=== PATIENT | female | born 1950 | race Caucasian/White ===

== ENCOUNTER 2020-03-12 23:58 | Inpatient (IN) | payer OTHER ==
--- OUTSIDE RECORDS SUMMARY | 2020-03-13 00:08 | XMS REPORT | Clinical Summary ---
:1950 Author Organization [facility] Address [address] [place] [address] Care Team Providers Name Role Phone Asked, Pcp Primary Care Provider Unavailable Allergies Active Allergy Reactions Severity Noted Date Comments Albuterol Unknown Reaction High 03/28/2019 Nausea, fee ls really sick Amoxicillin-Pot Itching Medium 12/10/2014 Clavulanate Medications Medication Sig Dispensed Refills Start End Status Date Date cholecalciferol, Take 2,000 Units 0 Active vitamin D3, by mouth daily. (VITAMIN D3) 1,000 unit tablet ipratropium-albute Take 3 mL by 0 Active rol (DUO-NEB) nebulization 4 0.5-2.5 mg/3 mL (four) times a nebulizer day as needed for wheezing. Lactobacillus Take 1 tablet by 0 Active acidoph-L.bulgar mouth daily. (FLORANEX) 1 million cell tablet aspirin (ECOTRIN) Take 81 mg by 0 Active 81 MG enteric mouth daily. coated tablet ferrous sulfate Take 325 mg by 0 Active 325 (65 FE) MG mouth 3 (three) tablet times a day with meals. melatonin 3 mg Take 3 mg by 0 Ac tive tablet mouth nightly. capecitabine Take 2 tabs po 120 tablet 0 A ctive (XELODA) 500 mg bid on Wednesday 0 021 chemo thru Wednesday on tabletIndications: days of Rectal radiation adenocarcinoma therapy (HCC) amLODIPine Take 10 mg by 2 Disco ntinued (NORVASC) 10 mg mouth daily. 7 019 ( Med List tablet Cleanup) carvedilol (COREG) Take 3.125 mg by 1 03/06/ Discontinued 3.125 MG tablet mouth every 12 7 019 (Med List (twelve) hours. [place] nup) clopidogrel Take 75 mg by 0 Disc ontinued (PLAVIX) 75 mg mouth daily. 7 019 (M ed List tablet Cleanup) MULTAQ 400 mg Take 400 mg by 1 D iscontinued tablet mouth 2 (two) 7 019 (Med L ist times a day. Cleanup ) levalbuterol Inhale 2 puffs 0 Di scontinued (XOPENEX HFA) 45 every 4 (four) 7 019 (Stop Taking at mcg/actuation hours as needed. Discharge) inhaler omeprazole Take 20 mg by 3 Disco ntinued (PriLOSEC) 20 MG mouth daily 7 020 ( Stop Taking at capsule before lunch. Discha rge) valsartan (DIOVAN) Take 320 mg by 2 Discontinued 320 MG tablet mouth nightly. 7 019 ( Stop Taking at Discharge) amLODIPine Take 5 mg by 0 Discon tinued (NORVASC) 5 mg mouth 2 (two) 019 ( Stop Taking at tablet times a day. Dischar ge) carvedilol (COREG) Take 3.125 mg by 0 03/06 03/06 Discontinued 6.25 MG tablet mouth 2 (two) 019 ( Stop Taking at times a day with Dis charge) meals. predniSONE Take 10 mg by 0 Disco ntinued (DELTASONE) 10 mg mouth See Admin 9 019 (Stop Taking at tablet Instructions. Discha rge) Take 4 tablet daily for 3 days,starting on 03/26/2019, then 3 tablet daily for 3 days, then 2 tablet daily for 3 days,then 1 tablet daily for 3 days. pitavastatin Take 2 mg by 0 Disc ontinued calcium (LIVALO) 2 mouth nightly. 019 mg tablet aspirin (ECOTRIN) Take 162 mg by 0 Discontinued 81 MG enteric mouth daily. 019 (St op Taking at coated tablet Discha rge) diazePAM (VALIUM) Take 5 mg by 0 Discontinued 5 MG tablet mouth daily as 020 (St op Taking at needed for Discharge ) anxiety. clonIDINE Take 0.1 mg by 0 Disco ntinued (CATAPRES) 0.1 MG mouth every 6 020 (Stop Taking at tablet (six) hours as Disch arge) needed for high blood pressure (SBP>160). carvedilol (COREG) Take 1 tablet 60 tablet 1 6.25 MG tablet (6.25 mg total) 9 019 by mouth every 12 (twelve) hours for 60 days. valsartan (DIOVAN) Take 1 tablet 60 tablet 1 Discontinued 160 MG tablet (160 mg total) 9 019 ( Stop Taking at by mouth every Disch arge) 12 (twelve) hours for 60 days. arformoterol Take 2 mL (15 120 mL 2 Dis continued (BROVANA) 15 mcg/2 mcg total) by 9 019 mL solution for nebulization 2 nebulization (two) times a day for 90 days. budesonide Take 2 mL (0.5 60 mL 2 Disc ontinued (PULMICORT) 0.5 mg total) by 9 019 mg/2 mL nebulizer nebulization solution once daily for 90 days. pantoprazole Take 1 tablet 60 tablet 2 Dis continued (PROTONIX) 40 MG (40 mg total) by 9 019 EC tablet mouth 2 (two) times a day for 90 days. NIFEdipine XL Take 1 tablet 60 tablet 2 Ex pired (PROCARDIA XL) 30 (30 mg total) by 9 019 MG 24 hr tablet mouth 2 (two) times a day for 90 days. rosuvastatin Take 1 tablet (5 30 tablet 2 (CRESTOR) 5 MG mg total) by 9 019 tablet mouth nightly for 90 days. ipratropium Take 2.5 mL (0.5 675 mL 0 E xpired (ATROVENT) 0.02 % mg total) by 9 019 nebulizer solution nebulization every 6 (six) hours while awake for 90 days. predniSONE Take 3 tablets 7 tablet 0 Expi red (DELTASONE) 10 mg daily for 1 day, 9 019 tablet 2 tablets daily for 3 days, 1 tablet daily for 3 days azithromycin Take 2 tablets 6 tablet 0 Di scontinued (ZITHROMAX) 250 MG (500 mg total) 9 019 (Stop Taking at tablet by mouth daily Disch arge) for 5 days. Take 2 tablets the first day, then 1 tablet daily for 4 days. predniSONE Take 2 tablets 10 tablet 0 Disc ontinued (DELTASONE) 20 mg (40 mg total) by 9 (Stop Taking at tablet mouth daily for Disc harge) 5 days. fluticasone-umecli Inhale 100 mcg 1 each 4 din-vilanter daily for 30 (TRELEGY ELLIPTA) days. 100-62.5-25 mcg blister with device furosemide (LASIX) Take 1 tablet 30 tablet 11 Discontinued 40 mg tablet (40 mg total) by 9 (Stop Taking at mouth daily. Dischar ge) guaiFENesin Take 1 tablet 30 tablet 0 Disc ontinued (MUCINEX) 600 mg (600 mg total) 9 019 tablet extended by mouth 2 (two) release 12hr times a day. arformoterol Take 15 mcg by 0 Di scontinued (BROVANA) 15 mcg/2 nebulization 2 019 (Stop Taking at mL solution for (two) times a Discharge) nebulization day. budesonide Take 0.5 mg by 0 Disc ontinued (PULMICORT) 0.5 nebulization 019 ( Stop Taking at mg/2 mL nebulizer once daily. Discharge) solution Unknown dose doxycycline Take 1 tablet 14 tablet 0 Expi red (VIBRA-TABS) 100 (100 mg total) 9 019 MG tablet by mouth 2 (two) times a day for 7 days. predniSONE Take 4 tabs 55 tablet 0 (DELTASONE) 10 mg (40mg) once 9 019 tablet daily X5 days, then take 3 tabs X5 days, then take 2 tabs X5 days, then take 1 tab X5 days aspirin (ECOTRIN) Take 1 tablet 30 tablet 0 81 MG enteric (81 mg total) by 9 019 coated tablet mouth daily for 30 days. L. Take 2 capsules 60 each 0 Expi red acidophilus,casei, by mouth daily 9 019 rhamnosus (BIO K for 30 days. PLUS) 50 billion cell capsule,delayed release(DR/EC) capsule HYDROcodone-acetam Take 1 tablet by 20 tablet 0 04/05 3/2 inophen (NORCO) mouth every 6 9 019 5-325 mg per (six) hours as tabletIndications: needed for acute pain severe pain for up to 5 days .Acute Pain. Max Daily Amount: 4 tablets BROVANA 15 mcg/2 15 mcg 2 (two) 0 Discontinued mL solution for times a day as 9 020 (Stop Taking at nebulization needed. Dischar ge) aspirin-calcium Take 81 mg by 0 carbonate 81 mouth. 9 019 mg-300 mg calcium(777 mg) tablet furosemide (LASIX) 40 mg daily. 1 Discontinued 20 mg tablet 9 020 (Stop T aking at Discharge) levalbuterol 2 puffs by Other 0 Discontinued (XOPENEX HFA) 45 route every 4 020 (Stop Taking at mcg/actuation (four) hours as Discharge) inhaler needed. XARELTO 20 mg Take 20 mg by 3 Di scontinued tablet mouth every 9 020 (Stop Ta clare at evening. Discharge) valsartan (DIOVAN) Take 320 mg by 3 Discontinued 320 MG tablet mouth daily. 9 020 (St op Taking at Discharge) azithromycin Take first 2 6 tablet 0 Expi red (ZITHROMAX) 250 MG tablets 9 019 tablet together, then 1 every day until finished. famotidine Take 40 mg by 0 Disco ntinued (PEPCID) 40 MG mouth daily. 020 (S top Taking at tablet Discharge) acetaminophen Take 325 mg by 0 D iscontinued (TYLENOL) 325 MG mouth every 4 020 (Stop Taking at tablet (four) hours as Disc harge) needed for mild pain or fever. oxyCODone-acetamin Take 1 tablet by 0 08/06 01/03 Discontinued ophen (PERCOCET) mouth every 4 020 (Stop Taking at 5-325 mg per (four) hours as D ischarge) tabletIndications: needed for acute pain moderate pain (pain score of 4-6) .acute pain. atorvastatin Take 20 mg by 0 Dis continued (LIPITOR) 20 MG mouth daily. 020 ( Stop Taking at tablet Default OP ins Disch arge) benzonatate Take 100 mg by 0 Dis continued (TESSALON) 100 MG mouth 3 (three) 020 (Stop Taking at capsule times a day as Disch arge) needed for cough. budesonide Take 0.5 mg by 0 Disc ontinued (PULMICORT) 0.5 nebulization 020 ( Stop Taking at mg/2 mL nebulizer once daily. Discharge) solution budesonide-formote Inhale 2 puffs 2 0 08/06 01/03 Discontinued rol (SYMBICORT) (two) times a 020 (Stop Taking at 160-4.5 day. Discharge) mcg/actuation inhaler carvedilol (COREG) Take 12.5 mg by 0 08/31 Discontinued 12.5 MG tablet mouth 2 (two) 020 ( Stop Taking at times a day with Dis charge) meals. ciprofloxacin Take 500 mg by 0 D iscontinued (CIPRO) 500 MG mouth every 12 020 (Stop Taking at tablet (twelve) hours. Disc harge) insulin lispro Inject under the 0 Discontinued (HumaLOG) 100 skin 3 (three) 020 ( Stop Taking at unit/mL injection times a day Discharge) before meals. Sliding scale ipratropium Take 500 mcg by 0 Di scontinued (ATROVENT) 0.02 % nebulization 4 020 (Stop Taking at nebulizer solution (four) times a Discharge) day as needed for wheezing or shortness of breath. predniSONE Take 20 mg by 0 Disco ntinued (DELTASONE) 20 mg mouth daily. 020 (Stop Taking at tablet Discharge) tiotropium Place 1 puff (1 30 capsule 0 Ex pired (SPIRIVA) 18 mcg capsule total) 0 020 per inhalation into inhaler and capsule inhale once daily for 30 days. sucralfate Take 10 mL (1 g 1200 mL 0 Exp ired (CARAFATE) 100 total) by mouth 0 020 mg/mL suspension 4 (four) times a day before meals and nightly for 30 days. sodium chloride 1 spray into 0.61 mL 0 E xpired (OCEAN) 0.65 % each nostril 2 0 020 nasal spray (two) times a day for 30 days. potassium chloride Take 2 capsules 120 capsule 0 01/09 (MICRO-K) 10 MEQ (20 mEq total) 0 020 CR capsule by mouth 2 (two) times a day for 30 days. pantoprazole Take 1 tablet 60 tablet 0 Exp ired (PROTONIX) 40 MG (40 mg total) by 0 020 EC tablet mouth 2 (two) times a day for 30 days. losartan (COZAAR) Take 0.5 tablets 30 tablet 0 09/29 25 MG tablet (12.5 mg total) 0 020 by mouth 2 (two) times a day for 30 days. lactulose 20 Take 30 mL (20 g 900 mL gram/30 mL total) by mouth 0 020 solution daily for 30 days. isosorbide Take 1 tablet (5 60 tablet 0 Ex pired dinitrate mg total) by 0 020 (ISORDIL) 5 MG mouth 2 (two) tablet times a day for 30 days. hydrocortisone Insert into the 28 g 0 (ANUSOL-HC) 2.5 % rectum 2 (two) 0 020 rectal cream times a day for 30 days. guaiFENesin Take 1 tablet 60 tablet 0 Expi red (MUCINEX) 600 mg (600 mg total) 0 020 tablet extended by mouth 2 (two) release 12hr times a day for 30 days. docusate sodium Take 1 capsule 60 capsule 0 (COLACE) 100 MG (100 mg total) 0 020 capsule by mouth 2 (two) times a day for 30 days. clopidogreL Take 1 tablet 30 tablet 0 Expi red (PLAVIX) 75 mg (75 mg total) by 0 020 tablet mouth daily for 30 days. amLODIPine Take 1 tablet 60 tablet 0 Expir ed (NORVASC) 2.5 mg (2.5 mg total) 0 020 tablet by mouth 2 (two) times a day for 30 days. amIODarone Take 1 tablet 30 tablet 0 Expir ed (PACERONE) 200 MG (200 mg total) 0 020 tablet by mouth daily for 30 days. furosemide (LASIX) Take 1 tablet 60 tablet 0 40 mg tablet (40 mg total) by 0 020 mouth 2 (two) times a day for 30 days. carvediloL (COREG) Take 1 tablet 60 tablet 0 6.25 MG tablet (6.25 mg total) 0 020 by mouth 2 (two) times a day for 30 days. budesonide Take 2 mL (0.5 120 mL 0 Expi red (PULMICORT) 0.5 mg total) by 0 020 mg/2 mL nebulizer nebulization 2 solutionIndication (two) times a s: Acute on day for 30 days. chronic respiratory failure with hypercapnia (HCC), Acute on chronic combined systolic and diastolic congestive heart failure (HCC) arformoteroL Take 2 mL (15 60 mL 0 Exp ired (BROVANA) 15 mcg/2 mcg total) by 0 020 mL solution for nebulization 2 nebulization (two) times a day as needed (shortness of breath) for up to 30 days. atorvastatin Take 1 tablet 30 tablet 0 Exp ired (LIPITOR) 20 MG (20 mg total) by 0 020 tablet mouth daily for 30 days. Default OP ins ipratropium Take 2.5 mL (0.5 300 mL 0 E xpired (ATROVENT) 0.02 % mg total) by 0 020 nebulizer nebulization solutionIndication every 6 (six) s: Acute on hours for 30 chronic days. respiratory failure with hypercapnia (HCC), Acute on chronic combined systolic and diastolic congestive heart failure (HCC) capecitabine Take 2 tabs po 120 tablet 0 D iscontinued (XELODA) 500 mg bid on Wednesday 0 020 (Reorder) chemo tablet thru Wednesday on days of radiation therapy ondansetron Take 1 tablet (8 30 tablet 5 E xpired (ZOFRAN) 8 MG mg total) by 0 020 tablet mouth every 8 (eight) hours as needed for nausea or vomiting for up to 30 days. Active Problems Problem Noted Date Rectal cancer 09/13/2019 Hypercapnic respiratory failure 04/15/2019 Respiratory distress 03/28/2019 Accelerated hypertension 12/31/2016 HTN (hypertension) 12/27/2016 COPD (chronic obstructive pulmonary disease) 7 HLD (hyperlipidemia) 12/27/2016 History of CEA (carotid endarterectomy) 12/27/2016 SAH (subarachnoid hemorrhage) 12/26/2016 Resolved Problems Problem Noted Date Resolved Date Acute on chronic combined systolic and diastolic congestive 07/12/2019 08/31/2019 heart failure Acute decompensated heart failure 07/12/20192019 Chest pain 07/11/2019 08/31/2019 Overview: Added automatically from request for jameson shoemaker [id number] Hyponatremia 12/31/2016 08/31/2019 Encounters Date Type Specialty Care Team Description 02/22/20 Orders Only Pulmonology Nickolas Astudillo Shortness of br eath (Primary Dx); 20 MD Yakov Chronic respira tory failure with hypoxia (HCC); Centrilobular e mphysema (HCC); Former heavy to bacco smoker 11/14/19 Telephone Radiation Oncology Mayi 20 Vipin Andrea MD 10/23/19 Telephone Consult Oncology Barros, Rectal can cer (HCC) (Primary 20 MD Stacey Dx) Ivan Booker MD 10/23/19 Orders Only Oncology Barros, 20 MD Stacey 10/23/19 Travel 10/18/19 Travel 10/17/19 Telephone Oncology Ivan Booker MD 20 10/05/19 Telephone Oncology Xavier, 20 MARQUITA Christopher 10/04/19 [facility] Radiation Oncology [facility], Encounter Vipin Andrea MD 10/03/19 Travel 10/02/19 Telephone Oncology Xavier, 20 MARQUITA Christopher 09/28/19 Telephone Radiation Oncology Castelan, 20 MARQUITA Gutierres 09/22/19 Travel 09/22/19 Telephone Oncology Ivan Booker MD 20 09/20/19 Telephone Oncology Xavier, 20 MARQUITA Christopher 09/15/19 Orders Only Nephrology Estee, Rod Lobato MD 09/13/19 [facility] Radiation Oncology [facility], Encounter Vipin Andrea MD 09/13/19 [facility] Radiation Oncology [facility], Rectal ca ncer (HCC) (Primary 20 Encounter Vipin Andrea, Dx) Jacqui Mcclain, MARQUITA 09/13/19 Travel 09/12/19 Telephone Radiation Oncology [facility], 20 Vipin Andrea MD 09/12/19 Documentation Oncology Ajmagdy, 20 Chantell Cagle [facility] 09/06/19 Orders Only Oncology Xavier, 20 MARQUITA Christopher 09/06/19 Orders Only Oncology Xavier, Rectal adenocar cinoma (HCC) 20 MARQUITA Christopher (Primary Dx) 09/06/19 Telephone Oncology Ivan Booker MD 20 09/06/19 Telephone Oncology Jaswinder, 20 MELECIO Lee 09/06/19 Orders Only Oncology Barros, 20 MD Stacey 09/05/19 Telephone Radiation Oncology [facility], 20 Vpiin Andrea MD 09/04/19 [facility] Radiation Oncology [facility], - Encounter Vipin Andrea 09/05/19 MD Lomeli 08/24/19 Anesthesia Event Gastroenterology Kain, 20 MD Noe Nguyen Teri, NP 08/24/19 Surgery Gastroenterology Arcadio, COLONOSCOPY with biopsies and 20 MD Baron polypectomy 08/21/19 Surgery Procedural Kris Parrish CARDIOVERSIO N [[id number] 20 Cardiology MD Isi (CPT)] 08/21/19 Anesthesia Event Procedural Scott Yon 20 Cardiology WMD Cullen Morales Myra N., COOPERER 08/14/19 Surgery Procedural Carson, Carotid artery stent w 20 Cardiology Tello Khan, embolic protect ion [66811 (CPT)] 08/11/19 Surgery Procedural Kris Parrish CV PCI PERCUTAN EOUS CARDIAC 20 Ned Snowden MD ANGIOPLASTY [[id number] (CPT)] 08/08/19 Surgery Gastroenterology Arcadio, ESOPHAGOGAS TRODUODENOSCOPY MD Baron (EGD)/clip x1/g old probe 08/08/19 Anesthesia Event Gastroenterology Bebo 20 MD Paresh 07/29/19 [facility], 20 Encounter Facility Shailesh Andrea MD 07/20/19 Surgery Gastroenterology Arcadio, ESOPHAGOGAS TRODUODENOSCOPY MD Baron (EGD) WITH BIOP SIES with clips x2 07/20/19 Anesthesia Event Gastroenterology Traci Aponte 20 07/18/19 Surgery Procedural HustKris CV LEFT HEART C ATH LV GRAM Ned Snowden MD WITH CORS [[id number] (CPT)] 07/17/19 Telephone Cardiovascular Romero, 20 Gwen Milton MA 07/12/19 [facility] Internal [facility], Centrilobul ar emphysema (HCC) (Primary Dx); 20 - Encounter Medicine Shailesh Andrea, Chest pain, uns pecified type; 08/31/19 Bilateral carot id artery occlusion; 20 Hyponatremia; Acute on chroni c respiratory failure with hypercapnia (HCC); Acute on chroni c combined systolic and diastolic congestive heart failure (HCC); Athscl heart di sease of [place] cor art w oth ang pctrs (HCC); Coronary artery disease involving [place] coronary artery of [place] heart, angina presence unspecified; Paroxysmal atri al fibrillation (HCC) 07/11/19 Intake Access 20 05/19/20 Emergency Emergency Medicine Deangelo Yen-Te Nasal con gestion (Primary Dx); 19 Luis Fernando, Fever, unspecif ied fever cause 05/17/20 Office Visit Pulmonology [place], Chronic respira tory failure with hypoxia (HCC) (Primary Dx); 19 MD Gayle Centrilobular e mphysema (HCC) 04/16/20 Anesthesia Event General Surgery Roberto, 19 MD Darcy Garza Renea B., COOPERER 04/16/20 Surgery General Surgery Reynaldo, EXPLORATION OF BRACHIAL 19 Maria Fernanda Rodriguez MD ARTERY, OPEN TH ROMBECTOMY, AND PATCH ANGIO PLASTY. 04/15/20 Anesthesia Event General Surgery Roberto, 19 MD Darcy Garza Renea B., COOPERER 04/15/20 Surgery General Surgery Reynaldo, ARTERIOGRAM, REMOVAL OF 19 Maria Fernanda Rodriguez MD ARTERIAL FOREIG N BODY, AND BALLOON ANGIOP LASTY OF RIGHT SUBCLAVIAN TOM RY. 04/15/20 Hospital General Internal Da Silva, Acute on ch ronic respiratory 19 - Encounter Medicine Jostin Garcia, failure with hy percapnia 04/21/20 ([facility]) (Primary Dx) 19 Agustín Mckeon MD Lapsia, MD Amaury Mahmood, MD Samm 04/13/20 Orders Only Pulmonology El, 19 Mando Valerio MD 04/13/20 Orders Only Pulmonology El, 19 Mando Valerio MD 03/28/20 [facility] General Internal Rehrer, Mercer Respiratory distress (Primary Dx); 19 - Encounter Medicine DO Ray Hypertensive emergency; 04/02/20 Santos, COPD with acute exacerbation ([facility]); 19 MD Annika Anxiety; Espinoza, Hyperlipidemia, unspecified hyperlipidemia type Patrick Chambers MD after 03/13/2019 Social History Tobacco Use Types Packs/Day Years Used Date Former Smoker Quit: 2008 Smokeless Tobacco: Never Used Alcohol Use Drinks/Week oz/Week Comments No Sex Assigned at Date Recorded Not on file Job Start Date Occupation Industry Not on file Not on file Not on file Travel History Travel Start Travel End No recent travel history available. Last Filed Vital Signs Vital Sign Reading Time Taken Comments Blood Pressure 160/70 09/13/2019 2:39 PM CDT Pulse 78 09/13/2019 2:39 PM CDT Temperature 36.8 C (98.2 F) 09/13/2019 2:39 PM CDT Respiratory Rate 19 09/13/2019 2:39 PM CDT Oxygen Saturation 95% 09/13/2019 2:39 PM CDT Inhaled Oxygen Concentration - - Weight 78 kg (171 lb 14.4 oz) 09/13/2019 2:39 PM CDT Height 149.9 cm (4' 11") 09/13/2019 2:39 PM CDT Body Mass Index 34.72 09/13/2019 2:39 PM CDT Plan of Treatment Health Maintenance Due Date Last Done Comments BREAST CANCER SCREENING 1998 COLONOSCOPY SCREENING 1998 SHINGLES VACCINES (#1) 1998 65+ PNEUMOCOCCAL VACCINE (1 of 2 - PCV13) 2013 INFLUENZA VACCINE 04/04/2020 Implants Implanted Type Area Global Logistics Manager Device Shelf Model / Identifier Expiration Serial / Date Lot Device Vasclr Clsr Vasoactive Intstnl Peptd 6fr Angio- Seal - [id number] Cardiovascular N/A: N/A 09/01/2017 [id number] / Implanted: 12/28/2016 at [facility] [address] (Quantity not on file) Implants / [id number] Stent System 3.0 X 15mm Resolute Cipriano Otw Coronary - [id number] Coronary Stents N/A: N/A [employer] Lantern [id number] / Implanted: 08/11/2019 at [facility] [address] (Quantity not on file) - CARDIAC / RYHTYM MGMT Clip Resolution 360 235cm 2.8mm (10/Bx) - [id number] Medical Cli ps for N/A: N/A [facility] ENDOSCOPY [id number] / Implanted: 07/20/2019 at [facility] [address] (Quantity not on file) Internal Use / Clip Resolution 360 235cm 2.8mm (10/Bx) - [id number] Medical Cli ps for N/A: N/A [facility] ENDOSCOPY [id number] / Implanted: 07/20/2019 at [facility] [address] (Quantity not on file) Internal Use / Clip Resolution 360 235cm 2.8mm (10/Bx) - [id number] Medical Cli ps for N/A: N/A [facility] ENDOSCOPY [id number] / Implanted: 08/08/2019 at [facility] (Quantity not on file) Internal Use / Clip Resolution 360 235cm 2.8mm (10/Bx) - [id number] Medical Cli ps for N/A: N/A [facility] ENDOSCOPY [id number] / Implanted: 08/24/2019 at [facility] [address] (Quantity not on file) Internal Use / Clip Resolution 360 235cm 2.8mm () - [id number] Medical Cli ps for N/A: N/A [facility] ENDOSCOPY [id number] / Implanted: 08/24/2019 at [facility] (Quantity not on file) Internal Use / Stent Crtd Xact Slf-Xpndbl Tprd Estrada 7-9x30mm - [id number] Pe ripheral or N/A: N/A PICHARDO 02/01/2022 [id number] / Implanted: 08/14/2019 at [facility] (Quantity not on file) Rodger iary Stents VASCULAR / DEVICES [id number] Catheter Angio Mechanical Intern Ii 5fr 100cm Selc Braidd Torque [place] - [id number] Surgical N/A: N/A [facility] PERIPHERAL [id number] / Implanted: 12/28/2016 at [facility] [address] (Quantity not on file) Imp lants; INTERVENTION / Expanders; VASCULAR JAMESON Extenders; Surgical Wires System Clsr Sut Meditd 6fr Perclose Proglide - [id number] Surgic al N/A: N/A PICHARDO 01/01/2021 [id number] / Implanted: 04/15/2019 at [facility] (Quantity not on file) Im plants; VASCULAR / Expanders; DEVICES [id number] Extenders; Surgical Wires System Clsr Sut Meditd 6fr Perclose Proglide - [id number] Surgic al N/A: N/A PICHARDO 12/02/2020 [id number] / Implanted: 04/15/2019 at [facility] (Quantity not on file) Im plants; VASCULAR / Expanders; DEVICES [id number] Extenders; Surgical Wires Patch Vasclr Perph 0.8x8cm Vascu-Guard - [id number] Vascular Gra ft Right: MONTEZ 10/19/2023 [id number] / Implanted: Qty: 1 on 04/16/2019 by Maria Fernanda Jacobs MD a t [facility] Arm, BIOSCIENCE / Upper [id number] Procedures Procedure Name Priority Date/Time Associated Comments Diagnosis B NATRIURETIC PEPTIDE Routine 08/31/2019 6:20 Re sults for this AM SENIOR CORPORATE ACCOUNTANT procedure are i n the results section. HC COMPLETE BLD COUNT Routine 08/31/2019 6:20 Re sults for this W/AUTO DIFF AM SENIOR CORPORATE ACCOUNTANT procedure are i n the results section. ESTIMATED GFR Routine 08/31/2019 4:00 Results fo r this AM SENIOR CORPORATE ACCOUNTANT procedure are i n the results section. MAGNESIUM LEVEL Routine 08/31/2019 4:00 Results for this AM SENIOR CORPORATE ACCOUNTANT procedure are i n the results section. BASIC METABOLIC PANEL Routine 08/31/2019 4:00 Re sults for this AM SENIOR CORPORATE ACCOUNTANT procedure are i n the results section. XR CHEST 1 VW PORTABLE STAT 08/31/2019 12:34 R esults for this AM SENIOR CORPORATE ACCOUNTANT procedure are i n the results section. MRI RECTAL W WO CONTRAST Routine 08/30/2019 7:35 Results for this PM SENIOR CORPORATE ACCOUNTANT procedure are i n the results section. CT ABDOMEN PELVIS WO Routine 08/30/2019 8:24 Res ults for this CONTRAST AM [employer]IOR [employer]PORATE ACCOUNTANT procedure are i n the results section. HC COMPLETE BLD COUNT Routine 08/30/2019 6:00 Re sults for this W/AUTO DIFF AM S[employer]IOR CORPORATE ACCOUNTANT procedure are i n the results section. ESTIMATED GFR Routine 08/30/2019 4:00 Results fo r this AM SENIOR CORPORATE ACCOUNTANT procedure are i n the results section. BASIC METABOLIC PANEL Routine 08/30/2019 4:00 Re sults for this AM [employer]IOR [employer]PORATE ACCOUNTANT procedure are i n the results section. HC COMPLETE BLD COUNT Routine 08/29/2019 5:45 Re sults for this W/AUTO DIFF AM [employer]IOR [employer]PORATE ACCOUNTANT procedure are i n the results section. ESTIMATED GFR Routine 08/29/2019 4:00 Results fo r this AM [employer]IOR [employer]PORATE ACCOUNTANT procedure are i n the results section. BASIC METABOLIC PANEL Routine 08/29/2019 4:00 Re sults for this AM [employer]IOR [employer]PORATE ACCOUNTANT procedure are i n the results section. ESTIMATED GFR Routine 08/28/2019 4:50 Results fo r this AM [employer]IOR [employer]PORATE ACCOUNTANT procedure are i n the results section. BASIC METABOLIC PANEL Routine 08/28/2019 4:50 Re sults for this AM [employer]IOR [employer]PORATE ACCOUNTANT procedure are i n the results section. HC COMPLETE BLD COUNT Routine 08/28/2019 4:50 Re sults for this W/AUTO DIFF AM [employer]IOR [employer]PORATE ACCOUNTANT procedure are i n the results section. HC COMPLETE BLD COUNT Timed 08/27/2019 2:15 Re sults for this W/AUTO DIFF PM [employer]ENIOR CORPORATE ACCOUNTANT procedure are i n the results section. ESTIMATED GFR Timed 08/27/2019 2:00 Results fo r this PM [employer]IOR [employer]PORATE ACCOUNTANT procedure are i n the results section. BASIC METABOLIC PANEL Timed 08/27/2019 2:00 Re sults for this PM [employer]IOR [employer]PORATE ACCOUNTANT procedure are i n the results section. HEMOGLOBIN & HEMATOCRIT STAT 08/26/2019 11:20 Results for this PM [employer]IOR [employer]PORATE ACCOUNTANT procedure are i n the results section. SODIUM LEVEL Routine 08/26/2019 3:20 Results for this PM [employer]IOR [employer]PORATE ACCOUNTANT procedure are i n the results section. MANUAL DIFFERENTIAL Routine 08/26/2019 5:40 Resu lts for this AM [employer]IOR [employer]PORATE ACCOUNTANT procedure are i n the results section. PARTIAL THROMBOPLASTIN Routine 08/26/2019 5:40 R esults for this TIME (PTT) AM [employer]IOR [employer]PORATE ACCOUNTANT procedure are i n the results section. PROTHROMBIN TIME WITH Routine 08/26/2019 5:40 Re sults for this INR AM [employer]IOR [employer]PORATE ACCOUNTANT procedure are i n the results section. CBC WITH PLATELET AND Routine 08/26/2019 5:40 Re sults for this DIFFERENTIAL AM [employer]IOR [employer]PORATE ACCOUNTANT procedure are i n the results section. ESTIMATED GFR Routine 08/26/2019 5:40 Results fo r this AM [employer]IOR [employer]PORATE ACCOUNTANT procedure are i n the results section. MAGNESIUM LEVEL Routine 08/26/2019 5:40 Results for this AM SENIOR [employer]PORATE ACCOUNTANT procedure are i n the results section. B NATRIURETIC PEPTIDE Routine 08/26/2019 5:40 Re sults for this AM SENIOR [employer]PORATE ACCOUNTANT procedure are i n the results section. BASIC METABOLIC PANEL Routine 08/26/2019 5:40 Re sults for this AM S[employer]IOR [employer]PORATE ACCOUNTANT procedure are i n the results section. ESTIMATED GFR Routine 08/25/2019 5:38 Results fo r this AM S[employer]IOR [employer]PORATE ACCOUNTANT procedure are i n the results section. CARCINOEMBRYONIC ANTIGEN Routine 08/25/2019 5:38 Results for this (CEA) AM [employer]IOR [employer]PORATE ACCOUNTANT procedure are i n the results section. MAGNESIUM LEVEL Routine 08/25/2019 5:38 Results for this AM [employer]IOR [employer]PORATE ACCOUNTANT procedure are i n the results section. B NATRIURETIC PEPTIDE Routine 08/25/2019 5:38 Re sults for this AM SENIOR [employer]PORATE ACCOUNTANT procedure are i n the results section. BASIC METABOLIC PANEL Routine 08/25/2019 5:38 Re sults for this AM S[employer]IOR [employer]PORATE ACCOUNTANT procedure are i n the results section. HC COMPLETE BLD COUNT Routine 08/25/2019 5:38 Re sults for this W/AUTO DIFF AM [employer]IOR [employer]PORATE [employer]ANT procedure are i n the results section. THYROID PEROXIDASE Routine 08/25/2019 5:38 Resul ts for this ANTIBODY AM [employer]ATE [employer]ANT procedure are i n the results section. SURGICAL PATHOLOGY Routine 08/24/2019 10:11 Resul ts for this REQUEST AM [employer]IOR [employer]PORATE ACCOUNTANT procedure are i n the results section. SURGICAL PATHOLOGY Routine 08/24/2019 10:11 Resul ts for this REQUEST AM [employer]IOR [employer]PORATE [employer]ANT procedure are i n the results section. SURGICAL PATHOLOGY Routine 08/24/2019 9:11 Resul ts for this REQUEST AM [employer]IOR [employer]PORATE ACC[employer]ANT procedure are i n the results section. COLONOSCOPY 08/24/2019 7:53 Chest pain, AM S[employer]IOR CORPORATE ACCOUNTANT unspecified type B NATRIURETIC PEPTIDE Routine 08/24/2019 4:45 Re sults for this AM S[employer]IOR CORPORATE ACCOUNTANT procedure are i n the results section. HC COMPLETE BLD COUNT Routine 08/24/2019 4:45 Re sults for this W/AUTO DIFF AM [employer]IOR [employer]PORATE ACCOUNTANT procedure are i n the results section. ESTIMATED GFR Routine 08/24/2019 4:00 Results fo r this AM [employer]IOR [employer]PORATE ACCOUNTANT procedure are i n the results section. MAGNESIUM LEVEL Routine 08/24/2019 4:00 Results for this AM [employer]IOR [employer]PORATE ACCOUNTANT procedure are i n the results section. BASIC METABOLIC PANEL Routine 08/24/2019 4:00 Re sults for this AM S[employer]IOR [employer]PORATE ACCOUNTANT procedure are i n the results section. US THYROID Routine 08/23/2019 9:30 Results for this AM S[employer]IOR [employer]PORATE ACCOUNTANT procedure are i n the results section. B NATRIURETIC PEPTIDE Routine 08/23/2019 6:05 Re sults for this AM SENIOR CORPORATE ACCOUNTANT procedure are i n the results section. HC COMPLETE BLD COUNT Routine 08/23/2019 6:05 Re sults for this W/AUTO DIFF AM S[employer]IOR [employer]PORATE ACCOUNTANT procedure are i n the results section. ESTIMATED GFR Routine 08/23/2019 4:00 Results fo r this AM [employer]IOR [employer]PORATE ACCOUNTANT procedure are i n the results section. T3 Routine 08/23/2019 4:00 Results for this AM S[employer]IOR CORPORATE ACCOUNTANT procedure are i n the results section. T4, FREE Routine 08/23/2019 4:00 Results for this AM [employer]IOR CORPORATE ACCOUNTANT procedure are i n the results section. THYROID STIMULATING Routine 08/23/2019 4:00 Resu lts for this HORMONE AM [employer]IOR [employer]PORATE ACCOUNTANT procedure are i n the results section. MAGNESIUM LEVEL Routine 08/23/2019 4:00 Results for this AM SENIOR CORPORATE ACCOUNTANT procedure are i n the results section. BASIC METABOLIC PANEL Routine 08/23/2019 4:00 Re sults for this AM S[employer]IOR CORPORATE ACCOUNTANT procedure are i n the results section. MANUAL DIFFERENTIAL Routine 08/22/2019 6:05 Resu lts for this AM S[employer]IOR CORPORATE ACCOUNTANT procedure are i n the results section. B NATRIURETIC PEPTIDE Routine 08/22/2019 6:05 Re sults for this AM SENIOR CORPORATE ACCOUNTANT procedure are i n the results section. CBC WITH PLATELET AND Routine 08/22/2019 6:05 Re sults for this DIFFERENTIAL AM [employer]IOR [employer]PORATE ACCOUNTANT procedure are i n the results section. ESTIMATED GFR Routine 08/22/2019 4:00 Results fo r this AM SENIOR CORPORATE ACCOUNTANT procedure are i n the results section. MAGNESIUM LEVEL Routine 08/22/2019 4:00 Results for this AM S[employer]IOR CORPORATE ACCOUNTANT procedure are i n the results section. BASIC METABOLIC PANEL Routine 08/22/2019 4:00 Re sults for this AM S[employer]IOR CORPORATE ACCOUNTANT procedure are i n the results section. CT HEAD WO CONTRAST Routine 08/21/2019 11:33 Resu lts for this AM [employer]IOR CORPORATE ACCOUNTANT procedure are i n the results section. ECG 12-LEAD Routine 08/21/2019 9:38 Results for this AM S[employer]IOR CORPORATE ACCOUNTANT procedure are i n the results section. EP CARDIOVERSION Routine 08/21/2019 9:33 Paroxysmal atrial AM [employer]IOR CORPORATE ACCOUNTANT fibrillation (HCC) Procedure Note - Nic Parrish MD - 08/30/2019 4:48 PM SENIOR CORPORATE ACCOUNTANT B NATRIURETIC PEPTIDE Routine 08/21/2019 Result s for 4:48 AM SENIOR CORPORATE ACCOUNTANT this procedure are in the results section. HC COMPLETE BLD COUNT W/AUTO Routine 08/21/2019 Results for DIFF 4:48 AM SENIOR CORPORATE ACCOUNTANT this procedure are in the results section. POC GLUCOSE Routine 08/21/2019 Results for 4:45 AM SENIOR CORPORATE ACCOUNTANT this procedure are in the results section. ESTIMATED GFR Routine 08/21/2019 Results for 4:00 AM SENIOR CORPORATE ACCOUNTANT this procedure are in the results section. MAGNESIUM LEVEL Routine 08/21/2019 Results for 4:00 AM SENIOR CORPORATE ACCOUNTANT this procedure are in the results section. PHOSPHORUS LEVEL Routine 08/21/2019 Results for 4:00 AM SENIOR CORPORATE ACCOUNTANT this procedure are in the results section. BASIC METABOLIC PANEL Routine 08/21/2019 Result s for 4:00 AM SENIOR CORPORATE ACCOUNTANT this procedure are in the results section. PREPARE RBC Routine 08/20/2019 Results for 9:35 AM SENIOR CORPORATE ACCOUNTANT this procedure are in the results section. TYPE AND SCREEN Routine 08/20/2019 Results for 9:35 AM SENIOR CORPORATE ACCOUNTANT this procedure are in the results section. CBC HEMOGRAM Timed 08/20/2019 Results for 5:49 AM SENIOR CORPORATE ACCOUNTANT this procedure are in the results section. ANTI XA, UNFRACTIONATED Routine 08/20/2019 Resu lts for 5:49 AM SENIOR CORPORATE ACCOUNTANT this procedure are in the results section. ANTI XA, UNFRACTIONATED Routine 08/19/2019 Resu lts for 5:20 AM SENIOR CORPORATE ACCOUNTANT this procedure are in the results section. ESTIMATED GFR Routine 08/19/2019 Results for 5:20 AM SENIOR CORPORATE ACCOUNTANT this procedure are in the results section. MAGNESIUM LEVEL Routine 08/19/2019 Results for 5:20 AM SENIOR CORPORATE ACCOUNTANT this procedure are in the results section. B NATRIURETIC PEPTIDE Routine 08/19/2019 Result s for 5:20 AM SENIOR CORPORATE ACCOUNTANT this procedure are in the results section. BASIC METABOLIC PANEL Routine 08/19/2019 Result s for 5:20 AM SENIOR CORPORATE ACCOUNTANT this procedure are in the results section. HC COMPLETE BLD COUNT W/AUTO Routine 08/19/2019 Results for DIFF 5:20 AM SENIOR CORPORATE ACCOUNTANT this procedure are in the results section. ANTI XA, UNFRACTIONATED Routine 08/18/2019 Resu lts for 10:10 PM SENIOR CORPORATE ACCOUNTANT this procedure are in the results section. ANTI XA, UNFRACTIONATED Timed 08/18/2019 Resu lts for 3:50 PM SENIOR CORPORATE ACCOUNTANT this procedure are in the results section. ANTI XA, UNFRACTIONATED Timed 08/18/2019 Resu lts for 5:49 AM SENIOR CORPORATE ACCOUNTANT this procedure are in the results section. ESTIMATED GFR Routine 08/18/2019 Results for 4:00 AM SENIOR CORPORATE ACCOUNTANT this procedure are in the results section. MAGNESIUM LEVEL Routine 08/18/2019 Results for 4:00 AM SENIOR CORPORATE ACCOUNTANT this procedure are in the results section. B NATRIURETIC PEPTIDE Routine 08/18/2019 Result s for 4:00 AM SENIOR CORPORATE ACCOUNTANT this procedure are in the results section. BASIC METABOLIC PANEL Routine 08/18/2019 Result s for 4:00 AM SENIOR CORPORATE ACCOUNTANT this procedure are in the results section. HC COMPLETE BLD COUNT W/AUTO Routine 08/18/2019 Results for DIFF 4:00 AM SENIOR CORPORATE ACCOUNTANT this procedure are in the results section. ANTI XA, UNFRACTIONATED Routine 08/17/2019 Resu lts for 11:23 PM SENIOR CORPORATE ACCOUNTANT this procedure are in the results section. ANTI XA, UNFRACTIONATED Routine 08/17/2019 Resu lts for 3:24 PM SENIOR CORPORATE ACCOUNTANT this procedure are in the results section. XR CHEST 1 VW PORTABLE Routine 08/17/2019 Resul ts for 10:20 AM SENIOR CORPORATE ACCOUNTANT this procedure are in the results section. ANTI XA, UNFRACTIONATED Routine 08/17/2019 Resu lts for 8:27 AM SENIOR CORPORATE ACCOUNTANT this procedure are in the results section. ESTIMATED GFR Routine 08/17/2019 Results for 4:24 AM SENIOR CORPORATE ACCOUNTANT this procedure are in the results section. TOTAL IRON BINDING CAPACITY Routine 08/17/2019 Results for 4:24 AM SENIOR CORPORATE ACCOUNTANT this procedure are in the results section. FERRITIN LEVEL Routine 08/17/2019 Results for 4:24 AM SENIOR CORPORATE ACCOUNTANT this procedure are in the results section. MAGNESIUM LEVEL Routine 08/17/2019 Results for 4:24 AM SENIOR CORPORATE ACCOUNTANT this procedure are in the results section. B NATRIURETIC PEPTIDE Routine 08/17/2019 Result s for 4:24 AM SENIOR CORPORATE ACCOUNTANT this procedure are in the results section. BASIC METABOLIC PANEL Routine 08/17/2019 Result s for 4:24 AM SENIOR CORPORATE ACCOUNTANT this procedure are in the results section. HC COMPLETE BLD COUNT W/AUTO Routine 08/17/2019 Results for DIFF 4:24 AM SENIOR CORPORATE ACCOUNTANT this procedure are in the results section. PROTHROMBIN TIME WITH INR STAT 08/16/2019 Re sults for 11:38 PM SENIOR CORPORATE ACCOUNTANT this procedure are in the results section. PARTIAL THROMBOPLASTIN TIME STAT 08/16/2019 Results for (PTT) 11:38 PM SENIOR CORPORATE ACCOUNTANT this procedure are in the results section. ANTI XA, UNFRACTIONATED STAT 08/16/2019 Resu lts for 11:38 PM SENIOR CORPORATE ACCOUNTANT this procedure are in the results section. ESTIMATED GFR Timed 08/16/2019 Results for 12:55 PM SENIOR CORPORATE ACCOUNTANT this procedure are in the results section. MAGNESIUM LEVEL Timed 08/16/2019 Results for 12:55 PM SENIOR CORPORATE ACCOUNTANT this procedure are in the results section. BASIC METABOLIC PANEL Timed 08/16/2019 Result s for 12:55 PM SENIOR CORPORATE ACCOUNTANT this procedure are in the results section. ESTIMATED GFR Routine 08/16/2019 Results for 5:15 AM SENIOR CORPORATE ACCOUNTANT this procedure are in the results section. MAGNESIUM LEVEL Routine 08/16/2019 Results for 5:15 AM SENIOR CORPORATE ACCOUNTANT this procedure are in the results section. BASIC METABOLIC PANEL Routine 08/16/2019 Result s for 5:15 AM SENIOR CORPORATE ACCOUNTANT this procedure are in the results section. HC COMPLETE BLD COUNT W/AUTO Routine 08/16/2019 Results for DIFF 5:15 AM SENIOR CORPORATE ACCOUNTANT this procedure are in the results section. XR CHEST 1 VW PORTABLE Routine 08/15/2019 Resul ts for 10:24 AM SENIOR CORPORATE ACCOUNTANT this procedure are in the results section. HC COMPLETE BLD COUNT W/AUTO Routine 08/15/2019 Results for DIFF 5:00 AM SENIOR CORPORATE ACCOUNTANT this procedure are in the results section. LACTIC ACID LEVEL, SEPSIS - NOW Routine 08/15/2019 Results for AND REPEAT 2X EVERY 3 HOURS 4:00 AM SENIOR CORPORATE ACCOUNTANT this procedure are in the results section. ESTIMATED GFR Routine 08/15/2019 Results for 4:00 AM SENIOR CORPORATE ACCOUNTANT this procedure are in the results section. HEPATIC FUNCTION PANEL Routine 08/15/2019 Resul ts for 4:00 AM SENIOR CORPORATE ACCOUNTANT this procedure are in the results section. BASIC METABOLIC PANEL Routine 08/15/2019 Result s for 4:00 AM SENIOR CORPORATE ACCOUNTANT this procedure are in the results section. ARTERIAL BLOOD GAS STAT 08/14/2019 Results f or 11:46 PM SENIOR CORPORATE ACCOUNTANT this procedure are in the results section. BLOOD CULTURE, AEROBIC & Routine 08/14/2019 Res ults for ANAEROBIC 11:45 PM SENIOR CORPORATE ACCOUNTANT this procedure are in the results section. RESPIRATORY PATHOGEN PANEL Routine 08/14/2019 R esults for 11:45 PM SENIOR CORPORATE ACCOUNTANT this procedure are in the results section. LACTIC ACID LEVEL, SEPSIS - NOW Timed 08/14/2019 Results for AND REPEAT 2X EVERY 3 HOURS 11:21 PM SENIOR CORPORATE ACCOUNTANT this procedure are in the results section. BLOOD CULTURE, AEROBIC & Routine 08/14/2019 Res ults for ANAEROBIC 11:10 PM SENIOR CORPORATE ACCOUNTANT this procedure are in the results section. XR CHEST 1 VW PORTABLE STAT 08/14/2019 Resul ts for 8:25 PM SENIOR CORPORATE ACCOUNTANT this procedure are in the results section. HC COMPLETE BLD COUNT W/AUTO STAT 08/14/2019 Results for DIFF 8:15 PM SENIOR CORPORATE ACCOUNTANT this procedure are in the results section. ARTERIAL BLOOD GAS STAT 08/14/2019 Results f or 8:10 PM SENIOR CORPORATE ACCOUNTANT this procedure are in the results section. TROPONIN STAT 08/14/2019 Results for 8:05 PM SENIOR CORPORATE ACCOUNTANT this procedure are in the results section. LACTIC ACID LEVEL STAT 08/14/2019 Results fo r 7:54 PM SENIOR CORPORATE ACCOUNTANT this procedure are in the results section. MAGNESIUM LEVEL STAT 08/14/2019 Results for 7:54 PM SENIOR CORPORATE ACCOUNTANT this procedure are in the results section. PHOSPHORUS LEVEL STAT 08/14/2019 Results for 7:54 PM SENIOR CORPORATE ACCOUNTANT this procedure are in the results section. ESTIMATED GFR STAT 08/14/2019 Results for 7:54 PM SENIOR CORPORATE ACCOUNTANT this procedure are in the results section. BASIC METABOLIC PANEL STAT 08/14/2019 Result s for 7:54 PM SENIOR CORPORATE ACCOUNTANT this procedure are in the results section. ECG 12-LEAD STAT 08/14/2019 Results for 7:51 PM SENIOR CORPORATE ACCOUNTANT this procedure are in the results section. CV CAROTID ARTERY STENT W Routine 08/14/2019 Re sults for EMBOLIC PROTECTION 4:43 PM SENIOR CORPORATE ACCOUNTANT this procedure are in the results section. ACTIVATED CLOTTING TIME Routine 08/14/2019 Resu lts for 4:19 PM SENIOR CORPORATE ACCOUNTANT this procedure are in the results section. ESTIMATED GFR Routine 08/14/2019 Results for 4:15 AM SENIOR CORPORATE ACCOUNTANT this procedure are in the results section. PROTHROMBIN TIME WITH INR Routine 08/14/2019 Re sults for 4:15 AM SENIOR CORPORATE ACCOUNTANT this procedure are in the results section. MAGNESIUM LEVEL Routine 08/14/2019 Results for 4:15 AM SENIOR CORPORATE ACCOUNTANT this procedure are in the results section. B NATRIURETIC PEPTIDE Routine 08/14/2019 Result s for 4:15 AM SENIOR CORPORATE ACCOUNTANT this procedure are in the results section. BASIC METABOLIC PANEL Routine 08/14/2019 Result s for 4:15 AM SENIOR CORPORATE ACCOUNTANT this procedure are in the results section. HC COMPLETE BLD COUNT W/AUTO Routine 08/14/2019 Results for DIFF 4:15 AM SENIOR CORPORATE ACCOUNTANT this procedure are in the results section. PREPARE RBC Routine 08/13/2019 Results for 12:18 PM SENIOR CORPORATE ACCOUNTANT this procedure are in the results section. TYPE AND SCREEN Routine 08/13/2019 Results for 12:18 PM SENIOR CORPORATE ACCOUNTANT this procedure are in the results section. ESTIMATED GFR Routine 08/13/2019 Results for 4:00 AM SENIOR CORPORATE ACCOUNTANT this procedure are in the results section. MAGNESIUM LEVEL Routine 08/13/2019 Results for 4:00 AM SENIOR CORPORATE ACCOUNTANT this procedure are in the results section. B NATRIURETIC PEPTIDE Routine 08/13/2019 Result s for 4:00 AM SENIOR CORPORATE ACCOUNTANT this procedure are in the results section. BASIC METABOLIC PANEL Routine 08/13/2019 Result s for 4:00 AM SENIOR CORPORATE ACCOUNTANT this procedure are in the results section. HC COMPLETE BLD COUNT W/AUTO Routine 08/13/2019 Results for DIFF 4:00 AM SENIOR CORPORATE ACCOUNTANT this procedure are in the results section. GRAM STAIN Routine 08/12/2019 Results for 2:00 PM SENIOR CORPORATE ACCOUNTANT this procedure are in the results section. XR CHEST 1 VW PORTABLE Routine 08/12/2019 Resul ts for 8:20 AM SENIOR CORPORATE ACCOUNTANT this procedure are in the results section. ESTIMATED GFR Routine 08/12/2019 Results for 6:06 AM SENIOR CORPORATE ACCOUNTANT this procedure are in the results section. MAGNESIUM LEVEL Routine 08/12/2019 Results for 6:06 AM SENIOR CORPORATE ACCOUNTANT this procedure are in the results section. B NATRIURETIC PEPTIDE Routine 08/12/2019 Result s for 6:06 AM SENIOR CORPORATE ACCOUNTANT this procedure are in the results section. BASIC METABOLIC PANEL Routine 08/12/2019 Result s for 6:06 AM SENIOR CORPORATE ACCOUNTANT this procedure are in the results section. HC COMPLETE BLD COUNT W/AUTO Routine 08/12/2019 Results for DIFF 6:06 AM SENIOR CORPORATE ACCOUNTANT this procedure are in the results section. POC GLUCOSE Routine 08/11/2019 Results for 1:04 PM SENIOR CORPORATE ACCOUNTANT this procedure are in the results section. ECG PRE/POST OP Routine 08/11/2019 Results for 11:28 AM SENIOR CORPORATE ACCOUNTANT this procedure are in the results section. CV SELECTIVE CORONARY Routine 08/11/2019 Athscl heart Result s for ANGIOGRAPHY 11:06 AM SENIOR CORPORATE ACCOUNTANT disease of [place] this cor art w oth ang procedure are pctrs (HCC) in the results section. CV PCI Routine 08/11/2019 Athscl heart Results for 11:06 AM SENIOR CORPORATE ACCOUNTANT disease of [place] this cor art w oth ang procedure are pctrs (HCC) in the results section. ACTIVATED CLOTTING TIME Routine 08/11/2019 Resu lts for 10:29 AM SENIOR CORPORATE ACCOUNTANT this procedure are in the results section. PARTIAL THROMBOPLASTIN TIME Routine 08/11/2019 Results for (PTT) 4:10 AM SENIOR CORPORATE ACCOUNTANT this procedure are in the results section. B NATRIURETIC PEPTIDE Routine 08/11/2019 Result s for 4:10 AM SENIOR CORPORATE ACCOUNTANT this procedure are in the results section. HC COMPLETE BLD COUNT W/AUTO Routine 08/11/2019 Results for DIFF 4:10 AM SENIOR CORPORATE ACCOUNTANT this procedure are in the results section. ESTIMATED GFR Routine 08/11/2019 Results for 4:00 AM SENIOR CORPORATE ACCOUNTANT this procedure are in the results section. MAGNESIUM LEVEL Routine 08/11/2019 Results for 4:00 AM SENIOR CORPORATE ACCOUNTANT this procedure are in the results section. BASIC METABOLIC PANEL Routine 08/11/2019 Result s for 4:00 AM SENIOR CORPORATE ACCOUNTANT this procedure are in the results section. XR CHEST 1 VW PORTABLE Routine 08/10/2019 Resul ts for 12:07 PM SENIOR CORPORATE ACCOUNTANT this procedure are in the results section. B NATRIURETIC PEPTIDE Routine 08/10/2019 Result s for 6:00 AM SENIOR CORPORATE ACCOUNTANT this procedure are in the results section. HC COMPLETE BLD COUNT W/AUTO Routine 08/10/2019 Results for DIFF 6:00 AM SENIOR CORPORATE ACCOUNTANT this procedure are in the results section. HC COMPLETE BLD COUNT W/AUTO Routine 08/10/2019 Results for DIFF 4:00 AM SENIOR CORPORATE ACCOUNTANT this procedure are in the results section. PARTIAL THROMBOPLASTIN TIME Routine 08/10/2019 Results for (PTT) 4:00 AM SENIOR CORPORATE ACCOUNTANT this procedure are in the results section. MAGNESIUM LEVEL Routine 08/10/2019 Results for 4:00 AM SENIOR CORPORATE ACCOUNTANT this procedure are in the results section. ESTIMATED GFR Routine 08/10/2019 Results for 4:00 AM SENIOR CORPORATE ACCOUNTANT this procedure are in the results section. COMPREHENSIVE METABOLIC PANEL Routine 08/10/2019 Results for 4:00 AM SENIOR CORPORATE ACCOUNTANT this procedure are in the results section. PARTIAL THROMBOPLASTIN TIME Routine 08/09/2019 Results for (PTT) 2:10 PM SENIOR CORPORATE ACCOUNTANT this procedure are in the results section. PARTIAL THROMBOPLASTIN TIME Routine 08/09/2019 Results for (PTT) 8:00 AM SENIOR CORPORATE ACCOUNTANT this procedure are in the results section. ESTIMATED GFR Routine 08/09/2019 Results for 4:00 AM SENIOR CORPORATE ACCOUNTANT this procedure are in the results section. MAGNESIUM LEVEL Routine 08/09/2019 Results for 4:00 AM SENIOR CORPORATE ACCOUNTANT this procedure are in the results section. B NATRIURETIC PEPTIDE Routine 08/09/2019 Result s for 4:00 AM SENIOR CORPORATE ACCOUNTANT this procedure are in the results section. BASIC METABOLIC PANEL Routine 08/09/2019 Result s for 4:00 AM SENIOR CORPORATE ACCOUNTANT this procedure are in the results section. HC COMPLETE BLD COUNT W/AUTO Routine 08/09/2019 Results for DIFF 4:00 AM SENIOR CORPORATE ACCOUNTANT this procedure are in the results section. 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 PARTIAL THROMBOPLASTIN TIME Timed 08/08/2019 Results for (PTT) 10:00 AM SENIOR CORPORATE ACCOUNTANT this procedure are in the results section. ESTIMATED GFR Routine 08/08/2019 Results for 3:00 AM SENIOR CORPORATE ACCOUNTANT this procedure are in the results section. PARTIAL THROMBOPLASTIN TIME Routine 08/08/2019 Results for (PTT) 3:00 AM SENIOR CORPORATE ACCOUNTANT this procedure are in the results section. BASIC METABOLIC PANEL Routine 08/08/2019 Result s for 3:00 AM SENIOR CORPORATE ACCOUNTANT this procedure are in the results section. PARTIAL THROMBOPLASTIN TIME Routine 2019 Results for (PTT) 5:07 PM SENIOR CORPORATE ACCOUNTANT this procedure are in the results section. PARTIAL THROMBOPLASTIN TIME STAT 2019 Results for (PTT) 2:30 PM SENIOR CORPORATE ACCOUNTANT this procedure are in the results section. CT HEAD WO CONTRAST Routine 2019 Results for 12:55 PM SENIOR CORPORATE ACCOUNTANT this procedure are in the results section. ARTERIAL BLOOD GAS Routine 2019 Results f or 11:40 AM SENIOR CORPORATE ACCOUNTANT this procedure are in the results section. ESTIMATED GFR Routine 2019 Results for 4:10 AM SENIOR CORPORATE ACCOUNTANT this procedure are in the results section. PARTIAL THROMBOPLASTIN TIME Routine 2019 Results for (PTT) 4:10 AM SENIOR CORPORATE ACCOUNTANT this procedure are in the results section. PROTHROMBIN TIME WITH INR Routine 2019 Re sults for 4:10 AM SENIOR CORPORATE ACCOUNTANT this procedure are in the results section. MAGNESIUM LEVEL Routine 2019 Results for 4:10 AM SENIOR CORPORATE ACCOUNTANT this procedure are in the results section. HC COMPLETE BLD COUNT W/AUTO Routine 2019 Results for DIFF 4:10 AM SENIOR CORPORATE ACCOUNTANT this procedure are in the results section. B NATRIURETIC PEPTIDE Routine 2019 Result s for 4:10 AM SENIOR CORPORATE ACCOUNTANT this procedure are in the results section. BASIC METABOLIC PANEL Routine 2019 Result s for 4:10 AM SENIOR CORPORATE ACCOUNTANT this procedure are in the results section. PARTIAL THROMBOPLASTIN TIME Routine 08/06/2019 Results for (PTT) 1:15 PM SENIOR CORPORATE ACCOUNTANT this procedure are in the results section. PARTIAL THROMBOPLASTIN TIME Routine 08/06/2019 Results for (PTT) 11:40 AM SENIOR CORPORATE ACCOUNTANT this procedure are in the results section. ESTIMATED GFR Routine 08/06/2019 Results for 4:00 AM SENIOR CORPORATE ACCOUNTANT this procedure are in the results section. PHOSPHORUS LEVEL Routine 08/06/2019 Results for 4:00 AM SENIOR CORPORATE ACCOUNTANT this procedure are in the results section. MAGNESIUM LEVEL Routine 08/06/2019 Results for 4:00 AM SENIOR CORPORATE ACCOUNTANT this procedure are in the results section. BASIC METABOLIC PANEL Routine 08/06/2019 Result s for 4:00 AM SENIOR CORPORATE ACCOUNTANT this procedure are in the results section. PARTIAL THROMBOPLASTIN TIME Routine 08/06/2019 Results for (PTT) 3:55 AM SENIOR CORPORATE ACCOUNTANT this procedure are in the results section. POC GLUCOSE Routine 08/05/2019 Results for 11:46 AM SENIOR CORPORATE ACCOUNTANT this procedure are in the results section. ESTIMATED GFR Routine 08/05/2019 Results for 11:32 AM SENIOR CORPORATE ACCOUNTANT this procedure are in the results section. BASIC METABOLIC PANEL Routine 08/05/2019 Result s for 11:32 AM SENIOR CORPORATE ACCOUNTANT this procedure are in the results section. PARTIAL THROMBOPLASTIN TIME Routine 08/05/2019 Results for (PTT) 8:50 AM SENIOR CORPORATE ACCOUNTANT this procedure are in the results section. POC GLUCOSE Routine 08/05/2019 Results for 7:46 AM SENIOR CORPORATE ACCOUNTANT this procedure are in the results section. PARTIAL THROMBOPLASTIN TIME Routine 08/05/2019 Results for (PTT) 1:50 AM SENIOR CORPORATE ACCOUNTANT this procedure are in the results section. POC GLUCOSE Routine 08/04/2019 Results for 8:37 PM SENIOR CORPORATE ACCOUNTANT this procedure are in the results section. POC GLUCOSE Routine 08/04/2019 Results for 6:34 PM SENIOR CORPORATE ACCOUNTANT this procedure are in the results section. PARTIAL THROMBOPLASTIN TIME STAT 08/04/2019 Results for (PTT) 5:50 PM SENIOR CORPORATE ACCOUNTANT this procedure are in the results section. POC GLUCOSE Routine 08/04/2019 Results for 4:58 PM SENIOR CORPORATE ACCOUNTANT this procedure are in the results section. PARTIAL THROMBOPLASTIN TIME Routine 08/04/2019 Results for (PTT) 3:30 PM SENIOR CORPORATE ACCOUNTANT this procedure are in the results section. POC GLUCOSE Routine 08/04/2019 Results for 2:02 PM SENIOR CORPORATE ACCOUNTANT this procedure are in the results section. POC GLUCOSE Routine 08/04/2019 Results for 8:21 AM SENIOR CORPORATE ACCOUNTANT this procedure are in the results section. PARTIAL THROMBOPLASTIN TIME Timed 08/04/2019 Results for (PTT) 6:45 AM SENIOR CORPORATE ACCOUNTANT this procedure are in the results section. B NATRIURETIC PEPTIDE Routine 08/04/2019 Result s for 6:45 AM SENIOR CORPORATE ACCOUNTANT this procedure are in the results section. HC COMPLETE BLD COUNT W/AUTO Routine 08/04/2019 Results for DIFF 6:45 AM SENIOR CORPORATE ACCOUNTANT this procedure are in the results section. ESTIMATED GFR Routine 08/04/2019 Results for 4:00 AM SENIOR CORPORATE ACCOUNTANT this procedure are in the results section. PHOSPHORUS LEVEL Routine 08/04/2019 Results for 4:00 AM SENIOR CORPORATE ACCOUNTANT this procedure are in the results section. MAGNESIUM LEVEL Routine 08/04/2019 Results for 4:00 AM SENIOR CORPORATE ACCOUNTANT this procedure are in the results section. BASIC METABOLIC PANEL Routine 08/04/2019 Result s for 4:00 AM SENIOR CORPORATE ACCOUNTANT this procedure are in the results section. POC GLUCOSE Routine 08/03/2019 Results for 11:25 PM SENIOR CORPORATE ACCOUNTANT this procedure are in the results section. PARTIAL THROMBOPLASTIN TIME Routine 08/03/2019 Results for (PTT) 10:30 PM SENIOR CORPORATE ACCOUNTANT this procedure are in the results section. POC GLUCOSE Routine 08/03/2019 Results for 5:35 PM SENIOR CORPORATE ACCOUNTANT this procedure are in the results section. PARTIAL THROMBOPLASTIN TIME Timed 08/03/2019 Results for (PTT) 3:30 PM SENIOR CORPORATE ACCOUNTANT this procedure are in the results section. POC GLUCOSE Routine 08/03/2019 Results for 10:57 AM SENIOR CORPORATE ACCOUNTANT this procedure are in the results section. PARTIAL THROMBOPLASTIN TIME STAT 08/03/2019 Results for (PTT) 8:46 AM SENIOR CORPORATE ACCOUNTANT this procedure are in the results section. POC GLUCOSE Routine 08/03/2019 Results for 7:07 AM SENIOR CORPORATE ACCOUNTANT this procedure are in the results section. ARTERIAL BLOOD GAS Routine 08/03/2019 Results f or 5:36 AM SENIOR CORPORATE ACCOUNTANT this procedure are in the results section. XR CHEST 1 VW PORTABLE Routine 08/03/2019 Resul ts for 5:31 AM SENIOR CORPORATE ACCOUNTANT this procedure are in the results section. MANUAL DIFFERENTIAL Routine 08/03/2019 Results for 4:00 AM SENIOR CORPORATE ACCOUNTANT this procedure are in the results section. PARTIAL THROMBOPLASTIN TIME Timed 08/03/2019 Results for (PTT) 4:00 AM SENIOR CORPORATE ACCOUNTANT this procedure are in the results section. ESTIMATED GFR Routine 08/03/2019 Results for 4:00 AM SENIOR CORPORATE ACCOUNTANT this procedure are in the results section. PHOSPHORUS LEVEL Routine 08/03/2019 Results for 4:00 AM SENIOR CORPORATE ACCOUNTANT this procedure are in the results section. MAGNESIUM LEVEL Routine 08/03/2019 Results for 4:00 AM SENIOR CORPORATE ACCOUNTANT this procedure are in the results section. CBC WITH PLATELET AND Routine 08/03/2019 Result s for DIFFERENTIAL 4:00 AM SENIOR CORPORATE ACCOUNTANT this procedure are in the results section. BASIC METABOLIC PANEL Routine 08/03/2019 Result s for 4:00 AM SENIOR CORPORATE ACCOUNTANT this procedure are in the results section. ESTIMATED GFR Routine 08/02/2019 Results for 10:36 PM SENIOR CORPORATE ACCOUNTANT this procedure are in the results section. PARTIAL THROMBOPLASTIN TIME Routine 08/02/2019 Results for (PTT) 10:36 PM SENIOR CORPORATE ACCOUNTANT this procedure are in the results section. MAGNESIUM LEVEL Routine 08/02/2019 Results for 10:36 PM SENIOR CORPORATE ACCOUNTANT this procedure are in the results section. BASIC METABOLIC PANEL Routine 08/02/2019 Result s for 10:36 PM SENIOR CORPORATE ACCOUNTANT this procedure are in the results section. POC GLUCOSE Routine 08/02/2019 Results for 8:58 PM SENIOR CORPORATE ACCOUNTANT this procedure are in the results section. POC GLUCOSE Routine 08/02/2019 Results for 5:10 PM SENIOR CORPORATE ACCOUNTANT this procedure are in the results section. PARTIAL THROMBOPLASTIN TIME STAT 08/02/2019 Results for (PTT) 2:20 PM SENIOR CORPORATE ACCOUNTANT this procedure are in the results section. PROTHROMBIN TIME WITH INR STAT 08/02/2019 Re sults for 2:20 PM SENIOR CORPORATE ACCOUNTANT this procedure are in the results section. POC GLUCOSE Routine 08/02/2019 Results for 1:27 PM SENIOR CORPORATE ACCOUNTANT this procedure are in the results section. US DUPLEX VENOUS LOWER Routine 08/02/2019 Resul ts for EXTREMITY BILATERAL 10:30 AM SENIOR CORPORATE ACCOUNTANT this procedure are in the results section. POC GLUCOSE Routine 08/02/2019 Results for 9:13 AM SENIOR CORPORATE ACCOUNTANT this procedure are in the results section. XR CHEST 1 VW PORTABLE Routine 08/02/2019 Resul ts for 5:50 AM SENIOR CORPORATE ACCOUNTANT this procedure are in the results section. POC GLUCOSE Routine 08/02/2019 Results for 5:11 AM SENIOR CORPORATE ACCOUNTANT this procedure are in the results section. ARTERIAL BLOOD GAS Routine 08/02/2019 Results f or 4:03 AM SENIOR CORPORATE ACCOUNTANT this procedure are in the results section. ESTIMATED GFR Routine 08/02/2019 Results for 3:41 AM SENIOR CORPORATE ACCOUNTANT this procedure are in the results section. PHOSPHORUS LEVEL Routine 08/02/2019 Results for 3:41 AM SENIOR CORPORATE ACCOUNTANT this procedure are in the results section. B NATRIURETIC PEPTIDE Routine 08/02/2019 Result s for 3:41 AM SENIOR CORPORATE ACCOUNTANT this procedure are in the results section. MAGNESIUM LEVEL Routine 08/02/2019 Results for 3:41 AM SENIOR CORPORATE ACCOUNTANT this procedure are in the results section. COMPREHENSIVE METABOLIC PANEL Routine 08/02/2019 Results for 3:41 AM SENIOR CORPORATE ACCOUNTANT this procedure are in the results section. HC COMPLETE BLD COUNT W/AUTO Routine 08/02/2019 Results for DIFF 3:41 AM SENIOR CORPORATE ACCOUNTANT this procedure are in the results section. POC GLUCOSE Routine 08/02/2019 Results for 12:41 AM SENIOR CORPORATE ACCOUNTANT this procedure are in the results section. POC GLUCOSE Routine 08/01/2019 Results for 8:36 PM SENIOR CORPORATE ACCOUNTANT this procedure are in the results section. PHOSPHORUS LEVEL Routine 08/01/2019 Results for 7:50 PM SENIOR CORPORATE ACCOUNTANT this procedure are in the results section. ESTIMATED GFR Routine 08/01/2019 Results for 7:50 PM SENIOR CORPORATE ACCOUNTANT this procedure are in the results section. MAGNESIUM LEVEL Routine 08/01/2019 Results for 7:50 PM SENIOR CORPORATE ACCOUNTANT this procedure are in the results section. BASIC METABOLIC PANEL Routine 08/01/2019 Result s for 7:50 PM SENIOR CORPORATE ACCOUNTANT this procedure are in the results section. POC GLUCOSE Routine 08/01/2019 Results for 4:59 PM SENIOR CORPORATE ACCOUNTANT this procedure are in the results section. POC GLUCOSE Routine 08/01/2019 Results for 1:04 PM SENIOR CORPORATE ACCOUNTANT this procedure are in the results section. POC GLUCOSE Routine 08/01/2019 Results for 9:04 AM SENIOR CORPORATE ACCOUNTANT this procedure are in the results section. POC GLUCOSE Routine 08/01/2019 Results for 4:35 AM SENIOR CORPORATE ACCOUNTANT this procedure are in the results section. XR CHEST 1 VW PORTABLE Routine 08/01/2019 Resul ts for 4:20 AM SENIOR CORPORATE ACCOUNTANT this procedure are in the results section. ARTERIAL BLOOD GAS Routine 08/01/2019 Results f or 3:53 AM SENIOR CORPORATE ACCOUNTANT this procedure are in the results section. ESTIMATED GFR Routine 08/01/2019 Results for 3:43 AM SENIOR CORPORATE ACCOUNTANT this procedure are in the results section. PHOSPHORUS LEVEL Routine 08/01/2019 Results for 3:43 AM SENIOR CORPORATE ACCOUNTANT this procedure are in the results section. MAGNESIUM LEVEL Routine 08/01/2019 Results for 3:43 AM SENIOR CORPORATE ACCOUNTANT this procedure are in the results section. COMPREHENSIVE METABOLIC PANEL Routine 08/01/2019 Results for 3:43 AM SENIOR CORPORATE ACCOUNTANT this procedure are in the results section. HC COMPLETE BLD COUNT W/AUTO Routine 08/01/2019 Results for DIFF 3:43 AM SENIOR CORPORATE ACCOUNTANT this procedure are in the results section. POC GLUCOSE Routine 08/01/2019 Results for 12:54 AM SENIOR CORPORATE ACCOUNTANT this procedure are in the results section. POC GLUCOSE Routine 07/31/2019 Results for 8:46 PM SENIOR CORPORATE ACCOUNTANT this procedure are in the results section. GRAM STAIN Routine 07/31/2019 Results for 8:09 PM SENIOR CORPORATE ACCOUNTANT this procedure are in the results section. SPUTUM CULTURE Routine 07/31/2019 Results for 8:09 PM SENIOR CORPORATE ACCOUNTANT this procedure are in the results section. POC GLUCOSE Routine 07/31/2019 Results for 4:57 PM SENIOR CORPORATE ACCOUNTANT this procedure are in the results section. US THYROID Routine 07/31/2019 Results for 2:19 PM SENIOR CORPORATE ACCOUNTANT this procedure are in the results section. POC GLUCOSE Routine 07/31/2019 Results for 1:04 PM SENIOR CORPORATE ACCOUNTANT this procedure are in the results section. POTASSIUM LEVEL Routine 07/31/2019 Results for 11:35 AM SENIOR CORPORATE ACCOUNTANT this procedure are in the results section. POC GLUCOSE Routine 07/31/2019 Results for 8:46 AM SENIOR CORPORATE ACCOUNTANT this procedure are in the results section. POC GLUCOSE Routine 07/31/2019 Results for 4:58 AM SENIOR CORPORATE ACCOUNTANT this procedure are in the results section. XR CHEST 1 VW PORTABLE Routine 07/31/2019 Resul ts for 4:05 AM SENIOR CORPORATE ACCOUNTANT this procedure are in the results section. MANUAL DIFFERENTIAL Routine 07/31/2019 Results for 4:00 AM SENIOR CORPORATE ACCOUNTANT this procedure are in the results section. ESTIMATED GFR Routine 07/31/2019 Results for 4:00 AM SENIOR CORPORATE ACCOUNTANT this procedure are in the results section. ARTERIAL BLOOD GAS Routine 07/31/2019 Results f or 4:00 AM SENIOR CORPORATE ACCOUNTANT this procedure are in the results section. MAGNESIUM LEVEL Routine 07/31/2019 Results for 4:00 AM SENIOR CORPORATE ACCOUNTANT this procedure are in the results section. COMPREHENSIVE METABOLIC PANEL Routine 07/31/2019 Results for 4:00 AM SENIOR CORPORATE ACCOUNTANT this procedure are in the results section. CBC WITH PLATELET AND Routine 07/31/2019 Result s for DIFFERENTIAL 4:00 AM SENIOR CORPORATE ACCOUNTANT this procedure are in the results section. POC GLUCOSE Routine 07/31/2019 Results for 1:23 AM SENIOR CORPORATE ACCOUNTANT this procedure are in the results section. POC GLUCOSE Routine 07/30/2019 Results for 8:43 PM SENIOR CORPORATE ACCOUNTANT this procedure are in the results section. VENOUS BLOOD GAS STAT 07/30/2019 Results for 8:38 PM SENIOR CORPORATE ACCOUNTANT this procedure are in the results section. POC GLUCOSE Routine 07/30/2019 Results for 6:09 PM SENIOR CORPORATE ACCOUNTANT this procedure are in the results section. POC GLUCOSE Routine 07/30/2019 Results for 5:04 PM SENIOR CORPORATE ACCOUNTANT this procedure are in the results section. POC GLUCOSE Routine 07/30/2019 Results for 1:14 PM SENIOR CORPORATE ACCOUNTANT this procedure are in the results section. LEGIONELLA URINARY ANTIGEN Routine 07/30/2019 R esults for 11:31 AM SENIOR CORPORATE ACCOUNTANT this procedure are in the results section. STREPTOCOCCUS PNEUMONIAE Routine 07/30/2019 Res ults for URINARY ANTIGEN 11:31 AM SENIOR CORPORATE ACCOUNTANT this procedure are in the results section. BLOOD CULTURE, AEROBIC & Routine 07/30/2019 Res ults for ANAEROBIC 10:40 AM SENIOR CORPORATE ACCOUNTANT this procedure are in the results section. BLOOD CULTURE, AEROBIC & Routine 07/30/2019 Res ults for ANAEROBIC 10:30 AM SENIOR CORPORATE ACCOUNTANT this procedure are in the results section. NV INSERT NON-TUNNEL CV CATH Routine 07/30/2019 Acute on chr onic Results for 10:11 AM SENIOR CORPORATE ACCOUNTANT respiratory this failure with procedure are hypercapnia (HCC) in the results section. XR CHEST 1 VW PORTABLE STAT 07/30/2019 Resul ts for 10:11 AM SENIOR CORPORATE ACCOUNTANT this procedure are in the results section. POC GLUCOSE Routine 07/30/2019 Results for 9:03 AM SENIOR CORPORATE ACCOUNTANT this procedure are in the results section. HC COMPLETE BLD COUNT W/AUTO Routine 07/30/2019 Results for DIFF 8:00 AM SENIOR CORPORATE ACCOUNTANT this procedure are in the results section. POC GLUCOSE Routine 07/30/2019 Results for 6:20 AM SENIOR CORPORATE ACCOUNTANT this procedure are in the results section. XR ABDOMEN 1 VW PORTABLE STAT 07/30/2019 Res ults for 6:13 AM SENIOR CORPORATE ACCOUNTANT this procedure are in the results section. XR CHEST 1 VW PORTABLE STAT 07/30/2019 Resul ts for 6:12 AM SENIOR CORPORATE ACCOUNTANT this procedure are in the results section. ARTERIAL BLOOD GAS STAT 07/30/2019 Results f or 6:00 AM SENIOR CORPORATE ACCOUNTANT this procedure are in the results section. PHOSPHORUS LEVEL Routine 07/30/2019 Results for 5:38 AM SENIOR CORPORATE ACCOUNTANT this procedure are in the results section. LACTIC ACID LEVEL Routine 07/30/2019 Results fo r 5:38 AM SENIOR CORPORATE ACCOUNTANT this procedure are in the results section. ECG 12-LEAD Routine 07/30/2019 Results for 5:28 AM SENIOR CORPORATE ACCOUNTANT this procedure are in the results section. ECG 12-LEAD Routine 07/30/2019 Results for 5:01 AM SENIOR CORPORATE ACCOUNTANT this procedure are in the results section. POC BLOOD GAS, ARTERIAL AND Routine 07/30/2019 Results for LYTES 4:35 AM SENIOR CORPORATE ACCOUNTANT this procedure are in the results section. ESTIMATED GFR Routine 07/30/2019 Results for 4:30 AM SENIOR CORPORATE ACCOUNTANT this procedure are in the results section. ALBUMIN LEVEL Routine 07/30/2019 Results for 4:30 AM SENIOR CORPORATE ACCOUNTANT this procedure are in the results section. MAGNESIUM LEVEL Routine 07/30/2019 Results for 4:30 AM SENIOR CORPORATE ACCOUNTANT this procedure are in the results section. PHOSPHORUS LEVEL Routine 07/30/2019 Results for 4:30 AM SENIOR CORPORATE ACCOUNTANT this procedure are in the results section. BASIC METABOLIC PANEL Routine 07/30/2019 Result s for 4:30 AM SENIOR CORPORATE ACCOUNTANT this procedure are in the results section. CBC WITH PLATELET AND Routine 07/30/2019 Result s for DIFFERENTIAL 4:30 AM SENIOR CORPORATE ACCOUNTANT this procedure are in the results section. POC GLUCOSE Routine 07/30/2019 Results for 4:27 AM SENIOR CORPORATE ACCOUNTANT this procedure are in the results section. POC GLUCOSE Routine 07/29/2019 Results for 11:30 PM SENIOR CORPORATE ACCOUNTANT this procedure are in the results section. POC GLUCOSE Routine 07/29/2019 Results for 5:41 PM SENIOR CORPORATE ACCOUNTANT this procedure are in the results section. RESPIRATORY PATHOGEN PANEL Routine 07/29/2019 R esults for 2:58 PM SENIOR CORPORATE ACCOUNTANT this procedure are in the results section. POC GLUCOSE Routine 07/29/2019 Results for 12:22 PM SENIOR CORPORATE ACCOUNTANT this procedure are in the results section. XR CHEST 1 VW PORTABLE Routine 07/29/2019 Resul ts for 12:04 PM SENIOR CORPORATE ACCOUNTANT this procedure are in the results section. POC GLUCOSE Routine 07/29/2019 Results for 8:18 AM SENIOR CORPORATE ACCOUNTANT this procedure are in the results section. ESTIMATED GFR Routine 07/29/2019 Results for 5:00 AM SENIOR CORPORATE ACCOUNTANT this procedure are in the results section. B NATRIURETIC PEPTIDE Routine 07/29/2019 Result s for 5:00 AM SENIOR CORPORATE ACCOUNTANT this procedure are in the results section. HC COMPLETE BLD COUNT W/AUTO Routine 07/29/2019 Results for DIFF 5:00 AM SENIOR CORPORATE ACCOUNTANT this procedure are in the results section. COMPREHENSIVE METABOLIC PANEL Routine 07/29/2019 Results for 5:00 AM SENIOR CORPORATE ACCOUNTANT this procedure are in the results section. POC GLUCOSE Routine 07/28/2019 Results for 10:14 PM SENIOR CORPORATE ACCOUNTANT this procedure are in the results section. POC GLUCOSE Routine 07/28/2019 Results for 5:44 PM SENIOR CORPORATE ACCOUNTANT this procedure are in the results section. POC GLUCOSE Routine 07/28/2019 Results for 12:46 PM SENIOR CORPORATE ACCOUNTANT this procedure are in the results section. POC GLUCOSE Routine 07/28/2019 Results for 9:41 AM SENIOR CORPORATE ACCOUNTANT this procedure are in the results section. SMEAR REVIEW Routine 07/28/2019 Results for 5:00 AM SENIOR CORPORATE ACCOUNTANT this procedure are in the results section. B NATRIURETIC PEPTIDE Routine 07/28/2019 Result s for 5:00 AM SENIOR CORPORATE ACCOUNTANT this procedure are in the results section. HC COMPLETE BLD COUNT W/AUTO Routine 07/28/2019 Results for DIFF 5:00 AM SENIOR CORPORATE ACCOUNTANT this procedure are in the results section. ESTIMATED GFR Routine 07/28/2019 Results for 4:00 AM SENIOR CORPORATE ACCOUNTANT this procedure are in the results section. PHOSPHORUS LEVEL Routine 07/28/2019 Results for 4:00 AM SENIOR CORPORATE ACCOUNTANT this procedure are in the results section. MAGNESIUM LEVEL Routine 07/28/2019 Results for 4:00 AM SENIOR CORPORATE ACCOUNTANT this procedure are in the results section. COMPREHENSIVE METABOLIC PANEL Routine 07/28/2019 Results for 4:00 AM SENIOR CORPORATE ACCOUNTANT this procedure are in the results section. POC GLUCOSE Routine 07/27/2019 Results for 8:54 PM SENIOR CORPORATE ACCOUNTANT this procedure are in the results section. POC GLUCOSE Routine 07/27/2019 Results for 5:33 PM SENIOR CORPORATE ACCOUNTANT this procedure are in the results section. XR CHEST 1 VW PORTABLE Routine 07/27/2019 Resul ts for 1:16 PM SENIOR CORPORATE ACCOUNTANT this procedure are in the results section. POC GLUCOSE Routine 07/27/2019 Results for 1:15 PM SENIOR CORPORATE ACCOUNTANT this procedure are in the results section. RESPIRATORY PATHOGEN PANEL Routine 07/27/2019 R esults for 11:48 AM SENIOR CORPORATE ACCOUNTANT this procedure are in the results section. POC GLUCOSE Routine 07/26/2019 Results for 9:46 PM SENIOR CORPORATE ACCOUNTANT this procedure are in the results section. SPIROMETRY, DIFFUSION Routine 07/26/2019 Centrilobular Resul ts for 1:16 PM SENIOR CORPORATE ACCOUNTANT emphysema (HCC) this procedure are in the results section. POC GLUCOSE Routine 07/26/2019 Results for 12:30 PM SENIOR CORPORATE ACCOUNTANT this procedure are in the results section. POC GLUCOSE Routine 07/26/2019 Results for 8:33 AM SENIOR CORPORATE ACCOUNTANT this procedure are in the results section. HC COMPLETE BLD COUNT W/AUTO Routine 07/26/2019 Results for DIFF 5:20 AM SENIOR CORPORATE ACCOUNTANT this procedure are in the results section. ESTIMATED GFR Routine 07/26/2019 Results for 4:00 AM SENIOR CORPORATE ACCOUNTANT this procedure are in the results section. BASIC METABOLIC PANEL Routine 07/26/2019 Result s for 4:00 AM SENIOR CORPORATE ACCOUNTANT this procedure are in the results section. POC GLUCOSE Routine 07/25/2019 Results for 5:03 PM SENIOR CORPORATE ACCOUNTANT this procedure are in the results section. POC GLUCOSE Routine 07/25/2019 Results for 12:44 PM SENIOR CORPORATE ACCOUNTANT this procedure are in the results section. NM GI BLEEDING STUDY Routine 07/25/2019 Results for 11:34 AM SENIOR CORPORATE ACCOUNTANT this procedure are in the results section. POC GLUCOSE Routine 07/25/2019 Results for 8:58 AM SENIOR CORPORATE ACCOUNTANT this procedure are in the results section. ESTIMATED GFR Routine 07/25/2019 Results for 4:00 AM SENIOR CORPORATE ACCOUNTANT this procedure are in the results section. B NATRIURETIC PEPTIDE Routine 07/25/2019 Result s for 4:00 AM SENIOR CORPORATE ACCOUNTANT this procedure are in the results section. MAGNESIUM LEVEL Routine 07/25/2019 Results for 4:00 AM SENIOR CORPORATE ACCOUNTANT this procedure are in the results section. BASIC METABOLIC PANEL Routine 07/25/2019 Result s for 4:00 AM SENIOR CORPORATE ACCOUNTANT this procedure are in the results section. HC COMPLETE BLD COUNT W/AUTO Routine 07/25/2019 Results for DIFF 4:00 AM SENIOR CORPORATE ACCOUNTANT this procedure are in the results section. POC GLUCOSE Routine 07/24/2019 Results for 9:02 PM SENIOR CORPORATE ACCOUNTANT this procedure are in the results section. POC GLUCOSE Routine 07/24/2019 Results for 4:01 PM SENIOR CORPORATE ACCOUNTANT this procedure are in the results section. POC GLUCOSE Routine 07/24/2019 Results for 12:37 PM SENIOR CORPORATE ACCOUNTANT this procedure are in the results section. POC GLUCOSE Routine 07/24/2019 Results for 9:22 AM SENIOR CORPORATE ACCOUNTANT this procedure are in the results section. ESTIMATED GFR Routine 07/24/2019 Results for 5:30 AM SENIOR CORPORATE ACCOUNTANT this procedure are in the results section. B NATRIURETIC PEPTIDE Routine 07/24/2019 Result s for 5:30 AM SENIOR CORPORATE ACCOUNTANT this procedure are in the results section. MAGNESIUM LEVEL Routine 07/24/2019 Results for 5:30 AM SENIOR CORPORATE ACCOUNTANT this procedure are in the results section. BASIC METABOLIC PANEL Routine 07/24/2019 Result s for 5:30 AM SENIOR CORPORATE ACCOUNTANT this procedure are in the results section. HC COMPLETE BLD COUNT W/AUTO Routine 07/24/2019 Results for DIFF 5:30 AM SENIOR CORPORATE ACCOUNTANT this procedure are in the results section. POC GLUCOSE Routine 07/23/2019 Results for 11:51 PM SENIOR CORPORATE ACCOUNTANT this procedure are in the results section. POC GLUCOSE Routine 07/23/2019 Results for 7:46 PM SENIOR CORPORATE ACCOUNTANT this procedure are in the results section. POC GLUCOSE Routine 07/23/2019 Results for 2:41 PM SENIOR CORPORATE ACCOUNTANT this procedure are in the results section. POC GLUCOSE Routine 07/23/2019 Results for 10:08 AM SENIOR CORPORATE ACCOUNTANT this procedure are in the results section. ECG 12-LEAD Routine 07/23/2019 Results for 9:40 AM SENIOR CORPORATE ACCOUNTANT this procedure are in the results section. ESTIMATED GFR Routine 07/23/2019 Results for 5:00 AM SENIOR CORPORATE ACCOUNTANT this procedure are in the results section. B NATRIURETIC PEPTIDE Routine 07/23/2019 Result s for 5:00 AM SENIOR CORPORATE ACCOUNTANT this procedure are in the results section. BASIC METABOLIC PANEL Routine 07/23/2019 Result s for 5:00 AM SENIOR CORPORATE ACCOUNTANT this procedure are in the results section. HC COMPLETE BLD COUNT W/AUTO Routine 07/23/2019 Results for DIFF 5:00 AM SENIOR CORPORATE ACCOUNTANT this procedure are in the results section. MAGNESIUM LEVEL Routine 07/23/2019 Results for 5:00 AM SENIOR CORPORATE ACCOUNTANT this procedure are in the results section. POC GLUCOSE Routine 07/22/2019 Results for 8:27 PM SENIOR CORPORATE ACCOUNTANT this procedure are in the results section. POC GLUCOSE Routine 07/22/2019 Results for 5:14 PM SENIOR CORPORATE ACCOUNTANT this procedure are in the results section. POC GLUCOSE Routine 07/22/2019 Results for 12:59 PM SENIOR CORPORATE ACCOUNTANT this procedure are in the results section. POC GLUCOSE Routine 07/22/2019 Results for 8:38 AM SENIOR CORPORATE ACCOUNTANT this procedure are in the results section. ESTIMATED GFR Routine 07/22/2019 Results for 4:25 AM SENIOR CORPORATE ACCOUNTANT this procedure are in the results section. COMPREHENSIVE METABOLIC PANEL Routine 07/22/2019 Results for 4:25 AM SENIOR CORPORATE ACCOUNTANT this procedure are in the results section. B NATRIURETIC PEPTIDE Routine 07/22/2019 Result s for 4:25 AM SENIOR CORPORATE ACCOUNTANT this procedure are in the results section. POC GLUCOSE Routine 07/21/2019 Results for 10:52 PM SENIOR CORPORATE ACCOUNTANT this procedure are in the results section. POC GLUCOSE Routine 07/21/2019 Results for 7:21 PM SENIOR CORPORATE ACCOUNTANT this procedure are in the results section. POC GLUCOSE Routine 07/21/2019 Results for 1:15 PM SENIOR CORPORATE ACCOUNTANT this procedure are in the results section. XR CHEST 1 VW PORTABLE Routine 07/21/2019 Resul ts for 10:01 AM SENIOR CORPORATE ACCOUNTANT this procedure are in the results section. POC GLUCOSE Routine 07/21/2019 Results for 8:39 AM SENIOR CORPORATE ACCOUNTANT this procedure are in the results section. B NATRIURETIC PEPTIDE Routine 07/21/2019 Result s for 6:05 AM SENIOR CORPORATE ACCOUNTANT this procedure are in the results section. ESTIMATED GFR Routine 07/21/2019 Results for 4:00 AM SENIOR CORPORATE ACCOUNTANT this procedure are in the results section. MAGNESIUM LEVEL Routine 07/21/2019 Results for 4:00 AM SENIOR CORPORATE ACCOUNTANT this procedure are in the results section. BASIC METABOLIC PANEL Routine 07/21/2019 Result s for 4:00 AM SENIOR CORPORATE ACCOUNTANT this procedure are in the results section. ECG 12-LEAD Routine 07/21/2019 Results for 1:08 AM SENIOR CORPORATE ACCOUNTANT this procedure are in the results section. POC GLUCOSE Routine 07/20/2019 Results for 9:35 PM SENIOR CORPORATE ACCOUNTANT this procedure are in the results section. POC GLUCOSE Routine 07/20/2019 Results for 5:23 PM SENIOR CORPORATE ACCOUNTANT this procedure are in the results section. POC GLUCOSE Routine 07/20/2019 Results for 1:55 PM SENIOR CORPORATE ACCOUNTANT this procedure are in the results section. ESOPHAGOGASTRODUODENOSCOPY 07/20/2019 Hyponatremia (EGD) 12:53 PM SENIOR CORPORATE ACCOUNTANT HC COMPLETE BLD COUNT W/AUTO Routine 07/20/2019 Results for DIFF 10:50 AM SENIOR CORPORATE ACCOUNTANT this procedure are in the results section. POC GLUCOSE Routine 07/20/2019 Results for 8:45 AM SENIOR CORPORATE ACCOUNTANT this procedure are in the results section. SURGICAL PATHOLOGY REQUEST Routine 07/20/2019 R esults for 8:41 AM SENIOR CORPORATE ACCOUNTANT this procedure are in the results section. B NATRIURETIC PEPTIDE Routine 07/20/2019 Result s for 6:00 AM SENIOR CORPORATE ACCOUNTANT this procedure are in the results section. CBC WITH PLATELET AND Routine 07/20/2019 Result s for DIFFERENTIAL 6:00 AM SENIOR CORPORATE ACCOUNTANT this procedure are in the results section. ESTIMATED GFR Routine 07/20/2019 Results for 4:00 AM SENIOR CORPORATE ACCOUNTANT this procedure are in the results section. MAGNESIUM LEVEL Routine 07/20/2019 Results for 4:00 AM SENIOR CORPORATE ACCOUNTANT this procedure are in the results section. BASIC METABOLIC PANEL Routine 07/20/2019 Result s for 4:00 AM SENIOR CORPORATE ACCOUNTANT this procedure are in the results section. POC GLUCOSE Routine 07/19/2019 Results for 11:25 PM SENIOR CORPORATE ACCOUNTANT this procedure are in the results section. POC GLUCOSE Routine 07/19/2019 Results for 5:56 PM SENIOR CORPORATE ACCOUNTANT this procedure are in the results section. POC GLUCOSE Routine 07/19/2019 Results for 2:37 PM SENIOR CORPORATE ACCOUNTANT this procedure are in the results section. POC GLUCOSE Routine 07/19/2019 Results for 9:40 AM SENIOR CORPORATE ACCOUNTANT this procedure are in the results section. ESTIMATED GFR Routine 07/19/2019 Results for 4:30 AM SENIOR CORPORATE ACCOUNTANT this procedure are in the results section. MAGNESIUM LEVEL Routine 07/19/2019 Results for 4:30 AM SENIOR CORPORATE ACCOUNTANT this procedure are in the results section. BASIC METABOLIC PANEL Routine 07/19/2019 Result s for 4:30 AM SENIOR CORPORATE ACCOUNTANT this procedure are in the results section. B NATRIURETIC PEPTIDE Routine 07/19/2019 Result s for 4:30 AM SENIOR CORPORATE ACCOUNTANT this procedure are in the results section. HC COMPLETE BLD COUNT W/AUTO Routine 07/19/2019 Results for DIFF 4:30 AM SENIOR CORPORATE ACCOUNTANT this procedure are in the results section. OCCULT BLOOD, STOOL Routine 07/19/2019 Results for 4:00 AM SENIOR CORPORATE ACCOUNTANT this procedure are in the results section. POC GLUCOSE Routine 07/18/2019 Results for 5:11 PM SENIOR CORPORATE ACCOUNTANT this procedure are in the results section. POC GLUCOSE Routine 07/18/2019 Results for 12:29 PM SENIOR CORPORATE ACCOUNTANT this procedure are in the results section. 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 POC GLUCOSE Routine 07/18/2019 Results for 11:01 AM SENIOR CORPORATE ACCOUNTANT this procedure are in the results section. POC GLUCOSE Routine 07/18/2019 Results for 8:45 AM SENIOR CORPORATE ACCOUNTANT this procedure are in the results section. ESTIMATED GFR Routine 07/18/2019 Results for 4:00 AM SENIOR CORPORATE ACCOUNTANT this procedure are in the results section. B NATRIURETIC PEPTIDE Routine 07/18/2019 Result s for 4:00 AM SENIOR CORPORATE ACCOUNTANT this procedure are in the results section. HC COMPLETE BLD COUNT W/AUTO Routine 07/18/2019 Results for DIFF 4:00 AM SENIOR CORPORATE ACCOUNTANT this procedure are in the results section. COMPREHENSIVE METABOLIC PANEL Routine 07/18/2019 Results for 4:00 AM SENIOR CORPORATE ACCOUNTANT this procedure are in the results section. POC GLUCOSE Routine 07/17/2019 Results for 11:36 PM SENIOR CORPORATE ACCOUNTANT this procedure are in the results section. POC GLUCOSE Routine 07/17/2019 Results for 5:17 PM SENIOR CORPORATE ACCOUNTANT this procedure are in the results section. POC GLUCOSE Routine 07/17/2019 Results for 1:05 PM SENIOR CORPORATE ACCOUNTANT this procedure are in the results section. POC GLUCOSE Routine 07/17/2019 Results for 8:24 AM SENIOR CORPORATE ACCOUNTANT this procedure are in the results section. ESTIMATED GFR Routine 07/17/2019 Results for 3:30 AM SENIOR CORPORATE ACCOUNTANT this procedure are in the results section. COMPREHENSIVE METABOLIC PANEL Routine 07/17/2019 Results for 3:30 AM SENIOR CORPORATE ACCOUNTANT this procedure are in the results section. B NATRIURETIC PEPTIDE Routine 07/17/2019 Result s for 3:30 AM SENIOR CORPORATE ACCOUNTANT this procedure are in the results section. MAGNESIUM LEVEL Routine 07/17/2019 Results for 3:30 AM SENIOR CORPORATE ACCOUNTANT this procedure are in the results section. POC GLUCOSE Routine 07/16/2019 Results for 5:29 PM SENIOR CORPORATE ACCOUNTANT this procedure are in the results section. POC GLUCOSE Routine 07/16/2019 Results for 12:55 PM SENIOR CORPORATE ACCOUNTANT this procedure are in the results section. XR CHEST 1 VW PORTABLE Routine 07/16/2019 Resul ts for 8:55 AM SENIOR CORPORATE ACCOUNTANT this procedure are in the results section. POC GLUCOSE Routine 07/16/2019 Results for 8:37 AM SENIOR CORPORATE ACCOUNTANT this procedure are in the results section. ESTIMATED GFR Routine 07/16/2019 Results for 5:40 AM SENIOR CORPORATE ACCOUNTANT this procedure are in the results section. PARTIAL THROMBOPLASTIN TIME Routine 07/16/2019 Results for (PTT) 5:40 AM SENIOR CORPORATE ACCOUNTANT this procedure are in the results section. PROTHROMBIN TIME WITH INR Routine 07/16/2019 Re sults for 5:40 AM SENIOR CORPORATE ACCOUNTANT this procedure are in the results section. DIGOXIN LEVEL Routine 07/16/2019 Results for 5:40 AM SENIOR CORPORATE ACCOUNTANT this procedure are in the results section. COMPREHENSIVE METABOLIC PANEL Routine 07/16/2019 Results for 5:40 AM SENIOR CORPORATE ACCOUNTANT this procedure are in the results section. B NATRIURETIC PEPTIDE Routine 07/16/2019 Result s for 5:40 AM SENIOR CORPORATE ACCOUNTANT this procedure are in the results section. MAGNESIUM LEVEL Routine 07/16/2019 Results for 5:40 AM SENIOR CORPORATE ACCOUNTANT this procedure are in the results section. HC COMPLETE BLD COUNT W/AUTO Routine 07/16/2019 Results for DIFF 5:40 AM SENIOR CORPORATE ACCOUNTANT this procedure are in the results section. POC GLUCOSE Routine 07/15/2019 Results for 11:29 PM SENIOR CORPORATE ACCOUNTANT this procedure are in the results section. OCCULT BLOOD, STOOL Routine 07/15/2019 Results for 6:40 PM SENIOR CORPORATE ACCOUNTANT this procedure are in the results section. POC GLUCOSE Routine 07/15/2019 Results for 5:30 PM SENIOR CORPORATE ACCOUNTANT this procedure are in the results section. POC GLUCOSE Routine 07/15/2019 Results for 12:49 PM SENIOR CORPORATE ACCOUNTANT this procedure are in the results section. POC GLUCOSE Routine 07/15/2019 Results for 8:47 AM SENIOR CORPORATE ACCOUNTANT this procedure are in the results section. ESTIMATED GFR Routine 07/15/2019 Results for 6:00 AM SENIOR CORPORATE ACCOUNTANT this procedure are in the results section. B NATRIURETIC PEPTIDE Routine 07/15/2019 Result s for 6:00 AM SENIOR CORPORATE ACCOUNTANT this procedure are in the results section. MAGNESIUM LEVEL Routine 07/15/2019 Results for 6:00 AM SENIOR CORPORATE ACCOUNTANT this procedure are in the results section. HC COMPLETE BLD COUNT W/AUTO Routine 07/15/2019 Results for DIFF 6:00 AM SENIOR CORPORATE ACCOUNTANT this procedure are in the results section. BASIC METABOLIC PANEL Routine 07/15/2019 Result s for 6:00 AM SENIOR CORPORATE ACCOUNTANT this procedure are in the results section. POC GLUCOSE Routine 07/14/2019 Results for 10:36 PM SENIOR CORPORATE ACCOUNTANT this procedure are in the results section. POC GLUCOSE Routine 07/14/2019 Results for 6:00 PM SENIOR CORPORATE ACCOUNTANT this procedure are in the results section. POC GLUCOSE Routine 07/14/2019 Results for 12:23 PM SENIOR CORPORATE ACCOUNTANT this procedure are in the results section. VENOUS BLOOD GAS Routine 07/14/2019 Results for 5:30 AM SENIOR CORPORATE ACCOUNTANT this procedure are in the results section. ESTIMATED GFR Routine 07/14/2019 Results for 4:40 AM SENIOR CORPORATE ACCOUNTANT this procedure are in the results section. PHOSPHORUS LEVEL Routine 07/14/2019 Results for 4:40 AM SENIOR CORPORATE ACCOUNTANT this procedure are in the results section. MAGNESIUM LEVEL Routine 07/14/2019 Results for 4:40 AM SENIOR CORPORATE ACCOUNTANT this procedure are in the results section. HC COMPLETE BLD COUNT W/AUTO Routine 07/14/2019 Results for DIFF 4:40 AM SENIOR CORPORATE ACCOUNTANT this procedure are in the results section. BASIC METABOLIC PANEL Routine 07/14/2019 Result s for 4:40 AM SENIOR CORPORATE ACCOUNTANT this procedure are in the results section. POC GLUCOSE Routine 07/13/2019 Results for 7:33 PM SENIOR CORPORATE ACCOUNTANT this procedure are in the results section. POC GLUCOSE Routine 07/13/2019 Results for 5:22 PM SENIOR CORPORATE ACCOUNTANT this procedure are in the results section. GRAM STAIN Routine 07/13/2019 Results for 3:50 PM SENIOR CORPORATE ACCOUNTANT this procedure are in the results section. SPUTUM CULTURE Routine 07/13/2019 Results for 3:50 PM SENIOR CORPORATE ACCOUNTANT this procedure are in the results section. SPIROMETRY PRE AND POST WITH Routine 07/13/2019 Centrilobula r Results for BRONCHILATOR, DIFFUSION, LUNG 2:51 PM SENIOR CORPORATE ACCOUNTANT emphysema ( HCC) this VOLUMES procedure are in the results section. POC GLUCOSE Routine 07/13/2019 Results for 12:05 PM SENIOR CORPORATE ACCOUNTANT this procedure are in the results section. RESPIRATORY PATHOGEN PANEL Routine 07/13/2019 R esults for 11:55 AM SENIOR CORPORATE ACCOUNTANT this procedure are in the results section. ECG 12-LEAD Routine 07/13/2019 Results for 11:43 AM SENIOR CORPORATE ACCOUNTANT this procedure are in the results section. TTE COMPLETE, WO CONTRAST, W Routine 07/13/2019 Results for DOPPLER ([id number]) 11:20 AM SENIOR CORPORATE ACCOUNTANT this procedure are in the results section. CT CHEST WO CONTRAST Routine 07/13/2019 Results for 11:05 AM SENIOR CORPORATE ACCOUNTANT this procedure are in the results section. US CAROTID DUPLEX BILATERAL Routine 07/13/2019 Results for 9:15 AM SENIOR CORPORATE ACCOUNTANT this procedure are in the results section. ARTERIAL BLOOD GAS Routine 07/13/2019 Results f or 6:10 AM SENIOR CORPORATE ACCOUNTANT this procedure are in the results section. ESTIMATED GFR Routine 07/13/2019 Results for 2:30 AM SENIOR CORPORATE ACCOUNTANT this procedure are in the results section. LIPID PANEL Routine 07/13/2019 Results for 2:30 AM SENIOR CORPORATE ACCOUNTANT this procedure are in the results section. LIPID PANEL Routine 07/13/2019 Results for 2:30 AM SENIOR CORPORATE ACCOUNTANT this procedure are in the results section. T4, FREE Routine 07/13/2019 Results for 2:30 AM SENIOR CORPORATE ACCOUNTANT this procedure are in the results section. THYROID STIMULATING HORMONE Routine 07/13/2019 Results for 2:30 AM SENIOR CORPORATE ACCOUNTANT this procedure are in the results section. HEMOGLOBIN A1C Routine 07/13/2019 Results for 2:30 AM SENIOR CORPORATE ACCOUNTANT this procedure are in the results section. MAGNESIUM LEVEL Routine 07/13/2019 Results for 2:30 AM SENIOR CORPORATE ACCOUNTANT this procedure are in the results section. B NATRIURETIC PEPTIDE Routine 07/13/2019 Result s for 2:30 AM SENIOR CORPORATE ACCOUNTANT this procedure are in the results section. BASIC METABOLIC PANEL Routine 07/13/2019 Result s for 2:30 AM SENIOR CORPORATE ACCOUNTANT this procedure are in the results section. HC COMPLETE BLD COUNT W/AUTO Routine 07/13/2019 Results for DIFF 2:30 AM SENIOR CORPORATE ACCOUNTANT this procedure are in the results section. GRAM STAIN Routine 07/13/2019 Results for 12:08 AM SENIOR CORPORATE ACCOUNTANT this procedure are in the results section. URINE CULTURE Routine 07/13/2019 Results for 12:08 AM SENIOR CORPORATE ACCOUNTANT this procedure are in the results section. URINALYSIS SCREEN AND Routine 07/12/2019 Result s for MICROSCOPY, WITH REFLEX TO 11:15 PM SENIOR CORPORATE ACCOUNTANT t his CULTURE procedure are in the results section. CHLORIDE LEVEL, URINE, RANDOM Routine 07/12/2019 Results for 11:15 PM SENIOR CORPORATE ACCOUNTANT this procedure are in the results section. CREATININE LEVEL, URINE, RANDOM Routine 07/12/2019 Results for 11:15 PM SENIOR CORPORATE ACCOUNTANT this procedure are in the results section. MICROALBUMIN, URINE, RANDOM Routine 07/12/2019 Results for 11:15 PM SENIOR CORPORATE ACCOUNTANT this procedure are in the results section. PROTEIN, URINE, RANDOM Routine 07/12/2019 Resul ts for 11:15 PM SENIOR CORPORATE ACCOUNTANT this procedure are in the results section. SODIUM LEVEL, URINE, RANDOM Routine 07/12/2019 Results for 11:15 PM SENIOR CORPORATE ACCOUNTANT this procedure are in the results section. ECG 12-LEAD STAT 07/12/2019 Results for 10:33 PM SENIOR CORPORATE ACCOUNTANT this procedure are in the results section. POC GLUCOSE Routine 07/12/2019 Results for 9:09 PM SENIOR CORPORATE ACCOUNTANT this procedure are in the results section. XR CHEST 1 VW PORTABLE Routine 07/12/2019 Resul ts for 8:06 PM SENIOR CORPORATE ACCOUNTANT this procedure are in the results section. ESTIMATED GFR STAT 07/12/2019 Results for 5:02 PM SENIOR CORPORATE ACCOUNTANT this procedure are in the results section. PARTIAL THROMBOPLASTIN TIME STAT 07/12/2019 Results for (PTT) 5:02 PM SENIOR CORPORATE ACCOUNTANT this procedure are in the results section. PROTHROMBIN TIME WITH INR STAT 07/12/2019 Re sults for 5:02 PM SENIOR CORPORATE ACCOUNTANT this procedure are in the results section. BASIC METABOLIC PANEL STAT 07/12/2019 Result s for 5:02 PM SENIOR CORPORATE ACCOUNTANT this procedure are in the results section. ESTIMATED GFR STAT 05/19/2019 Results for 5:30 PM SENIOR CORPORATE ACCOUNTANT this procedure are in the results section. PARTIAL THROMBOPLASTIN TIME STAT 05/19/2019 Results for (PTT) 5:30 PM SENIOR CORPORATE ACCOUNTANT this procedure are in the results section. PROTHROMBIN TIME WITH INR STAT 05/19/2019 Re sults for 5:30 PM SENIOR CORPORATE ACCOUNTANT this procedure are in the results section. TYPE AND SCREEN Routine 05/19/2019 Results for 5:30 PM SENIOR CORPORATE ACCOUNTANT this procedure are in the results section. B NATRIURETIC PEPTIDE STAT 05/19/2019 Result s for 5:30 PM SENIOR CORPORATE ACCOUNTANT this procedure are in the results section. TROPONIN STAT 05/19/2019 Results for 5:30 PM SENIOR CORPORATE ACCOUNTANT this procedure are in the results section. LACTIC ACID LEVEL, SEPSIS - NOW STAT 05/19/2019 Results for AND REPEAT 2X EVERY 3 HOURS 5:30 PM SENIOR CORPORATE ACCOUNTANT this procedure are in the results section. COMPREHENSIVE METABOLIC PANEL STAT 05/19/2019 Results for 5:30 PM SENIOR CORPORATE ACCOUNTANT this procedure are in the results section. HC COMPLETE BLD COUNT W/AUTO STAT 05/19/2019 Results for DIFF 5:30 PM SENIOR CORPORATE ACCOUNTANT this procedure are in the results section. XR CHEST 1 VW PORTABLE STAT 05/19/2019 Resul ts for 5:15 PM SENIOR CORPORATE ACCOUNTANT this procedure are in the results section. URINALYSIS SCREEN AND STAT 05/19/2019 Result s for MICROSCOPY, WITH REFLEX TO 4:10 PM SENIOR CORPORATE ACCOUNTANT t his CULTURE procedure are in the results section. URINE CULTURE STAT 05/19/2019 Results for 4:10 PM SENIOR CORPORATE ACCOUNTANT this procedure are in the results section. BLOOD CULTURE, AEROBIC & Routine 05/19/2019 Res ults for ANAEROBIC 4:10 PM SENIOR CORPORATE ACCOUNTANT this procedure are in the results section. RESPIRATORY PATHOGEN PANEL Routine 05/19/2019 R esults for 3:30 PM SENIOR CORPORATE ACCOUNTANT this procedure are in the results section. INFLUENZA ANTIGEN TEST, REFLEX Routine 05/19/2019 Results for NEGATIVE TO RPP 3:30 PM SENIOR CORPORATE ACCOUNTANT this procedure are in the results section. ECG 12-LEAD STAT 05/19/2019 Results for 2:32 PM SENIOR CORPORATE ACCOUNTANT this procedure are in the results section. ESTIMATED GFR Routine 04/21/2019 Results for 5:30 AM CDT this procedure are in the results section. CBC HEMOGRAM Routine 04/21/2019 Results for 5:30 AM CDT this procedure are in the results section. BASIC METABOLIC PANEL Routine 04/21/2019 Result s for 5:30 AM CDT this procedure are in the results section. CT CHEST WO CONTRAST Routine 04/20/2019 Results for 11:31 AM CDT this procedure are in the results section. XR CHEST 1 VW PORTABLE Routine 04/20/2019 Resul ts for 6:06 AM CDT this procedure are in the results section. ESTIMATED GFR Routine 04/20/2019 Results for 5:30 AM CDT this procedure are in the results section. CBC HEMOGRAM Routine 04/20/2019 Results for 5:30 AM CDT this procedure are in the results section. BASIC METABOLIC PANEL Routine 04/20/2019 Result s for 5:30 AM CDT this procedure are in the results section. ESTIMATED GFR Routine 04/19/2019 Results for 5:57 AM CDT this procedure are in the results section. BASIC METABOLIC PANEL Routine 04/19/2019 Result s for 5:57 AM CDT this procedure are in the results section. HC COMPLETE BLD COUNT W/AUTO Routine 04/19/2019 Results for DIFF 5:57 AM CDT this procedure are in the results section. XR CHEST 1 VW PORTABLE Routine 04/18/2019 Resul ts for 1:46 PM CDT this procedure are in the results section. ESTIMATED GFR Routine 04/18/2019 Results for 5:30 AM CDT this procedure are in the results section. PHOSPHORUS LEVEL Routine 04/18/2019 Results for 5:30 AM CDT this procedure are in the results section. MAGNESIUM LEVEL Routine 04/18/2019 Results for 5:30 AM CDT this procedure are in the results section. IONIZED CALCIUM Routine 04/18/2019 Results for 5:30 AM CDT this procedure are in the results section. HC COMPLETE BLD COUNT W/AUTO Routine 04/18/2019 Results for DIFF 5:30 AM CDT this procedure are in the results section. BASIC METABOLIC PANEL Routine 04/18/2019 Result s for 5:30 AM CDT this procedure are in the results section. POC GLUCOSE Routine 04/17/2019 Results for 12:04 PM CDT this procedure are in the results section. POC GLUCOSE Routine 04/17/2019 Results for 4:54 AM CDT this procedure are in the results section. ESTIMATED GFR Routine 04/17/2019 Results for 3:35 AM CDT this procedure are in the results section. PHOSPHORUS LEVEL Routine 04/17/2019 Results for 3:35 AM CDT this procedure are in the results section. MAGNESIUM LEVEL Routine 04/17/2019 Results for 3:35 AM CDT this procedure are in the results section. IONIZED CALCIUM Routine 04/17/2019 Results for 3:35 AM CDT this procedure are in the results section. HC COMPLETE BLD COUNT W/AUTO Routine 04/17/2019 Results for DIFF 3:35 AM CDT this procedure are in the results section. BASIC METABOLIC PANEL Routine 04/17/2019 Result s for 3:35 AM CDT this procedure are in the results section. XR CHEST 1 VW PORTABLE Routine 04/17/2019 Resul ts for 2:06 AM CDT this procedure are in the results section. POC GLUCOSE Routine 04/17/2019 Results for 1:17 AM CDT this procedure are in the results section. POC GLUCOSE Routine 04/16/2019 Results for 8:59 PM CDT this procedure are in the results section. POC GLUCOSE Routine 04/16/2019 Results for 5:10 PM CDT this procedure are in the results section. POC GLUCOSE Routine 04/16/2019 Results for 2:12 PM CDT this procedure are in the results section. MAGNESIUM LEVEL Routine 04/16/2019 Results for 12:33 PM CDT this procedure are in the results section. IONIZED CALCIUM, ARTERIAL Routine 04/16/2019 Re sults for 12:33 PM CDT this procedure are in the results section. GLUCOSE LEVEL, SYRINGE Routine 04/16/2019 Resul ts for 12:33 PM CDT this procedure are in the results section. HEMOGLOBIN, SYRINGE Routine 04/16/2019 Results for 12:33 PM CDT this procedure are in the results section. POTASSIUM, SYRINGE Routine 04/16/2019 Results f or 12:33 PM CDT this procedure are in the results section. SODIUM LEVEL, SYRINGE Routine 04/16/2019 Result s for 12:33 PM CDT this procedure are in the results section. ARTERIAL BLOOD GAS, CORRECTED Routine 04/16/2019 Results for 12:33 PM CDT this procedure are in the results section. POC GLUCOSE Routine 04/16/2019 Results for 8:48 AM CDT this procedure are in the results section. SURGICAL PATHOLOGY REQUEST Routine 04/16/2019 R esults for 7:35 AM CDT this procedure are in the results section. ANTI XA, UNFRACTIONATED Routine 04/16/2019 Resu lts for 5:40 AM CDT this procedure are in the results section. PROTHROMBIN TIME WITH INR Routine 04/16/2019 Re sults for 5:30 AM CDT this procedure are in the results section. PARTIAL THROMBOPLASTIN TIME Routine 04/16/2019 Results for (PTT) 5:30 AM CDT this procedure are in the results section. POC GLUCOSE Routine 04/16/2019 Results for 5:07 AM CDT this procedure are in the results section. IONIZED CALCIUM STAT 04/16/2019 Results for 4:15 AM CDT this procedure are in the results section. HC COMPLETE BLD COUNT W/AUTO STAT 04/16/2019 Results for DIFF 4:15 AM CDT this procedure are in the results section. ESTIMATED GFR Routine 04/16/2019 Results for 3:45 AM CDT this procedure are in the results section. PHOSPHORUS LEVEL Routine 04/16/2019 Results for 3:45 AM CDT this procedure are in the results section. MAGNESIUM LEVEL Routine 04/16/2019 Results for 3:45 AM CDT this procedure are in the results section. BASIC METABOLIC PANEL Routine 04/16/2019 Result s for 3:45 AM CDT this procedure are in the results section. XR CHEST 1 VW PORTABLE Routine 04/16/2019 Resul ts for 2:18 AM CDT this procedure are in the results section. TROPONIN Timed 04/16/2019 Results for 12:45 AM CDT this procedure are in the results section. POC GLUCOSE Routine 04/16/2019 Results for 12:39 AM CDT this procedure are in the results section. ANTI XA, UNFRACTIONATED STAT 04/15/2019 Resu lts for 11:19 PM CDT this procedure are in the results section. US DUPLEX ARTERIAL UPPER STAT 04/15/2019 Res ults for EXTREMITY RIGHT 11:10 PM CDT this procedure are in the results section. XR CHEST 1 VW PORTABLE STAT 04/15/2019 Resul ts for 10:53 PM CDT this procedure are in the results section. POC GLUCOSE Routine 04/15/2019 Results for 9:21 PM CDT this procedure are in the results section. TROPONIN Timed 04/15/2019 Results for 8:30 PM CDT this procedure are in the results section. XR CHEST 1 VW PORTABLE STAT 04/15/2019 Resul ts for 4:38 PM CDT this procedure are in the results section. ESTIMATED GFR Routine 04/15/2019 Results for 4:25 PM CDT this procedure are in the results section. TROPONIN Timed 04/15/2019 Results for 4:25 PM CDT this procedure are in the results section. BASIC METABOLIC PANEL Routine 04/15/2019 Result s for 4:25 PM CDT this procedure are in the results section. HC COMPLETE BLD COUNT W/AUTO Routine 04/15/2019 Results for DIFF 4:25 PM CDT this procedure are in the results section. RESPIRATORY PATHOGEN PANEL Routine 04/15/2019 R esults for 4:21 PM CDT this procedure are in the results section. ECG 12-LEAD STAT 04/15/2019 Results for 4:02 PM CDT this procedure are in the results section. POC GLUCOSE Routine 04/15/2019 Results for 3:55 PM CDT this procedure are in the results section. OR FL < 1 HOUR Routine 04/15/2019 Results for 3:30 PM CDT this procedure are in the results section. MAGNESIUM LEVEL Routine 04/15/2019 Results for 2:28 PM CDT this procedure are in the results section. GLUCOSE LEVEL, SYRINGE Routine 04/15/2019 Resul ts for 2:28 PM CDT this procedure are in the results section. IONIZED CALCIUM, ARTERIAL Routine 04/15/2019 Re sults for 2:28 PM CDT this procedure are in the results section. POTASSIUM, SYRINGE Routine 04/15/2019 Results f or 2:28 PM CDT this procedure are in the results section. SODIUM LEVEL, SYRINGE Routine 04/15/2019 Result s for 2:28 PM CDT this procedure are in the results section. HEMOGLOBIN, SYRINGE Routine 04/15/2019 Results for 2:28 PM CDT this procedure are in the results section. ARTERIAL BLOOD GAS, CORRECTED Routine 04/15/2019 Results for 2:28 PM CDT this procedure are in the results section. CENTRAL LINE Routine 04/15/2019 Results for 2:21 PM CDT this procedure are in the results section. ARTERIAL LINE Routine 04/15/2019 Results for 2:21 PM CDT this procedure are in the results section. PREPARE FRESH FROZEN PLASMA Routine 04/15/2019 1:20 PM CDT PREPARE RBC Routine 04/15/2019 1:20 PM CDT TYPE AND SCREEN Routine 04/15/2019 Results for 1:20 PM CDT this procedure are in the results section. POC GLUCOSE Routine 04/15/2019 Results for 12:31 PM CDT this procedure are in the results section. BLOOD CULTURE, AEROBIC & Routine 04/15/2019 Res ults for ANAEROBIC 12:18 PM CDT this procedure are in the results section. POC GLUCOSE Routine 04/15/2019 Results for 11:24 AM CDT this procedure are in the results section. URINALYSIS SCREEN AND Routine 04/15/2019 Result s for MICROSCOPY, WITH REFLEX TO 11:15 AM CDT t his CULTURE procedure are in the results section. URINE CULTURE Routine 04/15/2019 Results for 11:15 AM CDT this procedure are in the results section. GRAM STAIN Routine 04/15/2019 Results for 11:10 AM CDT this procedure are in the results section. RESPIRATORY CULTURE, Routine 04/15/2019 Results for QUANTITATIVE 11:10 AM CDT this procedure are in the results section. XR CHEST 1 VW PORTABLE STAT 04/15/2019 Resul ts for 11:06 AM CDT this procedure are in the results section. ARTERIAL BLOOD GAS STAT 04/15/2019 Results f or 11:05 AM CDT this procedure are in the results section. ESTIMATED GFR Routine 04/15/2019 Results for 11:00 AM CDT this procedure are in the results section. ARTERIAL BLOOD GAS STAT 04/15/2019 Results f or 11:00 AM CDT this procedure are in the results section. T4, FREE Routine 04/15/2019 Results for 11:00 AM CDT this procedure are in the results section. THYROID STIMULATING HORMONE Routine 04/15/2019 Results for 11:00 AM CDT this procedure are in the results section. PHOSPHORUS LEVEL Routine 04/15/2019 Results for 11:00 AM CDT this procedure are in the results section. MAGNESIUM LEVEL Routine 04/15/2019 Results for 11:00 AM CDT this procedure are in the results section. COMPREHENSIVE METABOLIC PANEL Routine 04/15/2019 Results for 11:00 AM CDT this procedure are in the results section. PARTIAL THROMBOPLASTIN TIME Routine 04/15/2019 Results for (PTT) 11:00 AM CDT this procedure are in the results section. PROTHROMBIN TIME WITH INR Routine 04/15/2019 Re sults for 11:00 AM CDT this procedure are in the results section. HC COMPLETE BLD COUNT W/AUTO Routine 04/15/2019 Results for DIFF 11:00 AM CDT this procedure are in the results section. BLOOD CULTURE, AEROBIC & Routine 04/15/2019 Res ults for ANAEROBIC 11:00 AM CDT this procedure are in the results section. LIPID PANEL Routine 03/31/2019 Results for 4:00 AM CDT this procedure are in the results section. T4, FREE Routine 03/30/2019 Results for 4:45 AM CDT this procedure are in the results section. THYROID STIMULATING HORMONE Routine 03/30/2019 Results for 4:45 AM CDT this procedure are in the results section. TROPONIN Timed 03/30/2019 Results for 4:45 AM CDT this procedure are in the results section. TTE COMPLETE, WO CONTRAST, W Routine 03/29/2019 Results for DOPPLER ([id number]) 2:35 PM CDT this procedure are in the results section. CT ANGIOGRAM PE CHEST STAT 03/29/2019 Result s for 1:17 PM CDT this procedure are in the results section. GRAM STAIN Routine 03/29/2019 Results for 12:46 PM CDT this procedure are in the results section. SPUTUM CULTURE Routine 03/29/2019 Results for 12:46 PM CDT this procedure are in the results section. ALPHA-1 ANTITRYPSIN LEVEL Routine 03/29/2019 Re sults for 10:46 AM CDT this procedure are in the results section. TROPONIN Timed 03/29/2019 Results for 10:46 AM CDT this procedure are in the results section. ARTERIAL BLOOD GAS STAT 03/28/2019 Results f or 9:18 PM CDT this procedure are in the results section. PHOSPHORUS LEVEL STAT 03/28/2019 Results for 6:19 PM CDT this procedure are in the results section. ARTERIAL BLOOD GAS STAT 03/28/2019 Results f or 5:38 PM CDT this procedure are in the results section. XR CHEST 1 VW PORTABLE STAT 03/28/2019 Resul ts for 5:30 PM CDT this procedure are in the results section. BLOOD CULTURE, AEROBIC & Routine 03/28/2019 Res ults for ANAEROBIC 5:03 PM CDT this procedure are in the results section. BLOOD CULTURE, AEROBIC & Routine 03/28/2019 Res ults for ANAEROBIC 4:55 PM CDT this procedure are in the results section. PHOSPHORUS LEVEL STAT 03/28/2019 Results for 4:53 PM CDT this procedure are in the results section. MAGNESIUM LEVEL STAT 03/28/2019 Results for 4:53 PM CDT this procedure are in the results section. ESTIMATED GFR STAT 03/28/2019 Results for 4:53 PM CDT this procedure are in the results section. TROPONIN STAT 03/28/2019 Results for 4:53 PM CDT this procedure are in the results section. COMPREHENSIVE METABOLIC PANEL STAT 03/28/2019 Results for 4:53 PM CDT this procedure are in the results section. PARTIAL THROMBOPLASTIN TIME STAT 03/28/2019 Results for (PTT) 4:53 PM CDT this procedure are in the results section. PROTHROMBIN TIME WITH INR STAT 03/28/2019 Re sults for 4:53 PM CDT this procedure are in the results section. HC COMPLETE BLD COUNT W/AUTO STAT 03/28/2019 Results for DIFF 4:53 PM CDT this procedure are in the results section. RESPIRATORY PATHOGEN PANEL Routine 03/28/2019 R esults for 4:53 PM CDT this procedure are in the results section. INFLUENZA ANTIGEN TEST, REFLEX Routine 03/28/2019 Results for NEGATIVE TO RPP 4:53 PM CDT this procedure are in the results section. ECG ED PRELIMINARY Routine 03/28/2019 Results f or INTERPRETATION 4:48 PM CDT this procedure are in the results section. [place] CRITICAL CARE, E/M 30-74 Routine 03/28/2019 Results for MINUTES 4:48 PM CDT this procedure are in the results section. ECG 12-LEAD STAT 03/28/2019 Results for 4:43 PM CDT this procedure are in the results section. after 03/13/2019 Results CBC with platelet and differential (08/31/2019 6:20 AM SENIOR CORPORATE ACCOUNTANT)Only the most recent of54 resultswithin the time period is included. WBC 5.22 4.50 - 11.00 [facility] k/uL [facility] RBC 3.23 (L) 4.20 - 5.50 [facility] m/uL [facility] HGB 9.0 (L) 12.0 - 16.0 [facility] g/dL [facility] HCT 29.5 (L) 37.0 - 47.0 % [facility] MCV 91.3 82.0 - 100.0 [facility] MCH 27.9 27.0 - 34.0 pg [facility] MCHC 30.5 (L) 31.0 - 37.0 [facility] g/dL [facility] RDW - SD 54.4 37.0 - 55.0 fL [facility] MPV 10.2 8.8 - 13.2 fL [facility] Platelet count 299 150 - 400 k/uL [facility] Nucleated RBC 0.00 /100 WBC [facility] Neutrophils 64.1 39.0 - 69.0 % [facility] Lymphocytes 20.5 (L) 25.0 - 45.0 % [facility] Monocytes 11.7 (H) 0.0 - 10.0 % [facility] Eosinophils 2.9 0.0 - 5.0 % [facility] Basophils 0.4 0.0 - 1.0 % [facility] Immature granulocytes 0.4Comment: 0.0 - 1.0 % [facility] "Immature HOSPITAL granulocytes" (promyelocytes , myelocytes, metamyelocytes ) Specimen Blood Performing Organization Address City/[facility] Phone Number [facility] DEPARTMENT OF PATHOLOGY AND [address] [place] [address] [address] B natriuretic peptide (08/31/2019 6:20 AM SENIOR CORPORATE ACCOUNTANT)Only the most recent of34 results within the time period is included. Pathologist Sig nature BNP 234 (H) 0 - 100 pg/mL [facility] Specimen Blood Performing Organization Address [facility] Servicescoma Phone Number [facility] DEPARTMENT OF PATHOLOGY AND [address] [place] [address] [phone] [address] Estimated GFR (08/31/2019 4:00 AM SENIOR CORPORATE ACCOUNTANT)Only the most recent of63 resultswithin the time period is included. Estimated GFR 40 (A) mL/min/1.73 [facility] Comment: m2 HOSPITAL Catergory Units Interpretation G1 >=90 Normal or high G2 60-89 Mildly decreased G3a 45-59 Mildly to moderately decreas ed G3b 30-44 Moderately to severely decre ased G4 15-29 Severely decreased G5 <15 Kidney failure The eGFR was calculated using the Chronic Kidney Disea se Epidemiology Collaboration (CKD-EPI) equation. Interpretation is based on recommendations of the National Kidney Foundation-Kidney Disease Outcomes Star lity Initiative (NKF-KDOQI) published in 2014. Specimen Plasma specimen Performing Organization Address City/[facility] Servicescode Phone Number [facility] DEPARTMENT OF PATHOLOGY AND [address] [place], [place] [phone] [address] [address] Magnesium level (08/31/2019 4:00 AM SENIOR CORPORATE ACCOUNTANT)Only the most recent of48 resultswithin the time period is included. Pathologist Sig nature Magnesium 1.7 1.6 - 2.4 mg/dL [facility] L Specimen Plasma specimen Performing Organization Address City/[facility] Servicescode Phone Number [facility] DEPARTMENT OF PATHOLOGY AND [address] [place] [address] [phone] [address] Basic metabolic panel (08/31/2019 4:00 AM SENIOR CORPORATE ACCOUNTANT)Only the most recent of50 results within the time period is included. Pathologist Sig nature Sodium 136 135 - 148 mEq/L [facility] Potassium 3.5 3.5 - 5.0 mEq/L [facility] Chloride 97 (L) 98 - 112 mEq/L [facility] CO2 25 24 - 31 mEq/L [facility] Anion gap 14@ANIO 7 - 15 mEq/L [facility] BUN 17 8 - 23 mg/dL [facility] Creatinine 1.33 (H) 0.50 - 0.90 mg/dL [facility] Glucose 99 65 - 99 mg/dL [facility] Calcium 9.1 8.8 - 10.2 mg/dL [facility] Specimen Plasma specimen Performing Organization Address [facility] Servicescode Phone Number [facility] DEPARTMENT OF PATHOLOGY AND [address] [place] [phone] XR Chest 1 Vw Portable (08/31/2019 12:34 AM SENIOR CORPORATE ACCOUNTANT)Only the most recent of26 resultswithin the time period is included. Specimen Narrative Performed At EXAMINATION: XR CHEST 1 VW PORTABLE [facility] CLINICAL HISTORY: chf COMPARISON: 08/17/2019 IMPRESSION: Cardiomediastinal silhouette is within n ormal limits. No consolidations or pneumothorax. Trace bilateral pleural effusions. No acute osseous abnormalities. Moderate degenerative change of the thoracic spine. Mild degenerative change of the bilateral shoulders. [facility]-[id number] Procedure Note Hm Interface, Radiology Results Incoming - 08/31/2019 12:45 AM SENIOR CORPORATE ACCOUNTANT EXAMINATION: XR CHEST 1 VW PORTABLE CLINICAL HISTORY: chf COMPARISON: 08/17/2019 IMPRESSION: Cardiomediastinal silhouette is within n ormal limits. No consolidations or pneumothorax. Trace bilateral pleural effusions. No acute osseous abnormalities. Moderate degenerative change of the thoracic spine. Mild degenerative change of the bilateral shoulders. [facility]-[id number] Performing Organization Address City/State/Zipcode Phone Number [facility] [address] [place] [address] MRI Rectal W Wo Contrast (08/30/2019 7:35 PM SENIOR CORPORATE ACCOUNTANT) Specimen Narrative Performed At This result has an attachment that is no t available. EXAMINATION: MRI RECTAL W WO CONTRAST [facility] CLINICAL HISTORY: stage rectal cancer COMPARISON: None. TECHNIQUE: Multiplanar, multisequence MR I of the pelvis with and without contrast material with a rectal cancer protocol. High-resolution T2 images were obtained. IMPRESSION: Tumor location: low. The inferior juan in of the tumor is 3 cm from the anal verge and 0 cm from the top of the anal sphincter complex. Maximal thickness: 1.4 cm Length: 3.3 cm. Morphology: Semi annular, along the left half of the lower rectum. . Muscularis propria: Subtle extension b eyond the muscularis propria up to 2.5 mm along the left posterolateral aspect, series 8 images 8 and 9 (T3b). The tumor extends up to the top of the intersphi ncteric plane, though it does not appear to descend into it. CRM status: The extension beyond the m uscular propria remains at least 3 mm away from the mesorectal fascia, series 8 image 9. Nodes: A tiny 3 mm node in the left me sorectum anteriorly, series 8 image 11, is heterogeneous in signal intensity, though without any other malignant features. A couple other tiny nodes measuring no larger than 3 mm elsewhere within the mesorectum have no suspicious features. . Evidence of extramural vascular invasion: None. Peritoneal reflection: No evidence of involvement. Distal colonic diverticulosis partially seen. Nabothia n cysts in the cervix. Fluid and heterogeneous signal intensity within the endometrium, with measures 6 mm, which is within normal limits, if there is no postmenopausal bleeding; confirm clinically. Tiny subendometrial cysts, dubious clinical significance. Blooming artifacts in the upper right hemipelvis from surgical clips. Visualized bones show no suspicious lesion. SUMMARY: T3bN0 , CRM -, low rectal tumor as detailed above. Fluid and heterogeneous signal within th e endometrium, consideration for hysteroscopy is advised, especially if there is any postmenopausal bleeding. [facility]-[id number] Procedure Note Hm Interface, Radiology Results Incoming - 08/30/2019 8:15 PM SENIOR CORPORATE ACCOUNTANT EXAMINATION: MRI RECTAL W WO CONTRAST CLINICAL HISTORY: stage rectal cancer COMPARISON: None. TECHNIQUE: Multiplanar, multisequence MR I of the pelvis with and without contrast material with a rectal cancer protocol. High-resolution T2 images were obtained. IMPRESSION: Tumor location: low. The inferior colten n of the tumor is 3 cm from the anal verge and 0 cm from the top of the anal sphincter complex. Maximal thickness: 1.4 cm Length: 3.3 cm. Morphology: Semiannu lar, along the left half of the lower rectum. . Muscularis propria: Subtle extension be yond the muscularis propria up to 2.5 mm along the left posterolateral aspect, series 8 images 8 and 9 (T3b). The tumor extends up to the top of the intersphincteric plane, though it does not appear to descend into it. CRM status: The extension beyond the mu scular propria remains at least 3 mm away from the mesorectal fascia, series 8 image 9. Nodes: A tiny 3 mm node in the left mes orectum anteriorly, series 8 image 11, is heterogeneous in signal intensity, though without any other malignant features. A couple other tiny nodes measuring no larger than 3 mm elsewhere within the mesorectum have no suspicious features. . Evidence of extramural vascular invasion : None. Peritoneal reflection: No evidence of i nvolvement. Distal colonic diverticulosis partially seen. Nabothian cysts in the cervix. Fluid and heterogeneous signal intensity within the endometrium, with measures 6 mm, which is within normal limits, if there is no postmenopausal bleeding; confirm clinically. Tiny subendometrial cysts, dubious clinical significance. Blooming artifacts in the upper right hemipelvis from surgi amari clips. Visualized bones show no suspicious lesi on. SUMMARY: T3bN0 , CRM -, low rectal tumor as detai led above. Fluid and heterogeneous signal within th e endometrium, consideration for hysteroscopy is advised, especially if there is any postmenopausal bleeding. [id number] Performing Organization Address City/State/Zipcode Phone Number [facility] [address] [place] [address] CT Abdomen Pelvis Wo Contrast (08/30/2019 8:24 AM SENIOR CORPORATE ACCOUNTANT) Specimen Narrative Performed At EXAMINATION: CT ABDOMEN PELVIS WO CONT RAST [facility] CLINICAL HISTORY: stage rectal cancer TECHNIQUE: Multi-detector computed axial tomography (CAT) of the abdomen and pelvis was performed without IV iodinated contrast. Sagittal and coronal computerized reformatted images were creat ed at a workstation and archived for review. DOSE REDUCTION: CT imaging was performed with iterativ e reconstruction technique and/or automated exposure cont rol to reduce radiation dose. COMPARISON: None. IMPRESSION: 1.Low rectal carcinoma. 2.No evidence of metastatic disease. FINDINGS: ABDOMEN: Right kidney is small and exhibits diffuse cortical at rophy, findings consistent with chronic ischemia. Probable 1.3 cm cyst of the medial inter polar left kidney. Probable 1.3 cm adenoma of the medial li mb of the left adrenal. Liver, spleen, pancreas, and right adren al are unremarkable. Gallbladder is normal and the pancreaticobiliary syste m is nondistended. Semiannular eccentric wall thickening measuring up to 1.6 cm involving the anterior, left lateral, and posterior tai of the lower rectum concordant with the provided history of rectal carcinoma. Surgical clips in the gastric fundus and sigmoid colon . Moderately severe diverticulosis of the sigmoid colon without div erticulitis. Appendix is not visualized. Diffuse and severe atherosclerotic disease of the aort a, mesenteric, and iliofemoral arteries with luminal stenos es. Aorta is nonaneurysmal. No adenopathy, free fluid, or fluid jose ection. PELVIS: No adenopathy, free fluid, fluid collect ion. Specifically, there is no mesorectal or inferior mesen teric lymphadenopathy. Uterus is retroverted, and there is a 1 cm subserosal fibroid of the posterior fundus. Adnexa and urinary bladder are unremarkable. Tiny fat- containing umbilical hernia OTHER: Mild cardiomegaly. Mitral annular and right coronary a rtery calcifications. No pericardial effusion. Bibasilar linear subsegmental atelectasis and scarring . Trace left pleural effusion. No acute or suspicious osseous lesion is identified. M ultilevel discogenic hypertrophic osteophytosis of the thoracolumbar spine. [facility]-[id number] Procedure Note Hm Interface, Radiology Results Incoming - 08/30/2019 9:34 AM SENIOR CORPORATE ACCOUNTANT EXAMINATION: CT ABDOMEN PELVIS WO CONTRAST CLINICAL HISTORY: stage rectal cancer TECHNIQUE: Multi-detector computed axia l tomography (CAT) of the abdomen and pelvis was performed without IV iodinated contrast. Sagittal and coronal computerized reformatted images were created at a workstation and archived for review. DOSE REDUCTION: CT imaging was performed with iterative reconstruction technique and/or automated exposure control to reduce radiation dose. COMPARISON: None. IMPRESSION: 1.Low rectal carcinoma. 2.No evidence of metastatic disease. FINDINGS: ABDOMEN: Right kidney is small and exhibits diffu se cortical atrophy, findings consistent with chronic ischemia. Probable 1.3 cm cyst of the medial inter polar left kidney. Probable 1.3 cm adenoma of the medial li mb of the left adrenal. Liver, spleen, pancreas, and right adren al are unremarkable. Gallbladder is normal and the pancreatic obiliary system is nondistended. Semiannular eccentric wall thickening me asuring up to 1.6 cm involving the anterior, left lateral, and posterior tai of the lower rectum concordant with the provided history of rectal carcinoma. Surgical clips in the gastric fundus and sigmoid colon. Moderately severe diverticulosis of the sigmoid colon without diverticulitis. Appendix is not visualized. Diffuse and severe atherosclerotic disea se of the aorta, mesenteric, and iliofemoral arteries with luminal stenoses. Aorta is nonaneurysmal. No adenopathy, free fluid, or fluid jose ection. PELVIS: No adenopathy, free fluid, fluid collect ion. Specifically, there is no mesorectal or inferior mesenteric lymphadenopathy. Uterus is retroverted, and there is a 1 cm subserosal fibroid of the posterior fundus. Adnexa and urinary bladder are unremarka ble. Tiny fat-containing umbilical hernia OTHER: Mild cardiomegaly. Mitral annular and ri ght coronary artery calcifications. No pericardial effusion. Bibasilar linear subsegmental atelectasi s and scarring. Trace left pleural effusion. No acute or suspicious osseous lesion is identified. Multilevel discogenic hypertrophic osteophytosis of the thoracolumbar spine. [facility]-[id number] Performing Organization Address City/State/Zipcode Phone Number [facility] [address] [place] [address] Hemoglobin & hematocrit (08/26/2019 11:20 PM SENIOR CORPORATE ACCOUNTANT) Pathologist Sig nature HGB 10.0 (L) 12.0 - 16.0 g/dL [facility] AL HCT 31.1 (L) 37.0 - 47.0 % [facility] Specimen Blood Performing Organization Address City/State/Zipcode Phone Number [facility] DEPARTMENT OF PATHOLOGY AND [address] [place] [address] [phone] [address] Sodium level (08/26/2019 3:20 PM SENIOR CORPORATE ACCOUNTANT) Pathologist [facility] Sodium 132 (L) 135 - 148 mEq/L [facility] L Specimen Plasma specimen Performing Organization Address City/[facility] Phone Number [facility] DEPARTMENT OF PATHOLOGY AND [address] [place] [address] [address] Manual differential (08/26/2019 5:40 AM SENIOR CORPORATE ACCOUNTANT)Only the most recent of4 results within the time period is included. Pathologist [facility] Manual differential PERFORMED [facility] Neutrophils 74.0 (H) 39.0 - 69.0 % [facility] Lymphocytes 15.0 (L) 25.0 - 45.0 % [facility] Monocytes 9.0 0.0 - 10.0 % [facility] Eosinophils 2.0 0.0 - 5.0 % [facility] Basophils 0.0 0.0 - 1.0 % [facility] Metamyelocytes 0 % [facility] Promyelocytes 0 % [facility] Platelet slide review Stephen adequate [facility] Anisocytosis Moderate [facility] Polychromasia Moderate [facility] Ovalocytes Moderate [facility] Specimen Performing Organization Address [facility] Phone Number [facility] DEPARTMENT OF PATHOLOGY AND [address] [place] [address] [phone] [address] Partial thromboplastin time, activated (08/26/2019 5:40 AM SENIOR CORPORATE ACCOUNTANT)Only the most recent of31 resultswithin the time period is included. Pathologist [facility] PTT 37.7 (H) 23.0 - 36.0 [facility] Comment: [facility] HOSPITAL PTT therapeutic range for unfractionated heparin is 61.0-112.0 seconds which corresponds to Anti-Xa 0.3-0.7 U/ml. Specimen Blood Performing Organization Address City/[facility] Phone Number [facility] DEPARTMENT OF PATHOLOGY AND [address] [place], [place] [phone] [address] [address] Prothrombin time with INR (08/26/2019 5:40 AM SENIOR CORPORATE ACCOUNTANT)Only the most recent of11 resultswithin the time period is included. Pathologist [facility] Prothrombin time 15.4 (H) 11.5 - 14.5 [facility] INR 1.2 [facility] Comment: EPISCOPAL The International Normalized Ratio (INR) is a [facility] monitoring tool for patients who are stable on oral anticoagulant therapy. An INR of 2.0-3.0 is suggested for deep vein thrombosis/pulmonary embolism. Specimen Blood Performing Organization Address City/[facility] Phone Number [facility] DEPARTMENT OF PATHOLOGY AND [address] [place] [phone] Thyroperoxidase antibody (08/25/2019 5:38 AM SENIOR CORPORATE ACCOUNTANT) [facility] Thyroperoxidase Ab <0.3 0.0 - 9.0 IU/mL [facility] Specimen Serum Performing Organization Address [facility] Phone Number [facility] DEPARTMENT OF PATHOLOGY AND [address] [place], [place] [phone] Carcinoembryonic antigen (CEA) (08/25/2019 5:38 AM SENIOR CORPORATE ACCOUNTANT) [facility] CEA 3.1 0.0 - 3.8 [facility] Comment: ng/mL [facility] Reference range for heavy smokers: 0.0 - 5.5 ng/mL The JOE Genevieve 8000 CEA immunoassay was used. Results obtained with different assay methods or kits should not be used interchangeably and may be differen t. Specimen Serum Performing Organization Address [facility] Phone Number [facility] DEPARTMENT OF PATHOLOGY AND [address] [place] [address] Surgical pathology request (08/24/2019 10:11 AM SENIOR CORPORATE ACCOUNTANT)Only the most recent of5 resultswithin the time period is included. Pathologist [facility] [facility] DEPARTMENT OF PATHOLOGY AND GENOMIC MEDICINE Surgical pathology See link below for [facility] DEPARTMENT O F report PDF Lab Report PATHOLOGY AND GENOMIC MEDICINE Result status This is Supplemental [facility] DEPARTMENT OF Report for PATHOLOGY AND [id number] GENOMIC MEDICINE Specimen Performing Organization Address City/[facility]/Zipcode Phone Number [facility] DEPARTMENT OF PATHOLOGY AND [address] [place] [address] [employer] MEDICINE US Thyroid (08/23/2019 9:30 AM SENIOR CORPORATE ACCOUNTANT)Only the most recent of2 resultswithin the time period is included. Specimen Narrative Performed At EXAMINATION: US THYROID [facility] CLINICAL HISTORY: Thyroid nodule incidental on CT MR US no risk factors, Last exam had some external items that might of interfere with imaging study COMPARISON: 07/31/2019 TECHNIQUE: Transverse and longitudinal sonographic pearl ges of the thyroid gland were obtained. Grayscale and color Doppler image s were also obtained. FINDINGS: THYROID MEASUREMENTS: Right: 5.2 x 1.7 x 1.8 cm. Isthmus: 0.4 cm. Left: 5.1 x 2.0 x 1.5 cm. THYROID PARENCHYMA:Homogenous There is a 6 mm TI-RADS 3 nodule in the right thyroid lobe. There are 2 TI-RADS 3 nodules in the left thyroid lobe, both measu ring approximate 7 mm. IMPRESSION: Small bilateral TI-RADS 3 nodules. Recomme nd 1 year follow-up. [facility]-[id number] ACR TI-RADS 0 points: TR1. Benign. No FNA. 2 points: TR2. Not suspicious. No FNA. 3 points: TR3. Mildly suspicious. FNA if > or = 2.5 cm . Follow if > or = 1.5 cm. 4-6 points: TR4. Moderately suspicious. FNA if > or = 1.5 cm. Follow if > or = 1 cm. 7 or more points: TR5. Highly suspicious. FNA if > or = 1 cm. Follow if > or = 0.5 cm. Follow-up of TR3-TR5 nodules that do not meet biopsy criteria: *TR3: 1,3 and 5 years *TR4: 1,2,3 and 5 years *TR5: 1,2,3,4 and 5 years Any nodule that is stable for 5 years regardless of TI-RADS level is considered benign Any nodule whose TI-RADS level increases should have 1 year followup regardless of initial level DESCRIPTION of CRITERIA: COMPOSITION: *Spongiform (0 pts): Composed predominantly (greater t morales 50%) of small cystic spaces. Do not add further points for other categories *Mixed cystic and solid (1pt): Assign points for predo minant solid component *Solid (2 pts) *Assign 2 points if composition cannot be determined b ecause of calcification ECHOGENICITY: *Anechoic (0 pts): Applies to cystic or almost completely cystic nodules *Hyperechoic/isoechoic (1 pt) / hypoechoic (2pts): Com pared to adjacent parenchyma *Very hypoechoic (3 pts): More hypoechoi c than strap muscles *Assign 1 point if echogenicity cannot b e determined SHAPE: *Ckplbc-upcn-crnc (3pts): Should be assessed on a torres sverse image with measurements parallel to sound beam for height and per pendicular to sound beam for width. This can usually b e assessed by visual inspection. MARGIN: *Lobulated (2pts): Protrusions into uma cent tissue. *Irregular (2pts) : Jagged, spiculated, or sharp angles *Extrathyroidal extension (3 pts): Obvio us invasion equals malignancy *Assign 0 points for smooth or if margin cannot be determined ECHOGENIC FOCI: *Large, comet tail artifacts (0 pts): V-shaped, > 1 mm , in cystic components *Macrocalcifications (1 pts): Cause acou stic shadowing *Peripheral (2 pts): Complete or incompl ete along margin Punctate echogenic foci (3 pts): May have small, comet -tail Procedure Note Interface, Radiology Results Incoming - 08/23/2019 11:35 AM SENIOR CORPORATE ACCOUNTANT EXAMINATION: US THYROID CLINICAL HISTORY: Thyroid nodule incid ental on CT MR US no risk factors, Last exam had some external items that might of interfere with imaging study COMPARISON: 07/31/2019 TECHNIQUE: Transverse and longitudinal s onographic images of the thyroid gland were obtained. Grayscale and color Doppler images were also obtained. FINDINGS: THYROID MEASUREMENTS: Right: 5.2 x 1.7 x 1.8 cm. Isthmus: 0.4 cm. Left: 5.1 x 2.0 x 1.5 cm. THYROID PARENCHYMA:Homogenous There is a 6 mm TI-RADS 3 nodule in the right thyroid lobe. There are 2 TI-RADS 3 nodules in the left thyroid lobe, both measuring approximate 7 mm. IMPRESSION: Small bilateral TI-RADS 3 no dules. Recommend 1 year follow-up. [id number] ACR TI-RADS 0 points: TR1. Benign. No FNA. 2 points: TR2. Not suspicious. No FNA. 3 points: TR3. Mildly suspicious. FNA if > or = 2.5 cm. Follow if > or = 1.5 cm. 4-6 points: TR4. Moderately suspicious. FNA if > or = 1.5 cm. Follow if > or = 1 cm. 7 or more points: TR5. Highly suspicious . FNA if > or = 1 cm. Follow if > or = 0.5 cm. Follow-up of TR3-TR5 nodules that do not meet biopsy criteria: *TR3: 1,3 and 5 years *TR4: 1,2,3 and 5 years *TR5: 1,2,3,4 and 5 years Any nodule that is stable for 5 years regardless of TI-RADS level is considered benign Any nodule whose TI-RADS level increas es should have 1 year followup regardless of initial level DESCRIPTION of CRITERIA: COMPOSITION: *Spongiform (0 pts): Composed predominan tly (greater than 50%) of small cystic spaces. Do not add further points for other categories *Mixed cystic and solid (1pt): Assign po ints for predominant solid component *Solid (2 pts) *Assign 2 points if composition cannot b e determined because of calcification ECHOGENICITY: *Anechoic (0 pts): Applies to cystic or almost completely cystic nodules *Hyperechoic/isoechoic (1 pt) / hypoecho ic (2pts): Compared to adjacent parenchyma *Very hypoechoic (3 pts): More hypoechoi c than strap muscles *Assign 1 point if echogenicity cannot b e determined SHAPE: *Ttynhc-qmbe-rslo (3pts): Should be asse ssed on a transverse image with measurements parallel to sound beam for height and perpendicular to sound beam for width. This can usually be assessed by visual inspection. MARGIN: *Lobulated (2pts): Protrusions into uma cent tissue. *Irregular (2pts) : Jagged, spiculated, or sharp angles *Extrathyroidal extension (3 pts): Obvio us invasion equals malignancy *Assign 0 points for smooth or if margin cannot be determined ECHOGENIC FOCI: *Large, comet tail artifacts (0 pts): V- shaped, > 1 mm, in cystic components *Macrocalcifications (1 pts): Cause acou stic shadowing *Peripheral (2 pts): Complete or incompl ete along margin Punctate echogenic foci (3 pts): May hav e small, comet-tail Performing Organization Address [facility] Phone Number [address] [address] T3 (08/23/2019 4:00 AM SENIOR CORPORATE ACCOUNTANT) Pathologist Sig [facility] T3 88 80 - 200 ng/dL [facility] Specimen Plasma specimen Performing Organization Address [facility] Phone Number [facility] DEPARTMENT OF PATHOLOGY AND [address] [place] [address] Thyroid stimulating hormone (08/23/2019 4:00 AM SENIOR CORPORATE ACCOUNTANT)Only the most recent of4 resultswithin the time period is included. Pathologist Sig [facility] TSH 1.93 0.27 - 4.20 uIU/mL [facility] Specimen Plasma specimen Performing Organization Address [facility] Phone Number [facility] DEPARTMENT OF PATHOLOGY AND [address] [place] [phone] [place] [address] T4, free (08/23/2019 4:00 AM SENIOR CORPORATE ACCOUNTANT)Only the most recent of4 resultswithin the time period is included. Pathologist Sig [facility] T4, free 1.3 0.9 - 1.7 ng/dL [facility] L Specimen Plasma specimen Performing Organization Address [facility] Phone Number [facility] DEPARTMENT OF PATHOLOGY AND [address] [place] [phone] [place] [address] Head Wo Contrast (08/21/2019 11:33 AM SENIOR CORPORATE ACCOUNTANT)Only the most recent of2 results within the time period is included. Specimen Narrative Performed At EXAMINATION: CT HEAD WO CONTRAST HM [facility] CLINICAL HISTORY: Headache acute sev ere worst ANDRADE of life COMPARISON 2019. TECHNIQUE: Noncontrast CT of the brain w4as performed from the skull base to the vertex. Both soft tissue and bone reconstr uction algorithms are interpreted. CT imaging was performed with iterative reconstruction techniques and/or automated exposure control to reduce rad iation dose. FINDINGS: No intracranial hemorrhage, extra-axial collection, or mass-effect is seen. No acute cortical infarct is identified. No hy perdense vessel is seen. Involutional changes of the brain are ag ain noted. No air-fluid level is seen in the visualized portions of the paranasal sinuses. Mastoid air cells are clear. IMPRESSION: No acute intracranial abnormality identi fied. No significant interval change. [id number] Procedure Note Interface, Radiology Results Incoming - 08/21/2019 11:39 AM SENIOR CORPORATE ACCOUNTANT EXAMINATION: CT HEAD WO CONTRAST CLINICAL HISTORY: Headache acute sever e worst ANDRADE of life COMPARISON 2019. TECHNIQUE: Noncontrast CT of the brain w 4as performed from the skull base to the vertex. Both soft tissue and bone reconstruction algorithms are interpreted. CT imaging was performed with iterative reconstruction techniques and/or automated exposure control to reduce radiation dose. FINDINGS: No intracranial hemorrhage, extra-axial collection, or mass-effect is seen. No acute cortical infarct is identified. No hyperdense vessel is seen. Involutional changes of the brain are ag ain noted. No air-fluid level is seen in the visual ized portions of the paranasal sinuses. Mastoid air cells are clear. IMPRESSION: No acute intracranial abnormality identi fied. No significant interval change. [id number] Performing Organization Address City/State/Zipcode Phone Number [facility] [address] [place] [address] ECG 12 lead (08/21/2019 9:38 AM SENIOR CORPORATE ACCOUNTANT)Only the most recent of11 resultswithin the time period is included. Pathologist Sig nature Ventricular rate 64 [facility] Atrial rate 64 [facility] NV interval 178 [facility] QRSD interval 86 [facility] QT interval 448 [facility] QTC interval 462 [facility] P axis 1 11 [facility] QRS axis 1 -6 [facility] T wave axis 17 [facility] EKG impression Normal sinus rhythm-Low volt age QRS-Cannot rule out Anterior infarct (cited on or before 14-AUG-2019)-Abnormal ECG-In automated comparison with ECG of 14-AUG-2019 19:51,-Sinus rhythm has replaced Atrial [facility] MUSE fibrillation-Vent. rate has decreased BY 35 BPM-QT has lengthened-Electronical ly Signed By Coy Monroy MD ([id number]) on 08/21/2019 10:47:09 AM Specimen Narrative Performed At This result has an attachment that is no t available. Performing Organization Address City/State/Zipcode Phone Number [facility] MUSE [address] [place] [address] Electrophysiology procedure (08/21/2019 9:33 AM SENIOR CORPORATE ACCOUNTANT) Specimen Procedure Note Kris Parrish MD - 08/30/2019 4:48 P M SENIOR CORPORATE ACCOUNTANT POC glucose (08/21/2019 4:45 AM SENIOR CORPORATE ACCOUNTANT)Only the most recent of114 resultswithin the time period is included. Pathologist Sig nature POC glucose 103 (H) 65 - 99 mg/dL [facility] Comment: HOSPITAL [employer] Engineer Name: Cinthya Gardner Device ID: [id number] Chartable: No Action Needed Specimen Performing Organization Address City/[facility] Phone Number [facility] DEPARTMENT OF PATHOLOGY AND [address] [place] [address] [phone] [address] Phosphorus level (08/21/2019 4:00 AM SENIOR CORPORATE ACCOUNTANT)Only the most recent of18 results within the time period is included. [facility] nature Phosphorus 3.5 2.4 - 4.5 mg/dL [facility] L Specimen Plasma specimen Performing Organization Address City/[facility]/Zipcode Phone Number [facility] DEPARTMENT OF PATHOLOGY AND [address] [place] [address] [phone] [address] Prepare RBC, 2 Units (08/20/2019 9:35 AM SENIOR CORPORATE ACCOUNTANT)Only the most recent of2 results within the time period is included. Product name Red Blood Cells [facility] -1, Leukored [facility] Unit number [id number] [facility] Product code [id number] [facility] Dispense status Transfused [facility] Blood expiration date [facility] Blood type code 6200 [facility] Blood type A POSITIVE [facility] Compatibility Compatible [facility] Product name Red Blood Cells ALEX -1, Leukored [facility] Unit number [id number] [facility] Product code [id number] [facility] Dispense status Transfused [facility] Blood expiration date [facility] Blood type code 6200 [facility] Blood type A POSITIVE [facility] Compatibility Compatible [facility] Specimen Blood Performing Organization Address [facility] Phone Number [facility] DEPARTMENT OF PATHOLOGY AND [address] [place] [address] [phone] [address] Type and screen (08/20/2019 9:35 AM SENIOR CORPORATE ACCOUNTANT)Only the most recent of4 resultswithin the time period is included. Pathologist Sig nature ABO grouping A [facility] Rh type POS [facility] Antibody screen (gel) NEG [facility] Specimen Blood Performing Organization Address [facility] Phone Number [facility] DEPARTMENT OF PATHOLOGY AND [address] [place] [address] [phone] [address] Anti Xa, unfractionated (08/20/2019 5:49 AM SENIOR CORPORATE ACCOUNTANT)Only the most recent of11 resultswithin the time period is included. Anti Xa, 0.39Comment: 0.30 - 0.70 [facility] unfractionated Therapeutic Range: U/mL EPISCOPAL 0.30 - 0.70 U/mL [facility] Specimen Blood Performing Organization Address [facility] Phone Number [facility] DEPARTMENT OF PATHOLOGY AND [address] [place] [phone] [facility] [address] [address] CBC hemogram (08/20/2019 5:49 AM SENIOR CORPORATE ACCOUNTANT)Only the most recent of3 resultswithin the time period is included. Pathologist Sig nature WBC 5.10 4.50 - 11.00 k/uL [facility] RBC 2.46 (L) 4.20 - 5.50 m/uL [facility] HGB 7.2 (L) 12.0 - 16.0 g/dL [facility] HCT 23.0 (L) 37.0 - 47.0 % [facility] MCV 93.5 82.0 - 100.0 fL [facility] MCH 29.3 27.0 - 34.0 pg [facility] MCHC 31.3 31.0 - 37.0 g/dL [facility] RDW - SD 55.8 (H) 37.0 - 55.0 fL [facility] MPV 10.7 8.8 - 13.2 fL [facility] Platelet count 193 150 - 400 k/uL [facility] Nucleated RBC 0.00 /100 WBC [facility] Specimen Blood Performing Organization Address City/[facility] Phone Number [facility] DEPARTMENT OF PATHOLOGY AND [address] [place] [address] [place] [phone] Total iron binding capacity (08/17/2019 4:24 AM SENIOR CORPORATE ACCOUNTANT) Pathologist Sig nature Iron level 27 (L) 37 - 145 ug/dL [facility] Iron binding capacity 257 200 - 400 ug/dL [facility] % Saturation 10.5 (L) 15.0 - 38.0 % [facility] Specimen Plasma specimen Performing Organization Address [facility] Phone Number [facility] DEPARTMENT OF PATHOLOGY AND [address] [place] [address] [address] Ferritin level (08/17/2019 4:24 AM SENIOR CORPORATE ACCOUNTANT) Pathologist Sig nature Ferritin level 78 13 - 150 ng/mL [facility] Specimen Plasma specimen Performing Organization Address [facility] Phone Number [facility] DEPARTMENT OF PATHOLOGY AND [address] [place] [address] [phone] [address] Lactic acid level, SEPSIS - Now and repeat 2x every 3 hours (08/15/2019 4:00 AM SENIOR CORPORATE ACCOUNTANT)Only the most recent of3 resultswithin the time period is included. Pathologist Sig nature Lactic acid 0.9 0.5 - 2.2 mmol/L [facility] AL Specimen Plasma specimen Performing Organization Address City/[facility] Phone Number [facility] DEPARTMENT OF PATHOLOGY AND [address] [place] [address] [phone] [address] Hepatic function panel (08/15/2019 4:00 AM SENIOR CORPORATE ACCOUNTANT) Albumin 2.8 (L) 3.5 - 5.0 g/dL [facility] Total bilirubin 0.4 0.0 - 1.2 [facility] mg/dL [facility] Bilirubin direct <0.2 0.0 - 0.3 [facility] mg/dL [facility] Alkaline phosphatase 39 35 - 104 U/L [facility] Protein 6.0 (L) 6.3 - 8.3 g/dL [facility] Comment: HOSPITAL Fwimkdf0119.6-7.0 g/dL 1 mluy4717.4-7.6 g/dL 7 months-3wuny077.1-7.3 g/dL 1-2 abtrl008.6-7.5 g/dL >3 umget523.0-8.0 g/dL 18-3472364.3-8.3 g/dL ALT 9 5 - 50 U/L [facility] AST 10 10 - 35 U/L [facility] Specimen Plasma specimen Performing Organization Address City/[facility] Phone Number [facility] DEPARTMENT OF PATHOLOGY AND [address] [place] [address] [phone] [address] Arterial blood gas (08/14/2019 11:46 PM SENIOR CORPORATE ACCOUNTANT)Only the most recent of13 results within the time period is included. Pathologist Sig nature pH, arterial 7.41 7.35 - 7.45 [facility] pCO2, arterial 40 35 - 45 mmHg [facility] pO2, arterial 105 (H) 80 - 90 mmHg [facility] Bicarbonate, 25.0 21.0 - 28.0 [facility] mmol/L [facility]ITAL Base excess, 1 -2 - 2 mEq/L [facility] O2 saturation, 98 95 - 100 % [facility] Specimen Blood Performing Organization Address City/State/Zipcode Phone Number [facility] DEPARTMENT OF PATHOLOGY AND [address] [place] [address] [phone] [address] Respiratory pathogen panel (08/14/2019 11:45 PM SENIOR CORPORATE ACCOUNTANT)Only the most recent of7 resultswithin the time period is included. [facility] Respiratory Negative for all pathogens tested: [place] pathogen panel Negative for Adenovirus EPISCOPAL Negative for Coronavirus HKU1 HOSPITAL Negative for Coronavirus NL63 Negative for Coronavirus 229E Negative for Coronavirus OC43 Negative for Human Metapneumovirus Negative for Rhinovirus/Enterovirus Negative for Influenza A Negative for Influenza A/H1 Negative for Influenza A/H3 Negative for Influenza A/H1-2009 Negative for Influenza B Negative for Parainfluenza Virus 1 Negative for Parainfluenza Virus 2 Negative for Parainfluenza Virus 3 Negative for Parainfluenza Virus 4 Negative for Respiratory Syncytial Virus Negative for Bordetella pertussis Negative for Chlamydophila pneumoniae Negative for Mycoplasma pneumoniae This real-time PCR assay detects the presence of nucle ic acids (RNA or DNA) for the respiratory pathogens liste d. A result of "Not-detected" does not exclude the possib ility of the presence of one or more pathogens at concentrat ions less than the detectable limits of the assay. Comment: Specimen Information Specimen Source: Nares Specimen Site: Not specified Specimen Nares - Not specified Performing Organization Address [facility] Servicescode Phone Number [facility] DEPARTMENT OF PATHOLOGY AND [address] [place] [phone] Blood culture, aerobic & anaerobic (08/14/2019 11:45 PM SENIOR CORPORATE ACCOUNTANT)Only the most recent of9 resultswithin the time period is included. [facility] Blood culture No growth after 5 days of incubation. MARITZA MORILLO isolate Comment: HOSPITAL Specimen Information Specimen Source: Blood Specimen Site: Peripheral Wrist Right Specimen Blood Performing Organization Address City/[facility] Servicescode Phone Number [facility] DEPARTMENT OF PATHOLOGY AND [address] [place] [address] [place] [phone] Troponin (08/14/2019 8:05 PM SENIOR CORPORATE ACCOUNTANT)Only the most recent of8 resultswithin the time period is included. [facility] Troponin 0.251 (H) 0.000 - 0.040 ABI MORILLO Comment: ng/mL HOSPITAL In patients suspected of having a myocardial infarctio n, along with all other appropriate clinical measures and actions includ ing ECG and other diagnostics as appropriate, measure Ultra TnI at 0 hrs and at 3 hrs. Myocardial infarction VERY LIKELY The 0 hr TnI level is > 0.10 ng/mL Myocardial infarction LIKELY The 0 hr TnI level is > 0.04 ng/mL and 3 hr level is i ncreased or decreased by at least 0.020 ng/mL Myocardial infarction VERY UNLIKELY Both the 0 hr and 3 hr TnI levels <= 0.04 ng/mL(within normal limits) OR 0 hr is > 0.04 ng/mL and 3 hr is increased OR decreased by less than 0.020 ng/mL Specimen Plasma specimen Performing Organization Address City/[facility]/Zipcode Phone Number [facility] DEPARTMENT OF PATHOLOGY AND [address] [place] [phone] Lactic acid level (08/14/2019 7:54 PM SENIOR CORPORATE ACCOUNTANT)Only the most recent of2 results within the time period is included. Pathologist Sig nature Lactic acid 0.9 0.5 - 2.2 mmol/L [facility] Specimen Plasma specimen Performing Organization Address City/[facility]/Zipcode Phone Number [facility] DEPARTMENT OF PATHOLOGY AND [address] [place] [phone] Cv invasive peripheral vascular procedure (08/14/2019 4:43 PM SENIOR CORPORATE ACCOUNTANT)Only the most recent of2 resultswithin the time period is included. Specimen Narrative Performed At This [facility] has an attachment that is no t available. SURGEON: DILLAN Byrd MD TANK SHOP SUPERVISOR: Dr. Miladis Koroma. TITLE OF OPERATION: 1. Right common to internal carotid artery stent. 2. Intracranial runoff injection x4. 3. Right femoral angiogram. PREOPERATIVE DIAGNOSES: 1. Asymptomatic high-grade carotid artery occlusive disease. 2. Status post right carotid endarterectomy. 3. Status post left hemispheric cerebrovascular acci dent. POSTOPERATIVE DIAGNOSES: 1. Asymptomatic high-grade carotid artery occlusive disease. 2. Status post right carotid endarterectomy. 3. Status post left hemispheric cerebrovascular acci dent. ANESTHESIA: Conscious sedation with Versed and fentanyl. ESTIMATED BLOOD LOSS: 20 mL COMPLICATIONS: None. OPERATIVE COURSE: After informed consent was obtained from the patient a nd with appropriate time-out procedure taken, coupled with the patient tiffani pickens evaluated by stroke neurology prior to the procedure, she was brought to [facility] cardiac catheterization laboratory and placed on the table. Her head was sec ured in a foam cradle. The right femoral area was then cleaned and prepared in us ual fashion. The appropriate anatomic landmarks were identified. She then received the first doses of Versed and fentanyl and these were supplement ed throughout the case. She was continuously monitored by myself and the circu latin nurse including end-tidal CO2, oxygenation, blood pressure, heart rate , and respiration. She tolerated the anesthetic portion well. The right fem oral area was infused with 1% Xylocaine without epinephrine as stated and the art isabel entered without difficulty using a standard 18-gauge AMC needle. A s hort 5-Bolivian arterial sheath was then placed for access. Utilizing a 5-Ryan nch H1 catheter and a 0.035 Wholey exchange wire, the right distal common carotid artery was successfully cannulated. Angiograms were taken in the AP and 60-d egree ANN projections while intracranial angiograms were taken in the AP 10-degree cranial angulation and 90-degree ANN angulation. Once accomplished, the H1 catheter was removed. Appropriate measurements were taken outside of the ope rating theater and we sized the desired standard a 9 x 7 x 30 mm. The H1 c atheter as stated was removed as was the short 5-Bolivian sheath and a 6-Frenc h shuttle sheath then inserted to the distal right common carotid artery. Positioning was confirmed. The patient received Angiomax for antithrombotic thera py with subsequent ACT greater than 230 seconds prior to wire passage. At [facility], a NAV6 filter was deployed distal to the stenosis in the distal inte rnal carotid artery. The flow remained JORGITO-3. The lesion was very carefully measured and noted to be approximately 85% to 90% of stenosed at the area immed iately distal to the previous endarterectomy site. The vessel was then st ented with a 9 x 7 x 30 mm self-deploying Xact stent and postdilated with a 6.5 x 15 mm noncompliant balloon x2. The patient did not have any hypotension or bradycardia with the balloon procedure, but did have severe coughing reacti on x2. This was self-limiting. Following this, post-procedural angio grams were taken in orthogonal views confirming proper stent placement. Intracranial angiogram showed no distal embolization or cut off sign. The f ilter was then successfully retrieved and the sheath withdrawn to the right common femoral artery where an angiogram was performed to assess arteriotomy placemen t. While the placement was proper, the patient had an aberrant circumflex art isabel, which prohibited vascular closure. Thus, the shuttle sheath was remov ed and a short 7-Bolivian sheath placed. The sheath will then be removed jaye souza when ACT is less than 170 seconds. Neurologically, she tolerated the proce dure well and had an NIHSS of 0 at the end of the procedure. She was transporte d out of the salvage laborer to reverse isolation room due to her positive influenza A state. She will be observed until the sheath is removed, after which she will be transported back to [place] [address] for observation. As noted, she di d not require any pressor therapy during the procedure. She was, however, pret reated with atropine prior to deployment of the stent. Performing Organization Address [facility] Servicescode Phone Number [facility] [address] [place] [address] Activated clotting time (08/14/2019 4:19 PM SENIOR CORPORATE ACCOUNTANT)Only the most recent of2 resultswithin the time period is included. Activated clotting 351 (H) 96 - 152 sec [facility] Comment: HOSPITAL Carbon Capture Power Plant Engineer Name: Tanner Martínez Device ID: [id number] Specimen Performing Organization Address [facility]/Zipcode Phone Number [facility] DEPARTMENT OF PATHOLOGY AND [address] [place], [place] [address] GENOMIC [address] [address] Transfuse RBC (08/13/2019 6:54 PM SENIOR CORPORATE ACCOUNTANT)Gram stain (08/12/2019 2:00 PM SENIOR CORPORATE ACCOUNTANT)Only the most recent of6 resultswithin the time period is included. Gram stain isolate Occasional WBC's [facility] No organisms seen HOSPITAL Comment: Specimen Information Specimen Source: Sputum Specimen Site: Expectorated Specimen Sputum - Expectorated Performing Organization Address City/[facility]/Zipcode Phone Number [facility] DEPARTMENT OF PATHOLOGY AND [address] [place], [place] [address] GENOMIC MEDICINE [facility] [address] [place] [address] ECG Pre/Post Op (in AM) (08/11/2019 11:28 AM SENIOR CORPORATE ACCOUNTANT) Pathologist Sig nature Ventricular rate 76 [facility] MUSE Atrial rate 394 [facility] MUSE QRSD interval 86 [facility] M[facility] QT interval 384 [facility] QTC interval 432 [facility] QRS axis 1 7 [facility] M[facility] T wave axis 9 [facility] M[facility] EKG impression Atrial [facility] MUSE fibrillation-Nonspecifi c ST abnormality-Abnormal ECG-In automated comparison with ECG of 30-JUL-2019 05:28,-Atrial fibrillation has replaced Sinus rhythm- Specimen Narrative Performed At This result has an attachment that is no t available. Performing Organization Address City/[facility] Phone Number [facility] MUSE [address] [place] [address] senior cytogenetics laboratory director procedure (08/11/2019 11:06 AM SENIOR CORPORATE ACCOUNTANT) Specimen Narrative Performed At [facility] Attending: Dr. Kris Parrish Interventional Fellow: Alvarez Gusman MD EQUIPMENT/ANTICOAGULATION: Right Common Femoral Artery 7F Sheath AL0.75 Guide Catheter Hi-Torque Floppy XS coronary wire Anticoagulation: Angiomax bolus and Infusion with AC T >250 sec prior to procedure PROCEDURAL DETAILS: Due to potential for conduction issues during interven tion, 5F sheath was placed with placement of a temporary pac er wire which ultimately was removed at the end of the case after int ervention. The RCA was engaged with the AL0.75 Guide Catheter ( initial attempts with ART1, ART2, and AL1 guide catheters) and a Hi-Torque Floppy XS coronary wire was advanced into the distal PL branch. The lesio n in the distal RCA was pre-dilated with a 3 x 12 mm semi-co mpliant balloon at 10 edna and stented with a 3.0 x 15 mm Resolute Cipriano SUE at 16 edna . Final angiography revealed no evidence of dissection or perforation; the re was JORGITO 3 flow and 0% residual stenosis. HEMOSTASIS: Manual Pressure ADDITIONAL POST-PROCEDURE MEDICATIONS: PLAN: 1. ASA load in the salvage laborer. 2. Clopidogrel 75mg daily . 3. Cardiac medical therapy and aggressiv e risk factor modification. Cardiac rehabilitation. 4. Transferred in stable condition Procedure Note Kris Parrish MD - 08/30/2019 4:48 P M SENIOR CORPORATE ACCOUNTANT Attending: Dr. Kris Parrish Interventional Fellow: Alvarez Gusman MD EQUIPMENT/ANTICOAGULATION: Right Common Femoral Artery 7F Sheath AL0.75 Guide Catheter Hi-Torque Floppy XS coronary wire Anticoagulation: Angiomax bolus and Inf usion with ACT >250 sec prior to procedure PROCEDURAL DETAILS: Due to potential for conduction issues d uring intervention, 5F sheath was placed with placement of a temporary pac er wire which ultimately was removed at the end of the case after int ervention. The RCA was engaged with the AL0.75 Torsten de Catheter (initial attempts with ART1, ART2, and AL1 guide catheters) and a Hi-Torque Floppy XS coronary wire was advanced into the distal PL bra nch. The lesion in the distal RCA was pre-dilated with a 3 x 12 mm semi-co mpliant balloon at 10 edna and stented with a 3.0 x 15 mm Resolute Cipriano SUE at 16 edna. Final angiography revealed no evidence of dissection or pe rforation; there was JORGITO 3 flow and 0% residual stenosis. HEMOSTASIS: Manual Pressure ADDITIONAL POST-PROCEDURE MEDICATIONS: PLAN: 1. ASA load in the salvage laborer. 2. Clopidogrel 75mg daily . 3. Cardiac medical therapy and aggressiv e risk factor modification. Cardiac rehabilitation. 4. Transferred in stable condition Performing Organization Address City/State/Zipcode Phone Number [facility] [address] [place] [address], Comprehensive metabolic panel (08/10/2019 4:00 AM SENIOR CORPORATE ACCOUNTANT)Only the most recent of13 resultswithin the time period is included. [facility] Sodium 136 135 - 148 [facility] mEq/L [facility] Potassium 3.9 3.5 - 5.0 [facility] mEq/L [facility] Chloride 99 98 - 112 mEq/L [facility] CO2 26 24 - 31 mEq/L [facility] Anion gap 11@ANIO 7 - 15 mEq/L [facility] BUN 23 8 - 23 mg/dL [facility] Creatinine 1.37 (H) 0.50 - 0.90 [facility] mg/dL [facility] Glucose 97 65 - 99 mg/dL [facility] Calcium 9.2 8.8 - 10.2 [facility] mg/dL [facility] Protein 5.5 (L) 6.3 - 8.3 g/dL [facility] Comment: HOSPITAL Atgypbl6252.6-7.0 g/dL 1 ymab3150.4-7.6 g/dL 7 months-4mnrc593.1-7.3 g/dL 1-2 lruud671.6-7.5 g/dL >3 ivzec879.0-8.0 g/dL 18-0395368.3-8.3 g/dL Albumin 3.1 (L) 3.5 - 5.0 g/dL [facility] A/G ratio 1.3 0.7 - 3.8 [facility] Alkaline phosphatase 34 (L) 35 - 104 U/L [facility] AST 10 10 - 35 U/L [facility] ALT 12 5 - 50 U/L [facility] Total bilirubin 0.3 0.0 - 1.2 [facility] mg/dL [facility] Specimen Plasma specimen Performing Organization Address City/State/Zipcode Phone Number [facility] DEPARTMENT OF PATHOLOGY AND [address] [place], [place] [address] GENOM[address] [address] [place] NEED PHYS SKILL,DX OR RX (08/08/2019 10:12 AM SENIOR CORPORATE ACCOUNTANT) Narrative Performed At Kirill Peoples 08/08/2019 10:14 AM Midline Date/Time: 08/08/2019 10:12 AM Performed by: Sybil Young Authorized by: Shailesh Hutchinson MD Consent: Consent obtained: Verbal Consent given by: Patient Risks discussed: arterial puncture, incorrect place ment, nerve damage, bleeding, infection, superficial thrombu s and deep vein thrombus Jewell protocol: Procedure explained and questions ans wered to patient or proxy's satisfaction: yes Relevant documents present and verifi ed: yes Test results available and properly l abeled: yes Imaging studies available: yes Required blood products, implants, de vices, and special equipment available: yes Site/side marked: yes Immediately prior to procedure, a brady silva out was called: yes Patient identity confirmed: Verball y with patient, arm band and hospital-assigned identification number Pre-procedure details: Hand hygiene: Hand hygiene performed prior to insertion Sterile barrier technique: All elemen ts of maximal sterile technique followed Skin preparation: 2% chlorhexidine Skin preparation agent: Skin preparation agent comp letely dried prior to procedure Anesthesia (see MAR for exact dosages): Anesthesia method: Local infiltrati on Local anesthetic: Lidocaine 1% w/o epi Route of administration: Subcutaneo us Line Placement Details: Patient position: Flat Vessel Size (mm): 3.0. 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 Location: Left basilic Site selection rationale: LIMB ALERT HX OF RIGHT ARM VASCULAR SURGERY Device Type: Non-valved Catheter size: 5 Fr Catheter to vein ratio: 57% Line Characteristics: Catheter Brand: [employer] MIDLINE Internal Catheter Length (cm): 12 Total Catheter Length (cm): 12 Catheter Lot Number: [id number] Catheter Expiration Date: 01/01/2021 Procedure Details: Landmarks identified: yes Ultrasound guidance: yes Sterile ultrasound techniques: Sterile gel and ster ile probe covers were used Number of attempts: 1 Number of PICC kits used during proce dure: 1 Purpose of procedure: Midline Place ment Patency/Placement: Flushes without difficulty, flushed with 10 mL normal saline, positive blood return and injection cap placed PICC placed utlizing ultrasound-guided Modified Val all Technique: Yes Dressing/Securement: Antimicrobial dressing applied, transparent semipermeable dressing, catheter securem ent device and dressing dry and intact Blood Loss Amount: Less than 20 mL Post-Procedure Details: Post-procedure: Dressing applied Patient tolerance of procedure: Panfilo erated well, no immediate complications Us duplex venous lower extremity (08/02/2019 10:30 AM SENIOR CORPORATE ACCOUNTANT) Specimen Narrative Performed At [facility] Vascular U ltrasound Laboratory Lower Extr emity Venous Report [id number] [address] Pat.Name: SUKI KOROMA Pat.ID: [id number]Date: 08/02/2019 Refer.MD: KRIS PARRISH MD Exam Time: 9:49:00 AM Study Type:L E Venous Age: 2 1950,68Y Sex: FEMALE Sonogrphr: Ann Baldwin RVT Pat. Stat.:[facility] Room: [address] Tape V ol: [place], CPT - 4: [address] Echo Poornima nt ID:[id number] Order ID: [id number] Reason for Study:Bilateral leg swelling per ordering physician. History of acute on chronic CHF, COPD< r espiratory failure, morbid obesity, hypertension, hyperlipidemia, C AD, A-Fib on Xarelto. Procedures: Colorflow, Grayscale/2D, Pul sed wave Doppler Race: C SUMMARY: * Normal Reflux Criteria: < 0.5 second s DUPLEX SCAN OBSERVATIONS Deep Veins Superficial Veins Right Left Right Left EIV GSV (prox) Normal Normal CFV Normal Normal (above knee) Femoral Normal Normal GSV (dist) Normal Normal Profunda Normal Normal (below knee) Popliteal Normal Normal PT (prox) Normal Normal SSV Normal Nor mal PT (dist) Normal Normal Peroneal Normal Normal Gastrocs Normal Normal RIGHT: There is normal compressibility with no evidence of echogenic material noted within the lumen of the v isualized veins. Colorflow and Doppler signals are pulsatile. LEFT: There is normal compressibili ty with no evidence of echogenic material noted within the lumen of the v isualized veins. Colorflow and Doppler signals are pulsatile. PRELIMINARY FINDINGS 1. No evidence of venous thrombosis of t he visualized veins. 2. Colorflow and Doppler signals are pul satile, bilaterally. PHYSICIAN INTERPRETATION Venous examination of the both lower ext remities demonstrated no evidence of venous thrombosis in the vis ualized veins. Normal compressibility and augmentation of all veins visualized. FINDINGS: Signed 08/03/2019 08:39 AM Mina Miller MD, RPVI Procedure Note Interface, Radiology Results In - 2019 8:39 AM [facility] Vascular Ultrasound Laboratory Lower Extremity Veno us Report [id number] [address] Pat.Name: SUKI KOROMA Pat.I D: [id number] .Date: 08/02/2019 Refer .MD: KRIS PARRISH MD Exam Time: 9:49:00 AM Study Type:LE Venous Age: 2 1950,68Y Sex: FEMALE Sonogrphr: Ann Baldwin RVT Pat. Stat.:Inpatient Room: [address] Vol: [place], CPT - 4: [address] Echo Event ID:[id number] Order ID: [id number] Reason for Study:Bilateral leg swelling per ordering physician. History of acute on chronic CHF, COPD< r espiratory failure, morbid obesity, hypertension, hyperlipidemia, C AD, A-Fib on Xarelto. Procedures: Colorflow, Grayscale/2D, Pul sed wave Doppler Race: C SUMMARY: * Normal Reflux Criteria: < 0.5 seconds DUPLEX SCAN OBSERVATIONS Deep Veins Superficial Veins Right Left Right Left EIV GSV (prox) Normal Normal CFV Normal Normal (above knee) Femoral Normal Normal GSV (dist) Normal Normal Profunda Normal Normal (below knee) Popliteal Normal Normal PT (prox) Normal Normal SSV Normal Norm al PT (dist) Normal Normal Peroneal Normal Normal Gastrocs Normal Normal RIGHT: There is normal compressibility with no evidence of echogenic material noted within the lumen of the v isualized veins. Colorflow and Doppler signals are pulsatile. LEFT: There is normal compressibility with no evidence of echogenic material noted within the lumen of the v isualized veins. Colorflow and Doppler signals are pulsatile. PRELIMINARY FINDINGS 1. No evidence of venous thrombosis of t he visualized veins. 2. Colorflow and Doppler signals are pul satile, bilaterally. PHYSICIAN INTERPRETATION Venous examination of the both lower ext remities demonstrated no evidence of venous thrombosis in the vis ualized veins. Normal compressibility and augmentation of all veins visualized. FINDINGS: Signed 08/03/2019 08:39 AM Mina Miller MD, RPVI Performing Organization Address [facility] Phone [facility] [address] [place] [address] Sputum culture (07/31/2019 8:09 PM SENIOR CORPORATE ACCOUNTANT)Only the most recent of3 resultswithin the time period is included. Sputum culture No growth after 2 days. [facility] Comment: HOSPITAL Specimen Information Specimen Source: Sputum Specimen Site: Expectorated Specimen Sputum - Expectorated Performing Organization Address [facility]code Phone Number [facility] DEPARTMENT OF PATHOLOGY AND [address] [place] [address] [phone] [address] Potassium level (07/31/2019 11:35 AM SENIOR CORPORATE ACCOUNTANT) Pathologist Sig [facility] Potassium 3.8 3.5 - 5.0 mEq/L [facility] L Specimen Plasma specimen Performing Organization Address [facility] Services[facility] Phone Number [facility] DEPARTMENT OF PATHOLOGY AND [address] [place] [address] [phone] [address] Venous blood gas (07/30/2019 8:38 PM SENIOR CORPORATE ACCOUNTANT)Only the most recent of2 resultswithin the time period is included. Pathologist Sig nature pH, venous 7.35 7.32 - 7.42 [facility] pCO2, venous 46 45 - 51 mmHg [facility] pO2, venous 46 (H) 25 - 40 mmHg [facility] Base excess, venous -1 -2 - 2 meq/L [facility] O2 saturation, 83 (H) 40 - 70 % [facility] venous [facility] Bicarbonate, venous 24.3 21.0 - 28.0 [facility] mmol/L HOSPITAL Specimen Blood Performing Organization Address City/[facility]/Zipcode Phone Number [facility] DEPARTMENT OF PATHOLOGY AND [address] [place] [address] [phone] [address] Streptococcus pneumoniae urinary antigen (07/30/2019 11:31 AM SENIOR CORPORATE ACCOUNTANT) Strep pneumo Negative for Streptococcus pneumoniae antigen. [facility] urinary Ag Comment: HOSPITAL Specimen Information Specimen Source: Urine Specimen Site: [place] Specimen Urine - [place] Performing Organization Address [facility] Phone Number [facility] DEPARTMENT OF PATHOLOGY AND [address] [place] [address] [place] [address] Legionella urinary antigen (07/30/2019 11:31 AM SENIOR CORPORATE ACCOUNTANT) Legionella urinary Negative for Legionella serogroup 1 antigen. [facility] antigen Comment: HOSPITAL Specimen Information Specimen Source: Urine Specimen Site: [place] Specimen Urine - [place] Performing Organization Address City/[facility] Phone Number [facility] DEPARTMENT OF PATHOLOGY AND [address] [place] [address] [place] [phone] Central Line Insertion (07/30/2019 10:11 AM SENIOR CORPORATE ACCOUNTANT) Narrative Performed At Lopez Eagle MD 07/30 10:13 AM Central Line Insertion Performed by: Lopez Eagle MD Authorized by: Lopez Eagle MD Consent: Consent obtained: Verbal Consent given by: Guardian Risks discussed: Arterial puncture, bleeding, infection, incorrect placement, nerve damage and pneumothorax Alternatives discussed: Alternative treatment Jewell protocol: Procedure explained and questions ans wered to patient or proxy's satisfaction: yes Relevant documents present and verifi ed: yes Test results available and properly l abeled: yes Imaging studies available: yes Required blood products, implants, de vices, and special equipment available: no Site/side marked: yes Immediately prior to procedure, a brady silva out was called: yes Patient identity confirmed: Wesley barfield and hospital-assigned identification number Pre-procedure details: Hand hygiene: Hand hygiene performed prior to insertion Sterile barrier technique: All elemen ts of maximal sterile technique followed Skin preparation: 2% chlorhexidine Skin preparation agent: Skin preparation agent comp letely dried prior to procedure Anesthesia (see MAR for exact dosages): Anesthesia method: Local infiltrati on Local anesthetic: Lidocaine 1% w/o epi Procedure details: Catheter type: Triple lumen Catheter size: 7 Fr Catheter length (cm): 16 Catheter site: internal jugular vein Catheter Site Laterality: Left Patient position: Trendelenburg Landmarks identified: no Ultrasound guidance: yes Sterile ultrasound techniques: Sterile gel and ster ile probe covers were used Number of attempts: 1 Successful placement: yes Post-procedure details: Post-procedure: Dressing applied an d line sutured Assessment: Blood return through all ports, free fluid flow, placement verified by x-ray and no pneumothorax on x-ray Patient tolerance of procedure: Panfilo erated well, no immediate complications XR Abdomen 1 Vw Portable (07/30/2019 6:13 AM SENIOR CORPORATE ACCOUNTANT) Specimen Narrative Performed At XR ABDOMEN 1 VW PORTABLE [facility] CLINICAL INDICATION: NGT placement COMPARISON: None. IMPRESSION: Nasogastric tube courses through the expected gastroes ophageal junction, tip extending quite laterally to the left abdomen in t he region the gastric body. Bowel gas pattern is nonspecific. There are scattered atherosclerotic calcifications. Severe spondylosis of the lumbar spine is prese nt. *[facility]-[id number] Procedure Note Hm Interface, Radiology Results Incoming - 07/30/2019 6:22 AM SENIOR CORPORATE ACCOUNTANT XR ABDOMEN 1 VW PORTABLE CLINICAL INDICATION: NGT placement COMPARISON: None. IMPRESSION: Nasogastric tube courses through the exp ected gastroesophageal junction, tip extending quite laterally to the left abdomen in the region the gastric body. Bowel gas pattern is nonspecific. There are scattered atherosclerotic calcifications. Severe spondylosis of the lumbar spine is prese nt. *[facility]-[id number] Performing Organization Address City/State/Zipcode Phone Number [facility] [address] [place] [address] POC blood gas, arterial and lytes (07/30/2019 4:35 AM SENIOR CORPORATE ACCOUNTANT) pH, arterial, POC 7.13 (LL) 7.35 - 7.45 [facility] pCO2, arterial, POC 80 (HH) 35 - 45 mm Hg [facility] pO2, arterial, POC 50 (LL) 80 - 90 mm Hg [facility] Base excess, -4 (L) -2 - 2 mmol/L [facility] arterial, POC [facility] Bicarbonate, 26.9 21.0 - 28.0 [facility] arterial, POC mmol/L HOSPITAL CO2 calculated, 29 24 - 31 [facility] arterial, POC mmol/L [facility] O2 saturation, 71 (L) 95 - 100 % [facility] arterial, POC Comment: HOSPITAL [employer] Power Plant Engineer Name: Aashish Canales Device ID: [id number] POC sodium 135 135 - 148 [facility] mmol/L [facility] POC potassium 3.6 3.5 - 5.0 [facility] mmol/L [facility] POC hematocrit 34 (L) 37 - 47 % [facility] POC glucose 168 (H) 65 - 99 mg/dL [facility] Ionized calcium, 1.39 (H) 1.11 - 1.32 [facility] arterial, POC mmol/L HOSPITAL Specimen Performing Organization Address City/[facility] Servicescoma Phone Number [facility] DEPARTMENT OF PATHOLOGY AND [address] [place] [address] [phone] [address] Albumin level (07/30/2019 4:30 AM SENIOR CORPORATE ACCOUNTANT) Pathologist Sig [facility] Albumin 3.9 3.5 - 5.0 g/dL [facility] Specimen Plasma specimen Performing Organization Address City/[facility] Services[facility] Phone Number [facility] DEPARTMENT OF PATHOLOGY AND [address] [place] [address] [phone] [address] Smear review (07/28/2019 5:00 AM SENIOR CORPORATE ACCOUNTANT) Pathologist Sig [facility] Platelet slide review Stephen adequate [facility] Anisocytosis Moderate [facility] Polychromasia Moderate [facility] Ovalocytes Moderate [facility] Enlarged platelets Moderate (A) [facility] Giant platelets Occasional [facility] Specimen Performing Organization Address [facility] Phone Number [facility] DEPARTMENT OF PATHOLOGY AND [address] [place] [address] [phone] [address] Spirometry, diffusion (07/26/2019 1:16 PM SENIOR CORPORATE ACCOUNTANT) Pathologist Sig nature FEV1 Pre 1.09 1.31 - 2.31 L [facility] FEV1/FVC % Pre 65.59 66.14 - 85.73 % [facility] FVC Pre 1.67 1.82 - 3.00 L [facility] PEF Pre 3.54 3.45 - 6.36 L/s [facility] FEF 25-75% Pre 0.53 0.57 - 2.67 L/s [facility] DLCO Pre 10.17 11.97 - 24.97 [facility] ml/(min*mmHg) DL/VA Pre 3.35 3.20 - 5.83 [facility] ml/(min*mmHg*L) VA SB Pre 3.04 3.14 - 5.34 L [facility] DLCOc Pre 13.09 11.97 - 24.97 [facility] ml/(min*mmHg) KCOc SB Pre 4.30 3.20 - 5.83 [facility] ml/(min*mmHg*L) Hb Pre 7.90 g(Hb)/dL [facility] FEV1 Predicted 1.81 [facility] FEV1 LLN 1.31 [facility] FEV1 % Pre of Predicted 60.4 % [facility] FVC Predicted 2.41 [facility] FVC LLN 1.82 [facility] FVC % Pre of Predicted 69.3 % [facility] FEV1/FVC % Predicted 76 [facility] FEV1/FVC % LLN 66 [facility] FEV1/FVC % Pre of 86.4 % [facility] Predicted FEF 25-75% Predicted 1.62 [facility] FEF 25-75% LLN 0.57 [facility] FEF 25-75% % Pre of 32.5 % [facility] Predicted PEF Predicted 4.91 [facility] PEF LLN 3.45 [facility] PEF % Pre of Predicted 72.0 % [facility] DLCO Predicted 18.47 [facility] DLCO LLN 11.97 [facility] DLCO % Pre of Predicted 55.1 % [facility] DLCOc Predicted 18.47 [facility] DLCOc LLN 11.97 [facility] DLCOc % Pre of Predicted 70.9 % [facility] DL/VA Predicted 4.52 [facility] DL/VA LLN 3.20 [facility] DL/VA % Pre of Predicted 74.0 % [facility] KCOc SB Predicted 4.52 [facility] KCOc SB LLN 3.20 [facility] KCOc SB % Pre of 95.3 % [facility] Predicted VA SB Predicted 4.24 [facility] VA SB LLN 3.14 [facility] VA SB % Pre of Predicted 71.7 % [facility] Specimen Narrative Performed At This result has an attachment that is no t available. Performing Organization Address City/State/Zipcode Phone Number [facility] [address] [place] [address] NM GI Bleeding Study (07/25/2019 11:34 AM SENIOR CORPORATE ACCOUNTANT) Specimen Narrative Performed At PROCEDURE: NM GI BLEEDING STUDY [facility] INDICATION: GI bleed. TECHNIQUE: The patient's own red blood cells were la beled with 25mCi of Tc-99m pertechnetate. The cells were reinjected i nto the patient and dynamic planar images of the abdomen were acquired for 1 hour. FINDINGS: No abnormal tracer accumulat ion with subsequent migration. IMPRESSION: 1. No scintigraphic evidence of active lower GI blee ding during the study. [facility]-[id number] Procedure Note Interface, Radiology Results Incoming - 07/25/2019 11:59 AM SENIOR CORPORATE ACCOUNTANT PROCEDURE: NM GI BLEEDING STUDY INDICATION: GI bleed. TECHNIQUE: The patient's own red blood cells were labeled with 25mCi of Tc-99m pertechnetate. The cells were reinjected into the patient and dynamic planar images of the abdomen were acquired for 1 hour. FINDINGS: No abnormal tracer accumulati on with subsequent migration. IMPRESSION: 1. No scintigraphic evidence of active lower GI bleeding during the study. [facility]-[id number] Performing Organization Address City/[facility]/Zipcode Phone Number [facility] [address] [place] [address] Occult blood, stool (07/19/2019 4:00 AM SENIOR CORPORATE ACCOUNTANT)Only the most recent of2 results within the time period is included. Occult blood, Positive for Occult blood (A) [facility] THODIST stool Comment: HOSPITAL Specimen Information Specimen Source: Stool Specimen Site: Nonpreserved Specimen Stool - Nonpreserved Performing Organization Address City/State/Zipcode Phone Number [facility] DEPARTMENT OF PATHOLOGY AND [address] [place], [place] [address] GENOMIC MEDICINE [facility] [address] [place] [address] senior cytogenetics laboratory director procedure (07/18/2019 12:01 PM SENIOR CORPORATE ACCOUNTANT) Specimen Narrative Performed At This result has an attachment that is no t available. selective cor ,lhc ,lva, selective bilateralcarotid arteriograms SYNGO findings coronary: rca mild 30-35 5 mid vessel narrowing, dist al rac at bifurcation pda/daniel 80 % stenosis,; cfx trunk patent; lad mid vessel 50-55 5 And sequential 60-70 % stenosis lvef 60 %,lvedp 16-18 mmhg carotid arteriograms bilateral ; s/p right CEA proximal RAQUEL,; stenosis distal to CE A- 80-85 % ; left carotid : LICA 50-55 % rec; staged Carotid stent[ marisa Juarez interventio nalist for carotid stenosis; pci planned rca bifurcational stenosis =/- lad mid vessel assessment regarding anemia-iron deficiency , gi sx s neccesitating GI consul/clearance before proceed with stenting and need for dapt 6 months underlying hx hypercapneic respiratiory insufficiency neccessitating intubation past. Virk /sp=ob - concern ischemic compone nt to virk /spob. New onset r atrial fibrillation necessitation additional c learance for dapt and /or anticoagulation Performing Organization Address [facility] Phone Number [facility] [address] [place] [address], Digoxin level (07/16/2019 5:40 AM SENIOR CORPORATE ACCOUNTANT) Digoxin 0.7 (L) 0.8 - 2.0 ng/mL [facility] Comment: HOSPITAL For valid Digoxin results, at least 6 hours should staci pse between time of last dose and collection of blood. Otherwise, result may be false high. Therapeutic Range: 0.8 - 2.0 ng/mL Specimen Plasma specimen Performing Organization Address [facility] Phone Number [facility] DEPARTMENT OF PATHOLOGY AND [address] [place] [phone] GENOMIC MEDICINE [address] [address] Spirometry pre & post w/ bronchodilator, diffusion, lung volumes (07/13/2019 2:51 PM SENIOR CORPORATE ACCOUNTANT) Narrative Performed At Caren Ferguson RRT 07/13/2019 2:5 7 PM [facility] Pulmonary Function Testing not completed due to pt being on Droplet Isolation. Performing Organization Address City/[facility] Phone Number [facility] [address] [place] [address] Echocardiogram complete w contrast and 3D if needed (07/13/2019 11:20 AM SENIOR CORPORATE ACCOUNTANT) Specimen Narrative Performed At [facility] Echo cardiography Report [id number] [facility], [address] [address] Pat.Name: SUKI KOROMA Pat.ID: [id number] .Date: 07/13/2019 Refer.MD: SHAILESH HUTCHINSON MD Exam Time: 9:24:00 AM Study Type:R outine Echo Height: 59in Weight: 180lb BSA: 1.76 m2 Ag e: 1950,68Y Sex: FEMALE BP: 135/59 HR: 59 bpm Sonogr phr: Rin Pimentel [facility] Pat. Stat.:Inpatient Room: [facility] Study Status:Final Echo Event ID:[id number] Order ID: [id number] Reason for Study:HF - Re-eval of known H F (systolic or diastolic) to guide therapy Procedures: 2D Echo, Colorflow Doppler Race: C SUMMARY: LV size is normal. LV EF is normal. Kathe mated EF is 65-69% RV size is normal. RV systolic function is normal. Mild to moderate aortic valve stenosis. Mild calcific mitral stenosis. Estimated PA systolic pressure is 30 mmH g, assuming a mean RAP of 5 mmHg. FINDINGS: LV: LV size is normal. Concentr ic left ventricular remodeling. LV EF is normal. Overall wall motion is normal. Estimated EF is 65-69% RV: RV size is normal. RV systo lic function is normal. LA: LA volume is severely enlar ged. RA: RA size is normal. AO: Aortic root diameter is nor mal. MERLIN: Trace anterior pericardial e ffusion. AV: Aortic valve not well seen. Mild aortic regurgitation. Mild to moderate aortic valv e stenosis. MV: Mild to moderate thickening and calcification of mitral leaflets. Moderate mitral annular amari cification. Thickened and/or calcified chordae. Calcified p apillary muscle. Mild mitral regurgitation. M ild calcific mitral stenosis. PV: Pulmonic valve not well see n. TV: No structural TV abnormalit ies noted. Mild tricuspid regurgitation Rouse: LV relaxation is impaired. L V filling pressure is elevated. Other: Estimated PA systolic pressu re is 30 mmHg, assuming a mean RAP of 5 mmHg. MEASUREMENTS: 2D Parasternal Long [place] Ao Rtd 3 cm Index 1.7 cm/m2 LVPWd 1.3 cm IVSd 1.2 cm LA Ds 4 cm LVIDd 3.5 cm Index 2 cm/m2 RWT 0.72 LVIDs 1.8 cm LV Mas s 145 g (87-129) LV%fs 50 % LVM In dex 82 g/m LA Sng Plane LA Area 31 cm (8.8-23.4) LA Vol 116 ml Index 66 ml/m2 LA LngAx 6.7 cm LVOT For Flow LVOT 1.8 cm LVOT A cody 2.4 cm DOPPLER AV For Flow/DEWAYNE AV pkVel 263 cm/s (100-170) AV TVI 50 cm AV mnVel 154 cm/s AVpkAcRt 6832 cm/s AV pkPG 28 mmHg AV DeRt 806 cm/s AV Mean G 12 mmHg AV Area 1.3 cm (3-5) AV ET 326 msec AV AC 64 msec (83-118) AV AC/ET 0.2 Aortic Valve AV DI 0.52 LVOT For Flow LVOT TVI 26 cm LVOT CI 2.7 l/m/m LVOT SV 63 ml LVOTpkP G 7.6 mmHg LVOTpkVel 138 cm/s LVOTmnPG 3.6 mmHg LVOT CO 4.7 l/min HR 76 bpm LVOT SVi 36 ml/m MV Forward Flow MV pkVel 200 cm/s MV TVI 46 cm MV pkPG 16 mmHg MV Area P1/2t 2 cm (4-6) MV Mean G 4.7 mmHg MV Dec T 369 msec Signed 07/13/2019 10:46 AM Ghanshyam Tao M.D. Procedure Note Interface, Radiology Results In - 2019 10:48 AM SENIOR CORPORATE ACCOUNTANT Echocardiography Report [id number] [facility], [place] [address] Pat.Name: SUKI KOROMA Pat.I D: [id number] .Date: 07/13/2019 Refer .MD: SHAILESH HUTCHINSON MD Exam Time: 9:24:00 AM Study Type:Routine Echo Height: 59in Weigh t: 180lb BSA: 1.76 m2 Age: 2 1950,68Y Sex: FEMALE BP: 135/59 HR: 59 bpm Sonog rphr: Rin Pimentel RDCS Pat. Stat.:Inpatient Room: [facility] Study Status:Final Echo Event ID:[id number] Order ID: [id number] Reason for Study:HF - Re-eval of known H F (systolic or diastolic) to guide therapy Procedures: 2D Echo, Colorflow Doppler Race: C SUMMARY: LV size is normal. LV EF is normal. Kathe mated EF is 65-69% RV size is normal. RV systolic function is normal. Mild to moderate aortic valve stenosis. Mild calcific mitral stenosis. Estimated PA systolic pressure is 30 mmH g, assuming a mean RAP of 5 mmHg. FINDINGS: LV: LV size is normal. Concentric left ventricular remodeling. LV EF is normal. Overall wall motion is normal. Estimated EF is 65-69% RV: RV size is normal. RV systolic function is normal. LA: LA volume is severely enlarged . RA: RA size is normal. AO: Aortic root diameter is normal . MERLIN: Trace anterior pericardial eff usion. AV: Aortic valve not well seen. Mi ld aortic regurgitation. Mild to moderate aortic valve sten osis. MV: Mild to moderate thickening an d calcification of mitral leaflets. Moderate mitral chasity ular calcification. Thickened and/or calcified chordae. Amari cified papillary muscle. Mild mitral regurgitation. Mild ca lcific mitral stenosis. PV: Pulmonic valve not well seen. TV: No structural TV abnormalities noted. Mild tricuspid regurgitation Rouse: LV relaxation is impaired. LV filling pressure is elevated. Other: Estimated PA systolic pressure is 30 mmHg, assuming a mean RAP of 5 mmHg. MEASUREMENTS: 2D Parasternal Long [place] Ao Rtd 3 cm Inde x 1.7 cm/m2 LVPWd 1.3 cm IVSd 1.2 cm LA D s 4 cm LVIDd 3.5 cm Inde x 2 cm/m2 RWT 0.72 LVIDs 1.8 cm LV M ass 145 g (87-129) LV%fs 50 % LVM Index 82 g/m LA Sng Plane LA Area 31 cm (8.8-23.4) L A Vol 116 ml Index 66 ml/m2 LA LngAx 6.7 cm LVOT For Flow LVOT 1.8 cm LVOT Area 2.4 cm DOPPLER AV For Flow/DEWAYNE AV pkVel 263 cm/s (100-170) AV TVI 50 cm AV mnVel 154 cm/s AVpk AcRt 6832 cm/s AV pkPG 28 mmHg AV D eRt 806 cm/s AV Mean G 12 mmHg AV A cody 1.3 cm (3-5) AV ET 326 msec AV A C 64 msec (83-118) AV AC/ET 0.2 Aortic Valve AV DI 0.52 LVOT For Flow LVOT TVI 26 cm LVOT CI 2.7 l/m/m LVOT SV 63 ml LVOT pkPG 7.6 mmHg LVOTpkVel 138 cm/s LVOT mnPG 3.6 mmHg LVOT CO 4.7 l/min HR 76 bpm LVOT SVi 36 ml/m MV Forward Flow MV pkVel 200 cm/s MV T 46 cm MV pkPG 16 mmHg MV A cody P1/2t 2 cm (4-6) MV Mean G 4.7 mmHg MV D ec T 369 msec Signed 07/13/2019 10:46 AM Ghanshyam Tao M.D. Performing Organization Address City/State/Zipcode Phone Number [facility] [address] [place] [address] CT Chest Wo Contrast (07/13/2019 11:05 AM SENIOR CORPORATE ACCOUNTANT)Only the most recent of2 results within the time period is included. Specimen Narrative Performed At EXAMINATION: [facility] CT CHEST WO CONTRAST CLINICAL HISTORY: Pneumonia unresolved or complicated TECHNIQUE: Multiple axial images of the chest were obtained witho ut intravenous contrast. The lack of intravenous contrast reduces the sensitivity of detecting solid organ disease and evaluating vasculatu re. Sagittal and coronal computerized reformatted images were also obtained. CT imaging was performed with iterative reconstruction techniques and/or automated exposure control to reduce rad iation dose. COMPARISON: Chest CT 04/20/2019 FINDINGS: 1.There are new small bilateral pleural effusions. 2.There is increasing atelectasis and/or consolidation in both lower lobes and inferior lingula. 3.There is no thoracic lymphadenopathy. 4.Heart size is normal. Calcifications of the aortic a nd mitral valves and coronary arteries and aorta are agai n noted. 5.No significant skeletal abnormality is seen. IMPRESSION: New bilateral small pleural effusions. Increasing infi ltrates in the lower lobes and inferior lingula could be increasing c ompressive atelectasis, difficult to exclude pneumo jeane. [facility]-[id number] Procedure Note Interface, Radiology Results Incoming - 07/13/2019 12:26 PM SENIOR CORPORATE ACCOUNTANT EXAMINATION: CT CHEST WO CONTRAST CLINICAL HISTORY: Pneumonia unresolved or complicated TECHNIQUE: Multiple axial images of the chest were obtained without intravenous contrast. The lack of intravenous contrast reduces the sensitivity of detecting solid organ disease and evaluating vasculature. Sagittal and coronal computerized reformatted images were also obtained. CT imaging was performed with iterative reconstruction techniques and/or automated exposure control to reduce radiation dose. COMPARISON: Chest CT 04/20/2019 FINDINGS: 1.There are new small bilateral pleural effusions. 2.There is increasing atelectasis and/or consolidation in both lower lobes and inferior lingula. 3.There is no thoracic lymphadenopathy. 4.Heart size is normal. Calcifications o f the aortic and mitral valves and coronary arteries and aorta are again noted. 5.No significant skeletal abnormality is seen. IMPRESSION: New bilateral small pleural effusions. I ncreasing infiltrates in the lower lobes and inferior lingula could be increasing compressive atelectasis, difficult to exclude pneumonia. [facility]-[id number] Performing Organization Address City/State/Zipcode Phone Number [facility] [address] [place] [address] Us carotid duplex (07/13/2019 9:15 AM SENIOR CORPORATE ACCOUNTANT) Specimen Narrative Performed At [facility] Carotid A rtery Duplex Report [id number] [facility], [facility] [address], [place] [address] For associate quality engineer purposes, the categorization of the degree of the stenosis of this exam is based on criteria described i n the [facility] carotid stenosis grading white paper( www.intersocietal.org/Va scular) and Chriss Hess, Jojo Garner, et al. Carotid artery stenosis: schmidt-scale and Doppler US diagnosis-- Society of Radiologists in Ultrasound Consensus Conference. Radio logy. 2002; 229(2):340-6. Pat.Name: SUKI KOROMA Pat.ID: [id number] .Date: 07/13/2019 Refer.MD: SHAILESH HUTCHINSON MD Exam Time: 8:23:00 AM Study Type:C arotid Age: 2 1950,68Y Sex: FEMALE Sonogrphr: Ann Baldwin RVT Pat. Stat.:Luma arnold Room: A834A Tape Vol: [place], CPT - 4: 84152 Echo Poornima nt ID:[id number] Order ID: [id number] Reason for Study:Known carotid artery di sease. History of respiratory failure, COPD, CHF, CKD stage 3, morbid obesity, hypertension, A-Fib, WILFREDO. Procedures: Colorflow, Grayscale/2D, Pul sed wave Doppler Race: C SUMMARY: PHYSICAL ASSESSMENT Blood Pulses Carotid Pressure Carotid Temporal Br uit Right Patient refused + + 0 Left 135/59 + + 0 CAROTID ARTERY SCAN RIGHT: There is minimal intimal thicke honey in the common carotid artery. There is hard plaque noted in th e carotid endarterectomy site. A carotid endarterectomy site is visuali zed from the mid common carotid artery to proximal internal chaves tid artery. There is focal heterogeneous echogenic plaque in the pr oximal internal carotid artery with disturbed colorflow and elevated ve locities. The distal site of the carotid endarterectomy (proximal int ernal carotid artery), the internal carotid artery appears to be ki nked with colorflow disturbance and elevated velocities. LEFT: There is hard plaque in the common carotid artery. There is hard plaque in the bulb extending to the internal and external carotid arteries. Colorflow is normal. PRELIMINARY FINDINGS 1. 80-99% stenosis of the right proximal internal carotid artery (distal site of right carotid endarterec thu). 2. The distal site of the right carotid endarterectomy (proximal internal carotid artery), the right inte rnal carotid artery appears to be kinked with colorflow disturbance and elevated velocities. 3. Non-stenotic plaque in the left commo n carotid artery. 4. 50-69% stenosis of the left bulb and internal carotid artery. 5. <50% stenosis of the left external ca rotid artery. PHYSICIAN INTERPRETATION Bilateral carotid duplex examination dem onstrated atherosclerotic plaques in the bulbs/ CCAs. 80-99% stenosis of the right proximal i nternal carotid artery (distal site of right carotid endarterectomy). F lap vs Diaphragm. 50-69% stenosis of the left bulb and in ternal carotid artery. Both vertebral arteries are antegrade. I maging correlations recommended. FINDINGS: Carotid Findings: Right Left Verteb.Flw Antegrade Antegrade Subclavian Biphasic Biphasic MEASUREMENTS: DOPPLER Right CCA Dist CCA Dist PSV 32.2 cm/s CCA Dist EDV 12.1 cm/s Right CCA Mid CCA Mid PSV 28.7 cm/s CCA Mid EDV 11.3 cm/s Right CCA Prox CCA Prox PSV 57.3 cm/s CCA Prox EDV 10.3 cm/s Right ECA Prox ECA Prox PSV 31.3 cm/s ECA Prox EDV 5.15 cm/s Right ICA Dist ICA Dist PSV 76.7 cm/s ICA Dist EDV 31.3 cm/s Right ICA Mid ICA Mid PSV 196 cm/s ICA Mid EDV 64.3 cm/s ICA Prox ICA Prox PSV 516 cm/s ICA Prox EDV 213 cm/s Right Vertebral Vertebral PSV 64 cm/s Vertebral EDV 22 cm/s Right Subclavian Subclavian PSV 87.5 cm/s Subclavian EDV 0 cm/s Left CCA Dist CCA Dist PSV 58.1 cm/s CCA Dist EDV 11.5 cm/s Left CCA Mid CCA Mid PSV 84 cm/s CCA Mid EDV 15.4 cm/s Left CCA Prox CCA Prox PSV 59.6 cm/s CCA Prox EDV 13.4 cm/s Left ECA Prox ECA Prox PSV 124 cm/s ECA Prox EDV 0 cm/s Left ICA Dist ICA Dist PSV 64.9 cm/s ICA Dist EDV 25.9 cm/s Left ICA Mid ICA Mid PSV 119 cm/s ICA Mid EDV 20.3 cm/s Left ICA Prox ICA Prox PSV 174 cm/s ICA Prox EDV 60.2 cm/s Left Vertebral Vertebral PSV 46.5 cm/s Vertebral EDV 12.8 cm/s Left Subclavian Subclavian PSV 132 cm/s Subclavian EDV 0 cm/s ICA/CCA Ratio ICA/CCA PSV 18 Left ICA/CCA Ratio ICA/CCA PSV 2.07 Signed 07/13/2019 03:44 PM Mina Miller MD, RPVI Procedure Note Interface, Radiology Results In - 2019 3:49 PM [facility] Vascular Ultrasound Laboratory Carotid Artery Dupl ex Report [address] [address] For associate quality engineer purposes, the umair gorization of the degree of the stenosis of this exam is based on criteria described in the IAC carotid stenosis grading white paper( www.intersocietal.org/Vascular) and Chriss Hess, Jojo Garner, et al. Carotid artery stenosis: schmidt-scale and Doppler US diagnosis--Society of Radiologists in Ultrasound Consensus Conference. Radiology. 2003 Nov; 229(2):340-6. Pat.Name: SUKI KOROMA Pat.I D: [id number] St.Date: 07/13/2019 Refer .MD: SHAILESH HUTCHINSON MD Exam Time: 8:23:00 AM Study Type:Carotid Age: 2 1950,68Y Sex: FEMALE Sonogrphr: Ann Baldwin RVT Pat. Stat.:[facility] Vol: [place], CPT - 4: 71546 Echo Event ID:[id number] Order ID: [id number] Reason for Study:Known carotid artery di sease. History of respiratory failure, COPD, CHF, CKD stage 3, morbid obesity, hypertension, A-Fib, WILFREDO. Procedures: Colorflow, Grayscale/2D, Pul sed wave Doppler Race: C SUMMARY: PHYSICAL ASSESSMENT Blood Pulses Caroti d Pressure Carotid Temporal Bruit Right Patient refused + + 0 Left 135/59 + + 0 CAROTID ARTERY SCAN RIGHT: There is minimal intimal thicken ing in the common carotid artery. There is hard plaque noted in th e carotid endarterectomy site. A carotid endarterectomy site is visuali zed from the mid common carotid artery to proximal internal chaves tid artery. There is focal heterogeneous echogenic plaque in the pr oximal internal carotid artery with disturbed colorflow and elevated ve locities. The distal site of the carotid endarterectomy (proximal int ernal carotid artery), the internal carotid artery appears to be ki nked with colorflow disturbance and elevated velocities. LEFT: There is hard plaque in the co mmon carotid artery. There is hard plaque in the bulb extending to the internal and external carotid arteries. Colorflow is normal. PRELIMINARY FINDINGS 1. 80-99% stenosis of the right proximal internal carotid artery (distal site of right carotid endarterec thu). 2. The distal site of the right carotid endarterectomy (proximal internal carotid artery), the right inte rnal carotid artery appears to be kinked with colorflow disturbance and elevated velocities. 3. Non-stenotic plaque in the left commo n carotid artery. 4. 50-69% stenosis of the left bulb and internal carotid artery. 5. <50% stenosis of the left external ca rotid artery. PHYSICIAN INTERPRETATION Bilateral carotid duplex examination dem onstrated atherosclerotic plaques in the bulbs/ CCAs. 80-99% stenosis of the right proximal i nternal carotid artery (distal site of right carotid endarterectomy). F lap vs Diaphragm. 50-69% stenosis of the left bulb and in ternal carotid artery. Both vertebral arteries are antegrade. I geneva correlations recommended. FINDINGS: Carotid Findings: Right Left Verteb.Flw Antegrade Antegrade Subclavian Biphasic Biphasic MEASUREMENTS: DOPPLER Right CCA Dist CCA Dist PSV 32.2 cm/s CCA Dist EDV 12.1 cm/s Right CCA Mid CCA Mid PSV 28.7 cm/s CCA Mid EDV 11.3 cm/s Right CCA Prox CCA Prox PSV 57.3 cm/s CCA Prox EDV 10.3 cm/s Right ECA Prox ECA Prox PSV 31.3 cm/s ECA Prox EDV 5.15 cm/s Right ICA Dist ICA Dist PSV 76.7 cm/s ICA Dist EDV 31.3 cm/s Right ICA Mid ICA Mid PSV 196 cm/s ICA Mid EDV 64.3 cm/s ICA Prox ICA Prox PSV 516 cm/s ICA Prox EDV 213 cm/s Right Vertebral Vertebral PSV 64 cm/s Vert ebral EDV 22 cm/s Right Subclavian Subclavian PSV 87.5 cm/s Subc lavian EDV 0 cm/s Left CCA Dist CCA Dist PSV 58.1 cm/s CCA Dist EDV 11.5 cm/s Left CCA Mid CCA Mid PSV 84 cm/s CCA Mid EDV 15.4 cm/s Left CCA Prox CCA Prox PSV 59.6 cm/s CCA Prox EDV 13.4 cm/s Left ECA Prox ECA Prox PSV 124 cm/s ECA Prox EDV 0 cm/s Left ICA Dist ICA Dist PSV 64.9 cm/s ICA Dist EDV 25.9 cm/s Left ICA Mid ICA Mid PSV 119 cm/s ICA Mid EDV 20.3 cm/s Left ICA Prox ICA Prox PSV 174 cm/s ICA Prox EDV 60.2 cm/s Left Vertebral Vertebral PSV 46.5 cm/s Vert ebral EDV 12.8 cm/s Left Subclavian Subclavian PSV 132 cm/s Subc lavian EDV 0 cm/s ICA/CCA Ratio ICA/CCA PSV 18 Left ICA/CCA Ratio ICA/CCA PSV 2.07 Signed 07/13/2019 03:44 PM Mina Miller MD, RPVI Performing Organization Address City/State/Zipcode Phone Number [facility] [address] [place] [address] Hemoglobin A1c (07/13/2019 2:30 AM SENIOR CORPORATE ACCOUNTANT) [facility] Signature Hemoglobin A1C 5.1 4.0 - 5.6 % ABI EPISCOPAL Comment: HOSPITAL HbA1c cutoffs for diagnosing diabetes: 4.0% - 5.6% = normal 5.7% - 6.4% = increased risk for diabetes (prediabetes )9 >=6.5% = diabetes9 Goals for glycemic control (ADA 2016) < 7.0% Target for non adults with diabetes. More or less stringent targets may be appropriate for individual patients. <7.5% Target for Children and adolescents with type 1 diabetes. Specimen Blood Performing Organization Address City/[facility]/Zipcode Phone Number [facility] DEPARTMENT OF PATHOLOGY AND [address] [place] [address] [phone] [address] Lipid panel (07/13/2019 2:30 AM SENIOR CORPORATE ACCOUNTANT)Only the most recent of3 resultswithin the time period is included. Cholesterol 127 <200 mg/dL [facility] Triglycerides 128 <150 mg/dL [facility] HDL cholesterol 48 >40 mg/dL [facility] LDL cholesterol 63Comment: Result <100 mg/dL [facility] obtained by direct EPISCOPAL LDL measurement [facility] Lipid panel [facility] interpretation Comment: EPISCOPAL Total Cholesterol (mg/dL) HOSPIT AL <200 Desirable 200-239 Borderline-high >=240 High Triglycerides (mg/dL) <150 Normal 150-199 Borderline-high 200-499 High >=500 Very high HDL Cholesterol (mg/dL) <40 Low (male) <40 Low (female) LDL Cholesterol (mg/dL) <100 Optimal 100-129 Near or above optimal 130-159 Borderline-high 160-189 High >=190 Very high Risk Catergories that modify LDL goals. Risk Catergories LDL goal (mg/d L) CHD and CHD risk equivalent <100 (10-year risk >20%) Multiple (2+) risk factors <130 (10-year risk =<20%) 0-1 risk factors <160 (<10-year risk) Defining levels of lipids in metabolic syndrome Triglycerides >=150 mg/dL HDL Cholesterol Men <40 mg /dL Women <40 mg/ dL Non-HDL cholesterol is a second target for therapy in persons with high triglycerides (>=200 mg/dL) Specimen Plasma specimen Performing Organization Address City/State/Zipcode Phone Number [facility] DEPARTMENT OF PATHOLOGY AND [address] [place], [place] [address] [facility] [address] [place] [address] Urine culture (07/13/2019 12:08 AM SENIOR CORPORATE ACCOUNTANT)Only the most recent of3 resultswithin the time period is included. Urine culture No growth after 24 hours [facility] isolate Comment: HOSPITAL Specimen Information Specimen Source: Urine Specimen Site: Clean catch Specimen Urine Performing Organization Address City/[facility] Phone Number [facility] DEPARTMENT OF PATHOLOGY AND [address] [place] [address] [phone] [address] Urinalysis screen and microscopy, with reflex to culture (07/12/2019 11:15 PM SENIOR CORPORATE ACCOUNTANT)Only the most recent of3 resultswithin the time period is included. Specimen site Clean catch [facility] Color, UA Straw [facility] Appearance, UA Clear [facility] Specific gravity, UA 1.012 1.001 - 1.035 [facility] pH, UA 8.0 5.0 - 8.5 [facility] Protein, UA Negative Negative [facility] Glucose, UA Negative Negative [facility] Ketones, UA Negative Negative [facility] Bilirubin, UA Negative Negative [facility] Blood, UA Negative Negative [facility] Nitrite, UA Negative Negative [facility] Urobilinogen, UA <2.0 <2.0 [facility] Leukocyte esterase, Trace (A) Negative [facility] Epithelial cells, UA <1 /HPF [facility] WBC, UA 1 0 - 4 /HPF [facility] RBC, UA None seen 0 - 5 /HPF [facility] Bacteria, UA Few None seen [facility] Yeast, UA None seen [facility] Yeast with None seen [facility] pseudohyphae, HOSPITAL Specimen Urine Performing Organization Address City/[facility]/Zipcode Phone Number [facility] DEPARTMENT OF PATHOLOGY AND [address] [place] [address] [phone] [address] Microalbumin, urine, random (07/12/2019 11:15 PM SENIOR CORPORATE ACCOUNTANT) Total volume, urine No volume mL [facility] Urine creatinine 45 mg/dL [facility] Urine microalbumin <1.2 mg/dL [facility] Urine SEE 0 - 30 mg/g [facility] microalbumin/creatini COMMENTComment: HOSPITAL ne ratio Unable to calculate due to low analyte concentration. Specimen Urine Performing Organization Address [facility] Phone Number [facility] DEPARTMENT OF PATHOLOGY AND [address] [place] [address] [place] [address] Sodium level, urine, random (07/12/2019 11:15 PM SENIOR CORPORATE ACCOUNTANT) Pathologist Sig nature Sodium, urine, random 105 mEq/L [facility] Specimen Urine Performing Organization Address [facility] Phone Number [facility] DEPARTMENT OF PATHOLOGY AND [address] [place] [address] [place] [phone] Protein, urine, random (07/12/2019 11:15 PM SENIOR CORPORATE ACCOUNTANT) Pathologist Sig nature Protein, urine random <4 mg/dL [facility] Specimen Urine Performing Organization Address [facility] Phone Number [facility] DEPARTMENT OF PATHOLOGY AND [address] [place] [address] [place] [phone] Creatinine level, urine, random (07/12/2019 11:15 PM SENIOR CORPORATE ACCOUNTANT) Pathologist Sig nature Creatinine, urine, 46 mg/dL [facility] Specimen Urine Performing Organization Address [facility] Phone Number [facility] DEPARTMENT OF PATHOLOGY AND [address] [place] [phone] Chloride level, urine, random (07/12/2019 11:15 PM SENIOR CORPORATE ACCOUNTANT) Pathologist Sig nature Chloride, urine, random 47 mEq/L [facility] Specimen Urine Performing Organization Address [facility] Phone Number [facility] DEPARTMENT OF PATHOLOGY AND [address] [place] [address] [place] [phone] Influenza antigen test, reflex negative to RPP (05/19/2019 3:30 PM SENIOR CORPORATE ACCOUNTANT)Only the most recent of2 resultswithin the time period is included. Influenza antigen Negative for Influenza A/B antigen. [facility] Comment: HOSPITAL Specimen Information Specimen Source: Nares Specimen Site: Not specified Specimen Nares - Not specified Performing Organization Address [facility]/Zipcode Phone Number [facility] DEPARTMENT OF PATHOLOGY AND [address] [place], [place] [address] [facility] [address] [place] [address] Ionized calcium (04/18/2019 5:30 AM CDT)Only the most recent of3 resultswithin the time period is included. Pathologist Sig nature pH 7.35 [facility] Ionized calcium 1.16 1.11 - 1.32 mmol/L [facility] Specimen Plasma specimen Performing Organization Address City/[facility]code Phone Number [facility] DEPARTMENT OF PATHOLOGY [address] [place] [address] [phone] [place] [phone] HOSPITAL Sodium level, syringe (04/16/2019 12:33 PM CDT)Only the most recent of2 results within the time period is included. Pathologist Sig nature Sodium, syringe 127 125 - 148 mEq/L [facility] Specimen Blood Performing Organization Address [facility] Phone Number [facility] DEPARTMENT OF PATHOLOGY [address] [place] [address] X [phone] [place] [address] HOSPITAL Potassium, syringe (04/16/2019 12:33 PM CDT)Only the most recent of2 results within the time period is included. Pathologist Sig nature Potassium, syringe 3.6 3.5 - 5.0 mEq/L [facility] Specimen Blood Performing Organization Address City/[facility] Phone Number [facility] DEPARTMENT OF PATHOLOGY [address] [place] [phone] [address] [facility] [phone] [place] [address] X [phone] HOSPITAL Ionized calcium, arterial (04/16/2019 12:33 PM CDT)Only the most recent of2 resultswithin the time period is included. Pathologist Sig nature Ionized calcium, 0.97 (L) 1.11 - 1.32 [facility] arterial mmol/L [facility] Specimen Blood Performing Organization Address [facility] Services[facility] Phone Number [facility] DEPARTMENT OF PATHOLOGY [address] [place] [address] X [phone] [address] HOSPITAL Hemoglobin, syringe (04/16/2019 12:33 PM CDT)Only the most recent of2 results within the time period is included. Pathologist Sig nature Hemoglobin, syringe 11.1 (L) 12.0 - 16.0 g/dL [facility] Specimen Blood Performing Organization Address City/[facility] Servicescoma Phone Number [facility] DEPARTMENT OF PATHOLOGY [address] [place] [address] AND [place] [address] HOSPITAL Glucose level, syringe (04/16/2019 12:33 PM CDT)Only the most recent of2 results within the time period is included. Pathologist Sig nature Glucose, syringe 156 (H) 65 - 99 mg/dL [facility] Specimen Blood Performing Organization Address [facility] Phone Number [facility] DEPARTMENT OF PATHOLOGY [address] [place] [address] AND [place] [address] HOSPITAL Arterial blood gas, corrected (04/16/2019 12:33 PM CDT)Only the most recent of2 resultswithin the time period is included. Pathologist [facility] [place] [place] nature pH, arterial 7.40 7.35 - 7.45 [facility] pCO2, arterial 44 35 - 45 mmHg [facility] pO2, arterial 313 (H) 80 - 90 mmHg [facility] Temperature, Celsius 37.0 Degrees C [facility] O2 saturation, 99 95 - 100 % [facility] arterial [facility] pH, arterial 7.40 [facility] corrected [facility] pCO2, arterial 44 mmHg [facility] corrected [facility] pO2, arterial 313 mmHg [facility] Base excess, arterial 2 -2 - 2 mEq/L [facility] Specimen Blood Performing Organization Address City/[facility] Servicescode Phone Number [facility] DEPARTMENT OF PATHOLOGY [address] [place] [phone] AND [place] [address] [facility] Us duplex arterial upper extremity (04/15/2019 11:10 PM CDT) Specimen Narrative Performed At EXAM: US DUPLEX ARTERIAL UPPER EXTREMI TY RIGHT HM [facility] CLINICAL HISTORY: cold hand s p removal of RSC art erial catheter with closure device RUE arteriogram TECHNIQUE: Grayscale, color Doppler, and spectral wa veform analysis of the right upper extremity arterial syste m was performed. COMPARISON: None. FINDINGS: No flow is identified within the distal brachial arter y and proximal radial artery. Minimal flow is seen within the remaini ng radial and ulnar arteries. Specific velocities are as follows: Right subclavian artery -87.6 cm/s Right axillary artery -31.3 cm/s Proximal brachial artery -26.1 cm/s Mid brachial artery -16.1 cm/s Distal radial artery -no flow identified Mid radial artery -6 cm/s Distal radial artery -4.7 cm/s Proximal ulnar artery -4.7 cm/s Mid ulnar artery -4.7 cm/s Distal ulnar artery -4.7 cm/s IMPRESSION: 1.No flow is identified within the distal brachial art isabel and proximal radial artery. Minimal flow is seen within the remaini ng radial and ulnar arteries. Specific velocities are as listed. Findings were discussed with Dr. Webb at 019 11:21 PM who verbalized understanding. [facility]-[id number] Procedure Note Interface, Radiology Results Incoming - 04/15/2019 11:26 PM CDT EXAM: US DUPLEX ARTERIAL UPPER EXTREMITY RIGHT CLINICAL HISTORY: cold hand s p remova l of RSC arterial catheter with closure device RUE arteriogram TECHNIQUE: Grayscale, color Doppler, an d spectral waveform analysis of the right upper extremity arterial system was performed. COMPARISON: None. FINDINGS: No flow is identified within the distal brachial artery and proximal radial artery. Minimal flow is seen within the remaining radial and ulnar arteries. Specific velocities are as follows: Right subclavian artery -87.6 cm/s Right axillary artery -31.3 cm/s Proximal brachial artery -26.1 cm/s Mid brachial artery -16.1 cm/s Distal radial artery -no flow identified Mid radial artery -6 cm/s Distal radial artery -4.7 cm/s Proximal ulnar artery -4.7 cm/s Mid ulnar artery -4.7 cm/s Distal ulnar artery -4.7 cm/s IMPRESSION: 1.No flow is identified within the dista l brachial artery and proximal radial artery. Minimal flow is seen within the remaining radial and ulnar arteries. Specific velocities are as listed. Findings were discussed with Dr. Maira ace at 04/15/2019 11:21 PM who verbalized understanding. [facility]-[id number] Performing Organization Address [facility] Phone Number [facility] [address] [place] [address] [place] < 1 Hour (04/15/2019 3:30 PM CDT) Specimen Narrative Performed At EXAMINATION: [place] 1 HOUR [facility] INDICATION: Pain IMPRESSION: Intraoperative fluoroscopy provided. No radiologist pr esent for procedure. Please see procedure note for details. Fluoroscopic images: 316 Fluoroscopy time: 1.8 minutes Procedure Note Interface, Radiology Results Incoming - 04/15/2019 3:38 PM CDT EXAMINATION: [place] 1 HOUR INDICATION: Pain IMPRESSION: Intraoperative fluoroscopy provided. No radiologist present for procedure. Please see procedure note for details. Fluoroscopic images: 316 Fluoroscopy time: 1.8 minutes Performing Organization Address [facility] Phone Number [facility] [address] [place] [address] Central line (04/15/2019 2:21 PM CDT) Narrative Performed At Maninder Mejia MD 04/15/20 3:12 PM Central line Performed by: Maninder Mejia MD Authorized by: Maninder Mejia MD Patient Location: [place] Start Time: 04/15/2019 2:21 PM End Time: 04/15/2019 2:21 PM Staff: Anesthesiologist: Maninder Mejia MD Resident/COOPERER/AA: Esther Taveras CRNA Performed by: Anesthesiologist Preprocedure:patient identified, IV checked, site and side verified, risks and benefits discussed, procedure verifi ed, surgical consent complete, patient position confirmed, monitors and equipment checked and pre-op evaluation complete MSBT: antiseptic used during central justin ous catheter insertion, all elements of maximal sterile barrier tech nique followed, hand hygiene performed prior to central venous cathet er insertion, cap/gown used by other personnel during central venous ca theter insertion, solutions labeled and all ports not used during in sertion clamped TIme Out Performed: 04/15/2019 2:21 PM Indications: Indications: Central pressure monit oring and vascular access Anesthesia: Anesthesia: General Procedure details: Patient position: Trendelenburg Catheter Type: Triple lumen Catheter Size: 8 Fr Catheter Site: internal jugular vein Catheter site laterality: Left Pre-procedure: Landmarks identified Ultrasound guidance used: Yes Ultrasound image saved: Yes Number of attempts: 1 Successful placement: Yes Guidewire removal: Guidewire removal is confirmed Guidewire removal witnessed by: Esther Saini CRNA Post-procedure: Post-procedure: line sutured, sterile dressing appl ied per protocol and ports flushed with saline Post-procedure: Sterile caps on all hubs and blood cleaned with CHG Assessment: Blood return through al l ports and free fluid flow Patient tolerance: Patient tolerate d the procedure well with no immediate complications Arterial line (04/15/2019 2:21 PM CDT) Narrative Performed At Maninder Mejia MD 04/15/20 3:12 PM Arterial line Performed by: Maninder Mejia MD Authorized by: Maninder Mejia MD Patient Location: OR Start Time: 04/15/2019 2:21 PM End Time: 04/15/2019 2:21 PM Staff: Anesthesiologist: Maninder Mejia MD Resident/COOPERER/AA: Esther Taveras CRNA Performed by: Anesthesiologist Pre-procedure: patient identified, IV ch ecked, site and side verified, risks and benefits discussed, procedure verified, surgical consent complete, patient position confirmed, monitors and equ ipment checked and pre-op evaluation complete MSBT: antiseptic used, all elements of maximal sterile barrier technique followed, hand hygiene performed, cap/go wn used by other personnel and solutions labeled TIme Out Performed: 04/15/2019 2:21 PM Indications: Indications: multiple ABGs and hemody namic monitoring Anesthesia: Anesthesia: General Procedure Details: Arterial Line placement: Placed pos t induction Line placement site: Radial Line placement side: Left Arterial line gauge: 20 G Number of attempts: 3 Ultrasound guidance used: Yes Post-procedure: Post-procedure: Sterile dressing ap plied Post procedure circulation, sensation, movement: Unchanged and normal Patient tolerance: Patient tolerate d the procedure well with no immediate complications Respiratory culture, quantitative (04/15/2019 11:10 AM CDT) Respiratory culture Normal oral pedro [facility] isolate, 10-5 cfu/ml HOSPITAL quantitative (A) Comment: Specimen Information Specimen Source: Mini bronchial alveolar lavage Specimen Site: RUL (right upper lobe) Specimen Mini bronchial alveolar lavage - RUL (ri ght upper lobe) Performing Organization Address City/State/Zipcode Phone Number [facility] DEPARTMENT OF PATHOLOGY AND [address] [place] [address] [place] [address] Echocardiogram complete w contrast and 3D if needed (03/29/2019 2:35 PM CDT) Specimen Narrative Performed At [facility] Echo cardiography Report [id number] [facility], [facility] [address], [place] [address] Pat.Name: SUKI KOROMA Pat.ID: [id number]Date: 03/29/2019 Refer.MD: PATRICK ESPINOZA MD Exam Time: 2:02:00 PM Study Type:R outine Echo Height: 59in Weight: 200lb BSA: 1.85 m2 Ag e: 1950,68Y Sex: FEMALE BP: 219/92 HR: 75 bpm Sonogr phr: Ce Hernandez, RCS, RVS Pat. Stat.:Inpatient Room: ED 09 Study Status:Final Echo Event ID:[id number] Order ID: [id number] Reason for Study:chest pain Procedures: 2D Echo, Colorflow Doppler, Portable, Intravenous Lumason Contrast Race: C SUMMARY: Mild concentric LVH with hyperdynamic LV EF. Normal RV systolic function. Mild calcific aortic stenosis; mild ao rtic regurgitation. Mild mitral stenosis related to annular calcification. Normal RAP estimate. FINDINGS: LV: LV size is normal. There is mild concentric LV hypertrophy. LV EF is hyperdynamic. Overall wall m otion is hyperdynamic. Estimated EF is >70%. RV: RV size is normal. RV systo lic function is normal. LA: LA volume is severely enlar ged. RA: RA volume is enlarged. AO: Aortic root diameter is nor mal. MERLIN: No pericardial effusion. The re is an anterior space consistent with a promi nent epicardial fat pad. AV: Aortic valve not well seen. Mild aortic regurgitation. Mild aortic valve stenosis. Estimated mean aortic valve gradient 19 mmHg, peak velocity 3.2 m/sec, and valve area of 1.5 cm2 using continuity equation. Transvalvu lar gradients may be partially elevated due to concomitant aortic regurgitation MV: Moderate mitral annular calcification. Mi ld mitral stenosis. Estimated mean mitral valve gradient 7 mmHg at a heart rate of 67 b/min. PV: No structural PV abnormalit ies noted. TV: No structural TV abnormalit ies noted. Rouse: Hepatic vein pressure is nor mal, RA pressure < 5mmHg. Unable to assess diastolic fun ction due to mitral inflow obstruction. Other: Insufficient TR jet to estim ate PA systolic pressure. MEASUREMENTS: 2D Parasternal Long [place] Ao An 1.8 cm LVPWd 1.1 cm Ao Rtd 2.5 cm Index 1.4 cm/m2 LA Ds 4.3 cm IVSd 1.2 cm RWT 0.5 LVIDd 4.5 cm Index 2.4 cm/m2 LV Mass 186.4 g (87-129 ) LVIDs 2.6 cm LVM In dex 100.8 g/m LV%fs 42.2 % LVOT 1.7 cm LA Sng Plane LA Area 26.9 cm (8.8-23.4) LA Vol 90 ml Index 48.6 ml/m2 LA LngAx 6.5 cm LVOT LVOT Area 2.3 cm DOPPLER AV For Flow/DEWAYNE AV pkVel 324.8 cm/s (100-170) AV AC/ET 0.2 AV mnVel 199.8 cm/s AV TVI 64.5 cm AV pkPG 42.2 mmHg AVpkAcRt 95072.5 cm/s AV Mean G 18.8 mmHg AV DeRt 1005.8 cm/s AV ET 323 msec AV AC 50 msec (83-118) Aortic Valve AV DI 0.6 AV Ar ea 1.5 cm (3-5) LVOT For Flow LVOT TVI 41 cm LVOTmnP G 6.7 mmHg LVOTpkVel 175.7 cm/s HR 65 bpm LVOTpkPG 12.3 mmHg LVOT LVOT SV 94.3 ml LVOT CO 6.1 l/min SVi 51 ml/m LVOT C I 3.3 l/m/m Signed 03/29/2019 04:34 PM Jian Frederick M.D. Procedure Note Interface, Radiology Results In - 2018 4:37 PM CDT Echocardiography Report [id number] [place] [address] Pat.Name: SUKI KOROMA Pat.I D: [id number] .Date: 03/29/2019 Refer .MD: PATRICK ESPINOZA MD Exam Time: 2:02:00 PM Study Type:Routine Echo Height: 59in Weigh t: 200lb BSA: 1.85 m2 Age: 2 1950,68Y Sex: FEMALE BP: 219/92 HR: 75 bpm Sonog rphr: VANDANA Aponte, RVS Pat. Stat.:Inpatient Room: ED 09 Study Status:Final Echo Event ID:[id number] Order ID: [id number] Reason for Study:chest pain Procedures: 2D Echo, Colorflow Doppler, Portable, Intravenous Lumason Contrast Race: C SUMMARY: Mild concentric LVH with hyperdynamic LV EF. Normal RV systolic function. Mild calcific aortic stenosis; mild aor tic regurgitation. Mild mitral stenosis related to annular calcification. Normal RAP estimate. FINDINGS: LV: LV size is normal. There is mi ld concentric LV hypertrophy. LV EF is hyperdynamic. Overal l wall motion is hyperdynamic. Estimated EF is >70%. RV: RV size is normal. RV systolic function is normal. LA: LA volume is severely enlarged . RA: RA volume is enlarged. AO: Aortic root diameter is normal . MERLIN: No pericardial effusion. There is an anterior space consistent with a prominent e picardial fat pad. AV: Aortic valve not well seen. Mi ld aortic regurgitation. Mild aortic valve stenosis. Estima alden mean aortic valve gradient 19 mmHg, peak velocity 3.2 m/ sec, and valve area of 1.5 cm2 using continuity equation. Tr ansvalvular gradients may be partially elevated due to con comitant aortic regurgitation MV: Moderate mitral annular calcif ication. Mild mitral stenosis. Estimated mean mitral valve g radient 7 mmHg at a heart rate of 67 b/min. PV: No structural PV abnormalities noted. TV: No structural TV abnormalities noted. Rouse: Hepatic vein pressure is yulissa l, RA pressure < 5mmHg. Unable to assess diastolic function due to mitral inflow obstruction. Other: Insufficient TR jet to estimat e PA systolic pressure. MEASUREMENTS: 2D Parasternal Long [place] Ao An 1.8 cm LVPW d 1.1 cm Ao Rtd 2.5 cm Inde x 1.4 cm/m2 LA Ds 4.3 cm IVSd 1.2 cm RWT 0.5 LVIDd 4.5 cm Inde x 2.4 cm/m2 LV Mass 186.4 g (87-129) LVIDs 2.6 cm LVM Index 100.8 g/m LV%fs 42.2 % LVOT 1.7 cm LA Sng Plane LA Area 26.9 cm (8.8-23.4) L A Vol 90 ml Index 48.6 ml/m2 LA LngAx 6.5 cm LVOT LVOT Area 2.3 cm DOPPLER AV For Flow/DEWAYNE AV pkVel 324.8 cm/s (100-170) AV AC/ET 0.2 AV mnVel 199.8 cm/s AV T 64.5 cm AV pkPG 42.2 mmHg AVpk AcRt 08494.5 cm/s AV Mean G 18.8 mmHg AV D eRt 1005.8 cm/s AV ET 323 msec AV A C 50 msec (83-118) Aortic Valve AV DI 0.6 AV A cody 1.5 cm (3-5) LVOT For Flow LVOT TVI 41 cm LVOT mnPG 6.7 mmHg LVOTpkVel 175.7 cm/s HR 65 bpm LVOTpkPG 12.3 mmHg LVOT LVOT SV 94.3 ml LVOT CO 6.1 l/min SVi 51 ml/m LVO T CI 3.3 l/m/m Signed 03/29/2019 04:34 PM Jian Frederick M.D. Performing Organization Address City/State/Zipcode Phone Number [facility] [address] [place] [address] CT Angiogram Pe Chest (03/29/2019 1:17 PM CDT) Specimen Narrative Performed At EXAMINATION: CT ANGIOGRAM PE CHEST [facility] CLINICAL HISTORY: SHORTNESS OF BREATH TECHNIQUE: PE PROTOCOL: CT angiographic images of th e chest were obtained during intravenous administration of iodinate d contrast. Computerized reformatted images and 3-D MIP images wer e also obtained and archived (CT pulmonary embolus richard col). CT imaging was performed with iterative reconstruction te chnique and/or automated exposure control to reduce rad iation dose. COMPARISON: Chest x-ray on 03/28/2019 IMPRESSION: CHEST: 1. Pulmonary Arteries: No definite CT scan evidence of acute pulmonary embolus. Main pulmonary artery is mildly enlarged measuring 3.5 cm. 2. Aorta: Calcification of the thoracic aorta is noted. No aneurysm. 3. Heart: The heart is normal in size. Coronary artery calcifications are present. 4. Pericardial Fluid: No pericardial eff usion. 5. Mediastinum: No enlarged mediastinal or hilar lymph adenopathy. No mediastinal mass. 4. Airways: Central airways are patent. 5. Lungs: Lower lobe bronchitis with patchy bandlike a telectasis. No discrete focal infiltrates. No suspiciou s pulmonary nodules or masses. 6. Pleural Fluid: No pleural effusions. 7. Bones: Degenerative changes of the osseous structur es. No suspicious lesions. 8. Upper Abdomen: No suspicious abnormal ities. 9. Other Findings: None SUMMARY: 1.No CT scan evidence of acute pulmonary embolus. Pulm onary artery hypertension. 2.Acute bronchitis with patchy atelectasis at the lung bases. No focal infiltrates. [facility]-[id number] Procedure Note [facility], Radiology Results Incoming - 03/29/2019 1:31 PM CDT EXAMINATION: CT ANGIOGRAM PE CHEST CLINICAL HISTORY: SHORTNESS OF BREATH TECHNIQUE: PE PROTOCOL: CT angiographic images of the chest were obtained during intravenous administration of iodinated contrast. Computerized reformatted images and 3-D MIP images were also obtained and archived (CT pulmonary embolus protocol). CT imaging was performed with iterative rec onstruction technique and/or automated exposure control to reduce radiation dose. COMPARISON: Chest x-ray on 03/28/2019 IMPRESSION: CHEST: 1. Pulmonary Arteries: No definite CT sc an evidence of acute pulmonary embolus. Main pulmonary artery is mildly enlarged measuring 3.5 cm. 2. Aorta: Calcification of the thoracic aorta is noted. No aneurysm. 3. Heart: The heart is normal in size. C oronary artery calcifications are present. 4. Pericardial Fluid: No pericardial eff usion. 5. Mediastinum: No enlarged mediastinal or hilar lymphadenopathy. No mediastinal mass. 4. Airways: Central airways are patent. 5. Lungs: Lower lobe bronchitis with pat ever bandlike atelectasis. No discrete focal infiltrates. No suspicious pulmonary nodules or masses. 6. Pleural Fluid: No pleural effusions. 7. Bones: Degenerative changes of the os seous structures. No suspicious lesions. 8. Upper Abdomen: No suspicious abnormal ities. 9. Other Findings: None SUMMARY: 1.No CT scan evidence of acute pulmonary embolus. Pulmonary artery hypertension. 2.Acute bronchitis with patchy atelectas is at the lung bases. No focal infiltrates. [facility]-[id number] Performing Organization Address City/[facility]/Zipcode Phone Number [facility] [address] [place] [address] Alpha-1 antitrypsin level (03/29/2019 10:46 AM CDT) Pathologist Sig nature Alpha-1 antitrypsin 129 90 - 200 mg/dL [facility] Specimen Plasma specimen Performing Organization Address City/[facility] Phone Number [facility] DEPARTMENT OF PATHOLOGY AND [address] [place] [address] [phone] GENOMIC MEDICINE [address] [address] ECG ED Preliminary Interpretation - Not an Order (03/28/2019 4:48 PM CDT) Narrative Performed At Mark Coughlin DO 03/30/2019 3:36 AM ECG ED Preliminary Interpretation - Not an Order Performed by: Mark Coughlin DO Authorized by: Mark Coughlin DO ECG reviewed by ED Physician in the abse nce of a knurling machine tender: yes Interpretation: Interpretation: abnormal Rate: ECG rate: 77 ECG rate assessment: normal Rhythm: Rhythm: sinus rhythm Ectopy: Ectopy: none QRS: QRS axis: Left QRS intervals: Normal Conduction: Conduction: normal ST segments: ST segments: Normal T waves: T waves: normal Comments: low voltage QRS. CRITICAL CARE (03/28/2019 4:48 PM CDT) Narrative Performed At aMrk Coughlin DO 03/30/2019 3:36 AM Critical Care Performed by: Mark Coughlin DO Authorized by: Mark Coughlin DO Critical care provider statement: Critical care time (minutes): 35 Critical care time was exclusive of: Separately b illable procedures and treating other patients and teaching brady e Critical care was necessary to treat or prevent imminent or life-threatening deterioration of the following condit ions: Respiratory failure (and uncontrolled HTN) Critical care was time spent personal ly by me on the following activities: Blood draw for specimens, development of treatment plan with patient or surrogate, discussions with c onsultants, evaluation of patient's response to treatment, examination of patien t, interpretation of cardiac output measurements, obtaining history from jewel arnold or surrogate, ordering and performing treatments and interventions, ordering and review of laboratory studies, ordering and review of radiogra phic studies, pulse oximetry, re-evaluation of patient's con dition and review of old charts Jaime 'yes' if you are taking over critical care for this patient from another provider.: no after 03/13/2019 Advance Directives For more information, please contact: [phone] Type Date Recorded 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
--- OUTSIDE RECORDS SUMMARY | 2020-03-13 00:09 | XMS REPORT | Clinical Summary ---
:1950 Author Organization [facility] Address [address] [place] [address] Care Team Providers Name Role Phone Unavailable Primary Care Provider Unavailable Allergies Active Allergy Reactions Severity Noted Date Comments Latex 12/11/2016 Medications Medication Sig Dispensed Refills Start Date End Date Status cholecalciferol, Take 2,000 Units 0 Active vitamin D3, 2,000 by mouth daily. unit Tab levalbuterol Inhale 2 puffs by 0 Active (XOPENEX HFA) 45 mouth via inhaler mcg/actuation every 4 (four) inhaler hours as needed for Wheezing. rivaroxaban Take by mouth 0 Acti ve (XARELTO) 20 mg daily with Tab tablet dinner. Lactobac Take by mouth. 0 Activ e no.41/Bifidobact no.7 (PROBIOTIC-10 ORAL) famotidine Take 1 tablet (20 30 tablet 0 07/05/2019 Active (PEPCID) 20 MG mg total) by tablet mouth daily. budesonide-formot Inhale 2 puffs by 1 Inhaler 0 07/05/2019 Active sami (SYMBICORT) mouth via inhaler 160-4.5 2 (two) times mcg/actuation daily. inhaler benzonatate Take 1 capsule 20 capsule 0 07/05/2019 A ctive (TESSALON) 100 MG (100 mg total) by capsule mouth 3 (three) times daily as needed for Cough. metoprolol Take 0.5 tablets 60 tablet 0 07/05/2019 A ctive (TOPROL-XL) 25 MG (12.5 mg total) 24 hr tablet by mouth 2 (two) times daily For your heart. ipratropium Take 500 mcg by 0 Ac tive (ATROVENT) 0.02 % nebulization 4 nebulizer (four) times solution daily as needed for Wheezing (shortness of breath). arformoterol Take 15 mcg by 0 Ac tive (BROVANA) 15 nebulization 2 mcg/2 mL (two) times nebulizer daily. solution budesonide Take 2 mLs (0.5 60 mL 0 07/05/2019 Ac tive (PULMICORT) 0.5 mg total) by mg/2 mL nebulizer nebulization 2 solution (two) times daily. furosemide Take 1 tablet (20 60 tablet 0 07/05/2019 Active (LASIX) 20 MG mg total) by tablet mouth 2 (two) times daily Note change in dose. carvedilol Take 3.125 mg by 0 Di scontinued (COREG) 3.125 MG mouth every 12 9 tablet (twelve) hours. diazePAM (VALIUM) Take 5 mg by 0 Discontinued 5 MG tablet mouth every night 0 as needed for Anxiety. furosemide Take 40 mg by 0 Disco ntinued (LASIX) 40 MG mouth daily. 0 tablet amiodarone Take 200 mg by 0 Disc ontinued (PACERONE) 200 MG mouth 2 (two) 9 tablet times daily. polyvinyl alcohol Place 1 drop into 15 mL 0 07/04/2019 (LIQUIFILM TEARS) both eyes 4 0 1.4 % ophthalmic (four) times solution daily for 30 days. furosemide Take 1 tablet (20 30 tablet 0 07/05/2019 Discontinued (LASIX) 20 MG mg total) by 0 tablet mouth daily Note change in dose - OK to split 40 mg. amoxicillin-clavu Take 1 tablet by 4 tablet 0 07/05/20190 lanate mouth every 12 0 (AUGMENTIN) (twelve) hours 500-125 mg per for 2 days tablet antibiotics. Active Problems Problem Noted Date Respiratory failure with hypoxia 06/29/2019 Encounters Date Type Specialty Care Team Description 07/27/2019 Refill Internal Medicine Bob Guerra MD 06/29/2019 - Hospital Encounter General Internal Melanie Cm Acu te respiratory failure with hypoxia and hypercapnia (HCC); 07/05/2019 Medicine MD Acute respiratory failure with hypoxia ( HCC); Isatu, [place] Dysphagia, u nspecified type; D Aspiration pneumonia of left upper lobe due to gastric secretions (HCC); Bob Guerra, Paroxysmal a trial fibrillation (HCC); Systolic conges tive heart failure, unspecified HF chronicity (HCC); Smoking greater than 40 pack years; Uses continuous positive airway pressure (CPAP) ventilation at home after 03/13/2019 Immunizations Name Dates Previously Given Next Due INFLUENZA TRIVALENT ADJUVANTED PF IM 06/29/2019 (Deferred: - patient refused) Pneumococcal Conjugate (Prevnar) 06/29/2019 (Deferred: ) 13-Valent Social History Tobacco Use Types Packs/Day Years Used Date Never Assessed Sex Assigned at Date Recorded Not on file Job Start Date Occupation Industry Not on file Not on file Not on file Travel History Travel Start Travel End No recent travel history available. Last Filed Vital Signs Vital Sign Reading Time Taken Blood Pressure 165/74 07/05/2019 6:50 AM [facility] Pulse 86 07/05/2019 8:15 AM [employer] Temperature 36.6 C (97.9 F) 07/05/2019 6:50 AM [employer] [employer] Respiratory Rate 20 07/05/2019 8:15 AM [employer] [employer] Oxygen Saturation 99% 07/05/2019 8:15 AM [employer] [employer] Inhaled Oxygen Concentration 28% 07/02/2019 11:34 PM [employer] Weight 85.5 kg (188 lb 7.9 oz) 07/05/2019 6:28 AM [employer] Height 149.9 cm (4' 11") 06/30/2019 8:23 PM [employer] Body Mass Index 38.07 07/05/2019 6:28 AM [facility] Plan of Treatment Not on file Procedures Procedure Name Priority Date/Time Associated Comments Diagnosis RHYTHM STRIP - SCAN 07/17/2019 1:24 PM [employer] REPORT OF PROCEDURE - 07/11/2019 9:01 ENDOSCOPY SCAN AM [employer] RHYTHM STRIP - SCAN 07/11/2019 9:01 AM [employer] POCT-GLUCOSE METER Routine 07/05/2019 6:51 Resul ts for this AM [employer] procedure are i n the results section. XR CHEST 1 VIEW Routine 07/05/2019 6:11 Results for this PORTABLE/BEDSIDE AM [employer] procedure a re in the results section. POCT-GLUCOSE METER Routine 07/04/2019 9:19 Resul ts for this PM [employer] procedure are i n the results section. POCT-GLUCOSE METER Routine 07/04/2019 4:26 Resul ts for this PM [employer] procedure are i n the results section. PULMONARY FUNCTION - 07/04/2019 4:00 SCAN PM [employer] POCT-GLUCOSE METER Routine 07/04/2019 11:50 Resul ts for this AM [employer] procedure are i n the results section. BLOOD GAS, VENOUS Routine 07/04/2019 11:50 Result s for this AM [employer] procedure are i n the results section. DLCO (SINGLE BREATH Routine 07/04/2019 9:43 Resu lts for this DIFFUSION) AM [employer] procedure are i n the results section. LUNG VOLUMES Routine 07/04/2019 9:43 Results for this AM [employer] procedure are i n the results section. MIP/MEP Routine 07/04/2019 9:43 Results for this AM [employer] procedure are i n the results section. SPIROMETRY Routine 07/04/2019 9:43 Results for this AM [employer] procedure are i n the results section. POCT-GLUCOSE METER Routine 07/04/2019 7:31 Resul ts for this AM [employer] procedure are i n the results section. BASIC METABOLIC PANEL STAT 07/04/2019 3:53 Re sults for this (7) AM [employer] procedure are i n the results section. MAGNESIUM STAT 07/04/2019 3:53 Results for this AM [employer] procedure are i n the results section. PROTHROMBIN TIME/INR STAT 07/04/2019 3:53 Res ults for this AM [employer] procedure are i n the results section. US RENAL WITH DOPPLER Routine 07/04/2019 2:38 Re sults for this AM [employer] procedure are i n the results section. POCT-GLUCOSE METER Routine 07/03/2019 8:41 Resul ts for this PM [employer] procedure are i n the results section. POCT-GLUCOSE METER Routine 07/03/2019 5:31 Resul ts for this PM [employer] procedure are i n the results section. POCT-GLUCOSE METER Routine 07/03/2019 12:22 Resul ts for this PM [employer] procedure are i n the results section. FL ESOPHAGUS PHARNYX Routine 07/03/2019 11:25 Res ults for this AND/OR CERVICAL AM [employer] procedure ar e in the results section. FL SNIFF TEST Routine 07/03/2019 11:23 Results fo r this AM [employer] procedure are i n the results section. XR ESOPH SWALLOW MARGRET 07/03/2019 10:45 Results for this FUNCTION W/CINE VIDEO AM [employer] proced ure are in the results section. POCT-GLUCOSE METER Routine 07/03/2019 8:13 Resul ts for this AM [employer] procedure are i n the results section. PROTEIN AP Routine 07/03/2019 3:47 Results for this ELECTROPHORESIS, SERUM AM [employer] proce dure are in the results section. CBC (HEMOGRAM ONLY) Routine 07/03/2019 3:47 Resu lts for this AM [employer] procedure are i n the results section. BASIC METABOLIC PANEL STAT 07/03/2019 3:47 Re sults for this (7) AM [employer] procedure are i n the results section. MAGNESIUM STAT 07/03/2019 3:47 Results for this AM [employer] procedure are i n the results section. PROTHROMBIN TIME/INR STAT 07/03/2019 3:47 Res ults for this AM [employer] procedure are i n the results section. POCT-GLUCOSE METER Routine 07/02/2019 9:18 Resul ts for this PM [employer] procedure are i n the results section. POCT-GLUCOSE METER Routine 07/02/2019 6:06 Resul ts for this PM [employer] procedure are i n the results section. POCT-GLUCOSE METER Routine 07/02/2019 12:10 Resul ts for this PM [employer] procedure are i n the results section. POCT-GLUCOSE METER Routine 07/02/2019 7:27 Resul ts for this AM [employer] procedure are i n the results section. CBC (HEMOGRAM ONLY) Routine 07/02/2019 4:56 Resu lts for this AM [employer] procedure are i n the results section. BASIC METABOLIC PANEL STAT 07/02/2019 4:56 Re sults for this (7) AM [employer] procedure are i n the results section. MAGNESIUM STAT 07/02/2019 4:56 Results for this AM [employer] procedure are i n the results section. PROTHROMBIN TIME/INR STAT 07/02/2019 4:56 Res ults for this AM [employer] procedure are i n the results section. POCT-GLUCOSE METER Routine 07/01/2019 9:08 Resul ts for this PM [employer] procedure are i n the results section. POCT-GLUCOSE METER Routine 07/01/2019 5:25 Resul ts for this PM [employer] procedure are i n the results section. POCT-GLUCOSE METER Routine 07/01/2019 11:33 Resul ts for this AM [employer] procedure are i n the results section. POCT-GLUCOSE METER Routine 07/01/2019 8:01 Resul ts for this AM [employer] procedure are i n the results section. CBC W/PLT COUNT & AUTO STAT 07/01/2019 4:21 R esults for this DIFFERENTIAL AM [employer] procedure are i n the results section. BASIC METABOLIC PANEL Routine 07/01/2019 4:21 Re sults for this (7) AM [employer] procedure are i n the results section. CBC (HEMOGRAM ONLY) Routine 07/01/2019 4:21 Resu lts for this AM [employer] procedure are i n the results section. MAGNESIUM STAT 07/01/2019 4:21 Results for this AM [employer] procedure are i n the results section. PROTHROMBIN TIME/INR STAT 07/01/2019 4:21 Res ults for this AM [employer] procedure are i n the results section. CBC W/PLT COUNT & AUTO STAT 07/01/2019 4:21 R esults for this DIFFERENTIAL AM [employer] procedure are i n the results section. HEPATIC FUNCTION PANEL STAT 07/01/2019 4:21 R esults for this AM [employer] procedure are i n the results section. POCT-GLUCOSE METER Routine 06/30/2019 8:59 Resul ts for this PM [employer] procedure are i n the results section. POCT-GLUCOSE METER Routine 06/30/2019 4:31 Resul ts for this PM [employer] procedure are i n the results section. POCT-GLUCOSE METER Routine 06/30/2019 11:37 Resul ts for this AM [employer] procedure are i n the results section. POCT-GLUCOSE METER Routine 06/30/2019 5:56 Resul ts for this AM [employer] procedure are i n the results section. CBC W/PLT COUNT & AUTO STAT 06/30/2019 2:38 R esults for this DIFFERENTIAL AM [employer] procedure are i n the results section. CBC W/PLT COUNT & AUTO STAT 06/30/2019 2:38 R esults for this DIFFERENTIAL AM [employer] procedure are i n the results section. BLOOD GAS, ARTERIAL STAT 06/30/2019 2:38 Resu lts for this AM [employer] procedure are i n the results section. MAGNESIUM Add-On 06/30/2019 2:37 Results for this AM [employer] procedure are i n the results section. PROTHROMBIN TIME/INR STAT 06/30/2019 2:37 Res ults for this AM [employer] procedure are i n the results section. HEPATIC FUNCTION PANEL STAT 06/30/2019 2:37 R esults for this AM [employer] procedure are i n the results section. BASIC METABOLIC PANEL STAT 06/30/2019 2:37 Re sults for this (7) AM [employer] procedure are i n the results section. POCT-GLUCOSE METER Routine 06/30/2019 12:53 Resul ts for this AM [employer] procedure are i n the results section. ECHOCARDIOGRAM REPORT 06/29/2019 9:20 - SCAN PM [employer] TROPONIN I Routine 06/29/2019 8:34 Results for this PM [employer] procedure are i n the results section. BLOOD GAS, ARTERIAL STAT 06/29/2019 6:43 Resu lts for this PM [employer] procedure are i n the results section. POCT-GLUCOSE METER Routine 06/29/2019 6:20 Resul ts for this PM [employer] procedure are i n the results section. 2D ECHO W/ DOPPLER STAT 06/29/2019 2:59 Resul ts for this (CW/PW/COLOR) PM [employer] procedure are in the results section. CBC W/PLT COUNT & AUTO STAT 06/29/2019 2:27 R esults for this DIFFERENTIAL PM [employer] procedure are i n the results section. VITAMIN B12 AND FOLATE Routine 06/29/2019 2:27 R esults for this PM [employer] procedure are i n the results section. FERRITIN Routine 06/29/2019 2:27 Results for this PM [employer] procedure are i n the results section. IRON, TIBC, % SAT. Routine 06/29/2019 2:27 Resul ts for this (WITHOUT FERRITIN) PM [employer] procedure are in the results section. PROTEIN, RANDOM URINE Routine 06/29/2019 2:27 Re sults for this PM [employer] procedure are i n the results section. POTASSIUM, RANDOM Routine 06/29/2019 2:27 Result s for this URINE PM [employer] procedure are i n the results section. OSMOLALITY, URINE Routine 06/29/2019 2:27 Result s for this PM [employer] procedure are i n the results section. SODIUM, RANDOM URINE Routine 06/29/2019 2:27 Res ults for this PM [employer] procedure are i n the results section. TROPONIN I Routine 06/29/2019 2:27 Results for this PM [employer] procedure are i n the results section. CBC W/PLT COUNT & AUTO STAT 06/29/2019 2:27 R esults for this DIFFERENTIAL PM [employer] procedure are i n the results section. CT CHEST WITHOUT IV STAT 06/29/2019 1:31 Resu lts for this CONTRAST PM [employer] procedure are i n the results section. CT BRAIN WITHOUT IV STAT 06/29/2019 1:31 Resu lts for this CONTRAST PM [employer] procedure are i n the results section. POCT-GLUCOSE METER Routine 06/29/2019 12:50 Resul ts for this PM [employer] procedure are i n the results section. DRUG SCREEN, URINE, Routine 06/29/2019 10:45 COMPREHENSIVE AM [employer] PROCALCITONIN STAT 06/29/2019 10:45 Results fo r this AM [employer] procedure are i n the results section. LACTIC ACID, VENOUS STAT 06/29/2019 10:45 Resu lts for this AM [employer] procedure are i n the results section. TSH/FREE T4 IF STAT 06/29/2019 10:45 Results f or this INDICATED AM [employer] procedure are i n the results section. AMMONIA STAT 06/29/2019 10:45 Results for this AM [employer] procedure are i n the results section. RESPIRATORY PANEL SLHS Routine 06/29/2019 9:02 R esults for this AM [employer] procedure are i n the results section. RAPID INFLUENZA A&B Routine 06/29/2019 9:02 Resu lts for this SCREEN AM [employer] procedure are i n the results section. MRSA SCREEN Routine 06/29/2019 9:01 Results for this AM [employer] procedure are i n the results section. URINALYSIS W/ REFLEX Routine 06/29/2019 8:58 Res ults for this URINE CULTURE AM [employer] procedure are in the results section. BLOOD CULTURE Routine 06/29/2019 8:55 Results fo r this AM [employer] procedure are i n the results section. B-TYPE NATRIURETIC STAT 06/29/2019 8:54 Resul ts for this FACTOR (BNP) AM [employer] procedure are i n the results section. MAGNESIUM Add-On 06/29/2019 8:43 Results for this AM [employer] procedure are i n the results section. HEPATIC FUNCTION PANEL STAT 06/29/2019 8:43 R esults for this AM [employer] procedure are i n the results section. BASIC METABOLIC PANEL STAT 06/29/2019 8:43 Re sults for this (7) AM [employer] procedure are i n the results section. BLOOD CULTURE Routine 06/29/2019 8:43 Results fo r this AM [employer] procedure are i n the results section. SPUTUM CULTURE + GRAM Routine 06/29/2019 8:43 Re sults for this STAIN AM [employer] procedure are i n the results section. TROPONIN I Routine 06/29/2019 8:42 Results for this AM [employer] procedure are i n the results section. CBC W/PLT COUNT & AUTO STAT 06/29/2019 6:48 R esults for this DIFFERENTIAL AM [employer] procedure are i n the results section. CBC W/PLT COUNT & AUTO STAT 06/29/2019 6:48 R esults for this DIFFERENTIAL AM [employer] procedure are i n the results section. PT/APTT STAT 06/29/2019 6:48 Results for this AM [employer] procedure are i n the results section. BLOOD GAS, ARTERIAL Routine 06/29/2019 6:48 Resu lts for this AM [employer] procedure are i n the results section. XR CHEST 1 VIEW STAT 06/29/2019 5:52 Results for this PORTABLE/BEDSIDE AM [employer] procedure a re in the results section. after 03/13/2019 Results RHYTHM STRIP - SCAN (07/17/2019 1:24 PM [employer])Only the most recent of2 results within the time period is included. Narrative Performed At This result has an attachment that is no t available. EKG-SCANNED (07/11/2019 9:01 AM [employer]) Narrative Performed At This result has an attachment that is no t available. POC-Glucose meter (07/05/2019 6:51 AM [employer])Only the most recent of24 results within the time period is included. POC-Glucose Meter 115 (H)Comment: : TESTED 70 - 110 mg/dL [facility] AT [address], [facility] [place]: Director Style/Coroner Transport Technician ID = [id number] for QUEEN PEREZ Specimen Blood Performing Organization Address City/State/Zipcode Phone Number [facility] [address] [place] [address] CENTER XR chest 1 view portable / bedside (07/05/2019 6:11 AM [employer])Only the most recent of2 resultswithin the time period is included. Specimen Narrative Performed At FINAL REPORT [facility] INDICATION: evaluate volume status TECHNIQUE: Chest radiograph, single view, portable technique. FINDINGS / IMPRESSION: Interval extubation and removal of nasog astric tube since June 29, 2019. Prominent heart shadow without definite pulmonary venous congestion or edema. Left retrocardiac opacity may represent pleural fluid and related atelectasis. It is nonspecific. No pneumothorax. Signed: Dre Nieto MD Report Verified Date/Time:07/05/2019 07:54:47 Reading Location: [address] Reading Room Procedure Note Interface, External Ris In - 07/05/2019 7:57 AM [employer] FINAL REPORT INDICATION: evaluate volume status TECHNIQUE: Chest radiograph, single view, portable technique. FINDINGS / IMPRESSION: Interval extubation and removal of nasog astric tube since June 29, 2019. Prominent heart shadow without definite pulmonary venous congestion or edema. Left retrocardiac opacity may represent pleural fluid and related atelectasis. It is nonspecific. No pneumothorax. Signed: Dre Nieto MD Report Verified Date/Time: 07/05/2019 0 7:54:47 Reading Location: [address] Reading Room Performing Organization Address City/[facility]/Zipcode Phone Number [facility] PULMONARY FUNCTION - SCAN (07/04/2019 4:00 PM [employer]) Narrative Performed At This result has an attachment that is no t available. Blood gas, venous (07/04/2019 11:50 AM [employer]) pH, Raul 7.44 (H) 7.32 - 7.42 [facility] pCO2, Raul 54 (H) 41 - 51 mmHg [facility] pO2, Raul 69 (H) 25 - 40 mmHg [facility] O2 Sat, Raul 94.2 (H) 40.0 - 70.0 % [facility] HCO3, Raul 36 (H) 21 - 29 mmol/L [facility] Base Excess, Raul 10.0 (H) -2.0 - 3.0 mmol/L [facility] Patient Temperature 37.0 C [facility] Specimen Blood Performing Organization Address City/State/Zipcode Phone Number [facility] [address] [place] [address] CENTER Lung volumes (07/04/2019 9:43 AM [employer]) Narrative Performed At Luis Goins, EDUCATION DEAN, TILER 07/049:46 AM [facility] PFT CHARTING REPORT Infection Control/Hand Hygiene procedure s followed throughout the encounter with patient: Yes Patient Identification Method: Patient n meg verified on armband, and Medical record on armband, Is the order complete?: Yes Account ID#: [id number] Patient Name: Suki Koroma Birthdate: 1950 Age: 68 y.o.Sex: female Admission Date: 06/29/2019 Patient Status: Inpatient Reasons/Symptom for having the Test?: a history/complaint of a dyspnea Type of study/treatment ordered by physi mckenna: Lung volume, Single Breath DLCO, MIP's - Maximum Inspiratory Pressure and MEP's - Maximum Expiratory Pressure Lab Results Component Value Date HGB 8.2 (L) 07/03/2019 Ranges: Adult Male 13 - 16.8 g/dlA dult Female 12 - 15 g/dl 6 Minute Walk (read only) 07/04/201907/04/2019 Pulse 86 85 - SpO2 94 92 98 Study Date: 07/04/2019 Study Time: 936 ASSESSMENT History & Physical Mode of Arrival: Ambulatory Pulse: 85 Resp: 18SPO2: 93 %On 2 LPM/ FiO2 Pain Assessment Pain:None TESTING/THERAPEUTICS Medications ordered or required for pro cedure: N/A PT EDUCATION/INSTRUCTIONS Barriers to learning: No known barriers to learning. Learning need identified: Yes, Patient/ Family/Guradian was informed of the ordered study by the [place] Barriers to performing study or treatme nt: Patient has no known disability to perform the study or treat ment. DISCHARGE The study was completed in accordance wi th the physician's order and patient released from the lab withou t adverse outcome. MIP-MEP (07/04/2019 9:43 AM [employer]) Narrative Performed At Luis Goins RRT, TILER 07/049:46 AM [facility] PFT CHARTING REPORT Infection Control/Hand Hygiene procedure s followed throughout the encounter with patient: Yes Patient Identification Method: Patient n meg verified on armband, and Medical record on armband, Is the order complete?: Yes Account ID#: [id number] Patient Name: Suki Koroma Birthdate: 1950 Age: 68 y.o.Sex: female Admission Date: 06/29/2019 Patient Status: Inpatient Reasons/Symptom for having the Test?: a history/complaint of a dyspnea Type of study/treatment ordered by physi mckenna: Lung volume, Single Breath DLCO, MIP's - Maximum Inspiratory Pressure and MEP's - Maximum Expiratory Pressure Lab Results Component Value Date HGB 8.2 (L) 07/03/2019 Ranges: Adult Male 13 - 16.8 g/dlA dult Female 12 - 15 g/dl 6 Minute Walk (read only) 07/04/201907/04/2019 Pulse 86 85 - SpO2 94 92 98 Study Date: 07/04/2019 Study Time: 0937 ASSESSMENT History & Physical Mode of Arrival: Ambulatory Pulse: 85 Resp: 18SPO2: 93 %On 2 LPM/ FiO2 Pain Assessment Pain:None TESTING/THERAPEUTICS Medications ordered or required for pro cedure: N/A PT EDUCATION/INSTRUCTIONS Barriers to learning: No known barriers to learning. Learning need identified: Yes, Patient/ Family/Guradian was informed of the ordered study by the [place] Barriers to performing study or treatme nt: Patient has no known disability to perform the study or treat ment. DISCHARGE The study was completed in accordance wi th the physician's order and patient released from the lab withou t adverse outcome. Pulmonary Funct Lab Spirometry (07/04/2019 9:43 AM [employer]) Narrative Performed At Luis Goins RRT, [facility] 07/049:46 AM [facility] PFT CHARTING REPORT Infection Control/Hand Hygiene procedure s followed throughout the encounter with patient: Yes Patient Identification Method: Patient n meg verified on armband, and Medical record on armband, Is the order complete?: Yes Account ID#: [id number] Patient Name: Suki Koroma Birthdate: 1950 Age: 68 y.o.Sex: female Admission Date: 06/29/2019 Patient Status: Inpatient Reasons/Symptom for having the Test?: a history/complaint of a dyspnea Type of study/treatment ordered by physi mckenna: Lung volume, Single Breath DLCO, MIP's - Maximum Inspiratory Pressure and MEP's - Maximum Expiratory Pressure Lab Results Component Value Date HGB 8.2 (L) 07/03/2019 Ranges: Adult Male 13 - 16.8 g/dlA dult Female 12 - 15 g/dl 6 Minute Walk (read only) 07/04/201907/04/2019 Pulse 86 85 - SpO2 94 92 98 Study Date: 07/04/2019 Study Time: 936 ASSESSMENT History & Physical Mode of Arrival: Ambulatory Pulse: 85 Resp: 18SPO2: 93 %On 2 LPM/ FiO2 Pain Assessment Pain:None TESTING/THERAPEUTICS Medications ordered or required for pro cedure: N/A PT EDUCATION/INSTRUCTIONS Barriers to learning: No known barriers to learning. Learning need identified: Yes, Patient/ Family/Guradian was informed of the ordered study by the [place] Barriers to performing study or treatme nt: Patient has no known disability to perform the study or treat ment. DISCHARGE The study was completed in accordance wi th the physician's order and patient released from the lab withou t adverse outcome. DLCO (single breath diffusion) (07/04/2019 9:43 AM LIQUOR MERCHANT) Narrative Performed At Luis Goins RRT, TILER 07/049:46 AM [facility] PFT CHARTING REPORT Infection Control/Hand Hygiene procedure s followed throughout the encounter with patient: Yes Patient Identification Method: Patient n meg verified on armband, and Medical record on armband, Is the order complete?: Yes Account ID#: [id number] Patient Name: Suki Koroma Birthdate: 1950 Age: 68 y.o.Sex: female Admission Date: 06/29/2019 Patient Status: Inpatient Reasons/Symptom for having the Test?: a history/complaint of a dyspnea Type of study/treatment ordered by physi mckenna: Lung volume, Single Breath DLCO, MIP's - Maximum Inspiratory Pressure and MEP's - Maximum Expiratory Pressure Lab Results Component Value Date HGB 8.2 (L) 07/03/2019 Ranges: Adult Male 13 - 16.8 g/dlA dult Female 12 - 15 g/dl 6 Minute Walk (read only) 07/04/201907/04/2019 Pulse 86 85 - SpO2 94 92 98 Study Date: 07/04/2019 Study Time: 936 ASSESSMENT History & Physical Mode of Arrival: Ambulatory Pulse: 85 Resp: 18SPO2: 93 %On 2 LPM/ FiO2 Pain Assessment Pain:None TESTING/THERAPEUTICS Medications ordered or required for pro cedure: N/A PT EDUCATION/INSTRUCTIONS Barriers to learning: No known barriers to learning. Learning need identified: Yes, Patient/ Family/Guradian was informed of the ordered study by the [place] [facility] Barriers to performing study or treatme nt: Patient has no known disability to perform the study or treat ment. DISCHARGE The study was completed in accordance wi th the physician's order and patient released from the lab withou t adverse outcome. Prothrombin time/INR (07/04/2019 3:53 AM LIQUOR MERCHANT)Only the most recent of5 results within the time period is included. Protime 22.7 (H) 11.9 - 14.2 seconds [facility] INR 2.1 <=5.9 [facility] Specimen Blood Narrative Performed At Effective 11/30/2018: PT Reference Range [facility] Change New: 11.9-14.2Previous: 11.7-14.7 RECOMMENDED COUMADIN/WARFARIN INR THERAPY RANGES STANDARD DOSE: 2.0-3.0Includes: PROPHYLAXIS for venous thrombosis, systemic embolization; TREATMENT for venous thrombosis and/or pulmonary embolus. HIGH RISK: Target INR is 2.5-3.5 for patients wiht mechanical heart valves. Performing Organization Address City/[facility]/Zipcode Phone Number [address] [address] [place] Magnesium (07/04/2019 3:53 AM LIQUOR MERCHANT)Only the most recent of6 resultswithin the time period is included. Magnesium 1.7 1.6 - 2.6 mg/dL [facility] Specimen Blood Performing Organization Address City/[facility]/Zipcode Phone Number [address] [address] [place] Basic metabolic panel (07/04/2019 3:53 AM LIQU[employer] MERCHANT)Only the most recent of6 results within the time period is included. Sodium 142 136 - 145 meq/L [facility] Potassium 3.5 3.5 - 5.1 meq/L [facility] Chloride 99 98 - 107 meq/L [facility] CO2 35 (H) 22 - 29 meq/L [facility] BUN 15 7 - 21 mg/dL [facility] Creatinine 0.99 0.57 - 1.25 mg/dL [facility] Glucose 100 70 - 105 mg/dL [facility] Calcium 8.8 8.4 - 10.2 mg/dL [facility] EGFR 55Comment: ESTIMATED GFR IS mL/min/1.73 sq m [facility] NOT ACCURATE [facility] CLEARANCE IN PREDICTING GLOMERULAR FILTRATION RATE. ESTIMATED GFR IS NOT APPLICABLE FOR DIALYSIS PATIENTS. Specimen Blood Performing Organization Address City/State/Zipcode Phone Number [facility] [address] [place] [address] CENTER US Renal with Doppler (07/04/2019 2:38 AM LIQUOR MERCHANT) Specimen Narrative Performed At FINAL REPORT [facility] Renal ultrasound dated 07/04/2019 CLINICAL HISTORY: Renal dysfunction and flash edema COMPARISON: None Comment:Real-time transabdominal margo al ultrasound was performed. Right kidney measures 8.9 x 4.0 x 3.9 cm . Left kidney measures 11.3 x 5.4 x 5.1 cm . Right renal cortex measures 0.8 cm. Left renal cortex measures 1.4 cm. Renal parenchymal echogenicity: Normal No hydronephrosis, nephrolithiasis or so lid mass is seen. No cyst is identified on either kidney. Color and spectral Doppler ultrasound de monstrates a patent main renal artery and vein bilaterally. There are normal resistive indices throughout both kidneys. The bladder is decompressed. Impression: The right kidney is relatively small, a nonspecific appearance. The ultrasound appearance of the kidneys is otherwise unremarkable. There is no Doppler evidence of signific ant renovascular disease. Signed: Mark Vargas MD Report Verified Date/Time:07/04/2019 03:59:06 Procedure Note Interface, External Ris In - 07/04/2019 4:01 AM [employer]CHANT FINAL REPORT Renal ultrasound dated 07/04/2019 CLINICAL HISTORY: Renal dysfunction and flash edema COMPARISON: None Comment: Real-time transabdominal renal ultrasound was performed. Right kidney measures 8.9 x 4.0 x 3.9 cm . Left kidney measures 11.3 x 5.4 x 5.1 cm . Right renal cortex measures 0.8 cm. Left renal cortex measures 1.4 cm. Renal parenchymal echogenicity: Normal No hydronephrosis, nephrolithiasis or so lid mass is seen. No cyst is identified on either kidney. Color and spectral Doppler ultrasound de monstrates a patent main renal artery and vein bilaterally. There are normal resistive indices throughout both kidneys. The bladder is decompressed. Impression: The right kidney is relatively small, a nonspecific appearance. The ultrasound appearance of the kidneys is otherwise unremarkable. There is no Doppler evidence of signific ant renovascular disease. Signed: Mark Vargas MD Report Verified Date/Time: 07/04/2019 0 3:59:06 Performing Organization Address City/State/Zipcode Phone Number [facility] [place] esophagus pharnyx and / or cervical (07/03/2019 11:25 AM LIQUOR MERCHANT) Specimen Narrative Performed At FINAL REPORT [facility] Barium esophagogram Clinical History: recurrent PNA ? Aspira tion Discussion: Effervescent crystals, thick barium, and thin barium are given to the patient to drink, without difficulties. The esophageal motility, mucosa, caliber , and gastroesophageal junction are normal.Moderate gastroe sophageal reflux is noted. Fluoro time:1.4 minutes Number of images obtained: 14 Impression: Moderate gastroesophageal reflux Signed: Jammie Cantu MD Report Verified Date/Time:07/03/2019 14:02:37 Reading Location: [facility] [address] [place] [address] Reading Room Procedure Note Interface, External Ris In - 07/03/2019 2:42 PM [employer] MERCHANT FINAL REPORT Barium esophagogram Clinical History: recurrent PNA ? Aspira tion Discussion: Effervescent crystals, thick barium, and thin barium are given to the patient to drink, without difficulties. The esophageal motility, mucosa, caliber , and gastroesophageal junction are normal. Moderate gastroeso phageal reflux is noted. Fluoro time: 1.4 minutes Number of images obtained: 14 Impression: Moderate gastroesophageal reflux Signed: Jammie Cantu MD Report Verified Date/Time: 07/03/2019 1 4:02:37 Reading Location: [address] Reading Room Performing Organization Address [facility] Phone Number GE RIS FL sniff test (07/03/2019 11:23 AM LIQUOR MERCHANT) Specimen Narrative Performed At FINAL REPORT [address] Sniff Test Indication: diaphragm paralysis Comparison: none. Findings: Diaphragm movement during inspiration is observed under fluoroscopy. There is symmetric diaphragmatic movemen t during inspiration. No evidence of paralysis. Fluoro time: 0.5 minute Number of images obtained: 12 Impression: No evidence of diaphragm paralysis. Signed: Jammie Cantu MD Report Verified Date/Time:07/03/2019 14:01:20 Reading Location: [facility] [address] [place] [address] Reading Room Procedure Note Interface, External Ris In - 07/03/2019 2:42 PM [employer]CHANT FINAL REPORT Sniff Test Indication: diaphragm paralysis Comparison: none. Findings: Diaphragm movement during inspiration i s observed under fluoroscopy. There is symmetric diaphragmatic movemen t during inspiration. No evidence of paralysis. Fluoro time: 0.5 minute Number of images obtained: 12 Impression: No evidence of diaphragm paralysis. Signed: Jammie Cantu MD Report Verified Date/Time: 07/03/2019 1 4:01:20 Reading Location: [facility] [address] [place] [address] [employer] [facility] Reading Room Performing Organization Address [facility] Phone Number [employer] RIS [place] esoph swallow funct with cine video (07/03/2019 10:45 AM LIQUOR MERCHANT) Specimen Narrative Performed At FINAL REPORT [address] Modified barium swallow exam with speech pathology service CLINICAL HISTORY: Assess for aspiration IMPRESSION: Please see the speech pathology service report for details. Barium contrast of multiple consistencie s is given to the patient to swallow. Fluoroscopic observation is per formed during swallowing. No aspiration or penetration was observed w ith all consistencies administered. Fluoro time:2.2 min Number of images: 1 Signed: Jammie Cantu MD Report Verified Date/Time:07/03/2019 10:58:24 Reading Location: [address] Procedure Note Interface, External Ris In - 07/03/2019 2:39 PM [employer] FINAL REPORT Modified barium swallow exam with speech pathology service CLINICAL HISTORY: Assess for aspiration IMPRESSION: Please see the speech pathology service report for details. Barium contrast of multiple consistencie s is given to the patient to swallow. Fluoroscopic observation is per formed during swallowing. No aspiration or penetration was observed w ith all consistencies administered. Fluoro time: 2.2 min Number of images: 1 Signed: Jammie Cantu MD Report Verified Date/Time: 07/03/2019 1 0:58:24 Reading Location: [address] [place] Performing Organization Address City/State/Zipcode Phone Number [facility] CBC (Hemogram only) (07/03/2019 3:47 AM LIQUOR MERCHANT)Only the most recent of3 results within the time period is included. WBC 6.0 3.5 - 10.5 K/L [facility] RBC 2.85 (L) 3.93 - 5.22 M/L [facility] Hemoglobin 8.2 (L) 11.2 - 15.7 GM/DL [facility] Hematocrit 27.3 (L) 34.1 - 44.9 % [facility] MCV 95.8 (H) 79.4 - 94.8 fL [facility] MCH 28.8 25.6 - 32.2 pg [facility] 30.0 (L) 32.2 - 35.5 GM/DL [facility] RDW 14.5 (H) 11.7 - 14.4 % [facility] Platelets 242 150 - 450 K/CU MM [facility] MPV 10.5 9.4 - 12.3 fL [facility] nRBC 0 0 - 0 /100 WBC [facility] Specimen Blood Performing Organization Address City/[facility]/Zipcode Phone Number [facility] [address] [place] [address] [place] Protein electrophoresis, serum (07/03/2019 3:47 AM LIQUOR MERCHANT) Albumin Fraction 3.0 (L) 3.5 - 5.5 g/dL [facility] Alpha 1 Fraction 0.3 0.2 - 0.4 g/dL [facility] ER Alpha 2 Fraction 0.9 0.5 - 0.9 g/dL [facility] ER Beta Fraction 0.8 0.6 - 1.1 g/dL [facility] Gamma Globulin Fraction 0.5 (L) 0.7 - 1.7 g/dL [facility] ER Interpretation Total protein and [facility] albumin decreased. Alpha [facility] globulin percentages increased. This suggests an acute phase response. Gamma globulins decreased. Pathologist: Jody Nance MD [facility] (electronic signature) [facility] Protein, Total 5.5 (L) 6.0 - 8.3 gm/dL [facility] ER Specimen Blood Performing Organization Address City/State/Zipcode Phone Number [facility] [address] [place] [address] [place] CBC with platelet count + automated diff (07/01/2019 4:21 AM LIQUOR MERCHANT)Only the most recent of4 resultswithin the time period is included. WBC 12.4 (H) 3.5 - 10.5 K/L [facility] RBC 2.99 (L) 3.93 - 5.22 M/L [facility] Hemoglobin 8.4 (L) 11.2 - 15.7 GM/DL [facility] Hematocrit 28.8 (L) 34.1 - 44.9 % [facility] MCV 96.3 (H) 79.4 - 94.[address] [facility] MCH 28.1 25.6 - 32.2 [address] [facility] MCHC 29.2 (L) 32.2 - 35.5 GM/DL [facility] RDW 14.9 (H) 11.7 - 14.4 % [facility] Platelets 283 150 - 450 K/CU MM [facility] MPV 11.0 9.4 - 12.3 f[address] [facility] nRBC 0 0 - 0 /100 WBC [facility] % Neutros 87 % [facility] % Lymphs 6 % [facility] % Monos 6 % [facility] % Eos 0 % [facility] % Baso 0 % [facility] # Neutros 10.83 (H) 1.56 - 6.13 K/L [facility] # Lymphs 0.75 (L) 1.18 - 3.74 K/L [facility] # Monos 0.80 (H) 0.24 - 0.36 K/L [facility] # Eos 0.00 (L) 0.04 - 0.36 K/L [facility] # Baso 0.00 (L) 0.01 - 0.08 K/L [facility] Immature 0 0 - 1 % [facility] Granulocytes-Relative [facility] Specimen Blood Performing Organization Address [facility]/Zipcode Phone Number [address] [address] [place] Hepatic function panel (07/01/2019 4:21 AM LIQU[employer] MERCHANT)Only the most recent of3 results within the time period is included. Protein, Total 6.2 6.0 - 8.3 gm/dL [facility] Albumin 3.6 3.5 - 5.0 g/dL [facility] Total Bilirubin 0.3 0.2 - 1.2 mg/dL [facility] Bilirubin, Direct 0.2 0.1 - 0.5 mg/dL [facility] Alkaline Phosphatase 45 40 - 150 U/L [facility] AST 10 5 - 34 U/L [facility] ALT 8 6 - 55 U/L [facility] Specimen Blood Performing Organization Address City/[facility] Hospital[facility] Phone Number [address] [address] [place] Blood gas, arterial (06/30/2019 2:38 AM LIQUOR MERCHANT)Only the most recent of3 results within the time period is included. pH, Arterial 7.41 7.35 - 7.45 [facility] pCO2, Arterial 43 35 - 45 mmHg [facility] pO2, Arterial 50 (L) 80 - 90 mmHg [facility] O2 Sat, Arterial 86.4 (L) 96.0 - 97.0 % [facility] HCO3, Arterial 26 21 - 29 mmol/L [facility] Base Excess, Arterial 1.3 -2.0 - 3.0 mmol/L [facility] Patient Temperature 36.7 C [facility] FIO2 40.0 % [facility] Specimen Blood, Arterial Performing Organization Address [facility] Hospitalcowi Phone Number [facility] [address] [place] [address] [place] ECHOCARDIOGRAM REPORT - SCAN (06/29/2019 9:20 PM [employer]QU[employer] MERCHANT) Narrative Performed At This result has an attachment that is no t available. Troponin I (06/29/2019 8:34 PM [employer]QU[employer] MERCHANT)Only the most recent of3 resultswithin the time period is included. Troponin I 0.02 0.00 - 0.03 ng/mL [facility] Specimen Blood Narrative Performed At Troponin I (TnI) levels must be interpreted [facility] in the context of the presenting symptoms and the clinical findings. Elevated TnI levels indicate myocardial damage, but are not specific for ischemic heart disease. Elevated TnI levels are seen in patients with other cardiac conditions (including myocarditis and congestive heart failure), and slight TnI elevations occur in patients with other conditions, including sepsis, renal failure, acidosis, acute neurological disease, and persistent tachyarrhythmia. Performing Organization Address [facility] Hospitalcode Phone Number [address] [address] [place] 2D Echo W/Doppler(CW/PW/Color) (06/29/2019 2:59 PM [employer]QU[employer] MERCHANT) Ejection Fraction [facility] ECHO HEAR [facility] Specimen Narrative Performed At Transthoracic Echocardiography Report (T TE) [facility] ECHO HEARTLAB [facility] Demographics Patient Name Barbara KOROMA of Study 06/29/2019 [id number] GenderFem maame Visit Number [id number] RaceUnkn own [id number] m Number [id number] Number Date of Birth1950 Referring Physician Melanie Cm Age68 year(s) Vehicle And Equipment Cleaner RENE Benitoer,Yvon Todd [facility] Physician Procedure Type of Study TTE procedure:2DECHO W DOPPLER(CW/PW/COLOR) (STAT) Indications:Shortness of breath. Clinical History HGB 9.0 HCT 29.5 % Respiratory failure Heart Failure COPD Contrast Medium: Definity. Height: 59 inches Weight: 84.37 kg (186 lbs) BSA: 1.79 m^2 BMI: 37.57 kg/m^2 HR: 75 bpm BP: 102/54 mmHg Summary LV endocardium is adequately visualized with IV ultrasound enhancing agent. The left ventricle is chamber size (by vol index) is normal (female - LVED vol - 29-61ml/m2). No evidence of LV hypertrophy. All segments are hyperdynamic. Global LV systolic function hyperdynamic . LVEF by Wallace's method of disk assessment is increased (>70%) . Increased (cardiac index 3.5-4.0 L/min/m2) cardiac output state at rest is noted. LV diastolic function is indeterminate. Mild tricuspid regurgitation. Estimated peak systolic PA pressure is 40-45 mmHg . The estimated RA pressure by IVC dynamics 11-15mmHg . A trivial pericardial effusion is prese nt . Mild aortic stenosis. mmHg/Mean PG 14 m mHg. Previous Study No prior studies available for comparis on. Signature Findings Technical Quality: Technically difficult exam. Left Ventricle LV endocardium is adequately visualized with IV ul trasound enhancing agent. The left ventr icle is ch kevin size (by vol index) is normal (fem maame - LV ED vol - 29-61ml/m2). No evidence of LV hy pertrophy. All segments are hyperdynamic . Global LV systolic function hyperdynamic . LVEF by Si mpson's method of disk assessment is inc reased (> 70%) . Increased (cardiac index 3.5-4.0 L/min/m2) ca rdiac output state at rest is noted. LV diastolic fu nction is indeterminate. Left AtriumLA size is severely enlarged (>48 ml/m2) . Right VentricleThe right ventricular chamber size and systolic fu nction are within normal limits. Right Atrium RA size is normal. Aortic Valve Mild aortic regurgitation. Mi ld AoV cusp thickening. Ao V cusp mobility is mildly decreased . Mi ld aortic stenosis. mmHg/Mean PG 14 mmHg . Mitral Valve Mild mitral annular calcification. Mi ld MV leaflet calcification. MV gradients are mildly increased in part d ue to an emia and mitral annular calcification . Mean PG 6. 37 mmHg at a HR of 81 bpm. Tricuspid ValveTV structure is normal. Mi ld tricuspid regurgitation. Es timated peak systolic PA pressure is 40- 45 mmHg . Pulmonic Valve PV is not well visualized; function appears normal by Doppler visualized. AortaAortic root size (SInus of Valsalva diameter) i s no rmal . PericardiumA trivial pericardial effusion is present . IVC/SVC/PA/PV/PleuralThe estimated RA pressure by IVC dynamics 11-15mmHg . Chambers/Structures Left Atrium LA Volume: 88.57 ml LA Area: 27.31 cm^2 LA Vol. Index: 49 ml/m^2 Left Ventricle LVIDd: 3.79 cm LV Septum Diastolic: 1.07 cm LV PW Diastolic: 0.96 cm LVEDV Wallace's:68.34 ml LVESV Wallace's:18.05 ml LVEF Wallace's: 73.6 %LVEDV I: 38 ml/m^2 LVESVI: 10 ml/m^2 LVOT Diameter: 1.72 cm Right Atrium RA Vol. (Sngl Plane): 4 5.2 ml Aorta Ao Root S of Denise.: 2.77 cm Doppler/Quantitative Measurements Mitral Valve Mean Velocity: 1.17 m/s Mean Gradient: 6.37 mmHg Area (continuity): 2.08 cm^2 MV VTI: 41 .09 cm MV Baldev. Peak: 2.07 m/s Tissue Doppler E' Lateral Velocity: 0.04 m/s Aortic Valve Peak Velocity: 2.75 m/sMean Velocity: 1.76 m/s Peak Gradient: 30.29 mmHgMean Gradient: 14.55 mmHg AV Area (continuity): 1.58 cm^2 AV VTI: 54.18 cm AR P1/2t: 421.8 msec AV DVI: 0.68 LVOT Peak Velocity: 1.6 m/s Peak Gradient: 10.27 mmHg Mean Velocity: 1.05 m/sMean Gradient : 5.3 mmHg LVOT Diameter: 1.72 cm LVOT VTI: 36.87 cm LVOT Area: 2.32 cm^2 LVOT SV:85.62 ml LVOT CO: 6.42 l/minLVOT CI: 3.59 l/min/m^2 Tricuspid Valve TR Velocity: 2.75 m/s TR Gradient: 30.22 mmHg Procedure Note Interface, External Ris In - 06/29/2019 4:41 PM [employer] Transthoracic Echocardiography Report (TTE) Demographics Patient Name SUKI KOROMA Date of Study 06/29/2019 Gender Female Visit Number [id number] Race Unknown Room [place] [address] Number Date of 1950 Referri Physician Melanie Cm Age 68 year(s) Sonogra pher Abdiel Bruno, [facility] Supervisor Wound Liane Beach, Interpr eticelio Todd [facility] Trena steve MD Procedure Type of Study TTE procedure:2DECHO W DOPPLE R(CW/PW/COLOR) (STAT) Indications:Shortness of breath. Clinical History HGB 9.0 HCT 29.5 % Respiratory failure Heart Failure COPD Contrast Medium: Definity. Height: 59 inches Weight: 84.37 kg (186 lbs) BSA: 1.79 m^2 BMI: 37.57 kg/m^2 HR: 75 bpm BP: 102/54 mmHg Summary LV endocardium is adequately visualized with IV ultrasound enhancing agent. The left ventricle is chamber si ze (by vol index) is normal (female - LVED vol - 29-61ml/m2). No evidence o f LV hypertrophy. All segments are hyperdynamic. Global LV systolic functi on hyperdynamic . LVEF by Wallace's method of disk assessment is increased (>70%) . Increased (cardiac index 3.5-4.0 L/min/m2) cardiac output state at rest is noted. LV diastolic function is indeterminate. Mild tricuspid regurgitation. Estimated peak systolic PA pressure is 40-45 mmHg . The estimated RA pressure by IVC dynami cs 11-15mmHg . A trivial pericardial effusion is prese nt . Mild aortic stenosis. mmHg/Mean PG 14 m mHg. Previous Study No prior studies available for comparis on. Signature Findings Technical Quality: Technically difficult exam. Left Ventricle LV endocardium i s adequately visualized with IV ultrasound enhan cing agent. The left ventricle is chamber size (by vol index) is normal (female - LVED vol - 29-61 ml/m2). No evidence of LV hypertrophy. All segments are hyperdynamic. Global LV systolic func tion hyperdynamic . LVEF by Wallace's method of disk assessment is increased (>70%) . Increas ed (cardiac index 3.5-4.0 L/min/m2) cardiac output s currie at rest is noted. LV diastolic function is inde terminate. Left Atrium LA size is sever cassia enlarged (>48 ml/m2) . Right Ventricle The right ventri cular chamber size and systolic function are wit hin normal limits. Right Atrium RA size is yulissa l. Aortic Valve Mild aortic regu rgitation. Mild AoV cusp th ickening. AoV cusp mobilit y is mildly decreased . Mild aortic sten osis. mmHg/Mean PG 14 mmHg. Mitral Valve Mild mitral jroge lar calcification. Mild MV leaflet calcification. MV gradients are mildly increased in part due to anemia and gregory l annular calcification . Mean PG 6.37 mmHg at a H R of 81 bpm. Tricuspid Valve TV structure is normal. Mild tricuspid r egurgitation. Estimated peak s ystolic PA pressure is 40-45 mmHg . Pulmonic Valve PV is not well v isualized; function appears normal by Doppler visua lized. Aorta Aortic root size (SInus of Valsalva diameter) is normal . Pericardium A trivial perica rdial effusion is present . IVC/SVC/PA/PV/Pleural The estimated RA pressure by IVC dynamics 11-15mmHg . Chambers/Structures Left Atrium LA Volume: 88.57 ml LA Area: 27.31 cm^2 LA Vol. Index: 49 ml/m^2 Left Ventricle LVIDd: 3.79 cm LV Septum Diastolic: 1.07 cm LV PW Diastolic: 0.96 cm LVEDV Wallace's:68.34 ml LVESV Wallace's:18.05 ml LVEF Wallace's: 73.6 % LVEDVI: 38 ml/m^2 LVESVI: 10 ml/m^2 LVOT Diameter: 1.72 cm Right Atrium RA Vol. (Sngl Plane): 45.2 ml Aorta Ao Root S of Denise.: 2.77 cm Doppler/Quantitative Measurements Mitral Valve Mean Velocity: 1.17 m/s Mean Gradient: 6.37 mmHg Area (continuity): 2.08 cm^2 MV VTI: 41.09 cm MV Baldev. Peak: 2.07 m/s Tissue Doppler E' Lateral Velocity: 0.04 m/s Aortic Valve Peak Velocity: 2.75 m/s Mean Velocity: 1.76 m/s Peak Gradient: 30.29 mmHg Mean Gradient: 14.55 mmHg AV Area (continuity): 1.58 cm^2 AV VTI: 54.18 cm AR P1/2t: 421.8 msec AV DVI: 0.68 LVOT Peak Velocity: 1.6 m/s Peak Gradient: 10.27 mmHg Mean Velocity: 1.05 m/s Mean Gradient: 5.3 mmHg LVOT Diameter: 1.72 cm LVOT VTI: 36.87 cm LVOT Area: 2.32 cm^2 LVOT SV:85.62 ml LVOT CO: 6.42 l/min LVOT CI: 3.59 l/min/m^2 Tricuspid Valve TR Velocity: 2.75 m/s TR Gradient: 30.22 mmHg Performing Organization Address [facility] Phone Number [facility] MKCKESSON CPA Vitamin B12 and Folate (06/29/2019 2:27 PM [employer]QU[employer] MERCHANT) Vitamin B12 814 213 - 816 pg/mL [facility] Folate 8.9 >=7.0 ng/mL [facility] Specimen Blood Performing Organization Address [facility] Phone Number [address] [address] [place] Iron, TIBC, % sat. (without ferritin) (06/29/2019 2:27 PM [employer]CHANT) Iron 35.0 (L) 40.0 - 160.0 ug/dL [facility] TIBC 345 250 - 450 ug/dL [facility] Iron % Saturation 10 (L) 20 - 55 % [facility] Specimen Blood Performing Organization Address [facility] Phone Number [address] [address] [place] Sodium, random urine (06/29/2019 2:27 PM [employer] MERCHANT) Sodium Urine <20 meq/L [facility] Specimen Urine Narrative Performed At Reference Range: No Normals [facility] Performing Organization Address [facility] Phone Number [address] [address] [place] Protein, random urine (06/29/2019 2:27 PM [employer] MERCHANT) Protein, Urine 18 (H) 0 - 14 mg/dL [facility] Specimen Urine Performing Organization Address [facility] Phone Number [address] [address] [place] Potassium, random urine (06/29/2019 2:27 PM [employer] MERCHANT) Potassium Urine 83.2 meq/L [facility] Specimen Urine Narrative Performed At Reference Range: No Normals [facility] Performing Organization Address City/[facility] Phone Number [address] [address] [place] Osmolality, urine (06/29/2019 2:27 PM [employer] MERCHANT) Osmolality, Ur 462 40-1,400 mOsm/kg [facility] Specimen Urine Performing Organization Address [facility]/Zipcode Phone Number [address] [address] [place] Ferritin (06/29/2019 2:27 PM [employer] MERCHANT) Ferritin 79 5 - 275 ng/mL [facility] Specimen Blood Performing Organization Address [facility] Phone Number [address] [address] [place] [address] brain without IV contrast (06/29/2019 1:31 PM [employer] MERCHANT) Specimen Narrative Performed At FINAL REPORT [employer] [facility] CT, BRAIN, WITHOUT CONTRAST INDICATION: Stroke, follow up h/o hemorrhagic storke TECHNIQUE: Noncontrast axial imaging was obtained from the vertex to the skull base. Axial images were recons tructed using a bone algorithm. DOSE REDUCTION: Dose modulation, iterati ve reconstruction, and/or weight-based adjustment of the mA/kV was utilized to reduce the radiation dose to as low as reasonably a chievable. COMPARISON: None. FINDINGS: Cerebral parenchyma: Diffuse parenchymal volume loss. No recent infarct or hemorrhage. Midline structures: Normally positioned. Cerebellum and brainstem: Commensurate v olume loss. Ventricles: Normal volume. Extra-axial spaces: Unremarkable. Calvarium and skull base: Intact. Paranasal sinuses and mastoid air cells: Visible chambers are clear. Orbital contents: Included portions unre markable. Additional findings: None. IMPRESSION: Chronic involutional changes without acu te intracranial abnormality. If there is persistent clinical concern for intracranial pathology, MR examination is recommended for furthe r characterization. Signed: JR Ochoa Robert MD Report Verified Date/Time:06/29/2019 13:31:59 Reading Location: [address] Room Procedure Note Interface, External Ris In - 06/29/2019 1:34 PM [employer]CHANT FINAL REPORT CT, BRAIN, WITHOUT CONTRAST INDICATION: Stroke, follow up h/o hemorrhagic storke TECHNIQUE: Noncontrast axial imaging was obtained from the vertex to the skull base. Axial images were recons tructed using a bone algorithm. DOSE REDUCTION: Dose modulation, iterati ve reconstruction, and/or weight-based adjustment of the mA/kV was utilized to reduce the radiation dose to as low as reasonably a chievable. COMPARISON: None. FINDINGS: Cerebral parenchyma: Diffuse parenchymal volume loss. No recent infarct or hemorrhage. Midline structures: Normally positioned. Cerebellum and brainstem: Commensurate v olume loss. Ventricles: Normal volume. Extra-axial spaces: Unremarkable. Calvarium and skull base: Intact. Paranasal sinuses and mastoid air cells: Visible chambers are clear. Orbital contents: Included portions unre markable. Additional findings: None. IMPRESSION: Chronic involutional changes without acu te intracranial abnormality. If there is persistent clinical concern for intracranial pathology, MR examination is recommended for furthe r characterization. Signed: JR Ochoa Robert MD Report Verified Date/Time: 06/29/2019 1 3:31:59 Reading Location: [address] Performing Organization Address City/State/Zipcode Phone Number [facility] chest without IV contrast (06/29/2019 1:31 PM [employer]) Specimen Narrative Performed At FINAL REPORT [facility] TECHNIQUE: CT scan of the chest WITHOUT intravenous contrast. Dose modulation, iterative reconstruction, an d/or weight-based adjustment of the mA/kV was utilized to reduce the radiation dose to as low as reasonably achievable. INDICATION: Pneumonia. COMPARISON: None. FINDINGS: ABSENCE OF INTRAVENOUS CONTRAST DECREASE S SENSITIVITY FOR DETECTION OF FOCAL LESIONS AND VASCULAR PATHOLOGY. LINES/TUBES: Endotracheal tube with tip below the clavicles and above the shamir. NG tube with tip in the tomasa ilda body. LUNGS AND AIRWAYS: Punctate right upper lobe calcified granuloma. Patchy opacities in the dependent portio ns of both lungs. There are both lungs, there are interstitial promi nence and groundglass opacity. Some more rounded groundglass o pacities measure up to 1 cm on coronal image 43. PLEURA: Small bilateral pleural effusion s. HEART AND MEDIASTINUM: The visualized th yroid gland is normal. No significant mediastinal, hilar, or axill estrellita lymphadenopathy. The left atrium is enlarged. Marked calcification of the ascending thoracic aorta and aortic arch. Moderate calcific ation of the lower portion of the descending thoracic aorta. Marked ca lcification of the coronary arteries. Calcification of the aortic an nulus. SOFT TISSUES AND BONES: Moderate degener ative disc changes of the visualized spine with several posterior disc osteophyte complexes of the partially visualized lower cervical spine. There is likely anterior bony fusion of the T5, T6, and T7 vertebral bodies. UPPER ABDOMEN: Unremarkable. IMPRESSION: 1.The patchy opacities in the dependent portions of both lungs are concerning for aspiration. Pneumonia is in the differential. 2.Additional bilateral groundglass and i nterstitial opacities are concerning for pulmonary edema. 3.Since some of these groundglass opacit ies are slightly rounded, a follow-up CT of the chest is recommended in 3-6 months to document resolution and exclude neoplasm. Signed: Darron Tanner MD Report Verified Date/Time:06/29/2019 14:36:33 Reading Location: [facility] Reading Room - [place] [address] Procedure Note Interface, External Ris In - 06/29/2019 2:38 PM [employer] FINAL REPORT TECHNIQUE: CT scan of the chest WITHOUT intravenous contrast. Dose modulation, iterative reconstruction, an d/or weight-based adjustment of the mA/kV was utilized to reduce the radiation dose to as low as reasonably achievable. INDICATION: Pneumonia. COMPARISON: None. FINDINGS: ABSENCE OF INTRAVENOUS CONTRAST DECREASE S SENSITIVITY FOR DETECTION OF FOCAL LESIONS AND VASCULAR PATHOLOGY. LINES/TUBES: Endotracheal tube with tip below the clavicles and above the shamir. NG tube with tip in the tomasa ilda body. LUNGS AND AIRWAYS: Punctate right upper lobe calcified granuloma. Patchy opacities in the dependent portio ns of both lungs. There are both lungs, there are interstitial promi nence and groundglass opacity. Some more rounded groundglass o pacities measure up to 1 cm on coronal image 43. PLEURA: Small bilateral pleural effusion s. HEART AND MEDIASTINUM: The visualized th yroid gland is normal. No significant mediastinal, hilar, or axill estrellita lymphadenopathy. The left atrium is enlarged. Marked calcification of the ascending thoracic aorta and aortic arch. Moderate calcific ation of the lower portion of the descending thoracic aorta. Marked ca lcification of the coronary arteries. Calcification of the aortic an nulus. SOFT TISSUES AND BONES: Moderate degener ative disc changes of the visualized spine with several posterior disc osteophyte complexes of the partially visualized lower cervical spine. There is likely anterior bony fusion of the T5, T6, and T7 vertebral bodies. UPPER ABDOMEN: Unremarkable. IMPRESSION: 1.The patchy opacities in the dependent portions of both lungs are concerning for aspiration. Pneumonia is in the differential. 2.Additional bilateral groundglass and i nterstitial opacities are concerning for pulmonary edema. 3.Since some of these groundglass opacit ies are slightly rounded, a follow-up CT of the chest is recommended in 3-6 months to document resolution and exclude neoplasm. Signed: Darron Tanner MD Report Verified Date/Time: 06/29/2019 1 4:36:33 Reading Location: [facility] Reading Room - [place] [address] Performing Organization Address City/State/Zipcode Phone Number GE RIS Procalcitonin (06/29/2019 10:45 AM [employer]CHANT) Procalcitonin 2.07 (H) <0.05 ng/mL [facility] Specimen Blood Narrative Performed At SEPSIS RISK (ng/mL) [facility] Low:0.05-0.50 Intermediate: 0.51-2.00 High: >=2.01 Performing Organization Address City/State/Zipcode Phone Number [facility] [address] [place] [address] C[place] TSH/Free T4 If Indicated (06/29/2019 10:45 AM [employer]QU[employer] MERCHANT) TSH 0.42 0.35 - 4.94 uIU/mL [facility] Specimen Blood Performing Organization Address City/[facility]/Zipcode Phone Number [facility] [address] [place] [address] [place] Lactic acid, venous (06/29/2019 10:45 AM [employer]) Lactate, Venous 1.4Comment: Specimen 0.5 - 2.2 mmol/L [facility] markedly hemolyzed [facility] Specimen Blood Performing Organization Address City/[facility]/Zipcode Phone Number [address] [address] [place] Drug screen, urine, comprehensive (06/29/2019 10:45 AM [employer]CHANT) Specimen Urine Narrative Performed At This result has an attachment that is no t available. Ammonia (06/29/2019 10:45 AM [employer]QU[employer] MERCHANT) Ammonia 69Comment: Specimen moderately 18 - 72 mol/L [facility] Spec[facility] Blood Performing Organization Address City/[facility]/Zipcode Phone Number [address] [address] [place] Respiratory Panel [facility] (06/29/2019 9:02 AM [employer] MERCHANT) Human Metapneumovirus Not detected Not detected, [facility] Rhinovirus Not detected Not detected, [facility] Influenza A Not detected Not detected, [facility] INFLUENZA A (NO SUBTYPE) [facility] Influenza A subtype [facility] Influenza A Subtype H3 [facility] Influenza A Subtype H1-2009 [facility] Influenza B Not detected Not detected, [facility] Respiratory Syncytial Virus Not detected Not detected, [facility] Parainfluenza Virus 1 Not detected Not detected, [facility] Parainfluenza Virus 2 Not detected Not detected, [facility] Parainfluenza virus 3 Not detected Not detected, [facility] Parainfluenza Virus 4 Not detected Not detected, [facility] Adenovirus Not detected Not detected, [facility] Coronavirus 229E Not detected Not detected, [facility] Coronavirus HKU1 Not detected Not detected, [facility] Coronavirus NL63 Not detected Not detected, [facility] Coronavirus OC43 Not detected Not detected, [facility] Bordetella Pertussis Not detected Not detected, [facility] Chlamydophila Pneumoniae Not detected Not detected, [facility]ocal [facility] Mycoplasma Pneumoniae Not detected Not detected, [facility] Specimen Nasopharyngeal Narrative Performed At Other viruses and bacteria not targeted by [facility] this PCR panel cannot be excluded; therefore clinical correlation and follow up of serology, culture results, and other molecular studies is required. The results are not intended to be used as the sole means for clinical diagnosis or patient management decisions. This sample was tested at the [facility] using the [employer] FilmArray Respiratory Panel. It is FDA cleared and has been verified and approved by the [facility] for clinical use on nasopharyngeal swab specimens. The performance of the FilmArray RP has not been established in individuals who received influenza vaccine.Recent administration of a nasal influenza vaccine may cause false positive results for Influenza A and/or Influenza B. Performing Organization Address City/State/Zipcode Phone Number [facility] [address] [place] [address] CENTER Rapid Influenza A&B Screen (06/29/2019 9:02 AM LIQU[employer] MERCHANT) Rapid Influenza A Antigen Negative Negative, Inconclusive [facility] Rapid influenza B Antigen Negative Negative, Inconclusive [facility] Specimen Nasal Performing Organization Address City/State/Zipcode Phone Number [facility] [address] [place] [address] [place] MRSA screen (06/29/2019 9:01 AM [employer]QU[employer] MERCHANT) Result No MRSA isolated [facility] Specimen Nasal Performing Organization Address [facility]/Zipcode Phone Number [facility] [address] [place] [address] [place] Urinalysis w/Microscopic + Reflex to Culture (06/29/2019 8:58 AM LIQU[employer] MERCHANT) Color, UA Yellow [facility] Clarity, UA Hazy [facility] Specific [place], UA 1.019 1.001 - 1.035 [facility] pH, UA 5.5 5.0 - 8.0 [facility] Protein, UA 10 mg/dL (A) Negative [facility] Glucose, UA Negative Negative [facility] Ketones, UA Negative Negative [facility] Bilirubin, UA Negative Negative [facility] Blood, UA Moderate (A) Negative [facility] Nitrite, UA Negative Negative [facility] Leukocytes, UA Trace (A) Negative [facility] Urobilinogen, UA 0.2 0.2 - 1.0 mg/dL [facility] RBC, UA 65 /HPF [facility] WBC, UA 0 /HPF [facility] Squam Epithel, UA 2 /HPF [facility] Hyaline Casts, UA 55 /LPF [facility] Specimen Source [facility] Specimen Urine Performing Organization Address [facility] Phone Number [address] [address] [place] Blood Culture - Routine (Right Venipuncture) (06/29/2019 8:55 AM [employer]QU[employer] MERCHANT)Only the most recent of2 resultswithin the time period is included. Result No growth in 5 days [facility] Specimen Blood Performing Organization Address [facility]/Zipcode Phone Number [address] [address] [place] B-type Natriuretic Factor (BNP) (06/29/2019 8:54 AM [employer]QU[employer] MERCHANT) BNP 348 (H) 0 - 100 pg/mL [facility] Specimen Blood Performing Organization Address [facility]/Zipcode Phone Number [address] [address] [place] Sputum Culture + Gram Stain (06/29/2019 8:43 AM LIQUOR MERCHANT) Result 1+ Normal respiratory pedro [facility] Gram Stain Result 4+ White blood cells seen [facility] Gram Stain Result 0-5 epithelial cells [facility] Gram Stain Result <1+ gram positive cocci in [facility] [place] Specimen Sputum Performing Organization Address City/[facility]/Zipcode Phone Number [address] [address] [place] PT/aPTT (06/29/2019 6:48 AM LIQU[employer] MERCHANT) Protime 28.2 (H) 11.9 - 14.2 seconds [facility] INR 2.8 <=5.9 [facility] PTT 45.6 (H) 22.5 - 36.0 seconds [facility] Specimen Blood Narrative Performed At Effective 11/30/2018: PT Reference Range [facility] Change New: 11.9-14.2Previous: 11.7-14.7 RECOMMENDED COUMADIN/WARFARIN INR THERAPY RANGES STANDARD DOSE: 2.0-3.0Includes: PROPHYLAXIS for venous thrombosis, systemic embolization; TREATMENT for venous thrombosis and/or pulmonary embolus. HIGH RISK: Target INR is 2.5-3.5 for patients wiht mechanical heart valves. Performing Organization Address City/State/Zipcode Phone Number [facility] [address] [place], [place] [phone] CENTER after 03/13/2019 Insurance Payer Benefit Plan / Subscriber ID Type Phone Address Group [employer] - MEDICARE [employer] MEDICARE HMO xxxxxxxx [id number] [place] [address] (Home) [id number] [place] [address] Advance Directives For more information, please contact:[facility] [place] [address] [phone] Code Status Date Activated Date Inactivated Comments Full Code 06/29/2019 5:46 AM 07/05/2019 4:27 PM This code status was determined by: Patient
--- OUTSIDE RECORDS SUMMARY | 2020-03-13 00:11 | XMS REPORT | Continuity of Care Document ---
:1950 Author Organization [employer] Care Team Providers Name Role Phone [employer] Unavailable Un available Problems Problem Status Onset Classification Date Comments Sourc e Date Reported RESPIRATORY Active 07/06/19 [facility] FAILURE 00 Acute hypoxemic Active Problem 07/14/2019 [facility] and hypercapnic respiratory failure Acute on chronic Active Problem 07/14/2019 [facility] diastolic heart failure (disorder) Anemia (disorder) Active Problem 07/14/2019 [facility] Atrial Active Problem 07/14/2019 [facility] est fibrillation (disorder) Atrial Active Problem 07/14/2019 [facility] est fibrillation with rapid ventricular response (disorder) Chronic kidney Active Problem 07/14/2019 [facility] disease stage 3 (disorder) Hyperlipidemia Active Problem 07/14/2019 [facility] (disorder) Hypertensive Active Problem 07/14/2019 [facility] disorder, systemic arterial (disorder) Iron deficiency Active Problem 07/14/2019 [facility] anemia (disorder) Obesity Active Problem 07/14/2019 [facility] est (disorder) Obstructive sleep Active Problem 07/14/2019 [facility] apnea syndrome (disorder) Physical Active Problem 07/14/2019 [facility] est deconditioning (finding) Pneumonia Active Problem 07/14/2019 [facility] est (disorder) Serratia Active Problem 07/14/2019 Problem [facility] est (organism) added by Discern Expert. RESPIRATORY Active [facility] FAILURE, UNSP, UNSP W HYPOXI Medications Medication Details Route Status Patient Ordering Order Source Instructions Provider Date Famotidine 40 MG 40 mg = 1 Active Oral Tablet tab, PO, 2019 [Pepcid] Daily, 0 Refill(s) Furosemide 40 MG 40 mg = 1 Active Oral Tablet tab, PO, 2019 Daily, 0 Refill(s) Acetaminophen 325 1 tab, PO, Active MG / Hydrocodone Q4H, PRN Pain 2019 [facility] Bitartrate 5 MG Score 4-6, Oral Tablet .., 0 Refill(s) Acetaminophen 325 650 mg = 2 Active MG Oral Tablet tab, PO, Q4H, 2019 [facility] PRN Pain Score 1-3, 0 Refill(s) Albuterol 0.833 3 mL, NEB, Active MG/ML / Ipratropium QID, PRN 2019 [facility] Bradner 0.167 MG/ML Respiratory Inhalant Solution Pathway, 0 [DuoNeb] Refill(s) Aspirin 81 MG 81 mg = 1 Active Chewable Tablet tab, PO, [facility] Daily, 0 Refill(s) ciprofloxacin 500 500 mg = 1 Active mg oral tablet tab, PO, 2019 [facility] [id number], 0 Refill(s) ferrous sulfate 325 325 mg = 1 Active H MG Oral Tablet tab, PO, TID, 2019 0 Refill(s) insulin lispro 100 4 unit, Active units/mL injectable SUB-Q, 2019 [facility] solution Sliding Scale, PRN Blood Glucose Results, 0 Refill(s) Melatonin 3 MG 3 mg = 1 tab, Active Extended Release PO, Bedtime, 2019 [facility] Tablet 0 Refill(s) predniSONE 20 mg 20 mg = 1 Active oral tablet tab, PO, 2019, 0 Refill(s) Famotidine 40 MG Notes: (Same Inactive H Oral Tablet as: Pepcid) 2019[facility] [Pepcid] benzonatate 100 mg 100 mg = 1 Active oral capsule cap, PO, TID, 2019 [facility] PRN Cough/Congest ion, 0 Refill(s) Budesonide = 2 mL, NEB, Active BID, 0 2019 Refill(s) Budesonide 0.16 2 puff, Active MG/ACTUAT / INHALATION, 2019 [facility] formoterol fumarate BID, # 6 gm, 0.0045 MG/ACTUAT 0 Refill(s) Metered Dose Inhaler Famotidine 20 MG 20 mg = 1 Inactive Oral Tablet tab, PO, 2019, 0 Refill(s) arformoterol 0.0075 = 1 ea, NEB, Active MG/ML Inhalant BID, # 60 ea, 2019 [facility] Solution [Brovana] 0 Refill(s) Vitamin D3 1000 1,000 Active intl units/10 mL IntlUnit = 10 2019 [facility] oral liquid mL, PO, Daily, 0 Refill(s) Vitamin D3 2000 2,000 Active intl units oral IntlUnit = 1 2019 [facility] capsule cap, PO, Daily, # 100 cap, 3 Refill(s) Ipratropium Bradner 0.5 mg, NEB, Active 0.2 MG/ML Inhalant QID, PRN 2019 [facility] Solution wheezing, # 25 ea, 0 Refill(s) 200 ACTUAT 2 puff, Active Levalbuterol 0.045 INHALATION, 2019 [facility] MG/ACTUAT Metered Q4H, PRN Dose Inhaler Cough, [Xopenex] wheezing, shortness of breath, # 15 gm, 2 Refill(s) Probiotic Formula 1 cap, PO, Active oral capsule Daily, 0 2019 Refill(s) Furosemide 20 MG 20 mg = 1 Inactive Oral Tablet tab, PO, BID, 2019 [facility] est 0 Refill(s) carvedilol 12.5 mg 12.5 mg = 1 Active 07/12/ H oral tablet tab, PO, BID, 2019 [facility] est 0 Refill(s) atorvastatin 20 mg 20 mg = 1 Active oral tablet tab, PO, 2019 Daily, 0 Refill(s) rivaroxaban 20 mg 20 mg = 1 Active oral tablet tab, PO, QPM, 2019 [facility] est 0 Refill(s) Furosemide 40 MG 40 mg = 1 Inactive Oral Tablet tab, PO, 2019 Daily, 0 Refill(s) Lasix Notes: (Same No Longer as: Lasix) 2019 May cause GI upset. Give with food or milk. Cipro Notes: May No Longer interfere 2019 w/enteral feedings - Take 1 hr before or 2 hrs after antacids, dairy pdt & minerals. On empty stomach. Prednisone Notes: Take No Longer with food. 2019 [facility] cefepime + Sodium Notes: (Same No Longer Chloride 0.9% IV As: Maxipime) 2019 [facility] 100 mL MEDICATION WASTE Product Size: 1000 mg Product Wasted: ___ mg cefepime Notes: (Same Inactive As: Maxipime) 2019 [facility] MEDICATION WASTE Product Size: 1000 mg Product Wasted: ___ mg Prednisone Notes: Take Inactive with food. 2019 [facility] Aspirin 81 mg, Route: No Longer PO, Drug 2019 [facility] form: ECTAB, Daily, Dosing Weight 85, kg, Start date: 07/09/19 9:00:00 LUMBER STRAIGHTENED, Duration: 30 day, Stop date: 08/07/19 9:00:00 LUMBER STRAIGHTENED ferrous sulfate Notes: Give No Longer with food. 2019 [facility] iron elemental [id number] as ferrous sulfate Dose=___mg elemental iron Coreg Notes: Give No Longer with food. 2019 [facility] (Same As: Coreg) Acetaminophen 325 Notes: (Same No Longer MG / Hydrocodone as: Rarden 2019 [facility] Bitartrate 5 MG 325/5) Do Oral Tablet not exceed 4gm/day of acetaminophen . Acetaminophen 325 Notes: Do not No Longer MG Oral Tablet exceed 4 2019 [facility] t gm/day. (Same as: Tylenol) Hydralazine Notes: (Same No Longer as: 2019 [facility] Apresoline) Push over 5 minutes Albuterol 0.833 Notes: (Same No Longer H MG/ML / Ipratropium as: Duoneb) 2019 [facility] Bradner 0.167 MG/ML Inhalant Solution [DuoNeb] Melatonin 3 MG Notes: (Same No Longer Extended Release as: 2019 [facility] Tablet Melatonin) Azithromycin Notes: (Same No Longer As: Zithromax 2019 [facility] IV) Ceftriaxone Notes: (Same No Longer As: 2019 [facility] Rocephin). Use with 100 mL NS and infuse over 30 min MEDICATION WASTE Product Size: 1000 mg Product Wasted: ___ mg Xarelto Notes: (Same No Longer as: Xarelto) [facility] 2019 [facility] Administer with food Lasix Notes: (Same No Longer as: Lasix) 2019 [facility] MEDICATION WASTE Product Size: 40 mg Product Wasted: ___ mg POLYETHYLENE GLYCOL Notes: No Longer 3350 Dissolve in 8 [facility] 2019 [facility] oz of water or juice. (Same as: Miralax) Aspirin 81 MG Notes: Take No Longer Chewable Tablet with food. Active 2019 [facility] Lasix 40 mg, Route: No Longer IVP, Drug 2019 [facility] form: INJ, Daily, kg, Start date: 07/07/19 9:00:00 LUMBER STRAIGHTENED, Duration: 30 day, Stop date: 08/05/19 9:00:00 LUMBER STRAIGHTENED sennosides, PENITENTIARY Notes: (Same No Longer H as: Senokot) 2019 [facility] Ranitidine Notes: (Same No Longer as:Zantac) 2019 [facility] Take before or with meals chlorhexidine Notes: (Same No Longer gluconate 1.2 MG/ML As: Peridex) 2019 [facility] Mouthwash Coreg Notes: Give No Longer with food. 2019 [facility] (Same As: Coreg) atorvastatin Notes: (Same No Longer As: Lipitor) 2019 [facility] Dextrose 50% in 50 mL, Route: No Longer Water IV IVP, Start 2019 [facility] date: 07/06/19 20:36:00 LUMBER STRAIGHTENED, Duration: 30 day, Stop date: 08/05/19 20:35:00 LUMBER STRAIGHTENED, PRN Blood Glucose Results, 0 glucagon 1 mg, Route: No Longer IV, Drug 2019 [facility] form: PDR/INJ, PRN, PRN Blood Glucose Results, Start date: 07/06/19 20:36:00 LUMBER STRAIGHTENED, Duration: 30 day, Stop date: 08/05/19 20:35:00 LUMBER STRAIGHTENED, 0 Humalog Notes: (Same No Longer as: Humalog) Active 2019 [facility] palms of hands gently; Do not shake vigorously. WASTE: F/P - Black; E - Municipal Trash Bin Stable for 28 days at room temperature. Expires in days from _Date Humalog Notes: (Same No Longer as: Humalog) Active 2019 [facility] in palms of hands gently; Do not shake vigorously. WASTE: F/P - Black; E - Municipal Trash Bin Stable for 28 days at room temperature. Expires in days from _Date Humalog Notes: (Same No Longer as: Humalog) Active 2019 [facility] in palms of hands gently; Do not shake vigorously. WASTE: F/P - Black; E - Municipal Trash Bin Stable for 28 days at room temperature. Expires in days from _Date Humalog Notes: (Same No Longer as: Humalog) Active 2019 [facility] in palms of hands gently; Do not shake vigorously. "Single Patient Use Only " WASTE: F/P - Black; E - Municipal Trash Bin Stable for 28 days at room temperature. Expires in days from _Date Albuterol 0.833 Notes: (Same No Longer H MG/ML / Ipratropium as: Duoneb) 2019 [facility] Bradner 0.167 MG/ML Inhalant Solution propofol 10 mg/mL Notes: If No Longer (Titrate.) IV 1,000 Diprivan - Active 2019 [facility] mg change bottle & tubing every 12 hr Per state nursing law propofol can only be given by a nurse if patient is intubated or being intubated (unless the nurse is a MANAGING MEMBER). Same as: Diprivan Nurse re-entered to resolve scanning problem BD Normal Saline Notes: Same No Longer Flush as: BD 2019 [facility] Posiflush Sterile Sodium Chloride 250 mL, No Longer 0.9% IV Route: IVPB, [facility] 2019 [facility] Start date: 07/06/19 18:01:00 LUMBER STRAIGHTENED, Duration: 30 day, Stop date: 08/05/19 18:00:00 LUMBER STRAIGHTENED, PRN Line Flush, 0 methylPREDNISolone Notes: (Same No Longer SODium SUCCinate as:Solu-MEDRO 2019 [facility] L, A-Methapred) Budesonide 0.25 Notes: (Same No Longer H MG/ML Inhalant As: 2019 [facility] Solution Pulmicort) Lasix Notes: (Same Inactive as: Lasix) 2019 [facility] MEDICATION WASTE Product Size: 40 mg Product Wasted: ___ mg Docusate Notes: (Same No Longer as: Colace) 2019 [facility] Enoxaparin Notes: (Same No Longer as: Lovenox) 2019 [facility] propofol 10 mg/mL Notes: If Inactive (Titrate.) IV 1,000 Diprivan - 2019 [facility] mg change bottle & tubing every 12 hr Per state nursing law propofol can only be given by a nurse if patient is intubated or being intubated (unless the nurse is a MANAGING MEMBER). Same as: Diprivan Azithromycin Notes: (Same Inactive As: Zithromax 2019 [facility] IV) Ceftriaxone Notes: (Same Inactive As: 2019 [facility] Rocephin). Use with 100 mL NS and infuse over 30 min MEDICATION WASTE Product Size: 1000 mg Product Wasted: ___ mg Acetaminophen Notes: Do not No Longer exceed 4 2019 [facility] gm/day. (Same as: Tylenol) Albuterol 0.833 Notes: (Same No Longer H MG/ML / Ipratropium as: Duoneb) 2019 [facility] Bradner 0.167 MG/ML Inhalant Solution Bisacodyl Notes: (Same No Longer As: Dulcolax, 2019 [facility] Bisco-Lax) Fentanyl 1,000 No Longer microgram, 20 2019 [facility] mL, Rate: Titrate, Start Dose: 50 microgram/hr, Titration: Titrate by 25 micrograms/ho ur every 15 minutes, Goal(s): RASS goal of 0, Max Dose: 300 mcg/hr, Route: IV, Dosing Weight 90 kg, Total Volume: 20, Start date: 07/06/19 16:18:... Potassium Chloride Notes: (Same No Longer as: KCL) 2019 [facility] Infuse no faster than 10 mEq/hr if given peripherally. sodium phosphate Notes: Infuse No Longer over 4 hour. 2019 [facility] Do not infuse phosphorous concurrently in the same line as TPN or IVF that contains calcium. For double lumen central lines, phosphorous may be infused in a separate lumen from TPN. potassium phosphate Notes: (Same No Longer 07/06 as: K 2019 [facility] Phosphate.) Do not infuse phosphorous concurrently in the same line as TPN or IVF that contains calcium. For double lumen central lines, phosphorous may be infused in a separate lumen from TPN. 1 mMol phoshate has 1.47 mEq potassium Infuse over 4 hours potassium Notes: (Same No Longer phosphate-sodium as: Phos-NaK) [place] [facility] phosphate 250 Each 1.5 gm mg-280 mg-160 mg pkt has 250mg oral powder for phosphorous. reconstitution Mix w/2.5oz water and stir. Magnesium Sulfate Notes: WASTE: No Longer F/P - Sink; E 2019 [facility] Magnesium Oxide Notes: (Same No Longer H as: Mag-Ox 2019 [facility] 400) Magnesium oxide [id number] elemental magnesium Dose=____mg magnesium oxide (___mg elemental magnesium) Calcium Gluconate Notes: WASTE: No Longer F/P - Sink; E [address] [place] [address] Bin Calcium Carbonate Notes: (Same No Longer 500 MG Chewable As: Tums) 2019 [facility] Tablet Calcium Carbonate 500 mg = 200 mg elemental calcium Dose = mg calcium carbonate ( mg elemental calcium) chlorhexidine Notes: (Same No Longer gluconate 1.2 MG/ML As: Peridex) 2019 [facility] Mouthwash Allergies, Adverse Reactions, Alerts Substance Category Reaction Severity Reaction Status Date Comments S ource type Reported No Known Assertion Drug MH Medication allergy [facility] Allergies Immunizations No Data Provided for This Section Results Order Name Results Value Reference Date Interpretation Comments Dalila rce Range CHEM PANEL Glucose Lvl 92 70 - 99 07/12 [facility] CHEM PANEL BUN 32 7 - 22 07/12 [facility] CHEM PANEL Creatinine 1.00 0.50 - 07/12 MH Lvl 1.40 [facility] CHEM PANEL Sodium Lvl 139 135 - 145 07/12 [facility] CHEM PANEL Potassium 3.5 3.5 - 5.1 07/12 MH Lvl [facility] CHEM PANEL Chloride Lvl 98 95 - 109 07/12 [facility] CHEM PANEL CO2 37 24 - 32 07/12 [facility] CHEM PANEL Calcium Lvl 8.8 8.5 - 10.5 07/12 [facility] CHEM PANEL eGFR 57 07/12 Result Comment: The [facility] eGFR is calculated using the CKD-EPI formula. In most young, healthy individuals the eGFR will be >90 mL/min/1.73m2 . The eGFR declines with age. An eGFR of 60-89 may be normal in some populations, particularly the elderly, for whom the CKD-EPI formula has not been extensively validated. Use of the eGFR is not recommended in the following populations:< br/>
Yani viduals with unstable creatinine concentration s, including patients and those with serious co-morbid conditions.<b r/>
Patie nts with extremes in muscle mass or diet.

The data above are obtained from the National Kidney Disease Education Program (NKDEP) which additionally recommends that when the eGFR is used in patients with extremes of body mass index for purposes of drug dosing, the eGFR should be multiplied by the estimated BMI. CHEM PANEL AGAP 7.5 10.0 - 07/12 MH 20.0 [facility] HEMATOLOGY WBC 6.7 3.7 - 10.4 07/12 [facility] HEMATOLOGY RBC 3.05 4.20 - 07/12 MH 5.40 [facility] HEMATOLOGY Hgb 8.8 12.0 - 07/12 MH 16.0 [facility] HEMATOLOGY Hct 27.3 36.0 - 07/12 MH 48.0 [facility] HEMATOLOGY MCV 89.3 80.0 - 07/12 MH 98.0 /2020 [facility] HEMATOLOGY MCH 28.9 27.0 - 07/12 MH 31.0 [facility] HEMATOLOGY MCHC 32.3 32.0 - 07/12 MH 36.0 [facility] HEMATOLOGY RDW 15.4 11.5 - 07/12 MH 14.5 [facility] HEMATOLOGY Platelet 209 133 - 450 07/12 [facility] HEMATOLOGY MPV 8.8 7.4 - 10.4 07/12 [facility] CHEM PANEL Glucose Lvl 92 70 - 99 07/11 [facility] CHEM PANEL BUN 38 7 - 22 07/11 [facility] CHEM PANEL Creatinine 1.10 0.50 - 07/11 MH Lvl 1.40 /2019 [facility] CHEM PANEL Sodium Lvl 140 135 - 145 07/11 [facility] CHEM PANEL Potassium 3.8 3.5 - 5.1 07/11 MH Lvl /2019 [facility] CHEM PANEL Chloride Lvl 100 95 - 109 07/11 [facility] CHEM PANEL CO2 34 24 - 32 07/11 [facility] CHEM PANEL Calcium Lvl 8.9 8.5 - 10.5 07/11 [facility] CHEM PANEL eGFR 51 07/11 Result Comment: The [facility] eGFR is calculated using the CKD-EPI formula. In most young, healthy individuals the eGFR will be >90 mL/min/1.73m2 . The eGFR declines with age. An eGFR of 60-89 may be normal in some populations, particularly the elderly, for whom the CKD-EPI formula has not been extensively validated. Use of the eGFR is not recommended in the following populations:< br/>
Yani viduals with unstable creatinine concentration s, including patients and those with serious co-morbid conditions.<b r/>
Patie nts with extremes in muscle mass or diet.

The data above are obtained from the National Kidney Disease Education Program (NKDEP) which additionally recommends that when the eGFR is used in patients with extremes of body mass index for purposes of drug dosing, the eGFR should be multiplied by the estimated BMI. CHEM PANEL AGAP 9.8 10.0 - 07/11 MH 20.0 [facility] HEMATOLOGY Segs 74.5 45.0 - 07/11 MH 75.0 [facility] HEMATOLOGY Lymphocytes 17.9 20.0 - 07/11 MH 40.0 /2019 [facility] HEMATOLOGY Monocytes 7.3 2.0 - 12.0 / /2019 [facility] HEMATOLOGY Eosinophils 0.2 0.0 - 4.0 07/11 /2019 [facility] HEMATOLOGY Basophils 0.1 0.0 - 1.0 07/11 /2019 [facility] HEMATOLOGY Neutrophils 4.9 1.5 - 8.1 07/11 MH # /2020 [facility] HEMATOLOGY Lymphocytes 1.2 1.0 - 5.5 07/11 MH # /2019 [facility] HEMATOLOGY Monocytes # 0.5 0.0 - 0.8 07/11 MH /2019 [facility] HEMATOLOGY WBC 6.5 3.7 - 10.4 07/11 /2019 [facility] HEMATOLOGY RBC 2.99 4.20 - 07/11 MH 5.40 /2019 [facility] HEMATOLOGY Hgb 8.6 12.0 - 07/11 MH 16.0 /2019 [facility] HEMATOLOGY Hct 26.5 36.0 - 07/11 MH 48.0 /2019 [facility] HEMATOLOGY MCV 88.5 80.0 - 07/11 98.0 /2019 [facility] HEMATOLOGY MCH 28.8 27.0 - 07/11 31.0 /2019 [facility] HEMATOLOGY MCHC 32.5 32.0 - 07/11 MH 36.0 /2019 [facility] HEMATOLOGY RDW 15.5 11.5 - 07/11 14.5 /2019 [facility] HEMATOLOGY Platelet 214 133 - 450 07/11 [facility] HEMATOLOGY MPV 9.3 7.4 - 10.4 07/11 /2019 [facility] ANEMIA Ferritin Lvl 33 5 - 204 07/09 STUDY /2019 [facility] ANEMIA Vitamin B12 672 254 - 1320 07/09 STUDY Lvl /2019 [facility] CHEM PANEL Glucose Lvl 134 70 - 99 07/09 [facility] CHEM PANEL BUN 35 7 - 22 07/09 [facility] CHEM PANEL Creatinine 1.30 0.50 - 0105 Lvl 1.40 /2019 [facility] CHEM PANEL Sodium Lvl 137 135 - 145 07/09 [facility] CHEM PANEL Potassium 4.0 3.5 - 5.1 / Lvl /2019 [facility] CHEM PANEL Chloride Lvl 100 95 - 109 07/09 [facility] CHEM PANEL CO2 30 24 - 32 01/ [facility] CHEM PANEL Calcium Lvl 8.9 8.5 - 10.5 07/09 [facility] CHEM PANEL AGAP 11.0 10.0 - 01/ MH 20.0 /2020 [facility] CHEM PANEL eGFR 42 07/09 Result Comment: The [facility] eGFR is calculated using the CKD-EPI formula. In most young, healthy individuals the eGFR will be >90 mL/min/1.73m2 . The eGFR declines with age. An eGFR of 60-89 may be normal in some populations, particularly the elderly, for whom the CKD-EPI formula has not been extensively validated. Use of the eGFR is not recommended in the following populations:< br/>
Yani viduals with unstable creatinine concentration s, including patients and those with serious co-morbid conditions.<b r/>
Patie nts with extremes in muscle mass or diet.

The data above are obtained from the National Kidney Disease Education Program (NKDEP) which additionally recommends that when the eGFR is used in patients with extremes of body mass index for purposes of drug dosing, the eGFR should be multiplied by the estimated BMI. HEMATOLOGY WBC 8.8 3.7 - 10.4 07/09 [facility] HEMATOLOGY RBC 2.98 4.20 - 07/09 MH 5.40 /2019 [facility] HEMATOLOGY Hgb 8.4 12.0 - 07/09 MH 16.0 /2019 [facility] HEMATOLOGY Hct 26.4 36.0 - 07/09 MH 48.0 /2019 [facility] HEMATOLOGY MCV 88.7 80.0 - 07/09 MH 98.0 /2019 [facility] HEMATOLOGY MCH 28.3 27.0 - / MH 31.0 /2019 [facility] HEMATOLOGY MCHC 31.9 32.0 - / MH 36.0 [facility] HEMATOLOGY RDW 15.8 11.5 - 01 MH 14.5 /2019 [facility] HEMATOLOGY Platelet 250 133 - 450 07/09 [facility] HEMATOLOGY MPV 9.0 7.4 - 10.4 07/09 [facility] HEMATOLOGY Segs 89.3 45.0 - 01/ MH 75.0 /2020 [facility] HEMATOLOGY Lymphocytes 6.4 20.0 - 01/05 MH 40.0 /2019 [facility] HEMATOLOGY Monocytes 4.3 2.0 - 12.0 / [facility] HEMATOLOGY Eosinophils 0.0 0.0 - 4.0 / [facility] HEMATOLOGY Basophils 0.0 0.0 - 1.0 / [facility] HEMATOLOGY Neutrophils 7.8 1.5 - 8.1 / MH # /2019 [facility] HEMATOLOGY Lymphocytes 0.6 1.0 - 5.5 07/09 MH # [facility] HEMATOLOGY Monocytes # 0.4 0.0 - 0.8 07/09 MH [facility] HEMATOLOGY Eosinophils 0.0 0.0 - 0.5 /05 MH # /2019 [facility] HEMATOLOGY Basophils # 0.0 0.0 - 0.2 07/09 [facility] CARDIAC BNP 400 <=100 07/08 ENZYMES pg/mL /2019 [facility] HEMATOLOGY Segs 92.7 45.0 - 01/ MH 75.0 /2019 [facility] HEMATOLOGY Lymphocytes 5.4 20.0 - 01 MH 40.0 [facility] HEMATOLOGY Monocytes 1.6 2.0 - 12.0 07/08 [facility] HEMATOLOGY Basophils 0.3 0.0 - 1.0 07/08 MH [facility] HEMATOLOGY Neutrophils 8.5 1.5 - 8.1 07/08 MH # /2019 [facility] HEMATOLOGY Lymphocytes 0.5 1.0 - 5.5 07/08 MH # [facility] HEMATOLOGY Monocytes # 0.1 0.0 - 0.8 07/08 [facility] HEMATOLOGY Eosinophils 0.0 0.0 - 4.0 07/08 MH [facility] HEMATOLOGY Eosinophils 0.0 0.0 - 0.5 07/08 MH # [facility] HEMATOLOGY Basophils # 0.0 0.0 - 0.2 07/08 [facility] CARDIAC Troponin-I <0.02 0.00 - 07/07 ENZYMES 0.40 [facility] CHEM PANEL Magnesium 2.0 1.8 - 2.4 07/07 Lvl [facility] CHEM PANEL Phosphorus 3.7 2.5 - 4.5 07/07 [facility] IMMUNOLOGY Hep Bs Ag Negative Negative 07/07 MH *NA* [facility] (07/07/19 4:59 AM) IMMUNOLOGY Hep C Ab Negative Negative 07/07 MH *NA* [facility] (07/07/19 4:59 AM) IMMUNOLOGY Hep B Core Negative Negative 07/07 MH IgM *NA* [facility] (07/07/19 4:59 AM) IMMUNOLOGY Hep A IgM Negative Negative 07/07 MH *NA* [facility] (07/07/19 4:59 AM) CARDIAC Troponin-I <0.02 0.00 - 07/07 ENZYMES 0.40 [facility] BACTERIAL MRSA by PCR Negative 07/06 - SEROLOG[facility] (07/06/19 5:21 PM) /2019 [facility] BACTERIAL Source Strep Urine 07/06 - SEROLOGY *NA* /2019 [facility] (07/06/19 5:21 PM) BACTERIAL Strep Negative Negative 07/06 - SEROLOGY pneumoniae (07/06/19 5:21 PM) [facility] CARDIAC BNP 312 <=100 07/06 ENZYMES pg/mL /2019 [facility] CARDIAC proBNP 4210 0 - 125 01 ENZYMES /2019 [facility] CARDIAC Troponin-I <0.02 0.00 - 01 ENZYMES 0.40 [facility] CHEM PANEL Phosphorus 3.8 2.5 - 4.5 07/06 MH [facility] CHEM PANEL Magnesium 1.9 1.8 - 2.4 07/06 MH Lvl /2019 [facility] CHEM PANEL Globulin 3.6 2.7 - 4.2 01 MH /2019 [facility] CHEM PANEL A/G Ratio 0.8 0.7 - 1.6 07/06 MH [facility] CHEM PANEL Total 6.4 6.4 - 8.4 07/06 Protein [facility] CHEM PANEL Albumin Lvl 2.8 3.5 - 5.0 01 MH [facility] CHEM PANEL ALT 22 0 - 65 07/06 MH [facility] CHEM PANEL AST 27 0 - 37 07/06 MH [facility] CHEM PANEL Bili Total 0.5 0.2 - 1.3 07/06 MH [facility] CHEM PANEL Bili Direct 0.1 0.0 - 0.3 07/06 MH [facility] CHEM PANEL Bili 0.4 0.0 - 1.0 07/06 Indirect [facility] CHEM PANEL Alk Phos 64 39 - 136 07/06 MH [facility] CHEM PANEL Lactic Acid 0.9 0.5 - 2.2 07/06 MH Lvl /2019 [facility] CHEM PANEL Procalcitoni 0.26 0.00 - 07/06 n Lvl 0.10 [facility] HEMATOLOGY PT 30.2 12.0 - 07/06 MH 14.7 /2019 [facility] HEMATOLOGY INR 2.81 0.85 - 07/06 MH 1.17 [facility] HEMATOLOGY PTT 40.9 22.9 - 07/06 MH 35.8 [facility] HEMATOLOGY Plt Morph Normal Normal 07/06 (07/06/19 5:21 PM) [facility] HEMATOLOGY Eosinophils 0.0 0.0 - 0.5 07/06 MH # [facility] HEMATOLOGY Basophils # 0.0 0.0 - 0.2 07/06 [facility] HEMATOLOGY Anisocyte 1+ None Seen 07/06 MH *ABN* [facility] (07/06/19 5:21 PM) HEMATOLOGY Hypochrom 1+ None Seen 07/06 (07/06/19 5:21 PM) [facility] MOLECULAR Source Nasophrngl Swb 07/06 DIAGNOSTIC Respiratory *NA* [facility] Panel PCR (07/06/19 5:21 PM) MOLECULAR Influenza A Negative Negative 07/06 DIAGNOSTIC PCR *NA* [facility] (07/06/19 5:21 PM) MOLECULAR Influenza B Negative Negative 07/06 DIAGNOSTIC PCR *NA* [facility] (07/06/19 5:21 PM) MOLECULAR RSV PCR Negative Negative 07/06 DIAGNOSTIC *NA [facility] (07/06/19 5:21 PM) PARATHYROI Ca Ion WB 1.05 1.05 - 07/06 D PROFILE 07.29 [facility] PARATHYROI Ca Norm WB 1.05 1.05 - 07/06 D PROFILE 07.29 [facility] CEFTAZIDIM Gram Stain Good Quality Specimen 07/06 E:SUSC:PT: Report Less Than 25 Squamous Epithelial Cells/Lpf /2 020 [facility] ISOLATE:OR Few WBC's DQN:JER No Organisms Seen CEFTAZIDIM Culture: Moderate Serratia marcescens 07/06 E:SUSC:PT: Respiratory . [facility] ISOLATE:OR w/Gram Stain Normal Respiratory Rose Isolated DQN:JER CEFTAZIDIM Serratia Serratia 07/06 E:SUSC:PT: marcescens marcescens /2019 [facility] ISOLATE:OR DQN:JER Pathology Reports No Data Provided for This Section Diagnostic Reports Report Value Date Source Chest 1view DX PROCEDURE INFORMATION: 07/09/2019 [facility] est Exam: XR Chest, 1 View Exam date and time: 07/09/2019 6:57 AM Age: 68 years old Clinical indication: Respiratory failure/evaluat e pulmonary edema/infiltrates TECHNIQUE: Imaging protocol: XR of the chest Views: 1 view. COMPARISON: CHEST 1VIEW DX 07/08/2019 6:42 AM FINDINGS: Lungs: Unchanged bilateral basilar atelectasis. Unchanged small bilateral layering pleural effusions. Probable pulmonary c ongestion, unchanged. Pleural space: No pneumothorax. Heart/Mediastinum: Stable cardiomegaly. Bones/joints: No acute osseous abnormality. IMPRESSION: Stable exam. Vipin Chapa MD On 07/09/2019 12:05:23; [id number] Chest 1view DX PROCEDURE INFORMATION: 07/08/2019 [facility] est Exam: XR Chest, 1 View Exam date and time: 07/08/2019 6:42 AM Age: 68 years old Clinical indication: Respiratory failure/evaluat e pulmonary edema/infiltrates TECHNIQUE: Imaging protocol: XR of the chest Views: 1 view. COMPARISON: CHEST 1VIEW DX 07/07/2019 12:24 AM FINDINGS: Tubes, catheters and devices: Endotrache al tube and nasogastric tube have been removed. Lungs: Unchanged moderate bilateral layering ple ural effusions. Unchanged bilateral basilar atelectasis/infiltrate. Pleural space: Unremarkable. No pleural effusion . No pneumothorax. Heart/Mediastinum: Stable mediastinum. Bones/joints: No acute osseous abnormality. IMPRESSION: 1. Unchanged moderate bilateral layering pleural effusions. 2. Unchanged bilateral basilar atelectasis/infil trate. 3. Endotracheal tube and nasogastric tube have b een removed. Vipin Chapa MD On 07/08/2019 10:49:24; [id number] Chest 1view DX PROCEDURE INFORMATION: 07/07/2019 [facility] est Exam: XR Chest, 1 View Exam date and time: 07/07/2019 12:24 AM Age: 68 years old Clinical indication: Condition or disease; Addit ional info: Respiratory failure/evaluate pulmonary edema/infiltrates, in tubated TECHNIQUE: Imaging protocol: XR of the chest Views: 1 view. COMPARISON: CHEST 1V FOR PLACEMENT DX 07/06/2019 4:37 PM FINDINGS: Portable AP image. Endotracheal tube in satisfactory position. Nasogastric tube extends into the stomach but t erminal point not evident. Slightly enlarged cardiac silhouette. Aortic at herosclerosis. Retrocardiac left hemithorax remains opaque. Persistent hazy opacity lower right hem ithorax, likely small layering pleural effusion and pulmonary consolidation. Mild interstitial scarring. No vascular congestion. IMPRESSION: No significant change. Noah Pacheco MD On 07/07/2019 07:45:54; [id number]- [id number] Abdomen 1 v for PROCEDURE INFORMATION: 07/06/2019 [facility] Pl[facility] DX Exam: XR Abdomen, 1 View Exam date and time: 07/06/2019 5:48 PM Age: 68 years old Clinical indication: Device placement; Additiona l info: /ogt TECHNIQUE: Imaging protocol: XR of the abdomen. Views: Frontal supine view of the abdomen. 1 Vie w. COMPARISON: No relevant prior studies available. FINDINGS: Tubes, catheters and devices: Orogastric tube is present and the distal tube overlies the expected location of the stomach. Lower thorax: Visualized aspects of the lower th orax appear unremarkable. Gastrointestinal tract: Contrast identified with in nondilated colon. Colon diverticulosis. The bowel appears otherwise unre markable. Intraperitoneal space: Lower pelvis is incomplet cassia visualized within the [id number]. Limited evaluation. Organs: No radiographic evidence for solid organ omegaly. Bones/joints: Moderate to severe degenerative di sc disease in the spine. Soft tissues: Unremarkable. IMPRESSION: Orogastric tube is present and the distal tube o verlies the expected location of the stomach. Gaston Francis MD On 07/06/2019 18:59:15; VR [id number] Chest 1 v for PROCEDURE INFORMATION: 07/06/2019 [facility] DX Exam: XR Chest, 1 View Exam date and time: 07/06/2019 4:37 PM Age: 68 years old Clinical indication: Device placement; E tt placement (vent status); Additional info: Tube placement/s/p intubation TECHNIQUE: Imaging protocol: XR of the chest Views: 1 view. COMPARISON: No relevant prior studies available. FINDINGS: Tubes, catheters and devices: Endotracheal tube terminates 4.2 cm above the shamir. Lungs: Moderate central vascular congestion with increased interstitial thickening. Pleural space: Trace bilateral pleural effusions . No pneumothorax. Heart/Mediastinum: Mild cardiomegaly. Bones/joints: No acute osseous abnormality. IMPRESSION: 1. Cardiomegaly with moderate interstitial edema . Trace bilateral pleural effusions. 2. Endotracheal tube 4.2 cm above the shamir. Gaston Arciniega MD On 07/06/2019 16:57:57; BASSAMM [id number] Consultation Notes No Data Provided for This Section Discharge Summaries No Data Provided for This Section History and Physicals No Data Provided for This Section Vital Signs Vital Sign Value Date Comments Source Temperature Oral (F) 97.3 F 07/12/2019 [facility] Rate 94 07/12/2019 [facility] Respitory Rate 20 07/12/2019 [facility] Systolic (mm Hg) 126 07/12/2019 [facility] Diastolic (mm Hg) 67 07/12/[address] [facility] [address] Respitory Rate 18 07/12/2019 [facility] Temperature Oral (F) 97.7 F 07/12/2019 [facility] Rate 76 07/12/2019 [facility] Respitory Rate 18 07/12/2019 [facility] Systolic (mm Hg) 150 07/12/2019 [facility] Diastolic (mm Hg) 63 07/12/[address] [facility] [address] Temperature Oral (F) 97.5 F 07/12/2019 [facility] Systolic (mm Hg) 149 07/12/2019 [facility] Diastolic (mm Hg) 71 07/12/[address] [facility] [address] Heart Rate 97 07/12/2019 [facility] Height 149.86 cm 07/09/2019 [facility] Weight 86 07/09/2019 [facility] BMI Calculated 38.29 07/09/2019 [facility] Height 149.86 cm 07/07/2019 [facility] Height 149.86 cm 07/07/2019 [facility] Weight 85 07/07/2019 [facility] BMI Calculated 37.85 07/07/2019 [facility] Weight 85 07/06/2019 [facility] BMI Calculated 37.85 07/06/2019 [facility] Encounters Location Location Encounter Encounter Reason Attending ADM IA Stat Source Details Type Number For Provider Date Date Visit [id number] [facility] Procedures No Data Provided for This Section Assessment and Plan Assessment and Plan Date Source Extracted from:Title: Discharge Summary 07/12/2019 [facility] Author: Rodney Hawkins MD Date: 07/12/19 Discharge Summary Attending Physician:Dr. Kaiser Date of Admission: 07/06/2019 Date of Discharge: 07/12/2019 Consults: Pulmonary: Dr. Doll Procedures:Intubation Active Diagnosis During this Hospitalization: 1. Acute respiratory failure with hypox ia and hypercapnia secondary to CHF, and COPD exacerbation and Serratia pneumonia 2.Sepsis secondary to Serratia pneumonia 2. Serratia pneumonia 3. Obesity hypoventilation syndrome 4. Obstructive sleep apnea 5. Essential hypertension 6. Hyperlipidemia 7. Iron deficiency anemia 8. Atrial fibrillation with RVR on Xarelto 9. CKD stage III 10. Deconditioning Hospital Course: 68-year-old morbidly obese female with p ast medical history significant for chronic injury relation, CVA, hypertension, COPD, CHF who has been admitted multiple times in the last 6 months due to COPD an d CHF exacerbations. She has been intub ated at least 5 times in the past. She presented to an outside hospital on 07/06/2019 due to worsening dyspnea for 1 day. She was found she was found to have hyper carbic and hypoxemic respiratory failure . Her initial ABG showed PCO2 of 124. She was intubated. Outside film showed pulmonary congestion and small to moderate right pleural effusion. She was transf erred to [facility] for higher level of care she was transferred to the ICU and was intubated due to hypercapnic and hypoxemic respiratory failure secondary to CHF and COPD exacerbation. She is currently on trilogy vent at home. She was extubate d and then transferred to the medical floor. She was started on IV Solu-Medrol, pulmonary toilet, IV Lasix. Pulmonary was consulted. She currently receives BiP AP at night and is on 2 L nasal cannula. She is currently on prednisone 20 mg daily which is currently being tapered. She is also on ciprofloxacin. She has a history of atrial fibrillation with a Suzanna d Vascor of 2. She is currently on Xare lto for stroke prevention. She had leukocytosis on admission. Respiratory panel and strep pneumo and Legionella antigen are negative. 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 Emma Diaz for management of acute respiratory failure, CHF, atrial fibrillation. Sputum culture positive for Serratia sensitive to Cipro. Patient is currently on C ipro, day 12/09 Physical Exam: Vitals Tmp(F) Pulse BP RR SpO2 FIO2 07/12 12:03 97.3 94 126/67 20 97 --- 07/12 10:09 ---- --- ----- 18 100 2.0L/m 07/12 08:20 97.7 76 150/63 18 97 --- 07/12 04:00 97.5 --- 149/71 18 100 --- 07/12 02:36 ---- --- ----- -- 100 35% 24 Hr Tmax: 97.7F (36.50c) at 07/12 08:2 0 Vital Signs are the last 5 in the past 48 hours. General: NAD, awake, alert, answering questions appropriate ly Eyes: PERRLA, EOMI EENT: Clear oropharynx, moist mucus membranes Neck: Neck supple, no adenopathy Resp: Diminished breath sounds bilaterally CV: Regular rate and rhythm without murmurs or gallop GI: Obese abdomen Musculoskeletal: 1+ pitting edema bilaterally Neurologic: No focal deficits, normal strength and sensation Discharge Meds: Please refer to discharge medication reconciliation Discharge Condition: Stable Discharge Activity: As tolerated Discharge Diet: Heart healthy diet Discharge Disposition: [facility] Discharge Insturctions: Continue ciprofloxacin day / Continue Lasix Continue prednisone taper Time spent at Discharge: 40-minute Extracted from:Title: Progress Note Complex * Author: Leonid Doll MD Date: 07/12/19 Impression and Plan COPD: cont steroids and bronchodilators, ready for D/C. ELÍAS/OHS: on BIPAP at night. Extracted from:Title: ICU Progress Note Author: Mando El MD Date: 07/06/19 Impression and Plan The patient was seen and examined by me with the resident/CAUL PULLER/PA and I agree with the History/Exam documented. Plan of Care No Data Provided for This Section Social History Social History Date Source Social History TypeResponse 07/07/2019 [facility] Alcohol Past, Previous treatment: None. Alcohol use interferes with work or home: No. Drinks more than intended: No. Others hurt by drinking: No. Ready to change: No. Household alcohol concerns: No. Substance Abuse Use: None. IV drug use: No. Drug use i nterferes with work/home: No. Ready to change: No. Household substance abuse concerns: No. Cessation Education Provided: No. Smoking Status Former smoker; Type: Cigarettes; Previou s treatment: None; Exposure to Tobacco Smoke None; Cigarette Smoking Last 365 Days No; Reg Smoking Cessation Counseling No; Stopped at age: 56; 1 entered on: 07/07/19 1NON SMOKER Family History No Data Provided for This Section Advance Directives No Data Provided for This Section Functional Status No Data Provided for This Section
--- OUTSIDE RECORDS SUMMARY | 2020-03-13 00:26 | XMS REPORT | Continuity of Care Document ---
:1950 Author Organization [facility] t Address [address] [place] [address] Care Team Providers Name Role Phone Asked, Pcp Primary Care Physician Unavailable Yakov Astudillo MD Attending Clinician Emre See MD Attending Clinician Papo RODRIGUEZ Attending Clinician Ade RODRIGUEZ Attending Clinician Xavier RN Attending Clinician Unavailable Flip RN Attending Clinician Unavailable LuisA lfredo Fontanez MD Attending Clinician Jelani RN Attending Clinician Unavailable [facility] Attending Clinician Unavailable Jaswinder MAJANO Attending Clinician Unavailable Emre Hutchinson MD Attending Clinician Arcadio RODRIGUEZ Attending Clinician Jerel Finnegan MD Attending Clinician Noe VIGIL Attending Clinician Isi Parrish MD Attending Clinician Baldo Chavez MD Attending Clinician Deven Berman CRNA Attending Clinician Erin Byrd MD Attending Clinician Bebo RODRIGUEZ Attending Clinician Mari RODRIGUEZ Attending Clinician Fay RODRIGUEZ Attending Clinician Karine Romero MA Attending Clinician Unavailable Andrade Attending Clinician SOILA Attending Clinician Unavailable Soila RODRIGUEZ Attending Clinician Carolyne Lunsford Attending Clinician Luis Fernando Bright MD Attending Clinician Nima RODRIGUEZ Attending Clinician Radha Da Silva MD Attending Clinician Linda RODRIGUEZ, Veto Attending Clinician Tawanda RODRIGUEZ, Roberto Attending Clinician Sheila RODRIGUEZ Attending Clinician Stuart Mejia MD Attending Clinician Keri Taveras CRNA Attending Clinician Reynaldo RODRIGUEZ TAndrew Attending Clinician Teodoro El MD Attending Clinician Ray Coughlin DO Attending Clinician Santos RODRIGUEZ Attending Clinician Trish Espinoza MD Attending Clinician JASPER Admitting Clinician Unavailable Andrade Admitting Clinician SOILA Admitting Clinician Unavailable PAN Admitting Clinician Unavailable ALEXIS Admitting Clinician Unavailable Payers Payer Name Policy Type Policy Number Effective Date Expiration Date S joana AETNA xxxxxxxx 2013 [place] MEDICAREAETNA 00:00:00 Sabianist MEDICARE HMO/PPO [id number] 4-PresentO AETNA - MEDICARE xxxxxxxx [facility] - MGD CAREAETNA Medical Brittani ter MEDICARE HMO POS [id number] [id number] [place] [id number] Problems Condition Condition Condition Status Onset Resolution Last Treating Co mments Source Name Details Category Date Date Treatment Clinician Date Rectal Rectal Disease Active [facility] cancer cancer 3-11 Methodi 00:00: st 00 Respirator Respirator Disease Active 2018-[address] y failure y failure 2-26 Luke s - with with 00:00: Medical hypoxia hypoxia 00 Center Hypercapni Hypercapni Disease Active 2018-07 H og lei c 0-12 Methodi respirator respirator 00:00: st y failure y failure 00 Respirator Respirator Disease Active H og y distress y distress 9-24 Me thodi 00:00: st 00 Accelerate Accelerate Disease Active H og d d 6-29 Methodi hypertensi hypertensi 00:00: st on on 00 HTN HTN Disease Active [facility] (hypertens (hypertens 6-25 Me thodi ion) ion) 00:00: st 00 COPD COPD Disease Active [facility] (chronic (chronic 6-25 Method i obstructiv obstructiv 00:00: st e e 00 pulmonary pulmonary disease) disease) HLD HLD Disease Active [facility] (hyperlipi (hyperlipi 6-25 Me thodi demia) demia) 00:00: st 00 History of History of Disease Active H og CEA CEA 6-25 Methodi (carotid (carotid 00:00: st endarterec endarterec 00 thu) thu) SAH SAH Disease Active [facility] (subarachn (subarachn 6-24 Me thodi oid oid 00:00: st hemorrhage hemorrhage 00 ) ) RESPIRATOR Diagnosis Active 2019-07-18 Memoria Y FAILURE 1-02 22:01:00 l 00:00: Asher RESPIRATOR 00 Y FAILURE Active 07/06/1999 [facility] Acute Problem Active 2019-07-14 Memor ia hypoxemic 23:12:10 l and Acute [place] hypercapni hypoxemic c and respirator hypercapni y failure c respirator y failure Active Problem 07/14/2019 [facility] Acute on Problem Active 2019-07-14 Mem oria chronic 23:12:10 l diastolic Acute on Her morocho heart chronic failure diastolic (disorder) heart failure (disorder) Active Problem 07/14/2019 [facility] Anemia Problem Active 2019-07-14 Memor ia (disorder) 23:12:10 l Anemia [place] (disorder) Active Problem 07/14/2019 [facility] Atrial Problem Active 2019-07-14 Memor ia fibrillati 23:12:10 l on Atrial Asher (disorder) fibrillati on (disorder) Active Problem 07/14/2019 [facility] Atrial Problem Active 2019-07-14 Memor ia fibrillati 23:12:10 l on with Atrial Asher rapid fibrillati ventricula on with r response rapid (disorder) ventricula r response (disorder) Active Problem 07/14/2019 [facility] Chronic Problem Active 2019-07-14 Arik good kidney 23:12:10 l disease Chronic Giovanni n stage 3 kidney (disorder) disease stage 3 (disorder) Active Problem 07/14/2019 [facility] Iron Problem Active 2019-07-14 Memor ia deficiency 23:12:10 l anemia Iron [place] (disorder) deficiency anemia (disorder) Active Problem 07/14/2019 [facility] Obesity Problem Active 2019-07-14 Arik good (disorder) 23:12:10 l Obesity [place] (disorder) Active Problem 07/14/2019 [facility] Obstructiv Problem Active 2019-07-14 M emoria e sleep 23:12:10 l apnea Asher syndrome Obstructiv (disorder) e sleep apnea syndrome (disorder) Active Problem 07/14/2019 [facility] Physical Problem Active 2019-07-14 Mem oria deconditio 23:12:10 l honey Physical Giovanni n (finding) deconditio honey (finding) Active Problem 07/14/2019 [facility] Pneumonia Problem Active 2019-07-14 Me moria (disorder) 23:12:10 l [place] Pneumonia (disorder) Active Problem 07/14/2019 [facility] Serratia Problem Active 2019-07-14 Mem oria (organism) 23:12:10 l Serratia Giovanni n (organism) Active Problem 07/14/2019 Problem added by Discern Expert. 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 Acute Acute Disease Resolve 2019-08-31 2019-08-31 [facility] decompensa decompensa d 07-12 00:00:00 10:46:32 Methodi alden heart alden heart 00:00: st failure failure 00 Chest pain Chest pain Disease Resolve 2019-08-31 2019-08-31 Richardson d 07-11 00:00:00 10:46:34 Method i 00:00: st 00 Hyponatrem Hyponatrem Disease Resolve 2019-08-31 2019-08-31 Richardson ia ia d 12-31 00:00:00 10:46:29 Method i 00:00: st 00 Allergies, Adverse Reactions, Alerts Allergy Allergy Status Severity Reaction(s) Onset Inactive Treating Comm ents Source Name Type Date Date Clinician Abeba Pelaez Active Unknown Nausea, [place] ty to Reaction 9-24 feels Methodi adverse 00:00: really st reaction 00 sick s to drug latex DA Active [facility] 6-09 Clear 00:00: Lynch 00 [facility] UNKNOWN DA Active [facility] ANTIBIOT 6-09 Clear IC 00:00: Lynch 00 [facility] Latex Propensi Active [facility] reaction [facility] Center s Amoxicil Propensi Active Itching [place] mari-Pot ty to 12-10 Methodi Clavulan adverse 00:00: st ate reaction 00 s to drug No Known No Known Active Memori a Medicati Medicati l on on Asher Allergie Allergie s s Social History Social Habit Start Date Stop Date Quantity Comments Source History of Current smoker [facility] tobacco use Sex Assigned At [facility] ethodist Alcohol intake 2019-09-15 2019-09-15 Current [facility]ist 00:00:00 00:00:00 non-drinker of alcohol (finding) Social History 2019-07-07 2019-07-07 [facility] 08:30:04 08:30:04 Smoking Status Start Date Stop Date Source Former smoker 2019-09-15 00:00:00 2019-09-15 00:00:00 Isiah Ericksonist Medications Ordered Filled Start Stop Current Ordering Indication Dosage Frequency Signature Comments Components Source Medication Medication Date Date Medication? Clinician (SIG) Name Name ondansetron 2019- No 8mg Q8H Take 1 Brien ston (ZOFRAN) 8 4-20 05-20 tablet (8 Met hodi MG tablet 00:00: 23:59 mg total) st 00 :00 by mouth every 8 (eight) hours as needed for nausea or vomiting for up to 30 days. capecitabin Rectal Take 2 [place] (XELODA) 09-05- adenocarcin tabs po Methodi 500 mg 00:00: 23:59 tho (HCC) bid on st chemo 00 :00 Wednesday tablet thru Wednesday on days of radiation therapy capecitabin 2019- No Take 2 Biren ston e (XELODA) 09-05- tabs po Metho di 500 mg 00:00: 00:[address] chemo 00 :00 Wednesday tablet thru Wednesday on days of radiation therapy lactulose 2019- No 20g QD Take 30 mL [place] 20 gram/30 09-01- (20 g Methodi mL solution 00:00: 23:59 total) by st 00 :00 mouth daily for 30 days. clopidogreL 2019- No 75mg QD Take 1 Brien ston (PLAVIX) 75 09-01 tablet (75 M ethodi mg tablet 00:00: 23:59 mg total) st 00 :00 by mouth daily for 30 days. amIODarone 2019- No 200mg QD Take 1 Brien ston (PACERONE) 09-01- tablet Method i 200 MG 00:00: 23:59 ([address] tablet 00 :00 total) by mouth daily for 30 days. diazePAM 2019-2019- No 5mg Q24H Take 5 mg Brien ston (VALIUM) 5 08-31-27 by mouth Meth callie MG tablet 15:30: 00:[address] 26 :00 needed for anxiety. clonIDINE 2019-2019- No .1mg Q6H Take 0.1 Brien ston (CATAPRES) -31 08-27 mg by Methodi 0.1 MG 15:30: 00:[address] tablet 26 :00 every 6 (six) hours as needed for high blood pressure (SBP>160). levalbutero 2019- 2020- No 2{puff} Q4H 2 puffs by Isiah l (XOPENEX 08-31 Other Methodi HFA) 45 15:30: 00:[address] mcg/actuati 26 :00 every 4 on inhaler (four) hours as needed. famotidine 2019- No 40mg QD Take 40 mg Joyce (PEPCID) 40 08-31 by mouth Met hodi MG tablet 15:30: 00:[address] 26 :00 acetaminoph 2019- 2020- No 325mg Q4H Take 325 Joyce en 08-31 mg by Methodi (TYLENOL) 15:30: 00:[address] 325 MG 26 :00 every 4 tablet (four) hours as needed for mild pain or fever. oxyCODone-a 2020- No acute pain 1{tbl} Q4H Take 1 Joyce cetaminophe 08-31 tablet by Me teddy lamb 15:30: 00:[address] (PERCOCET) 26 :00 every 4 5-325 mg (four) per tablet hours as needed for moderate pain (pain score of 4-6) .acute pain. atorvastati 2019- No 20mg QD Take 20 mg Isiah n (LIPITOR) 08-31 by mouth Met hodi 20 MG 15:30: 00:[address] tablet 26 :00 Default OP ins benzonatate 2019- No 100mg Q.[id number] Take 100 Joyce (TESSALON) 08-31 [id number] mg by Karine martinez 100 MG 15:30: 00:[address] capsule 26 :00 (three) times a day as needed for cough. budesonide 2020- No .5mg QD Take 0.5 [place] (PULMICORT) 08-31 mg by Method i 0.5 mg/2 mL 15:30: 00:[address] nebulizer 26 :00 on once solution daily. budesonide- 2020- No 2{puff} Q.5D Inhale 2 Joyce formoterol 08-31 puffs 2 Metho di (SYMBICORT) 15:30: 00:00 (two) st 160-4.5 26 :00 times a mcg/actuati day. on inhaler carvedilol 2020-0 2020- No 12.5mg Q.5D Take 12.5 Joyce (COREG) 2-27 02-27 mg by Methodi 12.5 MG 15:30: 00:[address] tablet 26 :00 (two) times a day with meals. ciprofloxac 2019-0 2020- No 500mg Q12H Take 500 Joyce in (CIPRO) -31 08-27 mg by Methodi 500 MG 15:30: 00:[address] tablet 26 :00 every 12 (twelve) hours. insulin 2020-0 2020- No Q.[id number] Inject [place] lispro -31 08- [id number] under the M ethodi (HumaLOG) 15:30: 00:[address] 100 unit/mL 26 :00 (three) injection times a day before meals. Sliding scale ipratropium 2020-0 2020- No 500ug Q.25D Take 500 Joyce (ATROVENT) -31 08-27 mcg by Method i 0.02 % 15:30: 00:[address] nebulizer 26 :00 on 4 solution (four) times a day as needed for wheezing or shortness of breath. predniSONE 2020-0 2020- No 20mg QD Take 20 mg Joyce (DELTASONE) 2-31 08- by mouth Met hodi 20 mg 15:30: 00:[address] tablet 26 :00 cholecalcif 2020-0 Yes 2000U QD Take 2,000 Joyce sami, 2-27 Units by Methodi vitamin D3, 15:30: mouth st (VITAMIN 20 daily. D3) 1,000 unit tablet ipratropium 2020-0 Yes 3mL Q.25D Take 3 mL Joyce -albuterol 2-27 by Methodi (DUO-NEB) 15:30: nebulizati st 0.5-2.5 20 on 4 mg/3 mL (four) nebulizer times a day as needed for wheezing. Lactobacill 2020-0 Yes 1{tbl} QD Take 1 [place] us 2-27 tablet by Methodi acidoph-L.b 15:30: mouth st ulgar 20 daily. (FLORANEX) 1 million cell tablet aspirin 2020-0 Yes 81mg QD Take 81 mg [place] (ECOTRIN) 08-31 by mouth Method i 81 MG 15:30: daily. st enteric 20 coated tablet ferrous 2020-0 Yes 325mg Q.[id number] Take 325 Joyce sulfate 325 08-31 [id number] mg by M ethodi (65 FE) MG 15:30: 3D mouth 3 st tablet 20 (three) times a day with meals. melatonin 3 2019-0 Yes 3mg QD Take 3 mg [place] mg tablet 08-31 by mouth Method i 15:30: nightly. st 20 tiotropium 2019-0 2020- No 1{capsu QD Place 1 Joyce (SPIRIVA) 08-31 le} puff (1 Method i 18 mcg per 00:00: 23:[address] inhalation 00 :00 total) capsule into inhaler and inhale once daily for 30 days. sucralfate 2019-0 2020- No 1g Q.25D Take 10 mL Joyce (CARAFATE) 08-31 (1 g Methodi 100 mg/mL 00:00: 23:59 total) by st suspension 00 :00 mouth 4 (four) times a day before meals and nightly for 30 days. sodium 2019-0 2020- No 1{spray Q.5D 1 spray [place] chloride 08-31 } into each Metho di (OCEAN) 00:00: 23:[address] 0.65 % 00 :00 (two) nasal spray times a day for 30 days. potassium 2019-0 2020- No 20meq Q.5D Take 2 [place] chloride 08-31 capsules Method i (MICRO-K) 00:00: 23:59 ([address] 10 MEQ CR 00 :00 total) by capsule mouth 2 (two) times a day for 30 days. pantoprazol 2019-0 2020- No 40mg Q.5D Take 1 Brien ston e 08-31 tablet (40 Methodi (PROTONIX) 00:00: 23:59 mg total) s t 40 MG EC 00 :00 by mouth 2 tablet (two) times a day for 30 days. losartan 2020-0 2020- No 12.5mg Q.5D Take 0.5 [place] (COZAAR) 25 08-31 tablets Meth callie MG tablet 00:00: 23:59 (12.[address] 00 :00 total) by mouth 2 (two) times a day for 30 days. isosorbide 2019- No 5mg Q.5D Take 1 [place] dinitrate 08-31 tablet (5 Meth callie (ISORDIL) 5 00:00: 23:59 mg total) st MG tablet 00 :00 by mouth 2 (two) times a day for 30 days. hydrocortis 2019- 2020- No Q.5D Insert Brien ston one 08-31 into the Methodi (ANUSOL-HC) 00:00: 23:59 rectum 2 s t 2.5 % 00 :00 (two) rectal times a cream day for 30 days. guaiFENesin 2019- No 600mg Q.5D Take 1 [place] (MUCINEX) 08-31 tablet Methodi 600 mg 00:00: 23:59 ([address] tablet 00 :00 total) by extended mouth 2 release (two) 12hr times a day for 30 days. docusate 2019- No 100mg Q.5D Take 1 [place] on sodium 08-31 capsule Methodi (COLACE) 00:00: 23:59 ([address] 100 MG 00 :00 total) by capsule mouth 2 (two) times a day for 30 days. amLODIPine 2019- No 2.5mg Q.5D Take 1 Brien ston (NORVASC) 08-31 tablet Methodi 2.5 mg 00:00: 23:59 (2.[address] tablet 00 :00 total) by mouth 2 (two) times a day for 30 days. furosemide 2019- 2020- No 40mg Q.5D Take 1 [place] (LASIX) 40 08-31 tablet (40 Me thodi mg tablet 00:00: 23:59 mg total) st 00 :00 by mouth 2 (two) times a day for 30 days. carvediloL 2020- No 6.25mg Q.5D Take 1 [place] (COREG) 08-31 tablet Methodi 6.25 MG 00:00: 23:59 (6.[address] tablet 00 :00 total) by mouth 2 (two) times a day for 30 days. budesonide 2019-0 2020- No Acute on .5mg Q.5D Take 2 mL Joyce (PULMICORT) 08-31 chronic (0.5 mg M ethodi 0.5 mg/2 mL 00:00: 23:59 combined total) by st nebulizer 00 :00 systolic nebulizati solution and on 2 (two) diastolic times a congestive day for 30 heart days. failure (HCC) arformotero 2019- 2020- No 15ug Q.5D Take 2 mL Joyce L (BROVANA) 08-31 (15 mcg Meth callie 15 mcg/2 mL 00:00: 23:59 total) by st solution 00 :00 nebulizati for on 2 (two) nebulizatio times a n day as needed (shortness of breath) for up to 30 days. atorvastati 2019-2019- No 20mg QD Take 1 Brien ston n (LIPITOR) 08-31 tablet (20 M ethodi 20 MG 00:00: 23:59 mg total) st tablet 00 :00 by mouth daily for 30 days. Default OP ins ipratropium 2019-2019- No Acute on .5mg Q.25D Take 2.5 Joyce (ATROVENT) 08-31 chronic mL (0.5 mg Methodi 0.02 % 00:00: 23:59 combined total) by s t nebulizer 00 :00 systolic nebulizati solution and on every 6 diastolic (six) congestive hours for heart 30 days. failure (HCC) Famotidine 2019-0 Yes 40 mg = 1 Me moria 40 MG Oral 1-08 tab, PO, l Tablet 19:58: Daily, 0 [place] [Pepcid] 00 Refill(s) Furosemide 2019-0 Yes 40 mg = 1 Me moria 40 MG Oral 1-08 tab, PO, l Tablet 19:58: Daily, 0 [place] 00 Refill(s) Acetaminoph 2020-0 Yes 1 tab, PO, Memoria en 325 MG / 1-08 Q4H, PRN l Hydrocodone 19:54: Pain Score Asher Bitartrate 00 4-6, .., 0 5 MG Oral Refill(s) Tablet Acetaminoph 2019-0 Yes 650 mg = 2 Memoria en 325 MG 1-08 tab, PO, l Oral Tablet 19:54: Q4H, PRN He rmann 00 Pain Score 1-3, 0 Refill(s) Albuterol 2020-0 Yes 3 mL, NEB, Me moria 0.833 MG/ML -08 QID, PRN l / 19:54: Respirator Asher Ipratropium 00 y Pathway, Grandin 0 0.167 MG/ML Refill(s) Inhalant Solution [DuoNeb] Aspirin 81 2020-0 Yes 81 mg = 1 Me moria MG Chewable -08 tab, PO, l Tablet 19:54: Daily, 0 [place] 00 Refill(s) ciprofloxac 2020-0 Yes 500 mg = 1 Memoria in 500 mg - tab, PO, l oral tablet 19:54: [id number], 0 [place] 00 Refill(s) ferrous 2020-0 Yes 325 mg = 1 Arik good sulfate 325 - tab, PO, l MG Oral 19:54: TID, 0 [place] Tablet 00 Refill(s) insulin 2019-0 Yes 4 unit, Memoria lispro 100 -08 SUB-Q, l units/mL 19:54: Sliding Giovanni n injectable 00 Scale, PRN solution Blood Glucose Results, 0 Refill(s) Melatonin 3 2020-0 Yes 3 mg = 1 Me moria MG Extended 07-12 tab, PO, l Release 19:54: Bedtime, 0 Herm chasity Tablet 00 Refill(s) predniSONE 2020-0 Yes 20 mg = 1 Me moria 20 mg oral - tab, PO, l tablet 19:54: Daily, 0 Asher 00 Refill(s) Famotidine 2020-0 No Notes: Memor ia 40 MG Oral 07-12 (Same as: l Tablet 17:30: Pepcid) [place] [Pepcid] 00 benzonatate 2020-0 Yes 100 mg = 1 Memoria 100 mg oral 08 cap, PO, l capsule 14:11: TID, PRN Giovanni n 00 Cough/Stewart estion, 0 Refill(s) Budesonide 2020-0 Yes = 2 mL, Arik good -08 NEB, BID, l 14:11: 0 [place] 00 Refill(s) Budesonide 2020-0 Yes 2 puff, Arik good 0.16 1-08 INHALATION l MG/ACTUAT / 14:11: , BID, # 6 Asher formoterol 00 gm, 0 fumarate Refill(s) 0.0045 MG/ACTUAT Metered Dose Inhaler Famotidine 2020-0 No 20 mg = 1 Me moria 20 MG Oral 1-08 tab, PO, l Tablet 14:11: Daily, 0 Asher 00 Refill(s) arformotero 2020-0 Yes = 1 ea, Mem oria l 0.0075 1-08 NEB, BID, l MG/ML 14:11: # 60 ea, 0 Giovanni n Inhalant 00 Refill(s) Solution [Brovana] Vitamin D3 2020-0 Yes 1,000 Memori a 1000 intl 1-08 IntlUnit = l units/10 mL 14:11: 10 mL, PO, [place] oral liquid 00 Daily, 0 Refill(s) Vitamin D3 2020-0 Yes 2,000 Memori a 2000 intl 1-08 IntlUnit = l units oral 14:11: 1 cap, PO, H [place] capsule 00 Daily, # 100 cap, 3 Refill(s) Ipratropium 2020-0 Yes 0.5 mg, Mem oria Grandin 0.2 1-08 NEB, QID, l MG/ML 14:11: PRN Asher Inhalant 00 wheezing, Solution # 25 ea, 0 Refill(s) 200 ACTUAT 2020-0 Yes 2 puff, Arik good Levalbutero 1-08 INHALATION l l 0.045 14:11: , Q4H, PRN Herm chasity MG/ACTUAT 00 Cough, Metered wheezing, Dose shortness Inhaler of breath, [Xopenex] # 15 gm, 2 Refill(s) Probiotic 2020-0 Yes 1 cap, PO, Me moria Formula 1-08 Daily, 0 l oral 14:11: Refill(s) Asher capsule 00 Furosemide 2020-0 No 20 mg = 1 Me moria 20 MG Oral 1-08 tab, PO, l Tablet 14:11: BID, 0 Asher 00 Refill(s) carvedilol 2020-0 Yes 12.5 mg = Me moria 12.5 mg 1-08 1 tab, PO, l oral tablet 14:02: BID, 0 Herm chasity 00 Refill(s) atorvastati 2020-0 Yes 20 mg = 1 M emoria n 20 mg 1-08 tab, PO, l oral tablet 14:02: Daily, 0 He rm Refill(s) rivaroxaban 2019-0 Yes 20 mg = 1 M emoria 20 mg oral 1-08 tab, PO, l tablet 14:02: QPM, 0 Refill(s) Furosemide 2019- No 40 mg = 1 Me moria 40 MG Oral 1-08 tab, PO, l Tablet 14:02: Daily, 0 Refill(s) Lasix 2019- No Notes: Memoria 1-07 (Same as: l 22:00: Lasix) May cause GI upset. Give with food or milk. Cipro No Notes: May Memori a -07 interfere l 14:00: w/enteral feedings - Take 1 hr before or 2 hrs after antacids, dairy pdt & minerals. On empty stomach. Prednisone No Notes: Memor ia 1-06 Take with l 15:00: food. cefepime + No Notes: Memor ia Sodium 1-06 (Same As: l Chloride 01:00: Maxipime) Herm chasity 0.9% IV 100 00 mL MEDICATION WASTE Product Size: 1000 mg Product Wasted: ___ mg cefepime No Notes: Memoria 1-06 (Same As: l 00:00: Maxipime) MEDICATION WASTE Product Size: 1000 mg Product Wasted: ___ mg Prednisone No Notes: Memor ia 1-05 Take with l 15:00: food. Aspirin 2019-0 No 81 mg, Memoria -05 Route: PO, l 15:00: Drug form: ECTAB, Daily, Dosing Weight 85, kg, Start date: 07/09/19 9:00:00 [facility] CHIE[facility], Duration: 30 day, Stop date: 08/07/19 9:00:00 [facility] CHIEF ferrous 2019- No Notes: Memoria sulfate 1-05 Give with l 15:00: food. iron elemental [id number] as ferrous sulfate Dose=___mg elemental iron Coreg No Notes: Memoria 1-05 Give with l 00:21: food. [place] 00 (Same As: Coreg) Acetaminoph No Notes: Arik good en 325 MG / 1-05 (Same as: l Hydrocodone 00:21: [place] Constance nn Bitartrate 00 325/5) Do 5 MG Oral not exceed Tablet 4gm/day of acetaminop hen. Acetaminoph No Notes: Do M emoria en 325 MG 1-05 not exceed l Oral Tablet 00:21: 4 gm/day. H ermann 00 (Same as: Tylenol) Hydralazine No Notes: Arik good 1-04 (Same as: l 22:44: Apresoline Asher 00 ) Push over 5 minutes Albuterol No Notes: Memori a 0.833 MG/ML - (Same as: l / 22:11: Duoneb) [place] Ipratropium 00 Grandin 0.167 MG/ML Inhalant Solution [DuoNeb] Melatonin 3 No Notes: Arik good MG Extended - (Same as: l Release 03:00: Melatonin) Herm chasity Tablet 00 Azithromyci No Notes: Arik good n -04 (Same As: l 00:00: Zithromax Asher 00 IV) Ceftriaxone No Notes: Arik good 1-04 (Same As: l 00:00: Rocephin). Asher 00 Use with 100 mL NS and infuse over 30 min MEDICATION WASTE Product Size: 1000 mg Product Wasted: ___ mg Xarelto No Notes: Memoria 1-03 (Same as: l 23:00: Xarelto) Asher 00 Administer with food Lasix 0 No Notes: Memoria 1-03 (Same as: l 16:00: Lasix) Sunflower 00 MEDICATION WASTE Product Size: 40 mg Product Wasted: ___ mg POLYETHYLEN No Notes: Arik good E GLYCOL 1-03 Dissolve l 3350 15:00: in 8 oz of Sunflower 00 water or juice. (Same as: Miralax) Aspirin 81 No Notes: Memor ia MG Chewable 1-03 Take with l Tablet 15:00: food. Lasix No 40 mg, Memoria 07-07 Route: l 15:00: IVP, Drug form: INJ, Daily, kg, Start date: 07/07/19 9:00:00 [facility] CHIEF, Duration: 30 day, Stop date: 08/05/19 9:00:00 [facility] CHIEF sennosides, 2019-0 No Notes: Arik good MCFP 07-07 (Same as: l 03:00: Senokot) Ranitidine 2019-0 No Notes: Memor ia 07-07 (Same l 03:00: as:Zantac) Take before or with meals chlorhexidi No Notes: Arik good ne 07-07 (Same As: l gluconate 03:00: Peridex) Herm chasity 1.2 MG/ML 00 Mouthwash Coreg No Notes: Memoria 07-07 Give with l 03:00: food. (Same As: Coreg) atorvastati No Notes: Arik good n 07-07 (Same As: l 03:00: Lipitor) Dextrose 2019-0 No 50 mL, Memoria 50% in 07-07 Route: l Water IV 02:36: IVP, Start Her date: 07/06/19 20:36:00 [facility] CHIEF, Duration: 30 day, Stop date: 08/05/19 20:35:00 [facility] CHIEF, PRN Blood Glucose Results, 0 glucagon No 1 mg, Memoria 07-07 Route: IV, l 02:36: Drug form: Asher 00 PDR/INJ, PRN, PRN Blood Glucose Results, Start date: 07/06/19 20:36:00 [facility]ORAT[facility] CHIEF, Duration: 30 day, Stop date: 08/05/19 20:35:00 [facility] CHIEF, 0 Humalog 2019-0 No Notes: Memoria 03 (Same as: l 02:34: Humalog) Roll in palms of hands gently; Do not shake vigorously . WASTE: F/P - Black; E - Municipal Trash Bin Stable for 28 days at room temperatur e. Expires in days from ____Date Humalog No Notes: Memoria - (Same as: l 02:33: Humalog) Asher 00 Roll in palms of hands gently; Do not shake vigorously . WASTE: F/P - Black; E - Municipal Trash Bin Stable for 28 days at room temperatur e. Expires in days from ____Date Humalog No Notes: Memoria 07-07 (Same as: l 02:31: Humalog) Asher 00 Roll in palms of hands gently; Do not shake vigorously . WASTE: F/P - Black; E - [facility] Stable for 28 days at room temperatur e. Expires in days from ____Date Humalog No Notes: Memoria 07-07 (Same as: l 02:30: Humalog) Sunflower 00 Roll in palms of hands gently; Do not shake vigorously . "Single Patient Use Only " WASTE: F/P - Black; E - [facility] Stable for 28 days at room temperatur e. Expires in days from ____Date Albuterol No Notes: Memori a 0.833 MG/ML 07-07 (Same as: l / 02:00: Duoneb) Asher Ipratropium 00 Grandin 0.167 MG/ML Inhalant Solution propofol 10 No Notes: If M emoria mg/mL 07-07 Diprivan - l (Titrate.) 00:48: change Constance nn IV 1,000 mg 00 bottle & tubing every 12 hr Per state nursing law propofol can only be given by a nurse if patient is intubated or being intubated (unless the nurse is a BAKERY ASSOCIATE). Same as: Diprivan Nurse re-entered to resolve scanning problem BD Normal No Notes: Memori a Saline 07-07 Same as: l Flush 00:01: BD Sunflower 00 Posiflush Sterile Sodium No 250 mL, Memoria Chloride 07-07 Route: l 0.9% IV 00:01: IVPB, Asher 00 Start date: 07/06/19 18:01:00 [facility] CHIE[facility], Duration: 30 day, Stop date: 08/05/19 18:00:00 [facility] CHIEF, PRN Line Flush, 0 methylPREDN No Notes: Arik good ISolone 07-06 (Same l SODium 23:56: as:Solu-ME Constance nn SUCCinate 00 DROL, A-Methapre d) Budesonide No Notes: Memor ia 0.25 MG/ML 07-06 (Same As: l Inhalant 23:48: Pulmicort) Her morocho Solution 00 Lasix No Notes: Memoria 07-06 (Same as: l 23:01: Lasix) Asher MEDICATION WASTE Product Size: 40 mg Product Wasted: ___ mg Docusate No Notes: Memoria 07-06 (Same as: l 23:00: Colace) Asher Enoxaparin No Notes: Memor ia 07-06 (Same as: l 23:00: Lovenox) Sunflower propofol 10 No Notes: If M emoria mg/mL 07-06 Diprivan - l (Titrate.) 22:58: change Constance nn IV 1,000 mg 00 bottle & tubing every 12 hr Per state nursing law propofol can only be given by a nurse if patient is intubated or being intubated (unless the nurse is a BAKERY ASSOCIATE). Same as: Diprivan Azithromyci No Notes: Arik good n 07-06 (Same As: l 22:22: Zithromax Sunflower IV) Ceftriaxone No Notes: Arik good 07-06 (Same As: l 22:22: Rocephin). Sunflower 00 Use with 100 mL NS and infuse over 30 min MEDICATION WASTE Product Size: 1000 mg Product Wasted: ___ mg Acetaminoph No Notes: Do M emoria en 07-06 not exceed l 22:18: 4 gm/day. Asher (Same as: Tylenol) Albuterol No Notes: Memori a 0.833 MG/ML 07-06 (Same as: l / 22:18: Duoneb) Asher Ipratropium 00 Grandin 0.167 MG/ML Inhalant Solution Bisacodyl No Notes: Memori a - (Same As: l 22:18: Dulcolax, Bisco-Lax) Fentanyl No 1,000 Memoria - microgram, l 22:18: 20 mL, Rate: Titrate, Start Dose: 50 microgram/ hr, Titration: Titrate by 25 micrograms /hour every 15 minutes, Goal(s): RASS goal of 0, Max Dose: 300 mcg/hr, Route: IV, Dosing Weight 90 kg, Total Volume: 20, Start date: 07/06/19 16:18:... Potassium No Notes: Memori a Chloride 07-06 (Same as: l 22:18: KCL) Infuse no faster than 10 mEq/hr if given peripheral ly. sodium No Notes: Memoria phosphate 07-06 Infuse l 22:18: over 4 hour. Do not infuse phosphorou s concurrent ly in the same line as TPN or IVF that contains calcium. For double lumen central lines, phosphorou s may be infused in a separate lumen from TPN. potassium No Notes: Memori a phosphate 07-06 (Same as: l 22:18: K Phosphate. ) Do not infuse phosphorou s concurrent ly in the same line as TPN or IVF that contains calcium. For double lumen central lines, phosphorou s may be infused in a separate lumen from TPN. 1 mMol phoshate has 1.47 mEq potassium Infuse over 4 hours potassium No Notes: Memori a phosphate-s - (Same as: l odium 22:18: Phos-NaK) phosphate 00 Each 1.5 250 mg-280 gm pkt has mg-160 mg 250mg oral powder phosphorou for s. Mix reconstitut w/2.5oz ion water and stir. Magnesium No Notes: Memori a Sulfate 07-06 WASTE: F/P l 22:18: - Sink; E - [facility] Magnesium No Notes: Memori a Oxide 07-06 (Same as: l 22:18: Mag-Ox Asher 00 400) Magnesium oxide [id number] g elemental magnesium Dose=____m g magnesium oxide (___mg elemental magnesium) Calcium No Notes: Memoria Gluconate 07-06 WASTE: F/P l 22:18: - Sink; E Asher 00 - [facility] Calcium No Notes: Memoria Carbonate 07-06 (Same As: l 500 MG 22:18: Tums) Sunflower Chewable 00 Calcium Tablet Carbonate 500 mg = 200 mg elemental calcium Dose = mg calcium carbonate ( mg elemental calcium) chlorhexidi No Notes: Arik good ne 07-06 (Same As: l gluconate 22:18: Peridex) Herm chasity 1.2 MG/ML 00 Mouthwash ipratropium Yes 500ug Take [address] (ATROVENT) 1-01 mcg by [facility] - 0.02 % 10:42: nebulizati Medic al nebulizer 57 on 4 Center solution (four) times daily as needed for Wheezing (shortness of breath). arformotero 2019- Yes 15ug Q.5D Take [address] [facility] (BROVANA) 1-01 mcg by [facility] - 15 mcg/2 mL 10:42: nebulizati Medical nebulizer 57 on 2 (two) Cent er solution times daily. diazePAM 2020- No 5mg Take [address] [facility] (VALIUM) 5 07-05 by mouth Luke s - MG tablet 10:37: 00:00 every Medica l 04 :00 night as Center needed for Anxiety. furosemide 2019- 2020- No 40mg QD Take [address] [facility] (LASIX) 40 07-05 by mouth Luke s - MG tablet 10:35: 00:00 daily. Medic al 20 :00 Center famotidine Yes 20mg QD Take 1 [facility] (PEPCID) 20 07-05 tablet (20 Jazmin kes - MG tablet 00:00: mg total) Med ical 00 by mouth Center daily. budesonide- 2019-0 Yes 2{puff} Q.5D Inhale [address] [facility] [address] formoterol 1-01 puffs by [facility] - (SYMBICORT) 00:00: mouth via Karine arias 160-4.5 00 inhaler 2 Center mcg/actuati (two) on inhaler times daily. benzonatate 2019-0 Yes 100mg Take [address] [facility] (TESSALON) - capsule [facility] - 100 MG 00:00: (100 mg Medical capsule 00 total) by Center mouth 3 (three) times daily as needed for Cough. metoprolol 2019-0 Yes 12.5mg Q.5D Take 0.[address] (TOPROL-XL) - tablets [facility] - 25 MG 24 hr 00:00: (12.5 mg Me dical tablet 00 total) by Center mouth 2 (two) times daily For your heart. budesonide 2019-0 Yes .5mg Q.5D Take [address] (PULMICORT) 07-05 (0.5 mg [facility] - 0.5 mg/2 mL 00:00: total) by edJoroto nebulizer 00 [address]iz[address] Cent er solution on 2 (two) times daily. furosemide Yes 20mg Q.5D Take 1 [facility] (LASIX) 20 07-05 tablet (20 Allyn es - MG tablet 00:00: mg total) Med ical 00 by mouth 2 Center (two) times daily Note change in dose. amoxicillin 2019- No 1{tbl} Take [address] -clavulanat 07-05 tablet by Jazmin carcamos - e 00:00: 23:59 mouth Medical (AUGMENTIN) 00 :00 every 12 Cent er 500-125 mg (twelve) per tablet hours for 2 days antibiotic s. furosemide 2019- No 20mg QD Take [address] [facility] (LASIX) 20 07-05- tablet (20 Jazmin kes - MG tablet 00:00: 00:00 mg total) Me dical 00 :00 by mouth Center daily Note change in dose - OK to split 40 mg. carvedilol 2018-07- No 3.125mg Take 3.[address] [facility] (COREG) 2-31 12-31 mg by [facility] - 3.125 MG 17:19: 00:00 mouth Medical tablet 35 :00 every 12 Center (twelve) hours. amiodarone 2018-07- No 200mg Q.5D Take [address] (PACERONE) 2-31 12-31 mg by [facility] - 200 MG 17:19: 00:00 mouth 2 Medical tablet 35 :00 (two) Center times daily. polyvinyl 2018-07 2020- No 1[drp] Q.25D Place [address] alcohol -30 drop into [facility] - (LIQUIFILM 00:00: 23:59 both eyes M edical TEARS) 1.4 00 :00 4 (four) Cente r % times ophthalmic daily for solution 30 days. levalbutero 2018-07 Yes 2{puff} Inhale [address] [facility] [address] [facility] (XOPENEX 2-28 puffs by [facility] - HFA) 45 11:40: mouth via Medic al mcg/actuati 49 inhaler Cente r on inhaler every 4 (four) hours as needed for Wheezing. rivaroxaban 2018-07 Yes Take by [facility] (XARELTO) 2-28 mouth [facility] - 20 mg Tab 11:40: daily with Me dical tablet 49 dinner. Center Lactobac 2018-[address] [facility] St no.41/Bifid 2-28 mouth. [facility] - obact no.7 11:40: Medical (PROBIOTIC- 49 Center 10 ORAL) cholecalcif 2018-07 Yes 2000U QD Take 2,[address] [facility] sami, 2-28 Units by [facility] - vitamin D3, 11:40: mouth Medic al 2,000 unit 48 daily. Center Tab azithromyci 2018-07- No Take first Joyce n 07-19 2 tablets Methodi (ZITHROMAX) 00:00: 23:59 together, st 250 MG 00 :00 then 1 tablet every day until finished. XARELTO 20 2018-07 2020- No 20mg QD Take 20 mg [facility] mg tablet 07-11 by mouth Metho di 00:00: 00:[address] 00 :00 evening. BROVANA 15 2018-07 2020- No 15ug Q.5D 15 mcg 2 [place] mcg/2 mL 08-31 (two) [facility] solution 00:00: 00:[address] for 00 :00 day as nebulizatio needed. n furosemide 2018-07- No 40mg QD 40 mg [place] (LASIX) 20 - daily. Method i mg tablet 00:00: 00:00 st 00 :00 aspirin-amari 2018-07 2019- No 81mg Take 81 mg Joyce cium 0-19 11-19 by mouth. [facility] carbonate 00:00: 23:59 st 81 mg-300 00 :00 mg calcium(777 mg) tablet aspirin 2018-07 No 81mg QD Take 1 [facility] (ECOTRIN) 0-19 11-18 tablet (81 Met hodi 81 MG 00:00: 23:59 mg total) st enteric 00 :00 by mouth coated daily for tablet 30 days. L. 2018-07 No 2{capsu QD Take 2 Joyce acidophilus 0-19 11-18 le} capsules Met hodi ,casei,rham 00:00: 23:59 by mouth s t nosus (BIO 00 :00 daily for K PLUS) 50 30 days. billion cell capsule,del ayed release(DR/ EC) capsule aspirin 2018-07 162mg QD Take 162 [place] (ECOTRIN) 0-18 10-18 mg by [facility] 81 MG 13:31: 00:[address] enteric 43 :00 daily. coated tablet arformotero 2018-07 15ug Q.5D Take 15 [place] (BROVANA) 0-18 10-18 mcg by Metho di 15 mcg/2 mL 13:31: 00:[address] solution 43 :00 on 2 (two) for times a nebulizatio day. n budesonide 2018-07 No .5mg QD Take 0.5 [place] (PULMICORT) 0-18 10-18 mg by Method i 0.5 mg/2 mL 13:31: 00:[address] nebulizer 43 :00 on once solution daily. Unknown dose predniSONE 2018-07 Take 4 [place] (DELTASONE) 0-18 11-18 tabs [facility] 10 mg 00:00: 23:59 (40mg) st tablet 00 :00 once daily X5 days, then take 3 tabs X5 days, then take 2 tabs X5 days, then take 1 tab X5 days doxycycline 2018-07 No 100mg Q.5D Take 1 [place] (VIBRA-TABS 0-18 10-25 tablet Metho di ) 100 MG 00:00: 23:59 ([address] tablet 00 :00 total) by mouth 2 (two) times a day for 7 days. HYDROcodone 2019-1 2019- No acute pain 1{tbl} Q6H Take 1 Joyce -acetaminop 0-18 10-23 tablet by Tx thodi hen (NORCO) 00:00: 23:[address] 5-325 mg 00 :00 every 6 per tablet (six) hours as needed for severe pain for up to 5 days .Acute Pain. Max Daily Amount: 4 tablets valsartan 2018-07 No 320mg QD Take 320 [place] (DIOVAN) 0-16 02-27 mg by Methodi 320 MG 00:00: 00:[address] tablet 00 :00 daily. pitavastati 2018-07- No 2mg QD Take 2 mg Joyce n calcium 0-12 10-12 by mouth Metho di (LIVALO) 2 14:26: 00:[address] mg tablet 41 :00 fluticasone 2018-07 No 100ug QD Inhale 100 Joyce -umeclidin- 0-10 11-09 mcg daily Me thodi vilanter 00:00: 23:[address] (TRELEGY 00 :00 days. ELLIPTA) 100-62.5-25 mcg blister with device azithromyci 2018-07 No 500mg QD Take 2 [place] n 0-10 10-18 tablets [facility] (ZITHROMAX) 00:00: 00:00 ([address] 250 MG 00 :00 total) by tablet mouth daily for 5 days. Take 2 tablets the first day, then 1 tablet daily for 4 days. predniSONE 2018-07 No 40mg QD Take 2 [place] (DELTASONE) 0-10 10-18 tablets Meth callie 20 mg 00:00: 00:00 ([address] tablet 00 :00 total) by mouth daily for 5 days. furosemide 2018-07 No 40mg QD Take 1 [place] (LASIX) 40 0-10 10-18 tablet (40 Me thodi mg tablet 00:00: 00:00 mg total) st 00 :00 by mouth daily. guaiFENesin 2018-07- No 600mg Q.5D Take 1 [place] (MUCINEX) 0-10 10-12 tablet Methodi 600 mg 00:00: 00:00 ([address] tablet 00 :00 total) by extended mouth 2 release (two) 12hr times a day. predniSONE 2018- No Take 3 [place] (DELTASONE) 04-03 10-07 tablets Meth callie 10 mg 00:00: 23:[address] tablet 00 :00 1 day, 2 tablets daily for 3 days, 1 tablet daily for 3 days amLODIPine 2018- No 5mg Q.5D Take 5 mg [place] (NORVASC) 5 04-02 by mouth 2 M ethodi mg tablet 15:40: 00:00 (two) st 16 :00 times a day. carvedilol 2018- No 3.125mg Q.5D Take 3.125 [facility] (COREG) 04-02 mg by [facility] 6.25 MG 15:40: 00:[address] tablet 16 :00 (two) times a day with meals. NIFEdipine 2018- No 30mg Q.5D Take 1 [place] XL 04-02 tablet (30 [facility] (PROCARDIA 00:00: 23:59 mg total) s t XL) 30 MG 00 :00 by mouth 2 24 hr (two) tablet times a day for 90 days. rosuvastati 2018- No 5mg QD Take 1 [facility] n (CRESTOR) 04-02 tablet (5 Me thodi 5 MG tablet 00:00: 23:59 mg total) st 00 :00 by mouth nightly for 90 days. ipratropium 2019- No .5mg [id number] Take 2.5 [facility] (ATROVENT) 04-02 [id number] mL (0.5 mg Methodi 0.02 % 00:00: 23:59 3D total) by st nebulizer 00 :00 nebulizati solution on every 6 (six) hours while awake for 90 days. carvedilol 2018- No 6.25mg Q12H Take 1 [place] (COREG) 04-02 tablet Method[facility] 6.25 MG 00:00: 23:59 (6.[address] tablet 00 :00 total) by mouth every 12 (twelve) hours for 60 days. valsartan 2019- No 160mg Q.5D Take 1 [place] (DIOVAN) 04-02 10-18 tablet [facility] 160 MG 00:00: 00:00 ([address] tablet 00 :00 total) by mouth every 12 (twelve) hours for 60 days. pantoprazol 2018- No 40mg Q.5D Take 1 Brien ston e 04-02 10-12 tablet (40 [facility] (PROTONIX) 00:00: 00:00 mg total) s t 40 MG EC 00 :00 by mouth 2 tablet (two) times a day for 90 days. arformotero 2018- No 15ug Q.5D Take 2 mL Joyce l (BROVANA) 04-02 10-10 (15 mcg Meth callie 15 mcg/2 mL 00:00: 00:00 total) by st solution 00 :00 nebulizati for on 2 (two) nebulizatio times a n day for 90 days. budesonide 2018- No .5mg QD Take 2 mL [place] (PULMICORT) 04-02 10-10 (0.5 mg Meth callie 0.5 mg/2 mL 00:00: 00:00 total) by st nebulizer 00 :00 nebulizati solution on once daily for 90 days. predniSONE 2018- No 10mg Take 10 mg [facility] (DELTASONE) 03-26 by mouth Met hodi 10 mg 00:00: 00:[address] tablet 00 :00 Instructio ns. Take 4 tablet daily for 3 days,start ing on 03/26/2019, then 3 tablet daily for 3 days, then 2 tablet daily for 3 days,then 1 tablet daily for 3 days. levalbutero 2019- No 2{puff} Q4H Inhale 2 Joyce l (XOPENEX 6-16 10-18 puffs Methodi HFA) 45 00:00: 00:[address] mcg/actuati 00 :00 (four) on inhaler hours as needed. carvedilol 2018- No 3.125mg Q12H Take 3.125 [facility] (COREG) 6-16 09-25 mg by Methodi 3.125 MG 00:00: 00:[address] tablet 00 :00 every 12 (twelve) hours. MULTAQ 400 2018- No 400mg Q.5D Take 400 [place] mg tablet 6-16 09-25 mg by Methodi 00:00: 00:[address] 00 :00 (two) times a day. amLODIPine No 10mg QD Take 10 mg [facility] (NORVASC) 11-25 by mouth Metho di 10 mg 00:00: 00:[address] tablet 00 :00 clopidogrel No 75mg QD Take 75 mg [facility] (PLAVIX) 75 11-25 by mouth Met hodi mg tablet 00:00: 00:[address] 00 :00 omeprazole No 20mg QD Take 20 mg [facility] (PriLOSEC) 09-30 by mouth Meth callie 20 MG 00:00: 00:[address] capsule 00 :00 before lunch. valsartan No 320mg QD Take 320 [place] (DIOVAN) 09-30 mg by [facility] 320 MG 00:00: 00:[address] tablet 00 :00 nightly. Vital Signs Vital Name Observation Time Observation Value Comments Source Systolic blood 2019-09-13 14:39:00 160 mm[Hg] Zoilato n [facility] pressure Diastolic blood 2019-09-13 14:39:00 70 mm[Hg] Kiel on [facility] pressure Heart rate 2019-09-13 14:39:00 78 /min Richardson [facility] Body temperature 2019-09-13 14:39:00 36.78 [facility] ton [facility] Respiratory rate 2019-09-13 14:39:00 19 /min Zoila melany [facility] Body height 2019-09-13 14:39:00 149.9 cm Richardson [facility] Body weight 2019-09-13 14:39:00 77.973 kg Richardson [facility] BMI 2019-09-13 14:39:00 34.72 kg/m2 Richardson [facility] Oxygen saturation in 2019-09-13 14:39:00 95 /min Richardson [facility] Arterial blood by Pulse oximetry Temperature Oral (F) 2019-07-12 18:03:00 97.3 F [facility] Heart Rate 2019-07-12 18:03:00 [facility] Respitory Rate 2019-07-12 18:03:00 Memori al Asher Systolic (mm Hg) 2019-07-12 18:03:00 Arik rial Sunflower Diastolic (mm Hg) 2019-07-12 18:03:00 Mem orial Asher Respitory Rate 2019-07-12 16:09:00 Memori al Asher Temperature Oral (F) 2019-07-12 14:20:00 97.7 F [facility] Heart Rate 2019-07-12 14:20:00 [facility] Respitory Rate 2019-07-12 14:20:00 Memori al [place] Systolic (mm Hg) 2019-07-12 14:20:00 Arik rial Sunflower Diastolic (mm Hg) 2019-07-12 14:20:00 Mem orial Asher Temperature Oral (F) 2019-07-12 10:00:00 97.5 F [facility] Systolic (mm Hg) 2019-07-12 10:00:00 Arik rial Asher Diastolic (mm Hg) 2019-07-12 10:00:00 Mem orial Asher Heart Rate 2019-07-12 02:00:00 [facility] Height 2019-07-09 22:01:00 149.86 cm [facility] Weight 2019-07-09 22:01:00 [facility] BMI Calculated 2019-07-09 22:01:00 Memori al Asher Height 2019-07-07 16:10:00 149.86 cm [facility] Height 2019-07-07 15:31:00 149.86 cm [facility] Weight 2019-07-07 00:42:00 [facility] BMI Calculated 2019-07-07 00:42:00 Memori al Asher Weight 2019-07-06 23:43:00 [facility] BMI Calculated 2019-07-06 23:43:[facility] Heart rate 2019-07-05 08:15:00 86 /min [facility] Respiratory rate 2019-07-05 08:15:00 20 /min [facility] Oxygen saturation in 2019-07-05 08:15:00 99 /min [facility] Arterial blood by Medical Ce nter Pulse oximetry Systolic blood 2019-07-05 06:50:00 165 mm[Hg] [facility] Diastolic blood 2019-07-05 06:50:00 74 mm[Hg] [facility] Body temperature 2019-07-05 06:50:00 36.61 [facility] Body weight Measured 2019-07-05 06:28:00 85.5 kg [facility] BMI 2019-07-05 06:28:00 38.07 kg/m2 [facility] Body height 2019-06-30 20:23:00 149.9 cm [facility] Procedures Procedure Date / Time Performing Source Performed Clinician HC COMPLETE BLD COUNT W/AUTO DIFF 2019-08-31 Jasper Shailesh KarineAndrew Richardson 06:20:00 [facility] B NATRIURETIC PEPTIDE 2019-08-31 Jasper Shailesh KarineAndrew Richardson 06:20:00 [facility] BASIC METABOLIC PANEL 2019-08-31 Jasper Shailesh KarineAndrew Richardson 04:00:00 [facility] MAGNESIUM LEVEL 2019-08-31 JasperShaileshAndrew Richardson 04:00:00 [facility] ESTIMATED GFR 2019-08-31 Jasper Shailesh KarineAndrew Richardson 04:00:00 [facility] XR CHEST 1 VW PORTABLE 2019-08-31 ShivaniKrisAndrew Richardson 00:34:17 [facility] MRI RECTAL W WO CONTRAST 2019-08-30 Stacey Barros Richardson 19:35:[address] ABDOMEN PELVIS WO CONTRAST 2019-08-30 [facility] [facility] 08:24:36 [facility] HC COMPLETE BLD COUNT W/AUTO DIFF 2019-08-30 Jasper Shailesh MiltonAndrew Richardson 06:00:00 [facility] BASIC METABOLIC PANEL 2019-08-30 Jasper Shailesh MilotnAndrew Richardson 04:00:00 [facility] ESTIMATED GFR 2019-08-30 Jasepr Shailesh KarineAndrew Richardson 04:00:00 [facility] HC COMPLETE BLD COUNT W/AUTO DIFF 2019-08-29 Jasper Shailesh KarineAndrew Richardson 05:45:00 [facility] BASIC METABOLIC PANEL 2019-08-29 Jasper Shailesh KarineAndrew Richardson 04:00:00 [facility] ESTIMATED GFR 2019-08-29 Jasper Shailesh KarineAndrew Richardson 04:00:00 [facility] HC COMPLETE BLD COUNT W/AUTO DIFF 2019-08-28 Jasper Shailesh KarineAndrew Richardson 04:50:00 [facility] BASIC METABOLIC PANEL 2019-08-28 Jasper Shailesh KarineAndrew Richardson 04:50:00 [facility] ESTIMATED GFR 2019-08-28 Jasper Shailesh MiltonAndrew Richardson 04:50:00 [facility] HC COMPLETE BLD COUNT W/AUTO DIFF 2019-08-27 Rod Fontanez Richardson 14:15:00 Luis Alfredo [facility] BASIC METABOLIC PANEL 2019-08-27 Rod Fontanez Richardson 14:00:00 Bharatkkinza [facility] ESTIMATED GFR 2019-08-27 Rod Fontanez Richardson 14:00:00 Bharatkumar [facility] HEMOGLOBIN & HEMATOCRIT 2019-08-26 Celina Elkins Richardson 23:20:00 Bucayu [facility] SODIUM LEVEL 2019-08-26 Rod Fontanez Richardson 15:20:00 Bharatkumar [facility] BASIC METABOLIC PANEL 2019-08-26 Shailesh Hutchinson Richardson 05:40:00 [facility] B NATRIURETIC PEPTIDE 2019-08-26 Shailesh Hutchinson Richardson 05:40:00 [facility] MAGNESIUM LEVEL 2019-08-26 Shailesh Hutchinson Richardson 05:40:00 [facility] ESTIMATED GFR 2019-08-26 Shailesh Hutchinson Richardson 05:40:00 [facility] CBC WITH PLATELET AND DIFFERENTIAL 2019-08-26 [facility], Kris Joyce 05:40:00 [facility] PROTHROMBIN TIME WITH INR 2019-08-26 [facility], Kris Rocha n 05:40:00 [facility] PARTIAL THROMBOPLASTIN TIME (PTT) 2019-08-26 [facility], Kris Morales Joyce 05:40:00 [facility] MANUAL DIFFERENTIAL 2019-08-26 [facility], Kris Snowden Joyce 05:40:00 [facility] THYROID PEROXIDASE ANTIBODY 2019-08-25 Ben Perez ton 05:38:00 Gaston Garcia HC COMPLETE BLD COUNT W/AUTO DIFF 2019-08-25 Shailesh Hutchinson Joyce 05:38:00 [facility] BASIC METABOLIC PANEL 2019-08-25 Shailesh Hutchinson Richardson 05:38:00 [facility] B NATRIURETIC PEPTIDE 2019-08-25 Shailesh Hutchinson Richardson 05:38:00 [facility] MAGNESIUM LEVEL 2019-08-25 Shailesh Hutchinson Richardson 05:38:00 [facility] CARCINOEMBRYONIC ANTIGEN (CEA) 2019-08-25 Wilfred Damian 05:38:00 Paxton Garcia ESTIMATED GFR 2019-08-25 Wilfred Damian 05:38:00 Paxton [facility] SURGICAL PATHOLOGY REQUEST 2019-08-24 Shailesh Hutchinson [place] 10:11:00 [facility] SURGICAL PATHOLOGY REQUEST 2019-08-24 Shailesh Hutchinson [place] 09:11:00 [facility] COLONOSCOPY 2019-08-24 Baron Ervin 07:53:00 [facility] HC COMPLETE BLD COUNT W/AUTO DIFF 2019-08-24 Shailesh Hutchinson Richardson 04:45:00 [facility] B NATRIURETIC PEPTIDE 2019-08-24 Shailesh Hutchinson Richardson 04:45:00 [facility] BASIC METABOLIC PANEL 2019-08-24 Shailesh Hutchinson Richardson 04:00:00 [facility] MAGNESIUM LEVEL 2019-08-24 Shailesh Hutchinson Joyce 04:00:00 [facility] ESTIMATED GFR 2019-08-24 Shailesh Hutchinson Richardson 04:00:00 [facility] US THYROID 2019-08-23 Zand, Ben Richardson 09:30:02 Gaston [facility] HC COMPLETE BLD COUNT W/AUTO DIFF 2019-08-23 Shailesh Hutchinson Richardson 06:05:00 [facility] B NATRIURETIC PEPTIDE 2019-08-23 Shailesh Hutchinson Richardson 06:05:00 [facility] BASIC METABOLIC PANEL 2019-08-23 Shailesh Hutchinson Richardson 04:00:00 [facility] MAGNESIUM LEVEL 2019-08-23 Shailesh Hutchinson Richardson 04:00:00 [facility] THYROID STIMULATING HORMONE 2019-08-23 Zand, Ben [facility] ton 04:00:00 Gaston [facility] T4, FREE 2019-08-23 nd, Ben Richardson 04:00:00 Gaston [facility]ist T3 2019-08-23 nd, Ben Richardson 04:00:00 Gaston Garcia ESTIMATED GFR 2019-08-23 nd, Ben Richardson 04:00:00 Gaston [facility] CBC WITH PLATELET AND DIFFERENTIAL 2019-08-22 Shailesh Hutchinson Richardson 06:05:00 [facility] B NATRIURETIC PEPTIDE 2019-08-22 Shailesh Hutchinson Richardson 06:05:00 [facility] MANUAL DIFFERENTIAL 2019-08-22 Shailesh Hutchinson Richardson 06:05:00 [facility] BASIC METABOLIC PANEL 2019-08-22 Shailesh Hutchinson Richardson 04:00:00 [facility] MAGNESIUM LEVEL 2019-08-22 Shailesh Hutchinson Richardson 04:00:00 [facility] ESTIMATED GFR 2019-08-22 Shailesh Hutchinson Joyce 04:00:[address] HEAD WO CONTRAST 2019-08-21 Kris Parrish 11:33:57 [facility] ECG 12-LEAD 2019-08-21 Kris Parrish 09:38:36 [facility] EP CARDIOVERSION 2019-08-21 [facility] HC COMPLETE BLD COUNT W/AUTO DIFF 2019-08-21 JasperShaileshAndrew Richardson 04:48:00 [facility] B NATRIURETIC PEPTIDE 2019-08-21 JasperShaileshAndrew Richardson 04:48:00 [facility] POC GLUCOSE 2019-08-21 JasperShaileshAndrew Richardson 04:45:00 [facility] BASIC METABOLIC PANEL 2019-08-21 JasperShaileshAndrew Richardson 04:00:00 [facility] PHOSPHORUS LEVEL 2019-08-21 HutchinsonShaileshAndrew Richardson 04:00:00 [facility] MAGNESIUM LEVEL 2019-08-21 JasperShaileshAndrew Richardson 04:00:00 [facility] ESTIMATED GFR 2019-08-21 JasperShaileshAndrew Richardson 04:00:00 [facility] PREPARE RBC 2019-08-20 [facility] 09:[facility]00 [facility] ANTI XA, UNFRACTIONATED 2019-08-20 [facility], Kris Joyce 05:49:00 [facility] CBC HEMOGRAM 2019-08-20 [facility], Kris Joyce 05:49:00 [facility] HC COMPLETE BLD COUNT W/AUTO DIFF 2019-08-19 JasperShaileshAndrew Richardson 05:20:00 [facility] BASIC METABOLIC PANEL 2019-08-19 J[facility] 05:20:00 [employer]ianist B NATRIURETIC PEPTIDE 2019-08-19 [facility] 05:20:00 [employer]ist MAGNESIUM LEVEL 2019-08-19 [facility] 05:20:00 [employer] ESTIMATED GFR 2019-08-19 [facility] 05:20:00 [employer]ianist ANTI XA, UNFRACTIONATED 2019-08-19 [facility]00 Sabianist ANTI XA, UNFRACTIONATED 2019-08-18 [facility] Joyce 22:10:00 Sabianist ANTI XA, UNFRACTIONATED 2019-08-18 [facility] Joyce 15:50:00 Sabianist ANTI XA, UNFRACTIONATED 2019-08-18 [facility] Joyce 05:49:00 Sabianist HC COMPLETE BLD COUNT W/AUTO DIFF 2019-08-18 Jasper Shailesh MiltonAndrew Richardson 04:00:00 Sabianist BASIC METABOLIC PANEL 2019-08-18 Shailesh HutchinsonAndrew Richardson 04:00:00 Sabianist B NATRIURETIC PEPTIDE 2019-08-18 Shailesh Hutchinson Richardson 04:00:00 Sabianist MAGNESIUM LEVEL 2019-08-18 Shaliesh Hutchinson Richardson 04:00:00 Sabianist ESTIMATED GFR 2019-08-18 Shailesh Hutchinson Richardson 04:00:00 Sabianist ANTI XA, UNFRACTIONATED 2019-08-17 [facility] Joyce 23:23:00 Sabianist ANTI XA, UNFRACTIONATED 2019-08-17 [facility] 15:24:00 Sabianist XR CHEST 1 VW PORTABLE 2019-08-17 [facility] 10:20:00 Sabianist ANTI XA, UNFRACTIONATED 2019-08-17 [facility] 08:27:00 Sabianist HC COMPLETE BLD COUNT W/AUTO DIFF 2019-08-17 Shailesh HutchinsonAndrew Richardson 04:24:00 Sabianist BASIC METABOLIC PANEL 2019-08-17 HutchinsonShaileshAndrew Richardson 04:24:00 Sabianist B NATRIURETIC PEPTIDE 2019-08-17 HutchinsonShailesh Richardson 04:24:00 Sabianist MAGNESIUM LEVEL 2019-08-17 HutchinsonShaileshAndrew Richardson 04:24:00 Sabianist FERRITIN LEVEL 2019-08-17 [facility] Joyce 04:24:00 Sabianist TOTAL IRON BINDING CAPACITY 2019-08-17 [facility] Kris mosley 04:24:00 Sabianist ESTIMATED GFR 2019-08-17 HutchinsonShaileshAndrew Richardson 04:24:00 Sabianist ANTI XA, UNFRACTIONATED 2019-08-16 [facility] Kris Joyce 23:38:00 Sabianist PARTIAL THROMBOPLASTIN TIME (PTT) 2019-08-16 [facility] Joyce 23:38:00 Sabianist PROTHROMBIN TIME WITH INR 2019-08-16 [facility], rKis Rocha n 23:38:00 Sabianist BASIC METABOLIC PANEL 2019-08-16 Rogelio [facility] 12:55:00 Patrese Sabianist MAGNESIUM LEVEL 2019-08-16 Agtheresa [facility] 12:55:00 Patrese Sabianist ESTIMATED GFR 2019-08-16 [facility] 12:55:00 Patrese Sabianist HC COMPLETE BLD COUNT W/AUTO DIFF 2019-08-16 [facility] 05:[facility]00 Sabianist BASIC METABOLIC PANEL 2019-08-16 [facility] 05:15:00 Sabianist MAGNESIUM LEVEL 2019-08-16 [facility] 05:15:00 Sabianist ESTIMATED GFR 2019-08-16 [facility] 05:15:00 Sabianist XR CHEST 1 VW PORTABLE 2019-08-15 Baldwin, Phuongdung [place] 10:24:00 Izabella Sabianist HC COMPLETE BLD COUNT W/AUTO DIFF 2019-08-15 Baldwin, Jacqueline dung Richardson 05:00:00 Izabella Sabianist BASIC METABOLIC PANEL 2019-08-15 Baldwin, Phuongdung Richardson 04:00:00 Izabella Sabianist HEPATIC FUNCTION PANEL 2019-08-15 Baldwin, Phuongdung [place] 04:00:00 Izabella Sabianist ESTIMATED GFR 2019-08-15 Baldwin, Phuongdung Richardson 04:00:00 Izabella Sabianist LACTIC ACID LEVEL, SEPSIS - NOW 2019-08-15 Baldwin, Phuongdu ng Richardson AND REPEAT 2X EVERY 3 HOURS 04:00:00 Izabella Meth odist ARTERIAL BLOOD GAS 2019-08-14 [facility] 23:46:00 Sabianist RESPIRATORY PATHOGEN PANEL 2019-08-14 Evans, Lisseth Kiel on 23:45:00 Sabianist BLOOD CULTURE, AEROBIC & ANAEROBIC 2019-08-14 Baldwin, Phuon gdung Richardson 23:45:00 Izabella Sabianist LACTIC ACID LEVEL, SEPSIS - NOW 2019-08-14 Aguilliard, Lawa na Richardson AND REPEAT 2X EVERY 3 HOURS 23:21:00 Patrese Meth odist BLOOD CULTURE, AEROBIC & ANAEROBIC 2019-08-14 Baldwin, Phuon gdung Richardson 23:10:00 Izabella Sabianist XR CHEST 1 VW PORTABLE 2019-08-14 Tello Byrd [place] 20:25:01 Sabianist HC COMPLETE BLD COUNT W/AUTO DIFF 2019-08-14 Tegan Purvis Richardson 20:15:00 Njoya Sabianist ARTERIAL BLOOD GAS 2019-08-14 Evans Lisseth Richardson 20:10:00 Sabianist TROPONIN 2019-08-14 Silvia Purvis Richardson 20:05:00 Njoya Sabianist BASIC METABOLIC PANEL 2019-08-14 Tello ByrdAndrew Richardson 19:54:00 Sabianist ESTIMATED GFR 2019-08-14 Silvia Purvis Richardson 19:54:00 Njoya Sabianist PHOSPHORUS LEVEL 2019-08-14 Luissierra tucsonSilvia Richardson 19:54:00 Njoya Sabianist MAGNESIUM LEVEL 2019-08-14 Luissierra tucsonSilvia Richardson 19:54:00 Njoya Sabianist LACTIC ACID LEVEL 2019-08-14 Luissierra tucsonSilvia Richardson 19:54:00 Njoya Sabianist ECG 12-LEAD 2019-08-14 Tello ByrdAndrew Richardson 19:51:43 Sabianist CV CAROTID ARTERY STENT W EMBOLIC 2019-08-14 CarsonAdyAndrew Richardson PROTECTION 16:43:10 Sabianist ACTIVATED CLOTTING TIME 2019-08-14 Shailesh Hutchinson Richardson 16:19:00 Sabianist HC COMPLETE BLD COUNT W/AUTO DIFF 2019-08-14 Shailesh Hutchinson Richardson 04:15:00 Sabianist BASIC METABOLIC PANEL 2019-08-14 Shailesh Hutchinson Richardson 04:15:00 Sabianist B NATRIURETIC PEPTIDE 2019-08-14 Shailesh Hutchinson Richardson 04:15:00 Sabianist MAGNESIUM LEVEL 2019-08-14 Shailesh Hutchinson Richardson 04:15:00 Sabianist PROTHROMBIN TIME WITH INR 2019-08-14 Shailesh Hutchinson on 04:15:00 Sabianist ESTIMATED GFR 2019-08-14 Shailesh Hutchinson Richardson 04:15:00 Sabianist TYPE AND SCREEN 2019-08-13 Shailesh Hutchinson Richardson 12:18:00 Sabianist PREPARE RBC 2019-08-13 Shailesh Hutchinson Richardson 12:18:00 Sabianist HC COMPLETE BLD COUNT W/AUTO DIFF 2019-08-13 Shailesh Hutchinson Richardson 04:00:00 Sabianist BASIC METABOLIC PANEL 2019-08-13 Shailesh Hutchinson Richardson 04:00:00 Sabianist B NATRIURETIC PEPTIDE 2019-08-13 Shailesh Hutchinson Richardson 04:00:00 Sabianist MAGNESIUM LEVEL 2019-08-13 Shailesh Hutchinson Richardson 04:00:00 Sabianist ESTIMATED GFR 2019-08-13 Bravo Hutchinsonhen KarineAndrew Richardson 04:00:00 Sabianist GRAM STAIN 2019-08-12 Sumanth Baldwin Richardson 14:00:00 Izabella Sabianist XR CHEST 1 VW PORTABLE 2019-08-12 JasperShaileshAndrew Richardson 08:20:00 Sabianist HC COMPLETE BLD COUNT W/AUTO DIFF 2019-08-12 HutchinsonShaileshAndrew Richardson 06:06:00 Sabianist BASIC METABOLIC PANEL 2019-08-12 Jasper Shailesh KarineAndrew Richardson 06:06:00 Sabianist B NATRIURETIC PEPTIDE 2019-08-12 Jasper Shailesh KarineAndrew Richardson 06:06:00 Sabianist MAGNESIUM LEVEL 2019-08-12 HutchinsonBravoShailesh KarineAndrew Richardson 06:06:00 Sabianist ESTIMATED GFR 2019-08-12 Jasper Shailesh KarineAndrew Richardson 06:06:00 Sabianist POC GLUCOSE 2019-08-11 Jasper Shailesh KarineAndrew Richardson 13:04:00 Sabianist ECG PRE/POST OP 2019-08-11 Alvarez Gusman Richardson 11:28:38 Sabianist CV PCI 2019-08-11 [facility] Richardson 11:06:01 Sabianist CV SELECTIVE CORONARY ANGIOGRAPHY 2019-08-11 [facility] 11:06:01 Sabianist ACTIVATED CLOTTING TIME 2019-08-11 Shailesh Hutchinson Richardson 10:29:00 Sabianist HC COMPLETE BLD COUNT W/AUTO DIFF 2019-08-11 Shailesh Hutchinson KarineAndrew Richardson 04:10:00 Sabianist B NATRIURETIC PEPTIDE 2019-08-11 Shailesh Hutchinson KarineAndrew Richardson 04:10:00 Sabianist PARTIAL THROMBOPLASTIN TIME (PTT) 2019-08-11 Shailesh Hutchinson Richardson 04:10:00 Sabianist BASIC METABOLIC PANEL 2019-08-11 Shailesh Hutchinson Richardson 04:00:00 Sabianist MAGNESIUM LEVEL 2019-08-11 Shailesh Hutchinson KarineAndrew Richardson 04:00:00 Sabianist ESTIMATED GFR 2019-08-11 Shailesh Hutchinson KarineAndrew Richardson 04:00:00 Sabianist XR CHEST 1 VW PORTABLE 2019-08-10 Kris Parrish Richardson 12:07:52 Sabianist HC COMPLETE BLD COUNT W/AUTO DIFF 2019-08-10 Shailesh Hutchinson Richardson 06:00:00 Sabianist B NATRIURETIC PEPTIDE 2019-08-10 Shailesh Hutchinson Richardson 06:00:00 Sabianist COMPREHENSIVE METABOLIC PANEL 2019-08-10 [facility] Kris CampbellAndrew [facility] 04:00:00 Sabianist ESTIMATED GFR 2019-08-10 [facility], Kris CampbellAndrew Joyce 04:00:00 Sabianist MAGNESIUM LEVEL 2019-08-10 [facility], Kris CampbellAndrew Richardson 04:00:00 Sabianist PARTIAL THROMBOPLASTIN TIME (PTT) 2019-08-10 [facility], Kris Campbell Andrew Richardson 04:00:00 Sabianist HC COMPLETE BLD COUNT W/AUTO DIFF 2019-08-10 [facility], Kris Campbell Andrew Richardson 04:00:00 Sabianist PARTIAL THROMBOPLASTIN TIME (PTT) 2019-08-09 Shailesh Hutchinson Richardson 14:10:00 Sabianist PARTIAL THROMBOPLASTIN TIME (PTT) 2019-08-09 Shailesh Hutchinson 08:00:00 Sabianist HC COMPLETE BLD COUNT W/AUTO DIFF 2019-08-09 Shailesh Hutchinson Joyce 04:00:00 Sabianist BASIC METABOLIC PANEL 2019-08-09 Shailesh Hutchinson 04:00:00 Sabianist B NATRIURETIC PEPTIDE 2019-08-09 Shailesh Hutchinson Joyce 04:00:00 Sabianist MAGNESIUM LEVEL 2019-08-09 Shailesh Hutchinson Richardson 04:00:00 Sabianist ESTIMATED GFR 2019-08-09 Shailesh Hutchinson 04:00:00 Sabianist ESOPHAGOGASTRODUODENOSCOPY (EGD) 2019-08-08 Baron Ervin Richardson 13:35:00 Sabianist VENIPUNC NEED PHYS SKILL,DX OR RX 2019-08-08 Sybil Young Richardson 10:12:22 Sabianist PARTIAL THROMBOPLASTIN TIME (PTT) 2019-08-08 Cady West Richardson 10:00:00 Sabianist BASIC METABOLIC PANEL 2019-08-08 Rod Fontanez Richardson 03:00:00 Bharatkumar Sabianist PARTIAL THROMBOPLASTIN TIME (PTT) 2019-08-08 Shailesh Hutchinson Richardson 03:00:00 Sabianist ESTIMATED GFR 2019-08-08 Estee, Rod Richardson 03:00:00 Bharatkumar Sabianist PARTIAL THROMBOPLASTIN TIME (PTT) 2019 Shailesh Hutchinson Richardson 17:07:00 Sabianist PARTIAL THROMBOPLASTIN TIME (PTT) 2019 Shailesh Hutchinson Richardson 14:30:[address] HEAD WO CONTRAST 2019 Kris Parrish 12:55:14 Sabianist ARTERIAL BLOOD GAS 2019 Rod Fontanez Richardson 11:40:00 Bharatkumar Sabianist BASIC METABOLIC PANEL 2019 Rod Fontanez Richardson 04:10:00 Bharatkumar Sabianist B NATRIURETIC PEPTIDE 2019 [facility] 04:10:00 Bharatkumar Sabianist HC COMPLETE BLD COUNT W/AUTO DIFF 2019 Shailesh Hutchinson Richardson 04:10:00 Sabianist MAGNESIUM LEVEL 2019 Shailesh Hutchinson Richardson 04:10:00 Sabianist PROTHROMBIN TIME WITH INR 2019 Shailesh Hutchinson [facility] on 04:10:00 Sabianist PARTIAL THROMBOPLASTIN TIME (PTT) 2019 hSailesh Hutchinson Richardson 04:10:00 Sabianist ESTIMATED GFR 2019 Shailesh Hutchinson Richardson 04:10:00 Sabianist PARTIAL THROMBOPLASTIN TIME (PTT) 2019-08-06 Shailesh Hutchinson Richardson 13:15:00 Sabianist PARTIAL THROMBOPLASTIN TIME (PTT) 2019-08-06 Kris Parrish 11:40:00 Sabianist BASIC METABOLIC PANEL 2019-08-06 [facility] Richardson 04:00:00 Bharatkumar Sabianist MAGNESIUM LEVEL 2019-08-06 [facility] 04:00:00 Bharatkumar Sabianist PHOSPHORUS LEVEL 2019-08-06 [facility] 04:00:00 Bharatkumar Sabianist ESTIMATED GFR 2019-08-06 Kris Parrish 04:00:00 Sabianist PARTIAL THROMBOPLASTIN TIME (PTT) 2019-08-06 Kris Parrish 03:55:00 Sabianist POC GLUCOSE 2019-08-05 Shailesh Hutchinson Richardson 11:46:00 Sabianist BASIC METABOLIC PANEL 2019-08-05 LuliRod mcleod Richardson 11:32:00 Bharatkumar Sabianist ESTIMATED GFR 2019-08-05 [facility] 11:32:00 Bharatkumar Sabianist PARTIAL THROMBOPLASTIN TIME (PTT) 2019-08-05 Kris Parrish G Andrew Richardson 08:50:00 Sabianist POC GLUCOSE 2019-08-05 JasperShaileshAndrew Richardson 07:46:00 Sabianist PARTIAL THROMBOPLASTIN TIME (PTT) 2019-08-05 [facility] Kris Campbell Andrew Richardson 01:50:00 Sabianist POC GLUCOSE 2019-08-04 Jasper Shailesh MiltonAndrew Richardson 20:37:00 Sabianist POC GLUCOSE 2019-08-04 Shailesh Hutchinson KarineAndrew Richardson 18:34:00 Sabianist PARTIAL THROMBOPLASTIN TIME (PTT) 2019-08-04 Shailesh Hutchinson KarineAndrew Richardson 17:50:00 Sabianist POC GLUCOSE 2019-08-04 Jasper Shailesh KarineAndrew Richardson 16:58:00 Sabianist PARTIAL THROMBOPLASTIN TIME (PTT) 2019-08-04 [facility] Kris Campbell Andrew Richardson 15:30:00 Sabianist POC GLUCOSE 2019-08-04 Jasper Shailesh KarineAndrew Richardson 14:02:00 Sabianist POC GLUCOSE 2019-08-04 Shailesh Hutchinson KarineAndrew Richardson 08:21:00 Sabianist HC COMPLETE BLD COUNT W/AUTO DIFF 2019-08-04 Cady West Richardson 06:45:00 Sabianist B NATRIURETIC PEPTIDE 2019-08-04 Rod Fontanez Richardson 06:45:00 Bharatkumar Sabianist PARTIAL THROMBOPLASTIN TIME (PTT) 2019-08-04 Cady West Richardson 06:45:00 Sabianist BASIC METABOLIC PANEL 2019-08-04 Mat West Richardson 04:00:00 Sabianist MAGNESIUM LEVEL 2019-08-04 Mat West Richardson 04:00:00 Sabianist PHOSPHORUS LEVEL 2019-08-04 Mat West Richardson 04:00:00 Sabianist ESTIMATED GFR 2019-08-04 Shailesh Hutchinson Richardson 04:00:00 Sabianist POC GLUCOSE 2019-08-03 Shailesh Hutchinson Richardson 23:25:00 Sabianist PARTIAL THROMBOPLASTIN TIME (PTT) 2019-08-03 Shailesh Hutchinson Richardson 22:30:00 Sabianist POC GLUCOSE 2019-08-03 Shailesh Hutchinson Richardson 17:35:00 Sabianist PARTIAL THROMBOPLASTIN TIME (PTT) 2019-08-03 Joelle Archibald Richardson 15:30:00 Sabianist POC GLUCOSE 2019-08-03 Shailesh Hutchinson Richardson 10:57:00 Sabianist PARTIAL THROMBOPLASTIN TIME (PTT) 2019-08-03 Joelle Archibald Joyce 08:46:00 Sabianist POC GLUCOSE 2019-08-03 Shailesh Hutchinson Richardson 07:07:00 Sabianist ARTERIAL BLOOD GAS 2019-08-03 Mat West Richardson 05:36:00 Sabianist XR CHEST 1 VW PORTABLE 2019-08-03 Mat West Richardson 05:31:12 Sabianist BASIC METABOLIC PANEL 2019-08-03 Mat West Richardson 04:00:00 Sabianist CBC WITH PLATELET AND DIFFERENTIAL 2019-08-03 RobertlatrobeMary mclaughlinn am Richardson 04:00:00 Sabianist MAGNESIUM LEVEL 2019-08-03 [facility] Richardson 04:00:00 Sabianist PHOSPHORUS LEVEL 2019-08-03 Shailesh Hutchinson Richardson 04:00:00 Sabianist ESTIMATED GFR 2019-08-03 Shailesh Hutchinson Richardson 04:00:00 Sabianist PARTIAL THROMBOPLASTIN TIME (PTT) 2019-08-03 Shailesh Hutchinson Richardson 04:00:00 Sabianist MANUAL DIFFERENTIAL 2019-08-03 Shailesh Hutchinson Richardson 04:00:00 Sabianist BASIC METABOLIC PANEL 2019-08-02 Voore, Prakruthi Richardson 22:36:00 Sabianist MAGNESIUM LEVEL 2019-08-02 Voore, Prakruthi Richardson 22:36:00 Sabianist PARTIAL THROMBOPLASTIN TIME (PTT) 2019-08-02 Joelle Archibald Richardson 22:36:00 Sabianist ESTIMATED GFR 2019-08-02 Jesus Manuel, Prakruthi Richardson 22:36:00 Sabianist POC GLUCOSE 2019-08-02 Shailesh Hutchinson Richardson 20:58:00 Sabianist POC GLUCOSE 2019-08-02 Shailesh Hutchinson Richardson 17:10:00 Sabianist PROTHROMBIN TIME WITH INR 2019-08-02 Barrera Archibald [facility] 14:20:00 Sabianist PARTIAL THROMBOPLASTIN TIME (PTT) 2019-08-02 Joelle Archibald 14:20:00 Sabianist POC GLUCOSE 2019-08-02 Shailesh Hutchinson Richardson 13:27:00 Sabianist US DUPLEX VENOUS LOWER EXTREMITY 2019-08-02 Kris Parrish BILATERAL 10:30:00 Sabianist POC GLUCOSE 2019-08-02 Shailesh Hutchinson Richardson 09:13:00 Sabianist XR CHEST 1 VW PORTABLE 2019-08-02 Oleksandr Ken Richardson 05:50:39 Sabianist POC GLUCOSE 2019-08-02 Jasper Shailesh KarineAndrew Richardson 05:11:00 Sabianist ARTERIAL BLOOD GAS 2019-08-02 Oleksandr Ken Richardson 04:03:00 Sabianist HC COMPLETE BLD COUNT W/AUTO DIFF 2019-08-02 ShahlaJesus navajuliana Richardson 03:41:00 Ricardo Sabianist COMPREHENSIVE METABOLIC PANEL 2019-08-02 ShahlaLopez nava Richardson 03:41:00 Ricardo Sabianist MAGNESIUM LEVEL 2019-08-02 HariscelinaLopez estes Richardson 03:41:00 Ricardo Sabianist B NATRIURETIC PEPTIDE 2019-08-02 Rod Fontanez Richardson 03:41:00 Bharatkumar Sabianist PHOSPHORUS LEVEL 2019-08-02 Oleksandr Ken Richardson 03:41:00 Sabianist ESTIMATED GFR 2019-08-02 Rod Fontanez Richardson 03:41:00 Bharatkumar Sabianist POC GLUCOSE 2019-08-02 Jasper Shailesh M. Richardson 00:41:00 Sabianist POC GLUCOSE 2019-08-01 Shailesh Hutchinson Richardson 20:36:00 Sabianist BASIC METABOLIC PANEL 2019-08-01 Shailesh Hutchinson Richardson 19:50:00 Sabianist MAGNESIUM LEVEL 2019-08-01 Jasper Shailesh M. Richardson 19:50:00 Sabianist ESTIMATED GFR 2019-08-01 Shailesh Hutchinson Richardson 19:50:00 Sabianist PHOSPHORUS LEVEL 2019-08-01 Shailesh Hutchinson Richardson 19:50:00 Sabianist POC GLUCOSE 2019-08-01 Shailesh Hutchinson Richardson 16:59:00 Sabianist POC GLUCOSE 2019-08-01 Shailesh Hutchinson Richardson 13:04:00 Sabianist POC GLUCOSE 2019-08-01 Shailesh Hutchinsno Richardson 09:04:00 Sabianist POC GLUCOSE 2019-08-01 Shailesh Hutchinson Richardson 04:35:00 Sabianist XR CHEST 1 VW PORTABLE 2019-08-01 Mat West Richardson 04:20:00 Sabianist ARTERIAL BLOOD GAS 2019-08-01 keyurwvMat Richardson 03:53:00 Sabianist HC COMPLETE BLD COUNT W/AUTO DIFF 2019-08-01 Jesus Eagle Richardson 03:43:00 Ricardo Garcia COMPREHENSIVE METABOLIC PANEL 2019-08-01 Lopez Eagle Richardson 03:43:00 Ricardo Garcia MAGNESIUM LEVEL 2019-08-01 Lopez Eagle Richardson 03:43:00 Ricardo Sabianist PHOSPHORUS LEVEL 2019-08-01 Shailesh Hutchinson Richardson 03:43:00 Sabianist ESTIMATED GFR 2019-08-01 Shailesh Hutchinson Richardson 03:43:00 Sabianist POC GLUCOSE 2019-08-01 Shailesh Hutchinson Richardson 00:54:00 Sabianist POC GLUCOSE 2019-07-31 Shailesh Hutchinson Richardson 20:46:00 Sabianist SPUTUM CULTURE 2019-07-31 Nicolasa [facility] 20:09:00 Izabella Sabianist GRAM STAIN 2019-07-31 [facility] Richardson 20:09:00 Izabella Sabianist POC GLUCOSE 2019-07-31 Shailesh Hutchinson Richardson 16:57:00 Sabianist US THYROID 2019-07-31 Lopez Eagle Richardson 14:19:00 Ricardo Sabianist POC GLUCOSE 2019-07-31 Shailesh Hutchinson Richardson 13:04:00 Sabianist POTASSIUM LEVEL 2019-07-31 Barrera Archibald Richardson 11:35:00 Sabianist POC GLUCOSE 2019-07-31 Shailesh Hutchinson Richardson 08:46:00 Sabianist POC GLUCOSE 2019-07-31 Shailesh Hutchinson Richardson 04:58:00 Sabianist XR CHEST 1 VW PORTABLE 2019-07-31 Mat West Richardson 04:05:00 Sabianist CBC WITH PLATELET AND DIFFERENTIAL 2019-07-31 Jade Eagle Richardson 04:00:00 Ricardo Garcia COMPREHENSIVE METABOLIC PANEL 2019-07-31 Lopez Eagle Richardson 04:00:00 Ricardo Garcia MAGNESIUM LEVEL 2019-07-31 Lopez Eagle Richardson 04:00:00 Ricardo Sabianist ARTERIAL BLOOD GAS 2019-07-31 Ricardo Pink Richardson 04:00:00 Sukumar Garcia ESTIMATED GFR 2019-07-31 Lopez Eagle Richardson 04:00:00 Ricardo Sabianist MANUAL DIFFERENTIAL 2019-07-31 Lopez Eagle Richardson 04:00:00 Ricardo Garcia POC GLUCOSE 2019-07-31 Shailesh Hutchinson Richardson 01:23:00 Sabianist POC GLUCOSE 2019-07-30 Shailesh Hutchinson Richardson 20:43:00 Sabianist VENOUS BLOOD GAS 2019-07-30 Apryl Ricardo Richardson 20:38:00 Sukumar Sabianist POC GLUCOSE 2019-07-30 Shailesh Hutchinson Richardson 18:09:00 Sabianist POC GLUCOSE 2019-07-30 Shailesh Hutchinson Richardson 17:04:00 Sabianist POC GLUCOSE 2019-07-30 Shailesh Hutchinson Richardson 13:14:00 Sabianist STREPTOCOCCUS PNEUMONIAE URINARY 2019-07-30 Tariq Eagle ietiffany Richardson ANTIGEN 11:31:00 Ricardo Garcia LEGIONELLA URINARY ANTIGEN 2019-07-30 Lopez Eagle [facility] 11:31:00 Ricardo Garcia BLOOD CULTURE, AEROBIC & ANAEROBIC 2019-07-30 Jade Eagle Richardson 10:40:00 Ricardo Garcia BLOOD CULTURE, AEROBIC & ANAEROBIC 2019-07-30 Jade Eagle Richardson 10:30:00 Ricardo Garcia [place] INSERT NON-TUNNEL CV CATH 2019-07-30 Lopez Eagle Joyce 10:11:55 Ricardo Garcia XR CHEST 1 VW PORTABLE 2019-07-30 Lopez Eagle n 10:11:09 Ricardo Garcia POC GLUCOSE 2019-07-30 Shailesh Hutchinson Richardson 09:03:00 Sabianist HC COMPLETE BLD COUNT W/AUTO DIFF 2019-07-30 Jesus Eagle Richardson 08:00:00 Ricardo Garcia POC GLUCOSE 2019-07-30 HutchinsonShaileshAndrew Richardson 06:20:00 Sabianist XR ABDOMEN 1 VW PORTABLE 2019-07-30 Sandy Mercado [place] 06:13:12 Patrese Sabianist XR CHEST 1 VW PORTABLE 2019-07-30 Sandy Mercado [place] 06:12:41 Patrese Sabianist ARTERIAL BLOOD GAS 2019-07-30 Sandy Mercado Richardson 06:00:00 Patrese Sabianist LACTIC ACID LEVEL 2019-07-30 Sandy Mercado Richardson 05:38:00 Patrese Sabianist PHOSPHORUS LEVEL 2019-07-30 Sandy Mercado Richardson 05:38:00 Patrese Sabianist ECG 12-LEAD 2019-07-30 Kris Parrish Richardson 05:28:43 Sabianist ECG 12-LEAD 2019-07-30 Sandy Mercado Richardson 05:01:58 Patrese Sabianist POC BLOOD GAS, ARTERIAL AND LYTES 2019-07-30 Shailesh Hutchinson Richardson 04:35:00 Sabianist CBC WITH PLATELET AND DIFFERENTIAL 2019-07-30 Shailesh Hutchinson Joyce 04:30:00 Sabianist BASIC METABOLIC PANEL 2019-07-30 Shailesh Hutchinson Richardson 04:30:00 Sabianist PHOSPHORUS LEVEL 2019-07-30 Shailesh Hutchinson Richardson 04:30:00 Sabianist MAGNESIUM LEVEL 2019-07-30 Shailesh Hutchinson Richardson 04:30:00 Sabianist ALBUMIN LEVEL 2019-07-30 Shailesh Hutchinson Richardson 04:30:00 Sabianist ESTIMATED GFR 2019-07-30 Shailesh Hutchinson Richardson 04:30:00 Sabianist POC GLUCOSE 2019-07-30 Shailesh Hutchinson Joyce 04:27:00 Sabianist POC GLUCOSE 2019-07-29 Shailesh Hutchinson Richardson 23:30:00 Sabianist POC GLUCOSE 2019-07-29 Shailesh Hutchinson Joyce 17:41:00 Sabianist RESPIRATORY PATHOGEN PANEL 2019-07-29 Shaliesh Hutchinson [facility] 14:58:00 Sabianist POC GLUCOSE 2019-07-29 Shailesh Hutchinson 12:22:00 Sabianist XR CHEST 1 VW PORTABLE 2019-07-29 GriseldaErin Richardson 12:04:00 Sabianist POC GLUCOSE 2019-07-29 Shailesh Hutchinson Richardson 08:18:00 Sabianist COMPREHENSIVE METABOLIC PANEL 2019-07-29 Rod Fontanez [facility] 05:00:00 Luis Alfredo Sabianist HC COMPLETE BLD COUNT W/AUTO DIFF 2019-07-29 Rod Fontanez 05:00:00 Luis Alfredo Sabianist B NATRIURETIC PEPTIDE 2019-07-29 Shailesh Hutchinson Joyce 05:00:00 Sabianist ESTIMATED GFR 2019-07-29 Shailesh uHtchinson 05:00:00 Sabianist POC GLUCOSE 2019-07-28 Shailesh Hutchinson Joyce 22:14:00 Sabianist POC GLUCOSE 2019-07-28 Shailesh Hutchinson Richardson 17:44:00 Sabianist POC GLUCOSE 2019-07-28 Shailesh Hutchinson Richardson 12:46:00 Sabianist POC GLUCOSE 2019-07-28 Shailesh Hutchinson Richardson 09:41:00 Sabianist HC COMPLETE BLD COUNT W/AUTO DIFF 2019-07-28 [facility] 05:00:00 Bharatkumar Sabianist B NATRIURETIC PEPTIDE 2019-07-28 Shailesh Hutchinson Richardson 05:00:00 Sabianist SMEAR REVIEW 2019-07-28 [facility] 05:00:00 Bharatkumar Sabianist COMPREHENSIVE METABOLIC PANEL 2019-07-28 [facility] 04:00:00 Bharatkumar Sabianist MAGNESIUM LEVEL 2019-07-28 [facility] 04:00:00 Bharatkumar Sabianist PHOSPHORUS LEVEL 2019-07-28 [facility] 04:00:00 Bharatkumar Sabianist ESTIMATED GFR 2019-07-28 [facility], [facility] 04:00:00 Bharatkumar Sabianist POC GLUCOSE 2019-07-27 Shailesh Hutchinson Richardson 20:54:00 Sabianist POC GLUCOSE 2019-07-27 Shailesh Hutchinson Richardson 17:33:00 Sabianist XR CHEST 1 VW PORTABLE 2019-07-27 Nicolasa [facility]idinesh [facility] 13:16:22 Izabella Sabianist POC GLUCOSE 2019-07-27 Shailesh Hutchinson Richardson 13:15:00 Sabianist RESPIRATORY PATHOGEN PANEL 2019-07-27 Jose Baldwinnganh [facility] 11:48:00 Izabella Sabianist POC GLUCOSE 2019-07-26 Shailesh Hutchinson Richardson 21:46:00 Sabianist SPIROMETRY, DIFFUSION 2019-07-26 Shailesh Hutchinson Joyce 13:16:29 Sabianist POC GLUCOSE 2019-07-26 Shailesh Hutchinson Richardson 12:30:00 Sabianist POC GLUCOSE 2019-07-26 Shailesh Hutchinson Richardson 08:33:00 Sabianist HC COMPLETE BLD COUNT W/AUTO DIFF 2019-07-26 Shailesh Hutchinson Joyce 05:20:00 Sabianist BASIC METABOLIC PANEL 2019-07-26 JasperShaileshAndrew Richardson 04:00:00 Sabianist ESTIMATED GFR 2019-07-26 JasperShaileshAndrew Richardson 04:00:00 Sabianist POC GLUCOSE 2019-07-25 Jasper Shailesh KarineAndrew Richardson 17:03:00 Sabianist POC GLUCOSE 2019-07-25 JasperShaileshAndrew Richardson 12:44:00 Sabianist NM GI BLEEDING STUDY 2019-07-25 Baron Ervin Richardson 11:34:26 Sabianist POC GLUCOSE 2019-07-25 JasperShaileshAndrew Richardson 08:58:00 Sabianist HC COMPLETE BLD COUNT W/AUTO DIFF 2019-07-25 JasperShaileshAndrew Richardson 04:00:00 Sabianist BASIC METABOLIC PANEL 2019-07-25 Jasper Shailesh MiltonAndrew Richardson 04:00:00 Sabianist MAGNESIUM LEVEL 2019-07-25 JasperShaileshAndrew Richardson 04:00:00 Sabianist B NATRIURETIC PEPTIDE 2019-07-25 JasperShaileshAndrew Richardson 04:00:00 Sabianist ESTIMATED GFR 2019-07-25 Jasper Shailesh KarineAndrew Richardson 04:00:00 Sabianist POC GLUCOSE 2019-07-24 Jasper Shailesh MiltonAndrew Richardson 21:02:00 Sabianist POC GLUCOSE 2019-07-24 Jasper Shailesh MiltonAndrew Richardson 16:01:00 Sabianist POC GLUCOSE 2019-07-24 Jasper Shailesh MiltonAndrew Richardson 12:37:00 Sabianist POC GLUCOSE 2019-07-24 JasperShaileshAndrew Richardson 09:22:00 Sabianist HC COMPLETE BLD COUNT W/AUTO DIFF 2019-07-24 Jasper Shailesh KarineAndrew Richardson 05:30:00 Sabianist BASIC METABOLIC PANEL 2019-07-24 Jasper Shailesh KarineAndrew Richardson 05:30:00 Sabianist MAGNESIUM LEVEL 2019-07-24 JasperShaileshAndrew Richardson 05:30:00 Sabianist B NATRIURETIC PEPTIDE 2019-07-24 Jasper Shailesh MiltonAndrew Richardson 05:30:00 Sabianist ESTIMATED GFR 2019-07-24 Shailesh Hutchinson KarineAndrew Richardson 05:30:00 Sabianist POC GLUCOSE 2019-07-23 Jasper Shailesh KarineAndrew Richardson 23:51:00 Sabianist POC GLUCOSE 2019-07-23 Shailesh Hutchinson Richardson 19:46:00 Sabianist POC GLUCOSE 2019-07-23 Jsaper Shailesh KarineAndrew Richardson 14:41:00 Sabianist POC GLUCOSE 2019-07-23 Shailesh Hutchinson Richardson 10:08:00 Sabianist ECG 12-LEAD 2019-07-23 [facility] 09:40[facility]19 Sabianist MAGNESIUM LEVEL 2019-07-23 [facility] 05:[facility]:00 Sabianist HC COMPLETE BLD COUNT W/AUTO DIFF 2019-07-23 Shailesh Hutchinson Richardson 05:00:00 Sabianist BASIC METABOLIC PANEL 2019-07-23 Shailesh Hutchinson Richardson 05:00:00 Sabianist B NATRIURETIC PEPTIDE 2019-07-23 Shailesh Hutchinson Richardson 05:00:00 Sabianist ESTIMATED GFR 2019-07-23 Shailesh Hutchinson Richardson 05:00:00 Sabianist POC GLUCOSE 2019-07-22 Shailesh Hutchinson Richardson 20:27:00 Sabianist POC GLUCOSE 2019-07-22 Shailesh Hutchinson Richardson 17:14:00 Sabianist POC GLUCOSE 2019-07-22 Shailesh Hutchinson Richardson 12:59:00 Sabianist POC GLUCOSE 2019-07-22 Shailesh Hutchinson Richardson 08:38:00 Sabianist B NATRIURETIC PEPTIDE 2019-07-22 Estee Rod Richardson 04:25:00 Bharatkumar Sabianist COMPREHENSIVE METABOLIC PANEL 2019-07-22 [facility] 04:25:00 Sabianist ESTIMATED GFR 2019-07-22 [facility] 04:25:00 Sabianist POC GLUCOSE 2019-07-21 Shailesh Hutchinson Richardson 22:52:00 Sabianist POC GLUCOSE 2019-07-21 Shailesh Hutchinson Richardson 19:21:00 Sabianist POC GLUCOSE 2019-07-21 Shailesh Hutchinson Richardson 13:15:00 Sabianist XR CHEST 1 VW PORTABLE 2019-07-21 Baldwin, Josenganh [place] 10:01:23 Izabella Sabianist POC GLUCOSE 2019-07-21 Shailesh Hutchinson Richardson 08:39:00 Sabianist B NATRIURETIC PEPTIDE 2019-07-21 Estee, Rod Richardson 06:05:00 Bharatkumar Sabianist BASIC METABOLIC PANEL 2019-07-21 Shailesh Hutchinson Richardson 04:00:00 Sabianist MAGNESIUM LEVEL 2019-07-21 Shailesh Hutchinson Richardson 04:00:00 Sabianist ESTIMATED GFR 2019-07-21 Shailesh Hutchinson Richardson 04:00:00 Sabianist ECG 12-LEAD 2019-07-21 Kris Parrish Richardson 01:08:46 Sabianist POC GLUCOSE 2019-07-20 Shailesh Hutchinson Richardson 21:35:00 Sabianist POC GLUCOSE 2019-07-20 Shailesh Hutchinson Richardson 17:23:00 Sabianist POC GLUCOSE 2019-07-20 Shailesh Hutchinson Richardson 13:55:00 Sabianist ESOPHAGOGASTRODUODENOSCOPY (EGD) 2019-07-20 Baron Ervin Richardson 12:53:00 Sabianist HC COMPLETE BLD COUNT W/AUTO DIFF 2019-07-20 Shailesh Hutchinson Joyce 10:50:00 Sabianist POC GLUCOSE 2019-07-20 Shailesh Hutchinson Richardson 08:45:00 Sabianist SURGICAL PATHOLOGY REQUEST 2019-07-20 Shailesh Hutchinson [facility] ton 08:41:00 Sabianist CBC WITH PLATELET AND DIFFERENTIAL 2019-07-20 Shailesh Hutchinson Joyce 06:00:00 Sabianist B NATRIURETIC PEPTIDE 2019-07-20 Shailesh Hutchinson Richardson 06:00:00 Sabianist BASIC METABOLIC PANEL 2019-07-20 Shailesh Hutchinson Richardson 04:00:00 Sabianist MAGNESIUM LEVEL 2019-07-20 Shailesh Hutchinson Richardson 04:00:00 Sabianist ESTIMATED GFR 2019-07-20 Shailesh Hutchinson Richardson 04:00:00 Sabianist POC GLUCOSE 2019-07-19 Shailesh Hutchinson Richardson 23:25:00 Sabianist POC GLUCOSE 2019-07-19 Shailesh Hutchinson Richardson 17:56:00 Sabianist POC GLUCOSE 2019-07-19 Shailesh Hutchinson Richardson 14:37:00 Sabianist POC GLUCOSE 2019-07-19 Shailesh Hutchinson Richardson 09:40:00 Sabianist HC COMPLETE BLD COUNT W/AUTO DIFF 2019-07-19 Shailesh Hutchinson Richardson 04:30:00 Sabianist B NATRIURETIC PEPTIDE 2019-07-19 Shailesh Hutchinson Richardson 04:30:00 Sabianist BASIC METABOLIC PANEL 2019-07-19 Shailesh Hutchinson Richardson 04:30:00 Sabianist MAGNESIUM LEVEL 2019-07-19 Shailesh Hutchinson Richardson 04:30:00 Sabianist ESTIMATED GFR 2019-07-19 Shailesh Hutchinson Richardson 04:30:00 Sabianist OCCULT BLOOD, STOOL 2019-07-19 Shailesh Hutchinson KarineAndrew Richardson 04:00:00 Sabianist POC GLUCOSE 2019-07-18 Shailesh Hutchinson Richardson 17:11:00 Sabianist POC GLUCOSE 2019-07-18 Jasper Shailesh KarineAndrew Richardson 12:29:00 Sabianist CV LEFT HEART CATH LV GRAM WITH 2019-07-18 [facility], Kris Andrew Richardson CORS 12:01:16 Sabianist CV SELECTIVE CORONARY ANGIOGRAPHY 2019-07-18 [facility] 12:01:16 Sabianist CV ANGIOGRAM CAROTID BILATERAL 2019-07-18 [facility], Kris Andrew [facility] 12:01:16 Sabianist POC GLUCOSE 2019-07-18 Shailesh Hutchinson KarineAndrew Richardson 11:01:00 Sabianist POC GLUCOSE 2019-07-18 Jasper Shailesh KarineAndrew Richardson 08:45:00 Sabianist COMPREHENSIVE METABOLIC PANEL 2019-07-18 Rod Fontanez [place] 04:00:00 Bharatkkinza Sabianist HC COMPLETE BLD COUNT W/AUTO DIFF 2019-07-18 Shailesh Hutchinson Richardson 04:00:00 Sabianist B NATRIURETIC PEPTIDE 2019-07-18 Shailesh Hutchinson KarineAndrew Richardson 04:00:00 Sabianist ESTIMATED GFR 2019-07-18 Shailesh Hutchinson Richardson 04:00:00 Sabianist POC GLUCOSE 2019-07-17 Shailesh Hutchinson KarineAndrew Richardson 23:36:00 Sabianist POC GLUCOSE 2019-07-17 Shailesh Hutchinson KarineAndrew Richardson 17:17:00 Sabianist RHYTHM STRIP - SCAN 2019-07-17 Provider, Default [facility] es - 13:24:42 [facility] POC GLUCOSE 2019-07-17 Shailesh Hutchinson Richardson 13:05:00 Sabianist POC GLUCOSE 2019-07-17 Shailesh Hutchinson Richardson 08:24:00 Sabianist MAGNESIUM LEVEL 2019-07-17 Shailesh Hutchinson Richardson 03:30:00 Sabianist B NATRIURETIC PEPTIDE 2019-07-17 Shailesh Hutchinson Richardson 03:30:00 Sabianist COMPREHENSIVE METABOLIC PANEL 2019-07-17 Estee Rod [place] 03:30:00 Bharatkkinza Sabianist ESTIMATED GFR 2019-07-17 Rod Fontanez 03:30:00 Bharatkumar Sabianist POC GLUCOSE 2019-07-16 Shailesh Hutchinson Richardson 17:29:00 Sabianist POC GLUCOSE 2019-07-16 Shailesh Hutchinson Richardson 12:55:00 Sabianist XR CHEST 1 VW PORTABLE 2019-07-16 [facility] 08:55[facility]00 Bharatkumar Sabianist POC GLUCOSE 2019-07-16 Jasper Shailesh MiltonAndrew Richardson 08:37:00 Sabianist HC COMPLETE BLD COUNT W/AUTO DIFF 2019-07-16 [facility] 05:40:00 Bharatkumar Sabianist MAGNESIUM LEVEL 2019-07-16 Shailesh Hutchinson Richardson 05:40:00 Sabianist B NATRIURETIC PEPTIDE 2019-07-16 Shailesh Hutchinson Richardson 05:40:00 Sabianist COMPREHENSIVE METABOLIC PANEL 2019-07-16 [facility] 05:40:00 Bharatkumar Sabianist DIGOXIN LEVEL 2019-07-16 [facility] AdrianAndrew Richardson 05:40:00 Sabianist PROTHROMBIN TIME WITH INR 2019-07-16 [facility] 05:40:00 Sabianist PARTIAL THROMBOPLASTIN TIME (PTT) 2019-07-16 [facility] 05:40:00 Sabianist ESTIMATED GFR 2019-07-16 [facility] 05:40:00 Sabianist POC GLUCOSE 2019-07-15 Shailesh Hutchinson Richardson 23:29:00 Sabianist OCCULT BLOOD, STOOL 2019-07-15 Shailesh Hutchinson Richardson 18:40:00 Sabianist POC GLUCOSE 2019-07-15 Shailesh Hutchinson Richardson 17:30:00 Sabianist POC GLUCOSE 2019-07-15 Shailesh Hutchinson Richardson 12:49:00 Sabianist POC GLUCOSE 2019-07-15 Shailesh Hutchinson Richardson 08:47:00 Sabianist BASIC METABOLIC PANEL 2019-07-15 [facility] 06:00:00 Bharatkumar Sabianist HC COMPLETE BLD COUNT W/AUTO DIFF 2019-07-15 [facility] 06:00:00 Bharatkumar Sabianist MAGNESIUM LEVEL 2019-07-15 Shailesh Hutchinson Richardson 06:00:00 Sabianist B NATRIURETIC PEPTIDE 2019-07-15 Shailesh Hutchinson Richardson 06:00:00 Sabianist ESTIMATED GFR 2019-07-15 JasperBravoShailesh KarineAndrew Richardson 06:00:00 Sabianist POC GLUCOSE 2019-07-14 JasperShaileshAndrew Richardson 22:36:00 Sabianist POC GLUCOSE 2019-07-14 JasperShailesh Richardson 18:00:00 Sabianist POC GLUCOSE 2019-07-14 HutchinsonShailesh Richardson 12:23:00 Sabianist VENOUS BLOOD GAS 2019-07-14 [facility] 05:30:00 Bharatkumar Sabianist BASIC METABOLIC PANEL 2019-07-14 [facility], [facility] 04:40:00 Bharatkumar Sabianist HC COMPLETE BLD COUNT W/AUTO DIFF 2019-07-14 [facility], [facility] 04:40:00 Bharatkumar Sabianist MAGNESIUM LEVEL 2019-07-14 [facility], [facility] 04:40:00 Bharatkumar Sabianist PHOSPHORUS LEVEL 2019-07-14 [facility], [facility] 04:40:00 Bharatkumar Sabianist ESTIMATED GFR 2019-07-14 [facility] 04:40:00 Bharatkumar Sabianist POC GLUCOSE 2019-07-13 HutchinsonShaileshAndrew Richardson 19:33:00 Sabianist POC GLUCOSE 2019-07-13 HutchinsonShaileshAndrew Richardson 17:22:00 Sabianist SPUTUM CULTURE 2019-07-13 Jose Baldwinanh Richardson 15:50:00 Izabella Garcia GRAM STAIN 2019-07-13 [facility] 15:50[facility]00 Izabella Garcia SPIROMETRY PRE AND POST WITH 2019-07-13 Jasper Shailesh M. laila BRONCHILATOR, DIFFUSION, LUNG 14:51:49 Me thodist VOLUMES POC GLUCOSE 2019-07-13 JasperShaileshAndrew Richardson 12:05:00 Sabianist RESPIRATORY PATHOGEN PANEL 2019-07-13 [facility] Leoncio ulloa 11:55:00 Izabella Garcia ECG 12-LEAD 2019-07-13 JasperShaileshAndrew Richardson 11:43:47 Sabianist TTE COMPLETE, WO CONTRAST, W 2019-07-13 Kris Parrish DOPPLER ([id number]) 11:20:[address] CHEST WO CONTRAST 2019-07-13 [facility] Richardson 11:05:00 Izabella Sabianist US CAROTID DUPLEX BILATERAL 2019-07-13 ShivaniKris [place] 09:15:00 Sabianist ARTERIAL BLOOD GAS 2019-07-13 HutchinsonShailesh Richardson 06:10:00 Sabianist HC COMPLETE BLD COUNT W/AUTO DIFF 2019-07-13 HutchinsonShailesh Richardson 02:30:00 Sabianist BASIC METABOLIC PANEL 2019-07-13 [facility] 02:30:00 Sabianist B NATRIURETIC PEPTIDE 2019-07-13 HutchinsonShailesh Richardson 02:30:00 Sabianist MAGNESIUM LEVEL 2019-07-13 [facility] 02:30:00 Sabianist HEMOGLOBIN A1C 2019-07-13 [facility] 02:30:00 Sabianist THYROID STIMULATING HORMONE 2019-07-13 [facility] Brien ston 02:30:00 Sabianist T4, FREE 2019-07-13 [facility] Richardson 02:30:00 Sabianist LIPID PANEL 2019-07-13 [facility] CampbellAndrew Richardson 02:30:00 Sabianist ESTIMATED GFR 2019-07-13 HutchinsonShailesh Richardson 02:30:00 Sabianist URINE CULTURE 2019-07-13 Rod Fontanez Richardson 00:08:00 Bharatkumar Sabianist GRAM STAIN 2019-07-13 Rod Fontanez Richardson 00:08:00 Bharatkumar Sabianist SODIUM LEVEL, URINE, RANDOM 2019-07-12 [facility] Rod [place] 23:15:00 Bharatkumar Sabianist PROTEIN, URINE, RANDOM 2019-07-12 [facility] Center[facility] mcleod Richardson 23:15:00 Bharatkumar Sabianist MICROALBUMIN, URINE, RANDOM 2019-07-12 Sutaria, Rod [place] 23:15:00 Bharatkumar Sabianist CREATININE LEVEL, URINE, RANDOM 2019-07-12 [facility], Rod Richardson 23:15:00 Bharatkumar Sabianist CHLORIDE LEVEL, URINE, RANDOM 2019-07-12 [facility] 23:15:00 Bharatkumar Sabianist URINALYSIS SCREEN AND MICROSCOPY, 2019-07-12 [facility] Richardson WITH REFLEX TO CULTURE 23:15:00 Bharatkumar Sabianist ECG 12-LEAD 2019-07-12 Amarilys Vicenteolf Richardson 22:33:22 Sabianist POC GLUCOSE 2019-07-12 Shailesh HutchinsonAndrew Richardson 21:09:00 Sabianist XR CHEST 1 VW PORTABLE 2019-07-12 HutchinsonShaileshAndrew Richardson 20:06:59 Sabianist BASIC METABOLIC PANEL 2019-07-12 HutchinsonShaileshAndrew Richardson 17:02:00 Sabianist PROTHROMBIN TIME WITH INR 2019-07-12 Shailesh HutchinsonAndrew [facility] 17:02:00 Sabianist PARTIAL THROMBOPLASTIN TIME (PTT) 2019-07-12 HutchinsonShaileshAndrew Richardson 17:02:00 Sabianist ESTIMATED GFR 2019-07-12 HutchinsonShaileshAndrew Richardson 17:02:00 Sabianist REPORT OF PROCEDURE - ENDOSCOPY 2019-07-11 Provider, Jefe sloan [facility] - SCAN 09:01:15 [facility] RHYTHM STRIP - SCAN 2019-07-11 Provider, Guanaco [facility] - 09:01:03 [facility] POCT-GLUCOSE METER 2019-07-05 Jimbo Guerrag-Anisa [facility] - 06:51:00 [facility] XR CHEST 1 VIEW PORTABLE/BEDSIDE 2019-07-05 Jimbo Guerrag-Anisa [facility] - 06:11:00 [facility] POCT-GLUCOSE METER 2019-07-04 Mari Fang-Anisa [facility] - 21:19:00 [facility] POCT-GLUCOSE METER 2019-07-04 Mari Fang-Anisa [facility] - 16:26:00 [facility] PULMONARY FUNCTION - SCAN 2019-07-04 Provider, Default [facility] - 16:00:03 [facility] BLOOD GAS, VENOUS 2019-07-[address] [facility] - 11:50:00 [facility] POCT-GLUCOSE METER 2019-07-04 Jimbo Guerrag-Anisa [facility] - 11:50:00 [facility] SPIROMETRY 2019-07-04 Maniar, Nirav [facility] - 09:43:45 [facility] MIP/MEP 2019-07-04 Maniar, Nirav [facility] - 09:43:45 [facility] LUNG VOLUMES 2019-07-04 Maniar, Nirav [facility] - 09:43:45 [facility] DLCO (SINGLE BREATH DIFFUSION) 2019-07-04 Nirav Barragan Mona [facility] - 09:43:45 [facility] POCT-GLUCOSE METER 2019-07-[address] [facility] - 07:31:00 [facility] Center PROTHROMBIN TIME/INR 2019-07-[address] [facility] - 03:53:00 [facility] MAGNESIUM 2019-07-[address] [facility] - 03:53:00 [facility] BASIC METABOLIC PANEL (7) 2019-07-[address] [facility] - 03:53:00 Medical Center US RENAL WITH DOPPLER 2019-07-[address] [facility] - 02:38:00 [facility] Center POCT-GLUCOSE METER 2019-07-03 MariKacie-Anisa [facility] - 20:41:00 Medical Center POCT-GLUCOSE METER 2019-07-03 MariJimbog-Anisa [facility] - 17:31:00 [facility] Center POCT-GLUCOSE METER 2019-07-[address] [facility] - 12:22:00 [facility] FL ESOPHAGUS PHARNYX AND/OR 2019-07-[address] [facility] - CERVICAL 11:25:00 [facility] FL SNIFF TEST 2019-07-[address] [facility] - 11:23:00 Medical Center XR ESOPH SWALLOW FUNCTION W/CINE 2019-07-[address] [facility] - VIDEO 10:45:00 [facility] POCT-GLUCOSE METER 2019-07-[address] [facility] - 08:13:00 [facility] Center PROTHROMBIN TIME/INR 2019-07-[address] [facility] - 03:47:00 [facility] Center MAGNESIUM 2019-07-[address] [facility] - 03:47:00 [facility] BASIC METABOLIC PANEL (7) 2019-07-[address] [facility] - 03:47:00 [facility] CBC (HEMOGRAM ONLY) 2019-07-[address] [facility] - 03:47:00 [facility] PROTEIN ELECTROPHORESIS, SERUM 2019-07-[address] [facility] - 03:47:00 [facility] POCT-GLUCOSE METER 2019-07-[address] [facility] - 21:18:00 [facility] Center POCT-GLUCOSE METER 2019-07-[address] [facility] - 18:06:00 [facility] Center POCT-GLUCOSE METER 2019-07-[address] Is[address]Melissa tucker D [facility] - 12:10:00 [facility] POCT-GLUCOSE METER 2019-07-[address] [facility] - 07:27:00 [facility] Center PROTHROMBIN TIME/INR 2019-07-[address] [facility] - 04:56:00 [facility] Center MAGNESIUM 2019-07-[address] [facility] - 04:56:00 Medical Center BASIC METABOLIC PANEL (7) 2019-07-[address] [facility] - 04:56:00 [facility] Center CBC (HEMOGRAM ONLY) 2019-07-[address] [facility] - 04:56:00 Medical Center POCT-GLUCOSE METER 2019-07-[address] [facility] - 21:08:00 [facility] Center POCT-GLUCOSE METER 2019-07-01 Melissa Lunsford D [facility] - 17:25:00 [facility] Center POCT-GLUCOSE METER 2019-07-01 Melissa Lunsford D [facility] - 11:33:00 [facility] Center POCT-GLUCOSE METER 2019-07-[address] [facility] - 08:01:00 Medical Center HEPATIC FUNCTION PANEL 2019-07-01 Delesekou-Margaret [facility] - 04:21:00 Deepak Lara [facility] PROTHROMBIN TIME/INR 2019-07-[address] [facility] - 04:21:00 Medical Center MAGNESIUM 2019-07-[address] [facility] - 04:21:00 Medical Center CBC (HEMOGRAM ONLY) 2019-07-01 Melissa Lunsford D [facility] - 04:21:00 [facility] Center BASIC METABOLIC PANEL (7) 2019-07-01 Is[address]Melissa tucker D [facility] - 04:21:00 [facility] CBC W/PLT COUNT & AUTO 2019-07-01 Franciscoija-Margaret, [facility] - DIFFERENTIAL 04:21:00 Deepak Lara [facility] POCT-GLUCOSE METER 2019-06-[address] [facility] - 20:59:00 Medical Center POCT-GLUCOSE METER 2019-06-30 Emmettjosephian, Melanie [facility] - 16:31:00 Medical Center POCT-GLUCOSE METER 2019-06-[address] [facility] - 11:37:00 Medical Center POCT-GLUCOSE METER 2019-06-[address] [facility] - 05:56:00 [facility] BLOOD GAS, ARTERIAL 2019-06-30 Franciscoija-Margaret [facility] - 02:38:00 [facility] CBC W/PLT COUNT & AUTO 2019-06-30 Franciscoija-Margaret, [facility] - DIFFERENTIAL 02:38:00 [facility] BASIC METABOLIC PANEL (7) 2019-06-30 Ester-Margaret [facility] - 02:37:00 [facility] HEPATIC FUNCTION PANEL 2019-06-30 Franciscoija-Margaret, [facility] - 02:37:00 [facility] PROTHROMBIN TIME/INR 2019-06-[address] [facility] - 02:37:00 [facility] MAGNESIUM 2019-06-[address] [facility] - 02:37:00 [facility] POCT-GLUCOSE METER 2019-06-[address] [facility] - 00:53:00 [facility] ECHOCARDIOGRAM REPORT - SCAN 2019-06-29 Provider, Default [facility] - 21:20:36 Scanning [facility] TROPONIN I 2019-06-[address] [facility] - 20:34:00 [facility] BLOOD GAS, ARTERIAL 2019-06-[address] [facility] - 18:43:00 Medical Center POCT-GLUCOSE METER 2019-06-[address] [facility] - 18:20:00 Medical Center 2D ECHO W/ DOPPLER (CW/PW/COLOR) 2019-06-[address] [facility] - 14:59:56 [facility] TROPONIN I 2019-06-[address] [facility] - 14:27:00 [facility] SODIUM, RANDOM URINE 2019-06-[address] [facility] - 14:27:00 [facility] OSMOLALITY, URINE 2019-06-[address] [facility] - 14:27:00 [facility] POTASSIUM, RANDOM URINE 2019-06-[address] - 14:27:00 [facility] PROTEIN, RANDOM URINE 2019-06-29 [facility] 14:27:00 [facility] IRON, TIBC, % SAT. (WITHOUT 2019-06-[address] [facility] - FERRITIN) 14:27:00 [facility] FERRITIN 2019-06-[address] [facility] - 14:27:00 [facility] VITAMIN B12 AND FOLATE 2019-06-29 Gab[facility]elle Miguel [facility] - 14:27:00 [facility] CBC W/PLT COUNT & AUTO 2019-06-29 Gabrielle Miguel [facility] - DIFFERENTIAL 14:27:[address] [facility] [address] BRAIN WITHOUT IV CONTRAST 2019-06-[address] [facility] - 13:31:[address] [facility] [address] CHEST WITHOUT IV CONTRAST 2019-06-[address] [facility] - 13:31:00 [facility] POCT-GLUCOSE METER 2019-06-[address] [facility] - 12:50:00 [facility] AMMONIA 2019-06-29 Rali, Cy [facility] - 10:45:00 [facility] TSH/FREE T4 IF INDICATED 2019-06-29 Rali, Cy [facility] - 10:45:00 [facility] LACTIC ACID, VENOUS 2019-06-29 Ralelvis, Cy [facility] - 10:45:00 [facility] PROCALCITONIN 2019-06-29 Ral, Cy [facility] - 10:45:00 [facility] DRUG SCREEN, URINE, COMPREHENSIVE 2019-06-29 Ralelvis, Cy [facility] - 10:45:00 [facility] RAPID INFLUENZA A&B SCREEN 2019-06-29 [facility]elle [facility] - 09:02:00 [facility] RESPIRATORY PANEL SLHS 2019-06-[address] [facility] - 09:02:00 [facility] MRSA SCREEN 2019-06-[address] [facility] - 09:01:00 [facility] URINALYSIS W/ REFLEX URINE CULTURE 2019-06-29 Franciscogutierrezmeg-Kyle o, [facility] - 08:58:00 [facility] BLOOD CULTURE 2019-06-29 Franciscogutierreza-Margaret, [facility] - 08:55:00 [facility] B-TYPE NATRIURETIC FACTOR (BNP) 2019-06-[address] [facility] - 08:54:00 [facility] SPUTUM CULTURE + GRAM STAIN 2019-06-29 Franciscogutierrezmeg-Margaret, [facility] - 08:43:00 [facility] BLOOD CULTURE 2019-06-29 Jvmeg-Margaret, [facility] - 08:43:00 [facility] BASIC METABOLIC PANEL (7) 2019-06-29 Jvmeg-Margaret, [facility] - 08:43:00 [facility] HEPATIC FUNCTION PANEL 2019-06-29 Jvmeg-Margaret, [facility] - 08:43:00 [facility] MAGNESIUM 2019-06-[address] [facility] - 08:43:00 [facility] TROPONIN I 2019-06-[address] [facility] - 08:42:00 [facility] BLOOD GAS, ARTERIAL 2019-06-29 Jvmeg-Margaret, [facility] - 06:48:00 [facility] PT/APTT 2019-06-29 Ester-Margaret, [facility] - 06:48:00 [facility] CBC W/PLT COUNT & AUTO 2019-06-29 Jva-Margaret, [facility] - DIFFERENTIAL 06:48:00 [facility] XR CHEST 1 VIEW PORTABLE/BEDSIDE 2019-06-29 [place], [facility] - 05:52:00 [facility] HC COMPLETE BLD COUNT W/AUTO DIFF 2019-05-19 Dayna Chamorro 17:30:00 Sabianist COMPREHENSIVE METABOLIC PANEL 2019-05-19 Emilia Chamorro Leoncio uston 17:30:00 Sabianist LACTIC ACID LEVEL, SEPSIS - NOW 2019-05-19 Emilia Chamorro AND REPEAT 2X EVERY 3 HOURS 17:30:00 Meth odist TROPONIN 2019-05-19 Emilia Chamorro 17:30:00 Sabianist B NATRIURETIC PEPTIDE 2019-05-19 Emilia Chamorro 17:30:00 Sabianist TYPE AND SCREEN 2019-05-19 Emilia Chamorro 17:30:00 Sabianist PROTHROMBIN TIME WITH INR 2019-05-19 Emilia Chamorroto n 17:30:00 Sabianist PARTIAL THROMBOPLASTIN TIME (PTT) 2019-05-19 Dayna Chamorro 17:30:00 Sabianist ESTIMATED GFR 2019-05-19 Emilia Chamorro 17:30:00 Sabianist XR CHEST 1 VW PORTABLE 2019-05-19 Emilia Chamorro 17:15:42 Sabianist BLOOD CULTURE, AEROBIC & ANAEROBIC 2019-05-19 Al Chamorro 16:10:00 Sabianist URINE CULTURE 2019-05-19 Emilia Chamorro 16:10:00 Sabianist URINALYSIS SCREEN AND MICROSCOPY, 2019-05-19 Dayna Chamorro WITH REFLEX TO CULTURE 16:10:00 Sabianist INFLUENZA ANTIGEN TEST, REFLEX 2019-05-19 Emilia Chamorro NEGATIVE TO RPP 15:30:00 Sabianist RESPIRATORY PATHOGEN PANEL 2019-05-19 Emilia Chamorro on 15:30:00 Sabianist ECG 12-LEAD 2019-05-19 John Bright 14:32:45 Cheondoism Sabianist BASIC METABOLIC PANEL 2019-04-21 Millicent Espinoza 05:30:00 Sabianist CBC HEMOGRAM 2019-04-21 Millicent Espinoza 05:30:00 Sabianist ESTIMATED GFR 2019-04-21 Millicent Espinoza 05:30:[address] CHEST WO CONTRAST 2019-04-20 Manuela Bella 11:31:00 Namita Sabianist XR CHEST 1 VW PORTABLE 2019-04-20 Millicent Espinoza Richardson 06:06:38 Sabianist BASIC METABOLIC PANEL 2019-04-20 Millicent Espinoza Richardson 05:30:00 Sabianist CBC HEMOGRAM 2019-04-20 Millicent Espinoza Richardson 05:30:00 Sabianist ESTIMATED GFR 2019-04-20 Millicent Espinoza Richardson 05:30:00 Sabianist HC COMPLETE BLD COUNT W/AUTO DIFF 2019-04-19 Jose Enrique [facility] 05:57:00 Sabianist BASIC METABOLIC PANEL 2019-04-19 [facility] 05:57:00 Sabianist ESTIMATED GFR 2019-04-19 [facility] 05:57:00 Sabianist XR CHEST 1 VW PORTABLE 2019-04-18 Manuela Bella Richardson 13:46:22 Namita Sabianist BASIC METABOLIC PANEL 2019-04-18 [facility] 05:30:00 T. Sabianist HC COMPLETE BLD COUNT W/AUTO DIFF 2019-04-18 [facility] 05:30:00 T. Sabianist IONIZED CALCIUM 2019-04-18 [facility] 05:30:00 T. Sabianist MAGNESIUM LEVEL 2019-04-18 [facility] 05:30:00 T. Sabianist PHOSPHORUS LEVEL 2019-04-18 [facility] 05:30:00 T. Sabianist ESTIMATED GFR 2019-04-18 [facility] 05:30:00 T. Sabianist POC GLUCOSE 2019-04-17 LapsiaHonorio Richardson 12:04:00 [facility] Sabianist POC GLUCOSE 2019-04-17 Agustín Mckeon Richardson 04:54:00 Veto Sabianist BASIC METABOLIC PANEL 2019-04-17 [facility] 03:35:00 T. Sabianist HC COMPLETE BLD COUNT W/AUTO DIFF 2019-04-17 [facility] 03:35:00 T. Sabianist IONIZED CALCIUM 2019-04-17 [facility] 03:35:00 T. Sabianist MAGNESIUM LEVEL 2019-04-17 [facility] 03:35:00 T. Sabianist PHOSPHORUS LEVEL 2019-04-17 [facility] 03:35:00 T. Sabianist ESTIMATED GFR 2019-04-17 [facility] 03:35:00 T. Sabianist XR CHEST 1 VW PORTABLE 2019-04-17 [facility] 02:06:35 T. Sabianist POC GLUCOSE 2019-04-17 [facility] 01:17:00 Vincent Sabianist POC GLUCOSE 2019-04-16 [facility] 20:59:00 Vincent Sabianist POC GLUCOSE 2019-04-16 [facility] 17:10:00 Vincent Sabianist POC GLUCOSE 2019-04-16 [facility] 14:12:00 Veto Garcia ARTERIAL BLOOD GAS, CORRECTED 2019-04-16 Linda Agustín [place] 12:33:00 Veto Garcia SODIUM LEVEL, SYRINGE 2019-04-16 [facility] 12:33:00 Veto Sabianist POTASSIUM, SYRINGE 2019-04-16 [facility] 12:33:00 Veto Garcia HEMOGLOBIN, SYRINGE 2019-04-16 [facility] 12:33:00 Vincent Sabianist GLUCOSE LEVEL, SYRINGE 2019-04-16 [facility] 12:33:00 Veto Garcia IONIZED CALCIUM, ARTERIAL 2019-04-16 Agustín Mckeon n 12:33:00 Vincjonatan Sabianist MAGNESIUM LEVEL 2019-04-16 [facility] 12:33:00 Vincjonatan Sabianist POC GLUCOSE 2019-04-16 [facility] 08:48:00 Veto Garcia SURGICAL PATHOLOGY REQUEST 2019-04-16 Agustín Mckeont on 07:35:00 Veto Garcia ANTI XA, UNFRACTIONATED 2019-04-16 Sheeba Bush 05:40:00 Bryannarasta Garcia PARTIAL THROMBOPLASTIN TIME (PTT) 2019-04-16 Sheeba Bush 05:30:00 Ja Garcia PROTHROMBIN TIME WITH INR 2019-04-16 Sheeba Bush 05:30:00 Bryannarasta EricksonSabianist POC GLUCOSE 2019-04-16 Agustín Mckeon Richardson 05:07:00 Veto Garcia HC COMPLETE BLD COUNT W/AUTO DIFF 2019-04-16 Eleazar [facility] 04:15:00 Maghinay Sabianist IONIZED CALCIUM 2019-04-16 [facility] 04:15:00 Maghinay Sabianist BASIC METABOLIC PANEL 2019-04-16 [facility] 03:45:00 T. Sabianist MAGNESIUM LEVEL 2019-04-16 [facility] 03:45:00 T. Sabianist PHOSPHORUS LEVEL 2019-04-16 [facility] 03:45:00 T. Sabianist ESTIMATED GFR 2019-04-16 [facility] 03:45:00 Maghinay Sabianist XR CHEST 1 VW PORTABLE 2019-04-16 [facility] 02:18:45 T. Sabianist TROPONIN 2019-04-16 [facility] 00:45:00 T. Sabianist POC GLUCOSE 2019-04-16 [facility] 00:39:00 Veto Sabianist ANTI XA, UNFRACTIONATED 2019-04-15 [facility] 23:19:00 Maghinay Sabianist US DUPLEX ARTERIAL UPPER EXTREMITY 2019-04-15 [facility] RIGHT 23:10:39 Maghinay Sabianist XR CHEST 1 VW PORTABLE 2019-04-15 [facility] 22:53:10 Maghinay Sabianist POC GLUCOSE 2019-04-15 [facility] 21:21:00 Veto Sabianist TROPONIN 2019-04-15 [facility] 20:30:00 T. Sabianist XR CHEST 1 VW PORTABLE 2019-04-15 YordyPricila Richardson 16:38:51 Brissa Garcia HC COMPLETE BLD COUNT W/AUTO DIFF 2019-04-15 [facility] 16:25:00 T. Sabianist BASIC METABOLIC PANEL 2019-04-15 [facility] 16:25:00 T. Sabianist TROPONIN 2019-04-15 [facility] 16:25:00 T. Sabianist ESTIMATED GFR 2019-04-15 [facility] 16:25:00 T. Sabianist RESPIRATORY PATHOGEN PANEL 2019-04-15 [facility] ton 16:21:00 T. Sabianist ECG 12-LEAD 2019-04-15 [facility] 16:02:41 T. Sabianist POC GLUCOSE 2019-04-15 [facility] 15:55:00 Veto Garcia OR [place] < 1 HOUR 2019-04-15 [facility] 15:30:00 T. Sabianist ARTERIAL BLOOD GAS, CORRECTED 2019-04-15 Agustín Mckeon [place] 14:28:00 Veto Garcia HEMOGLOBIN, SYRINGE 2019-04-15 [facility], [facility] 14:28:00 Veto Garcia SODIUM LEVEL, SYRINGE 2019-04-15 [facility], [facility] 14:28:00 Veto Garcia POTASSIUM, SYRINGE 2019-04-15 [facility], [facility] 14:28:00 Veto Garcia IONIZED CALCIUM, ARTERIAL 2019-04-15 [facility] 14:28:00 Veto Garcia GLUCOSE LEVEL, SYRINGE 2019-04-15 [facility], [facility] 14:28:00 Veto Garcia MAGNESIUM LEVEL 2019-04-15 [facility] 14:28:00 Veto Garcia CENTRAL LINE 2019-04-15 Roberto [facility] 14:21:48 Stuart Garcia ARTERIAL LINE 2019-04-15 [place] [facility] 14:21:14 Stuart Garcia PREPARE RBC 2019-04-15 Pricila Scales 13:20:00 Brissa Garcia PREPARE FRESH FROZEN PLASMA 2019-04-15 Pricila Scales 13:20:00 Brissa Garcia POC GLUCOSE 2019-04-15 [facility] 12:31:00 Veto Garcia BLOOD CULTURE, AEROBIC & ANAEROBIC 2019-04-15 Reno Scales 12:18:00 Brissa Garcia POC GLUCOSE 2019-04-15 Rafatilirca [facility] 11:24:00 Veto Garcia URINE CULTURE 2019-04-15 Pricila Scales 11:15:00 Brissa Garcia URINALYSIS SCREEN AND MICROSCOPY, 2019-04-15 Ricardo Scales WITH REFLEX TO CULTURE 11:15:00 Brissa Garcia RESPIRATORY CULTURE, QUANTITATIVE 2019-04-15 Ricardo Scales 11:10:00 Brissa Garcia GRAM STAIN 2019-04-15 Pricila Scales 11:10:00 Brissa Garcia XR CHEST 1 VW PORTABLE 2019-04-15 Pricila Scales Richardson 11:06:33 Brissa Garcia ARTERIAL BLOOD GAS 2019-04-15 Pricila Scales Richardson 11:05:00 Brissa Garcia BLOOD CULTURE, AEROBIC & ANAEROBIC 2019-04-15 Ren[place] Scales ricardo Richardson 11:00:00 Brissa Garcia HC COMPLETE BLD COUNT W/AUTO DIFF 2019-04-15 Ricardo Scales Richardson 11:00:00 Brissa Garcia PROTHROMBIN TIME WITH INR 2019-04-15 Pricila Scales [facility] on 11:00:00 Brissa Garcia PARTIAL THROMBOPLASTIN TIME (PTT) 2019-04-15 Ricardo Scales Richardson 11:00:00 Brissa Garcia COMPREHENSIVE METABOLIC PANEL 2019-04-15 Pricila Scales [facility] 11:00:00 Brissa Garcia MAGNESIUM LEVEL 2019-04-15 Pricila Scales Richardson 11:00:00 Brissa Garcia PHOSPHORUS LEVEL 2019-04-15 Pricila Scales Richardson 11:00:00 Brissa Garcia THYROID STIMULATING HORMONE 2019-04-15 Pricila Scales Brien ston 11:00:00 Brissa Garcia T4, FREE 2019-04-15 Pricila Scales Richardson 11:00:00 Brissa Garcia ARTERIAL BLOOD GAS 2019-04-15 Pricila Scales Richardson 11:00:00 Brissa Garcia ESTIMATED GFR 2019-04-15 Pricila Scales Richardson 11:00:00 Brissa Garcia LIPID PANEL 2019-03-31 Kris Parrish 04:00:00 Sabianist TROPONIN 2019-03-30 Patrick Espinoza 04:45:00 Natvarlal Sabianist THYROID STIMULATING HORMONE 2019-03-30 Kris Parrish [facility] 04:45:00 Sabianist T4, FREE 2019-03-30 Kris Parrish 04:45:00 Sabianist TTE COMPLETE, WO CONTRAST, W 2019-03-29 Patrick Espinoza [place] DOPPLER ([id number]) 14:35:[address] [facility]GIOGRAM PE [facility]03[facility] 13:17[facility]23 Teodoro Sabianist SPUTUM CULTURE 2019-03-29 El, [facility] 12:46:00 Teodoro Sabianist GRAM STAIN 2019-03-29 Nikko [facility] 12:46:00 Teodoro Sabianist TROPONIN 2019-03-29 Patrick Espinoza Richardson 10:46:00 Natvarlal Sabianist ALPHA-1 ANTITRYPSIN LEVEL 2019-03-29 Nikko [facility] [place] n 10:46:00 Teodoro Sabianist ARTERIAL BLOOD GAS 2019-03-28 [facility] 21:18:00 Ray Sabianist PHOSPHORUS LEVEL 2019-03-28 [facility], [facility] 18:19:00 Ary Sabianist ARTERIAL BLOOD GAS 2019-03-28 [facility] 17:38:00 Ray Sabianist XR CHEST 1 VW PORTABLE 2019-03-28 [facility] 17:30:10 Ray Sabianist BLOOD CULTURE, AEROBIC & ANAEROBIC 2019-03-28 [facility] 17:03:00 Ray Sabianist BLOOD CULTURE, AEROBIC & ANAEROBIC 2019-03-28 [facility], [facility] 16:55:00 Ray Sabianist INFLUENZA ANTIGEN TEST, REFLEX 2019-03-28 [facility], [facility] og NEGATIVE TO RPP 16:53:00 Ray Sabianist RESPIRATORY PATHOGEN PANEL 2019-03-28 [facility], [facility] on 16:53:00 Ray Sabianist HC COMPLETE BLD COUNT W/AUTO DIFF 2019-03-28 [facility], [facility] 16:53:00 Ray Sabianist PROTHROMBIN TIME WITH INR 2019-03-28 [facility], [facility] n 16:53:00 Ray Sabianist PARTIAL THROMBOPLASTIN TIME (PTT) 2019-03-28 [facility], [facility] 16:53:00 Ray Sabianist COMPREHENSIVE METABOLIC PANEL 2019-03-28 [facility], [facility] [place] 16:53:00 Ray Sabianist TROPONIN 2019-03-28 [facility], [facility] 16:53:00 Ray Sabianist ESTIMATED GFR 2019-03-28 [facility], [facility] 16:53:00 Ray Sabianist MAGNESIUM LEVEL 2019-03-28 [facility], [facility] 16:53:00 Ray Sabianist PHOSPHORUS LEVEL 2019-03-28 [facility], [facility] 16:53:00 Ray Sabianist [place] [facility], E/M 30-74 2019-03-28 RehrerCl[place] ton MINUTES 16:48:42 Ray Garcia ECG ED PRELIMINARY INTERPRETATION 2019-03-28 Clay Coughlin 16:48:42 Ray Garcia ECG 12-LEAD 2019-03-28 CiararerClay 16:43:09 Ray Garcia Plan of Care Planned Activity Planned Date Details Comments Source Future Scheduled 2020-04-04 INFLUENZA VACCINE [place] [facility] Test 00:00:00 [code = INFLUENZA VACCINE] Future Scheduled 2013 65+ PNEUMOCOCCAL [place] Sabianist Test 00:00:00 VACCINE (1 of 2 - PCV13) [code = 65+ PNEUMOCOCCAL VACCINE (1 of 2 - PCV13)] Future Scheduled 1998 BREAST CANCER [facility] thodist Test 00:00:00 SCREENING [code = BREAST CANCER SCREENING] Future Scheduled 1998 COLONOSCOPY [place]CRE[place]ING [place] [facility]ianist Test 00:00:00 [code = COLONOSCOPY SCREENING] Future Scheduled 1998 SHINGLES VACCINES (#1) [place] Sabianist Test 00:00:00 [code = SHINGLES VACCINES (#1)] Encounters Start End Encounter Admission Attending Care Care Encounter Source Date/Time Date/Time Type Type Clinicians Facility Department ID 2019-07-06 Inpatient [email or web address] MED 0002 [facility] W 15:34:00 2019-10-23 2019-10-23 Outpatient [facility] [id number] Richardson 00:00:00 00:00:00 STACEY [address] 2019-10-04 2019-10-04 [id number] [place] 00:00:00 00:00:00 KERRIE [address] 2019-09-13 2019-09-13 [facility] [id number] Richardson 00:00:00 00:00:00 KERRIE [address] 2019-09-13 2019-09-13 [facility] [id number] Richardson 00:00:00 00:00:00 KERRIE [address] 2019-09-04 2019-09-05 [facility] [id number] Richardson 00:00:00 00:00:00 KERRIE [address] 2019-07-12 2019-08-31 Inpatient JASPER, [facility] 012 [id number] Richardson 00:00:00 00:00:00 SHAILESH 559 Method i 2019-07-06 2019-07-12 Outpatient Andrade, [facility] [id number] 15:34:00 15:34:00 Mehrlloyd 02 2019-05-19 2019-05-19 Emergency TU, YEN-TE [facility] [id number] Richardson 00:00:00 00:00:00 654 Method i 2019-04-15 2019-04-21 Inpatient SHEILA, [facility] 623 [id number] Richardson 00:00:00 00:00:00 RANGANATH 514 Meth callie 2019-03-28 2019-04-02 Inpatient ALEXIS [facility] 064 [id number] Richardson 00:00:00 00:00:00 AMITKUMAR 854 Meth callie Results Test Description Test Time Test Comments Results Result Comments Source Surgical pathology request 2019-09-01 09:48:45 Test Item Value Reference Range Interpretation Comme [facility] Case number (test code = 8907148) [id number] Surgical pathology report (test code = See link below for PDF Lab R eport 2258) Result status (test code = 5029452) This is Supplemental Report for [id number] [facility] [id number] 07:59:45 Test Item Value Reference Range Interpretation Comments BNP (test code = 90882-6) 234 pg/mL 0-100 H Lab Interpretation (test code = Abnormal 31139-6) [facility] [id number] 07:34:59 Test Item Value Reference Range Interpretation Comments Sodium (test code = 2951-2) 136 135- 148 mEq/L Potassium (test code = 2823-3) 3.5 3.5- 5.0 mEq/L Chloride (test code = 2075-0) 97 98- 112 mEq/L L CO2 (test code = 2027-9) 25 24- 31 mEq/L Anion gap (test code = 78998-1) 14@ANIO 7- 15 mEq/L BUN (test code = 3094-0) 17 mg/dL 8-23 Creatinine (test code = 2160-0) 1.33 mg/dL 0.5-0.9 H Glucose (test code = 2345-7) 99 mg/dL 65-99 Calcium (test code = 74882-1) 9.1 mg/dL 8.8-10.2 Lab Interpretation (test code = Abnormal 09285-6) Isiah MethodistMagnesium [id number] 07:34:59 Test Item Value Reference Range Interpretation Comments Magnesium (test code = 25689-4) 1.7 mg/dL 1.6-2.4 Richardson MethodistEstimated [id number] 07:34:59 Test Item Value Reference Range Interpretation Comments Estimated GFR (test 40 mL/min/1.73 m2 A Yvan flores Units code = 5488) InterpretationG 1 >=90 Cinthia l or highG2 60-89 Mildly decrease dG3a 45-59 Mil dly to moderately decr ownkmH6e 30-44 Moderately to s everely decreasedG4 15-29 Severe ly decreasedG5 <15 Kidney dmitry lureThe eGFR was calcul ated using the Chron Kidney Disease Epidemiology Collaboration ( CKD-EPI) equation. Interpretation is based on recommendati ons of the National Ki dney [facility]-Kidn ey Disease Outcome s Quality Initiat ayaan (NKF-KDOQI) pub lished in 2013. Lab Interpretation Abnormal (test code = 86399-7) Joyce MethodistCBC with platelet and [id number] 07:18:54 Test Item Value Reference Range Interpretation Comments WBC (test code = 57242-2) 5.22 4.50- 11.00 k/uL RBC (test code = 41151-7) 3.23 m/uL 4.2-5.5 L HGB (test code = 718-7) 9.0 g/dL 12-16 L HCT (test code = 4544-3) 29.5 % 37-47 L MCV (test code = 787-2) 91.3 fL 82-100 MCH (test code = 785-6) 27.9 pg 27-34 MCHC (test code = 786-4) 30.5 g/dL 31-37 L RDW - SD (test code = 54.4 fL 37-55 00397-2) MPV (test code = 12518-6) 10.2 fL 8.8-13.2 Platelet count (test code 299 150- 400 k/uL = 31702-9) Nucleated RBC (test code 0.00 /100 WBC = 16229-3) Neutrophils (test code = 64.1 % 39-69 44177-1) Lymphocytes (test code = 20.5 % 25-45 L 20151-2) Monocytes (test code = 11.7 % 0-10 H 10542-8) Eosinophils (test code = 2.9 % 0-5 50800-4) Basophils (test code = 0.4 % 0-1 69257-0) Immature granulocytes 0.4 % 0-1 "Immat ure (test code = 38928-6) granul ocytes" (promyelocytes, myelocytes, metamyelocytes) Lab Interpretation (test Abnormal code = 99103-2) Richardson MethodistXR Chest 1 [id number] 00:42:42Hm Interface, Radiology Results 08/31/2019 12:45 AM CSTEXAMINATION: XR CHEST 1 PORTABLECLINICAL HISTORY: chfCOMPARISON: 08/17/2019IMPRESSION:Cardiomediastinal silhouette is within normal limits.No consolidations or pneumothorax. Trace bilateral pleural effusions.No acute osseous abnormalities. Moderate degenerative change of the thoracic spine. Mild degenerative change of the bilateral shoulders.[facility]-[id number] MethodistMRI Rectal W Wo Contrast 2019-08-30 20:11:53Hm Interface, Radiology Results 08/30/2019 8:15 PM CSTEXAMINATION: MRI RECTAL W WO CONTRASTCLINICAL HISTORY: stage rectal cancerCOMPARISON: None.TECHNIQUE: Multiplanar, multisequence MRIof the pelvis with and without contrast material with a rectal cancer protocol. High- resolution T2 images were obtained.IMPRESSION:Tumor location: low. The inferior margin of the tumor is 3 cm from the anal verge and 0 cm from the top of the anal sphincter complex. Maximal thickness: 1.4 cmLength: 3.3 cm. Morphology: Semiannular, along the left half of the lower rectum. .Muscularis propria: Subtle extension beyond the muscularis propria up to 2.5 mm along the left posterolateral aspect, series 8 images 8 and 9 (T3b). The tumor extends up to the top of the intersphincteric plane, thoughit does not appear to descend into it. CRM status: The extension beyond the muscular propria remains at least 3 mm away from the mesorectal fascia, series 8 image 9. Nodes: A tiny 3 mm node in the left mesorectum anteriorly, series 8 image 11, is heterogeneous in signal intensity, though without any other malignant features. A couple other tiny nodes measuring no larger than 3 mm elsewhere withinthe mesorectum have no suspicious features. .Evidence of extramural vascular invasion: None.Peritoneal reflection: No evidence of involvement.Distal colonic diverticulosis partially seen. Nabothian cysts in the cervix.Fluid and heterogeneous signal intensity within the endometrium, with measures 6 mm, which is within normal limits, if there is no postmenopausal bleeding; confirm clinically. Tiny subendometrial cysts, dubious clinical significance. Blooming artifacts in the upper right hemipelvis from surgical clips.Visualized bones show no suspicious lesion. SUMMARY:T3bN0 , CRM -, low rectal tumor as detailed above.Fluid and heterogeneous signal within the endometrium, consideration for hysteroscopy is advised, especially if there is any postmenopausal bleeding.[facility]-[id number] MethodistCT Abdomen Pelvis Wo [id number] 09:31:48Hm Interface, Radiology Results 08/30/2019 9:34 AM CSTEXAMINATION: CT ABDOMEN PELVIS WO CONTRASTCLINICAL HISTORY: stage rectal cancerTECHNIQUE: Multi-detector computed axial tomography (CAT) of the abdomen and pelvis was performed without IV iodinated contrast. Sagittal and coronal computerized reformatted images were created at a workstation and archived for review.DOSE REDUCTION: CT imaging was performed with iterative reconstruction technique and/or automated exposure control to reduce radiation dose.COMPARISON: None.IMPRESSION:1.Low rectal carcinoma.2.No evidence of metastatic disease.FINDINGS:ABDOMEN:Right kidney is small and exhibits diffuse cortical atrophy, findings consistent with chronic ischemia.Probable 1.3 cm cyst of the medial interpolar left kidney.Probable 1.3 cm adenoma of the medial limb of the left adrenal.Liver, spleen, pancreas, and right adrenal are unremarkable.Gallbladder is normal and the pancreaticobiliary system is nondistended. Semiannular eccentric wall thickening measuring up to 1.6 cm involving the anterior, left lateral, and posterior tai of the lower rectum concordant with the provided history of rectal carcinoma.Surgical clips in the gastricfundus and sigmoid colon. Moderately severe diverticulosis of the sigmoid colon without diverticulitis. Appendix is not visualized.Diffuse and severe atherosclerotic disease of the aorta, mesenteric, and iliofemoral arteries with luminal stenoses. Aorta is nonaneurysmal.No adenopathy, free fluid, or fluid collection.PELVIS:No adenopathy, free fluid, fluid collection.Specifically, there is no mesorectal or inferior mesenteric lymphadenopathy.Uterus is retroverted, and there is a 1 cm subserosal fibroid of the posterior fundus. Adnexa and urinary bladder are unremarkable. Tiny fat- containing umbilical herniaOTHER:Mild cardiomegaly. Mitral annular and right coronary artery calcifications. No pericardial effusion.Bibasilar linear subsegmental atelectasis and scarring. Trace left pleural effusion.No acute or suspicious osseous lesion is identified. Multilevel discogenic hypertrophic osteophytosis of the thoracolumbar spine.[facility]-[id number] Sabianist Electrophysiology [id number] 18:25:34HuKris ramirez MD - 08/30/2019 4:48 PM CSTRichardson MethodistCath lab [id number] 18:25:07HuKris ramirez MD - 08/30/2019 4:48 PM CSTAttending: Dr. Kris Parrish Interventional Fellow: Alvarez Gusman MD EQUIPMENT/ANTICOAGULATION: Right Common Femoral Xjeotp7N Sheath AL0.75 Guide Catheter Hi-Torque Floppy XS coronary wire Anticoagulation: Angiomax bolus and Infusion with ACT >250 sec prior to procedure PROCEDURAL DETAILS: Due to potential for conduction issues during intervention, 5F sheath was placed with placement of a temporary pacer wire which ultimately was removed at the end of the case after intervention.The RCA was engaged with the AL0.75 Guide Catheter (initial attempts with ART1, ART2, and AL1 guide catheters) and a Hi-Torque Floppy XS coronary wire was advanced into the distal PL branch. The lesion in the distal RCA was pre-dilated with a 3 x 12 mm semi-compliant balloon at 10 edna and stented with a 3.0 x 15 mm Resolute Cipriano KARLA at 16 edna. Final angiography revealed noevidence of dissection or perforation; there was JORGITO 3 flow and 0% residual stenosis.HEMOSTASIS: Manual PressureADDITIONAL POST-PROCEDURE MEDICATIONS: PLAN: 1. ASA load in the labor training manager.2. Clopidogrel 75mg daily . 3. Cardiac medical therapy and aggressive risk factor modification. Cardiac rehabilitation. 4. Transferred in stable condition Isiah MethodistHemoglobin & [id number] 23:44:21 Test Item Value Reference Range Interpretation Comments HGB (test code = 718-7) 10.0 g/dL 12-16 L HCT (test code = 4544-3) 31.1 % 37-47 L Lab Interpretation (test code = Abnormal 27911-3) Isiah MethodistSodium lwvwc0642-54-57 16:23:19 Test Item Value Reference Range Interpretation Comments Sodium (test code = 2951-2) 132 135- 148 mEq/L L Lab Interpretation (test code = Abnormal 00590-7) Isiah MethodistManual jweactuqdlod3228-68-31 12:33:45 Test Item Value Reference Range Interpretation Comments Manual differential (test code = PERFORMED 30582-4) Neutrophils (test code = 74.0 % 39-69 H 23973-9) Lymphocytes (test code = 15.0 % 25-45 L 84339-5) Monocytes (test code = 45399-7) 9.0 % 0-10 Eosinophils (test code = 2.0 % 0-5 70631-5) Basophils (test code = 39061-1) 0.0 % 0-1 Metamyelocytes (test code = 0 % 740-1) Promyelocytes (test code = 0 % 783-1) Platelet slide review (test code Stephen adequate = 69746-4) Anisocytosis (test code = 702-1) Moderate Polychromasia (test code = Moderate 38431-4) Ovalocytes (test code = 774-0) Moderate Lab Interpretation (test code = Abnormal 02061-6) Isiah EricksonistPartial thromboplastin time, ippjjfjle2178-04-75 07:07:07 Test Item Value Reference Range Interpretation Comments PTT (test code = 37.7 23.0- 36.0 sec H PTT thera peutic range 44333-8) for unfractiona alden heparin is61.0- 112.0 seconds which corresponds to Anti-Xa0.3-0.7 U/ml. Lab Interpretation Abnormal (test code = 70048-5) Isiah MethodistProthrombin time with DBR5107-44-55 07:06:21 Test Item Value Reference Range Interpretation Comments Prothrombin time (test 15.4 11.5- 14.5 sec H code = 5902-2) INR (test code = 1.2 The Interna tional 07406-5) Normalized Rati o (INR) is a therapeuti c monitoring tool for patients who ar e stable on oral anticoagulant t herapy. An INR of 2.0-3 .0 is suggested for d eep vein thrombosis/pulm onary embolism. Lab Interpretation Abnormal (test code = 92281-5) Isiah GarciaThyroperoxidase ieywgeqi2825-99-34 17:34:24 Test Item Value Reference Range Interpretation Comments Thyroperoxidase Ab (test code = <0.3 0.0- 9.0 IU/mL 49591-2) Isiah GarciaCarcinoembryonic antigen (CEA)2019-08-25 07:44:44 Test Item Value Reference Range Interpretation Comments CEA (test code = 3.1 ng/mL 0-3.8 Reference r camelia for heavy 2038-12) smokers: 0.0 - 5.5 ng/mLThe JOE Genevieve 8000 CEA immunoassay was used. Results obtaine d with different assay methods or kits should not be used interchangeably and may be different. Isiah GarciaUS Ktwxyvf1153-80-36 11:32:10Hm Interface, Radiology Results 08/23/2019 11:35 AM CSTEXAMINATION: US THYROIDCLINICAL HISTORY: Thyroid nodule incidental on CT MR US no risk factors, Last exam had some external items that might of interfere with imaging studyCOMPARISON: 07/31/2019TECHNIQUE: Transverse and longitudinal sonographic images of the thyroid gland were obtained. Grayscale and color Doppler images were also ob tained.FINDINGS:THYROID MEASUREMENTS:Right: 5.2 x 1.7 x 1.8 cm.Isthmus: 0.4 cm.Left: 5.1 x 2.0 x 1.5cm.THYROID PARENCHYMA:HomogenousThere is a 6 mm TI-RADS 3 nodule in the right thyroid lobe. There are 2 TI-RADS 3 nodules in the left thyroid lobe, both measuring approximate 7 mm.IMPRESSION: Small bilateral TI- RADS 3 nodules. Recommend 1 year follow-up.TRIHEALTH-[id number] TI-RAD S0 points: TR1. Benign. No FNA.2 points: TR2. Not suspicious. No FNA.3 points: TR3. Mildly suspicious. FNA if > or = 2.5 cm. Follow if > or = 1.5 cm.4-6 points: TR4. Moderately suspicious. FNA if > or = 1.5 cm. Follow if > or = 1 cm.7 or more points: TR5. Highly suspicious. FNA if > or = 1 cm. Follow if > or = 0.5 cm.Follow-up of TR3-TR5 nodules that do notmeet biopsy criteria:*TR3: 1,3 and 5 years*TR4: 1,2,3 and 5 years*TR5: 1,2,3,4 and 5 yearsAny nodule that is stable for 5 years regardless of TI-RADS level is considered benignAny nodule whose TI-RADS level increases should have 1 year followup regardless of initial levelDESCRIPTION of CRITERIA:COMPOSITION:*Spongiform (0 pts): Composed predominantly (greater than 50%) of small cystic spaces. Do not add further points for other categories*Mixed cystic and solid (1pt): Assign points for predominant solid component*Solid (2 pts)*Assign 2 points if composition cannot be determined because of calcificationECHOGENICITY:*Anechoic (0 pts): Applies to cystic or almost completely cystic nodules*Hyperechoic/isoechoic (1 pt) / hypoechoic (2pts): Compared to adjacent parenchyma*Very hypoechoic (3 pts): More hypoechoic than strap muscles*Assign 1 point if echogenicity cannot be determinedSHAPE:*Fsuxkh-xwiv-xprk (3pts): Should be assessed on a transverse image with measurements parallel to sound beam for height and perpendicular to sound beam for width. This can usually be assessed by visual inspection.MA RGIN:*Lobulated (2pts): Protrusions into adjacent tissue.*Irregular (2pts) : Jagged, spiculated, or sharp angles*Extrathyroidal extension (3 pts): Obvious invasion equals malignancy*Assign 0 points forsmooth or if margin cannot be determinedECHOGENIC FOCI:*Large, comet tail artifacts (0 pts): V-shaped, > 1 mm, in cystic components*Macrocalcifications (1 pts): Cause acoustic shadowing*Peripheral (2 pts): Complete or incomplete along marginPunctate echogenic foci (3 pts): May have small, comet-tailHoucecile MethodistT4, free 2019-08-23 07:33:26 Test Item Value Reference Range Interpretation Comments T4, free (test code = 3024-7) 1.3 ng/dL 0.9-1.7 Richardson MethodistThyroid stimulating msdjqmb5573-47-30 07:33:26 Test Item Value Reference Range Interpretation Comments TSH (test code = 3016-3) 1.93 0.27- 4.20 uIU/mL Richardson IaylaqhseL40573-17-81 07:33:26 Test Item Value Reference Range Interpretation Comments T3 (test code = 3053-6) 88 ng/dL 80-200 Richardson MethodistCT Head Wo Kcskfzhb1431-57-58 11:35:50Hm Interface, Radiology Results 08/21/2019 11:39 AM CSTEXAMINATION: CT HEAD WO CONTRASTCLI NICAL HISTORY: Headache acute severe worst CAMERON of lifeCOMPARISON 2019.TECHNIQUE: Noncontrast CT of the brain w4as performed from the skull base to the vertex. Both soft tissue and bone reconstruction algorithms are interpreted.CT imaging was performed with iterative reconstruction techniques and/or automated exposure control to reduce radiation dose.FINDINGS:No intracranial hemorrhage, extra-axial collection, or mass-effect is seen. No acute cortical infarct is identified. No hyperdense vessel is seen.Involutional changes of the brain are again noted.No air-fluid level is seen in the visualiz ed portions of the paranasal sinuses. Mastoid air cells are clear.IMPRESSION:No acute intracranial abnormality identified.No significant interval change.HMWB-[id number] MethodistECG 12 yzzo5165-19-54 10:47:11 Test Item Value Reference Range Interpretation Comments Ventricular rate (test 64 code = 253) Atrial rate (test code 64 = 255) [place] interval (test code 178 = 266) QRSD interval (test 86 code = 260) QT interval (test code 448 = 264) QTC interval (test code 462 = 265) P axis 1 (test code = 11 267) QRS axis 1 (test code = -6 268) T wave axis (test code 17 = 270) EKG impression (test Normal sinus code = 273) rhythm-Low voltage QRS-Cannot rule out Anterior infarct (cited on or before 14-AUG-2019)-Abnormal ECG-In automated comparison with ECG of 14-AUG-2019 19:51,-Sinus rhythm has replaced Atrial fibrillation-Vent. rate has decreased BY 35 BPM-QT has lengthened-Electronica lly Signed By Coy Monroy MD ([id number]) on 08/21/2019 10:47:09 AM Isiah MethodistPhosphorus peksz3989-77-02 05:27:12 Test Item Value Reference Range Interpretation Comments Phosphorus (test code = 2777-1) 3.5 mg/dL 2.4-4.5 Joyce MethodistPOC cpdkozd9306-93-94 04:46:37 Test Item Value Reference Range Interpretation Comments POC glucose (test code = 103 mg/dL 65-99 H Ope rator Name: 32132-7) Cinthya Andino ice ID: [id number] able: No Action Neede d Lab Interpretation (test Abnormal code = 18178-0) Isiah GarciaPrepare RBC, 2 Cjzxu4932-21-57 16:29:00 Test Item Value Reference Range Interpretation Comments Product name (test code Red Blood Cells -1, = 25) Leukored Unit number (test code [id number] = 8509362) Product code (test code L2485K08 = 3092) Dispense status (test Transfused code = 24) Blood expiration date (test code = 302) Blood type code (test 6200 code = 308) Blood type (test code = A POSITIVE 1314) Compatibility (test Compatible code = 6400) Isiah MethodistType and fmtdjy5006-41-21 10:28:00 Test Item Value Reference Range Interpretation Comments ABO grouping (test code = 883-9) A Rh type (test code = 31696-8) POS Antibody screen (gel) (test code = NEG 890-4) Isiah MethodistBlood culture, aerobic & ohafwnbgd6405-62-91 07:03:08 Test Item Value Reference Range Interpretation Comments Blood culture No growth Specimen isolate (test after 5 days InformationSpe cimen code = 600-7) of Source: BloodS pecimen incubation. Site: Periphera l Wrist Right Richardson MethodistAnti Xa, sdihcbhgbswuhq7820-75-19 06:45:08 Test Item Value Reference Range Interpretation Comments Anti Xa, unfractionated 0.39 U/mL 0.3-0.7 Ther apeutic Range: (test code = 3274-8) 0.30 - 0.70 U/mL Joyce SabianistCBC xhymiqoe2262-85-62 06:19:34 Test Item Value Reference Range Interpretation Comments WBC (test code = 53368-0) 5.10 4.50- 11.00 k/uL RBC (test code = 24407-9) 2.46 m/uL 4.2-5.5 L HGB (test code = 718-7) 7.2 g/dL 12-16 L HCT (test code = 4544-3) 23.0 % 37-47 L MCV (test code = 787-2) 93.5 fL 82-100 MCH (test code = 785-6) 29.3 pg 27-34 MCHC (test code = 786-4) 31.3 g/dL 31-37 RDW - SD (test code = 63541-4) 55.8 fL 37-55 H MPV (test code = 91051-4) 10.7 fL 8.8-13.2 Platelet count (test code = 193 150- 400 k/uL 05976-2) Nucleated RBC (test code = 0.00 /100 WBC 49130-2) Lab Interpretation (test code = Abnormal 83328-0) Richardson Dreist invasive peripheral vascular gejdkehok1647-51-04 18:46:19 SURGEON:Tello Byrd MDFIRST SAW REPAIRER:Dr. Miladis Koroma.TITLE OF OPERATION:1. Right common to internal carotid artery stent.2. Intracranial runoff injection x4.3. Right femoral angiogram.PREOPERATIVE DIAGNOSES:1. 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 Status post right carotid endarterectomy.3. Status post left hemispheric cerebrovascular accident.POSTOPERATIVE DIAGNOSES:1. Asymptomatic high-grade carotid artery occlusive disease.2. Status post right carotid endarterectomy.3. Status post left hemispheric cerebrovascular accident.ANESTHESIA:Conscious sedation with Versed and fentanyl.ESTIMATED BLOOD LOSS:20 mLCOMPLICATIONS:None.OPERATIVE COURSE:After informed consent was obtained from the patient and with appropriatetime-out procedure taken, coupled with the patient being evaluated by strokeneurology prior to the procedure, she was brought to the cardiac catheterizationlaboratory and placed on the table. Her head was secured in a foam cradle. Theright femoral area was then cleaned and prepared in usual fashion. Theappropriate anatomic landmarks were identified. She then received the firstdoses of Versed and fentanyl and these were supplemented throughout the case. She was continuously monitored by myself and the circulating nurse includingend-tidal CO2, oxygenation, blood pressure, heart rate, and respiration. Shetolerated the anesthetic portion well. Theright femoral area was infused with1% Xylocaine without epinephrine as stated and the artery enteredwithoutdifficulty using a standard 18-gauge AMC needle. A short 5-Ecuadorean arterialsheath was then placed for access. Utilizing a 5-Ecuadorean H1 catheter and a 0.035Wholey exchange wire, the right distal common carotid artery was successfullycannulated. Angiograms were taken in the AP and 60-degree ANN p rojections whileintracranial angiograms were taken in the AP 10-degree cranial angulation yac05-grbehf ANN angulation. Once accomplished, the H1 catheter was removed. Appropriate measurements were taken outside of the operating theater and wesized the desired standard a 9 x 7 x 30 mm. The H1 catheter as stated wasremoved as was the short 5-Ecuadorean sheath and a 6-Ecuadorean shuttle sheath theninserted to the distal right common carotid artery. Positioning was confirmed. The patient received Angiomax for antithrombotic therapy with subsequent ACTgreater than 230 seconds prior to wire passage. At thatpoint, a NAV6 filterwas deployed distal to the stenosis in the distal internal carotid artery. Theflow remained JORGITO-3. The lesion was very carefully measured and noted to beapproximately 85% to 90% of stenosed at the area immediately distal to theprevious endarterectomy site. The vessel was then stented with a 9 x 7 x 30 mmself-deploying Xact stent and postdilated with a 6.5 x 15 mm noncompliantba lloon x2. The patient did not have any hypotension or bradycardia with theballoon procedure, but did have severe coughing reaction x2. This wasself- limiting. Following this, post-procedural angiograms were taken inorthogonal views confirming proper stent placement. Intracranial angiogramshowed no distal embolization or cut off sign. The filter was then successfullyretrieved and the sheath withdrawn to the right common femoral artery where anangiogram was performed to assess arteriotomy placement. While the placementwas proper, the patient had an aberrant circumflex artery, which prohibitedvascular closure. Thus, the shuttle sheath was removed and a short 7-Frenchsheath placed. The sheath will then be removed manually when ACT is less xoou249 seconds. Neurologically, she tolerated the procedure well and had an NIHSSof 0 at the end of the procedure. She was transported out of the [facility] isolation room due to her positive influenza A state. She will beobserved until the sheat h is removed, after which she will be transported backto [place] [address] for observation. As noted,she did not require any pressortherapy during the procedure. She was, however, pretreated with atropine priorto deployment of the stent.Richardson MethodistFerritin mhytu0575-33-36 06:39:23 Test Item Value Reference Range Interpretation Comments Ferritin level (test code = 2276-4) 78 ng/mL 13-150 Richardson MethodistTotal iron binding wubnagvr3831-03-83 06:37:01 Test Item Value Reference Range Interpretation Comments Iron level (test code = 2498-4) 27 ug/dL 37-145 L Iron binding capacity (test code = 257 ug/dL 547-727 0125-7) % Saturation (test code = 2502-3) 10.5 % 15-38 L Lab Interpretation (test code = Abnormal 52870-7) Richardson MethodistRespiratory pathogen gjdux2765-81-39 09:50:59Respiratory pathogen panelNegative for all pathogens tested:Negative for AdenovirusNegative for Coronavirus TOC2Oapkdvwu for Coronavirus AT80Zroainvx for Coronavirus 229ENegative for Coronavirus JO91Vnrduelq for Human MetapneumovirusNegative for Rhinovirus/EnterovirusNegative for Influenza ANegative for Influenza A/Q5Yfcorjvm for Influenza A/F1Gqnitkip for Influenza A/H1-2009Negative for Influenza BNegative for Parainfluenza Virus 1Negative for Parainfluenza Virus 2Negative for Parainfluenza Virus 3Negative for Parainfluenza Virus 4Negative for Respiratory Syncytial VirusNegative for Bordetella pertussisNegative for Chlamydophila pneumoniaeNegative for Mycoplasma pneumoniaeThis real-time PCR assaydetects the presence of nucleic acids (RNA or DNA) for the respiratory pathogens listed. A result of "Not-detected" does not exclude the possibility of the presence of one or more pathogens at concentrations less than the detectable limits of the assay. Comment: Specimen InformationSpecimen Source: Na resSpecimen Site: Not specified [facility] Hepatic function atpkj4045-64-17 05:41:28 Test Item Value Reference Range Interpretation Comments Albumin (test code = 2.8 g/dL 3.5-5 L 1750-7) Total bilirubin (test 0.4 mg/dL 0-1.2 code = 1974-) Bilirubin direct (test <0.2 0-0.3 code = 1967-) Alkaline phosphatase 39 U/L 35-104 (test code = 6768-6) Protein (test code = 6.0 g/dL 6.3-8.3 L [place] 9994.6-7.0 2885-2) g/dL1 mqlq3441.4-7.6 g/dL7 months-4vjas616 .1-7 .3 g/dL1-2 qrzbe550.6-7.5 g/dL>3 iebvt000.0-8.0 g/jZ83-6441235. 3-8. 3 g/dL ALT (test code = 1742-6) 9 U/L 5-50 AST (test code = 1920-8) 10 U/L 10-35 Lab Interpretation (test Abnormal code = 48082-2) [facility] HospitalL[facility], SEPSIS - Now and repeat 2x every 3 hours 2019-08-15 05:39:50 Test Item Value Reference Range Interpretation Comments Lactic acid (test code = 54645-3) 0.9 mmol/L 0.5-2.[address] [facility] xtc1638-96-48 23:51:03 Test Item Value Reference Range Interpretation Comments pH, arterial (test code = 2744-1) 7.41 7.35-7.45 pCO2, arterial (test code = 40 35- 45 mmHg 2019-02) pO2, arterial (test code = 105 80- 90 mmHg H 2703-7) Bicarbonate, arterial (test code 25.0 mmol/L = 1960-4) Base excess, arterial (test code 1 -2 - 2 mEq-L = 1925-7) O2 saturation, arterial (test 98 % 95-100 code = 2708-6) Lab Interpretation (test code = Abnormal 08974-9) Richardson Methodplains [facility] medical centerGram fldco3014-65-40 22:20:00Gram stain isolateOccasional WBC'sNo organisms seen Comment: Specimen InformationSpecimen Source: Spu tumSpecimen Site: [facility] MethodistLactic acid [id number] 21:22:20 Test Item Value Reference Range Interpretation Comments Lactic acid (test code = 14888-6) 0.9 mmol/L 0.5-2.2 [facility] HospitalOsmcfjlquGtnhjfbm7617-48-69 21:05:34 Test Item Value Reference Range Interpretation Comments Troponin (test code = 0.251 ng/mL 0-0.04 H In pat ients 01870-1) suspected of cameron ving a myocardial infarction, lucero ng with all other appropriate cli nical measures and ac tions including ECG a nd other diagnosti cs as appropriate, me asure Ultra TnI at 0 hrs and at 3 hrs.Myocardial infarction VERY LIKELYThe 0 hr TnI level is > 0.10 ng/mL ----- ----- ----- --Holger cardial infarct ion LIKELYThe 0 hr TnI level is > 0.04 ng/mL and 3 hr level is increased or decreased by at least 0.020 ng/ mL ----- ----- ----- Holger cardi al infarction V VENESSA UNLIKELYBoth th e 0 hr and 3 hr TnI levels <= 0.04 ng/mL(within no rmal limits) OR 0 hr is > 0.04 ng/mL and 3 hr is increased OR decreased by le ss than 0.020 ng/m L Lab Interpretation Abnormal (test code = 55428-9) Isiah MethodistActivated clotting [id number] 16:26:04 Test Item Value Reference Range Interpretation Comments Activated clotting time 351 96- 152 sec H Oper ator Name: Tanner (test code = 5298) Zacarias vice ID: [id number] Lab Interpretation Abnormal (test code = 20116-3) Isiah MethodistECG Pre/Post Op (in AM)2019-08-11 16:19:49 Test Item Value Reference Range Interpretation Comments Ventricular rate (test 76 code = 253) Atrial rate (test code 394 = 255) QRSD interval (test 86 code = 260) QT interval (test code 384 = 264) QTC interval (test 432 code = 265) QRS axis 1 (test code 7 = 268) T wave axis (test code 9 = 270) EKG impression (test Atrial code = 273) fibrillation-Nonspecifi c ST abnormality-Abnormal ECG-In automated comparison with ECG of 30-JUL-2019 05:28,-Atrial fibrillation has replaced Sinus rhythm- Isiah EricksonistComprehensive metabolic fxlra8657-83-24 06:00:33 Test Item Value Reference Range Interpretation Comments Sodium (test code = 136 135- 148 mEq/L 2951-2) Potassium (test code = 3.9 3.5- 5.0 mEq/L 2823-3) Chloride (test code = 99 98- 112 mEq/L 5-0) CO2 (test code = 2027-9) 26 24- 31 mEq/L Anion gap (test code = 11@ANIO 7- 15 mEq/L 30103-3) BUN (test code = 3094-0) 23 mg/dL 8-23 Creatinine (test code = 1.37 mg/dL 0.5-0.9 H 2160-0) Glucose (test code = 97 mg/dL 65-99 2345-7) Calcium (test code = 9.2 mg/dL 8.8-10.2 24712-5) Protein (test code = 5.5 g/dL 6.3-8.3 L 9994.6-7.0 2885-2) g/dL1 jnwp8833.4-7.6 g/dL7 months-5udqr397 .1- 7.3 g/dL1-2 poeuu920.6-7.5 g/dL>3 exzkw476.0-8.0 g/nU74-7396410. 3-8 .3 g/dL Albumin (test code = 3.1 g/dL 3.5-5 L 1751-7) A/G ratio (test code = 1.3 0.7-3.8 1759-0) Alkaline phosphatase 34 U/L 35-104 L (test code = 6768-6) AST (test code = 1920-8) 10 U/L 10-35 ALT (test code = 1742-6) 12 U/L 5-50 Total bilirubin (test 0.3 mg/dL 0-1.2 code = 1975-2) Lab Interpretation (test Abnormal code = 49890-8) Richardson SabianistVENIPUNC NEED PHYS SKILL,DX OR QU6633-69-12 10:12:22Kirill Peoples 08/08/2019 10:14 AMMidlineDate/Time: 08/08/2019 10:12 AMPerformed by: Cali Younguthorized by: Shailesh Hutchinson MD Consent: Consent obtained: Verbal Consent given by: Patient Risks discussed: arterial puncture, incorrect placement, nerve damage, bleeding, infection, superficialthrombus and deep vein thrombusUniversal protocol: Procedure explained and questions answered to pa tient or proxy's satisfaction: yes Relevant documents present and verified: yes Test results available and properly labeled: yes Imaging studies available: yes Required blood products, implants, devices, and special equipment available: yes Site/side marked: yes Immediately prior to p rocedure, a time out was called: yes Patient identity confirmed: Verbally with patient, arm bandand hospital-assigned identification numberPre-procedure details: Hand hygiene: Hand hygiene performed prior to insertion Sterile barrier technique: All elements of maximal sterile technique followed Skin preparation: 2% chlorhexidine Skin preparation agent: Skin preparation agent completelydried prior to procedure Anesthesia (see MAR for exact dosages): Anesthesia method: Local infiltration Local anesthetic: Lidocaine 1% w/o epi Route of administration: SubcutaneousLine PlacementDetails: Patient position: Flat Vessel Size (mm): 3.0. 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 Location: Left basilic Site selection rationale: LIMB ALERT HX OF RIGHT ARM VASCULAR SURGERY Device Type: Non-valved Catheter size: 5 Fr Catheter to vein ratio: 57% Line Characteristics: Catheter Brand: Vidavee MIDLINE Internal Catheter Length (cm): 12 Total Catheter Length (cm): 12 Catheter Lot Number: [id number] Catheter Expiration Date:1Procedure Details: Landmarks identified: yes Ultrasound guidance: yes Sterile ultrasound techniques: Sterile gel and sterile probe covers were used Number of attempts: 1 Number ofPICC kits used during procedure: 1 Purpose of procedure: Midline Placement Patency/Placement: Fl ushes without difficulty, flushed with 10 mL normal saline, positive blood return and injection cap placed PICC placed utlizing ultrasound-guided Modified Seldinger Technique: Yes Dressing/Securement: Antimicrobial dressing applied, transparent semipermeable dressing, catheter securement device and dressing dry and intact Blood Loss Amount: Less than 20 mLPost-Procedure Details: Post-procedure: Dressing applied Patient tolerance of procedure: Tolerated well, no immediate [facility] 2019-08-04 00:26:16selective cor ,lhc ,lva, selective bilateralcarotid arteriograms findings coronary: rca mild 30-355 mid vessel narrowing, distal rac at bifurcation pda/daniel 80 % stenosis,; cfx trunk patent; lad mid vessel 50- 55 5 And sequential 60-70 % stenosis lvef 60 %,lvedp 16-18 mmhgcarotid arteriograms bilateral ; s/p right CEA proximal RAQUEL,; stenosis distal to CEA- 80-85 % ; left carotid : LICA 50-55 % rec; staged Carotid stent[ marisa Juarez interventionalist for carotid stenosis; pci planned rca bifurcational stenosis =/- lad mid vessel assessment regarding anemia-iron deficiency , gi sxs neccesitating GI consul/clearance before proceed with stenting and need for dapt 6 months underlying hx hypercapneic respiratiory insufficiency neccessitating intubation past. Virk /sp=ob - concern ischemic component to virk /spob. New onset r atrial fibrillation necessitation additional clearance for dapt and /or anticoagulationRichardson Maryse duplex venous lower extremity 2019-08-03 08:39:00Interface, Radiology Results In 08/03/2019 8:39 AM [facility] Lower Extremity Venous [address] [address] Pat.Name: SUKI KOROMA Pat.ID: [id number] .Date: 08/02/2019 Refer.MD: KRIS PARRISH MD Exam Time: 9:49:00 AM Study Type:LE Venous Age: 2 1950,68Y Sex: FEMALE Sonogrphr: Ann Baldwin RVT Pat. Stat.:Inpatient Room: [address] Vol: [place], CPT - 4: [address] Echo Event ID:[id number] Order ID: [id number] Reason for Study:Bilateral leg swelling per ordering physician.History of acute on chronic CHF, COPD< respiratory failure, morbidobesity, hypertension, hyperlipidemia, CAD, A-Fib on Xarelto.Procedures: Colorflow, Grayscale/2D, Pulsed wave DopplerRace: C SUMMARY: * Normal Reflux Criteria: < 0.5 seconds DUPLEX SCAN OBSERVATIONS Deep Veins Superficial Veins Right Left Right LeftEIV GSV (prox) Normal NormalCFV Normal Normal (above knee)Femoral Normal Normal GSV (dist) Normal NormalProfunda Normal Normal (below knee)Popliteal Normal NormalPT (prox) Normal Normal SSV Normal NormalPT (dist) Normal Normal Peroneal Normal Normal Gastrocs Normal Normal RIGHT: There is normal compressibility with no evidence of echogenicmaterial noted within the lumen of the visualized veins. Colorflow andDoppler signals are pulsatile.LEFT: There is normal compressibility with no evidence of echogenicmaterial noted within the lumen of the visualized veins. Colorflow andDoppler signals are pulsatile. PRELIMINARY FINDINGS1. No evidence of venous thrombosis of the visualized veins.2. Colorflow and Doppler signals are pulsatile, bilaterally.PHYSICIAN INTERPRETATION Venous examination of the both lower extremities demonstrated noevidence of venous thrombosis in the visualized veins. Normalcompressibility and augmentation of all veins visualized. FINDINGS:---- Signed 08/03/2019 08:39 Jil Miller MD, RPVI Richardson MethodistSputum atpgfbo6499-28-93 06:03:08 Test Item Value Reference Range Interpretation Comments Sputum culture No growth Specimen isolate (test after 2 days. Information ecimen code = 2234) Source: SputumS pecimen Site: Expectora alden Richardson MethodistPotassium [id number] 12:16:26 Test Item Value Reference Range Interpretation Comments Potassium (test code = 2823-3) 3.8 3.5- 5.0 mEq/L Richardson MethodistVenous blood [id number] 21:01:54 Test Item Value Reference Range Interpretation Comments pH, venous (test code = 2746-6) 7.35 7.32-7.42 pCO2, venous (test code = 2020-4) 46 45- 51 mmHg pO2, venous (test code = 2705-2) 46 25- 40 mmHg H Base excess, venous (test code = -1 meq/L -2-2 1927-3) O2 saturation, venous (test code 83 % 40-70 H = 2711-0) Bicarbonate, venous (test code = 24.3 mmol/L 56838-5) Lab Interpretation (test code = Abnormal 67362-9) Richardson SabianistLegionella urinary [id number] 19:06:25 Test Item Value Reference Interpretation Comments Range Legionella Negative for Specimen urinary antigen Legionella Jaylon wright (test code = serogroup 1 Source: UrineSp ecimen 1658) antigen. [facility] MethodistStreptococcus pneumoniae urinary [id number] 19:06:25 Test Item Value Reference Interpretation Comments Range Strep pneumo Negative for Specimen urinary Ag Streptococcus [facility] (test code = pneumoniae antigen. Source: UrineSpecimen 6100) Site: [place] Richardson MethodistCentral Line Eesrqbpsf8444-70-77 10:11:55Lopez Eagle MD 07/30/2019 10:13 [facility] CITY[facility]ral Line InsertionPerformed by: Lopez Eagle MDAuthorized by: Lopez Eagle MD Consent: Consent obtained: Verbal Consent given by: Guardian Risks discussed: Arterial puncture, bleeding, infection, incorrect placement, nerve damage and pneumothorax Alternatives discussed: Alternative treatmentUniversal protocol: Procedure explained and questions answered to patient or proxy's satisfaction: yes Relevant documents present and verified: yes Test results available and properly labeled: yes Imaging studies available: yes Required blood products, implants, devices, and special equipment available: no Site/side marked: yes Immediately prior to procedure, a time out was called: yes Patient identity confirmed: Arm band and hospital-assigned identification numberPre-procedure details: Handhygiene: Hand hygiene performed prior to insertion Sterile barrier technique: All elements of maximal sterile technique followed Skin preparation: 2% chlorhexidine Skin preparation agent: Skin preparation agent completely dried prior to procedure Anesthesia (see MAR for exact dosages): Anesthesia method: Local infiltration Local anesthetic: Lidocaine 1% w/o epiProcedure details: Catheter type: Triple lumen Catheter size: 7 Fr Catheter length (cm): 16 Catheter site: internal jugular vein Catheter Site Laterality: Left Patient position: Trendelenburg Landmarks identified:no Ultrasound guidance: yes Sterile ultrasound techniques: Sterile gel and sterile probe covers were used Number of attempts: 1 Successful placement: yes Post-procedure details: Post-proce dure: Dressing applied and line sutured Assessment: Blood return through all ports, free fluid flow, placement verified by x-ray and no pneumothorax on x-ray Patient tolerance of procedure: Tolerated well, no immediate complications Richardson MethodistXR Abdomen 1 Lubocaxl3319-18-19 06:19:03Hm Interface, Radiology Results Incoming 07/30/2019 6:22 AM CSTXR ABDOMEN 1 PORTABLECLINICAL INDICATION: NGT placementCOMPARISON: None.IMPRESSION:Nasogastric tube courses through the expected gastroesophageal junction, tip extending quite laterally to the left abdomen in the region the gastricbody. Bowel gas pattern is nonspecific. There are scattered atherosclerotic calcifications. Severe spondylosis of the lumbar spine is present.*TRIHEALTH-CR36WNBOAagidyf MethodistAlbumin ntczj6796-93-80 05:41:47 Test Item Value Reference Range Interpretation Comments Albumin (test code = 1751-7) 3.9 g/dL 3.5-5 [facility] blood gas, arterial and srxlb1258-55-57 04:56:44 Test Item Value Reference Range Interpretation Comments pH, arterial, POC 7.13 7.35-7.45 LL (test code = 2744-1) pCO2, arterial, POC 80 35- 45 mm Hg HH (test code = 2019-8) pO2, arterial, POC 50 80- 90 mm Hg LL (test code = 2703-7) Base excess, -4 mmol/L -2-2 L arterial, POC (test code = 1925-7) Bicarbonate, 26.9 mmol/L 21-28 arterial, POC (test code = 1959-4) CO2 calculated, 29 mmol/L 24-31 arterial, POC (test code = 2025-3) O2 saturation, 71 % 95-100 L Fire Extinguisher Repairer Inspector Name : arterial, POC (test Michael Bautista code = 2708-6) Elidia e ID: [id number] POC sodium (test code 135 mmol/L 135-148 = 2947-0) POC potassium (test 3.6 mmol/L 3.5-5 code = 6298-4) POC hematocrit (test 34 % 37-47 L code = 4544-3) POC glucose (test 168 mg/dL 65-99 H code = 2339-0) Ionized calcium, 1.39 mmol/L 1.11-1.32 H arterial, POC (test code = 77116-6) Lab Interpretation Abnormal (test code = 70391-3) [facility] h[facility]xxsv0843[facility]72[facility]20 13:40:08 Test Item Value Reference Range Interpretation Comments Platelet slide review (test code Stephen adequate = 80207-8) Anisocytosis (test code = 702-1) Moderate Polychromasia (test code = Moderate 09374-2) Ovalocytes (test code = 774-0) Moderate Enlarged platelets (test code = Moderate A 35055-0) Giant platelets (test code = Occasional 5908-9) Lab Interpretation (test code = Abnormal 01212-0) Joyce MethodistSpirometry, npqakdktn9031-95-37 13:16:29 Test Item Value Reference Range Interpretation Comments FEV1 Pre (test code = 1.09 L 1.31-2.31 5348) FEV1/FVC % Pre (test code 65.59 % 66.14-85.73 = 5361) FVC Pre (test code = 5354) 1.67 L 1.82-3 PEF Pre (test code = 5367) 3.54 L/s 3.45-6.36 FEF 25-75% Pre (test code 0.53 L/s 0.57-2.67 = 5547) DLCO Pre (test code = 10.17 11.97- 24.97 ml/(min*mmHg) 5423) DL/VA Pre (test code = 3.35 3.20- 5.83 ml/(min*mmHg*L) 5437) VA SB Pre (test code = 3.04 L 3.14-5.34 5444) DLCOc Pre (test code = 13.09 11.97- 24.97 ml/(min*mmHg) 5430) KCOc SB Pre (test code = 4.3 3.20- 5.83 ml/(min*mmHg*L) 5535) Hb Pre (test code = 5540) 7.9 g(Hb)/dL FEV1 Predicted (test code 1.81 = 5302) FEV1 LLN (test code = 1.31 5347) FEV1 % Pre of Predicted 60.4 % (test code = 5308) FVC Predicted (test code = 2.41 5307) FVC LLN (test code = 5353) 1.82 FVC % Pre of Predicted 69.3 % (test code = 5355) FEV1/FVC % Predicted (test 76 code = 5359) FEV1/FVC % LLN (test code 66 = 5360) FEV1/FVC % Pre of 86.4 % Predicted (test code = 5362) FEF 25-75% Predicted (test 1.62 code = 5546) FEF 25-75% LLN (test code 0.57 = 5545) FEF 25-75% % Pre of 32.5 % Predicted (test code = 5548) PEF Predicted (test code = 4.91 5310) PEF LLN (test code = 5366) 3.45 PEF % Pre of Predicted 72 % (test code = 5368) DLCO Predicted (test code 18.47 = 5421) DLCO LLN (test code = 11.97 5422) DLCO % Pre of Predicted 55.1 % (test code = 5424) DLCOc Predicted (test code 18.47 = 5428) DLCOc LLN (test code = 11.97 5429) DLCOc % Pre of Predicted 70.9 % (test code = 5431) DL/VA Predicted (test code 4.52 = 5435) DL/VA LLN (test code = 3.2 5436) DL/VA % Pre of Predicted 74 % (test code = 5438) KCOc SB Predicted (test 4.52 code = 5533) KCOc SB LLN (test code = 3.2 5534) KCOc SB % Pre of Predicted 95.3 % (test code = 5536) VA SB Predicted (test code 4.24 = 5442) VA SB LLN (test code = 3.14 5443) VA SB % Pre of Predicted 71.7 % (test code = 5445) [facility] Bleeding Nteol2507-14-25 11:55:56Hm Interface, Radiology Results 07/25/2019 11:59 AM CSTPROCEDURE: [place] GI BLEEDING STUDYIND ICATION: GI bleed.TECHNIQUE: The patient's own red blood cells were labeled with 25mCi of Tc-99m pertechnetate. The cells were reinjected into the patient and dynamic planar images of the abdomen were acquired for 1 hour.FINDINGS: No abnormal tracer accumulation with subsequent migration.IMPRESSION:1. No scintigraphic evidence of active lower GI bleeding during the study.TRIHEALTH-[id number] MethodistOccult blood, mkhvh4554-70-07 18:57:02 Test Item Value Reference Interpretation Comments Range Occult blood, stool Positive for A Specimen (test code = Occult blood InformationSpec imen 2334-1) Source: StoolSp ecimen Site: Nonpreser bert Lab Interpretation Abnormal (test code = 93598-5) Richardson SabianistDigoxin ttirb5223-24-00 06:55:49 Test Item Value Reference Range Interpretation Comments Digoxin (test code = 0.7 ng/mL 0.8-2 L For cal id Digoxin 10022-8) results, at azam st 6 hours should el apse between time of last dose and collec tion of blood.Otherw ise, result may be f alse high.Therapeuti c Range:0.8 - 2.0 ng/mL Lab Interpretation (test Abnormal code = 83850-2) Isiah Crump gfajkxc7307-97-28 14:52:39 Test Item Value Reference Range Interpretation Comments Urine culture No growth Specimen isolate (test after 24 InformationSpe cimen code = 07356-8) hours Source: Urin eSpecimen Site: Clean cat ch Richardson Maryse carotid [id number] 15:44:00Interface, Radiology Results In - 07/13/2019 3:49 PM [facility] CHIEF Vascular Ultrasound Laboratory Carotid Artery Duplex [address] [place] [address] For quality control representative purposes, the categorization of the degree of the stenosis of this exam is based on criteria described in the IAC carotid stenosis grading white paper( www.intersocietal.org/Vascular) and Chriss Hess, Jojo Garner, et al. Carotid artery stenosis: schmidt-scale and Doppler US diagnosis--Society of Radiologists in Ultrasound Consensus Conference. Radiology. 2003 Nov; 229(2):340-6. Pat.Name: SUKI KOROMA Pat.ID: [id number] .Date: 07/13/2019 Refer.MD: SHAILESH HUTCHINSON MD Exam Time: 8:23:00 AM Study Type:Carotid Age: 2 1950,68Y Sex: FEMALE Sonogrphr: Ann Baldwin RVT Pat. Stat.:[facility] Vol: TN, CPT - 4: 51199 Echo Event ID:[id number] Order ID: [id number] Reason for Study:Known carotid artery disease. History of respiratoryfailure, COPD, CHF, CKD stage 3, morbid obesity, hypertension, A- Fib,WILFREDO.Procedures: Colorflow, Grayscale/2D, Pulsed wave DopplerRace: C -- SUMMARY: PH YSICAL ASSESSMENT Blood Pulses Carotid Pressure Carotid Temporal BruitRight Patient refused + + 0Left 135/59 + + 0CAROTID ARTERY SCANRIGHT: There is minimal intimal thickening in the common carotidartery. There is hard plaque noted in the carotid endarterectomy site.A carotid endarterectomy site is visualized from the mid commoncarotid artery to proximal internal carotid artery. There is focalheterogeneous echogenic plaque in the proximal internal carotid arterywith disturbed colorflow and elevated velocities. The distal site ofthe carotid endarterectomy (proximal internal carotid artery), theinternal carotid artery appears to be kinked with colorflowdisturbance and elevated velocities. LEFT: There is hard plaque in the common carotid artery. There ishard plaque in the bulb extending to the internal and external carotidarteries. Colorflow is n ormal.PRELIMINARY FINDINGS1. 80-99% stenosis of the right proximal internal carotid artery(distal site of right carotid endarterectomy).2. The distal site of the right carotid endarterectomy (proximalinternal carotid artery), the right internal carotid artery appears martin kinked with colorflow disturbance and elevated velocities. 3. Non-stenotic plaque in the left common carotid artery.4. 50-69% stenosis of the left bulb and internal carotid artery.5. <50% stenosis of the left external carotid artery.PHYSICIAN INTERPRETATION Bilateral carotid duplex examination demonstrated atheroscleroticplaques in the bulbs/ CCAs. 80-99% stenosis of the right proximal internal carotid artery (distalsite of right carotid endarterectomy). Flap vs Diaphragm. 50-69% stenosis of the left bulb and internal carotid artery.Both vertebral arteries are antegrade. Imaging correlationsrecommended. FINDINGS: Carotid Findings: Right Left Verteb.Flw Antegrade Antegrade Subclavian Biphasic Biphasic M EASUREMENTS: DOPPLERRight CCA Dist CCA Dist PSV 32.2 cm/s CCA Dist EDV 12.1 cm/sRight CCA Mid CCA Mid PSV 28.7 cm/s CCA Mid EDV 11.3 cm/sRight CCA Prox CCA Prox PSV 57.3 cm/s CCA Prox EDV 10.3 cm/sRight ECA Prox ECA Prox PSV 31.3 cm/s ECA Prox EDV 5.15 cm/sRight ICADist ICA Dist PSV 76.7 cm/s ICA Dist EDV 31.3 cm/sRight ICA Mid ICA Mid PSV 196 cm/s ICA Mid EDV 64.3 cm/[place] Prox ICA Prox PSV 516 cm/s ICA Prox EDV 213 cm/sRight Vertebral Vertebral PSV 64 cm/s Vertebral EDV 22 cm/sRight Subclavian Subclavian PSV 87.5 cm/s Subclavian EDV 0 cm/sLeft CCA Dist CCA Dist PSV 58.1 cm/s CCA Dist EDV 11.5 cm/sLeft CCA Mid CCA Mid PSV 84 cm/s CCA MidEDV 15.4 cm/sLeft CCA Prox CCA Prox PSV 59.6 cm/s CCA Prox EDV 13.4 cm/sLeft ECA Prox ECA Prox PSV 124 cm/s ECA Prox EDV 0 cm/sLeft ICA Dist ICA Dist PSV 64.9 cm/s ICA Dist EDV 25.9 cm/sLeft ICA Mid ICA Mid PSV 119 cm/s ICA MidEDV 20.3 cm/sLeft ICA Prox ICA Prox PSV 174 cm/s ICA Prox EDV 60.2 cm/sLeft Vertebral Vertebral PSV 46.5 cm/s Vertebral EDV 12.8 cm/sLeft Subclavian Subclavian PSV 132 cm/s Subclavian EDV 0 cm/[place]/CCA Ratio ICA/CCA PSV 18 LeftICA/CCA Ratio ICA/CCA PSV 2.07 Signed 07/13/2019 03:44 Eliana Miller MD, [facility] MethodistSpirometry pre & post w/ bronchodilator, diffusion, lung ccumlpg3158-91-10 14:51:49Bradyswapnil, Caren, BODY MAKER MACHINE SETTER 07/13/2019 2:57 PMPulmonary Function Testing not completed due to pt being onDroplet Isolation.Richardson MethodistCT Chest Wo Prryuegk5244-47-91 12:23:41Hm Interface, Radiology Results Incoming - 07/13/2019 12:26 PM CSTEXAMINATION:CT CHEST WO CONTRASTCLINICAL HISTORY:Pneumonia unresolved or complicatedTECHNIQUE:Multiple axial images of the chest were obtained without intravenous contrast. The lack of intravenous contrast reduces the sensitivity of detecting solid organ disease and evaluating vasculature. Sagittal and coronal computerized reformattedimages were also obtained.CT imaging was performed with iterative reconstruction techniques and/or automated exposure control to reduce radiation dose. COMPARISON:Chest CT 04/20/2019FINDINGS:1.There are new small bilateral pleural effusions.2.There is increasing atelectasis and/or consolidation in both lower lobes and inferior lingula.3.There is no thoracic lymphadenopathy.4.Heart size is normal. Amari cifications of the aortic and mitral valves and coronary arteries and aorta are again noted.5.No significant skeletal abnormality is seen.IMPRESSION:New bilateral small pleural effusions. Increasing infiltrates in the lower lobes and inferior lingula could be increasing compressive atelectasis, difficult to exclude pneumonia.TRIHEALTH-[id number] MethodistEchocardiogram complete w contrast and 3D if ppdcll5770-38-86 10:46:00Interface, Radiology Results In - 07/13/2019 10:48 AM [facility] CHIEF Echocardiography Report [id number] [place] [address] Pat.Name: SUKI KOROMA Pat.ID: [id number].Date: 07/13/2019 Refer.MD: SHAILESH HUTCHINSON MD Exam Time: 9:24:00 AM Study Type:Routine Echo Height: 59in Weight: 180lb BSA: 1.76 m2 Age: 2 1950,68Y Sex: FEMALE BP: 135/59 HR: 59 bpm Sonogrphr: Geovanny Haas. Stat.:Inpatient Room: [facility] Study Status:Final Echo Event ID:[id number] Order ID: [id number] Reason for Study:HF - Re-eval of known HF (systolic or diastolic) toguide therapyProcedures: 2D Echo, ColorflowDopplerRace: C SUMMARY: LV size is normal. LV EF is normal. Estimated EF is 65- 69%RV size is normal. RVsystolic function is normal.Mild to moderate aortic valve stenosis. Mild calcific mitral stenosis.Estimated PA systolic pressure is 30 mmHg, assuming a mean RAP of 5mmHg. ----FINDINGS: LV: LV size is normal. Concentric left ventricular remodeling. LV EF is normal. Overall wall motion is normal. Estimated EF is65-69%RV: RV size is normal. RV systolic function is normal.LA: LA volume is severely enlarged.RA: RA size is normal.AO: Aortic root diameter is normal.MERLIN: Trace anterior pericardial effusion.AV: Aortic valve not well seen. Mild aortic regurgitation. Mild to moderate aortic valve stenosis.MV: Mild to moderate thickening and calcification of mitral leaflets. Moderate mitral annular calcification. Thickened and/or calcified chordae. Calcified papillary muscle. Mild mitral regurgitation. Mild calcific mitral stenosis.PV: Pulmonic valve not well seen.TV: No structural TV abnormalities noted. Mild tricuspid regurgitation Rouse: LV relaxation is impaired. LV filling pressure is elevated.Other: Estimated PA systolic pressure is 30 mmHg, assuming a mean RAP of 5 mmHg. MEASUREMENTS: 2DParasternal Long [place] Ao Rtd 3 cm Index 1.7 cm/m2 LVPWd 1.3 cm IVSd 1.2 cm LA Ds 4 cm LVIDd 3.5 cm Index 2 cm/m2 RWT 0.72 LVIDs 1.8 cm LV Mass 145 g (87-129) LV%fs 50 % LVM Index 82 g/m2LA Sng Plane LA Area 31 cm2 (8.8-23.4) LA Vol 116 ml Index 66 ml/m2 LA LngAx 6.7 cm LVOT For Flow LVOT 1.8 cm LVOT Area 2.4 cm2 DOPPLERAV For Flow/DEWAYNE AV pkVel 263 cm/s (100-170) AV TVI 50 cm AV mnVel 154 cm/s AVpkAcRt 6832 cm/s2 AV pkPG28 mmHg AV DeRt 806 cm/s2 AV Mean G 12 mmHg AV Area 1.3 cm2 (3-5) AV ET 326 msec AV AC 64 msec (83-118) AV AC/ET 0.2 Aortic Valve AV DI 0.52 LVOT For Flow LVOT TVI 26 cm LVOT CI 2.7 l/m/m2 LVOT SV 63 ml LVOTpkPG 7.6 mmHg LVOTpkVel 138 cm/s LVOTmnPG 3.6 mmHg LVOT CO 4.7 l/min HR 76 bpm LVOT SVi 36 ml/m2 MV Forward Flow MV pkVel 200 cm/s MV TVI 46 cm MV pkPG 16 mmHg MV Area P1/2t 2 cm2 (4-6) MV Mean G 4.7 mmHg MV Dec T 369 msec Signed 07/13/2019 10:46 [place] MethodistHemoglobin [id number] 08:42:56 Test Item Value Reference Range Interpretation Comments Hemoglobin A1C (test 5.1 % 4-5.6 HbA1c c utoffs for code = 46930-1) diagnosing d iabetes:4.0% - 5.6% = normal 5.7% - 6.4% = increase d risk for diabetes (prediabetes)9> =6.5% = tymnzmxs0Rfjkp for glycemic contro l (ADA 2016)< 7.0% Ta rget for non cony lts with diabetes. More or less stringent targe ts may be appropriate for individual tanya ents. <7.5% Target for Children and ad olescents with type 1 daniel betes. Isiah MethodistLipid [id number] 03:41:40 Test Item Value Reference Interpretation Comments Range Cholesterol (test 127 mg/dL <200 code = 2093-3) Triglycerides (test 128 mg/dL <150 code = 2571-8) HDL cholesterol 48 mg/dL >40 (test code = 2085-9) LDL cholesterol 63 mg/dL <100 Result obtai kiah by direct (test code = 2089-1) LDL nelly surement Lipid panel SeeBelow Total Cholester ol (mg/dL) interpretation (test < 200 code = 09589-4) Desirable 200-239 Borderline -high >=240 Hi gh Triglyceri karla (mg/dL) <150 No rmal 150-199 Borderline-high 200-499 High >=500 Very high HDL Choles terol (mg/dL) <40 Low (male) < 40 Low (female) L DL Cholesterol (mg /dL) <100 Optimal 1 00-129 Near or above o ptimal 130-159 Borderline-high 160-189 High >=190 Very high Risk Cat ergories that modify LDL goals.Risk Catergories LDL goal (mg/dL )CHD and CHD risk equiva lent <100 (10-year risk >20%)Multiple ( 2+) risk factors < 130 (10-year risk = <20%)0-1 risk factors <160 (<10-ye ar risk) Defining levels of lipids in metabolic syndromeTriglyc erides > =150 mg/dLHDL Choles terol Men <40 mg/dL Women <40 mg/dL Non-HDL cholest sami is a second target f or therapy in personswith high triglycerides ( >=200 mg/dL) Isiah MethodistMicroalbumin, urine, bauehr6991-50-45 00:42:41 Test Item Value Reference Range Interpretation Comments Total volume, urine No volume mL (test code = 96337-6) Urine creatinine 45 mg/dL concentration (test code = 67179-6) Urine microalbumin <1.2 mg/dL concentration (test code = 15936-8) Urine SEE COMMENT 0-30 Unable to calcu late microalbumin/creatinine due to low analyte ratio (test code = concentra tion. 09571-0) Joyce MethodistProtein, urine, qdgqfn7102-06-22 00:38:35 Test Item Value Reference Range Interpretation Comments Protein, urine random (test code = <4 mg/dL 2888-6) Joyce MethodistSodium level, urine, pzjbrh2914-68-88 00:38:35 Test Item Value Reference Range Interpretation Comments Sodium, urine, random (test code = 105 mEq/L 71070-5) Richardson MethodistCreatinine level, urine, ehcypx1584-41-36 00:36:24 Test Item Value Reference Range Interpretation Comments Creatinine, urine, random (test code 46 mg/dL = 50541-8) Richardson MethodistChloride level, urine, gxpurw2764-12-71 00:26:43 Test Item Value Reference Range Interpretation Comments Chloride, urine, random (test code = 47 mEq/L 50754-4) Richardson MethodistUrinalysis screen and microscopy, with reflex to culture 2019-07-13 00:24:40 Test Item Value Reference Range Interpretation Comments Specimen site (test code = Clean catch 9070969) Color, UA (test code = 5778-6) Straw Appearance, UA (test code = Clear 5767-9) Specific gravity, UA (test code = 1.012 1.001-1.035 5811-5) pH, UA (test code = 5803-2) 8.0 5.0-8.5 Protein, UA (test code = 34039-1) Negative Negative Glucose, UA (test code = 14514-4) Negative Negative Ketones, UA (test code = 2514-8) Negative Negative Bilirubin, UA (test code = Negative Negative 5770-3) Blood, UA (test code = 5794-3) Negative Negative Nitrite, UA (test code = 5802-4) Negative Negative Urobilinogen, UA (test code = <2.0 <2.0 33389-4) Leukocyte esterase, UA (test code Trace Negative A = 5799-2) Epithelial cells, UA (test code = <1 /HPF 5787-7) WBC, UA (test code = 5821-4) 1 0- 4 /HPF RBC, UA (test code = 85086-0) None seen 0- 5 /HPF Bacteria, UA (test code = Few None seen 54773-2) Yeast, UA (test code = 26181-4) None seen Yeast with pseudohyphae, UA (test None seen code = 61309-5) Lab Interpretation (test code = Abnormal 62553-0) Richardson MethodistCHEM [id number] 11:28:0092Memorial HermannCHEM PANEL 2019-07-12 11:28:0032Mem[facility] HermannCHEM UUVTB8936-32-66 11:28:001.00[facility] HermannCHEM XJRVQ2780-32-42 11:28:33153Evctnmvc HermannCHEM WJFLA9268-51-66 11:28:003.5[facility] HermannCHEM OJFDE6334-85-82 11:28:0098Mem[facility] HermannCHEM AGYSL6834-36-41 11:28:0037Mem[facility] HermannCHEM OZYGF7442-42-48 11:28:008.8 [facility] HermannCHEM YVUOC3866-20-26 11:28:0057Mem[facility] HermannCHEM PANEL 2019-07-12 11:28:007.5[facility]orial NkmlziaQHCPCGXMTG2522-98-91 11:28:006.7Memorial VuttbwgGYTDUUOQJO6159-23-76 11:28:003.05Memorial SndsqlkVVDSKQQPZV6425-51-47 11:28:008.8Memorial VknlcqjNGISXDLDOO4689-35-90 11:28:0027.3[facility] Sunflower OMBYZBHRZD7031-83-79 11:28:0089.3Memorial DcrabgvMLFLOREREE2072-33-78 11:28:00 Test Item Value Reference Range Interpretation Comments MCH (test code = MCH) 28.9 pg 27.0-31.0 Memorial RkopvbbEYBNUFDEPQ2580-37-40 11:28:0032.3[facility] HermannHEMATOLOGY 2019-07-12 11:28:0015.4Memorial FbjfgicXYYUXXJGAE4753-08-99 11:28:60659Ysmjyxof HudjgebHJHSPZTLFZ6019-90-47 11:28:008.8[facility] HermannCHEM UVFAT6182-28-83 10:24:0092[facility] HermannCHEM DZRSN1190-11-81 10:24:0038[facility]annCHEM TBBRC3251-94-86 10:24:001.10[facility] HermannCHEM WOGLR0067-50-99 10:24:32024 [facility]ann[facility] IFPOQ9707-60-63 10:24:003.8[facility] HermannCHEM PANEL 2019-07-11 10:24:43214Amjpglan HermannCHEM KKHNT6877-06-17 10:24:0034[facility] HermannCHEM TFBLF5262-44-23 10:24:008.9[facility] HermannCHEM ZPQGY4421-02-02 10:24:0051[facility] HermannCHEM HWNAX4621-99-26 10:24:009.8[facility] KZOEYAHXDO4480-16-35 10:24:0074.5[facility] FxxmdtnNFTLDIYIWY8955-91-17 10:24:00 17.9[facility] EociqdrAZZSXAEQET9993-90-92 10:24:007.3[facility] HermannHEMATOLOGY 2019-07-11 10:24:000.2[facility] GqgjkmmDUEIZOWXMG0477-47-83 10:24:000.1[facility] SwohatsYZRPRAZVWT7471-97-42 10:24:004.9[facility] UugqxvwBLXQLHASKY5027-51-32 10:24:001.2[facility] TetscmfBWRCXEOCGR8622-58-26 10:24:000.5[facility] AYSJWBGNZW4625-57-22 10:24:006.5[facility] UjlfoajXWSAXRLRFT7591-17-00 10:24:00 2.99[facility] HoddsxrWTWLVZMSMM4311-82-60 10:24:008.6[facility] HermannHEMATOLOGY 2019-07-11 10:24:0026.5[facility] LypekohXSUAVLJXGE3989-91-64 10:24:0088.5[facility] ZgylqvjQNBGGZCNFR0415-45-01 10:24:00 Test Item Value Reference Range Interpretation Comments MCH (test code = MCH) 28.8 pg 27.0-31.0 [facility] HxfbqfhKMOCSKNSPA9319-71-04 10:24:0032.5[facility] HermannHEMATOLOGY 2019-07-11 10:24:0015.5[facility] KxlgdybECYUAEAYMG5921-65-81 10:24:45869Zsjtixig NytfgjyZDXMGQPZWP7671-15-47 10:24:009.3[facility] HermannANEMIA RPUFY6102-12-74 10:33:0033[facility] HermannANEMIA GUQWH4520-82-95 10:33:89504Umntqfvl HermannCHEM FPORU4423-23-30 10:33:11020Cnuxtqjw HermannCHEM SJSRA0701-50-50 10:33:0035 [facility]annCHEM VWOGG5943-31-18 10:33:001.30[facility] HermannCHEM PANEL 2019-07-09 10:33:99655Zolkvlyw HermannCHEM MQJZC5769-38-20 10:33:004.0[facility] HermannCHEM NMHMJ8391-56-36 10:33:09431Jiintnwj HermannCHEM OTOPE5046-19-88 10:33:0030[facility] HermannCHEM DLWLS4529-36-72 10:33:008.9[facility] HermannCHEM YCZQL2785-77-15 10:33:0011.0[facility] HermannCHEM VBDEA5234-99-93 10:33:0042 [facility] MphpwtbAWGMXLTQWT0017-34-01 10:33:008.8[facility] HermannHEMATOLOGY 2019-07-09 10:33:002.98[facility] FxzlrxmQXSTPYVEXX6330-25-23 10:33:008.4[facility] NyurshuIBWAECUZXV4525-30-41 10:33:0026.4[facility] FwddjoaSLJGLMISGN9338-52-35 10:33:0088.7[facility] ZuxyxmcZEMGZMVVAY8499-64-40 10:33:00 Test Item Value Reference Range Interpretation Comments MCH (test code = MCH) 28.3 pg 27.0-31.0 [facility] TroudtbEQPDTECQGX7389-91-82 10:33:0031.9[facility] HermannHEMATOLOGY 2019-07-09 10:33:0015.8[facility] JepoafxBPDCHFMQDI9638-51-29 10:33:56556Qcfwuuje FyphugdRNLBEIJGSE6765-50-95 10:33:009.0[facility] RcaeyyfLAUFBPGUCJ1917-59-59 10:33:0089.3[facility] BnfuwmsSHEVTJYUWF8435-34-75 10:33:006.4[facility] XHCGOYFTZA6076-92-39 10:33:004.3[facility] GsrjktzXRBDSBJVWP1776-14-79 10:33:000.0 [facility] HiyfvgvVOIRVUXDKP7824-48-40 10:33:000.0[facility] HermannHEMATOLOGY 2019-07-09 10:33:007.8[facility] DprnvxdSDJVBMLWZZ3266-03-37 10:33:000.6[facility] WskabndWVKWCYWKQY5218-29-61 10:33:000.4[facility] TrtogdsCOFGJMPTLL1696-71-42 10:33:000.0[facility] QbnbkrzPCSUIBFPJN5366-94-51 10:33:000.0[facility] Protein electrophoresis, makgi9017-26-11 09:54:00 Test Item Value Reference Range Interpretation Comments Albumin Fraction (test 3.0 g/dL 3.5-5.5 L code = 405) Alpha 1 Fraction (test 0.3 g/dL 0.2-0.4 code = 389) Alpha 2 Fraction (test 0.9 g/dL 0.5-0.9 code = 390) Beta Fraction (test code 0.8 g/dL 0.6-1.1 = 392) Gamma Globulin Fraction 0.5 g/dL 0.7-1.7 L (test code = 391) Interpretation (test Total protein and code = 2615) albumin decreased. Alpha globulin percentages increased. This suggests an acute phase response. Gamma globulins decreased. Pathologist: (test code Jody Nance MD = 9113) (electronic signature) Protein, Total (test 5.5 6.0- 8.3 gm/dL L code = 2660) Lab Interpretation (test Abnormal code = 48736-1) [facility]ESIS, AKDDJ1356-25-64 09:54:00 Test Item Value Reference Range Interpretation Comments ALBUMIN FRACTION 3.0 g/dL 3.5-5.5 L (BEAKER) (test code = 405) ALPHA 1 FRACTION 0.3 g/dL 0.2-0.4 (BEAKER) (test code = 389) ALPHA 2 FRACTION 0.9 g/dL 0.5-0.9 (BEAKER) (test code = 390) BETA FRACTION 0.8 g/dL 0.6-1.1 (BEAKER) (test code = 392) GAMMA GLOBULIN 0.5 g/dL 0.7-1.7 L FRACTION (BEAKER) (test code = 391) INTERPRETATION-119 Total protein and (BEAKER) (test code = albumin decreased. Alpha 2615) globulin percentages increased. This suggests an acute phase response. Gamma globulins decreased. KKFH-PAYWBLAOELU-819 Jody Nance MD (BEAKER) (test code = (electronic signature) 2617) PROTEIN TOTAL SERUM, 5.5 gm/dL 6.0-8.3 L SPEP (BEAKER) (test code = 0990) CARDIAC ZAYENHT0594-52-70 09:43:47620Axdrkyir EtglljjUMGMPHQCDT9179-89-41 09:43:0092.7[facility] NrvtbswJIDICDVYOJ2301-96-97 09:43:005.4[facility] NEJFTIQMNT4127-75-51 09:43:001.6[facility] OelehgkXPYYRXNKAO8516-95-41 09:43:000.3 [facility] YkbzjxdEZZZVWWMVW2386-76-35 09:43:008.5[facility] HermannHEMATOLOGY 2019-07-08 09:43:000.5[facility] XlpczdlERHQLSBMRX7230-27-35 09:43:000.1[facility] XueacjxZDTOWHMDDJ9143-08-68 09:43:000.0[facility] EkxlcgtDTQOFFKBWA3590-78-57 09:43:000.0[facility] SjrrhvpIUWLKTVEQT5875-63-02 09:43:000.0[facility] CARDIAC WQVTJVI8670-69-56 10:59:00<0.02[facility] HermannCHEM UZKKL9090-29-84 10:59:002.0[facility] HermannCHEM CQSTK2250-71-25 10:59:003.7[facility] KZMZTSDAFX3355-87-72 10:59:00Negative *NA*(07/07/19 4:59 AM)[facility] SHTGJWQESD8308-73-94 10:59:00Negative *NA*(07/07/19 4:59 AM)[facility] AGLXGOFTOA0875-74-91 10:59:00Negative *NA*(07/07/19 4:59 AM)[facility] OEAWSXUIGF8989-56-07 10:59:00Negative *NA*(07/07/19 4:59 AM)[facility] CARDIAC PPBMQCE2244-47-76 06:22:00<0.02[facility] HermannBACTERIAL - SEROLOGY 2019-07-06 23:21:00Negative (07/06/19 5:21 PM)[facility] HermannBACTERIAL - SEROLOGY 2019-07-06 23:21:00Urine *NA*(07/06/19 5:21 PM)[facility] HermannBACTERIAL - VHSQWKHA9990-14-26 23:21:00Negative (07/06/19 5:21 PM)[facility] HermannCARDIAC TIFNNBX6503-38-02 23:21:20248Dbeghbdo HermannCARDIAC FKWXVLK2877-65-70 23:21:00 4210[facility] HermannCARDIAC CJPXVFA0840-54-68 23:21:00<0.02[facility] CHEM SMVNM2870-75-85 23:21:003.8[facility] HermannCHEM ALJFN4640-35-34 23:21:001.9 [facility]annCHEM GVGHW3635-28-60 23:21:003.6[facility] HermannCHEM PANEL 2019-07-06 23:21:00 Test Item Value Reference Range Interpretation Comments A/G Ratio (test code = A/G Ratio) 0.8 1 0.7-1.6 [facility]annCHEM CNYLB1763-96-22 23:21:006.4[facility] HermannCHEM PANEL 2019-07-06 23:21:002.8[facility] HermannCHEM BUGZM2034-20-40 23:21:0022[facility] HermannCHEM CHUHO2902-53-81 23:21:0027[facility] HermannCHEM OFKRK5592-66-92 23:21:000.5[facility] HermannCHEM ZIATT6767-57-26 23:21:000.1[facility] HermannCHEM AIOBN3036-02-37 23:21:000.4[facility] HermannCHEM XWAOF2979-71-23 23:21:0064 [facility]annCHEM OZEYC9866-16-34 23:21:000.9[facility] HermannCHEM PANEL 2019-07-06 23:21:000.26[facility] OhjvppiOJVCLRUZJZ6656-97-45 23:21:00 Test Item Value Reference Range Interpretation Comments PT (test code = PT) 30.2 s 12.0-14.7 [facility] PcaftvmDGGJOIOWOE3439-36-42 23:21:00 Test Item Value Reference Range Interpretation Comments INR (test code = INR) 2.81 1 0.85-1.17 [facility] YpgvtwsOCLPTJGDRM8777-72-18 23:21:00 Test Item Value Reference Range Interpretation Comments PTT (test code = PTT) 40.9 s 22.9-35.8 [facility] BcbnpoyUNNHYAJGJV6270-84-75 23:21:00Normal (07/06/19 5:21 PM)[facility] AuxvruoMFPQQRPLDF0459-65-13 23:21:000.0[facility] DyzueytNAPFGBYHRS2021-58-98 23:21:000.0[facility] IojabbsCGFRKTWQZZ4617-77-28 23:21:001+ *ABN*(07/06/19 5:21 PM) [facility] WramppzHTKEHIXEMK8912-67-34 23:21:001+ (07/06/19 5:21 PM)[facility] MOLECULAR RITTQXKJPM1876-99-87 23:21:00Nasophrngl Swb *NA*(07/06/19 5:21 PM) [facility]annMOLECULAR LJHCYPJGRU5318-25-80 23:21:00Negative *NA*(07/06/19 5:21 PM)[facility] HermannMOLECULAR DAPLUXJOZM7991-23-78 23:21:00Negative *NA*(07/06/19 5:21 PM)[facility] HermannMOLECULAR HGFCKSMFLC1509-98-29 23:21:00Negative *NA*(07/06/19 5:21 PM)[facility]PAR[facility] EUYYNBE5567-29-76 23:21:001.05 [facility]PAR[facility] CWLPVZI5440-56-61 23:21:001.05[facility] CEFTAZIDIME:SUSC:PT:ISOLATE:ORDQN:ABG6341-59-33 23:01:00Serralars acevedo [facility] HospitalRAD, CHEST, 1 VIEW, NON RSGB0672-61-77 07:54:00Reason for exam:- >evaluate volume statusShould this be performed at the bedside?->YesFINAL REPORT INDICATION: evaluate volume status TECHNIQUE: Chest radiograph, single view, portable technique. FINDINGS / IMPRESSION: Interval extubation and removal of nasogastric tube since June 29, 2019. Prominent heart shadow without definite pulmonary venous congestion or edema. Left retrocardiac opacity may represent pleural fluid and related atelectasis. It is nonspecific. No pneumothorax. Signed: Dre Ying Verified Date/Time: 07/05/2019 07:54:47 Reading Location: [facility] C0[facility] Transitional Reading Room XR chest 1 view portable / fqqegrz0747-71-17 07:54:00 Interface, External Ris In - 07/05/2019 7:57 AM CSTFINAL REPORT INDICATION: evaluate volume status TECHNIQUE: Chest radiograph, single view, portable technique. FINDINGS / IMPRESSION: Interval extubation and removal of nasogastric tube since June 29, 2019. Prominent heart shadow without definite pulmonary venous congestion or edema. Left retrocardiac opacity may represent pleural fluid and related atelectasis. It is nonspecific. No pneumothorax. Signed: Dre Ying Verified Date/Time: 07/05/2019 07:54:47 Reading Location: [facility] B1 C013T Transitional Reading Room [facility] FarmPOC-Glucose bcuyg4907-69-47 07:09:00 Test Item Value Reference Range Interpretation Comments POC-Glucose Meter (test 115 mg/dL 70-110 H : TE STED AT [facility] code = 1538) [address] [facility] [place], [address]: Fire Extinguisher Repairer Inspector/Techni mckenna ID = [id number] for QUEEN PEREZ Lab Interpretation (test Abnormal code = 24118-1) [facility] [id number] 07:09:00 Test Item Value Reference Range Interpretation Comments POC-GLUCOSE METER 115 mg/dL 70-110 H : TESTED A T [facility] 6720 (BEAKER) (test code = [facility], 1538) [address]: Fire Extinguisher Repairer Inspector/Techni mckenna ID = [id number] for QUEEN WOODALL POCT-GLUCOSE [id number] 21:30:00 Test Item Value Reference Range Interpretation Comments POC-GLUCOSE METER 103 mg/dL 70-110 : TESTED A T [facility] 6720 (BEAKER) (test code = [facility], 1538) [address]: Fire Extinguisher Repairer Inspector/Techni mckenna ID = [id number] for NAZIA HADLEY POCT-GLUCOSE [id number] 16:39:00 Test Item Value Reference Range Interpretation Comments POC-GLUCOSE METER 93 mg/dL 70-110 : TESTED A T [facility] 6720 (BEAKER) (test code = [facility], 1538) [address]: Fire Extinguisher Repairer Inspector/Techni mckenna ID = [id number] for QUEEN MONTELONGO Blood Culture - Routine (Right Venipuncture)2019-07-04 15:00:00 Test Item Value Reference Range Interpretation Comments Result (test code = No growth in 5 days 6463-4) [facility] CenterBLOOD [id number] 15:00:00 Test Item Value Reference Range Interpretation Comments CULTURE (BEAKER) (test No growth in 5 days code = 1095) BLOOD IISHKOL1117-89-30 15:00:00 Test Item Value Reference Range Interpretation Comments CULTURE (BEAKER) (test No growth in 5 days code = 1095) Blood gas, ddomqf0174-71-19 12:06:00 Test Item Value Reference Range Interpretation Comments pH, Raul (test code = 2746-6) 7.44 7.32-7.42 H pCO2, Raul (test code = 755) 54 41- 51 mmHg H pO2, Raul (test code = 2705-2) 69 25- 40 mmHg H O2 Sat, Raul (test code = 2711-0) 94.2 % 40-70 H HCO3, Raul (test code = 12759-8) 36 mmol/L 21-29 H Base Excess, Raul (test code = 10.0 mmol/L -2-3 H 1927-3) Patient Temperature (test code = 37.0 C 8310-5) Lab Interpretation (test code = Abnormal 93393-2) [facility] CenterBL[facility] GAS, [id number] 12:06:00 Test Item Value Reference Range Interpretation Comments PH VENOUS (BEAKER) (test code = 7.44 7.32-7.42 H 701) PCO2 VENOUS (BEAKER) (test code = 54 mmHg 41-51 H 755) PO2 VENOUS (BEAKER) (test code = 69 mmHg 25-40 H 702) O2 SATURATION VENOUS (BEAKER) 94.2 % 40.0-70.0 H (test code = 703) HCO3 VENOUS (BEAKER) (test code = 36 mmol/L 21-29 H 705) BASE EXCESS VENOUS (BEAKER) (test 10.0 mmol/L -2.0-3.0 H code = 704) PATIENT TEMPERATURE (BEAKER) 37.0 C (test code = 1818) POCT-GLUCOSE [id number] 12:04:00 Test Item Value Reference Range Interpretation Comments POC-GLUCOSE METER 104 mg/dL 70-110 : TESTED A T [facility] 6720 (BEAKER) (test code = [place], 1538) [address]: Fire Extinguisher Repairer Inspector/Techni mckenna ID = [id number] for QUEEN WOODALL DLCO (single breath diffusion)2019-07-04 09:43:45Luis Goins, BODY MAKER MACHINE SETTER, PHOTOGRAPHIC RESTORER 07/04/2019 9:46 [facility] PFT CHARTING REPORT Infection Control/Hand Hygiene procedures followed throughout the encounter with patient: YesPatient Identification Method: Patient name verified on armband, and Medical record on armband, Is the order complete?: Yes Account ID#: [id number] Name: Suki Koroma Birthdate:1950 Age: 68 y.o. Sex: female Admission Date: 06/29/2019 Patient Status: Inpatient Reasons/Symptom for having the Test?: a history/complaint of a dyspnea Type of study/treatment ordered by physician: Lung volume, Single Breath DLCO, MIP's - Maximum Inspiratory Pressure and MEP's - Maximum Expiratory Pressure Lab Results Component Value Date HGB 8.2 (L) 07/03/2019 Ranges: Adult Male 13 - 16.8 g/dl Adult Female 12 - 15 g/dl 6 Minute Walk (read only) 07/04/2019 07/04/2019 07/04/2019 Pulse 86 85 - SpO2 94 92 98 Study Date: 07/04/2019 Study Time: 936 ASSESSMENT History & Physical Mode of Arrival: Ambulatory Pulse: 85 Resp: 18 SPO2: 93 % On 2 LPM/ FiO2 Pain Assessment Pain:None TESTING/THERAPEUTICS Medications ordered or required for procedure: N/A PT EDUCATION/INSTRUCTIONS Barriers to learning: No known barriers to learning. Learning need identified: Yes, Patient/Family/Guradian was informed of the ordered study by the physician Barriers to performing study or treatment: Patient has no known disability to perform the study or treatment. DISCHARGE The study was completed in accordance with the physician's order and patient released from the lab without adverse outcome.[facility] Pulmonary Funct Lab Mzdxrwrwxv1467-12-84 09:43:45Luis Goins, BODY MAKER MACHINE SETTER, PHOTOGRAPHIC RESTORER 07/04/2019 9:46 [facility] PFT CHARTING REPORT Infection Control/Hand Hygiene procedures followed throughout the encounter with patient: YesPatient Identification Method: Patient name verified on armband, and Medical record on armband, Is the order complete?: Yes Account ID#: [id number] Name: Suki Koroma Birthdate:1950 Age: 68 y.o. Sex: female Admission Date: 06/29/2019 Patient Status: Inpatient Reasons/Symptom for having the Test?: a history/complaint of a dyspnea Type of study/treatment ordered by physician: Lung volume, Single Breath DLCO, MIP's - Maximum Inspiratory Pressure and MEP's - Maximum Expiratory Pressure Lab Results Component Value Date HGB 8.2 (L) 07/03/2019 Ranges: Adult Male 13 - 16.8 g/dl Adult Female 12 - 15 g/dl 6 Minute Walk (read only) 07/04/2019 07/04/2019 07/04/2019 Pulse 86 85 - SpO2 94 92 98 Study Date: 07/04/2019 Study Time: 936 ASSESSMENT History & Physical Mode of Arrival: Ambulatory Pulse: 85 Resp: 18 SPO2: 93 % On 2 LPM/ FiO2 Pain Assessment Pain:None TESTING/THERAPEUTICS Medications ordered or required for procedure: N/A PT EDUCATION/INSTRUCTIONS Barriers to learning: No known barriers to learning. Learning need identified: Yes, Patient/Family/Guradian was informed of the ordered study by the physician Barriers to performing study or treatment: Patient has no known disability to perform the study or treatment. DISCHARGE The study was completed in accordance with the physician's order and patient released from the lab without adverse outcome.[facility]-WOS1325-25-23 09:43:45Luis Goins, BODY MAKER MACHINE SETTER, PHOTOGRAPHIC RESTORER 07/04/2019 9:46 [facility] PFT CHARTING REPORT Infection Control/Hand Hygiene procedures followed throughout the encounter with patient: YesPatient Identification Method: Patient name verified on armband, and Medical record on armband, Is the order complete?: Yes Account ID#: [id number] Name: Suki Koroma Birthdate:1950 Age: 68 y.o. Sex: female Admission Date: 06/29/2019 Patien t Status: Inpatient Reasons/Symptom for having the Test?: a history/complaint of a dyspnea Type of study/treatment ordered by physician: Lung volume, Single Breath DLCO, MIP's - Maximum Inspiratory Pressure and MEP's - Maximum Expiratory Pressure Lab Results Component Value Date HGB 8.2 (L) 07/03/2019 Ranges: Adult Male 13 - 16.8 g/dl Adult Female 12 - 15 g/dl 6 Minute Walk (read only) 07/04/2019 07/04/2019 07/04/2019 Pulse 86 85 - SpO2 94 92 98 Study Date: 07/04/2019 Study Time: 936 ASSESSMENT History & Physical Mode of Arrival: Ambulatory Pulse: 85 Resp: 18 SPO2: 93 % On 2 LPM/ FiO2 Pain Assessment Pain:None TE STING/THERAPEUTICS Medications ordered or required for procedure: N/A PT EDUCATION/INSTRUCTIONS Barriers to learning: No known barriers to learning. Learning need identified: Yes, Patient/Family/Guradian was informed of the ordered study by the physician Barriers to performing study or treatment: Tanya ent has no known disability to perform the study or treatment. DISCHARGE The study was completed in accordance with the physician's order and patient released from the lab without adverse outcome.[facility] CenterLung atquskn8606-16-52 09:43:45Luis Goins, BODY MAKER MACHINE SETTER, PHOTOGRAPHIC RESTORER 07/04/2019 9:46 [facility] PFT CHARTING REPORT Infection Control/Hand Hygiene procedures followed throughout the encounter with patient: YesPatient Identification Method: Patient name verified on armband, and Medical record on armband, Is the order complete?: Yes Account ID#: [id number] Name: Suki Koroma Birthdate:1950 Age: 68 y.o. Sex: female Admission Date: 06/29/2019 Patien t Status: Inpatient Reasons/Symptom for having the Test?: a history/complaint of a dyspnea Type of study/treatment ordered by physician: Lung volume, Single Breath DLCO, MIP's - Maximum Inspiratory Pressure and MEP's - Maximum Expiratory Pressure Lab Results Component Value Date HGB 8.2 (L) 07/03/2019 Ranges: Adult Male 13 - 16.8 g/dl Adult Female 12 - 15 g/dl 6 Minute Walk (read only) 07/04/2019 07/04/2019 07/04/2019 Pulse 86 85 - SpO2 94 92 98 Study Date: 07/04/2019 Study Time: 09 ASSESSMENT History & Physical Mode of Arrival: Ambulatory Pulse: 85 Resp: 18 SPO2: 93 % On 2 LPM/ FiO2 Pain Assessment Pain:None TE STING/THERAPEUTICS Medications ordered or required for procedure: N/A PT EDUCATION/INSTRUCTIONS Barriers to learning: No known barriers to learning. Learning need identified: Yes, Patient/Family/Guradian was informed of the ordered study by the physician Barriers to performing study or treatment: Tanya ent has no known disability to perform the study or treatment. DISCHARGE The study was completed in accordance with the physician's order and patient released from the lab without adverse outcome.[facility] Center[facility] [id number] 08:33:00 Test Item Value Reference Range Interpretation Comments POC-GLUCOSE METER 85 mg/dL 70-110 : TESTED A T [facility] 6720 (BEAKER) (test code = [place], 1538) [address]: Fire Extinguisher Repairer Inspector/Techni mckenna ID = [id number] for QUEEN MONTELONGO Prothrombin time/[id number] 05:41:00 Test Item Value Reference Range Interpretation Comments Protime (test code = 22.7 11.9- 14.2 H 5902-2) seconds INR (test code = 2.1 <=5.9 6301-6) JULIO (test code = JULIO) Effective 11/30/2018: PT Reference Range ChangeNew: 11.9-14.2 Previous: 11.7-14.7 RECOMMENDED COUMADIN/WARFARIN INR THERAPY RANGESSTANDARD DOSE: 2.0-3.0 Includes: PROPHYLAXIS for venous thrombosis, systemic embolization; TREATMENT for venous thrombosis and/or pulmonary embolus.HIGH RISK: Target INR is 2.5-3.5 for patients wiht mechanical heart valves. Lab Interpretation Abnormal (test code = 16400-9) [facility] CenterPROTHROMBIN TIME/[id number] 05:41:00 Test Item Value Reference Range Interpretation Comments PROTIME (BEAKER) (test code = 22.7 seconds 11.9-14.2 H 759) INR (BEAKER) (test code = 370) 2.1 <=5.9 Effective 11/30/2018: PT Reference Range ChangeNew: 11.9-14.2 Previous: 11.7- 14.7RECOMMENDED COUMADIN/WARFARIN INR THERAPY RANGESSTANDARD DOSE: 2.0-3.0 Includes: PROPHYLAXIS for venous thrombosis, systemic embolization; TREATMENT for venous thrombosis and/or pulmonary embolus.HIGH RISK: Target INR is2.5-3.5 for patients wiht mechanical heart valves.Basic metabolic [id number] 05:40:00 Test Item Value Reference Range Interpretation Comments Sodium (test code = 142 meq/L 519-685 5139-2) Potassium (test code = 3.5 meq/L 3.5-5.1 2823-3) Chloride (test code = 99 meq/L 98-107 2075-0) CO2 (test code = 35 meq/L 22-29 H 8-9) BUN (test code = 15 mg/dL 7-21 3094-0) Creatinine (test code = 0.99 mg/dL 0.57-1.25 2160-0) Glucose (test code = 100 mg/dL 70-105 2345-7) Calcium (test code = 8.8 mg/dL 8.4-10.2 60830-0) EGFR (test code = 55 mL/min/1.73 [place] [address]-0) NOT ACCURATE CREATININE CLEARANCE IN PREDICTING GLOMERULAR FILTRATION RATE . ESTIMATED GFR I S NOT APPLICABLE FOR DIALYSIS PATIEN TS. Lab Interpretation Abnormal (test code = 92183-1) [facility] CenterMagnesium2019-12-31 05:40:00 Test Item Value Reference Range Interpretation Comments Magnesium (test code = 43904-8) 1.7 mg/dL 1.6-2.6 Lab Interpretation (test code = Normal 94207-9) [facility]2019-12-31 05:40:00 Test Item Value Reference Range Interpretation Comments MAGNESIUM (BEAKER) (test code = 1.7 mg/dL 1.6-2.6 627) BASIC METABOLIC [id number] 05:40:00 Test Item Value Reference Range Interpretation Comments SODIUM (BEAKER) 142 meq/L 136-145 (test code = 381) POTASSIUM (BEAKER) 3.5 meq/L 3.5-5.1 (test code = 379) CHLORIDE (BEAKER) 99 meq/L 98-107 (test code = 382) CO2 (BEAKER) (test 35 meq/L 22-29 H code = 355) BLOOD UREA NITROGEN 15 mg/dL 7-21 (BEAKER) (test code = 354) CREATININE (BEAKER) 0.99 mg/dL 0.57-1.25 (test code = 358) GLUCOSE RANDOM 100 mg/dL 70-105 (BEAKER) (test code = 652) CALCIUM (BEAKER) 8.8 mg/dL 8.4-10.2 (test code = 697) EGFR (BEAKER) (test 55 mL/min/1.73 ESTIMA ALDEN GFR IS code = 1092) sq m NOT ACCURATE CREATININE CLEARANCE IN PREDICTING GLOMERULAR FILTRATION RATE . ESTIMATED GFR I S NOT APPLICABLE FOR DIALYSIS PATIEN TS. U/S, RENAL WITH [id number] 03:59:00Reason for exam:->flash edemaFINAL REPORT Renal ultrasound dated 07/04/2019 CLINICAL HISTORY: Renal dysfunction and flash edema COMPARISON: None Comment: Real-time transabdominal renal ultrasound was performed. Right kidney measures 8.9 x 4.0 x 3.9 cm. Left kidney measures 11.3 x 5.4 x 5.1 cm. Right renal cortex measures 0.8 cm. Left renal cortex measures 1.4 cm. Renal parenchymal echogenicity: Normal No hydronephrosis, nephrolithiasis or solid mass is seen. No cyst is identified on either kidney. Color and spectral Doppler ultrasound demonstrates a patent main renal artery and vein bilaterally. There are normal resistive indices throughout both kidneys. The bladder is decompressed. Impression: The right kidney is relatively small, a nonspecific appearance. The ultrasound appearance of thekidneys is otherwise unremarkable. There is no Doppler evidence of significant renovascular disease.Signed: Clay Vargas MDReport Verified Date/Time: 07/04/2019 03:59:06 US Renal with [id number] 03:59:00Interface, External Ris In - 07/04/2019 4:01 AM CSTFINAL REPORT Renal ultrasound dated 07/04/2019 CLINICAL HISTORY: Renal dysfunction and flash edema COMPARISON: None Comment: Real-time transabdominal renal ultrasound was performed. Right kidney measures 8.9 x 4.0 x 3.9 cm.Left kidney measures 11.3 x 5.4 x 5.1 cm. Right renal cortex measures 0.8 cm. Left renal cortex measures 1.4 cm. Renal parenchymal echogenicity: Normal No hydronephrosis, nephrolithiasis or solid mass is seen. No cyst is identified on either kidney. Color and spectral Doppler ultrasound demonstrates a patent main renal artery and vein bilaterally. There are normal resistive indices throughout both kidneys. The bladder is decompressed. Impression: The right kidney is relatively small, a nonspecific appearance. The ultrasound appearance of the kidneys is otherwise unremarkable. There is no Doppler evidence of significant renovascular disease. Signed: Clay Vargas MDReport Verified Date/Time: 07/04/2019 03:59:06 [facility] FarmPOCT-GLUCOSE [id number] 20:56:00 Test Item Value Reference Range Interpretation Comments POC-GLUCOSE METER 106 mg/dL 70-110 : [facility]: [facility] (test code = TESTED AT [facility] 6720 1538) [facility], [id number]: Fire Extinguisher Repairer Inspector/Techni mckenna ID = [id number] for KASSIE LAURA POCT-GLUCOSE [id number] 17:43:00 Test Item Value Reference Range Interpretation Comments POC-GLUCOSE METER 82 mg/dL 70-110 : TESTED A T [facility] 6720 ([facility]) (test code = [facility], 1538) [address]: Fire Extinguisher Repairer Inspector/Techni mckenna ID = [id number] for CHU , LAJADA POCT-GLUCOSE [id number] 15:15:00 Test Item Value Reference Range Interpretation Comments POC-GLUCOSE METER 92 mg/dL 70-110 : TESTED A T [facility] ([facility]) (test code = [facility], 1538) [address]: Fire Extinguisher Repairer Inspector/Techni mckenna ID = [id number] for CHU , LAJADA POCT-GLUCOSE [id number] 14:56:00 Test Item Value Reference Range Interpretation Comments POC-GLUCOSE METER 81 mg/dL 70-110 : TESTED A T [facility] 67[facility] ([facility]) (test code = [facility], 1538) [id number]: Fire Extinguisher Repairer Inspector/Techni mckenna ID = [id number] for CHU , LAJADA [place], ESOPHAGUS, PHARNYX AND/OR [id number] 14:02:00Reason for exam:- >recurrent PNA ? aspirationFINAL REPORT Barium esophagogram Clinical History: recurrent PNA ? Aspiration Discussion: Effervescent crystals, thick barium, and thin barium are given to the patient to drink,without difficulties. The esophageal motility, mucosa, caliber, and gastroesophageal junction are normal. Moderate gastroesophageal reflux is noted. Fluoro time: 1.4 minutes Number of images obtained: 14 Impression: Moderate gastroesophageal reflux Signed: Chasity Cantu Verified Date/Time: 07/03/2019 14:02:37 Reading Location: [address] Ortho Consult Reading Room [place] esophagus pharnyx and / or [id number] 14:02:00Interface, External Ris In - 07/03/2019 2:42 PM CSTFINAL REPORT Barium esoph agogram Clinical History: recurrent PNA ? Aspiration Discussion: Effervescent crystals, thick barium, and thin barium are given to the patient to drink, without difficulties. The esophageal motility, mucosa, caliber, and gastroesophageal junction are normal. Moderate gastroesophageal reflux is noted. Fluoro time: 1.4 minutes Number of images obtained: 14 Impression: Moderate gastroesophageal reflux Signed: Chasity Cantu Verified Date/Time: 07/03/2019 14:02:37 Reading Location: [address] [facility], WITH [id number] 14:01:00Reason for exam:->Neuromuscular weaknessFINAL REPORT Sniff Test Indication: diaphragm paralysis Comparison: none. Findings: Diaphragm movement during inspiration is observed under fluoroscopy. There is symmetric diap hragmatic movement during inspiration. No evidence of paralysis. Fluoro time: 0.5 minute Number of images obtained: 12 Impression: No evidence of diaphragm paralysis. Signed: Chasity Cantu Verified Date/Time: 07/03/2019 14:01:20 Reading Location: [address] Ortho Consult Reading Room [place] sniff [id number] 14:01:00Interface, External Ris In - 07/03/2019 2:42 PM CSTFINAL REPORT Sniff Test Indication: diaphragm paralysis Comparison: none. Findings: Diaphragm movement during inspiration isobserved under fluoroscopy. There is symmetric diaphragmatic movement during inspiration. No evidence of paralysis. Fluoro time: 0.5 minute Number of images obtained: 12 Impression: No evidence of diaphragm paralysis. Signed: Chasity Cantu Verified Date/Time: 07/03/2019 14:01:20 Reading Location: [facility] B1 C013X Ortho Consult [facility]OPH, SWALLOW FUNCTION, WITH CINE OR [id number] 10:58:00Reason for exam:->Assess for aspirationFINAL REPORT Modified barium swallow exam with speech pathology service CLINICAL HISTORY: Assess for aspiration IMPRESSION: Please see the speech pathology service report for details. Barium contrast of multiple consistencies is given to the patient to swallow. Fluoroscopic observation is performed during swallowing. No aspiration or penetration was observed with all consistencies administered. Fluoro time: 2.2 min Number of images: 1 Signed: Chasity Cantu Verified Date/Time: 07/03/2019 10:58:24 Reading Location: [address] [place] esoph swallow funct with cine [id number] 10:58:00Interface, External Ris In - 07/03/2019 2:39 PM CSTFINAL REPORT Modified barium swallow exam with speech pathology service CLINICAL HISTORY: Assess for aspiration IMPRESSION: Please see the speech pathology service report for details. Barium contrast of multiple consistencies is given to the patient to swallow. Fluoroscopic observation is performed during swallowing. No aspiration or penetration was observed with all consistencies administered. Fluoro time: 2.2 min Number of images: 1 Signed: Chasity Cantu Verified Date/Time: 07/03/2019 10:58:24 Reading Location: [address] [facility] [id number] 04:27:00 Test Item Value Reference Range Interpretation Comments MAGNESIUM (BEAKER) (test code = 1.7 mg/dL 1.6-2.6 627) BASIC METABOLIC [id number] 04:27:00 Test Item Value Reference Range Interpretation Comments SODIUM (BEAKER) 142 meq/L 136-145 (test code = 381) POTASSIUM (BEAKER) 4.0 meq/L 3.5-5.1 (test code = 379) CHLORIDE (BEAKER) 102 meq/L 98-107 (test code = 382) CO2 (BEAKER) (test 34 meq/L 22-29 H code = 355) BLOOD UREA NITROGEN 18 mg/dL 7-21 (BEAKER) (test code = 354) CREATININE (BEAKER) 1.08 mg/dL 0.57-1.25 (test code = 358) GLUCOSE RANDOM 91 mg/dL 70-105 (BEAKER) (test code = 652) CALCIUM (BEAKER) 8.8 mg/dL 8.4-10.2 (test code = 697) EGFR (BEAKER) (test 50 mL/min/1.73 ESTIMA ALDEN GFR IS code = 1092) sq m NOT ACCURATE CREATININE CLEARANCE IN PREDICTING GLOMERULAR FILTRATION RATE . ESTIMATED GFR I S NOT APPLICABLE FOR DIALYSIS PATIEN TS. PROTHROMBIN [id number] 04:18:00 Test Item Value Reference Range Interpretation Comments PROTIME (BEAKER) (test code = 23.3 seconds 11.9-14.2 H 759) INR (BEAKER) (test code = 370) 2.1 <=5.9 Effective 11/30/2018: PT Reference Range ChangeNew: 11.9-14.2 Previous: 11.7- 14.7RECOMMENDED COUMADIN/WARFARIN INR THERAPY RANGESSTANDARD DOSE: 2.0-3.0 Includes: PROPHYLAXIS for venous thrombosis, systemic embolization; TREATMENT for venous thrombosis and/or pulmonary embolus.HIGH RISK: Target INR is2.5-3.5 for patients wiht mechanical heart valves.CBC (Hemogram only)2019-07-03 04:07:00 Test Item Value Reference Range Interpretation Comments WBC (test code = 6690-2) 6.0 3.5- 10.5 K/L RBC (test code = 789-8) 2.85 3.93- 5.22 M/L L MCHC (test code = 786-4) 30.0 32.2- 35.5 GM/DL L Hematocrit (test code = 4544-3) 27.3 % 34.1-44.9 L MCV (test code = 787-2) 95.8 fL 79.4-94.8 H MCH (test code = 785-6) 28.8 pg 25.6-32.2 RDW (test code = 788-0) 14.5 % 11.7-14.4 H Platelets (test code = 777-3) 242 150- 450 K/CU MM MPV (test code = 68669-7) 10.5 fL 9.4-12.3 nRBC (test code = 413) 0 0- 0 /100 WBC Lab Interpretation (test code = Abnormal 44682-8) [facility] (HEMOGRAM ONLY)2019-07-03 04:07:00 Test Item Value Reference Range Interpretation Comments WHITE BLOOD CELL COUNT (BEAKER) 6.0 K/ L 3.5-10.5 (test code = 775) RED BLOOD CELL COUNT (BEAKER) 2.85 M/ L 3.93-5.22 L (test code = 761) HEMOGLOBIN (BEAKER) (test code = 8.2 GM/DL 11.2-15.7 L 410) HEMATOCRIT (BEAKER) (test code = 27.3 % 34.1-44.9 L 411) MEAN CORPUSCULAR VOLUME (BEAKER) 95.8 fL 79.4-94.8 H (test code = 753) MEAN CORPUSCULAR HEMOGLOBIN 28.8 pg 25.6-32.2 (BEAKER) (test code = 751) MEAN CORPUSCULAR HEMOGLOBIN CONC 30.0 GM/DL 32.2-35.5 L (BEAKER) (test code = 752) RED CELL DISTRIBUTION WIDTH 14.5 % 11.7-14.4 H (BEAKER) (test code = 412) PLATELET COUNT (BEAKER) (test 242 K/CU MM 150-450 code = 756) MEAN PLATELET VOLUME (BEAKER) 10.5 fL 9.4-12.3 (test code = 754) NUCLEATED RED BLOOD CELLS 0 /100 WBC 0-0 (BEAKER) (test code = 413) POCT-GLUCOSE [id number] 21:31:00 Test Item Value Reference Range Interpretation Comments POC-GLUCOSE METER 125 mg/dL 70-110 H : TESTED A T [facility] 6720 (BEAKER) (test code = [place], 1538) [address]: Fire Extinguisher Repairer Inspector/Techni mckenna ID = [id number] for LARS HERRERA POCT-GLUCOSE [id number] 18:29:00 Test Item Value Reference Range Interpretation Comments POC-GLUCOSE METER 81 mg/dL 70-110 : TESTED A T [facility] 6720 (BEAKER) (test code = [facility], 1538) [address]: Fire Extinguisher Repairer Inspector/Techni mckenna ID = [id number] for TAYL OR-BREE, SHIKARA POCT-GLUCOSE [id number] 12:25:00 Test Item Value Reference Range Interpretation Comments POC-GLUCOSE METER 91 mg/dL 70-110 : TESTED A T [facility] 6720 (BEAKER) (test code = [facility], 1538) [address]: Fire Extinguisher Repairer Inspector/Techni mckenna ID = [id number] for TAYL OR-BREE, SHIKARA MRSA [id number] 11:40:00 Test Item Value Reference Range Interpretation Comments Result (test code = 6463-4) No [facility] [id number] 11:40:00 Test Item Value Reference Range Interpretation Comments Result (test code = 1+ Normal respiratory 6463-4) pedro present Gram Stain Result <1+ gram positive cocci (test code = 1123) in clusters [facility] [id number] 11:40:00 Test Item Value Reference Range Interpretation Comments CULTURE (BEAKER) (test code No MRSA isolated = 1095) SPUTUM CULTURE + GRAM [id number] 11:40:00 Test Item Value Reference Range Interpretation Comments CULTURE (BEAKER) 1+ Normal respiratory (test code = 1095) pedro present GRAM STAIN RESULT 4+ White blood cells (BEAKER) (test code = seen 1123) GRAM STAIN RESULT 0-5 epithelial cells (BEAKER) (test code = 80837) GRAM STAIN RESULT <1+ gram positive cocci (BEAKER) (test code = in clusters 52604) POCT-GLUCOSE [id number] 09:00:00 Test Item Value Reference Range Interpretation Comments POC-GLUCOSE METER 83 mg/dL 70-110 : TESTED A T [facility] 6720 (BEAKER) (test code = [facility], 1538) [address]: Fire Extinguisher Repairer Inspector/Techni mckenna ID = [id number] for TAYL OR-BREE, SHIKARA BASIC METABOLIC [id number] 05:51:00 Test Item Value Reference Range Interpretation Comments SODIUM (BEAKER) (test 140 meq/L 136-145 code = 381) POTASSIUM (BEAKER) 3.8 meq/L 3.5-5.1 (test code = 379) CHLORIDE (BEAKER) 102 meq/L 98-107 (test code = 382) CO2 (BEAKER) (test 30 meq/L 22-29 H code = 355) BLOOD UREA NITROGEN 23 mg/dL 7-21 H (BEAKER) (test code = 354) CREATININE (BEAKER) 1.06 mg/dL 0.57-1.25 (test code = 358) GLUCOSE RANDOM 84 mg/dL 70-105 (BEAKER) (test code = 652) CALCIUM (BEAKER) 8.7 mg/dL 8.4-10.2 (test code = 697) EGFR (BEAKER) (test INSUFFIC IENT CLINICAL code = 1092) DATA TO CALCULA TE ESTIMATED GFR. [id number] 05:50:00 Test Item Value Reference Range Interpretation Comments MAGNESIUM (BEAKER) (test code = 1.9 mg/dL 1.6-2.6 627) PROTHROMBIN [id number] 05:25:00 Test Item Value Reference Range Interpretation Comments PROTIME (BEAKER) (test code = 24.6 seconds 11.9-14.2 H 759) INR (BEAKER) (test code = 370) 2.3 <=5.9 Effective 11/30/2018: PT Reference Range ChangeNew: 11.9-14.2 Previous: 11.7- 14.7RECOMMENDED COUMADIN/WARFARIN INR THERAPY RANGESSTANDARD DOSE: 2.0-3.0 Includes: PROPHYLAXIS for venous thrombosis, systemic embolization; TREATMENT for venous thrombosis and/or pulmonary embolus.HIGH RISK: Target INR is2.5-3.5 for patients wiht mechanical heart valves.CBC (HEMOGRAM ONLY)2019-07-02 05:20:00 Test Item Value Reference Range Interpretation Comments WHITE BLOOD CELL COUNT (BEAKER) 9.3 K/ L 3.5-10.5 (test code = 775) RED BLOOD CELL COUNT (BEAKER) 2.87 M/ L 3.93-5.22 L (test code = 761) HEMOGLOBIN (BEAKER) (test code = 8.2 GM/DL 11.2-15.7 L 410) HEMATOCRIT (BEAKER) (test code = 27.8 % 34.1-44.9 L 411) MEAN CORPUSCULAR VOLUME (BEAKER) 96.9 fL 79.4-94.8 H (test code = 753) MEAN CORPUSCULAR HEMOGLOBIN 28.6 pg 25.6-32.2 (BEAKER) (test code = 751) MEAN CORPUSCULAR HEMOGLOBIN CONC 29.5 GM/DL 32.2-35.5 L (BEAKER) (test code = 752) RED CELL DISTRIBUTION WIDTH 15.0 % 11.7-14.4 H (BEAKER) (test code = 412) PLATELET COUNT (BEAKER) (test 269 K/CU MM 150-450 code = 756) MEAN PLATELET VOLUME (BEAKER) 10.8 fL 9.4-12.3 (test code = 754) NUCLEATED RED BLOOD CELLS 0 /100 WBC 0-0 (BEAKER) (test code = 413) POCT-GLUCOSE [id number] 21:20:00 Test Item Value Reference Range Interpretation Comments POC-GLUCOSE METER 129 mg/dL 70-110 H : TESTED A T [facility] 6720 (BEAKER) (test code = [facility], 153) [address]: Fire Extinguisher Repairer Inspector/Techni mckenna ID = [id number] for DONALD BANERJEE POCT-GLUCOSE [id number] 17:38:00 Test Item Value Reference Range Interpretation Comments POC-GLUCOSE METER 98 mg/dL 70-110 : TESTED A T [facility] 6720 (BEAKER) (test code = [facility], 153) [address]: Fire Extinguisher Repairer Inspector/Techni mckenna ID = [id number] for MARITZA GARCIA, BHAVYA POCT-GLUCOSE [id number] 11:56:00 Test Item Value Reference Range Interpretation Comments POC-GLUCOSE METER 103 mg/dL 70-110 : TESTED A T [facility] 6720 (BEAKER) (test code = [facility], 153) [address]: Fire Extinguisher Repairer Inspector/Techni mckenna ID = [id number] for SUMMER LLIS, BHAVYA POCT-GLUCOSE [id number] 08:38:00 Test Item Value Reference Range Interpretation Comments POC-GLUCOSE METER 114 mg/dL 70-110 H : TESTED A T [facility] (BEAKER) (test code = [place], 1538) [address]: Fire Extinguisher Repairer Inspector/Techni mckenna ID = [id number] for BHAVYA WARD BASIC METABOLIC [id number] 06:43:00 Test Item Value Reference Range Interpretation Comments SODIUM (BEAKER) (test 139 meq/L 136-145 code = 381) POTASSIUM (BEAKER) 3.7 meq/L 3.5-5.1 (test code = 379) CHLORIDE (BEAKER) 102 meq/L 98-107 (test code = 382) CO2 (BEAKER) (test 27 meq/L 22-29 code = 355) BLOOD UREA NITROGEN 25 mg/dL 7-21 H (BEAKER) (test code = 354) CREATININE (BEAKER) 1.30 mg/dL 0.57-1.25 H (test code = 358) GLUCOSE RANDOM 114 mg/dL 70-105 H (BEAKER) (test code = 652) CALCIUM (BEAKER) 9.1 mg/dL 8.4-10.2 (test code = 697) EGFR (BEAKER) (test INSUFFIC IENT CLINICAL code = 1092) DATA TO CALCULA TE ESTIMATED GFR. Hepatic function [id number] 06:36:00 Test Item Value Reference Range Interpretation Comments Protein, Total (test code = 2885-2) 6.2 6.0- 8.3 gm/dL Albumin (test code = 12058-4) 3.6 g/dL 3.5-5 Total Bilirubin (test code = 0.3 mg/dL 0.2-1.2 1974-2) Bilirubin, Direct (test code = 0.2 mg/dL 0.1-0.5 1967-7) Alkaline Phosphatase (test code = 45 U/L 40-150 6768-6) AST (test code = 1920-8) 10 U/L 5-34 ALT (test code = 1742-6) 8 U/L 6-55 Lab Interpretation (test code = Normal 06331-1) [id number] 06:36:00 Test Item Value Reference Range Interpretation Comments MAGNESIUM (BEAKER) (test code = 2.3 mg/dL 1.6-2.6 627) HEPATIC FUNCTION [id number] 06:36:00 Test Item Value Reference Range Interpretation Comments TOTAL PROTEIN (BEAKER) (test code = 6.2 gm/dL 6.0-8.3 770) ALBUMIN (BEAKER) (test code = 1145) 3.6 g/dL 3.5-5.0 BILIRUBIN TOTAL (BEAKER) (test code 0.3 mg/dL 0.2-1.2 = 377) BILIRUBIN DIRECT (BEAKER) (test 0.2 mg/dL 0.1-0.5 code = 706) ALKALINE PHOSPHATASE (BEAKER) (test 45 U/L 40-150 code = 346) AST (SGOT) (BEAKER) (test code = 10 U/L 5-34 353) ALT (SGPT) (BEAKER) (test code = 8 U/L 6-55 347) PROTHROMBIN [id number] 05:35:00 Test Item Value Reference Range Interpretation Comments PROTIME (BEAKER) (test code = 28.4 seconds 11.9-14.2 H 759) INR (BEAKER) (test code = 370) 2.8 <=5.9 Effective 11/30/2018: PT Reference Range ChangeNew: 11.9-14.2 Previous: 11.7- 14.7RECOMMENDED COUMADIN/WARFARIN INR THERAPY RANGESSTANDARD DOSE: 2.0-3.0 Includes: PROPHYLAXIS for venous thrombosis, systemic embolization; TREATMENT for venous thrombosis and/or pulmonary embolus.HIGH RISK: Target INR is2.5-3.5 for patients wiht mechanical heart valves.CBC with platelet count + automated [id number] 05:30:00 Test Item Value Reference Range Interpretation Comments WBC (test code = 6690-2) 12.4 3.5- 10.5 K/L H RBC (test code = 789-8) 2.99 3.93- 5.22 M/L L MCHC (test code = 786-4) 29.2 32.2- 35.5 GM/DL L Hematocrit (test code = 4544-3) 28.8 % 34.1-44.9 L MCV (test code = 787-2) 96.3 fL 79.4-94.8 H MCH (test code = 785-6) 28.1 pg 25.6-32.2 RDW (test code = 788-0) 14.9 % 11.7-14.4 H Platelets (test code = 777-3) 283 150- 450 K/CU MM MPV (test code = 14259-4) 11.0 fL 9.4-12.3 nRBC (test code = 413) 0 0- 0 /100 WBC % Neutros (test code = 429) 87 % % Lymphs (test code = 430) 6 % % Monos (test code = 431) 6 % % Eos (test code = 432) 0 % % Baso (test code = 437) 0 % # Neutros (test code = 670) 10.83 1.56- 6.13 K/L H # Lymphs (test code = 414) 0.75 1.18- 3.74 K/L L # Monos (test code = 415) 0.80 0.24- 0.36 K/L H # Eos (test code = 416) 0.00 0.04- 0.36 K/L L # Baso (test code = 417) 0.00 0.01- 0.08 K/L L Immature Granulocytes-Relative 0 % 0-1 (test code = 2801) Lab Interpretation (test code = Abnormal 32209-7) [facility] (HEMOGRAM ONLY)2019-07-01 05:30:00 Test Item Value Reference Range Interpretation Comments WHITE BLOOD CELL COUNT (BEAKER) 12.4 K/ L 3.5-10.5 H (test code = 775) RED BLOOD CELL COUNT (BEAKER) 2.99 M/ L 3.93-5.22 L (test code = 761) HEMOGLOBIN (BEAKER) (test code = 8.4 GM/DL 11.2-15.7 L 410) HEMATOCRIT (BEAKER) (test code = 28.8 % 34.1-44.9 L 411) MEAN CORPUSCULAR VOLUME (BEAKER) 96.3 fL 79.4-94.8 H (test code = 753) MEAN CORPUSCULAR HEMOGLOBIN 28.1 pg 25.6-32.2 (BEAKER) (test code = 751) MEAN CORPUSCULAR HEMOGLOBIN CONC 29.2 GM/DL 32.2-35.5 L (BEAKER) (test code = 752) RED CELL DISTRIBUTION WIDTH 14.9 % 11.7-14.4 H (BEAKER) (test code = 412) PLATELET COUNT (BEAKER) (test 283 K/CU MM 150-450 code = 756) MEAN PLATELET VOLUME (BEAKER) 11.0 fL 9.4-12.3 (test code = 754) NUCLEATED RED BLOOD CELLS 0 /100 WBC 0-0 (BEAKER) (test code = 413) CBC W/PLT COUNT & AUTO [id number] 05:30:00 Test Item Value Reference Range Interpretation Comments WHITE BLOOD CELL COUNT (BEAKER) 12.4 K/ L 3.5-10.5 H (test code = 775) RED BLOOD CELL COUNT (BEAKER) 2.99 M/ L 3.93-5.22 L (test code = 761) HEMOGLOBIN (BEAKER) (test code = 8.4 GM/DL 11.2-15.7 L 410) HEMATOCRIT (BEAKER) (test code = 28.8 % 34.1-44.9 L 411) MEAN CORPUSCULAR VOLUME (BEAKER) 96.3 fL 79.4-94.8 H (test code = 753) MEAN CORPUSCULAR HEMOGLOBIN 28.1 pg 25.6-32.2 (BEAKER) (test code = 751) MEAN CORPUSCULAR HEMOGLOBIN CONC 29.2 GM/DL 32.2-35.5 L (BEAKER) (test code = 752) RED CELL DISTRIBUTION WIDTH 14.9 % 11.7-14.4 H (BEAKER) (test code = 412) PLATELET COUNT (BEAKER) (test 283 K/CU MM 150-450 code = 756) MEAN PLATELET VOLUME (BEAKER) 11.0 fL 9.4-12.3 (test code = 754) NUCLEATED RED BLOOD CELLS 0 /100 WBC 0-0 (BEAKER) (test code = 413) NEUTROPHILS RELATIVE PERCENT 87 % (BEAKER) (test code = 429) LYMPHOCYTES RELATIVE PERCENT 6 % (BEAKER) (test code = 430) MONOCYTES RELATIVE PERCENT 6 % (BEAKER) (test code = 431) EOSINOPHILS RELATIVE PERCENT 0 % (BEAKER) (test code = 432) BASOPHILS RELATIVE PERCENT 0 % (BEAKER) (test code = 437) NEUTROPHILS ABSOLUTE COUNT 10.83 K/ L 1.56-6.13 H (BEAKER) (test code = 670) LYMPHOCYTES ABSOLUTE COUNT 0.75 K/ L 1.18-3.74 L (BEAKER) (test code = 414) MONOCYTES ABSOLUTE COUNT (BEAKER) 0.80 K/ L 0.24-0.36 H (test code = 415) EOSINOPHILS ABSOLUTE COUNT 0.00 K/ L 0.04-0.36 L (BEAKER) (test code = 416) BASOPHILS ABSOLUTE COUNT (BEAKER) 0.00 K/ L 0.01-0.08 L (test code = 417) IMMATURE GRANULOCYTES-RELATIVE 0 % 0-1 PERCENT (BEAKER) (test code = 2801) POCT-GLUCOSE [id number] 21:11:00 Test Item Value Reference Range Interpretation Comments POC-GLUCOSE METER 161 mg/dL 70-110 H : TESTED A T [facility] 6720 (BEAKER) (test code = [facility], [facility]8) [address]: Fire Extinguisher Repairer Inspector/Techni mckenna ID = [id number] for KELLE BE, SAUDATU POCT-GLUCOSE [id number] 18:57:00 Test Item Value Reference Range Interpretation Comments POC-GLUCOSE METER 143 mg/dL 70-110 H : TESTED A T [facility] 6720 (BEAKER) (test code = [facility], 1538) [address]: Fire Extinguisher Repairer Inspector/Techni mckenna ID = [id number] for LUIS FLETCHER POCT-GLUCOSE [id number] 11:50:00 Test Item Value Reference Range Interpretation Comments POC-GLUCOSE METER 169 mg/dL 70-110 H : TESTED A T [facility] 6720 (BEAKER) (test code = [facility], 1538) [address]: Fire Extinguisher Repairer Inspector/Techni mckenna ID = [id number] for SAMEER Mullins, LUIS [id number] 08:36:00 Test Item Value Reference Range Interpretation Comments MAGNESIUM (BEAKER) 1.8 mg/dL 1.6-2.6 Specimen slightly (test code = 627) hemolyzed POCT-GLUCOSE [id number] 06:07:00 Test Item Value Reference Range Interpretation Comments POC-GLUCOSE METER 142 mg/dL 70-110 H : TESTED A T [facility] 6720 (BEAKER) (test code = [facility], 1538) 913[address]: Fire Extinguisher Repairer Inspector/Techni mckenna ID = [id number] for IRAIS CHESTER BASIC METABOLIC [id number] 04:02:00 Test Item Value Reference Range Interpretation Comments SODIUM (BEAKER) (test 139 meq/L 136-145 code = 381) POTASSIUM (BEAKER) 3.7 meq/L 3.5-5.1 Specimen slightly (test code = 379) hemolyzed CHLORIDE (BEAKER) 102 meq/L 98-107 (test code = 382) CO2 (BEAKER) (test 25 meq/L 22-29 code = 355) BLOOD UREA NITROGEN 18 mg/dL 7-21 (BEAKER) (test code = 354) CREATININE (BEAKER) 1.50 mg/dL 0.57-1.25 H Specimen slightly (test code = 358) hemolyzed GLUCOSE RANDOM 133 mg/dL 70-105 H (BEAKER) (test code = 652) CALCIUM (BEAKER) 8.9 mg/dL 8.4-10.2 (test code = 697) EGFR (BEAKER) (test INSUFFIC IENT CLINICAL code = 1092) DATA TO CALCULA TE ESTIMATED GFR. HEPATIC FUNCTION [id number] 03:27:00 Test Item Value Reference Range Interpretation Comments TOTAL PROTEIN (BEAKER) 6.2 gm/dL 6.0-8.3 Speci men slightly (test code = 770) hemolyzed ALBUMIN (BEAKER) (test 3.4 g/dL 3.5-5.0 L Speci men slightly code = 1145) hemolyzed BILIRUBIN TOTAL 0.4 mg/dL 0.2-1.2 Specimen sli ghtly (BEAKER) (test code = hemoly zed 377) BILIRUBIN DIRECT 0.2 mg/dL 0.1-0.5 Specimen sl ightly (BEAKER) (test code = hemoly zed 706) ALKALINE PHOSPHATASE 50 U/L 40-150 (BEAKER) (test code = 346) AST (SGOT) (BEAKER) 16 U/L 5-34 Specimen slightly (test code = 353) hemolyzed ALT (SGPT) (BEAKER) 10 U/L 6-55 Specimen slightly (test code = 347) hemolyzed Blood gas, [id number] 03:19:00 Test Item Value Reference Range Interpretation Comments pH, Arterial (test code = 2744-1) 7.41 7.35-7.45 pCO2, Arterial (test code = 43 35- 45 mmHg 2018-8) pO2, Arterial (test code = 2703-7) 50 80- 90 mmHg L O2 Sat, Arterial (test code = 86.4 % 96-97 L 2708-6) HCO3, Arterial (test code = 26 mmol/L 21-29 1960-4) Base Excess, Arterial (test code = 1.3 mmol/L -2-3 1925-7) Patient Temperature (test code = 36.7 C 8310-5) FIO2 (test code = 1819) 40 % Lab Interpretation (test code = Abnormal 21653-7) [id number] 03:19:00 Test Item Value Reference Range Interpretation Comments PH ARTERIAL (BEAKER) (test code = 7.41 7.35-7.45 383) PCO2 ARTERIAL (BEAKER) (test code 43 mmHg 35-45 = 384) PO2 ARTERIAL (BEAKER) (test code = 50 mmHg 80-90 L 385) O2 SATURATION ARTERIAL (BEAKER) 86.4 % 96.0-97.0 L (test code = 386) HCO3 ARTERIAL (BEAKER) (test code 26 mmol/L -29 = 388) BASE EXCESS ARTERIAL (BEAKER) 1.3 mmol/L -2.0-3.0 (test code = 387) PATIENT TEMPERATURE (BEAKER) (test 36.7 C code = 1818) FIO2 (BEAKER) (test code = 1819) 40.0 % PROTHROMBIN [id number] 03:19:00 Test Item Value Reference Range Interpretation Comments PROTIME (BEAKER) (test code = 24.2 seconds 11.9-14.2 H 759) INR (BEAKER) (test code = 370) 2.3 <=5.9 Effective 11/30/2018: PT Reference Range ChangeNew: 11.9-14.2 Previous: 11.7- 14.7RECOMMENDED COUMADIN/WARFARIN INR THERAPY RANGESSTANDARD DOSE: 2.0-3.0 Includes: PROPHYLAXIS for venous thrombosis, systemic embolization; TREATMENT for venous thrombosis and/or pulmonary embolus.HIGH RISK: Target INR is2.5-3.5 for patients wiht mechanical heart valves.CBC W/PLT COUNT & AUTO [id number] 03:03:00 Test Item Value Reference Range Interpretation Comments WHITE BLOOD CELL COUNT (BEAKER) 12.6 K/ L 3.5-10.5 H (test code = 775) RED BLOOD CELL COUNT (BEAKER) 2.95 M/ L 3.93-5.22 L (test code = 761) HEMOGLOBIN (BEAKER) (test code = 8.5 GM/DL 11.2-15.7 L 410) HEMATOCRIT (BEAKER) (test code = 27.7 % 34.1-44.9 L 411) MEAN CORPUSCULAR VOLUME (BEAKER) 93.9 fL 79.4-94.8 (test code = 753) MEAN CORPUSCULAR HEMOGLOBIN 28.8 pg 25.6-32.2 (BEAKER) (test code = 751) MEAN CORPUSCULAR HEMOGLOBIN CONC 30.7 GM/DL 32.2-35.5 L (BEAKER) (test code = 752) RED CELL DISTRIBUTION WIDTH 14.6 % 11.7-14.4 H (BEAKER) (test code = 412) PLATELET COUNT (BEAKER) (test 235 K/CU MM 150-450 code = 756) MEAN PLATELET VOLUME (BEAKER) 10.6 fL 9.4-12.3 (test code = 754) NUCLEATED RED BLOOD CELLS 0 /100 WBC 0-0 (BEAKER) (test code = 413) NEUTROPHILS RELATIVE PERCENT 91 % (BEAKER) (test code = 429) LYMPHOCYTES RELATIVE PERCENT 5 % (BEAKER) (test code = 430) MONOCYTES RELATIVE PERCENT 3 % (BEAKER) (test code = 431) EOSINOPHILS RELATIVE PERCENT 0 % (BEAKER) (test code = 432) BASOPHILS RELATIVE PERCENT 0 % (BEAKER) (test code = 437) NEUTROPHILS ABSOLUTE COUNT 11.47 K/ L 1.56-6.13 H (BEAKER) (test code = 670) LYMPHOCYTES ABSOLUTE COUNT 0.64 K/ L 1.18-3.74 L (BEAKER) (test code = 414) MONOCYTES ABSOLUTE COUNT (BEAKER) 0.38 K/ L 0.24-0.36 H (test code = 415) EOSINOPHILS ABSOLUTE COUNT 0.00 K/ L 0.04-0.36 L (BEAKER) (test code = 416) BASOPHILS ABSOLUTE COUNT (BEAKER) 0.01 K/ L 0.01-0.08 (test code = 417) IMMATURE GRANULOCYTES-RELATIVE 1 % 0-1 PERCENT (BEAKER) (test code = 2801) POCT-GLUCOSE [id number] 01:04:00 Test Item Value Reference Range Interpretation Comments POC-GLUCOSE METER 122 mg/dL 70-110 H : TESTED A T [facility] 6720 (BEAKER) (test code = [place], 1538) [address]: Fire Extinguisher Repairer Inspector/Techni mckenna ID = [id number] for IRAIS CHESTER Troponin [id number] 21:44:00 Test Item Value Reference Range Interpretation Comments Troponin I (test code = 0.02 ng/mL 0-0.03 15952-9) JULIO (test code = JULIO) Troponin I (TnI) levels must be interpreted in the context of the presenting symptoms and the clinical findings. Elevated TnI levels indicate myocardial damage, but are not specific for ischemic heart disease. Elevated TnI levels are seen in patients with other cardiac conditions (including myocarditis and congestive heart failure), and slight TnI elevations occur in patients with other conditions, including sepsis, renal failure, acidosis, acute neurological disease, and persistent tachyarrhythmia. Lab Interpretation (test Normal code = 42559-2) [facility] [id number] 21:44:00 Test Item Value Reference Range Interpretation Comments TROPONIN I (BEAKER) (test code = 0.02 ng/mL 0.00-0.03 397) Troponin I (TnI) levels must be interpreted in the context of the presenting symptoms and the clinical findings. Elevated TnI levels indicate myocardial damage, but are not specific for ischemic heart disease. Elevated TnI levels are seen in patients with other cardiac conditions (including myocarditis and congestive heart failure), and slight TnI elevations occur in patients with other conditions, including sepsis, renal failure, acidosis, acute neurological disease, and persistent tachyarrhythmia.BLOOD GAS, [id number] 18:51:00 Test Item Value Reference Range Interpretation Comments PH ARTERIAL (BEAKER) (test code = 7.44 7.35-7.45 383) PCO2 ARTERIAL (BEAKER) (test code 47 mmHg 35-45 H = 384) PO2 ARTERIAL (BEAKER) (test code = 53 mmHg 80-90 L 385) O2 SATURATION ARTERIAL (BEAKER) 88.4 % 96.0-97.0 L (test code = 386) HCO3 ARTERIAL (BEAKER) (test code 31 mmol/L 21-29 H = 388) BASE EXCESS ARTERIAL (BEAKER) 5.8 mmol/L -2.0-3.0 H (test code = 387) PATIENT TEMPERATURE (BEAKER) (test 37.0 C code = 1818) FIO2 (BEAKER) (test code = 1819) 40.0 % POCT-GLUCOSE [id number] 18:32:00 Test Item Value Reference Range Interpretation Comments POC-GLUCOSE METER 137 mg/dL 70-110 H : TESTED A T [facility] 6720 (BEAKER) (test code = [place], 1538) [address]: Fire Extinguisher Repairer Inspector/Techni mckenna ID = [id number] for Higinio Valerio 2D Echo W/Doppler(CW/PW/Color)2019-06-29 16:41:15Ejection FractionSLEH ECHO HEARTLAB MKCKESSON CPACSInterface, External Ris In - 06/29/2019 4:41 PM C STTransthoracic Echocardiography Report (TTE) Demographics Patient Name SUKI KOROMA Date of Study 06/29/2019 Gender Female Visit Number [id number] Race Unknown Room Number 7214 Number Date of 1950 Referring Physician Melanie Cm Age 68 year(s) B2B Outside Sales Representative Abdiel Bruno [facility] Book Agent Liane Beach, Interpreting Randy Todd [facility] Physician Procedure Type of Study TTE procedure:2DECHO W DOPPLER(CW/PW/COLOR) (STAT) Indications:Shortness of breath.Clinical HistoryHGB 9.0HCT 29.5 %Respiratory failureHeart FailureCOPDContrast Medium: Definity.Height: 59 inches Weight: 84.37 kg (186 lbs) BSA: 1.79 m^2 BMI: 37.57 kg/m^2HR: 75 bpm BP: 102/54 mmHg Summary LV [...] 11-15mmHg . A trivial pericardial effusion is present . Mild aortic stenosis. mmHg/Mean PG 14 mmHg. Previous Study No prior studies available for comparison. Signature Findings Technical Quality: Technically difficult exam. Left Ventricle LV endocardium is adequately visualized with IV ultrasound enhancing agent. The left ventricle is chamber size (by vol index) is normal (female - LVED vol - 29-61ml/m2). No evidence of LV hypertrophy. All segments are hyperdynamic. Global LVsystolic function hyperdynamic . LVEF by Wallace's method of disk assessment is increased (>70%) . Increased (cardiac index 3.5-4.0 L/min/m2) cardiac output state at rest is noted. LV diastolic function is indeterminate. Left Atrium LA size is severely enlarged (>48 ml/m2) . Right Ventricle The right ventricular chamber size and systolic function are within normal limits. Right Atrium RA size is normal. Aortic Valve Mild aortic regurgitation. Mild AoV cusp thickening. AoV cusp mobility is mildly decreased . Mild aortic stenosis. mmHg/Mean PG 14 mmHg. Mitral Valve Mild mitral annular calcification. Mild MV leaflet calcification. MV gradients are mildly increased in part due to anemia and mitral annular calcification . Mean PG 6.37 mmHg at a HR of 81 bpm. Tricuspid Valve TV structure is normal. Mild tricuspid regurgitation. Estimated peak systolic PA pressure is 40-45 mmHg . Pulmonic Valve PV is not well visualized; function appears normal by Doppler visualized. Aorta Aortic root size (SInus of Valsalva diameter) is normal . Pericardium A trivial pericardial effusion is present . IVC/SVC/PA/PV/Pleural The estimated [...] cm Right Atrium RA Vol. (Sngl Plane): 45.2ml Aorta Ao Root S of Cal.: 2.77 cm Doppler/Quantitative Measurements Mitral Valve Mean [...] TR Velocity: 2.75 m/s TR Gradient: 30.22 mmHgCHI [facility] CenterFerritin 2019-06-29 15:56:00 Test Item Value Reference Range Interpretation Comments Ferritin (test code = 2276-4) 79 ng/mL 5-275 Lab Interpretation (test code = Normal 39401-3) [facility] CenterVitamin B12 and [id number] 15:56:00 Test Item Value Reference Range Interpretation Comments Vitamin B12 (test code = 2132-9) 814 pg/mL 213-816 Folate (test code = 2284-8) 8.9 ng/mL >=7.0 Lab Interpretation (test code = Normal 40125-9) [facility] CenterFERRITIN2019-12-26 15:56:00 Test Item Value Reference Range Interpretation Comments FERRITIN (BEAKER) (test code = 361) 79 ng/mL 5-275 VITAMIN B12 AND [id number] 15:56:00 Test Item Value Reference Range Interpretation Comments VITAMIN B12 (BEAKER) (test code = 814 pg/mL 213-816 774) FOLATE (BEAKER) (test code = 362) 8.9 ng/mL >=7.0 Osmolality, [id number] 15:54:00 Test Item Value Reference Range Interpretation Comments Osmolality, Ur (test code = 2695-5) 462 40-1,400 mOsm/kg Lab Interpretation (test code = Normal 80173-1) [facility] CenterOSMOLALITY, [id number] 15:54:00 Test Item Value Reference Range Interpretation Comments OSMOLALITY URINE (BEAKER) (test 462 mOsm/kg 40-1,400 code = 614) Sodium, random [id number] 15:51:00 Test Item Value Reference Range Interpretation Comments Sodium Urine (test <20 meq/L code = 2955-3) JULIO (test code = JULIO) Reference Range: No Normals [facility] CenterODIUM, RANDOM [id number] 15:51:00 Test Item Value Reference Range Interpretation Comments SODIUM URINE (BEAKER) (test code = < meq/L 243) Reference Range: No NormalsPotassium, random [id number] 15:45:00 Test Item Value Reference Range Interpretation Comments Potassium Urine (test 83.2 meq/L code = 2828-2) JULIO (test code = JULIO) Reference Range: No Normals [facility] CenterProtein, random [id number] 15:45:00 Test Item Value Reference Range Interpretation Comments Protein, Urine (test code = 2888-6) 18 mg/dL 0-14 H Lab Interpretation (test code = Abnormal 97605-2) [facility] CenterPOTASSIUM, RANDOM [id number] 15:45:00 Test Item Value Reference Range Interpretation Comments POTASSIUM URINE (BEAKER) (test 83.2 meq/L code = 195) Reference Range: No NormalsPROTEIN, RANDOM [id number] 15:45:00 Test Item Value Reference Range Interpretation Comments PROTEIN, URINE (BEAKER) (test code = 18 mg/dL 0-14 H 1569) TROPONIN [id number] 15:27:00 Test Item Value Reference Range Interpretation Comments TROPONIN I (BEAKER) (test code = 0.06 ng/mL 0.00-0.03 H 397) Troponin I (TnI) levels must be interpreted in the context of the presenting symptoms and the clinical findings. Elevated TnI levels indicate myocardial damage, but are not specific for ischemic heart disease. Elevated TnI levels are seen in patients with other cardiac conditions (including myocarditis and congestive heart failure), and slight TnI elevations occur in patients with other conditions, including sepsis, renal failure, acidosis, acute neurological disease, and persistent tachyarrhythmia.Iron, TIBC, % sat. (without ferritin) 2019-06-29 15:22:00 Test Item Value Reference Range Interpretation Comments Iron (test code = 2498-4) 35.0 ug/dL 40-160 L TIBC (test code = 2500-7) 345 ug/dL 250-450 Iron % Saturation (test code = 10 % 20-55 L 2502-3) Lab Interpretation (test code = Abnormal 34248-7) [facility] CenterIRON, TIBC, % SAT. (WITHOUT FERRITIN)2019-06-29 15:22:00 Test Item Value Reference Range Interpretation Comments IRON (BEAKER) (test code = 547) 35.0 ug/dL 40.0-160.0 L TOTAL IRON BINDING CAPACITY 345 ug/dL 250-450 (BEAKER) (test code = 769) IRON % SATURATION (2) (BEAKER) 10 % 20-55 L (test code = 2590) [id number] 14:56:00 Test Item Value Reference Range Interpretation Comments Ammonia (test code = 69 18- 72 mol/L Speci men moderately 55560-2) hemolyzed Lab Interpretation (test Normal code = 73904-8) [facility] CenterAMMONIA2019-12-26 14:56:00 Test Item Value Reference Range Interpretation Comments AMMONIA (BEAKER) 69 mol/L 18-72 Specimen mo derately (test code = 348) hemolyzed CBC W/PLT COUNT & AUTO [id number] 14:55:00 Test Item Value Reference Range Interpretation Comments WHITE BLOOD CELL COUNT (BEAKER) 8.7 K/ L 3.5-10.5 (test code = 775) RED BLOOD CELL COUNT (BEAKER) 3.12 M/ L 3.93-5.22 L (test code = 761) HEMOGLOBIN (BEAKER) (test code = 9.0 GM/DL 11.2-15.7 L 410) HEMATOCRIT (BEAKER) (test code = 29.5 % 34.1-44.9 L 411) MEAN CORPUSCULAR VOLUME (BEAKER) 94.6 fL 79.4-94.8 (test code = 753) MEAN CORPUSCULAR HEMOGLOBIN 28.8 pg 25.6-32.2 (BEAKER) (test code = 751) MEAN CORPUSCULAR HEMOGLOBIN CONC 30.5 GM/DL 32.2-35.5 L (BEAKER) (test code = 752) RED CELL DISTRIBUTION WIDTH 14.6 % 11.7-14.4 H (BEAKER) (test code = 412) PLATELET COUNT (BEAKER) (test 256 K/CU MM 150-450 code = 756) MEAN PLATELET VOLUME (BEAKER) 11.2 fL 9.4-12.3 (test code = 754) NUCLEATED RED BLOOD CELLS 0 /100 WBC 0-0 (BEAKER) (test code = 413) NEUTROPHILS RELATIVE PERCENT 91 % (BEAKER) (test code = 429) LYMPHOCYTES RELATIVE PERCENT 7 % (BEAKER) (test code = 430) MONOCYTES RELATIVE PERCENT 1 % (BEAKER) (test code = 431) EOSINOPHILS RELATIVE PERCENT 0 % (BEAKER) (test code = 432) BASOPHILS RELATIVE PERCENT 0 % (BEAKER) (test code = 437) NEUTROPHILS ABSOLUTE COUNT 7.93 K/ L 1.56-6.13 H (BEAKER) (test code = 670) LYMPHOCYTES ABSOLUTE COUNT 0.60 K/ L 1.18-3.74 L (BEAKER) (test code = 414) MONOCYTES ABSOLUTE COUNT (BEAKER) 0.12 K/ L 0.24-0.36 L (test code = 415) EOSINOPHILS ABSOLUTE COUNT 0.00 K/ L 0.04-0.36 L (BEAKER) (test code = 416) BASOPHILS ABSOLUTE COUNT (BEAKER) 0.01 K/ L 0.01-0.08 (test code = 417) IMMATURE GRANULOCYTES-RELATIVE 1 % 0-1 PERCENT (BEAKER) (test code = 2801) CT, CHEST, WITHOUT [id number] 14:36:00Anesthesia:->NoneFINAL REPORT TECHNIQUE: CT scan of the chest WITHOUT intravenous contrast. Dose modulation, iterative reconstruction, and/or weight-based adjustment of the mA/kV was utilized to reduce the radiation dose to as low as reasonably achievable. INDICATION: Pneumonia. COMPARISON: None. FINDINGS: ABSENCE OF INTRAVENOUS CONTRAST DECREASES SENSITIVITY FOR DETECTION OF FOCAL LESIONS AND VASCULAR PATHOLOGY. LINES/TUBES: Endotracheal tube with tip below the clavicles and above the shamir. NG tube with tip in the gastric body. LUNGS AND AIRWAYS: Punctate right upper lobe calcified granuloma. Patchy opacities in the dependent portions of both lungs. There are both lungs, there are inters titial prominence and groundglass opacity. Some more rounded groundglass opacities measure up to 1 cm on coronal image 43. PLEURA: Small bilateral pleural effusions. HEART AND MEDIASTINUM: The visualized thyroid gland is normal. No significant mediastinal, hilar, or axillary lymphadenopathy. The left atrium is enlarged. Marked calcification of the ascending thoracic aorta and aortic arch. Moderate calcification of the lower portion of the descending thoracic aorta. Marked calcification of the coronary arteries. Calcification of the aortic annulus. SOFT TISSUES AND BONES: Moderate degenerative disc changes of the visualized spine with several posterior disc osteophyte complexes of the partially visualized lower cervical spine. There is likely anterior bony fusion of the T5, T6, and T7 vertebral bodies. UPPER ABDOMEN: Unremarkable. IMPRESSION: 1.The patchy opacities in the dependent portions of both lungs are concerning for aspiration. Pneumonia is in the differential. 2.Additional bilateral groundglass and interstitial opacities are concerning for pulmonary edema. 3.Since some of these groundglass opacities are slightly rounded, a follow-up CT of the chest is recommended in 3-6 months to document resolution and exclude neoplasm. Signed: Darron Menendez MDReport Verified Date/Time: 06/29/2019 14:36:33 Reading Location: [facility] Diagnostic Imaging Reading Room - [place] [address] CT chest without IV [id number] 14:36:00Interface, External Ris In - 06/29/2019 2:38 PM CSTFINAL REPORT TECHNIQUE: CT scan of the chest WITHOUT intravenous contrast. Dose modulation, iterative reconstruction, and/or weight-based adjustment of the mA/kV was utilized to reduce the radiation dose to as low as reasonablyachievable. INDICATION: Pneumonia. COMPARISON: None. FINDINGS: ABSENCE OF INTRAVENOUS CONTRAST DECR EASES SENSITIVITY FOR DETECTION OF FOCAL LESIONS AND VASCULAR PATHOLOGY. LINES/TUBES: Endotracheal tube with tip below the clavicles and above the shamir. NG tube with tip in the gastric body. LUNGS AND AIRWAYS: Punctate right upper lobe calcified granuloma. Patchy opacities in the dependent portions of both lungs. There are both lungs, there are interstitial prominence and groundglass opacity. Some more rounded groundglass opacities measure up to 1 cm on coronal image 43. PLEURA: Small bilateral pleural effusions. HEART AND MEDIASTINUM: The visualized thyroid gland is normal. No significant mediastinal, hilar, or axillary lymphadenopathy. The left atrium is enlarged. Marked calcification of the ascending thoracic aorta and aortic arch. Moderate calcification of the lower portion of the descending thoracic aorta. Marked calcification of the coronary arteries. Calcification of the aortic annulus.SOFT TISSUES AND BONES: Moderate degenerative disc changes of the visualized spine with several posterior disc osteophyte complexes of the partially visualized lower cervical spine. There is likely anterior bony fusion of the T5, T6, and T7 vertebral bodies. UPPER ABDOMEN: Unremarkable. IMPRESSION: 1.The patchy opacities in the dependent portions of both lungs are concerning for aspiration. Pneumonia is in the differential. 2.Additional bilateral groundglass and interstitial opacities are concerning for pulmonary edema. 3.Since some of these groundglass opacities are slightly rounded, a follow-up CT of the chest is recommended in 3-6 months to document resolution and exclude neoplasm. Signed: Darron Menendez Verified Date/Time: 06/29/2019 14:36:33 Reading Location: [facility] Diagnostic Imaging Reading Room - [place] [address] [facility] [id number] 13:31:00FINAL REPORT CT, BRAIN, WITHOUT CONTRAST INDICATION: Stroke, follow uph/o hemorrhagic storke TECHNIQUE: Noncontrast axial imaging was obtained from the vertex to the skull base. Axial images were reconstructed using a bone algorithm. DOSE REDUCTION: Dose modulation, iterative reconstruction, and/or weight-based adjustment of the mA/kV was utilized to reduce the radiation dose to as low as reasonably achievable. COMPARISON: None. FINDINGS: Cerebral parenchyma: Diffuse parenchymal volume loss. No recent infarct or hemorrhage.Midline structures: Normally positioned.Cerebellum and brainstem: Commensurate volume loss.Ventricles: Normal volume.Extra-axial spaces: Unremarkable. Calvarium and skull base: Intact.Paranasal sinuses and mastoid air cells: Visible chambers are clear.Orbi geovani contents: Included portions unremarkable. Additional findings: None. IMPRESSION: Chronic involutional changes without acute intracranial abnormality. If there is persistent clinical concern for intracranial pathology, MR examination is recommended for further characterization. Signed: August hernandez JR, Robert MDReport Verified Date/Time: 06/29/2019 13:31:59 Reading Location: [facility] C[address] NeuroReading [address] brain without IV [id number] 13:31:00Interface, External Ris In - 06/29/2019 1:[address], BRAIN, WITHOUT CONTRAST INDICATION: Stroke, follow uph/o hemorrhagic storke TECHNIQUE: Noncontrast axial imaging was obtained from the vertex to the skull base. Axial images were reconstructed using a bone algor ithm. DOSE REDUCTION: Dose modulation, iterative reconstruction, and/or weight- based adjustment of the mA/kV was utilized to reduce the radiation dose to as low as reasonably achievable. COMPARISON: None. FINDINGS: Cerebral parenchyma: Diffuse parenchymal volume loss. No recent infarct or hemorrhage.Midline structures: Normally positioned.Cerebellum and brainstem: Commensurate volume loss.Ventricles:Normal volume.Extra-axial spaces: Unremarkable. Calvarium and skull base: Intact.Paranasal sinuses and mastoid air cells: Visible chambers are clear.Orbital contents: Included portions unremarkable. Additional findings: None. IMPRESSION: Chronic involutional changes without acute intracranial abnormality. If there is persistent clinical concern for intracranial pathology, MR examination is recommended for further characterization. Signed: JR Ochoa Robert MDReport Verified Date/Time: 06/29/2019 13:31:59 Reading Location: [address] Neuro Reading Room [facility] HospitalLactic acid, [id number] 13:14:00 Test Item Value Reference Range Interpretation Comments Lactate, Venous (test 1.4 mmol/L 0.5-2.2 Specim en markedly code = 2872) hemolyzed Lab Interpretation (test Normal code = 61362-1) [facility] CenterLACT ACID, [id number] 13:14:00 Test Item Value Reference Range Interpretation Comments LACTATE BLOOD VENOUS 1.4 mmol/L 0.5-2.2 Specime n markedly (2) (BEAKER) (test hemolyzed code = 2872) POCT-GLUCOSE [id number] 13:01:00 Test Item Value Reference Range Interpretation Comments POC-GLUCOSE METER 146 mg/dL 70-110 H : TESTED A T [facility] 6720 (BEAKER) (test code = [place] [facility], 1538) [address]: Fire Extinguisher Repairer Inspector/Techni mckenna ID = [id number] for JESSE DUEÑAS [id number] 12:24:00 Test Item Value Reference Range Interpretation Comments Procalcitonin (test code = 2.07 ng/mL <0.05 H 75280-8) JULIO (test code = JULIO) SEPSIS RISK (ng/mL)Low: 0.05-0.50Intermedi ate: 0.51-2.00High: >=2.01 Lab Interpretation (test Abnormal code = 47468-7) [facility] [id number] 12:24:00 Test Item Value Reference Range Interpretation Comments PROCALCITONIN (BEAKER) (test code 2.07 ng/mL <0.05 H = 3036) SEPSIS RISK (ng/mL)Low: 0.05-0.50Intermediate: 0.51-2.00High: >=2.01Respiratory Panel [id number] 12:04:00 Test Item Value Reference Range Interpretation Comments Human Metapneumovirus Not detected Not detected, (test code = 55117-5) Equivocal Rhinovirus (test code = Not detected Not detected, 25215-9) Equivocal INFLUENZA A (NO Not detected Not detected, SUBTYPE) (test code = Equivocal 47079-7) Influenza A subtype H1 (test code = 49153-6) Influenza A Subtype H3 (test code = 22691-9) Influenza A Subtype H1-2009 (test code = 81928-1) Influenza B (test code Not detected Not detected, = 50503-3) Equivocal Respiratory Syncytial Not detected Not detected, Virus (test code = Equivocal 09903-1) Parainfluenza Virus 1 Not detected Not detected, (test code = 89374-9) Equivocal Parainfluenza Virus 2 Not detected Not detected, (test code = 41853-2) Equivocal Parainfluenza virus 3 Not detected Not detected, (test code = 97911-8) Equivocal Parainfluenza Virus 4 Not detected Not detected, (test code = 18727-6) Equivocal Adenovirus (test code = Not detected Not detected, 63913-6) Equivocal Coronavirus 229E (test Not detected Not detected, code = 43085-3) Equivocal Coronavirus HKU1 (test Not detected Not detected, code = 76168-6) Equivocal Coronavirus NL63 (test Not detected Not detected, code = 73728-8) Equivocal Coronavirus OC43 (test Not detected Not detected, code = 84891-1) Equivocal Bordetella Pertussis Not detected Not detected, (test code = 17777-6) Equivocal Chlamydophila Not detected Not detected, Pneumoniae (test code = Equivocal 92867-5) Mycoplasma Pneumoniae Not detected Not detected, (test code = 25083-9) Equivocal JULIO (test code = JULIO) Other viruses and bacteria not targeted by this PCR panel cannot be excluded; therefore clinical correlation and follow up of serology, culture results, and other molecular studies is required. The results are not intended to be used as the sole means for clinical diagnosis or patient management decisions. This sample was tested at the [facility] Molecular Diagnostics Laboratory using the [employer] Respiratory Panel. It is FDA cleared and has been verified and approved by the [facility] Molecular Diagnostics Laboratory for clinical use on nasopharyngeal swab specimens. The performance of the FilmArray RP has not been established in individuals who received influenza vaccine. Recent administration of a nasal influenza vaccine may cause false positive results for Influenza A and/orInfluenza B. [facility] [id number] 12:04:00 Test Item Value Reference Range Interpretation Comments HUMAN METAPNEUMOVIRUS Not detected Not detected, (BEAKER) (test code = 2683) Equivocal RHINOVIRUS (BEAKER) (test Not detected Not detected, code = 2684) Equivocal INFLUENZA A (BEAKER) (test Not detected Not detected, code = 2685) Equivocal INFLUENZA A (NO SUBTYPE) (test code = 3606) INFLUENZA A SUBTYPE H1 (BEAKER) (test code = 2686) INFLUENZA A SUBTYPE H3 (BEAKER) (test code = 2687) INFLUENZA A SUBTYPE H1-2009 (BEAKER) (test code = 3198) INFLUENZA B (BEAKER) (test Not detected Not detected, code = 2688) Equivocal RESPIRATORY SYNCYTIAL VIRUS Not detected Not detected, (BEAKER) (test code = 3199) Equivocal PARAINFLUENZA VIRUS 1 Not detected Not detected, (BEAKER) (test code = 2691) Equivocal PARAINFLUENZA VIRUS 2 Not detected Not detected, (BEAKER) (test code = 2692) Equivocal PARAINFLUENZA VIRUS 3 Not detected Not detected, (BEAKER) (test code = 2693) Equivocal PARAINFLUENZA VIRUS 4 Not detected Not detected, (BEAKER) (test code = 3200) Equivocal ADENOVIRUS (BEAKER) (test Not detected Not detected, code = 2694) Equivocal CORONAVIRUS 229E (BEAKER) Not detected Not detected, (test code = 3201) Equivocal CORONAVIRUS HKU1 (BEAKER) Not detected Not detected, (test code = 3202) Equivocal CORONAVIRUS NL63 (BEAKER) Not detected Not detected, (test code = 3203) Equivocal CORONAVIRUS OC43 (BEAKER) Not detected Not detected, (test code = 3204) Equivocal BORDETELLA PERTUSSIS Not detected Not detected, (BEAKER) (test code = 3205) Equivocal CHLAMYDOPHILA PNEUMONIAE Not detected Not detected, (BEAKER) (test code = 3206) Equivocal MYCOPLASMA PNEUMONIAE Not detected Not detected, (BEAKER) (test code = 3207) Equivocal Other viruses and bacteria not targeted by this PCR panel cannot be excluded; therefore clinical correlation and follow up of serology, culture results, and other molecular studies is required. The results are not intended to be used as the sole means for clinical diagnosis or patient management decisions. This sample was tested at the [facility] Molecular Diagnostics Laboratory using the [employer] Respiratory Panel. It is FDA cleared and has been verified and approved by the [facility] Molecular Diagnostics Laboratory for clinical use on nasopharyngeal swab specimens.The performance of the FilmArrayRP has not been established in individuals who received influenza vaccine. Recent administration ofa nasal influenza vaccine may cause false positive results for Influenza A and/orInfluenza B.TSH/Free T4 If [id number] 11:51:00 Test Item Value Reference Range Interpretation Comments TSH (test code = 80464-4) 0.42 0.35- 4.94 uIU/mL Lab Interpretation (test code = Normal 92084-4) [facility] [id number] 11:51:00 Test Item Value Reference Range Interpretation Comments THYROID STIMULATING HORMONE 0.42 uIU/mL 0.35-4.94 (BEAKER) (test code = 772) [id number] 11:36:00 Test Item Value Reference Range Interpretation Comments MAGNESIUM (BEAKER) 1.8 mg/dL 1.6-2.6 Specimen slightly (test code = 627) hemolyzed Rapid Influenza A&B [id number] 10:04:00 Test Item Value Reference Range Interpretation Comments Rapid Influenza A Antigen Negative Negative, Inconclusive (test code = 22510-0) Rapid influenza B Antigen Negative Negative, Inconclusive (test code = 06582-7) Lab Interpretation (test code Normal = 87477-5) [facility]&B [id number] 10:04:00 Test Item Value Reference Range Interpretation Comments RAPID INFLUENZA A AG (BEAKER) Negative Negative, Inconclusive (test code = 1622) RAPID INFLUENZA B AG (BEAKER) Negative Negative, Inconclusive (test code = 1623) Urinalysis w/Microscopic + Reflex to [id number] 10:01:00 Test Item Value Reference Range Interpretation Comments Color, UA (test code = 5778-6) Yellow Clarity, UA (test code = 5767-9) Hazy Specific [place], UA (test code = 1.019 1.001-1.035 5811-5) pH, UA (test code = 5803-2) 5.5 5.0-8.0 Protein, UA (test code = 89469-1) 10 mg/dL Negative A Glucose, UA (test code = 365) Negative Negative Ketones, UA (test code = 2514-8) Negative Negative Bilirubin, UA (test code = 13421-0) Negative Negative Blood, UA (test code = 50341-6) Moderate Negative A Nitrite, UA (test code = 5802-4) Negative Negative Leukocytes, UA (test code = 5799-2) Trace Negative A Urobilinogen, UA (test code = 0.2 mg/dL 0.2-1 12344-5) RBC, UA (test code = 73143-1) 65 /HPF WBC, UA (test code = 5821-4) 0 /HPF Squam Epithel, UA (test code = 2 /HPF 66098-1) Hyaline Casts, UA (test code = 55 /LPF 90198-6) Specimen Source (test code = 2795) Lab Interpretation (test code = Abnormal 44483-8) [facility] URINE [id number] 10:01:00 Test Item Value Reference Range Interpretation Comments COLOR (BEAKER) (test code = 470) Yellow CLARITY (BEAKER) (test code = 469) Hazy SPECIFIC GRAVITY UA (BEAKER) (test 1.019 1.001-1.035 code = 468) PH UA (BEAKER) (test code = 467) 5.5 5.0-8.0 PROTEIN UA (BEAKER) (test code = 10 mg/dL Negative A 464) GLUCOSE UA (BEAKER) (test code = Negative Negative 365) KETONES UA (BEAKER) (test code = Negative Negative 371) BILIRUBIN UA (BEAKER) (test code = Negative Negative 462) BLOOD UA (BEAKER) (test code = 461) Moderate Negative A NITRITE UA (BEAKER) (test code = Negative Negative 465) LEUKOCYTE ESTERASE UA (BEAKER) Trace Negative A (test code = 466) UROBILINOGEN UA (BEAKER) (test code 0.2 mg/dL 0.2-1.0 = 463) RBC UA (BEAKER) (test code = 519) 65 /HPF WBC UA (BEAKER) (test code = 520) 0 /HPF SQUAMOUS EPITHELIAL (BEAKER) (test 2 /HPF code = 516) HYALINE CASTS (BEAKER) (test code = 55 /LPF 514) SOURCE(BEAKER) (test code = 2795) B-type Natriuretic Factor (BNP)2019-06-29 09:44:00 Test Item Value Reference Range Interpretation Comments BNP (test code = 87042-5) 348 pg/mL 0-100 H Lab Interpretation (test code = Abnormal 12687-8) [facility] NAT[facility] FA[facility] (BNP)2019-06-29 09:44:00 Test Item Value Reference Range Interpretation Comments B-TYPE NATRIURETIC PEPTIDE (BEAKER) 348 pg/mL 0-100 H (test code = 700) TROPONIN [id number] 09:41:00 Test Item Value Reference Range Interpretation Comments TROPONIN I (BEAKER) (test code = 0.08 ng/mL 0.00-0.03 H 397) Troponin I (TnI) levels must be interpreted in the context of the presenting symptoms and the clinical findings. Elevated TnI levels indicate myocardial damage, but are not specific for ischemic heart disease. Elevated TnI levels are seen in patients with other cardiac conditions (including myocarditis and congestive heart failure), and slight TnI elevations occur in patients with other conditions, including sepsis, renal failure, acidosis, acute neurological disease, and persistent tachyarrhythmia.BASIC METABOLIC [id number] 09:30:00 Test Item Value Reference Range Interpretation Comments SODIUM (BEAKER) (test 137 meq/L 136-145 code = 381) POTASSIUM (BEAKER) 3.7 meq/L 3.5-5.1 Specimen slightly (test code = 379) hemolyzed CHLORIDE (BEAKER) 98 meq/L 98-107 (test code = 382) CO2 (BEAKER) (test 28 meq/L 22-29 code = 355) BLOOD UREA NITROGEN 14 mg/dL 7-21 (BEAKER) (test code = 354) CREATININE (BEAKER) 1.72 mg/dL 0.57-1.25 H Specimen slightly (test code = 358) hemolyzed GLUCOSE RANDOM 163 mg/dL 70-105 H (BEAKER) (test code = 652) CALCIUM (BEAKER) 8.5 mg/dL 8.4-10.2 (test code = 697) EGFR (BEAKER) (test INSUFFIC IENT CLINICAL code = 1092) DATA TO CALCULA TE ESTIMATED GFR. HEPATIC FUNCTION [id number] 09:29:00 Test Item Value Reference Range Interpretation Comments TOTAL PROTEIN (BEAKER) 6.7 gm/dL 6.0-8.3 Speci men slightly (test code = 770) hemolyzed ALBUMIN (BEAKER) (test 3.6 g/dL 3.5-5.0 Speci men slightly code = 1145) hemolyzed BILIRUBIN TOTAL 0.5 mg/dL 0.2-1.2 Specimen sli ghtly (BEAKER) (test code = hemoly zed 377) BILIRUBIN DIRECT 0.2 mg/dL 0.1-0.5 Specimen sl ightly (BEAKER) (test code = hemoly zed 706) ALKALINE PHOSPHATASE 67 U/L 40-150 (BEAKER) (test code = 346) AST (SGOT) (BEAKER) 28 U/L 5-34 Specimen slightly (test code = 353) hemolyzed ALT (SGPT) (BEAKER) 13 U/L 6-55 Specimen slightly (test code = 347) hemolyzed [id number] 07:07:00 Test Item Value Reference Range Interpretation Comments Protime (test code = 28.2 11.9- 14.2 H 5902-2) seconds INR (test code = 2.8 <=5.9 6301-6) PTT (test code = 45.6 22.5- 36.0 H 23164-2) seconds JULIO (test code = JULIO) Effective 11/30/2018: PT Reference Range ChangeNew: 11.9-14.2 Previous: 11.7-14.7 RECOMMENDED COUMADIN/WARFARIN INR THERAPY RANGESSTANDARD DOSE: 2.0-3.0 Includes: PROPHYLAXIS for venous thrombosis, systemic embolization; TREATMENT for venous thrombosis and/or pulmonary embolus.HIGH RISK: Target INR is 2.5-3.5 for patients wiht mechanical heart valves. Lab Interpretation Abnormal (test code = 94150-6) [facility] CenterPT/[id number] 07:07:00 Test Item Value Reference Range Interpretation Comments PROTIME (BEAKER) (test code = 28.2 seconds 11.9-14.2 H 759) INR (BEAKER) (test code = 370) 2.8 <=5.9 PARTIAL THROMBOPLASTIN TIME 45.6 seconds 22.5-36.0 H (BEAKER) (test code = 760) Effective 11/30/2018: PT Reference Range ChangeNew: 11.9-14.2 Previous: 11.7- 14.7RECOMMENDED COUMADIN/WARFARIN INR THERAPY RANGESSTANDARD DOSE: 2.0-3.0 Includes: PROPHYLAXIS for venous thrombosis, systemic embolization; TREATMENT for venous thrombosis and/or pulmonary embolus.HIGH RISK: Target INR is2.5-3.5 for patients wiht mechanical heart valves.CBC W/PLT COUNT & AUTO [id number] 07:06:00 Test Item Value Reference Range Interpretation Comments WHITE BLOOD CELL COUNT (BEAKER) 13.3 K/ L 3.5-10.5 H (test code = 775) RED BLOOD CELL COUNT (BEAKER) 3.32 M/ L 3.93-5.22 L (test code = 761) HEMOGLOBIN (BEAKER) (test code = 9.7 GM/DL 11.2-15.7 L 410) HEMATOCRIT (BEAKER) (test code = 31.8 % 34.1-44.9 L 411) MEAN CORPUSCULAR VOLUME (BEAKER) 95.8 fL 79.4-94.8 H (test code = 753) MEAN CORPUSCULAR HEMOGLOBIN 29.2 pg 25.6-32.2 (BEAKER) (test code = 751) MEAN CORPUSCULAR HEMOGLOBIN CONC 30.5 GM/DL 32.2-35.5 L (BEAKER) (test code = 752) RED CELL DISTRIBUTION WIDTH 14.6 % 11.7-14.4 H (BEAKER) (test code = 412) PLATELET COUNT (BEAKER) (test 276 K/CU MM 150-450 code = 756) MEAN PLATELET VOLUME (BEAKER) 10.8 fL 9.4-12.3 (test code = 754) NUCLEATED RED BLOOD CELLS 0 /100 WBC 0-0 (BEAKER) (test code = 413) NEUTROPHILS RELATIVE PERCENT 94 % (BEAKER) (test code = 429) LYMPHOCYTES RELATIVE PERCENT 4 % (BEAKER) (test code = 430) MONOCYTES RELATIVE PERCENT 1 % (BEAKER) (test code = 431) EOSINOPHILS RELATIVE PERCENT 0 % (BEAKER) (test code = 432) BASOPHILS RELATIVE PERCENT 0 % (BEAKER) (test code = 437) NEUTROPHILS ABSOLUTE COUNT 12.55 K/ L 1.56-6.13 H (BEAKER) (test code = 670) LYMPHOCYTES ABSOLUTE COUNT 0.55 K/ L 1.18-3.74 L (BEAKER) (test code = 414) MONOCYTES ABSOLUTE COUNT (BEAKER) 0.17 K/ L 0.24-0.36 L (test code = 415) EOSINOPHILS ABSOLUTE COUNT 0.00 K/ L 0.04-0.36 L (BEAKER) (test code = 416) BASOPHILS ABSOLUTE COUNT (BEAKER) 0.01 K/ L 0.01-0.08 (test code = 417) IMMATURE GRANULOCYTES-RELATIVE 0 % 0-1 PERCENT (BEAKER) (test code = 2801) BLOOD GAS, [id number] 06:54:00 Test Item Value Reference Range Interpretation Comments PH ARTERIAL (BEAKER) (test code = 7.43 7.35-7.45 383) PCO2 ARTERIAL (BEAKER) (test code 47 mmHg 35-45 H = 384) PO2 ARTERIAL (BEAKER) (test code = 79 mmHg 80-90 L 385) O2 SATURATION ARTERIAL (BEAKER) 96.1 % 96.0-97.0 (test code = 386) HCO3 ARTERIAL (BEAKER) (test code 31 mmol/L 21-29 H = 388) BASE EXCESS ARTERIAL (BEAKER) 5.3 mmol/L -2.0-3.0 H (test code = 387) PATIENT TEMPERATURE (BEAKER) (test 36.5 C code = 1818) FIO2 (BEAKER) (test code = 1819) 50.0 % RAD, CHEST, 1 VIEW, NON [id number] 06:14:00Reason for exam:- >intubatedShould this be performed at the bedside?->YesFINAL REPORT RAD, CHEST, 1 VIEW, NON DEPT INDICATION: intubated COMPARISON: None available FINDINGS: Portable frontal view of the chest. IMPRESSION: Support Lines: Endotracheal tube terminates 3.5 cm above the shamir. Enteric tube is seen with tip overlying the mid mediastinum proximal sidehole at the level of the thoracic inlet, recommend repositioning. Lungs and pleura: Prominence of the pulmonary vasculature, particularly in the right hilum, possibly representing pulmonary vascular hypertension however with coarse reticular nodular airspace opacities bilaterally which may reflect interstitial edema versus atypical infection. No pleural effusion. Right basilar atelectasi s. No pneumothorax.Heart and mediastinum: Within normal limits given technique. Metastatic calcifications of the thoracic aorta.Additional findings: Surgical clips over the right neck. Signed: [facility]ony [facility] Verified Date/Time: 06/29/2019 06:14:08 - [employer] VEIN UNI/[id number] 12:42:00 Name: SUKI KOROMA [facility] : 1950 Age/S: 68 / F [address] [place] [address] Unit #: [id number] Loc: [place], [place] Phys: Fredo Eduardo MD Acct: [id number] Dis Date: Status: ADM IN PHONE #: [phone] Exam Date: 06/21/2019 1157 FAX #: [phone] Reason: POSSIBLE HEMATOMA EXAMS: CPTCODE: [id number] DUP VEIN UNI/LTD 39858 EXAM: US RIGHT UPPER EXTREMITY VENOUS DOPPLER DATE: 06/21/2019 1:58 PM : 1950; Age: 68 years y/o Female INDICATION: Palpable abnormality in the right neck, recent central line removal, POSSIBLE HEMATOMA ADDITIONAL INFORMATION: None. COMPARISON:None. TECHNIQUE: Multiplanar grayscale, color Doppler and spectral Doppler ultrasound of the right upper extremity veins. FINDINGS: Right Upper Extremity Veins: Internal Jugular: Patent. Subclavian: Patent. Axillary: Patent. Brachial: Patent. Basilic: Patent. Cephalic: Patent. Other: Radial andulnar veins are patent. No abnormality is noted in the palpable area of interest. IMPRESSION: No deep venous thrombosis (DVT). at 1242 Reported and signed by: Gallito Espinoza D.O. 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 [facility] [id number] 10:22:00 Test Item Value Reference Range Interpretation Comments MAGNESIUM (test code = MAG) 2.80 mg/dL 1.8-2.4 H COMMENTS: MAY USE BLOOD SPECIMEN IN LABBASIC METABOLIC [id number] 08:29:00 Test Item Value Reference Range Interpretation Comments SODIUM (test code = NA) 139 mEq/L 134-147 N POTASSIUM (test code = 3.5 mEq/L 3.4-5.0 N K) CHLORIDE (test code = 102 mEq/L 100-108 N CL) CARBON DIOXIDE (test 31 mEq/L 21-33 N code = CO2) ANION GAP (test code = 10 0-20 N GAP) GLUCOSE (test code = 96 mg/dL 70-110 N GLU) BLOOD UREA NITROGEN 10 mg/dL 7-18 N (test code = BUN) GLOMERULAR FILTRATION 54.8 70-80 L Units of measure = RATE (test code = GFR) ml/mi n/1.73 m2 CREATININE (test code = 1.0 mg/dL 0.6-1.3 N CREAT) CALCIUM (test code = 9.3 mg/dL 8.0-10.5 N CA) [id number] 07:35:00 Test Item Value Reference Range Interpretation Comments GLUBED (test code = 92 MG/DL 70-110 N Performe d by certified GLUBED) 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1 fL 81.0-99.0 N MCV) MEAN CELL HGB (test code = MCH) 28.8 pg 27.0-33.0 N MEAN CELL HGB CONCETRATION 29.6 g/dL 33.0-37.0 L (test code = MCHC) RED CELL DISTRIBUTION WIDTH CV 14.3 % 11.5-14.5 N (test code = RDW) RED CELL DISTRIBUTION WIDTH SD 50.8 fL 37.0-54.0 N (test code = RDW-SD) PLATELET COUNT (test code = 331 x10 3/uL 150-400 N PLT) MEAN PLATELET VOLUME (test code 10.2 fL 7.0-9.0 H = MPV) NEUTROPHIL % (test code = NT%) 45.0 % 56.0-77.0 L IMMATURE GRANULOCYTE % (test 0.2 % 0.0-2.0 N code = IG%) LYMPHOCYTE % (test code = LY%) 34.3 % 14.0-32.0 H MONOCYTE % (test code = MO%) 11.4 % 4.8-9.0 H EOSINOPHIL % (test code = EO%) 8.5 % 0.3-3.7 H BASOPHIL % (test code = BA%) 0.6 % 0.0-2.0 N NUCLEATED RBC % (test code = 0.0 % 0-0 N NRBC%) NEUTROPHIL # (test code = NT#) 2.45 x10 3/uL 2.0-7.6 N IMMATURE GRANULOCYTE # (test 0.01 x10 3/uL 0.00-0.03 N code = IG#) LYMPHOCYTE # (test code = LY#) 1.86 x10 3/uL 1.0-3.8 N MONOCYTE # (test code = MO#) 0.62 x10 3/uL 0.1-0.8 N EOSINOPHIL # (test code = EO#) 0.46 x10 3/uL 0.0-0.2 H BASOPHIL # (test code = BA#) 0.03 x10 3/uL 0.0-0.2 N NUCLEATED RBC # (test code = 0.00 x10 3/uL 0.0-0.1 N NRBC#) MANUAL DIFF REQUIRED (test code NO = MDIFF) [id number] 17:02:00 Test Item Value Reference Range Interpretation Comments GLUBED (test code = 108 MG/DL 70-110 N Performe d by certified GLUBED) 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 [facility] [id number] 17:01:00 Test Item Value Reference Range Interpretation Comments GLUBED (test code = 102 MG/DL 70-110 N Performe d by certified GLUBED) 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 [facility] [id number] 12:13:00 Test Item Value Reference Range Interpretation Comments MAGNESIUM (test code = MAG) 1.50 mg/dL 1.8-2.4 L CBC W/AUTO [id number] 10:36:00 Test Item Value Reference Range Interpretation Comments WHITE BLOOD CELL (test code = 6.13 x10 3/uL 4.5-11.0 N WBC) RED BLOOD CELL (test code = 2.98 x10 6/uL 3.54-5.02 L RBC) HEMOGLOBIN (test code = HGB) 8.7 g/dL 11.0-15.0 L HEMATOCRIT (test code = HCT) 28.8 % 33.0-45.0 L MEAN CELL VOLUME (test code = 96.6 fL 81.0-99.0 N MCV) MEAN CELL HGB (test code = MCH) 29.2 pg 27.0-33.0 N MEAN CELL HGB CONCETRATION 30.2 g/dL 33.0-37.0 L (test code = MCHC) RED CELL DISTRIBUTION WIDTH CV 14.5 % 11.5-14.5 N (test code = RDW) RED CELL DISTRIBUTION WIDTH SD 51.7 fL 37.0-54.0 N (test code = RDW-SD) PLATELET COUNT (test code = 291 x10 3/uL 150-400 N PLT) MEAN PLATELET VOLUME (test code 9.9 fL 7.0-9.0 H = MPV) NEUTROPHIL % (test code = NT%) 60.7 % 56.0-77.0 N IMMATURE GRANULOCYTE % (test 0.3 % 0.0-2.0 N code = IG%) LYMPHOCYTE % (test code = LY%) 22.3 % 14.0-32.0 N MONOCYTE % (test code = MO%) 10.0 % 4.8-9.0 H EOSINOPHIL % (test code = EO%) 6.2 % 0.3-3.7 H BASOPHIL % (test code = BA%) 0.5 % 0.0-2.0 N NUCLEATED RBC % (test code = 0.0 % 0-0 N NRBC%) NEUTROPHIL # (test code = NT#) 3.72 x10 3/uL 2.0-7.6 N IMMATURE GRANULOCYTE # (test 0.02 x10 3/uL 0.00-0.03 N code = IG#) LYMPHOCYTE # (test code = LY#) 1.37 x10 3/uL 1.0-3.8 N MONOCYTE # (test code = MO#) 0.61 x10 3/uL 0.1-0.8 N EOSINOPHIL # (test code = EO#) 0.38 x10 3/uL 0.0-0.2 H BASOPHIL # (test code = BA#) 0.03 x10 3/uL 0.0-0.2 N NUCLEATED RBC # (test code = 0.00 x10 3/uL 0.0-0.1 N NRBC#) MANUAL DIFF REQUIRED (test code NO = MDIFF) ARTERIAL BLOOD [id number] 09:02:00 Test Item Value Reference Range Interpretation Comments ARTERIAL BLOOD GAS PH 7.312 7.35-7.45 L (test code = PHA) ARTERIAL BLOOD GAS 63.9 mmHg 35-45 H PCO2 (test code = PCO2A) ARTERIAL BLOOD GAS PO2 21 mmHg 80-100 LL (test code = PO2A) BICARBONATE TOTAL HCO3 32.4 mmol/L 22.0-26.0 H (test code = HCO3) BASE EXCESS (test code 6.0 mmol/L -4-4 H = EDUARD) ABG O2 SATURATION 29 % 90-100 L (test code = SATA) FIO2 (test code = 80 % FIO2A) ABG DELIVERY (test Vent code = JULIA) ABG VENT MODE (test SIMV v con code = MODEA) ABG VENT RESP RATE 17 /MIN (test code = RRA) ABG TIDAL VOLUME (test 404 ml Perfo rmed by code = TVA) certified opera tor at [facility] ABG TEMPERATURE (test 98.0 F code = TEMPA) ABG SITE (test code = L Brach SITEA) PREDICTED AA GRADIENT 128 (test code = AP) PREDICTED PO2 (test 365 code = OP) a/A RATIO (test code = 0.04 RATIO) TCO2 ARTERIAL (test 34 code = TCO2A) A-A GRADIENT (test 473 code = AAGRADE) [id number] 05:55:00 Test Item Value Reference Range Interpretation Comments GLUBED (test code = 96 MG/DL 70-110 N Performe d by certified GLUBED) 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 [facility] [id number] 23:51:00 Test Item Value Reference Range Interpretation Comments GLUBED (test code = 101 MG/DL 70-110 N Performe d by certified GLUBED) 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 [facility] [id number] 20:43:00 Test Item Value Reference Range Interpretation Comments GLUBED (test code = 85 MG/DL 70-110 N Performe d by certified GLUBED) 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 [facility] [id number] 20:32:00 Test Item Value Reference Range Interpretation Comments GLUBED (test code = 113 MG/DL 70-110 H Performe d by certified GLUBED) 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 [facility] [id number] 17:01:00 Test Item Value Reference Range Interpretation Comments GLUBED (test code = 97 MG/DL 70-110 N Performe d by certified GLUBED) 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 [facility] [id number] 12:33:00 Test Item Value Reference Range Interpretation Comments GLUBED (test code = 103 MG/DL 70-110 N Performe d by certified GLUBED) 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 [facility] - XR CHEST 1 [id number] 09:32:00 FAX: Effie Coto MD [phone] [place]: St: ADM FAX: Jose Lebron MD [phone] Name: SUKI KOROMA [facility] : 1950 Age/S: 68/F [address] [place] [address] Unit #: [id number] Loc: G.5518 [place] [address] Phys: Effie De La Cruz MD Acct: [id number] Dis Date: Status: ADM IN PHONE #: [phone] Exam Date: 06/19/2019913 FAX #: [phone] Reason: sob EXAMS: CPT CODE: [id number] XR CHEST 1 V 30665 CLINICAL HIST ORY:sob COMPARISON:June 17, 2019 at 1530 Frontal film of the chest performed at 0747 on June 19, 2019 demonstrates that previously noted endotracheal tube has been removed. Venous catheter tip is in superior vena cava. Monitor leads remain in place. Heart size is normal. There is better aeration of right upper and midlung field compared to previous examination. Residual opacities are present in the right lower lobe.Pulmonary opacities seen at the left lung base are also improved compared to previous examination. No evidence of pneumothorax or pneumomediastinum is seen. IMPRESSION: Interval improvement in pulmonary opacities bilaterally compared to previous examination. at 0932 Reported and signed by: Jian Frederick M.D. CC: Effie De La Cruz MD; Jose Garcia MD Technologist: Alize Hernández RT(R) Trnmtrd Date/Time/By: 06/19/2019 (0932) : By: [email or web address] Orig Print D/T: S: 06/19/2019 (0997) PAGE 1 Signed ReportBASIC METABOLIC PANEL 2019-06-19 08:34:00 Test Item Value Reference Range Interpretation Comments SODIUM (test code = NA) 140 mEq/L 134-147 N POTASSIUM (test code = 3.1 mEq/L 3.4-5.0 L K) CHLORIDE (test code = 102 mEq/L 100-108 N CL) CARBON DIOXIDE (test 32 mEq/L 21-33 N code = CO2) ANION GAP (test code = 9 0-20 N GAP) GLUCOSE (test code = 79 mg/dL 70-110 N GLU) BLOOD UREA NITROGEN 14 mg/dL 7-18 N (test code = BUN) GLOMERULAR FILTRATION 44.4 70-80 L Units of measure = RATE (test code = GFR) ml/mi n/1.73 m2 CREATININE (test code = 1.2 mg/dL 0.6-1.3 N CREAT) CALCIUM (test code = 8.5 mg/dL 8.0-10.5 N CA) CBC W/AUTO [id number] 07:11:00 Test Item Value Reference Range Interpretation Comments WHITE BLOOD CELL (test code = 5.62 x10 3/uL 4.5-11.0 N WBC) RED BLOOD CELL (test code = 2.78 x10 6/uL 3.54-5.02 L RBC) HEMOGLOBIN (test code = HGB) 8.2 g/dL 11.0-15.0 L HEMATOCRIT (test code = HCT) 27.3 % 33.0-45.0 L MEAN CELL VOLUME (test code = 98.2 fL 81.0-99.0 N MCV) MEAN CELL HGB (test code = MCH) 29.5 pg 27.0-33.0 N MEAN CELL HGB CONCETRATION 30.0 g/dL 33.0-37.0 L (test code = MCHC) RED CELL DISTRIBUTION WIDTH CV 14.6 % 11.5-14.5 H (test code = RDW) RED CELL DISTRIBUTION WIDTH SD 53.7 fL 37.0-54.0 N (test code = RDW-SD) PLATELET COUNT (test code = 308 x10 3/uL 150-400 N PLT) MEAN PLATELET VOLUME (test code 10.2 fL 7.0-9.0 H = MPV) NEUTROPHIL % (test code = NT%) 49.3 % 56.0-77.0 L IMMATURE GRANULOCYTE % (test 0.2 % 0.0-2.0 N code = IG%) LYMPHOCYTE % (test code = LY%) 31.9 % 14.0-32.0 N MONOCYTE % (test code = MO%) 11.2 % 4.8-9.0 H EOSINOPHIL % (test code = EO%) 6.9 % 0.3-3.7 H BASOPHIL % (test code = BA%) 0.5 % 0.0-2.0 N NUCLEATED RBC % (test code = 0.0 % 0-0 N NRBC%) NEUTROPHIL # (test code = NT#) 2.77 x10 3/uL 2.0-7.6 N IMMATURE GRANULOCYTE # (test 0.01 x10 3/uL 0.00-0.03 N code = IG#) LYMPHOCYTE # (test code = LY#) 1.79 x10 3/uL 1.0-3.8 N MONOCYTE # (test code = MO#) 0.63 x10 3/uL 0.1-0.8 N EOSINOPHIL # (test code = EO#) 0.39 x10 3/uL 0.0-0.2 H BASOPHIL # (test code = BA#) 0.03 x10 3/uL 0.0-0.2 N NUCLEATED RBC # (test code = 0.00 x10 3/uL 0.0-0.1 N NRBC#) MANUAL DIFF REQUIRED (test code NO = MDIFF) [id number] 00:14:00 Test Item Value Reference Range Interpretation Comments GLUBED (test code = 101 MG/DL 70-110 N Performe d by certified GLUBED) 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 [facility] [id number] 17:54:00 Test Item Value Reference Range Interpretation Comments GLUBED (test code = 123 MG/DL 70-110 H Performe d by certified GLUBED) 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 [facility] [id number] 12:46:00 Test Item Value Reference Range Interpretation Comments GLUBED (test code = 91 MG/DL 70-110 N Performe d by certified GLUBED) 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 [facility] BASIC METABOLIC [id number] 08:07:00 Test Item Value Reference Range Interpretation Comments SODIUM (test code = NA) 140 mEq/L 134-147 N POTASSIUM (test code = 3.2 mEq/L 3.4-5.0 L K) CHLORIDE (test code = 103 mEq/L 100-108 N CL) CARBON DIOXIDE (test 32 mEq/L 21-33 N code = CO2) ANION GAP (test code = 8 0-20 N GAP) GLUCOSE (test code = 86 mg/dL 70-110 GLU) BLOOD UREA NITROGEN 13 mg/dL 7-18 N (test code = BUN) GLOMERULAR FILTRATION 49.1 70-80 L Units of measure = RATE (test code = GFR) ml/mi n/1.73 m2 CREATININE (test code = 1.1 mg/dL 0.6-1.3 N CREAT) CALCIUM (test code = 8.2 mg/dL 8.0-10.5 N CA) CBC W/AUTO [id number] 07:13:00 Test Item Value Reference Range Interpretation Comments WHITE BLOOD CELL (test code = 7.21 x10 3/uL 4.5-11.0 N WBC) RED BLOOD CELL (test code = 2.76 x10 6/uL 3.54-5.02 L RBC) HEMOGLOBIN (test code = HGB) 8.1 g/dL 11.0-15.0 L HEMATOCRIT (test code = HCT) 26.7 % 33.0-45.0 L MEAN CELL VOLUME (test code = 96.7 fL 81.0-99.0 N MCV) MEAN CELL HGB (test code = MCH) 29.3 pg 27.0-33.0 N MEAN CELL HGB CONCETRATION 30.3 g/dL 33.0-37.0 L (test code = MCHC) RED CELL DISTRIBUTION WIDTH CV 15.3 % 11.5-14.5 H (test code = RDW) RED CELL DISTRIBUTION WIDTH SD 54.4 fL 37.0-54.0 H (test code = RDW-SD) PLATELET COUNT (test code = 306 x10 3/uL 150-400 N PLT) MEAN PLATELET VOLUME (test code 10.3 fL 7.0-9.0 H = MPV) NEUTROPHIL % (test code = NT%) 65.7 % 56.0-77.0 N IMMATURE GRANULOCYTE % (test 0.3 % 0.0-2.0 N code = IG%) LYMPHOCYTE % (test code = LY%) 20.4 % 14.0-32.0 N MONOCYTE % (test code = MO%) 9.3 % 4.8-9.0 H EOSINOPHIL % (test code = EO%) 3.9 % 0.3-3.7 H BASOPHIL % (test code = BA%) 0.4 % 0.0-2.0 N NUCLEATED RBC % (test code = 0.0 % 0-0 N NRBC%) NEUTROPHIL # (test code = NT#) 4.74 x10 3/uL 2.0-7.6 N IMMATURE GRANULOCYTE # (test 0.02 x10 3/uL 0.00-0.03 N code = IG#) LYMPHOCYTE # (test code = LY#) 1.47 x10 3/uL 1.0-3.8 N MONOCYTE # (test code = MO#) 0.67 x10 3/uL 0.1-0.8 N EOSINOPHIL # (test code = EO#) 0.28 x10 3/uL 0.0-0.2 H BASOPHIL # (test code = BA#) 0.03 x10 3/uL 0.0-0.2 N NUCLEATED RBC # (test code = 0.00 x10 3/uL 0.0-0.1 N NRBC#) MANUAL DIFF REQUIRED (test code NO = MDIFF) [id number] 05:54:00 Test Item Value Reference Range Interpretation Comments GLUBED (test code = 88 MG/DL 70-110 N Performe d by certified GLUBED) 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 [facility] [id number] 05:50:00 Test Item Value Reference Range Interpretation Comments GLUBED (test code = 95 MG/DL 70-110 N Performe d by certified GLUBED) 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 [facility] [id number] 18:26:00 Test Item Value Reference Range Interpretation Comments GLUBED (test code = 91 MG/DL 70-110 N Performe d by certified GLUBED) 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 [facility] ARTERIAL BLOOD [id number] 16:45:00 Test Item Value Reference Range Interpretation Comments ARTERIAL BLOOD GAS PH 7.414 7.35-7.45 N (test code = PHA) ARTERIAL BLOOD GAS 45.7 mmHg 35-45 H PCO2 (test code = PCO2A) ARTERIAL BLOOD GAS PO2 91 mmHg 80-100 N (test code = PO2A) BICARBONATE TOTAL HCO3 29.4 mmol/L 22.0-26.0 H (test code = HCO3) BASE EXCESS (test code 5.0 mmol/L -4-4 H = EDUARD) ABG O2 SATURATION 97 % 90-100 N (test code = SATA) FIO2 (test code = 40 % FIO2A) ABG DELIVERY (test Vent code = JULIA) ABG VENT MODE (test AC v con code = MODEA) ABG VENT RESP RATE 14 /MIN (test code = RRA) ABG TIDAL VOLUME (test 400 ml code = TVA) ABG PEEP (test code = 5 cmH2O Perfor med by PEEPA) certified opera tor at [facility] ABG TEMPERATURE (test 98.0 F code = TEMPA) ABG SITE (test code = L Rad SITEA) PREDICTED AA GRADIENT 59 (test code = AP) PREDICTED PO2 (test 171 code = OP) a/A RATIO (test code = 0.39 RATIO) TCO2 ARTERIAL (test 31 code = TCO2A) A-A GRADIENT (test 139 code = AAGRADE) RESPIRATORY VIRUS PANEL [id number] 15:55:00 Test Item Value Reference Interpretation Comments Range RSV A PCR (test Negative Negative code = RSV A) RSV B PCR (test Negative Negative code = RSV B) INFLUENZA A (test Negative Negative code = FLUAPCR) INFLUENZA A SUBTYPE Negative Negative H1 (test code = FLUAH1) INFLUENZA A SUBTYPE Negative Negative H3 (test code = FLUAH3) INFLUENZA B (test Negative Negative code = FLUBPCR) PARAINFLUENZA TYPE Negative Negative 1 PCR (test code = PIF1) PARAINFLUENZA TYPE Negative Negative 2 PCR (test code = PIF2) PARAINFLUENZA TYPE Negative Negative 3 PCR (test code = PIF3) PARAINFLUENZA TYPE Negative Negative 4 PCR (test code = PIF4) RHINOVIRUS PCR Negative Negative (test code = RHINO) METAPNEUMOVIRUS PCR Negative Negative (test code = METAPNEU) ADENOVIRUS PCR Negative Negative (test code = ADENOPCR) BORDETELLA Negative Negative PERTUSSIS DNA PCR (test code = BORDPERDNA) B PARAPERTUSSIS BY Negative Negative PCR (test code = BPARAPCR) BORDETELLA HOLMESII Negative Negative Testing was performed (test code = using nucleic a mehnaz BORDHOLM) amplificationin cluding Bordetella parapertussis/b rochiseptic a, Bordetella h olmesii, and Bordetella pertussis. COMPLEMENT BETA C1 RVP Comment Comment Testing w as performed (test code = using nucleic a mehnaz COMBC1) amplificationin cluding influenza A, in fluenza A H1, influenza A H3,influenza B, RSV-A, RSV-B, Adenovir us, HumanMetapneumo virus, Parainfluenza 1 ,2,3 and 4, Rhinovirus, Bor detella parapertussis/b rochiseptic a, Bordetella h olmesii, and Bordetella pertussis. - XR CHEST 1 [id number] 15:55:00 FAX: Alvarez Chase [phone] [place]: St: ADM FAX: Jose Lebron MD [phone] Name: SUKI KOROMA [facility] : 1950 Age/S: 68/F [address] [place] [address] Unit #: [id number] Loc: G.M306 [place] [address] Phys: Alvarez Jama MD Acct: [id number] Dis Date: Status: ADM IN PHONE #: [phone] Exam Date: 06/17/2019 1552 FAX #: [phone] Reason: resp failure EXAMS: CPT CODE: [id number] XR CHEST 1 V [id number] PROCEDURE: Chest Radiograph. Clinical Indication: Respiratory failure, septic shock, pneumonia. Comparison: Chest radiograph 06/17/2019 at 1:43 AM. FINDINGS: The chest shows pulmonary infiltrate/edema most pronounced throughout the right lung, with bibasilar atelectasis and consolidation. There are small bilateral pleural effusions The cardiac silhouette appears slightly enlarged. Support lines remain in place. Degenerative change involves the thoracic spine. IMPRESSION: 1. Pulmonary infiltrate/edema throughout the right lung with bibasilar atelectasis and consolidation. SL: OCO-H at 1555 Reported and signed by: Daniel Reid M.D. CC: Alvarez Jama MD; Jose Garcia MD Technologist: Leola Murcia RT(R) Trnscrd Date/Time/By: 06/17/2019 (0281) : By: nathalia FULTONTDO Orig Print D/T: S: 06/17/2019 (7846) PAGE 1 Signed [id number] 12:28:00 Test Item Value Reference Range Interpretation Comments GLUBED (test code = 92 MG/DL 70-110 N Performe d by certified GLUBED) 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 [facility] [id number] 07:23:00 Test Item Value Reference Range Interpretation Comments TROPONIN-I 0.043 ng/mL 0.000-0.045 N Negative: <= (test code = 0.045 Positive: TROPI) >= 0.046 Correl ation with serial results, other cardiac markers andclin ical findings is necessary to determine the clinicalsignifi cance of this result. Results using different metho dologies should not be c omparedto one another as mercy titative results may jersey y by method. COMMENTS: 3 troponins total (including troponin done in ED)[id number] 06:15:00 Test Item Value Reference Range Interpretation Comments GLUBED (test code = 99 MG/DL 70-110 N Performe d by certified GLUBED) 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 [facility] THYROID STIMULATING [id number] 05:10:00 Test Item Value Reference Range Interpretation Comments THYROID STIMULATING 0.51 0.42-5.47 N Results in HORMONE (test code = TSH) mi lli-International Units/mL HGBA1C%2019-06-17 05:07:00 Test Item Value Reference Range Interpretation Comments HGBA1C% (test code = HGBA1C%) < 3.5 %A1C 4.8-6.0 L [id number] 04:38:00 Test Item Value Reference Range Interpretation Comments TROPONIN-I 0.044 ng/mL 0.000-0.045 N Negative: <= (test code = 0.045 Positive: TROPI) >= 0.046 Correl ation with serial results, other cardiac markers andclin ical findings is necessary to determine the clinicalsignifi cance of this result. Results using different metho dologies should not be c omparedto one another as mercy titative results may [place] y by method. COMMENTS: 3 troponins total (including troponin done in ED)ARTERIAL BLOOD GAS 2019-06-17 02:41:00 Test Item Value Reference Range Interpretation Comments ARTERIAL BLOOD GAS PH 7.348 7.35-7.45 L (test code = PHA) ARTERIAL BLOOD GAS 56.8 mmHg 35-45 H PCO2 (test code = PCO2A) ARTERIAL BLOOD GAS PO2 257 mmHg 80-100 H (test code = PO2A) BICARBONATE TOTAL HCO3 31.2 mmol/L 22.0-26.0 H (test code = HCO3) BASE EXCESS (test code 6.0 mmol/L -4-4 H = EDUARD) ABG O2 SATURATION 100 % 90-100 N (test code = SATA) FIO2 (test code = 80 % FIO2A) ABG DELIVERY (test Vent code = JULIA) ABG VENT MODE (test AC v con code = MODEA) ABG VENT RESP RATE 14 /MIN (test code = RRA) ABG TIDAL VOLUME (test 400 ml code = TVA) ABG PEEP (test code = 5 cmH2O Perfor med by PEEPA) certified opera tor at [facility] ABG TEMPERATURE (test 37.1 F code = TEMPA) ABG SITE (test code = R Rad SITEA) PREDICTED AA GRADIENT 130 (test code = AP) PREDICTED PO2 (test 372 code = OP) a/A RATIO (test code = 0.51 RATIO) TCO2 ARTERIAL (test 33 code = TCO2A) A-A GRADIENT (test 245 code = AAGRADE) B-TYPE NATRIURETIC [id number] 02:38:00 Test Item Value Reference Range Interpretation Comments B-TYPE NATRIURETIC PEPTIDE (test 130.0 PG/ML 0-100 H code = BNP) PROTHROMBIN [id number] 02:27:00 Test Item Value Reference Range Interpretation Comments PROTHROMBIN TIME 25.5 SECONDS 9.3-12.9 H PATIENT (test code = PTP) INTERNATIONAL NORMAL 2.3 0.8-1.2 H TARGET RATIO (test code = INR BY IN DICATION INR) Indication INR1. Prophyl axis of venous thrombos is 2.0 - 3. 0 (orthopedic jameson sahara), Prophylaxis of venous thrombos is (other than hig h-risk surgery), Shani tment of Deep Vein Thrombosis/Pulm onary Embolism, Preve ntion of systemic emb olism - Tissue heart va lves, Acute Myocardia l Infarction (to prevent systemic embo lism), Valvular heart disease, Atri al Fibrillation, Bileaflet mecha nical valve in aortic position.2. Mec hanical prosthetic valv es (high risk), 2.5 - 3.5 Presence of Lupus Anticoagu lant or Antiphospholi pid Antibodies, Pre vention of systemic e mbolism - Acute Myocard ial Infarction (t o prevent recurre nt infarct). THROMBOPLASTIN TIME [id number] 02:27:00 Test Item Value Reference Range Interpretation Comments THROMBOPLASTIN TIME 45.3 Seconds 25.0-39.5 H Ther apeutic PARTIAL (test code = Range: 50.4 - 88.3 PTT) Seconds Effective 10/18/2018 BASIC METABOLIC [id number] 02:26:00 Test Item Value Reference Range Interpretation Comments SODIUM (test code = NA) 139 mEq/L 134-147 N POTASSIUM (test code = 4.2 mEq/L 3.4-5.0 N K) CHLORIDE (test code = 102 mEq/L 100-108 N CL) CARBON DIOXIDE (test 30 mEq/L 21-33 N code = CO2) ANION GAP (test code = 11 0-20 N GAP) GLUCOSE (test code = 124 mg/dL 70-110 H GLU) BLOOD UREA NITROGEN 15 mg/dL 7-18 N (test code = BUN) GLOMERULAR FILTRATION 37.2 70-80 L Units of measure = RATE (test code = GFR) ml/mi n/1.73 m2 CREATININE (test code = 1.4 mg/dL 0.6-1.3 H CREAT) CALCIUM (test code = 8.6 mg/dL 8.0-10.5 N CA) HEPATIC FUNCTION [id number] 02:26:00 Test Item Value Reference Range Interpretation Comments TOTAL PROTEIN (test code = PROT) 6.5 g/dL 6.4-8.2 N ALBUMIN (test code = ALB) 2.80 g/dL 3.4-5.0 L BILIRUBIN TOTAL (test code = BILT) 0.4 MG/DL <1.5 N BILIRUBIN DIRECT (test code = 0.10 MG/DL 0.0-0.30 BILD) BILIRUBIN INDIRECT (test code = 0.30 MG/DL BILIND) SGOT/AST (test code = AST) 19 IUnit/L 15-37 N SGPT/ALT (test code = ALT) 12 IUnit/L 15-65 L ALKALINE PHOSPHATASE TOTAL (test 66 IUnit/L 20-125 N code = ALKP) [id number] 02:26:00 Test Item Value Reference Range Interpretation Comments TROPONIN-I 0.027 ng/mL 0.000-0.045 N Negative: <= (test code = 0.045 Positive: TROPI) >= 0.046 Correl ation with serial results, other cardiac markers andclin ical findings is necessary to determine the clinicalsignifi cance of this result. Results using different metho dologies should not be c omparedto one another as mercy titative results may jersey y by method. LACTIC [id number] 02:22:00 Test Item Value Reference Range Interpretation Comments LACTIC ACID (test code = LACT) 1.3 mmol/L 0.4-1.9 N CBC W/AUTO [id number] 02:16:00 Test Item Value Reference Range Interpretation Comments WHITE BLOOD CELL (test code = 11.15 x10 3/uL 4.5-11.0 H WBC) RED BLOOD CELL (test code = 3.31 x10 6/uL 3.54-5.02 L RBC) HEMOGLOBIN (test code = HGB) 9.6 g/dL 11.0-15.0 L HEMATOCRIT (test code = HCT) 32.4 % 33.0-45.0 L MEAN CELL VOLUME (test code = 97.9 fL 81.0-99.0 N MCV) MEAN CELL HGB (test code = 29.0 pg 27.0-33.0 N MCH) MEAN CELL HGB CONCETRATION 29.6 g/dL 33.0-37.0 L (test code = MCHC) RED CELL DISTRIBUTION WIDTH CV 14.6 % 11.5-14.5 H (test code = RDW) RED CELL DISTRIBUTION WIDTH SD 53.0 fL 37.0-54.0 N (test code = RDW-SD) PLATELET COUNT (test code = 412 x10 3/uL 150-400 H PLT) MEAN PLATELET VOLUME (test 9.9 fL 7.0-9.0 H code = MPV) NEUTROPHIL % (test code = NT%) 79.1 % 56.0-77.0 H IMMATURE GRANULOCYTE % (test 0.5 % 0.0-2.0 N code = IG%) LYMPHOCYTE % (test code = LY%) 11.7 % 14.0-32.0 L MONOCYTE % (test code = MO%) 8.3 % 4.8-9.0 N EOSINOPHIL % (test code = EO%) 0.2 % 0.3-3.7 L BASOPHIL % (test code = BA%) 0.2 % 0.0-2.0 N NUCLEATED RBC % (test code = 0.0 % 0-0 N NRBC%) NEUTROPHIL # (test code = NT#) 8.83 x10 3/uL 2.0-7.6 H IMMATURE GRANULOCYTE # (test 0.06 x10 3/uL 0.00-0.03 H code = IG#) LYMPHOCYTE # (test code = LY#) 1.30 x10 3/uL 1.0-3.8 N MONOCYTE # (test code = MO#) 0.92 x10 3/uL 0.1-0.8 H EOSINOPHIL # (test code = EO#) 0.02 x10 3/uL 0.0-0.2 N BASOPHIL # (test code = BA#) 0.02 x10 3/uL 0.0-0.2 N NUCLEATED RBC # (test code = 0.00 x10 3/uL 0.0-0.1 N NRBC#) MANUAL DIFF REQUIRED (test NO code = MDIFF) ARTERIAL BLOOD [id number] 02:13:00 Test Item Value Reference Range Interpretation Comments ARTERIAL BLOOD GAS PH 7.312 7.35-7.45 L (test code = PHA) ARTERIAL BLOOD GAS 63.9 mmHg 35-45 H PCO2 (test code = PCO2A) ARTERIAL BLOOD GAS PO2 21 mmHg 80-100 LL (test code = PO2A) BICARBONATE TOTAL HCO3 32.4 mmol/L 22.0-26.0 H (test code = HCO3) BASE EXCESS (test code 6.0 mmol/L -4-4 H = EDUARD) ABG O2 SATURATION 29 % 90-100 L (test code = SATA) FIO2 (test code = % FIO2A) ABG DELIVERY (test Vent code = JULIA) ABG VENT MODE (test SIMV v con code = MODEA) ABG VENT RESP RATE 17 /MIN (test code = RRA) ABG TIDAL VOLUME (test 404 ml Perfo rmed by code = TVA) certified opera tor at [facility] ABG TEMPERATURE (test 98.0 F code = TEMPA) ABG SITE (test code = L Brach SITEA) TCO2 ARTERIAL (test 34 code = TCO2A) TROPONIN-I [id number] 02:00:00 Test Item Value Reference Range Interpretation Comments TROPONIN-I RAPID 0.04 ng/mL 0.00-0.08 N 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 Rather, the pat ient sclinical prese ntation (history, physi amari exam) and ECGshould b e used in conjunction wit h troponin in thediagnosti c evaluation of s uspected myocardial infa rction. Aserial samplin g protocol is recommended to facilitate the identification of temporal changes in trop onin levels characteristic of PA. - XR CHEST 1 [id number] 01:54:00 FAX: Wilmer Pillai MD [phone] [place]: St: REG Name: SUKI KOROMA [facility] : 1950 Age/S: 68/F [address] [place] [address] Blvd Unit#: [id number] Loc: JACK [place] [address] Phys: Wilmer Farris MD Acct: [id number] Dis Date: Status: REG ER PHONE #: [phone] Exam Date: 06/17/2019 0146 FAX #: [phone] Reason: SOB EXAMS: CPT CODE: [id number] XR CHEST 1 V [id number] Chest, single view dated 06/17/2019. HISTORY: Shortness of breath. Comparison is made to a prior study dated 05/25/2019. An endotracheal tube is present with the tip projecting approximately 4.6 cm above the shamir. A nasogastric tube is present with the tip projecting in the proximal stomach. A right subclavian central venous catheter is identified with the tip likely positioned in the azygosvein. There is no evidence of a pneumothorax. The heart is normal in size. Atherosclerotic calcification is identified in the aortic arch. Alveolar consolidation is identified in the right midlung. The left lung appears clear. The pulmonary vasculature is normal in caliber. No acute pleural space abnormalities are detected. IMPRESSION: 1. Alveolar consolidation in the right midlung, concerning for acute pneumonia. SL: 131 Electronically Signed by Alexa Zapien on 06/17/2019 at 0154 Reported and signed by: Tony Zapien M.D. CC: Wilmer Farris MD Technologist: RT Patrick(Tiffany) Trnscrd Date/Time/By: 06/17/2019 (015) : By: Jose Orig Print D/T: S: 06/17/2019 (0152) PAGE 1 Signed ReportCOMPREHENSIVE METABOLIC [id number] 16:27:00 Test Item Value Reference Range Interpretation Comments SODIUM (test code = NA) 135 mEq/L 134-147 N POTASSIUM (test code = 3.2 mEq/L 3.4-5.0 L K) CHLORIDE (test code = 93 mEq/L 100-108 L CL) CARBON DIOXIDE (test 37 mEq/L 21-33 H code = CO2) ANION GAP (test code = 8 0-20 N GAP) GLUCOSE (test code = 109 mg/dL 70-110 GLU) BLOOD UREA NITROGEN 18 mg/dL 7-18 N (test code = BUN) GLOMERULAR FILTRATION 49.1 70-80 L Units of measure = RATE (test code = GFR) ml/mi n/1.73 m2 CREATININE (test code = 1.1 mg/dL 0.6-1.3 N CREAT) TOTAL PROTEIN (test 7.0 g/dL 6.4-8.2 N code = PROT) ALBUMIN (test code = 3.10 g/dL 3.4-5.0 L ALB) CALCIUM (test code = 9.0 mg/dL 8.0-10.5 N CA) BILIRUBIN TOTAL (test 0.4 MG/DL <1.5 N code = BILT) SGOT/AST (test code = 20 IUnit/L 15-37 N AST) SGPT/ALT (test code = 33 IUnit/L 15-65 N ALT) ALKALINE PHOSPHATASE 54 IUnit/L 20-125 N TOTAL (test code = ALKP) COMPREHENSIVE METABOLIC [id number] 16:21:00 Test Item Value Reference Range Interpretation Comments SODIUM (test code = NA) 135 mEq/L 134-147 N POTASSIUM (test code = K) 3.2 mEq/L 3.4-5.0 L CHLORIDE (test code = CL) 93 mEq/L 100-108 L CARBON DIOXIDE (test code = CO2) 37 mEq/L 21-33 H ANION GAP (test code = GAP) 8 0-20 N GLUCOSE (test code = GLU) 109 mg/dL 70-110 BLOOD UREA NITROGEN (test code = 18 mg/dL 7-18 N BUN) GLOMERULAR FILTRATION RATE (test 70-80 code = GFR) CREATININE (test code = CREAT) mg/dL 0.6-1.3 TOTAL PROTEIN (test code = PROT) g/dL 6.4-8.2 ALBUMIN (test code = ALB) g/dL 3.4-5.0 CALCIUM (test code = CA) 9.0 mg/dL 8.0-10.5 N BILIRUBIN TOTAL (test code = BILT) MG/DL <1.5 SGOT/AST (test code = AST) IUnit/L 15-37 SGPT/ALT (test code = ALT) IUnit/L 15-65 ALKALINE PHOSPHATASE TOTAL (test IUnit/L 20-125 code = ALKP) CBC W/AUTO [id number] 16:11:00 Test Item Value Reference Range Interpretation Comments WHITE BLOOD CELL (test code = 12.42 x10 3/uL 4.5-11.0 H WBC) RED BLOOD CELL (test code = 3.77 x10 6/uL 3.54-5.02 N RBC) HEMOGLOBIN (test code = HGB) 11.2 g/dL 11.0-15.0 N HEMATOCRIT (test code = HCT) 35.3 % 33.0-45.0 N MEAN CELL VOLUME (test code = 93.6 fL 81.0-99.0 N MCV) MEAN CELL HGB (test code = 29.7 pg 27.0-33.0 N MCH) MEAN CELL HGB CONCETRATION 31.7 g/dL 33.0-37.0 L (test code = MCHC) RED CELL DISTRIBUTION WIDTH CV 15.6 % 11.5-14.5 H (test code = RDW) RED CELL DISTRIBUTION WIDTH SD 52.9 fL 37.0-54.0 N (test code = RDW-SD) PLATELET COUNT (test code = 480 x10 3/uL 150-400 H PLT) MEAN PLATELET VOLUME (test 9.6 fL 7.0-9.0 H code = MPV) NEUTROPHIL % (test code = NT%) 70.3 % 56.0-77.0 N IMMATURE GRANULOCYTE % (test 0.8 % 0.0-2.0 N code = IG%) LYMPHOCYTE % (test code = LY%) 20.6 % 14.0-32.0 N MONOCYTE % (test code = MO%) 6.8 % 4.8-9.0 N EOSINOPHIL % (test code = EO%) 1.3 % 0.3-3.7 N BASOPHIL % (test code = BA%) 0.2 % 0.0-2.0 N NUCLEATED RBC % (test code = 0.0 % 0-0 N NRBC%) NEUTROPHIL # (test code = NT#) 8.72 x10 3/uL 2.0-7.6 H IMMATURE GRANULOCYTE # (test 0.10 x10 3/uL 0.00-0.03 H code = IG#) LYMPHOCYTE # (test code = LY#) 2.56 x10 3/uL 1.0-3.8 N MONOCYTE # (test code = MO#) 0.85 x10 3/uL 0.1-0.8 H EOSINOPHIL # (test code = EO#) 0.16 x10 3/uL 0.0-0.2 N BASOPHIL # (test code = BA#) 0.03 x10 3/uL 0.0-0.2 N NUCLEATED RBC # (test code = 0.00 x10 3/uL 0.0-0.1 N NRBC#) MANUAL DIFF REQUIRED (test NO code = MDIFF) - [place] ACUTE GI BLOOD [id number] 13:24:00 FAX: Osiel Sagastume MD [phone] [place]: St: ADM FAX: Jose Lebron MD [phone] Name: SUKI KOROMA [facility] : 1950 Age/S: 68/F [address] [place] [address] Unit #: [id number] Loc: [address] [address] Phys: Osiel Small MD Acct: [id number] Dis Date: Status: ADM IN PHONE #: [phone] Exam Date: 05/29/2019 1151 FAX #: [phone] Reason: overt rectal bleeding EXAMS: CPT CODE: [id number] [place] ACUTE GI BLOOD LOSS 28596 PROCEDURE: NUCLEAR MEDICINE GI BLEEDING SCAN INDICATION: Rectal bleeding COMPARISON: None. TECHNIQUE: Tagged red blood cell scan is performed using 20 mCi of technetium 99m labeled RBCs, which was administered intravenously. IV Site: Left Antecu bital Dynamic imaging was performed in the frontal plane at 1 minute intervals for 60 minutes. FINDINGS: Physiologic blood pool activity. No abnormal foci of activity to suggest active GI bleeding. Delayed imaging can be performed for up to 24 hrs, if there is recurrent GI bleeding. IMPRESSION: Negative for active gastrointestinal bleeding. SL: [id number] at 1324 Reported and signed by: Gallito Espinoza D.O. CC: Osiel Small MD; Jose Garcia MD Technologist: Coco Simms, RT(N)(CT)(PET); ... Trnscrd Date/Time/By: 05/29/2019 (3787) : By: [email or web address] Orig Print D/T: S: 05/29/2019 (5215)PAGE 1 Signed Report [id number] 10:54:00 Test Item Value Reference Range Interpretation Comments FERRITIN (test code = ISABELLA) 147.7 ng/mL 11.0-306.8 N RETIC COUNT (AUTOMATED)2019-05-29 10:39:00 Test Item Value Reference Range Interpretation Comments RETIC COUNT (AUTOMATED) (test code = 3.7 % 0.3-2.3 H RETICA) CBC W/AUTO [id number] 10:07:00 Test Item Value Reference Range Interpretation Comments WHITE BLOOD CELL (test code = 8.64 x10 3/uL 4.5-11.0 N WBC) RED BLOOD CELL (test code = 3.64 x10 6/uL 3.54-5.02 N RBC) HEMOGLOBIN (test code = HGB) 10.7 g/dL 11.0-15.0 L HEMATOCRIT (test code = HCT) 34.9 % 33.0-45.0 N MEAN CELL VOLUME (test code = 95.9 fL 81.0-99.0 N MCV) MEAN CELL HGB (test code = MCH) 29.4 pg 27.0-33.0 N MEAN CELL HGB CONCETRATION 30.7 g/dL 33.0-37.0 L (test code = MCHC) RED CELL DISTRIBUTION WIDTH CV 15.9 % 11.5-14.5 H (test code = RDW) RED CELL DISTRIBUTION WIDTH SD 54.8 fL 37.0-54.0 H (test code = RDW-SD) PLATELET COUNT (test code = 482 x10 3/uL 150-400 H PLT) MEAN PLATELET VOLUME (test code 9.9 fL 7.0-9.0 H = MPV) NEUTROPHIL % (test code = NT%) 60.0 % 56.0-77.0 N IMMATURE GRANULOCYTE % (test 1.3 % 0.0-2.0 N code = IG%) LYMPHOCYTE % (test code = LY%) 29.1 % 14.0-32.0 N MONOCYTE % (test code = MO%) 7.2 % 4.8-9.0 N EOSINOPHIL % (test code = EO%) 2.1 % 0.3-3.7 N BASOPHIL % (test code = BA%) 0.3 % 0.0-2.0 N NUCLEATED RBC % (test code = 0.0 % 0-0 N NRBC%) NEUTROPHIL # (test code = NT#) 5.19 x10 3/uL 2.0-7.6 N IMMATURE GRANULOCYTE # (test 0.11 x10 3/uL 0.00-0.03 H code = IG#) LYMPHOCYTE # (test code = LY#) 2.51 x10 3/uL 1.0-3.8 N MONOCYTE # (test code = MO#) 0.62 x10 3/uL 0.1-0.8 N EOSINOPHIL # (test code = EO#) 0.18 x10 3/uL 0.0-0.2 N BASOPHIL # (test code = BA#) 0.03 x10 3/uL 0.0-0.2 N NUCLEATED RBC # (test code = 0.00 x10 3/uL 0.0-0.1 N NRBC#) MANUAL DIFF REQUIRED (test code NO = MDIFF) BASIC METABOLIC [id number] 07:39:00 Test Item Value Reference Range Interpretation Comments SODIUM (test code = NA) 137 mEq/L 134-147 N POTASSIUM (test code = 3.4 mEq/L 3.4-5.0 N K) CHLORIDE (test code = 97 mEq/L 100-108 L CL) CARBON DIOXIDE (test 35 mEq/L 21-33 H code = CO2) ANION GAP (test code = 8 0-20 N GAP) GLUCOSE (test code = 77 mg/dL 70-110 N GLU) BLOOD UREA NITROGEN 19 mg/dL 7-18 H (test code = BUN) GLOMERULAR FILTRATION 54.8 70-80 L Units of measure = RATE (test code = GFR) ml/mi n/1.73 m2 CREATININE (test code = 1.0 mg/dL 0.6-1.3 N CREAT) CALCIUM (test code = 8.8 mg/dL 8.0-10.5 N CA) CBC W/AUTO [id number] 09:12:00 Test Item Value Reference Range Interpretation Comments WHITE BLOOD CELL (test code = 8.95 x10 3/uL 4.5-11.0 N WBC) RED BLOOD CELL (test code = 3.62 x10 6/uL 3.54-5.02 N RBC) HEMOGLOBIN (test code = HGB) 10.7 g/dL 11.0-15.0 L HEMATOCRIT (test code = HCT) 34.7 % 33.0-45.0 N MEAN CELL VOLUME (test code = 95.9 fL 81.0-99.0 N MCV) MEAN CELL HGB (test code = MCH) 29.6 pg 27.0-33.0 N MEAN CELL HGB CONCETRATION 30.8 g/dL 33.0-37.0 L (test code = MCHC) RED CELL DISTRIBUTION WIDTH CV 15.6 % 11.5-14.5 H (test code = RDW) RED CELL DISTRIBUTION WIDTH SD 54.0 fL 37.0-54.0 N (test code = RDW-SD) PLATELET COUNT (test code = 490 x10 3/uL 150-400 H PLT) MEAN PLATELET VOLUME (test code 9.7 fL 7.0-9.0 H = MPV) NEUTROPHIL % (test code = NT%) 62.2 % 56.0-77.0 N IMMATURE GRANULOCYTE % (test 1.5 % 0.0-2.0 N code = IG%) LYMPHOCYTE % (test code = LY%) 27.2 % 14.0-32.0 N MONOCYTE % (test code = MO%) 7.0 % 4.8-9.0 N EOSINOPHIL % (test code = EO%) 1.8 % 0.3-3.7 N BASOPHIL % (test code = BA%) 0.3 % 0.0-2.0 N NUCLEATED RBC % (test code = 0.3 % 0-0 H NRBC%) NEUTROPHIL # (test code = NT#) 5.57 x10 3/uL 2.0-7.6 N IMMATURE GRANULOCYTE # (test 0.13 x10 3/uL 0.00-0.03 H code = IG#) LYMPHOCYTE # (test code = LY#) 2.43 x10 3/uL 1.0-3.8 N MONOCYTE # (test code = MO#) 0.63 x10 3/uL 0.1-0.8 N EOSINOPHIL # (test code = EO#) 0.16 x10 3/uL 0.0-0.2 N BASOPHIL # (test code = BA#) 0.03 x10 3/uL 0.0-0.2 N NUCLEATED RBC # (test code = 0.03 x10 3/uL 0.0-0.1 N NRBC#) MANUAL DIFF REQUIRED (test code NO = MDIFF) BASIC METABOLIC [id number] 08:43:00 Test Item Value Reference Range Interpretation Comments SODIUM (test code = NA) 138 mEq/L 134-147 N POTASSIUM (test code = 4.1 mEq/L 3.4-5.0 N K) CHLORIDE (test code = 100 mEq/L 100-108 N CL) CARBON DIOXIDE (test 33 mEq/L 21-33 code = CO2) ANION GAP (test code = 9 0-20 N GAP) GLUCOSE (test code = 91 mg/dL 70-110 N GLU) BLOOD UREA NITROGEN 20 mg/dL 7-18 H (test code = BUN) GLOMERULAR FILTRATION 54.8 70-80 L Units of measure = RATE (test code = GFR) ml/mi n/1.73 m2 CREATININE (test code = 1.0 mg/dL 0.6-1.3 N CREAT) CALCIUM (test code = 9.1 mg/dL 8.0-10.5 N CA) [id number] 08:43:00 Test Item Value Reference Range Interpretation Comments PHOSPHOROUS (test code = PHOS) 3.7 MG/DL 2.5-4.9 N [id number] 08:43:00 Test Item Value Reference Range Interpretation Comments MAGNESIUM (test code = MAG) 2.30 mg/dL 1.8-2.4 N CALCIUM [id number] 08:43:00 Test Item Value Reference Range Interpretation Comments CALCIUM IONIZED (test code = JOSS) 1.21 MMOL/L 1.12-1.32 N BASIC METABOLIC [id number] 08:40:00 Test Item Value Reference Range Interpretation Comments SODIUM (test code = NA) 138 mEq/L 134-147 N POTASSIUM (test code = K) 4.1 mEq/L 3.4-5.0 N CHLORIDE (test code = CL) 100 mEq/L 100-108 N CARBON DIOXIDE (test code = CO2) 33 mEq/L 21-33 ANION GAP (test code = GAP) 9 0-20 N GLUCOSE (test code = GLU) 91 mg/dL 70-110 N BLOOD UREA NITROGEN (test code = 20 mg/dL 7-18 H BUN) GLOMERULAR FILTRATION RATE (test 70-80 code = GFR) CREATININE (test code = CREAT) mg/dL 0.6-1.3 CALCIUM (test code = CA) 9.1 mg/dL 8.0-10.5 N [id number] 08:40:00 Test Item Value Reference Range Interpretation Comments PHOSPHOROUS (test code = PHOS) MG/DL 2.5-4.9 [id number] 08:40:00 Test Item Value Reference Range Interpretation Comments MAGNESIUM (test code = MAG) 2.30 mg/dL 1.8-2.4 N CALCIUM [id number] 08:40:00 Test Item Value Reference Range Interpretation Comments CALCIUM IONIZED (test code = JOSS) 1.21 MMOL/L 1.12-1.32 N BASIC METABOLIC [id number] 08:29:00 Test Item Value Reference Range Interpretation Comments SODIUM (test code = NA) mEq/L 134-147 POTASSIUM (test code = K) mEq/L 3.4-5.0 CHLORIDE (test code = CL) mEq/L 100-108 CARBON DIOXIDE (test code = CO2) mEq/L 21-33 ANION GAP (test code = GAP) 0-20 GLUCOSE (test code = GLU) mg/dL 70-110 BLOOD UREA NITROGEN (test code = BUN) mg/dL 7-18 GLOMERULAR FILTRATION RATE (test code 70-80 = GFR) CREATININE (test code = CREAT) mg/dL 0.6-1.3 CALCIUM (test code = CA) mg/dL 8.0-10.5 [id number] 08:29:00 Test Item Value Reference Range Interpretation Comments PHOSPHOROUS (test code = PHOS) MG/DL 2.5-4.9 [id number] 08:29:00 Test Item Value Reference Range Interpretation Comments MAGNESIUM (test code = MAG) mg/dL 1.8-2.4 CALCIUM [id number] 08:29:00 Test Item Value Reference Range Interpretation Comments CALCIUM IONIZED (test code = JOSS) 1.21 MMOL/L 1.12-1.32 N CBC W/AUTO [id number] 06:20:00 Test Item Value Reference Range Interpretation Comments WHITE BLOOD CELL (test code = 9.15 x10 3/uL 4.5-11.0 N WBC) RED BLOOD CELL (test code = 3.12 x10 6/uL 3.54-5.02 L RBC) HEMOGLOBIN (test code = HGB) 9.1 g/dL 11.0-15.0 L HEMATOCRIT (test code = HCT) 29.9 % 33.0-45.0 L MEAN CELL VOLUME (test code = 95.8 fL 81.0-99.0 N MCV) MEAN CELL HGB (test code = MCH) 29.2 pg 27.0-33.0 N MEAN CELL HGB CONCETRATION 30.4 g/dL 33.0-37.0 L (test code = MCHC) RED CELL DISTRIBUTION WIDTH CV 16.5 % 11.5-14.5 H (test code = RDW) RED CELL DISTRIBUTION WIDTH SD 58.1 fL 37.0-54.0 H (test code = RDW-SD) PLATELET COUNT (test code = 384 x10 3/uL 150-400 N PLT) MEAN PLATELET VOLUME (test code 10.3 fL 7.0-9.0 H = MPV) NEUTROPHIL % (test code = NT%) 79.9 % 56.0-77.0 H IMMATURE GRANULOCYTE % (test 1.0 % 0.0-2.0 N code = IG%) LYMPHOCYTE % (test code = LY%) 12.8 % 14.0-32.0 L MONOCYTE % (test code = MO%) 6.2 % 4.8-9.0 N EOSINOPHIL % (test code = EO%) 0.0 % 0.3-3.7 L BASOPHIL % (test code = BA%) 0.1 % 0.0-2.0 N NUCLEATED RBC % (test code = 0.0 % 0-0 N NRBC%) NEUTROPHIL # (test code = NT#) 7.31 x10 3/uL 2.0-7.6 N IMMATURE GRANULOCYTE # (test 0.09 x10 3/uL 0.00-0.03 H code = IG#) LYMPHOCYTE # (test code = LY#) 1.17 x10 3/uL 1.0-3.8 N MONOCYTE # (test code = MO#) 0.57 x10 3/uL 0.1-0.8 N EOSINOPHIL # (test code = EO#) 0.00 x10 3/uL 0.0-0.2 N BASOPHIL # (test code = BA#) 0.01 x10 3/uL 0.0-0.2 N NUCLEATED RBC # (test code = 0.00 x10 3/uL 0.0-0.1 N NRBC#) MANUAL DIFF REQUIRED (test code NO = MDIFF) - XR CHEST 1 [id number] 09:25:00 FAX: Maggie Cook NP [phone] [place]: St: ADM FAX: Jose Lebron MD [phone] Name: FRANCISUKI HERRERA [facility] : 1950 Age/S: 68/F [address] [place] [address] Unit #: [id number] Loc: G.M318 [place] [address] Phys: Maggie Cook NP Acct: G [id number] Dis Date: Status: ADM IN PHONE #: [phone] Exam Date: 05/25/2019 05 FAX #: [phone] Reason: RESP FAILURE EXAMS: CPT CODE: [id number] XR CHEST 1 V 51920 CLINICAL HISTORY:RESP FAILURE COMPARISON:May 24, 2019 at 0344 Frontal film of the chest performed at 0513 on May 25, 2019 demonstrates monitor leads in place. Heart size is stable. Lung sahu demonstrate no evidence of pneumonia or congestive failure. Previously noted congestion is not seen on current examination. IMPRESSION:No evidence of pneumonia or congestive failure is seen. at 0925 Reported and signed by: Jian Frederick M.D. CC: Maggie Cook MANAGER INVENTORY CONTROL; Jose Garcia MD Technologist: RT Woodrow(Tiffany) Trnscrd Date/Time/By: 05/25/2019 (924) : By: [email or web address] Orig Print D/T: S: 05/25/2019 (927) PAGE 1 Signed ReportBASIC METABOLIC [id number] 07:09:00 Test Item Value Reference Range Interpretation Comments SODIUM (test code = NA) 136 mEq/L 134-147 N POTASSIUM (test code = 4.7 mEq/L 3.4-5.0 K) CHLORIDE (test code = 102 mEq/L 100-108 N CL) CARBON DIOXIDE (test 25 mEq/L 21-33 N code = CO2) ANION GAP (test code = 14 0-20 N GAP) GLUCOSE (test code = 103 mg/dL 70-110 GLU) BLOOD UREA NITROGEN 18 mg/dL 7-18 (test code = BUN) GLOMERULAR FILTRATION 49.1 70-80 L Units of measure = RATE (test code = GFR) ml/mi n/1.73 m2 CREATININE (test code = 1.1 mg/dL 0.6-1.3 N CREAT) CALCIUM (test code = 8.0 mg/dL 8.0-10.5 N CA) [id number] 07:09:00 Test Item Value Reference Range Interpretation Comments PHOSPHOROUS (test code = PHOS) 3.7 MG/DL 2.5-4.9 N [id number] 07:09:00 Test Item Value Reference Range Interpretation Comments MAGNESIUM (test code = MAG) 2.00 mg/dL 1.8-2.4 N CALCIUM [id number] 07:09:00 Test Item Value Reference Range Interpretation Comments CALCIUM IONIZED (test code = JOSS) 1.01 MMOL/L 1.12-1.32 L BASIC METABOLIC [id number] 07:05:00 Test Item Value Reference Range Interpretation Comments SODIUM (test code = NA) mEq/L 134-147 POTASSIUM (test code = K) mEq/L 3.4-5.0 CHLORIDE (test code = CL) mEq/L 100-108 CARBON DIOXIDE (test code = CO2) mEq/L 21-33 ANION GAP (test code = GAP) 0-20 GLUCOSE (test code = GLU) mg/dL 70-110 BLOOD UREA NITROGEN (test code = BUN) mg/dL 7-18 GLOMERULAR FILTRATION RATE (test code 70-80 = GFR) CREATININE (test code = CREAT) mg/dL 0.6-1.3 CALCIUM (test code = CA) mg/dL 8.0-10.5 [id number] 07:05:00 Test Item Value Reference Range Interpretation Comments PHOSPHOROUS (test code = PHOS) MG/DL 2.5-4.9 [id number] 07:05:00 Test Item Value Reference Range Interpretation Comments MAGNESIUM (test code = MAG) mg/dL 1.8-2.4 CALCIUM [id number] 07:05:00 Test Item Value Reference Range Interpretation Comments CALCIUM IONIZED (test code = JOSS) 1.01 MMOL/L 1.12-1.32 L CBC W/AUTO [id number] 06:23:00 Test Item Value Reference Range Interpretation Comments WHITE BLOOD CELL (test code = 11.46 x10 3/uL 4.5-11.0 H WBC) RED BLOOD CELL (test code = 2.78 x10 6/uL 3.54-5.02 L RBC) HEMOGLOBIN (test code = HGB) 8.1 g/dL 11.0-15.0 L HEMATOCRIT (test code = HCT) 27.0 % 33.0-45.0 L MEAN CELL VOLUME (test code = 97.1 fL 81.0-99.0 MCV) MEAN CELL HGB (test code = 29.1 pg 27.0-33.0 N MCH) MEAN CELL HGB CONCETRATION 30.0 g/dL 33.0-37.0 L (test code = MCHC) RED CELL DISTRIBUTION WIDTH CV 16.5 % 11.5-14.5 H (test code = RDW) RED CELL DISTRIBUTION WIDTH SD 59.7 fL 37.0-54.0 H (test code = RDW-SD) PLATELET COUNT (test code = 351 x10 3/uL 150-400 N PLT) MEAN PLATELET VOLUME (test 10.6 fL 7.0-9.0 H code = MPV) NEUTROPHIL % (test code = NT%) 86.9 % 56.0-77.0 H IMMATURE GRANULOCYTE % (test 0.4 % 0.0-2.0 N code = IG%) LYMPHOCYTE % (test code = LY%) 7.2 % 14.0-32.0 L MONOCYTE % (test code = MO%) 5.5 % 4.8-9.0 N EOSINOPHIL % (test code = EO%) 0.0 % 0.3-3.7 L BASOPHIL % (test code = BA%) 0.0 % 0.0-2.0 N NUCLEATED RBC % (test code = 0.0 % 0-0 N NRBC%) NEUTROPHIL # (test code = NT#) 9.95 x10 3/uL 2.0-7.6 H IMMATURE GRANULOCYTE # (test 0.05 x10 3/uL 0.00-0.03 H code = IG#) LYMPHOCYTE # (test code = LY#) 0.83 x10 3/uL 1.0-3.8 L MONOCYTE # (test code = MO#) 0.63 x10 3/uL 0.1-0.8 N EOSINOPHIL # (test code = EO#) 0.00 x10 3/uL 0.0-0.2 N BASOPHIL # (test code = BA#) 0.00 x10 3/uL 0.0-0.2 N NUCLEATED RBC # (test code = 0.00 x10 3/uL 0.0-0.1 N NRBC#) MANUAL DIFF REQUIRED (test NO code = MDIFF) ARTERIAL BLOOD [id number] 15:55:00 Test Item Value Reference Range Interpretation Comments ARTERIAL BLOOD GAS PH (test code 7.434 7.35-7.45 N = PHA) ARTERIAL BLOOD GAS PCO2 (test 48.0 mmHg 35-45 H code = PCO2A) ARTERIAL BLOOD GAS PO2 (test code 100 mmHg 80-100 N = PO2A) BICARBONATE TOTAL HCO3 (test code 32.2 mmol/L 22.0-26.0 H = HCO3) BASE EXCESS (test code = EDUARD) 8.0 mmol/L -4-4 H ABG O2 SATURATION (test code = 98 % 90-100 N SATA) ABG DELIVERY (test code = JULIA) Cannula ABG TEMPERATURE (test code = 98.6 F TEMPA) ABG SITE (test code = SITEA) R Rad TCO2 ARTERIAL (test code = TCO2A) 34 - XR CHEST 1 [id number] 08:19:00 FAX: Maggie Cook NP [phone] [place]: St: [facility] [place] FAX: Jose Lebron MD [phone] Name: SUKI KOROMA [facility] : 1950 Age/S: 68/F [address] [place] [address] Unit #: [id number] Loc: G.M318 [place] [address] Phys: Maggie Cook NP Acct: G [id number] Dis Date: Status: ADM IN PHONE #: [phone] Exam Date: 05/24/2019417 FAX #: [phone] Reason: resp failure EXAMS: CPT CODE: [id number] XR CHEST 1 V 52721 Clinical Indication: Respiratory failure. Comparison: 05/23/2019. Impression: Chest, singleview. Endotracheal tube extends to the level of the shamir, but appears unchanged from prior. NG tube is in place and courses inferiorly out of the otgjn-lu-flah. Cardiac silh ouette is enlarged. Bilateral pulmonary vascular congestion. Trace pleural fluid bilaterally. No pneumothorax. No acute osseous abnormality. SL: [id number] at 0819 Reported and signed by: Casandra Crump M.D. CC: Maggie Cook MANAGER INVENTORY CONTROL; Jose Garcia MD Technologist: Keon Mccord, RT[facility] Date/Time/By: 05/24/2019 (818) : By: [email or web address] OrigPrint D/T: S: 05/24/2019 (821) PAGE 1 Signed Report- DUP VEIN [id number] 08:12:00 Name: SUKI KOROMA [facility] : 1950 Age/S: 68 / F [address] [place] [address] Unit #: [id number] Loc: [place] [id number] Phys: Wade Hdz MD Acct: [id number] Dis Date: Status: ADM IN PHONE #: [phone] Exam Date: 05/24/2019 06 FAX #: [phone] Reason: R/O THROMBI EXAMS: CPTCODE: [id number] DUP VEIN TITI 43743 Clinical Indication: Shortness of breath; Comparison: None TECHNIQUE: Sonographic evaluation of the bilateral lower extremity veins was performed using high resolution B-mode imaging, along with pulse and color Doppler imaging. FINDINGS: Right lower ex tremity: The common femoral vein, femoral vein, popliteal vein and visualized posteriortibial/calf veins are patent. There is no echogenic debris to suggest deep venous thrombosis.The saphenofemoral junction is unremarkable. Left lower extremity: The common femoral vein, femoral vein, popliteal vein and visualized posterior tibial/calf veins are patent. There is no echogenic debris to suggest deep venous thrombosis. The saphenofemoral junction is unremarkable. IMPRESSION: No deep venous thrombosis of the lower extremities. SL: [id number] at 0812 Reported and signed by: Casandra Crump M.D. CC: Wade Hdz MD; Jose Garcia MD Technologist: Lila Browning RDMS(A)(OB) Trnscb Date/Time: 05/24/2019 (811) [id number] Orig Print D/T: S: 05/24/2019 (814) Probe: PAGE 1 Signed ReportBASIC METABOLIC [id number] 05:34:00 Test Item Value Reference Range Interpretation Comments SODIUM (test code = NA) 136 mEq/L 134-147 N POTASSIUM (test code = 3.8 mEq/L 3.4-5.0 N K) CHLORIDE (test code = 100 mEq/L 100-108 N CL) CARBON DIOXIDE (test 31 mEq/L 21-33 N code = CO2) ANION GAP (test code = 9 0-20 N GAP) GLUCOSE (test code = 180 mg/dL 70-110 H GLU) BLOOD UREA NITROGEN 14 mg/dL 7-18 N (test code = BUN) GLOMERULAR FILTRATION 54.8 70-80 L Units of measure = RATE (test code = GFR) ml/mi n/1.73 m2 CREATININE (test code = 1.0 mg/dL 0.6-1.3 N CREAT) CALCIUM (test code = 8.9 mg/dL 8.0-10.5 N CA) [id number] 05:34:00 Test Item Value Reference Range Interpretation Comments PHOSPHOROUS (test code = PHOS) 3.8 MG/DL 2.5-4.9 N [id number] 05:34:00 Test Item Value Reference Range Interpretation Comments MAGNESIUM (test code = MAG) 2.00 mg/dL 1.8-2.4 N CALCIUM [id number] 05:34:00 Test Item Value Reference Range Interpretation Comments CALCIUM IONIZED (test code = JOSS) 1.16 MMOL/L 1.12-1.32 N CBC W/AUTO [id number] 05:22:00 Test Item Value Reference Range Interpretation Comments WHITE BLOOD CELL (test code = 6.89 x10 3/uL 4.5-11.0 N WBC) RED BLOOD CELL (test code = 3.20 x10 6/uL 3.54-5.02 L RBC) HEMOGLOBIN (test code = HGB) 9.4 g/dL 11.0-15.0 L HEMATOCRIT (test code = HCT) 30.1 % 33.0-45.0 L MEAN CELL VOLUME (test code = 94.1 fL 81.0-99.0 N MCV) MEAN CELL HGB (test code = MCH) 29.4 pg 27.0-33.0 N MEAN CELL HGB CONCETRATION 31.2 g/dL 33.0-37.0 L (test code = MCHC) RED CELL DISTRIBUTION WIDTH CV 15.6 % 11.5-14.5 H (test code = RDW) RED CELL DISTRIBUTION WIDTH SD 54.2 fL 37.0-54.0 H (test code = RDW-SD) PLATELET COUNT (test code = 324 x10 3/uL 150-400 N PLT) MEAN PLATELET VOLUME (test code 10.6 fL 7.0-9.0 H = MPV) NEUTROPHIL % (test code = NT%) 90.4 % 56.0-77.0 H IMMATURE GRANULOCYTE % (test 0.6 % 0.0-2.0 N code = IG%) LYMPHOCYTE % (test code = LY%) 7.4 % 14.0-32.0 L MONOCYTE % (test code = MO%) 1.5 % 4.8-9.0 L EOSINOPHIL % (test code = EO%) 0.0 % 0.3-3.7 L BASOPHIL % (test code = BA%) 0.1 % 0.0-2.0 N NUCLEATED RBC % (test code = 0.0 % 0-0 N NRBC%) NEUTROPHIL # (test code = NT#) 6.23 x10 3/uL 2.0-7.6 N IMMATURE GRANULOCYTE # (test 0.04 x10 3/uL 0.00-0.03 H code = IG#) LYMPHOCYTE # (test code = LY#) 0.51 x10 3/uL 1.0-3.8 L MONOCYTE # (test code = MO#) 0.10 x10 3/uL 0.1-0.8 N EOSINOPHIL # (test code = EO#) 0.00 x10 3/uL 0.0-0.2 N BASOPHIL # (test code = BA#) 0.01 x10 3/uL 0.0-0.2 N NUCLEATED RBC # (test code = 0.00 x10 3/uL 0.0-0.1 N NRBC#) MANUAL DIFF REQUIRED (test code NO = MDIFF) BASIC METABOLIC [id number] 05:19:00 Test Item Value Reference Range Interpretation Comments SODIUM (test code = NA) mEq/L 134-147 POTASSIUM (test code = K) mEq/L 3.4-5.0 CHLORIDE (test code = CL) mEq/L 100-108 CARBON DIOXIDE (test code = CO2) mEq/L 21-33 ANION GAP (test code = GAP) 0-20 GLUCOSE (test code = GLU) mg/dL 70-110 BLOOD UREA NITROGEN (test code = BUN) mg/dL 7-18 GLOMERULAR FILTRATION RATE (test code 70-80 = GFR) CREATININE (test code = CREAT) mg/dL 0.6-1.3 CALCIUM (test code = CA) mg/dL 8.0-10.5 [id number] 05:19:00 Test Item Value Reference Range Interpretation Comments PHOSPHOROUS (test code = PHOS) MG/DL 2.5-4.9 [id number] 05:19:00 Test Item Value Reference Range Interpretation Comments MAGNESIUM (test code = MAG) mg/dL 1.8-2.4 CALCIUM [id number] 05:19:00 Test Item Value Reference Range Interpretation Comments CALCIUM IONIZED (test code = JOSS) 1.16 MMOL/L 1.12-1.32 N ARTERIAL BLOOD [id number] 04:38:00 Test Item Value Reference Range Interpretation Comments ARTERIAL BLOOD GAS PH 7.414 7.35-7.45 N (test code = PHA) ARTERIAL BLOOD GAS 49.8 mmHg 35-45 H PCO2 (test code = PCO2A) ARTERIAL BLOOD GAS PO2 72 mmHg 80-100 L (test code = PO2A) BICARBONATE TOTAL HCO3 32.0 mmol/L 22.0-26.0 H (test code = HCO3) BASE EXCESS (test code 7.0 mmol/L -4-4 H = EDUARD) ABG O2 SATURATION 95 % 90-100 N (test code = SATA) FIO2 (test code = 45 % FIO2A) ABG DELIVERY (test Vent code = JULIA) ABG VENT MODE (test AC v con code = MODEA) ABG VENT RESP RATE 16 /MIN (test code = RRA) ABG TIDAL VOLUME (test 450 ml code = TVA) ABG PEEP (test code = 5 cmH2O Perfor med by PEEPA) certified opera tor at [facility] ABG TEMPERATURE (test 97.5 F code = TEMPA) ABG SITE (test code = L Rad SITEA) PREDICTED AA GRADIENT 67 (test code = AP) PREDICTED PO2 (test 193 code = OP) a/A RATIO (test code = 0.28 RATIO) TCO2 ARTERIAL (test 34 code = TCO2A) A-A GRADIENT (test 189 code = AAGRADE) RESPIRATORY VIRUS PANEL [id number] 01:10:00 Test Item Value Reference Interpretation Comments Range RSV A PCR (test Negative Negative code = RSV A) RSV B PCR (test Negative Negative code = RSV B) INFLUENZA A (test Negative Negative code = FLUAPCR) INFLUENZA A SUBTYPE Negative Negative H1 (test code = FLUAH1) INFLUENZA A SUBTYPE Negative Negative H3 (test code = FLUAH3) INFLUENZA B (test Negative Negative code = FLUBPCR) PARAINFLUENZA TYPE Negative Negative 1 PCR (test code = PIF1) PARAINFLUENZA TYPE Negative Negative 2 PCR (test code = PIF2) PARAINFLUENZA TYPE Negative Negative 3 PCR (test code = PIF3) PARAINFLUENZA TYPE Negative Negative 4 PCR (test code = PIF4) RHINOVIRUS PCR Negative Negative (test code = RHINO) METAPNEUMOVIRUS PCR Negative Negative (test code = METAPNEU) ADENOVIRUS PCR Negative Negative (test code = ADENOPCR) BORDETELLA Negative Negative PERTUSSIS DNA PCR (test code = BORDPERDNA) B PARAPERTUSSIS BY Negative Negative PCR (test code = BPARAPCR) BORDETELLA HOLMESII Negative Negative Testing was performed (test code = using nucleic a mehnaz BORDHOLM) amplificationin cluding Bordetella parapertussis/b rochiseptic a, Bordetella h olmesii, and Bordetella pertussis. COMPLEMENT BETA C1 RVP Comment Comment Testing w as performed (test code = using nucleic a mehnaz COMBC1) amplificationin cluding influenza A, in fluenza A H1, influenza A H3,influenza B, RSV-A, RSV-B, Adenovir us, HumanMetapneumo virus, Parainfluenza 1 ,2,3 and 4, Rhinovirus, Bor detella parapertussis/b rochiseptic a, Bordetella h olmesii, and Bordetella pertussis. - CT HEAD/BRAIN W/O [id number] 23:29:00 Name: SUKI KOROMA [facility] : 1950 Age/S: 68 / F [address] [place] [address] Unit #: [id number] Loc: [place] [id number] Phys: Umesh Patton DO Acct: [id number] Dis Date: Status: ADM IN PHONE #: [phone] Exam Date: 05/23/20192322 FAX #: [phone] Reason: AMS per outside hospital EXAMS: CPTCODE: [id number] CT HEAD/BRAIN W/O CONT [id number] EXAM: CT, CT HEAD/BRAIN W/O CONTRAST: 05/23/2019, 2314 hours HISTORY: AMS per outside hospital COMPARISON: None available. TECHNIQUE: CT images were obtained from the huang en magnum to the vertex without the use of intravenous contrast on a multidetector CT. CT imaging was performed with exposure control parameters to reduce radiation dose. Coronal and sagittal reconstructions were obtained. CT radiation dose DLP: 472.16 mGy-cm FINDINGS: Beam hardening artifact limits the optimal evaluation of base of brain and posterior fossa. BRAIN PARENCHYMA: Mild generalized brain atrophy seen. Mild low attenuation in the periventricular white matter suggestive of mild chronic small vessel ischemic changes. No focal mass lesions on this noncontrast head CT. No mass effect, midline shiftor edema. There are no intra-axial or extra-axial fluid collections, intraventricular or intraparenchymal hemorrhage. No low attenuation demarcating areas on this non-contrast CT to suggest subacute stroke. VENTRICLES: The lateral ventricles, third and fourth ventricles appear unremarkable. The basilar cisterns are normal. ORBITS, MASTOIDS AND PARANASAL SINUSES: The visualized orbits are unremarkable. The visualized paranasal sinuses are unremarkable. The mastoid air cells are clear. SKULL: There are no osseous abnormalities. If there is further concern for intracranial pathology or acute stroke, MRI of the brain may be performed for complete assessment. IMPRESSION: 1. No acute intracranial abnormality. No noncontrast CT evidence of mass, acute he morrhage or subacute stroke. SL: JSYED-H PAGE 1 Signed Report (CONTINUED) Name: SUKI KOROMA [facility] Patrick : 1950 Age/S: 68 / F [address] [place] [address] Unit #: [id number] Loc: [place] [address] Phys: Umesh Patton Acct: [id number] Dis Date: Status: ADM IN PHONE #: [phone] Exam Date: 05/23/20192322 FAX #: [phone] Reason: AMS per outside hospital EXAMS: CPT CODE: [id number] CT HEAD/BRAIN W/O CONT 21051 <Continued> Electronically Signed by Alexa Del Real on05/23/2019 at 2329 Reported and signed by: Edgard Del Real M.D. CC: Umesh Patton DO Technologist:Radha Dumont, RT(R) CTDI: DLP: Trnscb Date/Time: 05/23/2019 (9083) [email or web address] Orig Print D/T: S: 05/23/2019 (1060) PAGE 2 Signed ReportLIPID PROFILE (CORONARY RISK)2019-05-23 12:30:00 Test Item Value Reference Range Interpretation Comments TRIGLYCERIDES (test 1187 mg/dL 40-150 H code = TRIG) CHOLESTEROL (test 71 mg/dL <200 code = CHOL) CHOLESTEROL/HDL 3.55 RATIO 3.27-4.44 N RISK ASSOCIA ALDEN WITH RATIO (test code = CHOL/HDL RATIOS: RISK CHOLHDL) MALE FEMALE1/2 AVERA GE 3.43 3.27AVERAGE 4.97 4.4 42X AVERAGE 9.55 7.053X AVER AGE 23.39 1 1.04 NOTE THAT THE R EFERENCE VALUE IS RELATE DTO RISK LEVELS RECOM MENDED BY THE NATL.HEA RT, LUNG, AND BLOOD INST. HDL CHOLESTEROL 20.0 mg/dL 39-96 L (test code = HDL) LIPOPROTEIN LDL 45 mg/dL 0-100 N <100 OPT [id number] (test code = LDL) NEAR OPTI MAL/ABOVE [id number] 89 HIGH>SF=159 VE RY HIGH*Guidelines provided by the National Choles terol EducationProgra m Adult Treatment Panel III [id number] 12:30:00 Test Item Value Reference Range Interpretation Comments TROPONIN-I < 0.015 ng/mL 0.000-0.045 N Negative: <= (test code = 0.045 Positive: TROPI) >= 0.046 Correl ation with serial results, other cardiac markers andclinical findings is nec essary to determine the clinicalsignifi cance of this result. Results using different metho dologies should not be c omparedto one another as mercy titative results may [place] y by method. LIPID PROFILE (CORONARY RISK)2019-05-23 12:25:00 Test Item Value Reference Range Interpretation Comments TRIGLYCERIDES (test mg/dL 40-150 code = TRIG) CHOLESTEROL (test 71 mg/dL <200 code = CHOL) CHOLESTEROL/HDL 3.55 RATIO 3.27-4.44 N RISK ASSOCIA ALDEN WITH RATIO (test code = CHOL/HDL RATIOS: RISK CHOLHDL) MALE FEMALE1/2 AVERA GE 3.43 3.27AVERAGE 4.97 4.4 42X AVERAGE 9.55 7.053X AVER AGE 23.39 1 1.04 NOTE THAT THE R EFERENCE VALUE IS RELATE DTO RISK LEVELS RECOM MENDED BY THE [facility].HEA RT, LUNG, AND BLOOD INST. HDL CHOLESTEROL 20.0 mg/dL 39-96 L (test code = HDL) LIPOPROTEIN LDL 45 mg/dL 0-100 N <100 OPT [id number] (test code = LDL) NEAR OPTI MAL/ABOVE [id number] 89 HIGH>PJ=880 VE RY HIGH*Guidelines provided by the National [facility] terol EducationProgra m Adult Treatment Panel III [id number] 12:25:00 Test Item Value Reference Range Interpretation Comments TROPONIN-I < 0.015 ng/mL 0.000-0.045 N Negative: <= (test code = 0.045 Positive: TROPI) >= 0.046 Correl ation with serial results, other cardiac markers andclinical findings is nec essary to determine the clinicalsignifi cance of this result. Results using different metho dologies should not be c omparedto one another as mercy titative results may [place] y by method. HGBA1C%2019-05-23 12:12:00 Test Item Value Reference Range Interpretation Comments HGBA1C% (test code = HGBA1C%) 5.2 %A1C 4.8-6.0 N UA RFLX MICR CULT IF [id number] 12:06:00 Test Item Value Reference Range Interpretation Comments UA COLOR (test code = COLU) FRANCISCO YEL/STRAW A UA APPEARANCE (test code = APPU) SL CLOUDY CLEAR UA GLUCOSE DIPSTICK (test code = NEGATIVE NEGATIVE DGLUU) UA BILIRUBIN DIPSTICK (test code NEGATIVE NEGATIVE = BILU) UA KETONE DIPSTICK (test code = NEGATIVE NEGATIVE KETU) UA SPECIFIC GRAVITY (test code = 1.025 1.005-1.030 N SGU) UA BLOOD DIPSTICK (test code = NEGATIVE NEGATIVE MAURI) UA PH DIPSTICK (test code = ERASMO) 5.0 5.0-7.0 N UA PROTEIN DIPSTICK (test code = 1+ NEGATIVE A PROU) UA UROBILINIOGEN DIPSTICK (test 0.2 mg/dL 0.2-1.0 code = URO) UA NITRITE DIPSTICK (test code = NEGATIVE NEGATIVE JENNIFER) UA LEUKOCYTE ESTERASE DIPSTICK NEGATIVE NEGATIVE (test code = LEUU) UA WBC (test code = WBCU) 4-9 WBC/HPF 0-3 A UA RBC (test code = RBCU) 4-10 RBC/HPF 0-3 UA WBC NO REFLEX (test code = 4-9 WBC/HPF 0-3 A WBCUCL) UA BACTERIA (test code = BACU) TRACE /HPF NONE SEEN UA SQUAMOUS CELLS (test code = 0-5 /HPF NONE SEEN SQU) UA HYALINE CAST (test code = 3-5 /LPF NONE SEEN HYALU) UA MUCUS (test code = MUCU) TRACE /LPF NONE SEEN UA AMORPHOUS SEDIMENT (test code TRACE /HPF NONE = AMORU) Indication for culture: Delirium-if no other srcSpecimen Description: INDWELLING CATH (FELDMAN)Cath Status: Under 72 hoursB-TYPE NATRIURETIC PEPTIDE 2019-05-23 08:40:00 Test Item Value Reference Range Interpretation Comments B-TYPE NATRIURETIC PEPTIDE (test 232.1 PG/ML 0-100 H code = BNP) CBC W/AUTO [id number] 07:25:00 Test Item Value Reference Range Interpretation Comments WHITE BLOOD CELL (test code = 8.97 x10 3/uL 4.5-11.0 N WBC) RED BLOOD CELL (test code = 3.33 x10 6/uL 3.54-5.02 L RBC) HEMOGLOBIN (test code = HGB) 9.8 g/dL 11.0-15.0 L HEMATOCRIT (test code = HCT) 31.7 % 33.0-45.0 L MEAN CELL VOLUME (test code = 95.2 fL 81.0-99.0 N MCV) MEAN CELL HGB (test code = MCH) 29.4 pg 27.0-33.0 N MEAN CELL HGB CONCETRATION 30.9 g/dL 33.0-37.0 L (test code = MCHC) RED CELL DISTRIBUTION WIDTH CV 15.9 % 11.5-14.5 H (test code = RDW) RED CELL DISTRIBUTION WIDTH SD 55.9 fL 37.0-54.0 H (test code = RDW-SD) PLATELET COUNT (test code = 340 x10 3/uL 150-400 N PLT) MEAN PLATELET VOLUME (test code 10.5 fL 7.0-9.0 H = MPV) NEUTROPHIL % (test code = NT%) 80.4 % 56.0-77.0 H IMMATURE GRANULOCYTE % (test 0.3 % 0.0-2.0 N code = IG%) LYMPHOCYTE % (test code = LY%) 12.2 % 14.0-32.0 L MONOCYTE % (test code = MO%) 6.9 % 4.8-9.0 N EOSINOPHIL % (test code = EO%) 0.1 % 0.3-3.7 L BASOPHIL % (test code = BA%) 0.1 % 0.0-2.0 N NUCLEATED RBC % (test code = 0.0 % 0-0 N NRBC%) NEUTROPHIL # (test code = NT#) 7.21 x10 3/uL 2.0-7.6 N IMMATURE GRANULOCYTE # (test 0.03 x10 3/uL 0.00-0.03 N code = IG#) LYMPHOCYTE # (test code = LY#) 1.09 x10 3/uL 1.0-3.8 N MONOCYTE # (test code = MO#) 0.62 x10 3/uL 0.1-0.8 N EOSINOPHIL # (test code = EO#) 0.01 x10 3/uL 0.0-0.2 N BASOPHIL # (test code = BA#) 0.01 x10 3/uL 0.0-0.2 N NUCLEATED RBC # (test code = 0.00 x10 3/uL 0.0-0.1 N NRBC#) MANUAL DIFF REQUIRED (test code NO = MDIFF) HEPATIC FUNCTION [id number] 06:28:00 Test Item Value Reference Range Interpretation Comments TOTAL PROTEIN (test code = PROT) 6.8 g/dL 6.4-8.2 N ALBUMIN (test code = ALB) 2.70 g/dL 3.4-5.0 L BILIRUBIN TOTAL (test code = BILT) 0.5 MG/DL <1.5 N BILIRUBIN DIRECT (test code = 0.20 MG/DL 0.0-0.30 N BILD) BILIRUBIN INDIRECT (test code = 0.30 MG/DL BILIND) SGOT/AST (test code = AST) 18 IUnit/L 15-37 N SGPT/ALT (test code = ALT) 16 IUnit/L 15-65 N ALKALINE PHOSPHATASE TOTAL (test 76 IUnit/L 20-125 N code = ALKP) [id number] 06:28:00 Test Item Value Reference Range Interpretation Comments PHOSPHOROUS (test code = PHOS) 4.2 MG/DL 2.5-4.9 N [id number] 06:28:00 Test Item Value Reference Range Interpretation Comments LIPASE (test code = LIP) 275 IUnit/L 73-393 N [id number] 06:28:00 Test Item Value Reference Range Interpretation Comments MAGNESIUM (test code = MAG) 2.10 mg/dL 1.8-2.4 N TSH REFLEX TO [id number] 06:28:00 Test Item Value Reference Range Interpretation Comments TSH REFLEX TO FT4 (test code = 0.50 IU/mL 0.42-5.47 N TSHREFLEX) URINALYSIS [id number] 06:07:00 Test Item Value Reference Range Interpretation Comments UA COLOR (test code = COLU) YELLOW YEL/STRAW UA APPEARANCE (test code = APPU) CLEAR CLEAR UA GLUCOSE DIPSTICK (test code = NEGATIVE NEGATIVE DGLUU) UA BILIRUBIN DIPSTICK (test code NEGATIVE NEGATIVE = BILU) UA KETONE DIPSTICK (test code = NEGATIVE NEGATIVE KETU) UA SPECIFIC GRAVITY (test code = 1.005 1.005-1.030 N SGU) UA BLOOD DIPSTICK (test code = NEGATIVE NEGATIVE MAURI) UA PH DIPSTICK (test code = ERASMO) 6.0 5.0-7.0 N UA PROTEIN DIPSTICK (test code = NEGATIVE NEGATIVE PROU) UA UROBILINIOGEN DIPSTICK (test 0.2 mg/dL 0.2-1.0 code = URO) UA NITRITE DIPSTICK (test code = NEGATIVE NEGATIVE JENNIFER) UA LEUKOCYTE ESTERASE DIPSTICK NEGATIVE NEGATIVE (test code = LEUU) UA RBC (test code = RBCU) 0-3 RBC/HPF 0-3 UA WBC NO REFLEX (test code = 0-3 WBC/HPF 0-3 WBCUCL) UA BACTERIA (test code = BACU) TRACE /HPF NONE SEEN UA SQUAMOUS CELLS (test code = 0-5 /HPF NONE SEEN SQU) UA MUCUS (test code = MUCU) TRACE /LPF NONE SEEN - XR CHEST 1 [id number] 06:07:00 FAX: Umesh Patton DO [phone] [place]: St: REG Name: SUKI KOROMA [facility] : 1950 Age/S: 68/F [address] [place] [address] Unit#: [id number] Loc: [place] [address] Phys: Umesh Patton DO Acct: [id number] Dis Date: Status: REG ER PHONE #: [phone] Exam Date: 05/23/2019 0552 FAX #: [phone] Reason: intubated, transferred from OSH EXAMS: CPT CODE: [id number] XR CHEST 1 V 47070 EXAM: CR, XR chest one view: 05/23/2019, 0539 hours HISTORY: intubated, transferred from OSH TECHNIQUE: 1 view of the chest. COMPARISON: 12/15/2016 FINDINGS: Interval intubation, the tip of the endotracheal tube is limited due to overlapping nasogastric tube, tip above shamir. Lower end of the nasogastric tube in stomach, tip excluded from the current image. Heart is borderline enlarged. Calcified plaque seen in aortic arch. Pulmonary vascularity is unremarkable. There is no pleural effusion or pneumothorax. Ill-defined right lower lobe mild opacity may suggest atelectasis or infiltrate Osseous structures are stable. IMPRESSION: 1. Interval intubation, tip of endotracheal tube above shamir. Lower end of the nasogastric tube in stomach. 2. Mild ill-defined opacity in the right lower lobe may suggest atelectasis or infiltrate. SL: [JSYED- H] at 0607 Reported and signed by: Edgard Del Real M.D. CC: Umesh Patton DO Technologist: RT Jorgito(R) Trnscrd Date/Time/By: 05/23/2019 (06) : By: [email or web address] Orig Print D/T: S: 05/23/2019 (0610) PAGE 1 Signed ReportARTERIAL BLOOD [id number] 06:03:00 Test Item Value Reference Range Interpretation Comments ARTERIAL BLOOD GAS PH 7.352 7.35-7.45 N (test code = PHA) ARTERIAL BLOOD GAS 60.8 mmHg 35-45 H PCO2 (test code = PCO2A) ARTERIAL BLOOD GAS PO2 107 mmHg 80-100 H (test code = PO2A) BICARBONATE TOTAL HCO3 33.7 mmol/L 22.0-26.0 H (test code = HCO3) BASE EXCESS (test code 8.0 mmol/L -4-4 H = EDUARD) ABG O2 SATURATION 98 % 90-100 N (test code = SATA) FIO2 (test code = 50 % FIO2A) ABG DELIVERY (test Vent code = JULIA) ABG VENT MODE (test AC v con code = MODEA) ABG VENT RESP RATE 16 /MIN (test code = RRA) ABG TIDAL VOLUME (test 400 ml code = TVA) ABG PEEP (test code = 5 cmH2O Perfor med by PEEPA) certified opera tor at [facility] ABG TEMPERATURE (test 98.6 F code = TEMPA) ABG SITE (test code = L Rad SITEA) PREDICTED AA GRADIENT 73 (test code = AP) PREDICTED PO2 (test 210 code = OP) a/A RATIO (test code = 0.38 RATIO) TCO2 ARTERIAL (test 36 code = TCO2A) A-A GRADIENT (test 177 code = AAGRADE) PROTHROMBIN [id number] 06:03:00 Test Item Value Reference Range Interpretation Comments PROTHROMBIN TIME 25.4 SECONDS 9.3-12.9 H PATIENT (test code = PTP) INTERNATIONAL NORMAL 2.3 0.8-1.2 H TARGET RATIO (test code = INR BY IN DICATION INR) Indication INR1. Prophyl axis of venous thrombos is 2.0 - 3. 0 (orthopedic jameson sahara), Prophylaxis of venous thrombos is (other than hig h-risk surgery), Shani tment of Deep Vein Thrombosis/Pulm onary Embolism, Preve ntion of systemic emb olism - Tissue heart va lves, Acute Myocardia l Infarction (to prevent systemic embo lism), Valvular heart disease, Atri al Fibrillation, Bileaflet mecha nical valve in aortic position.2. Mec hanical prosthetic valv es (high risk), 2.5 - 3.5 Presence of Lupus Anticoagu lant or Antiphospholi pid Antibodies, Pre vention of systemic e mbolism - Acute Myocard ial Infarction (t o prevent recurre nt infarct). 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 [facility] CHEMISTRY 8 [id number] 05:56:00 Test Item Value Reference Range Interpretation Comments ISTAT-SODIUM (test code = NAP) MMOL/L 134-147 ISTAT-POTASSIUM (test code = KP) MMOL/L 3.4-5.0 ISTAT-CHLORIDE (test code = CLP) MMOL/L 100-108 ISTAT CARBON DIOXIDE (test code = mmol/L 21-33 H ISTAT-CO2) ISTAT CALCIUM IONIZED (test code = MG/DL 1.12-1.32 ISTAT-JOSS) ISTAT-GLUCOSE (test code = GLUP) MG/DL 70-110 N ISTAT-BUN (test code = BUNP) MG/DL 7-18 N BEDSIDE CREATININE (test code = MG/DL 0.6-1.3 N CREATBED) GLOMERULAR FILTRATION RATE POC 43 ML/MIN (test code = GFRBED) CHEMISTRY 8 [id number] 05:56:00 Test Item Value Reference Range Interpretation Comments ISTAT-SODIUM (test 136 MMOL/L 134-147 N code = NAP) ISTAT-POTASSIUM (test 4.8 MMOL/L 3.4-5.0 N code = KP) ISTAT-CHLORIDE (test 91 MMOL/L 100-108 L Perform ed by code = CLP) certified opera tor at [facility] ISTAT CARBON DIOXIDE 39.0 mmol/L 21-33 H (test code = ISTAT-CO2) ISTAT CALCIUM IONIZED 1.18 MG/DL 1.12-1.32 N (test code = ISTAT-JOSS) ISTAT-GLUCOSE (test 110 MG/DL 70-110 N code = GLUP) ISTAT-BUN (test code = 9 MG/DL 7-18 N BUNP) BEDSIDE CREATININE 1.3 MG/DL 0.6-1.3 N (test code = CREATBED) GLOMERULAR FILTRATION 43 ML/MIN RATE POC (test code = GFRBED) TROPONIN-I [id number] 05:53:00 Test Item Value Reference Range Interpretation Comments TROPONIN-I RAPID 0.03 ng/mL 0.00-0.08 N 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 Rather, the pat ient sclinical prese ntation (history, physi amari exam) and ECGshould b e used in conjunction wit h troponin in thediagnosti c evaluation of s uspected myocardial infa rction. Aserial samplin g protocol is recommended to facilitate the identification of temporal changes in trop onin levels characteristic of PA. Influenza antigen test, reflex negative to [id number] 18:08:46 Test Item Value Reference Range Interpretation Comments Influenza Negative for Specimen antigen (test Influenza A/B Information ecimen code = 03059-8) antigen. Source: [facility] Site: Not speci fibrandon Joyce MethodistIonized [id number] 06:39:59 Test Item Value Reference Range Interpretation Comments pH (test code = 2753-2) 7.35 Ionized calcium (test code = 1.16 mmol/L 1.11-1.32 1994-) Joyce MethodistRespiratory culture, [id number] 10:07:58 Test Item Value Reference Interpretation Comments Range Respiratory culture Normal oral A Specimen isolate, -5 InformationSpec imen quantitative (test cfu/ml Source: M ini bronchial code = 2147) alveolar lavage Specimen Site: RUL (righ t upper lobe) Lab Interpretation Abnormal (test code = 96806-4) Joyce MethodistArterial blood gas, [id number] 12:48:18 Test Item Value Reference Range Interpretation Comments pH, arterial (test code = 2744-1) 7.40 7.35-7.45 pCO2, arterial (test code = 2019-8) 44 35- 45 mmHg pO2, arterial (test code = 2703-7) 313 80- 90 mmHg H Temperature, Celsius (test code = 37.0 Degrees C 8310-5) O2 saturation, arterial (test code = 99 % 95-100 2708-6) pH, arterial corrected (test code = 7.40 11810-9) pCO2, arterial corrected (test code 44 mmHg = 84317-4) pO2, arterial corrected (test code = 313 mmHg 06924-8) Base excess, arterial (test code = 2 -2 - 2 mEq-L 1925-7) Lab Interpretation (test code = Abnormal 04985-4) Joyce MethodistGlucose level, [id number] 12:48:18 Test Item Value Reference Range Interpretation Comments Glucose, syringe (test code = 156 mg/dL 65-99 H 2345-7) Lab Interpretation (test code = Abnormal 02339-8) Joyce MethodistHemoglobin, [id number] 12:48:18 Test Item Value Reference Range Interpretation Comments Hemoglobin, syringe (test code = 11.1 g/dL 12-16 L 718-7) Lab Interpretation (test code = Abnormal 30291-0) Joyce MethodistIonized calcium, [id number] 12:48:18 Test Item Value Reference Range Interpretation Comments Ionized calcium, arterial (test 0.97 mmol/L 1.11-1.32 L code = 37014-5) Lab Interpretation (test code = Abnormal 52709-2) Isiah MethodistPotassium, [id number] 12:48:18 Test Item Value Reference Range Interpretation Comments Potassium, syringe (test code = 2008) 3.6 3.5- 5.0 mEq/L Isiah EricksonistSodium level, [id number] 12:48:18 Test Item Value Reference Range Interpretation Comments Sodium, syringe (test code = 2947-0) 127 125- 148 mEq/L Isiah GarciaUs duplex arterial upper [id number] 23:22:54Hm Interface, Radiology Results Incoming - 04/15/2019 11:26 PM CDTEXAM: US DUPLEX ARTERIAL UPPER EXTREMITY RIGHTCLINICAL HISTORY: cold hand s p removal of [facility] arterial catheter with closure device RUE arteriogramTECHNIQUE: Grayscale, color Doppler, and spectral waveform analysis of the right upper extremity arterial system was performed. COMPARISON: None.FINDINGS:No flow is identified within the distal brachial artery and proximal radial artery. Minimal flow is seen within the remaining radialand ulnar arteries. Specific velocities are as follows:Right subclavian artery -87.6 cm/sRight axillary artery -31.3 cm/sProximal brachial artery -26.1 cm/sMid brachial artery -16.1 cm/sDistal radial artery -no flow identifiedMid radial artery -6 cm/sDistal radial artery - 4.7 cm/sProximal ulnar artery-4.7 cm/sMid ulnar artery -4.7 cm/sDistal ulnar artery -4.7 cm/sIMPRESSION:1.No flow is identified within the distal brachial artery and proximal radial artery. Minimal flow is seen within the remaining radial and ulnar arteries. Specific velocities are as listed.Findings were discussed with Dr. Webb at 04/15/2019 11:21 PM who verbalized understanding.[facility]ALTH-[id number] MethodistOR [place] < 1 [id number] 15:35:14Hm Interface, Radiology Results Incoming - 04/15/2019 3:38 PM CDTEXAMINATION: OR [place] 1 HOURINDICATION: PainIMPRESSION:Intraoperative fluoroscopy provided. No radiologist present for procedure. Please see procedure note for details.Fluoroscopic images: 316Fluoroscopy time: 1.8 minutesHoufree hospital for women MethodistCentral [id number] 14:21:48Maninder Mejia MD 04/15/2019 3:12 PMCentral linePerformed by: Maninder Mejia, MDAuthorized by: Maninder Mejia MD Patient Location: ORStart Time: 04/15/2019 2:21 PMEnd Time: 04/15/2019 2:21 PMStaff: Anesthesiologist: Maninder Mejia MD Resident/BAKERY ASSOCIATE/AA: Esther Taveras CRNA Performed by: AnesthesiologistPreprocedure:patient identified, IV checked, site and side verified, risks and benefits discussed, procedure verified, surgical consent complete, patient position confirmed, monitors and equipment checked and pre-op evaluation complete MSBT: antiseptic used during central venous catheter insertion, all elements of maximal sterile barrier technique followed, hand hygiene performed prior to central venous catheter insertion, cap/gown used by other personnel during central venous catheter insertion, solutions labeled and all ports not used during insertion clamped TIme Out Performed: 04/15/2019 2:21 PMIndications: Indications: Central pressure monitoring and vascular accessAnesthesia: Anesthesia: GeneralProcedure details: Patient position: Trendelenburg Catheter Type: Triple lumen Catheter Size: 8 Fr Catheter Site: internal jugular vein Catheter site laterality: Left Pre-procedure: Landmarks identified Ultrasound guidance used: Yes Ultrasound image saved: Yes Number of attempts: 1 Successful placement: Yes Guidewire removal: Guidewire removal is confirmed Guidewire removal witnessed by: Esther Taveras CRNAPost-procedure: Post-procedure: line sutured, sterile dressing applied per protocol and ports flushed with saline Post-procedure: Sterile caps on all hubs and blood cleaned with CHG Assessment:Blood return through all ports and free fluid flow Patient tolerance: Patient tolerated the procedure well with no immediate complicationsRichardson MethodistArterial [id number] 14:21:14Maninder Mejia MD 04/15/2019 3:12 PMArterial linePerformed by: Maninder Mejia, MDAuthorized by: Maninder Mejia MD Patient Location: ORStart Time: 04/15/2019 2:21 PMEnd Time: 04/15/2019 2:21 PMStaff: Anesthesiologist: Maninder Mejia MD Resident/BAKERY ASSOCIATE/AA: Esther Taveras CRNA Performed by: AnesthesiologistPre-procedure: patient identified, IV checked, site and side verified, risks and benefits discussed, procedure verified, surgical consent complete, patient position confirmed, monitors and equipment checked and pre-op evaluation complete MSBT: antiseptic used, all elements of maximal sterile barrier technique followed, hand hygiene performed, cap/gown used by other personnel and solutions labeled TIme Out Performed: 04/15/2019 2:21 PMIndications: Indications: multiple ABGs and hemodynamic monitoring Anesthesia: Anesthesia: GeneralProcedureDetails: Arterial Line placement: Placed post induction Line placement site: RadialLine placement side: Left Arterial line gauge: 20 GNumber of attempts: 3 Ultrasound guidance used: Yes Post-procedure: Post-procedure: Sterile dressing applied Post procedure circulation, sensation, movement: Unchanged and normal Patient tolerance: Patient tolerated the procedure well with no immediate complications Richardson MethodistEchocardiogram complete w contrast and 3D if [id number] 16:34:00Interface, Radiology Results In - 03/29/2019 4:37 PM CDT Echocardiography Report [address] [address], [place] [address] Pat.Name: SUKI KOROMA Bridgett.ID: [id number].Date: 03/29/2019 Refer.MD: PATRICK ESPINOZA MD Exam Time: 2:02:00 PM Study Type:Routine Echo Height: 59in Weight: 200lb BSA: 1.85 m2 Age: 2 1950,68Y Sex: FEMALE BP: 219/92 HR: 75 bpm Sonogrphr: Desirae, RCS, RVS Pat. Stat.:Inpatient Room: ED 09 Study Status:Final Echo Event ID:[id number] Order ID: [id number] Reason forStudy:chest pain Procedures: 2D Echo, Colorflow Doppler, Portable, Intravenous LumasonContrastRace: C SUMMARY: Mild concentric LVH with hyperdynamic LVEF.Normal RV systolic function.Mild calcific aortic stenosis; mild aortic regurgitation.Mild mitral stenosis related to annular calcification. Normal RAP estimate. FINDINGS: LV: LV size is normal. There is mild concentric LV hypertrophy. LV EF is hyperdynamic. Overall wall motion is hyperdynamic. Estimated EF is >70%.RV: RV size is normal. RVsystolic function is normal.LA: LA volume is severely enlarged.RA: RA volume is enlarged. AO: Aortic root diameter is normal.MERLIN: No pericardial effusion. There is an anterior space consistent with a prominent epicardial fat pad.AV: Aortic valve not well seen. Mild aortic regurgitation. Mild aortic valve stenosis. Estimated mean aortic valve gradient 19 mmHg, peak velocity 3.2 m/sec, and valve area of 1.5 cm2 using continuity equation. Transvalvular gradients may be partially elevated due to concomitant aortic regurgitationMV: Moderate mitral annular calcification. Mild mitral stenosis. Estimated mean mitral valve gradient 7 mmHg at a heart rate of 67 b/min.PV: No structural PV abnormalities noted.TV: No structural TV abnormalities noted.Rouse: Hepatic vein pressure is normal, RA pressure < 5mmHg. Unable to assess diastolic function due to mitral inflow obstruction. Other: Insufficient TR jet to estimate PA systolic pressure. --------MEASUREMENTS: 2DParasternal Long [place] Ao An 1.8 cm LVPWd 1.1 cm Ao Rtd 2.5 cm Index 1.4 cm/m2 LA Ds 4.3 cm IVSd 1.2 cm RWT 0.5 LVIDd 4.5 cm Index 2.4 cm/m2 LV Mass 186.4 g (87-129) LVIDs 2.6 cm LVM Index 100.8 g/m2 LV%fs 42.2 % LVOT 1.7 cm LA Sng Plane LA Area 26.9 cm2 (8.8-23.4) LA Vol 90 ml Index 48.6 ml/m2 LA LngAx 6.5 cm LVOT LVOT Area 2.3 cm2 DOPPLERAV For Flow/DEWAYNE AV pkVel 324.8 cm/s (100-170) AV AC/ET 0.2 AV mnVel 199.8 cm/s AV TVI 64.5 cm AV pkPG 42.2 mmHg AVpkAcRt 14730.5 cm/s2 AV Mean G 18.8 mmHg AV DeRt 1005.8 cm/s2 AV ET 323 msec AV AC 50 msec (83-118)Aortic Valve AV DI 0.6 AV Area 1.5 cm2 (3-5)LVOT For Flow LVOT TVI 41 cm LVOTmnPG 6.7 mmHg LVOTpkVel 175.7 cm/s HR 65 bpm LVOTpkPG 12.3 mmHg LVOT LVOT SV 94.3 ml LVOT CO 6.1 l/min SVi 51 ml/m2 LVOT CI 3.3 l/m/m2 Signed 03/29/2019 04:34 PMJian Frederick M.D.[facility] Angiogram Pe [id number] 13:27:57 Interface, Radiology Results [facility] - 03/29/2019 1:31 PM CDTEXAMINATION: CT ANGIOGRAM PE CHESTCLINICAL HISTORY: SHORTNESS OF BREATHTECHNIQUE: PE PROTOCOL: CT angiographic images of the chest were obtained during intravenous administration of iodinated contrast. Computerized reformatted images and 3-D MIP images were also obtained and archived (CT pulmonary embolus protocol). CT imaging was performed with iterative reconstruction technique and/or automated exposure control to reduce radiation d ose.COMPARISON: Chest x-ray on 03/28/2019 IMPRESSION:CHEST:1. Pulmonary Arteries: No definite CT scanevidence of acute pulmonary embolus. Main pulmonary artery is mildly enlarged measuring 3.5 cm. 2. Aorta: Calcification of the thoracic aorta is noted. No aneurysm.3. Heart: The heart is normal in size. Coronary artery calcifications are present. 4. Pericardial Fluid: No pericardial effusion.5. Mediastinum: No enlarged mediastinal or hilar lymphadenopathy. No mediastinal mass.4. Airways: Central airways are patent.5. Lungs: Lower lobe bronchitis with patchy bandlike atelectasis. No discrete focal infiltrates. No suspicious pulmonary nodules or masses. 6. Pleural Fluid: No pleural effusions.7. Bones: Degenerative changes of the osseous structures. No suspicious lesions.8. Upper Abdomen: No suspicious abnormalities.9. Other Findings: NoneSUMMARY:1.No CT scan evidence of acute pulmonary embolus. Pulmonary artery hypertension.2.Acute bronchitis with patchy atelectasis at the lung bases. No focal infiltrates. [facility]-[id number] MethodistAlpha-1 antitrypsin [id number] 12:44:58 Test Item Value Reference Range Interpretation Comments Alpha-1 antitrypsin (test code = 129 mg/dL 90-200 6771-0) [facility] ED Preliminary Interpretation - Not an [id number] 16:48:42 Test Item Value Reference Range Interpretation Comments JULIO (test code = JULIO) Clay Coughlin DO 03/30/2019 3:36 [facility] [place] Preliminary Interpretation - Not an OrderPerformed by: Clay Coughlin DOAuthorized by: Clay Coughlin DO ECG reviewed by ED Physician in the absence of a etl tester: yes Interpretation: Interpretation: abnormal Rate: ECG rate: 77 ECG rate assessment: normal Rhythm: Rhythm: sinus rhythm Ectopy: Ectopy: none QRS: QRS axis: Left QRS intervals: NormalConduction: Conduction: normal ST segments: ST segments: NormalT waves: T waves: normal Comments: low voltage QRS. Lab Interpretation Abnormal (test code = 57772-0) [facility] [id number] 16:48:42Clay Coughlin DO 03/30/2019 3:36 AMCritical CarePerformed by: Clay Coughlin DOAuthorized by: Clay Coughlin DO Critical care provider statement: Critical care time (minutes): 35 Critical care time was exclusive of: Separately billable procedures and treating other patients and teaching time Critical care was necessary to treat or prevent imminent or life-threatening deterioration of the following conditions: Respiratory failure (and uncontrolled HTN) Critical care was time spent personally by me on the following activities: Blood draw for specimens, development of treatment plan with patient or surrogate, discussions with consultants, evaluation of patient's response to treatment, examination of patient, interpretation of cardiac output measurements, obtaining history from patient or surrogate, ordering and performing treatments and interventions, ordering and review of laboratory studies, ordering and review of radiographic studies, pulse oximetry, re-evaluation of patient's condition and review of old charts Jaime 'yes' if you are taking over critical care for this patient from another provider.: Natanael Garcia
[2020-03-13 00:52] LABS: Basophils % 0.4 % (0-1.3); Hematocrit 33.2 % (36.0-45.0); Lymphocytes % 8.6 % (15.3-44.8); MPV 10.1 fL (7.6-11.3); RBC Red Blood Cell Count 4.35 M/uL (3.86-4.86)
[2020-03-13 00:55] LABS: Protime INR 0.94
[2020-03-13 01:05] LABS: ALT/SGPT 17 U/L (12-78); AST/SGOT 15 U/L (15-37); Albumin 3.7 g/dL (3.4-5.0); Alkaline Phosphatase 123 U/L (45-117); BUN Blood Urea Nitrogen 21 mg/dL (7-18); Bicarbonate 28 mmol/L (21-32); Bilirubin Direct < 0.1 mg/dL (0-0.2); Bilirubin Total 0.3 mg/dL (0.2-1.0); Glucose Level 302 mg/dL (74-106); Magnesium 2.5 mg/dL (1.8-2.4); NT PRO-BNP 515 pg/mL (<125); Potassium 4.3 mmol/L (3.5-5.1); Protein, Total 8.7 g/dL (6.4-8.2); Sodium Level 138 mmol/L (136-145); Troponin (Emerg Dept Use Only) 0.37 ng/mL (0.0-0.045)
--- NOTE | 2020-03-13 01:14 | ER ---
Nurse's Notes [facility] Name: Suki Koroma Age: 69 yrs Sex: Female : 1950 Arrival Date: 03/13/2020 Time: 00:00 Bed 3 Private MD: Diagnosis: Respiratory Failure;Pneumonia Presentation: 03/13 00:00 Risk Assessment: Do you want to hurt yourself or someone else? Unable to obtain. vc 00:02 Chief complaint: EMS states: "acute onset of difficulty breathing. Upon arrival, ss patient was on CPAP machine with O2 saturation at 50 %, diaphoretic and lips cyanotic. NRB placed with saturation improved to 60%. Pt quickly became tired and decision was made to intubate. Etomidate 20 mg and Rocuronium 50 mg given IVP for RSI.". Coronavirus screen: Client denies travel out of the [place] in the last 14 days. Ebola Screen: Patient denies exposure to infectious person. Patient denies travel to an Ebola-affected area in the 21 days before illness onset. Initial Sepsis Screen: Does the patient meet any 2 criteria? HR > 90 bpm. Does the patient have a suspected source of infection? No. Patient's initial sepsis screen is negative. Onset of symptoms was March 13, 2020. 00:02 Method Of Arrival: EMS: [facility] 00:02 Acuity: ELVIA 1 ss 00:07 Care prior to arrival: Oral intubation 7.0 ET tube, measures 24 cm \\T\\ teeth. IV ss initiated. 20 GA, in the right forearm. Triage Assessment: 00:00 General: Appears distressed, obese, unkempt, Behavior is INTUBATED, SEDATED. vc Respiratory: Reports SPOUSE REPORTS SOB X 1 WEEK. Onset: The symptoms/episode began/occurred 1 WEEK, the patient has severe shortness of breath. Historical: - Allergies: 00:37 No Known Allergies; ss - Home Meds: 01:56 amlodipine 2.5 mg tab 1 tab twice a day [Active]; diazepam 5 mg Oral tab 1 tab 3 times vc per day [Active]; Vitamin D Oral daily [Active]; losartan 25 mg oral tab 0.5 tab 2 times per day [Active]; atorvastatin 20 mg oral tab 1 tab once daily [Active]; clopidogrel 75 mg oral tab 1 tab once daily [Active]; furosemide 40 mg Oral tab 1 tab once daily [Active]; isosorbide dinitrate 10 mg Oral tab 1 tab 2 times per day [Active]; carvedilol 6.25 mg oral tab 1.5 tab 2 times per day [Active]; aspirin 81 mg Oral TbEC 1 tab once daily [Active]; - PMHx: 00:06 COPD; ss - Immunization history:: Adult Immunizations unknown. - Social history:: Smoking status: unknown. Screenin:15 Abuse screen: PATIENT ARRIVED INTUBATED. Nutritional screening: No deficits noted. vc Tuberculosis screening: No symptoms or risk factors identified. Fall Risk No fall in past 12 months (0 pts). No secondary diagnosis (0 pts). IV access (20 points). Ambulatory Aid- None/Bed Rest/Nurse Assist (0 pts). Gait- Mental Status- Oriented to own ability (0 pts). Total Arreola Fall Scale indicates No Risk (0-24 pts). Assessment: 00:00 Respiratory: Airway via oral intubation Respiratory effort is PATIENT ORALLY INTUBATED vc Ventilator assessment: ET Tube: 7.0 23 cm at lip. Respiratory Rate: 16 FiO2: 65% PEEP: 5 HOB > 30 degrees. DVT Prophylaxis: Heparin. Breath sounds are diminished bilaterally. 00:00 Pain: Unable to use pain scale. Patient is intubated. Cardiovascular: Rhythm is sinus vc rhythm. 00:00 General: Appears distressed, uncomfortable, obese, unkempt, Behavior is vc INTUBATED/SEDATED. Neuro: Level of Consciousness is SEDATED. GI: No deficits noted. : No deficits noted. 00:40 Reassessment:. ss 01:00 Reassessment: PATIENT STILL SEDATED, VITAL SIGNS ARE STABLE WILL CONTINUE TO MONITOR. vc 01:12 Reassessment: PATIENT WAKING UP STARTING TO MOVE AROUND, MD NOTIFIED, NEW ORDERS GIVEN vc AND IMPLEMENTED. 01:20 Reassessment: PROPOFOL INCREASED TO 15MCG/MIN, PATIENT STILL AGITATED, WILL CONTINUE TO vc MONITOR. 01:25 Reassessment: PATIENT STILL AWAKE MOVING AROUND, DRIP INCREASED TO 25MCG/MIN. vc 01:35 Reassessment: DRIP INCREASED TO 30 MCG/MIN. vc 01:45 Reassessment: INCREASED TO 35MCG/MIN. vc 02:15 Reassessment: PATIENT SEDATED, BLOOD PRESSURE DECREASED TO 104/43 WITH A MAP OF 60, vc PROPOFOL DECREASED TO 30 MCG/MIN, WILL CONTINUE TO MONITOR. 02:45 Reassessment: PATIENT STARTING TO FLOP HER ARMS AROUND, PROPOFOL INCREASED TO 35 vc MCG/MIN. 02:53 Reassessment: hospitalist informed for the ABG result. rt adjust the MV settings. rr5 03:30 Reassessment: PATIENT SEDATED, CORE TEMPERATURE INCREASED TO 97.1, RESPIRATIONS EVEN, vc BLOOD PRESSURE ON THE LOWER END, WILL CONTINUE TO MONITOR. Vital Signs: 00:06 BP 176 / 67; Pulse 97; Resp 12 A; Pulse Ox 98% on ETT vent; ss 00:37 Temp 95.3(C); ss 01:21 BP 173 / 68; Pulse 94; Temp 95.9(C); Pulse Ox 93% on ETT vent; ss 01:41 BP 145 / 59; Pulse 80; Resp 14; Temp 96.1; Pulse Ox 92% on ETT vent; Weight 100 kg; vc 02:38 BP 104 / 43; Pulse 77; Resp 20; Temp 96.8; Pulse Ox 91% on ETT vent; rr5 ED Course: 00:00 Patient arrived in ED. ss 00:04 Zhao Cobos MD is Attending Physician. 7 00:06 Triage completed. ss 00:06 Arm band placed on right wrist. ss 00:11 Patient has correct armband on for positive identification. Placed in gown. Bed in low ss position. employment agency manager on. Pulse ox on. NIBP on. 00:11 Maintain EMS IV. Dressing intact. Good blood return noted. Site clean \\T\\ dry. Gauge \\T\\ ss site: 20 gauge in R FA. O2 via ET TUBE, on mechanical ventilator. Thermoregulation: warm blanket given to patient. 00:24 Inserted saline lock: 24 gauge in right hand, using aseptic technique. Blood collected. ds4 Missed attempt(s): 20 gauge in right forearm. Bleeding controlled, band aid applied, catheter tip intact. 00:37 Feldman cath inserted, using sterile technique, 16 Fr., by wa, balloon inflated, to ss gravity drainage. 00:40 Thermoregulation: Naz blanket applied. ss 00:53 XRAY Chest (1 view) In Process Unspecified. EDMS 01:03 Yarely Bautista, RN is Primary Nurse. vc 01:13 Carlos Nobles is Hospitalizing Provider. 7 01:44 Notified Nurse Practitioner and/or Physician Electrical Products Sales Engineer of a critical lab result(s), DDIMER [id number]. 03:40 No provider procedures requiring assistance completed. Patient admitted, IV remains in vc place. Administered Medications: 01:12 Drug: Propofol 5 mcg/kg/min {Note: started at 10mcg/kg.} Route: IV; Rate: calculated vc rate; Site: left forearm; 04:14 Follow up: IV Status: Infusion continued upon admission vc 01:30 Drug: Rocephin - (cefTRIAXone) 1 grams Route: IVPB; Infused Over: 30 mins; Site: right vc wrist; 02:20 Follow up: Response: No adverse reaction; IV Status: Completed infusion; IV Intake: [id number] 01:35 Drug: AZITHromycin 500 mg Route: IVPB; Infused Over: 1 hrs; Site: right wrist; vc 02:40 Follow up: Response: No adverse reaction; IV Status: Completed infusion; IV Intake: rr5 250ml Intake: 02:20 IV: 50ml; Total: 50ml. rr5 02:40 IV: 250ml; Total: 300ml. rr5 Outcome: 01:14 Decision to Hospitalize by Provider. [facility] 03:40 Admitted to ICU accompanied by nurse, accompanied by tech, via stretcher, room 11, on vc monitor, with chart, Other RT ACCOMPANIED TO ICU WITH VENT. 03:40 Condition: stable 03:40 Instructed on the need for admit. vc 03:42 Patient left the ED. ss Signatures: Dispatcher [employer] EDWA Sydnie Carbajal RN RN Devon Kumari ds4 Randy Craft RN RN rr5 Yarely Bautista RN RN vc Holmes, Maurice, MD MD 7 Corrections: (The following items were deleted from the chart) 00:37 00:06 Allergies: Unable to obtain; ss ss 04:40 00:00 Respiratory: Airway via oral intubation Respiratory effort is PATIENT ORALLY vc INTUBATED Ventilator assessment: ET Tube: Respiratory Rate: 16 FiO2: 65% PEEP: 5 HOB > 30 degrees. DVT Prophylaxis: Heparin. Breath sounds are diminished bilaterally. vc
--- NOTE | 2020-03-13 01:14 | EDPHYS ---
Physician Documentation [facility] Name: Suki Koroma Age: 69 yrs Sex: Female : 1950 Arrival Date: 03/13/2020 Time: 00:00 Bed 3 Private MD: ED Physician Zhao Cobos HPI: 03/13 00:16 This 69 yrs old Female presents to ER via EMS with complaints of Respiratory mh7 Distress. 00:16 The patient has shortness of breath at rest. mh7 00:17 Onset: The symptoms/episode began/occurred today. Duration: The symptoms are mh7 continuous. The patient's shortness of breath is aggravated by unknown, is alleviated by unknown. Associated signs and symptoms: Pertinent positives: unknown, Pertinent negatives: unknown. Severity of symptoms: At their worst the symptoms were severe just prior to arrival, today, in the emergency department the symptoms have improved markedly, intubated by EMS. Unable to obtain HPI due to patient is on ventilator. Per EMS patient had acute onset of SOB today. She was on CPAP on arrival at scene with O2 sat of 50% then placed on non re breather without much improvement. EMS then intubated and brought to ED.. Historical: - Allergies: 00:37 No Known Allergies; ss - Home Meds: 01:56 amlodipine 2.5 mg tab 1 tab twice a day [Active]; diazepam 5 mg Oral tab 1 tab 3 times vc per day [Active]; Vitamin D Oral daily [Active]; losartan 25 mg oral tab 0.5 tab 2 times per day [Active]; atorvastatin 20 mg oral tab 1 tab once daily [Active]; clopidogrel 75 mg oral tab 1 tab once daily [Active]; furosemide 40 mg Oral tab 1 tab once daily [Active]; isosorbide dinitrate 10 mg Oral tab 1 tab 2 times per day [Active]; carvedilol 6.25 mg oral tab 1.5 tab 2 times per day [Active]; aspirin 81 mg Oral TbEC 1 tab once daily [Active]; - PMHx: 00:06 COPD; ss - Immunization history:: Adult Immunizations unknown. - Social history:: Smoking status: unknown. ROS: 00:17 Unable to obtain ROS due to patient is on ventilator. mh7 Exam: 00:28 Head/Face: Normocephalic, atraumatic. Neck: Trachea midline, no thyromegaly or masses mh7 palpated, and no cervical lymphadenopathy. Supple, full range of motion without nuchal rigidity, or vertebral point tenderness. No Meningismus. Chest/axilla: Normal chest wall appearance and motion. Nontender with no deformity. No lesions are appreciated. Cardiovascular: Regular rate and rhythm with a normal S1 and S2. No gallops, murmurs, or rubs. Normal PMI, no JVD. No pulse deficits. 00:28 Abdomen/GI: Soft, non-tender, with normal bowel sounds. No distension or tympany. No guarding or rebound. No evidence of tenderness throughout. Back: No spinal tenderness. No costovertebral tenderness. Full range of motion. Skin: Warm, dry with normal turgor. Normal color with no rashes, no lesions, and no evidence of cellulitis. MS/ Extremity: Pulses equal, no cyanosis. Neurovascular intact. Full, normal range of motion. 00:28 Constitutional: The patient appears obviously ill, Intubated 00:28 Respiratory: severe repiratory distress is noted, Respirations: Intubated, Breath sounds: rhonchi, that are moderate, are scattered. 00:28 Neuro: Orientation: unable to test, the patient is intubated, Mentation: unable to test, the patient is intubated, Memory: unable to test, the patient is intubated, Cranial nerves: unable to test, the patient is intubated, Cerebellar function: unable to test, the patient is intubated, Motor: unable to test, the patient is intubated, Sensation: unable to test, the patient is intubated, Gait: not tested. seizure activity, is not displayed by the patient, Abnormal movements: there are no abnormal movements. 02:23 ECG was reviewed by the Attending Physician. [facility] Vital Signs: 00:06 BP 176 / 67; Pulse 97; Resp 12 A; Pulse Ox 98% on ETT vent; ss 00:37 Temp 95.3(C); ss 01:21 BP 173 / 68; Pulse 94; Temp 95.9(C); Pulse Ox 93% on ETT vent; ss 01:41 BP 145 / 59; Pulse 80; Resp 14; Temp 96.1; Pulse Ox 92% on ETT vent; Weight 100 kg; vc 02:38 BP 104 / 43; Pulse 77; Resp 20; Temp 96.8; Pulse Ox 91% on ETT vent; rr5 MDM: 00:[address] [facility] 01:12 Differential diagnosis: Anemia asthma, CHF exacerbation, Chronic Obstructive Pulmonary [facility] Disease Myocardial Infarction pneumonia, Pneumothorax pulmonary edema. Antibiotic administration: Rocephin and Zithromax given. Data reviewed: vital signs, nurses notes, EMS record, lab test result(s), cardiac enzymes, CBC, electrolytes, Flu: urinalysis, EKG, radiologic studies, plain films. Data interpreted: Pulse oximetry: on ventilator is 98 %. Interpretation: acceptable. 04:39 Response to treatment: the patient's symptoms have markedly improved after treatment. [facility] ED course: Discussed with patient's who stated that she has been intubated multiple times in the past for similar episodes.. 03/13 00:12 Order name: Basic Metabolic Panel; Complete Time: 01:06 [facility] 03/13 00:12 Order name: CBC with Diff [facility] 03/13 00:12 Order name: LFT's; Complete Time: 01:06 [facility] 03/13 00:12 Order name: Magnesium; Complete Time: 01:06 [facility] 03/13 00:12 Order name: NT PRO-BNP; Complete Time: 01:06 [facility] 03/13 00:12 Order name: PT-INR; Complete Time: 01:51 [facility] 03/13 00:12 Order name: Troponin (emerg Dept Use Only); Complete Time: 01:06 [facility] 03/13 00:14 Order name: Influenza Screen (a \T\ B) [facility] 03/13 00:23 Order name: Blood Culture Adult (2) 03/13 00:23 Order name: Lactate; Complete Time: 01:08 03/13 00:32 Order name: Glucose, Ancillary Testing; Complete Time: 00:48 ED[facility] 03/13 00:57 Order name: Manual Differential [facility] 03/13 00:12 Order name: XRAY Chest ([address] view) [facility] 03/13 00:12 Order name: EKG; Complete Time: 00:13 [facility] 03/13 00:12 Order name: Cardiac monitoring; Complete Time: 00:26 [facility] 03/13 00:12 Order name: EKG - Nurse/Tech; Complete Time: 00:27 [facility] 03/13 00:12 Order name: IV Saline Lock; Complete Time: 00:27 [facility] 03/13 01:21 Order name: D-Dimer; Complete Time: 01:51 [facility] 03/13 01:34 Order name: ABG vc 03/13 01:43 Order name: SARS-COV-2 RT PCR [facility] 03/13 01:45 Order name: CONS Physician Consult [facility] 03/13 02:07 Order name: UDS rr5 03/13 02:07 Order name: CRP 5 03/13 02:34 Order name: Urine Dipstick--Ancillary (enter results) [facility] 03/13 03:22 Order name: Urine Drug Screen [facility] 03/13 00:12 Order name: Labs collected and sent; Complete Time: 00:26 [facility] 03/13 00:12 Order name: O2 Per Protocol; Complete Time: 00:26 [facility] 03/13 00:12 Order name: O2 Sat Monitoring; Complete Time: 00:26 [facility] 03/13 00:49 Order name: Urine Dipstick-Ancillary (obtain specimen); Complete Time: 01:36 mh7 EC:23 Rate is 99 beats/min. Rhythm is regular, Normal Sinus Rhythm. QRS Brick is Normal. MD mh7 interval is normal. QRS interval is normal. QT interval is normal. Q waves are Present in leads V1, V2, V3. T waves are Normal. No ST changes noted. Clinical impression: Abnormal EKG without significant change. Administered Medications: 01:12 Drug: Propofol 5 mcg/kg/min {Note: started at 10mcg/kg.} Route: IV; Rate: calculated vc rate; Site: left forearm; 04:14 Follow up: IV Status: Infusion continued upon admission vc 01:30 Drug: Rocephin - (cefTRIAXone) 1 grams Route: IVPB; Infused Over: 30 mins; Site: right vc wrist; 02:20 Follow up: Response: No adverse reaction; IV Status: Completed infusion; IV Intake: [id number] 01:35 Drug: AZITHromycin 500 mg Route: IVPB; Infused Over: 1 hrs; Site: right wrist; vc 02:40 Follow up: Response: No adverse reaction; IV Status: Completed infusion; IV Intake: rr5 250ml Disposition: 04:41 Co-signature as Attending Physician, Zhao Cobos MD. [facility] Disposition: 03/13/20 01:14 Hospitalization ordered by Carlos Nobles for Inpatient Admission. Preliminary diagnosis are Respiratory Failure, Pneumonia. - Bed requested for Intensive Care Unit. - Status is Inpatient Admission. ss - Condition is Guarded. - Problem is new. - Symptoms have improved. Signatures: Dispatcher [employer] EDMS Sydnie Carbajal RN RN Yarely Bautista RN RN Zhao Cobos MD MD mh7 Randy Craft RN rr5 Corrections: (The following items were deleted from the chart) 00:37 00:06 Allergies: Unable to obtain; ss ss 01:20 01:13 D-DIMER+COAG.LAB.BRZ ordered. EDMS EDMS 01:42 00:23 CORONAVIRUS+MR.LAB.BRZ ordered. EDMS EDMS 03:42 01:14 Hospitalization Ordered by Carlos Nobles for Inpatient Admission. Preliminary ss diagnosis is Respiratory Failure; Pneumonia. Bed requested for Intensive Care Unit. Status is Inpatient Admission. Condition is Guarded. Problem is new. Symptoms have improved. mh7
[2020-03-13] MEDS ORDERED: propofoL 1,000 MG/100 ML VIAL IV ONE ×4 (01:15→21:35)
[2020-03-13] MEDS ORDERED: CEFTRIAXONE/SWI 1gm 1 GM/10 ML SYR ONE ×2 (01:32→23:29)
[2020-03-13] MEDS ORDERED: AZITHROMYCIN 500 MG INJ IVPB ONE (01:32)
[2020-03-13] MEDS ORDERED: NA CHLORIDE 0.9% 250 ML ONE (01:32)
[2020-03-13] MEDS ORDERED: NA CHLORIDE 0.9% 1,000 ML ONE (01:32)
[2020-03-13] MEDS ORDERED: HEPARIN/D5W 25,000 UNIT/500 ML BAG IV SCH (02:00)
--- NOTE | 2020-03-13 02:40 | P.HP ---
Certification for Inpatient With expected LOS: >2 Midnights Patient will require the following post-hospital care: None Practitioner: I am a practitioner with admitting privileges, knowledge of patient current condition, hospital course, and medical plan of care. Services: Services provided to patient in accordance with Admission requirements found in Title 42 Section 412.3 of the Code of Federal Regulations <Ricardo Nicolas - Last Filed: 03/13/20 02:34> Patient History Date of Service: 03/13/20 Reason for admission: Acute hypoxic respiratory failure/ventilated patient History of Present Illness: 69-year-old female with past medical history of COPD who was brought to the emergency room via EMS secondary to having to be ventilated prior to arrival to the emergency room. EMS was called to the patient's home by the . Has a states that patient started feeling short of breath approximately 3 days ago. States that she has been needing to use her CPAP more often in the last 3 days. States that she was doing fine today and started feeling short of breath again. Patient went in the bedroom and was on her CPAP when noticed that the patient was becoming less responsive. Patient called EMS. When EMS arrived patient was hypoxic. Patient was started on a non-rebreather with oxygen saturations no greater than 60%. Patient was intubated and brought to ER. states that patient has had 6 intubations with of the last 1 being July of 2019. States that last time she was sent to [facility] in [place]. States that she saw her lung doctor in [facility] 2 or [address] Baldwin. In the emergency room lab work shows an elevated white cell count of 23 K, an elevated D-dimer of almost 5000. ABG pending, CRP pending UA pending. Patient is ventilated. Patient will be admitted to ICU and further evaluated. Home medications list reviewed: No - Past Medical/Surgical History -: COPD -: Right subclavian artery repair Psychosocial/ Personal History: Lives at home with . - Family History Family History: Reviewed- Non-Contributory - Social History Smoking Status: Former smoker Alcohol use: No CD- Drugs: No Caffeine use: No Place of Residence: Home <Maria IsabelFadyRicardo - Last Filed: 03/13/20 02:34> Date of Service: 03/13/20 <espinoza serrano - Last Filed: 03/13/20 17:44> Allergies No Known Allergies Allergy (Unverified 03/13/20 02:55) Review of Systems is unable to be obtained <Ricardo Nicolas - Last Filed: 03/13/20 02:34> Physical Examination - Vital Signs Blood Pressure: 176/67 Pulse: 97 Respirations: 12 Pulse Ox (%): 98 (Vent) - Physical Exam General: In no apparent distress, Other (Sedated) HEENT: Atraumatic, Normocephalic, PERRLA Neck: Supple, Other (Trachea midline, vent tube in place) Respiratory: Other (Ventilated) Cardiovascular: No edema, Normal pulses Capillary refill: <2 Seconds Gastrointestinal: Normal bowel sounds, Soft and benign Musculoskeletal: No swelling, No contractures, No erythema Integumentary: No rashes, No breakdown, No significant lesion - Studies Laboratory Data (last 24 hrs) 03/13/20 00:20: PT 11.1, INR 0.94 03/13/20 00:20: WBC 23.8 H*, Hgb 10.3 L, Hct 33.2 L, Plt Count 374 03/13/20 00:20: Sodium 138, Potassium 4.3, BUN 21 H, Creatinine 1.89 H, Glucose 302 H, Magnesium 2.5 H, Total Bilirubin 0.3, AST 15, ALT 17, Alkaline Phosphatase 123 H <Ricardo Nicolas - Last Filed: 03/13/20 02:34> - Studies Laboratory Data (last 24 hrs) 03/13/20 00:20: PT 11.1, INR 0.94 03/13/20 00:20: WBC 23.8 H*, Hgb 10.3 L, Hct 33.2 L, Plt Count 374 03/13/20 00:20: Sodium 138, Potassium 4.3, BUN 21 H, Creatinine 1.89 H, Glucose 302 H, Magnesium 2.5 H, Total Bilirubin 0.3, AST 15, ALT 17, Alkaline Phosphatase 123 H Microbiology Data (last 24 hrs): 03/13/20 00:23 Nasopharnyx Influenza Type A Antigen Screen - Final 03/13/20 00:23 Nasopharnyx Influenza Type B Antigen Screen - Final <espinoza serrano - Last Filed: 03/13/20 17:44> Assessment and Plan - Plan Impression: Acute hypoxic respiratory failure resulting in intubation and on a ventilator: Partially compensated respiratory acidosis: Pneumonia: Chronic kidney disease: History of COPD on home oxygen at 2 L nasal cannula with CPAP at night: Elevated cardiac enzymes: Plan: Acute hypoxic respiratory failure resulting in intubation and on a ventilator: Patient is on a ventilator. Continue propofol drip. Continue full-dose heparin secondary to an elevated D-dimer of 4857. Due to elevated creatinine levels cannot rule out PE. Continue ABGs. Partially compensated respiratory acidosis: ABG shows a pH of 7.22, a CO2 of 67.8, an O2 of 70.5 and a bicarb of 26.9. An anion gap of 10.3. Pneumonia: Elevated white cell count, elevated lactic acid of 2.4, chest x-ray with preliminary report showing pneumonia. Will continue IV Rocephin and IV azithromycin. Chronic kidney disease: Elevated creatinine of 1.89. Unknown baseline. History of COPD on home oxygen at 2 L nasal cannula with CPAP at night: Patient on ventilator. Elevated cardiac enzymes: Troponin of 0.37. Will continue to trend troponins. Continuous telemetry. Discharge Plan: Home Plan to discharge in: Greater than 2 days - Advance Directives Does patient have a Living Will: No Does patient have a Durable POA for Healthcare: No - Code Status/Comfort Care Code Status Assessed: Yes Time Spent Managing Pts Care (In Minutes): 70 <Ricardo Nicolas - Last Filed: 03/13/20 02:34> - Problems (Diagnosis) (1) Acute respiratory failure with hypoxia Current Visit: Yes Status: Acute (2) Pneumonia Current Visit: Yes Status: Acute (3) Elevated troponin Current Visit: Yes Status: Acute (4) Sepsis Current Visit: Yes Status: Acute Physician Review: Patient Assessed, Agree with Above Assessment and Plan Physician Review Additional Text: Acute respiratory failure with hypoxia. Extensive right-sided pneumonia. Elevated D-dimer Elevated troponin. Patient got a shot of IV Rocephin and Zithromax in the ED. She also got a shot of full-dose Lovenox. Pulmonary consult. Continue mechanical ventilation. IV hydration Discontinue heparin. Elevated D-dimer likely related to pneumonia and sepsis. Elevated troponin likely secondary to demand ischemia or sepsis. Placed Cardiology consult. <espinoza serrano - Last Filed: 03/13/20 17:44>
[2020-03-13 02:50] LABS: Arterial Blood Carboxyhemoglob 0.8 % (0-1.5); Blood Gas Oxyhemoglobin 86.7 % (94-97)
[2020-03-13 02:50] LABS: Barbiturates NEGATIVE (NEGATIVE); Benzodiazepines NEGATIVE (NEGATIVE); Cocaine NEGATIVE (NEGATIVE); METHAMPHETAM NEGATIVE (NEGATIVE); Methadone NEGATIVE (NEGATIVE); Opiates NEGATIVE (NEGATIVE); Phencyclidine NEGATIVE (NEGATIVE); THC Cannibis POSITIVE (NEGATIVE)
[2020-03-13 03:02] LABS: Blood Morphology Comment NOT SEEN (NOT SEEN); Platelet Estimate ADEQ
[2020-03-13 03:51] LABS: C-Reactive Protein < 2.90 mg/L (<3.00)
[2020-03-13 03:52] LABS: Troponin I 0.94 ng/mL (0.0-0.045)
[2020-03-13 04:07] LABS: Urine Blood 1+ (NEG); Urine Glucose 1+ (NEG); Urine Protein 2+ (NEG); Urine Specific Gravity 1.025 (1.005-1.030)
[2020-03-13 04:17] VITALS: BMI 35.6
[2020-03-13 04:32] LABS: Protime INR 0.98
[2020-03-13] MEDS ORDERED: HEPARIN/D5W 25,000 UNIT/500 ML BAG IV ONE (04:33)
[2020-03-13] MEDS ORDERED: propofoL 1,000 MG/100 ML VIAL IV PRN (04:39)
[2020-03-13] MEDS ORDERED: NA CHLORIDE 0.9% 500 ML IV ONE (04:41)
[2020-03-13] MEDS ORDERED: NA CHLORIDE 0.9% 1,000 ML IV SCH (05:00)
[2020-03-13] MEDS: INSULIN -REGULAR HUMAN 50 UNIT/0.5 ML ML SQ SCH ×3 (07:30→16:13)
[2020-03-13] MEDS ORDERED: Levofloxacin500mg IV 500 MG/100 ML BAG IV SCH (09:00)
[2020-03-13] MEDS ORDERED: CEFTRIAXONE 1 GM/NS 50 ML 1 GM/50 ML BAG IV SCH (09:00)
[2020-03-13] MEDS: ENOXAPARIN 100 MG/ML SYR SQ SCH (09:14)
[2020-03-13] MEDS ORDERED: ENOXAPARIN 100 MG/ML SYR SQ ONE (09:24)
[2020-03-13] MEDS ORDERED: Levofloxacin500mg IV 500 MG/100 ML BAG IV ONE (09:24)
--- NOTE | 2020-03-13 10:42 | RAD REPORT ---
EXAM DESCRIPTION: RAD - Abdomen 1 View (KUB) - 03/13/2020 4:44 am CLINICAL HISTORY: The patient is 69 years old and is Female; position of NGT TECHNIQUE: Single supine view of the abdomen/pelvis. COMPARISON: No relevant prior studies available. FINDINGS: Lower thorax: Multilobar infiltrate in the right lung. Gastrointestinal tract: No dilated bowel loops. Bones/joints: Degenerative changes in the spine with scoliosis. Tubes, lines and devices: Distal NG tube is at the GE junction. IMPRESSION: 1. Distal NG tube is at the GE junction. 2. Multilobar infiltrates in the right lung. Electronically signed by: Duyen Guzman MD 03/13/2020 4:56 AM CDT Due to temporary technical issues with the PACS/Fluency reporting system, reports are being signed by the in house radiologist without review as a courtesy to ensure prompt reporting. The interpreting r adiologist is fully responsible for the content of the report.
--- NOTE | 2020-03-13 10:43 | RAD REPORT ---
EXAM DESCRIPTION: RAD - Chest Single View - 03/13/2020 12:53 am CLINICAL HISTORY: The patient is 69 years old and is Female; POST ETT TECHNIQUE: Frontal view of the chest. COMPARISON: No relevant prior studies available. FINDINGS: LUNGS: Asymmetric opacification throughout the right lung is present specifically within the right lower lobe. PLEURAL SPACE: Unremarkable. No pneumothorax. HEART: The cardiac silhouette is prominent. MEDIASTINUM: Unremarkable. BONES/JOINTS: There are degenerative changes of the spine. VASCULATURE: Atherosclerosis of the aorta is noted. TUBES, LINES AND DEVICES: Endotracheal tube is present with the tip approximately 3.7 cm superio r to the shamir. IMPRESSION: 1. Endotracheal tube is present with the tip approximately 3.7 cm superior to the elkin na. 2. Asymmetric opacification throughout the right lung concerning for an infectious process. Superim posed asymmetric edema is within the differential. Underlying mass specifically in the right lower lo be is not completely excluded. Recommend continued follow-up to resolution. Electronically signed by: Nayely Hough MD 03/13/2020 1:10 AM CDT Due to temporary technical issues with the PACS/Fluency reporting system, reports are being signed by the in house radiologist without review as a courtesy to ensure prompt reporting. The interpreting r adiologist is fully responsible for the content of the report.
--- NOTE | 2020-03-13 12:17 | P.CNS ---
Date of Consult: 03/13/20 Chief Complaint: Acute hypoxic respiratory failure/ventilated patient History of Present Illness: Patient is 69 years of age with a history of COPD patient was intubated prior to arrival was found to have extensive pneumonia contact number listed is not in working order. Been having shortness of breath for 3 days using her CPAP at home patient became less responsive was found to be very hypoxic he has been intubated multiple times patient has a physicians in [place] found to have an elevated white count Most likely she has a history of coronary artery disease patient is on carvedilol and Plavix Allergies No Known Allergies Allergy (Unverified 03/13/20 02:55) Home Medications: Amlodipine [Norvasc*] 2.5 mg PO BID 03/13/20 Aspirin [Lo-Dose Aspirin EC] 81 mg PO DAILY 03/13/20 Atorvastatin Calcium 20 mg PO DAILY 03/13/20 Clopidogrel Bisulfate [Plavix*] 75 mg PO DAILY 03/13/20 Diazepam [Valium] 5 mg PO Q8HP PRN 03/13/20 Furosemide 40 mg PO DAILY 03/13/20 Isosorbide [place] (Bid) [Ismo 10 mg Tab*] 10 mg PO BID 03/13/20 Losartan Potassium 12.5 mg PO 03/13/20 Vitamin D [Drisdol*] 50,000 mcg PO BID 03/13/20 carvediloL [Carvedilol] 6.25 mg PO BID 03/13/20 - Past Medical/Surgical History -: COPD -: Right subclavian artery repair Psychosocial/ Personal History: Lives at home with . - Social History Smoking Status: Unknown if ever smoked Alcohol use: No CD- Drugs: No Caffeine use: No Place of Residence: Home Review of Systems is unable to be obtained Physical Examination Temp Pulse Resp BP Pulse Ox 98.2 F 60 16 104/48 L 99 03/13/20 04:00 03/13/20 06:45 03/13/20 06:45 03/13/20 06:45 03/13/20 06:45 General: Unresponsive Neck: Supple Respiratory: Diminished Cardiovascular: No edema, Regular rate/rhythm Gastrointestinal: Normal bowel sounds, Soft and benign, Other Musculoskeletal: No swelling Integumentary: No rashes, No breakdown Laboratory Data (last 24 hrs) 03/13/20 00:20: PT 11.1, INR 0.94 03/13/20 00:20: WBC 23.8 H*, Hgb 10.3 L, Hct 33.2 L, Plt Count 374 03/13/20 00:20: Sodium 138, Potassium 4.3, BUN 21 H, Creatinine 1.89 H, Glucose 302 H, Magnesium 2.5 H, Total Bilirubin 0.3, AST 15, ALT 17, Alkaline Phosphatase 123 H - Problems (1) Respiratory failure Current Visit: Yes Status: Acute Plan: Patient is 69 years of age admitted with respiratory failure she has a extensive opacification on the right side did white count history of recurrent intubations her physicians are in [place] I have added levofloxacin sputum cultures hemodynamically stable will titrate O2 down to 90% anti coagulated with Lovenox troponins are probably elevated from hypoxemia records from [place] occluding the discharge summary Qualifiers: Chronicity: acute on chronic
--- NOTE | 2020-03-13 13:50 | P.PN ---
Subjective Date of Service: 03/13/20 Chief Complaint: Acute hypoxic respiratory failure/ventilated patient Patient intubated and on mechanical ventilation. She cannot give any subjective complain. She is stable on the vent. Noted troponin trended up. Physical Examination - Vital Signs Temperature: 98.6 F Blood Pressure: 120/62 Pulse: 62 Respirations: 16 Pulse Ox (%): 99 - Physical Exam General: Other (Sedated) HEENT: Other (ETT) Neck: Supple Respiratory: Crackles/rales (Right chest) Cardiovascular: No edema, Regular rate/rhythm, Normal S1 S2 Gastrointestinal: Normal bowel sounds, Soft and benign, Non-distended, No tenderness Musculoskeletal: No swelling, No erythema Neurological: Other (Sedated) Urinary: Feldman catheter - Studies Laboratory Data (last 24 hrs) 03/13/20 00:20: PT 11.1, INR 0.94 03/13/20 00:20: WBC 23.8 H*, Hgb 10.3 L, Hct 33.2 L, Plt Count 374 03/13/20 00:20: Sodium 138, Potassium 4.3, BUN 21 H, Creatinine 1.89 H, Glucose 302 H, Magnesium 2.5 H, Total Bilirubin 0.3, AST 15, ALT 17, Alkaline Phosph atase 123 H Microbiology Data (last 24 hrs): 03/13/20 00:23 Nasopharnyx Influenza Type A Antigen Screen - Final 03/13/20 00:23 Nasopharnyx Influenza Type B Antigen Screen - Final Assessment And Plan - Current Problems (Diagnosis) (1) Acute respiratory failure with hypoxia Current Visit: Yes Status: Acute (2) Pneumonia Current Visit: Yes Status: Acute (3) Elevated troponin Current Visit: Yes Status: Acute (4) Sepsis Current Visit: Yes Status: Acute - Plan Continue mechanical ventilation. Pulmonary input appreciated. COVID 19 negative. Antibiotics changed to IV levaquin. Will add IV vancomycin. Obtain tracheal aspirate for culture. Follow blood cultures. Dr. Cheng is following. Elevated troponin likely secondary to sepsis and demand ischemia. Patient received 1 dose of full-dose Lovenox this morning. Cardiology consult. Echocardiogram is pending. Insulin sliding scale for hyperglycemia management.
[2020-03-13] MEDS ORDERED: VANCOMYCIN/NS 1 gm 1 GM/250 ML BAG IVPB SCH (14:15)
[2020-03-13] MEDS ORDERED: VANCOMYCIN 1.75 GM in NA CHLORIDE 0.9% 500 ML IVPB SCH (15:00)
--- NOTE | 2020-03-13 16:10 | P.DS ---
Admission Date: 03/13/20 Discharge Date: 03/17/20 Disposition: TRANSFER TO [facility] Reason for Admission: Acute hypoxic respiratory failure/ventilated patient Consultations: Pulmonary-Dr. Cheng. - Problems (1) Acute respiratory failure with hypoxia Current Visit: Yes Status: Acute (2) Pneumonia Current Visit: Yes Status: Acute (3) Elevated troponin Current Visit: Yes Status: Acute (4) Sepsis Current Visit: Yes Status: Acute Brief History of Present Illness: 69-year-old woman with a history of COPD on CPAP at home was brought to the [facility] department due to severe hypoxia. EMS was called to her home and they found her very hypoxic, oxygen saturation of 60% with 100% non-rebreather mask. Patient was intubated and ventilation started before she was brought to the emergency department. She was hooked to a mechanical ventilator. Chest x-ray demonstrated significant right lung pneumonia. Blood work showed evidence of sepsis with severe leukocytosis, white cell count of 23,000. She was initially hypertensive but later became hypotensive. She was given a bolus of normal saline, started on IV antibiotics and admitted for further management. Hospital Course: Patient admitted to the ICU on mechanical ventilation. Her D-dimer was elevated. Troponin was also elevated. She received a shot of full-dose Lovenox. Have patient was seen by Dr. Cheng for pulmonary consultation. Antibiotics switched to IV Levaquin. Patient also treated with IV steroid. Patient was extubated the next day after hospitalization. She could not tolerate oxygen by nasal cannula and BiPAP and got intubated again within an hour. She has been stable on mechanical ventilation. Patient had a rectal bleed. Lovenox anticoagulation was discontinued. Patient was given PRBC transfusion. Her hemoglobin has been stable still blood transfusion and she's had no more rectal bleed. 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 Patient has been accepted for transfer. Her vitals are currently stable for transfer. Vital Signs/Physical Exam: Temp Pulse Resp BP Pulse Ox 98.6 F 62 16 120/62 99 03/13/20 14:00 03/13/20 14:00 03/13/20 14:00 03/13/20 14:00 03/13/20 14:00 Laboratory Data at Discharge: WBC 23.8 K/uL (4.3-10.9) H* 03/13/20 00:20 Hgb 10.3 g/dL (12.0-15.0) L 03/13/20 00:20 Hct 33.2 % (36.0-45.0) L 03/13/20 00:20 Plt Count 374 K/uL (152-406) 03/13/20 00:20 PT 11.6 SECONDS (9.5-12.5) 03/13/20 04:13 INR 0.98 03/13/20 04:13 APTT Cancelled 03/13/20 08:30 Sodium 138 mmol/L (136-145) 03/13/20 00:20 Potassium 4.3 mmol/L (3.5-5.1) 03/13/20 00:20 BUN 21 mg/dL (7-18) H 03/13/20 00:20 Creatinine 1.89 mg/dL (0.55-1.3) H 03/13/20 00:20 Glucose 302 mg/dL (74-106) H 03/13/20 00:20 Magnesium 2.5 mg/dL (1.8-2.4) H 03/13/20 00:20 Total Bilirubin 0.3 mg/dL (0.2-1.0) 03/13/20 00:20 AST 15 U/L (15-37) 03/13/20 00:20 ALT 17 U/L (12-78) 03/13/20 00:20 Alkaline Phosphatase 123 U/L (45-117) H 03/13/20 00:20 Troponin I 2.57 ng/mL (0.0-0.045) H* 03/13/20 10:52 Home Medications: Amlodipine [Norvasc*] 2.5 mg PO BID 03/13/20 Aspirin [Lo-Dose Aspirin EC] 81 mg PO DAILY 03/13/20 Atorvastatin Calcium 20 mg PO DAILY 03/13/20 Clopidogrel Bisulfate [Plavix*] 75 mg PO DAILY 03/13/20 Diazepam [Valium] 5 mg PO Q8HP PRN 03/13/20 Furosemide 40 mg PO DAILY 03/13/20 Isosorbide [place] (Bid) [Ismo 10 mg Tab*] 10 mg PO BID 03/13/20 Losartan Potassium 12.5 mg PO BID 03/13/20 Vitamin D [Drisdol*] 50,000 mcg PO BID 03/13/20 carvediloL [Carvedilol] 6.25 mg PO BID 03/13/20
[2020-03-13] MEDS ORDERED: CEFTRIAXONE/SWI 1gm 1 GM/10 ML SYR IVP SCH (21:00)
[2020-03-13] MEDS ORDERED: AZITHROMYCIN IV 500 MG in NA CHLORIDE 0.9% 250 ML IVPB SCH (21:00)
[2020-03-13] MEDS ORDERED: NA CHLORIDE 0.9% 0 ML ONE (22:46)
[2020-03-14] MEDS: propofoL 1,000 MG/100 ML VIAL IV PRN ×4 (01:39→22:00)
[2020-03-14] MEDS ORDERED: propofoL 1,000 MG/100 ML VIAL IV ONE ×4 (05:17→22:13)
[2020-03-14 05:38] LABS: Albumin 2.8 g/dL (3.4-5.0); Bilirubin Total 0.4 mg/dL (0.2-1.0); Potassium 3.3 mmol/L (3.5-5.1); Protein, Total 6.2 g/dL (6.4-8.2)
[2020-03-14] MEDS: INSULIN -REGULAR HUMAN 50 UNIT/0.5 ML ML SQ SCH ×4 (05:50→17:50)
--- NOTE | 2020-03-14 05:57 | EKG ---
Test Date: 2020-03-13 Test Time: 00:07:20 [employer]: [employer] MEASUREMENT RESULTS: Intervals: Rate: 99 MO: 188 QRSD: 90 QT: 372 QTc: 477 [place]ha: P: 77 MO: 188 QRS: 40 T: 80 INTERPRETIVE STATEMENTS: Normal sinus rhythm Possible Anterior infarct, age undetermined Abnormal ECG Compared to ECG 08/18/2006 09:59:43 Myocardial infarct finding now present Electronically Signed On 03-14-20 05:55:28 CDT by Dinesh Simpson
[2020-03-14 06:22] LABS: Arterial Blood Carboxyhemoglob 1.1 % (0-1.5); Blood Gas Oxyhemoglobin 90.7 % (94-97); Blood O2 Saturation 93.2 % (92-98.5)
[2020-03-14 06:54] LABS: Hematocrit 22.7 % (36.0-45.0); Lymphocytes % 15.5 % (15.3-44.8); MPV 9.8 fL (7.6-11.3); RBC Red Blood Cell Count 3.09 M/uL (3.86-4.86)
--- NOTE | 2020-03-14 08:21 | RAD REPORT ---
EXAM DESCRIPTION: Irasema Single View03/14/2020 8:00 am CLINICAL HISTORY: Shortness of breath COMPARISON: March 13, 2020 FINDINGS: Improvement in the right lung consolidation Left lung appears clear. Heart is mildly enlarged. Endotracheal tube has its tip well above the shamir. Nasogastric tube has i ts tip stomach IMPRESSION: Improvement in the right lung consolidation
--- NOTE | 2020-03-14 08:35 | ECHO ---
HEIGHT: 5 ft 6 in WEIGHT: 220 lb 8 oz DATE OF STUDY: 03/13/[address]: Ricardo Nicolas 2-DIMENSIONAL: YES M.MODE: YES DOPPLER: YES COLOR FLOW: YES TDS: YES PORTABLE: YES DEFINITY: NO BUBBLE STUDY: NO DIAGNOSIS: ELEVATED CARDIAC ENZYMES CARDIAC HISTORY: CATHERIZATION: NO SURGERY: NO PROSTHETIC VALVE: NO PACEMAKER: NO MEASUREMENTS (cm) DIASTOLIC (NORMALS) SYSTOLIC (NORMALS) IVSd 1.1 (0.6-1.2) LA Diam 3.8 (1.9-4.0) LVEF 58% LVIDd 4.6 (3.5-5.7) LVIDs 3.2 (2.0-3.5) %FS 30% LVPWd 1.1 (0.6-1.2) Ao Diam 2.5 (2.0-3.7) 2 DIMENSIONAL ASSESSMENT: RIGHT ATRIUM: NORMAL LEFT ATRIUM: NORMAL RIGHT VENTRICLE: NORMAL LEFT VENTRICLE: NORMAL TRICUSPID VALVE: NORMAL MITRAL VALVE: MITRAL ANNULAR CALCIFICATION PULMONIC VALVE: NORMAL AORTIC VALVE: NORMAL PERICARDIAL EFFUSION: NONE AORTIC ROOT: NORMAL LEFT VENTRICULAR WALL MOTION: NORMAL DOPPLER/COLOR FLOW: MILD TRICUSPID REGURGITATION. NORMAL RIGHT VENTRICULAR SYSTOLIC PRESSURE. COMMENTS: MILD TRICUSPID REGURGITATION. NORMAL RIGHT VENTRICULAR SYSTOLIC PRESSURE. NORMAL LEFT VENTRICULAR SIZE AND FUNCTION. NO WALL MOTION ABNORMALITY. NO EFFUSION. TECHNOLOGIST: Jennifer DHILLON
[2020-03-14] MEDS: ASPIRIN 81 MG CHEWABLE TABLET PO SCH (09:00)
--- NOTE | 2020-03-14 09:46 | CON ---
Date of Consultation: 03/14/2020 Reason For Consultation: Respiratory failure requiring intubation and positive troponin. History Of Present Illness: Ms. Koroma is a 69-year-old woman with history of coronary artery dise ase, congestive heart failure, hypertension, dyslipidemia, and COPD. Had treated herself with BiPAP at home, but eventually was found unresponsive, brought to the emergency room where she was found mk y hypoxic and hypercapnic. She was intubated. No reports of chest pain, palpitations, syncope, feve r or chills, but the white count was elevated at 24,000. She was found to have sepsis and pneumonia. Her troponin was 5.17. Her BNP was 515. Echocardiogram, which was done yesterday was normal witho ut any wall motion abnormalities or effusion. Past Medical History: Otherwise as stated above. Allergies: NONE. Review of Systems: Unobtainable. Social History: Unobtainable. Family History: Unobtainable. Medications: Her medications at home include aspirin, Plavix, Lipitor, Norvasc, losartan, Lasix, Imd ur and Coreg. Physical Examination: General: She was intubated. Vital Signs: Her initial blood gases with PO2 of 70, pCO2 of 68, pH is 7.22. HEENT: Negative. Neck: Supple with no bruit. Chest: Revealed crackles throughout with expiratory wheezing. Cardiac: Exam revealed a regular rhythm and rate. No murmurs, gallops, or rubs. Abdomen: Obese, but benign. Extremities: Revealed no clubbing, cyanosis, or edema. Diagnostic Data: As stated earlier. EKG was normal. Impression And Plan: 1.Respiratory failure, possibly secondary to pneumonia and congestive heart failure, which is probab ly acute on chronic diastolic. 2.Pneumonia and sepsis. 3.History of coronary artery disease. 4.History of hypertension. 5.History of dyslipidemia. 6.Chronic obstructive pulmonary disease. The patient is intubated. She has been treated with antibiotic. She is on heparin. She is hemodyna mically stable. Echocardiogram was normal. She obviously is intubated and unable to take any of her p.o. medication. Today will be resumed after she gets extubated. There is apparently a plan to tra nsfer her to [facility]. I will sign off her case. NB/MODL Voice ID: [id number] Report ID: [id number]
[2020-03-14] MEDS: Levofloxacin 250mg IV 250 MG/50 ML BAG IV SCH (09:55)
[2020-03-14] MEDS: ENOXAPARIN 100 MG/ML SYR SQ SCH (10:09)
[2020-03-14] MEDS ORDERED: ENOXAPARIN 100 MG/ML SYR SQ ONE (10:18)
--- NOTE | 2020-03-14 12:09 | P.PN ---
Subjective Date of Service: 03/14/20 Chief Complaint: Acute hypoxic respiratory failure/ventilated patient Subjective: Improving (Patient is doing much better more responsive hemodynamically stable) Review of Systems is unable to be obtained Physical Examination - Vital Signs Temperature: 97.8 F Blood Pressure: 122/35 Pulse: 59 Respirations: 16 Pulse Ox (%): 98 - Physical Exam General: Cooperative Respiratory: Clear to auscultation bilaterally, Crackles/rales (Crackles on the right side) Cardiovascular: No edema, Regular rate/rhythm Assessment & Plan - Problems (Diagnosis) (1) Respiratory failure Current Visit: Yes Status: Acute Plan: Patient admitted with respiratory failure he is clinically doing much better no evidence of sepsis continue with levofloxacin chest x-ray maybe a little better vital signs stable cultures all negative sputum cultures also negative family requests transfer to [facility] 10 to wean and extubate today patient is mildly anemic troponins elevated echocardiogram normal Dc vancomycin continue with anticoagulation Qualifiers: Chronicity: acute on chronic Physician Review: Patient Assessed, Agree with Above Assessment and Plan Physician Review Additional Text: Acute respiratory failure with hypoxia. Extensive right-sided pneumonia. Elevated D-dimer Elevated troponin. Patient got a shot of IV Rocephin and Zithromax in the ED. She also got a shot of full-dose Lovenox. Pulmonary consult. Continue mechanical ventilation. IV hydration Discontinue heparin. Elevated D-dimer likely related to pneumonia and sepsis. Elevated troponin likely secondary to demand ischemia or sepsis. Placed Cardiology consult.
--- NOTE | 2020-03-14 14:00 | P.PN ---
Subjective Date of Service: 03/14/20 Chief Complaint: Acute hypoxic respiratory failure/ventilated patient Patient intubated and on mechanical ventilation. Clinically stable. Troponin trended up to 5.17. Hemoglobin dropped to 7.4 Patient was extubated this afternoon, she did not tolerate oxygen by nasal cannula and BiPAP. She had to be reintubated. Chest x-ray is though better than yesterday. Nurse reports bloody bowel movement today. Physical Examination - Vital Signs Temperature: 97.8 F Blood Pressure: 122/35 Pulse: 59 Respirations: 16 Pulse Ox (%): 98 - Physical Exam General: Other (Sedated) HEENT: Other (Intubated) Neck: Supple Respiratory: Crackles/rales (Right lung) Cardiovascular: No edema, Regular rate/rhythm, Normal S1 S2 Gastrointestinal: Normal bowel sounds, Soft and benign, Non-distended, No tenderness Musculoskeletal: No swelling, No erythema Integumentary: No rashes Neurological: Other (Sedated. She moves all extremities.) Assessment And Plan - Current Problems (Diagnosis) (1) Acute respiratory failure with hypoxia Current Visit: Yes Status: Acute (2) Pneumonia Current Visit: Yes Status: Acute (3) Elevated troponin Current Visit: Yes Status: Acute (4) Sepsis Current Visit: Yes Status: Acute - Plan Patient reintubated. Continue mechanical ventilation. Discontinue anticoagulation. SCD for DVT prophylaxis. Patient we transfused 2 units PRBC given active bleeding and hemoglobin drop. Started her on IV protonix Continue IV antibiotics Serial chest x-ray Pulmonary is following. Cardiology input appreciated. Daughter requested for transfer to [facility]. Patient has been accepted for transfer pending bed availability.
[2020-03-14] MEDS ORDERED: DIAZEPAM 5 MG TABLET PO PRN (14:32)
[2020-03-14] MEDS ORDERED: RSI MEDICATION KIT IV ONE (14:58)
[2020-03-14] MEDS ORDERED: ROCURONIUM 50 MG/5 ML VIAL IV ONE ×2 (15:00→15:25)
[2020-03-14] MEDS ORDERED: LORazepam 2 MG/ML VIAL IV PRN (15:08)
[2020-03-14] MEDS ORDERED: SODIUM CHLORIDE 0.9% 10ML INJ IV PRN (15:23)
[2020-03-14] MEDS ORDERED: ETOMIDATE 20 MG/10 ML VIAL IV ONE (15:25)
[2020-03-14] MEDS ORDERED: NA CHLORIDE 0.9% 250 ML IV SCH (16:00)
[2020-03-14] MEDS ORDERED: NS 0.9% VIAL 20 ML ONE (16:49)
--- NOTE | 2020-03-14 17:03 | RAD REPORT ---
EXAM DESCRIPTION: RAD - Chest Single View - 03/14/2020 4:14 pm CLINICAL HISTORY: re-intubationrespiratory distress COMPARISON: Portable March 14 TECHNIQUE: AP portable chest image was obtained 03/14/2020 4:14 pm . FINDINGS: Endotracheal tube is in place. Tip is mid aortic arch level. NG tube is visible but tip is not well visualized. No new or progressive left lung field finding. Dense opacification over the lower right lung field cameron s not clearly changed. Right upper lobe airspace opacification has worsened. Heart and vasculature are normal. No measurable pleural effusion and no pneumothorax. No acute bony abnormality seen. No acute aortic findings suspected. IMPRESSION: Endotracheal tube in good position. NG tube is not adequately visualized to assess posit ioning. Worsening right upper lobe infectious or aspiration pneumonia. Opacification over the lower right lung field similar to comparison.
[2020-03-14 17:19] LABS: Blood O2 Saturation 97.9 % (92-98.5)
[2020-03-14 17:20] LABS: Arterial Blood Carboxyhemoglob 0.5 % (0-1.5); Blood Gas Oxyhemoglobin 95.7 % (94-97)
--- NOTE | 2020-03-14 17:38 | RAD REPORT ---
EXAM DESCRIPTION: RAD - Chest Single View - 03/14/2020 5:17 pm CLINICAL HISTORY: Cl placement COMPARISON: March 14 TECHNIQUE: AP portable chest image was obtained 03/14/2020 5:17 pm . FINDINGS: Left jugular central line has been placed. Tip is mid SVC. No pneumothorax. Right lung par enchymal opacification has not changed. NG tube is better visualized. Tip is still poorly seen but is below the diaphragm. IMPRESSION: Left jugular central line placement with tip in the mid SVC. No pneumothorax.
--- NOTE | 2020-03-14 18:01 | CON ---
Date of Consultation: 03/14/2020 Reason For Consultation: Stat IV access required. History Of Present Illness: The patient is a 69-year-old female, who came in with acute hypoxic resp iratory failure, who is intubated, has a 24 gauge IV, which is very tenuous at best. Cannot get anot her IV access and there is no PICC line nurse available right now. Therefore, I was called to place a central line. Informed consent was obtained from the , who understood risks, benefits and a lternatives, agreed to the procedure. The patient is on a Diprivan drip, but awake and understands s ituation. Review of Systems: Otherwise unremarkable. Past Medical History: COPD, right subclavian artery repair. Allergies: REVIEWED, NONE. Social History: She does not smoke anymore and does not drink alcohol. Family History: Noncontributory. Physical Examination: Vital Signs: Currently are stable. She is afebrile. General: She is awake, but under Diprivan. Head and Neck: No masses. Chest: Clear. Heart: S1, S2. Abdomen: Soft. Extremities: Neurovascularly intact. Neuro: Nonfocal. Laboratory Data: Reviewed. Her white count on admission was 23.8, today 6.2. Platelets are 173. I NR is 0.98. Assessment: A 69-year-old female with multiple medical problems, respiratory failure, required IV ac cess. Plan: We will place a central line. understands the risks, benefits and alternatives, and a grees to procedure. Procedure Note: The patient was prepped and draped in the usual sterile fashion in the left IJ area. An 18-gauge needle was used to access the left IJ after lidocaine 1% was infiltrated and then guide wire passed and then Seldinger technique used and vein dilated. Tip of the catheter was placed at ap proximately 18 cm and then flushed with heparin and packed with heparin, secured to the neck with 3-0 nylon. Sterile dressing applied, and chest x-ray has been ordered. The patient tolerated the proce dure in stable condition. /MODL Voice ID: [id number] Report ID: [id number]
[2020-03-14] MEDS ORDERED: NA CHLORIDE 0.9% 250 ML ONE (20:30)
[2020-03-14] MEDS ORDERED: ENOXAPARIN 100 MG/ML SYR SQ SCH (21:00)
[2020-03-14] MEDS: PANTOPRAZOLE 40 MG INJ IVP SCH (21:47)
[2020-03-14] MEDS ORDERED: PANTOPRAZOLE 40 MG INJ ONE (21:58)
[2020-03-15] MEDS: propofoL 1,000 MG/100 ML VIAL IV PRN ×6 (01:00→21:47)
[2020-03-15 01:52] LABS: Hematocrit 29.6 % (36.0-45.0)
[2020-03-15] MEDS ORDERED: propofoL 1,000 MG/100 ML VIAL IV ONE ×6 (02:27→21:57)
[2020-03-15] MEDS: INSULIN -REGULAR HUMAN 50 UNIT/0.5 ML ML SQ SCH ×4 (06:00→18:00)
--- NOTE | 2020-03-15 08:22 | RAD REPORT ---
EXAM DESCRIPTION: RAD - Chest Single View - 03/15/2020 6:40 am CLINICAL HISTORY: Intubated Chest pain. COMPARISON: Chest Single View dated 03/14/2020; Chest Single View dated 03/14/2020; Chest Single View dated 03/14/2020; Abdomen 1 View (KUB) dated 03/13/2020 FINDINGS: Portable technique limits examination quality. Bilateral pulmonary opacities are noted, slightly greater on the right, an without interval change si nce comparative study. The heart is moderately enlarged with aortic atherosclerosis. Left-sided inter nal jugular venous catheter has tip in the SVC. Enteric tube descends into the stomach. Tip of the en dotracheal tube appears above the shamir.
[2020-03-15] MEDS: ASPIRIN 81 MG CHEWABLE TABLET PO SCH (09:00)
[2020-03-15 09:10] LABS: Urine Appearance CLEAR; Urine Bilirubin NEGATIVE (NEG); Urine Blood NEGATIVE (NEG); Urine Color YELLOW; Urine Glucose NEGATIVE (NEG); Urine Protein 1+ (NEG); Urine Urobilinogen 0.2 mg/dL (0.2-1.0)
[2020-03-15 09:12] LABS: Urine Microscopic Reflex ORDER UMIC
[2020-03-15 09:25] LABS: Urine Bacteria <20 /HPF (<20); Urine Culture Reflex Order NOT NEEDED; Urine RBC <5 /HPF (NONE SEEN)
[2020-03-15 09:28] LABS: Potassium 3.1 mmol/L (3.5-5.1)
[2020-03-15] MEDS ORDERED: NS 0.9% VIAL 10 ML ONE (09:54)
[2020-03-15] MEDS ORDERED: PANTOPRAZOLE 40 MG INJ ONE ×2 (09:54→21:57)
[2020-03-15] MEDS: Levofloxacin 250mg IV 250 MG/50 ML BAG IV SCH (09:57)
[2020-03-15] MEDS: PANTOPRAZOLE 40 MG INJ IVP SCH ×2 (09:58→21:46)
--- NOTE | 2020-03-15 11:41 | P.PN ---
Subjective Date of Service: 03/15/20 Chief Complaint: Acute hypoxic respiratory failure/ventilated patient Patient was extubated yesterday passed a spontaneous breathing trial then developed respiratory distress and had to be Re intubated she is currently alert responsive cooperative obeying commands requiring minimal oxygen chest x-ray shows some haziness on the right side vital signs are stable all cultures are negative Review of Systems is unable to be obtained Physical Examination - Vital Signs Temperature: 98 F Blood Pressure: 125/70 Pulse: 59 Respirations: 15 Pulse Ox (%): 95 - Physical Exam General: Cooperative Respiratory: Clear to auscultation bilaterally, Diminished (Slightly diminished on the right side) Cardiovascular: No edema, Regular rate/rhythm Gastrointestinal: Normal bowel sounds, Soft and benign Assessment & Plan - Problems (Diagnosis) (1) Respiratory failure Current Visit: Yes Status: Acute Plan: Patient admitted with respiratory failure was extubated had to be intubated she is being intubated numerous time chest x-rays abnormal haziness on the right side of all of ordered a CT pulmonary angiogram all cultures negative patient is mildly hypernatremic hypokalemic patient developed respiratory distress yesterday became hypercapnic acidotic white count is normal hemoglobin satisfactory awaiting records in discharge summary from [facility] patient has been requesting transfer to the [facility] awaiting bed no evidence of any bleeding may have upper air obstruction that is triggered this recurrent respiratory failure Qualifiers: Chronicity: acute on chronic Physician Review: Patient Assessed, Agree with Above Assessment and Plan Physician Review Additional Text: Acute respiratory failure with hypoxia. Extensive right-sided pneumonia. Elevated D-dimer Elevated troponin. Patient got a shot of IV Rocephin and Zithromax in the ED. She also got a shot of full-dose Lovenox. Pulmonary consult. Continue mechanical ventilation. IV hydration Discontinue heparin. Elevated D-dimer likely related to pneumonia and sepsis. Elevated troponin likely secondary to demand ischemia or sepsis. Placed Cardiology consult.
--- NOTE | 2020-03-15 13:33 | P.PN ---
Subjective Date of Service: 03/15/20 Chief Complaint: Acute hypoxic respiratory failure/ventilated patient Patient is stable on the ventilator Posttransfusion hemoglobin is up to 9.7 Chest x-ray: No change from yesterday No active bleeding reported today. Physical Examination - Vital Signs Temperature: 98 F Blood Pressure: 128/60 Pulse: 56 Respirations: 16 Pulse Ox (%): 96 - Physical Exam General: Other (Sedated) HEENT: Other (ETT) Neck: Supple Respiratory: Other (Bilateral upper airway transmitted sounds.) Cardiovascular: No edema, Regular rate/rhythm, Normal S1 S2 Gastrointestinal: Normal bowel sounds, Soft and benign, No tenderness Musculoskeletal: No swelling, No erythema Integumentary: No rashes Assessment And Plan - Current Problems (Diagnosis) (1) Acute respiratory failure with hypoxia Current Visit: Yes Status: Acute (2) Pneumonia Current Visit: Yes Status: Acute (3) Elevated troponin Current Visit: Yes Status: Acute (4) Sepsis Current Visit: Yes Status: Acute - Plan Continue mechanical ventilation. All anticoagulation discontinued. Status post 2 units PRBC transfusion She is on IV protonix Continue IV antibiotics Serial chest x-ray Pulmonary is following. Cardiology input appreciated. Elevated troponin secondary to sepsis and induced ischemia. Daughter request transfer to [facility]. Patient has been accepted for transfer pending bed availability. Physician Review: Patient Assessed, Agree with Above Assessment and Plan
--- NOTE | 2020-03-15 14:06 | RAD REPORT ---
EXAM DESCRIPTION: CT - Chest For Pe Angio - 03/15/2020 1:47 pm CLINICAL HISTORY: sob COMPARISON: None. TECHNIQUE: Dynamically enhanced axial 3 mm thick images of the chest were obtained during administra tion of <100> mL Isovue 370 IV contrast. Coronal and oblique reconstruction images were generated and reviewed. Exam utilizes a protocol for optimal evaluation of pulmonary arterial tree. Maximum intensity projections 3D imaging was utilized All CT scans are performed using dose optimization technique as appropriate and may include automated exposure control or mA/KV adjustment according to patient size. FINDINGS: A pulmonary embolus is not seen. A thoracic aortic aneurysm is not noted. A pleural effusion is not seen. A pericardial effusion is not seen. Moderate to marked ground-glass opacities right upper and right lower lobes. Mild ground-glass opacit y right middle lobe. 3.5 centimeter opacity medial aspect upper segment left lower lobe. Small bilateral pleural effusions Mild left infrahilar lymphadenopathy Nasogastric tube within the stomach. An endotracheal tube has its tip at the shamir. It is pointing towards the right mainstem bronchus. I t. It should be retracted a couple millimeters IMPRESSION: Negative for a pulmonary embolism. An endotracheal tube has its tip at the shamir. It is pointing towards the right mainstem bronchus. I t. It should be retracted a couple millimeters 3.5 centimeter opacity medial aspect upper segment left lower lobe. This may represent a mass, atelec tasis or inflammation. Followup CT in a couple of weeks is recommended. If it does not resolve/decrea se in size than bronchoscopy would recommended. [id number] ground globes opacities right lung may represent pneumonia
[2020-03-15 18:38] VITALS: O2SAT 97
[2020-03-16] MEDS ORDERED: propofoL 1,000 MG/100 ML VIAL IV ONE ×4 (00:50→08:40)
[2020-03-16] MEDS: propofoL 1,000 MG/100 ML VIAL IV PRN ×7 (01:23→20:37)
[2020-03-16] MEDS: INSULIN -REGULAR HUMAN 50 UNIT/0.5 ML ML SQ SCH ×4 (06:00→18:00)
[2020-03-16 06:12] LABS: Basophils % 0.5 % (0-1.3); Hematocrit 28.3 % (36.0-45.0); Lymphocytes % 14.4 % (15.3-44.8); MPV 9.6 fL (7.6-11.3); RBC Red Blood Cell Count 3.73 M/uL (3.86-4.86)
[2020-03-16 06:20] LABS: Potassium 2.8 mmol/L (3.5-5.1)
[2020-03-16] MEDS: KCL 20 MEQ/100 mL IVPB 20 MEQ/100 ML BAG IV SCH ×3 (07:10→12:00)
[2020-03-16] MEDS ORDERED: KCL 20 MEQ/100 mL IVPB 60 MEQ/300 ML BAG IV ONE (07:24)
[2020-03-16] MEDS ORDERED: NA CHLORIDE 0.9% 500 ML ONE (07:27)
[2020-03-16] MEDS ORDERED: PANTOPRAZOLE 40 MG INJ ONE ×2 (08:39→20:52)
[2020-03-16] MEDS: Levofloxacin 250mg IV 250 MG/50 ML BAG IV SCH (09:00)
[2020-03-16] MEDS: PANTOPRAZOLE 40 MG INJ IVP SCH ×2 (09:01→20:43)
--- NOTE | 2020-03-16 11:50 | P.PN ---
Subjective Date of Service: 03/16/20 Chief Complaint: Acute hypoxic respiratory failure/ventilated patient patient's condition is stable currently on a ventilator no change has some wheezing Review of Systems is unable to be obtained Physical Examination - Vital Signs Temperature: 98.2 F Blood Pressure: 105/47 Pulse: 51 Respirations: 15 Pulse Ox (%): 98 - Physical Exam General: Unresponsive ( on a propofol drip) Respiratory: Expiratory wheezes Cardiovascular: No edema, Regular rate/rhythm Assessment & Plan - Problems (Diagnosis) (1) Respiratory failure Current Visit: Yes Status: Acute Plan: patient is currently in stable condition discuss with the daughter recurrent intubations as a history of GI bleed and a stent placement 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 Extensive right-sided pneumonia. Elevated D-dimer Elevated troponin. Patient got a shot of IV Rocephin and Zithromax in the ED. She also got a shot of full-dose Lovenox. Pulmonary consult. Continue mechanical ventilation. IV hydration Discontinue heparin. Elevated D-dimer likely related to pneumonia and sepsis. Elevated troponin likely secondary to demand ischemia or sepsis. Placed Cardiology consult.
[2020-03-16] MEDS: METHYLPREDNISOLONE 125 MG INJ IV SCH ×2 (12:00→20:42)
[2020-03-16] MEDS: ARFORMOTEROL TARTRATE 15 MCG/2 ML VIAL.NEB NEB SCH ×2 (12:00→20:10)
--- NOTE | 2020-03-16 13:24 | P.PN ---
Subjective Date of Service: 03/16/20 Chief Complaint: Acute hypoxic respiratory failure/ventilated patient Patient is stable on the ventilator. No major changes from yesterday. Hemoglobin is stable. No active bleeding reported today. Physical Examination - Vital Signs Temperature: 98.2 F Blood Pressure: 105/47 Pulse: 51 Respirations: 15 Pulse Ox (%): 98 - Physical Exam General: Other (Sedated) HEENT: Other (Intubated) Respiratory: Crackles/rales, Other (Upper airway transmitted sounds.) Cardiovascular: No edema, Regular rate/rhythm, Normal S1 S2 Gastrointestinal: Normal bowel sounds, Soft and benign Neurological: Other (Moves all extremities spontaneously.) Assessment And Plan - Current Problems (Diagnosis) (1) Acute respiratory failure with hypoxia Current Visit: Yes Status: Acute (2) Pneumonia Current Visit: Yes Status: Acute (3) Elevated troponin Current Visit: Yes Status: Acute (4) Sepsis Current Visit: Yes Status: Acute - Plan Continue mechanical ventilation. Status post 2 units PRBC transfusion Monitor hemoglobin and transfuse p.r.n. Monitor for active bleeding Continue IV protonix Continue IV antibiotics Serial chest x-ray Pulmonary is following. Cardiology input appreciated. Elevated troponin secondary to sepsis and induced ischemia. Repeating optimize electrolytes. Monitor renal function and CBC. Patient is waiting bed availability for transfer. Physician Review: Patient Assessed, Agree with Above Assessment and Plan
[2020-03-16] MEDS: IPRATROPIUM BROM 0.5MG/2.5ML NEB SCH ×2 (14:00→20:10)
[2020-03-16] MEDS ORDERED: IPRATROPIUM BROM 0.5MG/2.5ML ONE ×2 (14:11→20:23)
[2020-03-16] MEDS ORDERED: METHYLPREDNISOLONE 40 MG INJ ONE ×2 (18:45→20:52)
[2020-03-16] MEDS ORDERED: propofoL 200 MG/20 ML VIAL IV ONE (23:44)
[2020-03-17] MEDS: propofoL 1,000 MG/100 ML VIAL IV PRN ×5 (00:28→14:06)
[2020-03-17] MEDS: IPRATROPIUM BROM 0.5MG/2.5ML NEB SCH ×3 (02:00→13:11)
[2020-03-17] MEDS ORDERED: propofoL 1,000 MG/100 ML VIAL IV ONE ×2 (04:24→14:12)
[2020-03-17 04:30] LABS: Absolute Lymphocytes (CBC) 0.5 K/uL (0.7-4.9); Basophils % 0.2 % (0-1.3); Hematocrit 29.9 % (36.0-45.0); Lymphocytes % 8.4 % (15.3-44.8); MPV 9.6 fL (7.6-11.3); RBC Red Blood Cell Count 3.94 M/uL (3.86-4.86)
[2020-03-17 04:50] LABS: Potassium 3.8 mmol/L (3.5-5.1)
[2020-03-17 04:58] LABS: Blood Morphology Comment NOTED (NOT SEEN); Hypochromasia 1+; Platelet Estimate ADEQ
[2020-03-17] MEDS: INSULIN -REGULAR HUMAN 50 UNIT/0.5 ML ML SQ SCH ×2 (05:24)
[2020-03-17] MEDS ORDERED: KCL 20 MEQ/100 mL IVPB 20 MEQ/100 ML BAG IV SCH (06:00)
[2020-03-17] MEDS: ARFORMOTEROL TARTRATE 15 MCG/2 ML VIAL.NEB NEB SCH (07:56)
[2020-03-17] MEDS ORDERED: IPRATROPIUM BROM 0.5MG/2.5ML ONE ×2 (08:06→13:20)
[2020-03-17] MEDS: METHYLPREDNISOLONE 125 MG INJ IV SCH (08:48)
[2020-03-17] MEDS ORDERED: METHYLPREDNISOLONE 40 MG INJ ONE (08:52)
[2020-03-17] MEDS: Levofloxacin 250mg IV 250 MG/50 ML BAG IV SCH (08:53)
[2020-03-17] MEDS ORDERED: PANTOPRAZOLE 40 MG INJ ONE (08:53)
[2020-03-17] MEDS: PANTOPRAZOLE 40 MG INJ IVP SCH (08:53)
[2020-03-17 10:24] VITALS: TEMP 98.4
--- NOTE | 2020-03-17 11:39 | RAD REPORT ---
EXAM DESCRIPTION: RAD - Chest Single View - 03/17/2020 10:56 am CLINICAL HISTORY: Resp. Flr. Chest pain. COMPARISON: Chest Single View dated 03/15/2020; Chest Single View dated 03/14/2020; Chest Single View dated 03/14/2020; Chest Single View dated 03/14/2020; Chest For Pe Angio dated 03/15/2020 FINDINGS: Portable technique limits examination quality. Tip of the ET tube is above the shamir. Left-sided venous catheter tip is in the SVC. Opacification o f the inferior right lung appears mildly improved since prior study. The heart is mildly enlarged. IMPRESSION: Mild improvement in right lung aeration is noted since comparative study.
[2020-03-17 14:27] VITALS: BP 121/52
== END 2020-03-17 14:15 | disposition short-term general hospital (02) | DRG 871 ==
LOC: ER 23:58 → ERHOLD 03-13 01:47
PROVIDERS: ADMIT Internal Medicine; ATTEND Internal Medicine
PROC: 5A1945Z Respiratory Ventilation, 24-96 Consecutive Hours (ICD-10-PCS; principal; 2020-03-13)
PROC: 30233N1 Transfusion of Nonautologous Red Blood Cells into Peripheral Vein, Percutaneous Approach (ICD-10-PCS; 2020-03-13)
PROC: 0BH17EZ Insertion of Endotracheal Airway into Trachea, Via Natural or Artificial Opening (ICD-10-PCS; 2020-03-14)
PROC: 5A1945Z Respiratory Ventilation, 24-96 Consecutive Hours (ICD-10-PCS; 2020-03-14)
PROC: 0BH17EZ Insertion of Endotracheal Airway into Trachea, Via Natural or Artificial Opening (ICD-10-PCS; 2020-03-14)
PROC: 02HV33Z Insertion of Infusion Device into Superior Vena Cava, Percutaneous Approach (ICD-10-PCS; 2020-03-14)
DX: A41.9 Sepsis, unspecified organism (principal); J18.9 Pneumonia, unspecified organism; J96.21 Acute and chronic respiratory failure with hypoxia; J96.22 Acute and chronic respiratory failure with hypercapnia; E87.2 Acidosis; J44.0 Chronic obstructive pulmonary disease with (acute) lower respiratory infection; D62 Acute posthemorrhagic anemia; K92.2 Gastrointestinal hemorrhage, unspecified; E87.0 Hyperosmolality and hypernatremia; I24.8 Other forms of acute ischemic heart disease; E87.6 Hypokalemia; I12.9 Hypertensive chronic kidney disease with stage 1 through stage 4 chronic kidney disease, or unspecified chronic kidney disease; N18.9 Chronic kidney disease, unspecified; E78.5 Hyperlipidemia, unspecified; I25.10 Atherosclerotic heart disease of native coronary artery without angina pectoris; R79.89 Other specified abnormal findings of blood chemistry; R79.1 Abnormal coagulation profile; Z87.891 Personal history of nicotine dependence; Z99.81 Dependence on supplemental oxygen; Z79.82 Long term (current) use of aspirin; Z79.899 Other long term (current) drug therapy; Z79.02 Long term (current) use of antithrombotics/antiplatelets; Z20.828 Contact with and (suspected) exposure to other viral communicable diseases
CPT/HCPCS: 36415; 51702; 71045; 71275; 74018; 80048; 80053; 80076; 80202; 80307; 81003; 81015; 82805; 82947; 83605; 83735; 83880; 84484; 85014; 85018; 85025; 85379; 85610; 85730; 86140; 86850; 86900; 86901; 87040; 87070; 87205; 87804; 93005; 93306; 94002; 94003; 94640; 99291; C9113; J0456; J0696; J1644; J1650; J2704; J2920; J3370; J3480; J7030; J7040; J7050; J7605; P9016; Q9967; U0003